=== PATIENT | female | born 1960 | race Caucasian/White ===

== ENCOUNTER 2017-12-23 10:11 | Emergency (ER) | payer MEDICARE, MEDICAID, SELFPAY ==
--- NOTE | 2017-12-23 10:24 | DI.RAD.S_ITS ---
PROCEDURE: XR CHEST 1V INDICATIONS: chest pain TECHNIQUE: One view of the chest was acquired. COMPARISON: [facility], CR, XR CHEST 1 VIEW, 08/14/2017, 10:53. FINDINGS: Surgical changes and devices: None. Lungs and pleura: No pleural effusions or pneumothorax. Lungs are clear. Mediastinum: Mediastinal contours appear normal. Heart size is normal. Bones and chest wall: No suspicious bony lesions. Degenerative changes of the spine and shoulders are not adequately evaluated. Overlying soft tissues appear unremarkable. IMPRESSION: Stable chest. No acute cardiopulmonary process is evident. Dictated by: Krish Egan M.D. on 12/23/2017 at 11:02 Approved by: Krish Egan M.D. on 12/23/2017 at 11:03
[2017-12-23 10:27] VITALS: BP 132/86; PULSE 76; RESP 16; TEMP 36.8; O2SAT 95; BMI 40.3
[2017-12-23] MEDS: ONDANSETRON 4 MG/2 ML INJ IV (10:47)
[2017-12-23] MEDS: SODIUM CHLORIDE 0.9% 1,000 ML 1000 ML IV (10:47)
[2017-12-23 10:51] LABS: Add Manual Diff / Slide Review NO; Basophils Percent Auto 0.3 % (0-2); Eosinophils Percent Auto 3.6 % (2-4); Hematocrit 34.8 % (36-46); Hemoglobin 11.8 g/dL (12.0-16.0); Lymphocytes Percent Auto 32.6 % (25-40); Mean Corpuscular Hemoglobin 33.5 PG (26-34); Mean Corpuscular Volume 98.6 fL (80-100); Monocytes Percent Auto 11.3 % (3-14); Neutrophils Absolute Auto 4000 /uL (3000-5900); Neutrophils Percent Auto 52.2 % (50-75); Platelet Count 200 X10^3/uL (150-400); Red Blood Cell Count 3.53 X10^6/uL (4.0-5.2); Red Cell Distribution Width 14.3 % (11.6-14.8); White Blood Cell Count 7.7 X10^3/uL (4.5-11.0)
[2017-12-23 11:03] LABS: Alanine Aminotransferase 44 IU/L (9-52); Albumin 3.7 g/dL (3.5-5.0); Albumin Globulin Ratio 1.2 (1.0-2.8); Alkaline Phosphatase 181 U/L (38-126); Aspartate Aminotransferase 37 IU/L (14-36); BUN Creatinine Ratio 23.8 (6-22); Bilirubin Total 0.4 mg/dL (0.2-1.3); Blood Urea Nitrogen 19 mg/dL (7-17); Calcium 9.2 mg/dL (8.4-10.2); Carbon Dioxide 29 mmol/L (22-32); Chloride 104 mmol/L (98-107); Estimated Glomerular Filt Rate > 60.0 mL/min (>60); Glucose 116 mg/dL (70-100); HEMOLYSIS < 15 (0-50); Potassium 4.1 mmol/L (3.4-5.1); Sodium 140 mmol/L (137-145); Total Protein 6.7 g/dL (6.3-8.2)
[2017-12-23 11:08] LABS: Lactate (Lactic Acid) 1.2 mmol/L (0.7-2.1)
[2017-12-23 11:17] LABS: Troponin I < 0.012 ng/mL (0.01-0.034)
[2017-12-23 11:27] LABS: Procalcitonin < 0.05 ng/mL (<0.5)
[2017-12-23 11:27] LABS: Bacteria Urine None Seen; RBC Urine None Seen (0-5/HPF)
[2017-12-23 11:29] LABS: Appearance Urine UA CLEAR; Bilirubin Urine UA NEGATIVE (NEGATIVE); Color Urine UA YELLOW; Glucose Urine UA NEGATIVE (Normal); Ketones Urine UA NEGATIVE (NEGATIVE); Leukocyte Esterase Urine UA NEGATIVE (NEGATIVE); Nitrite Urine UA Negative (Negative); Occult Blood Urine UA NEGATIVE (Negative); Protein Urine UA NEGATIVE (Negative); Specific Gravity Urine UA 1.015 (1.000-1.035); Urobilinogen Urine UA 0.2 E.U./dL (0.2)
[2017-12-23 11:35] VITALS: BP 103/73; PULSE 71; RESP 16; O2SAT 94
--- NOTE | 2017-12-23 11:52 | DI.CT.S_ITS ---
PROCEDURE: CT HEAD/BRAIN WO CON INDICATIONS: 57 year-old woman with nausea she has known brain tumor - change? TECHNIQUE: Noncontrast 4.5 mm thick angled axial sections acquired from the foramen magnum to the vertex, with coronal and sagittal reformats. For radiation dose reduction, the following was used: automated exposure control, adjustment of mA and/or kV according to patient size. COMPARISON: [facility], MR, BRAIN W&W/O CONTRAST, 02/22/2011, 19:19. [facility], MR, MR BRAIN W&WO CON, 02/20/2016, 11:13. [facility], MR, MR BRAIN W&WO CON, 04/20/2016, 11:45. [facility], MR, MR BRAIN W&WO CON, 07/17/2016, 9:39. [facility], CT, CT HEAD WITHOUT CONTRAST, 08/14/2017, 9:29. [facility], MR, MR BRAIN W&WO CON, 01/29/2017, 9:09. [facility], MR, MR BRAIN WITH/WITHOUT CONTRAST, 09/12/2017, 12:02. FINDINGS: Image quality: Excellent. CSF spaces: Basal cisterns are patent. No extra-axial fluid collections. The ventricles are symmetric in size and shape. Brain: There is postsurgical changes in the left frontal lobe. Severe encephalomalacia in frontal lobes bilaterally with associated dystrophic calcifications are unchanged, presumably secondary to post radiation changes. No intracranial bleeds or masses. There is cerebral volume loss for age, with resultant ventricular and sulcal prominence. There are severe periventricular and deep white matter chronic small vessel ischemic changes. There is intracranial internal carotid artery atherosclerosis. Skull and face: Left frontal craniotomy. Calvarium and visualized facial bones appear intact, without suspicious lesions. Sinuses: Visualized sinuses and mastoids are clear. IMPRESSION: 1. No acute intracranial abnormalities. 2. Stable postsurgical changes in the left frontal lobe and stable bilateral frontal encephalomalacia. 3. Cerebral volume loss and chronic microvascular ischemic changes. Dictated by: Mike Zamora M.D. on 12/23/2017 at 12:12 Approved by: Mike Zamora M.D. on 12/23/2017 at 12:20
--- NOTE | 2017-12-23 11:52 | DI.CT.S_ITS ---
PROCEDURE: CT ABDOMEN PELVIS W CON INDICATIONS: 57 year old woman with abdominal pain, greater in lower quadrants, TECHNIQUE: After the administration of intravenous contrast, 5 mm thick sections acquired from the diaphragm to the symphysis. 5 mm coronal and sagittal reformats were acquired. For radiation dose reduction, the following was used: automated exposure control, adjustment of mA and/or kV according to patient size. COMPARISON: [facility], CT, ABD/PELVIS W/CON (PNL), 02/12/2014, 11:04. [facility], CT, CT ANGIO CHEST PE, 02/27/2016, 12:46. FINDINGS: Image quality: Excellent. ABDOMEN: Lung bases: Mild basilar scar/atelectasis. Heart size is normal. There is a small hiatal hernia and concentric thickening at the gastroesophageal junction. Solid organs: Diffuse hepatic fatty infiltration. Liver is normal in size and enhancement. Gallbladder is surgically absent. Biliary system is non dilated. Pancreas enhances normally. Spleen is normal in size and enhancement. No adrenal nodules. Kidneys demonstrate normal size and enhancement, without hydronephrosis. Peritoneum and bowel: Bowel loops demonstrate normal wall thickness and caliber. Appendix is not visualized. No inflammatory stranding in the right lower quadrant. Moderate amount of stool in colon. No free fluid or air. Nodes and vessels: No retroperitoneal or mesenteric adenopathy by size criteria. Aorta and inferior vena cava are normal in size. Miscellaneous: No ventral hernias. A nerve stimulator is noted in the sacrum. PELVIS: Genitourinary: Bladder wall thickness is normal. Miscellaneous: No inguinal hernias or adenopathy. Bones: No suspicious bony lesions. No vertebral body compression fractures. IMPRESSION: 1. Small hiatal hernia and concentric thickening at the gastroesophageal junction. 2. Hepatic steatosis. 3. Moderate amount of stool in colon. 4. Cholecystectomy. Dictated by: Mike Zamora M.D. on 12/23/2017 at 12:21 Approved by: Mike Zamora M.D. on 12/23/2017 at 12:30
[2017-12-23 13:00] VITALS: BP 106/65; PULSE 74; RESP 16; O2SAT 94
[2017-12-23 13:32] LABS: Lipase 189 U/L (23-300)
[2017-12-23 13:35] LABS: Culture Indicated Urine Cult Not Indicated; Squamous Epithelial Cell Urine 1-5 /HPF; WBC Urine 1-5/HPF (0-5/HPF)
[2017-12-23 14:07] LABS: Troponin I < 0.012 ng/mL (0.01-0.034)
[2017-12-23 14:30] VITALS: BP 115/71; PULSE 74; RESP 14; O2SAT 99
--- NOTE | 2017-12-23 14:45 | ED.CHESTPAIN ---
HPI - Chest Pain General Chief Complaint: Chest Pain Stated Complaint: Weakness and nausea Time Seen by Provider: 12/23/17 10:18 History of Present Illness HPI narrative: HPI 57-year-old obese female with history of meningioma presents from a nursing facility complaining of transient hypotension (SBP reportedly in the 80s), poorly characterized chest pain of roughly 3 hours duration, nausea, and mild abdominal discomfort. Patient denies fevers, chills, dysuria, shortness of breath, headache, changes in vision or hearing, or recent changes in her brain tumor on routine surveillance imaging. Patient unable to identify any provoking or relieving factors. M/S/F/SocHx notable for: [please see HPI]; remainder reviewed with patient and in chart. ROS: Negative constitutional, eye, cardiovascular, pulmonary, GI, , MSK, skin, neurologic, psychiatric, endocrine unless noted in the HPI. Exam Gen: [Pleasant, non-toxic appearing, resting comfortably.] HEENT: NC, AT, PEERL, EOMI. Resp: [Clear to auscultation bilaterally, normal work of breathing.] Card: RRR with no M/R/G, no crackles in lung bases, no pedal edema, [no ]JVD appreciated. GI: obese, no rebound, no guarding, no clear reproducible tenderness to palpation throughout all quadrants. Adult undergarment in place. Vascular: [Both ankles, calves, and thighs of equal size, no calf tenderness to palpation bilaterally.] MSK: [No] chest wall TTP. No visible deformities, strength and tone WNL. Skin: Normal color with no visible lesions. Neuro: AO x 3, no facial asymmetry, vision and hearing WNL. Psych: Mood and affect appropriate. [Labs / Imaging (pertinent):] WBC 7.7, Hb 11.8, PT/INR 1.0, Na 140, K 4.1, total bilirubin 0.4, AST 37, ALT 44, ALP 181, lipase 189. PT/INR 1.0 Troponin <0.012, troponin (repeat) <0.012 procalcitonin <0.05, lactate 1.2 UA - negative nitrate, negative leukocyte esterase, no bacteria. EKG: SR at [75] bpm, no DC segment depressions, no new ST segment changes, new LBBB, or T-wave changes that would suggest acute ischemia. CT head: no acute intracranial abnormalities. Stable postsurgical changes in the left frontal nope and stable bilateral frontal encephalomalacia. Surgical volume loss and chronic microvascular ischemic changes. CT abdomen/pelvis: small hiatal hernia and concentric thickening at the gastroesophageal junction. Hepatic steatosis. Moderate amount of stool in the colon. Cholecystectomy. CXR: [No acute cardiopulmonary disease process]. MDM Previous chart, nursing note, and vitals reviewed. A: 57-year-old obese female with history of meningioma presents from a nursing facility complaining of transient hypotension (SBP reportedly in the 80s), poorly characterized chest pain of roughly 3 hours duration, nausea, and mild abdominal discomfort. DDx: ACS, unstable angina, pericarditis, myocarditis, dissection, PE, AAA, sepsis, dehydration. Evaluation: patient's symptoms are of unclear etiology, they were largely resolved at time of presentation or asymptomatic throughout the ED course. Patient's vital signs were monitoring stable throughout her ED course. Patient CT head was without evidence of acute changes, her CT abdomen and pelvis was without evidence of explaining etiology, her chest x-ray was clear, there is no evidence of ACS by nonischemic EKG and a negative troponin, new signs on history exam to suggest PE. Patient is without anemia. Labs, history, exam as well as imaging are without evidence of sepsis or an active infectious process. Unstable angina was considered on the differential, however patient symptoms are highly atypical, as such is appropriate for PCP follow-up. ED Course: 1 L NS and 4 mg Zofran given with initial evaluation. Disposition: [Discharge with PCP follow up. Return to care precautions given verbally and in writing. Zofran Rx provided. Impression: nausea, chest pain (please reference below for remainder of encounter information) Related Data Home Medications Medication Instructions Recorded Confirmed Fish Oil 1 cap PO DAILY 12/23/17 12/23/17 Vitamin D3 1 tab PO DAILY 12/23/17 12/23/17 acetaminophen 650 mg PO Q4H PRN 12/23/17 12/23/17 aspirin 81 mg PO DAILY 12/23/17 12/23/17 citalopram 20 mg PO DAILY 12/23/17 12/23/17 dexamethasone 2 mg PO QPM 12/23/17 12/23/17 folic acid 1 tab PO QPM 12/23/17 12/23/17 ibuprofen 400 mg PO BID 12/23/17 12/23/17 magnesium oxide 400 mg PO DAILY 12/23/17 12/23/17 melatonin 6 mg PO BEDTIME 12/23/17 12/23/17 midodrine 5 mg PO TID 12/23/17 12/23/17 nystatin [Nystop] 1 applic TOPICAL Q6H PRN 12/23/17 12/23/17 omeprazole 20 mg PO BID 12/23/17 12/23/17 ondansetron HCl 4 mg PO Q6H PRN 12/23/17 12/23/17 oxycodone-acetaminophen 1 tab PO BEDTIME PRN 12/23/17 12/23/17 phenytoin sodium extended 2 cap PO BID 12/23/17 12/23/17 simvastatin 20 mg PO QPM 12/23/17 12/23/17 tolterodine 4 mg PO DAILY 12/23/17 12/23/17 Allergies Allergy/AdvReac Type Severity Reaction Status Date / Time adhesive tape Allergy Unknown Verified 12/23/17 10:57 escitalopram Allergy Unknown Verified 12/23/17 10:57 lamotrigine Allergy Unknown Verified 12/23/17 10:57 levetiracetam Allergy Unknown Verified 12/23/17 10:57 Penicillins Allergy Unknown Verified 12/23/17 10:57 silicone Allergy Unknown Verified 12/23/17 10:57 zonisamide Allergy Unknown Verified 12/23/17 10:57 [facility] Social History Smoking Status: Never smoker Exam Initial Vital Signs Initial Vital Signs: Vital Signs Temperature 98.2 F 12/23/17 10:27 Pulse Rate 76 12/23/17 10:27 Respiratory Rate 16 12/23/17 10:27 Blood Pressure 132/86 H 12/23/17 10:27 Pulse Oximetry 95 08/20/18 10:27 Course Orders Ordered: ED Orders 12/23/17 10:24 XR chest 1V Stat 12/23/17 10:42 Complete Blood Count AUTO DIFF Stat Comprehensive Metabolic Panel Stat Lactate (Lactic Acid) Stat Lipase Stat Procalcitonin Stat Prothrombin Time INR Stat Troponin I Stat 12/23/17 11:15 Urinalysis and Microscopic Stat 12/23/17 11:52 CT abdomen pelvis w con Stat CT head/brain wo con Stat 12/23/17 13:40 Troponin I Stat Discontinued Medications Sodium Chloride (Normal Saline 0.9%) 1,000 mls @ 1,000 mls/hr IV BOLUS ONE Stop: 12/23/17 11:23 Last Infusion: 12/23/17 11:36 Dose: 0 mls/hr Admin: 12/23/17 10:47 Dose: 1,000 mls/hr Ondansetron HCl (Zofran) 4 mg IV NOW ONE Stop: 12/23/17 10:25 Last Admin: 12/23/17 10:47 Dose: 4 mg Vital Signs - 8 hr 12/23/17 10:27 12/23/17 11:35 12/23/17 13:00 Temperature 98.2 F Pulse Rate 76 71 74 Respiratory Rate 16 16 16 Blood Pressure 132/86 H Blood Pressure [Right Arm] 103/73 106/65 Pulse Oximetry 95 94 94 12/23/17 14:30 Temperature Pulse Rate 74 Respiratory Rate 14 Blood Pressure Blood Pressure [Right Arm] 115/71 Pulse Oximetry 99 MDM - Chest Pain Lab Data Result diagrams: 12/23/17 10:42 12/23/17 10:42 Lab Results 12/23/17 12/23/17 12/23/17 Range/Units 10:42 10:42 10:42 WBC 7.7 (4.5-11.0) X10^3/uL RBC 3.53 L (4.0-5.2) X10^6/uL Hgb 11.8 L (12.0-16.0) g/dL Hct 34.8 L (36-46) % MCV 98.6 (80-100) fL MCH 33.5 (26-34) PG MCHC 34.0 (30-36) % RDW 14.3 (11.6-14.8) % Plt Count 200 (150-400) X10^3/uL Neut % (Auto) 52.2 (50-75) % Lymph % (Auto) 32.6 (25-40) % [place] % (Auto) 11.3 (3-14) % Eos % (Auto) 3.6 (2-4) % Baso % (Auto) 0.3 (0-2) % Neut # (Auto) 4000 (0150-2269) /uL PT (10.1-12.7) SECONDS INR (0.9-1.3) Sodium Cancelled Potassium Cancelled Chloride Cancelled Carbon Dioxide Cancelled BUN Cancelled Creatinine Cancelled Estimated GFR Cancelled BUN/Creatinine Ratio Cancelled Glucose Cancelled Lactate 1.2 (0.7-2.1) mmol/L Calcium Cancelled Total Bilirubin Cancelled AST Cancelled ALT Cancelled Alkaline Phosphatase Cancelled Troponin I (0.01-0.034) ng/mL Total Protein Cancelled Albumin Cancelled Globulin Cancelled Albumin/Globulin Ratio Cancelled Lipase (23-300) U/L Procalcitonin (<0.5) ng/mL Specimen Hemolysis Cancelled Urine Color Urine Appearance Urine pH (4.5-8.0) Ur Specific [place] (1.000-1.035) Urine Protein (Negative) Urine Glucose (UA) (Normal) g/dL Urine Ketones (NEGATIVE) Urine Occult Blood (Negative) Urine Nitrate (Negative) Urine Bilirubin (NEGATIVE) Urine Urobilinogen (0.2) E.U./dL Ur Leukocyte Esterase (NEGATIVE) Urine RBC (0-5/HPF) Urine WBC (0-5/HPF) Ur Squamous Epith Cells Urine Bacteria (None) Ur Culture Indicated? Micro UA Comment 12/23/17 12/23/17 12/23/17 Range/Units 10:42 10:42 10:42 WBC (4.5-11.0) X10^3/uL RBC (4.0-5.2) X10^6/uL Hgb (12.0-16.0) g/dL Hct (36-46) % MCV (80-100) fL MCH (26-34) PG MCHC (30-36) % RDW (11.6-14.8) % Plt Count (150-400) X10^3/uL Neut % (Auto) (50-75) % Lymph % (Auto) (25-40) % [place] % (Auto) (3-14) % Eos % (Auto) (2-4) % Baso % (Auto) (0-2) % Neut # (Auto) (5477-0389) /uL PT 11.0 (10.1-12.7) SECONDS INR 1.0 (0.9-1.3) Sodium 140 Potassium 4.1 Chloride 104 Carbon Dioxide 29 BUN 19 H Creatinine 0.80 Estimated GFR > 60.0 BUN/Creatinine Ratio 23.8 H Glucose 116 H Lactate (0.7-2.1) mmol/L Calcium 9.2 Total Bilirubin 0.4 AST 37 H ALT 44 Alkaline Phosphatase 181 H Troponin I < 0.012 (0.01-0.034) ng/mL Total Protein 6.7 Albumin 3.7 Globulin 3.0 Albumin/Globulin Ratio 1.2 Lipase 189 (23-300) U/L Procalcitonin < 0.05 (<0.5) ng/mL Specimen Hemolysis Urine Color Urine Appearance Urine pH (4.5-8.0) Ur Specific [place] (1.000-1.035) Urine Protein (Negative) Urine Glucose (UA) (Normal) g/dL Urine Ketones (NEGATIVE) Urine Occult Blood (Negative) Urine Nitrate (Negative) Urine Bilirubin (NEGATIVE) Urine Urobilinogen (0.2) E.U./dL Ur Leukocyte Esterase (NEGATIVE) Urine RBC (0-5/HPF) Urine WBC (0-5/HPF) Ur Squamous Epith Cells Urine Bacteria (None) Ur Culture Indicated? Micro UA Comment 12/23/17 12/23/17 Range/Units 11:15 13:40 WBC (4.5-11.0) X10^3/uL RBC (4.0-5.2) X10^6/uL Hgb (12.0-16.0) g/dL Hct (36-46) % MCV (80-100) fL MCH (26-34) PG MCHC (30-36) % RDW (11.6-14.8) % Plt Count (150-400) X10^3/uL Neut % (Auto) (50-75) % Lymph % (Auto) (25-40) % [place] % (Auto) (3-14) % Eos % (Auto) (2-4) % Baso % (Auto) (0-2) % Neut # (Auto) (1757-1505) /uL PT (10.1-12.7) SECONDS INR (0.9-1.3) Sodium Potassium Chloride Carbon Dioxide BUN Creatinine Estimated GFR BUN/Creatinine Ratio Glucose Lactate (0.7-2.1) mmol/L Calcium Total Bilirubin AST ALT Alkaline Phosphatase Troponin I < 0.012 (0.01-0.034) ng/mL Total Protein Albumin Globulin Albumin/Globulin Ratio Lipase (23-300) U/L Procalcitonin (<0.5) ng/mL Specimen Hemolysis Urine Color Yellow Urine Appearance Clear Urine pH 6.0 (4.5-8.0) Ur Specific [place] 1.015 (1.000-1.035) Urine Protein Negative (Negative) Urine Glucose (UA) Negative (Normal) g/dL Urine Ketones Negative (NEGATIVE) Urine Occult Blood Negative (Negative) Urine Nitrate Negative (Negative) Urine Bilirubin Negative (NEGATIVE) Urine Urobilinogen 0.2 (0.2) E.U./dL Ur Leukocyte Esterase Negative (NEGATIVE) Urine RBC None seen (0-5/HPF) Urine WBC 1-5/hpf (0-5/HPF) Ur Squamous Epith Cells 1-5 /hpf Urine Bacteria None seen (None) Ur Culture Indicated? Cult not indicated Micro UA Comment Not Reportable Discharge Plan Departure Prescriptions: No Action melatonin 3 mg Tablet 6 mg PO BEDTIME RF: 0 folic acid 400 mcg Tablet 1 tab PO QPM RF: 0 aspirin 81 mg Tablet,Delayed Release (Dr/Ec) 81 mg PO DAILY RF: 0 citalopram 20 mg tablet 20 mg PO DAILY RF: 0 magnesium oxide 400 mg Tablet 400 mg PO DAILY RF: 0 dexamethasone 2 mg tablet 2 mg PO QPM RF: 0 Fish Oil 1 cap PO DAILY RF: 0 acetaminophen 325 mg Tablet 650 mg PO Q4H PRN (Reason: Fever Or Pain) RF: 0 tolterodine 4 mg capsule,extended release 24hr 4 mg PO DAILY RF: 0 ondansetron HCl 4 mg tablet 4 mg PO Q6H PRN (Reason: Nausea And Vomiting) RF: 0 midodrine 5 mg tablet 5 mg PO TID RF: 0 phenytoin sodium extended 100 mg capsule 2 cap PO BID RF: 0 oxycodone-acetaminophen 5-325 mg tablet 1 tab PO BEDTIME PRN (Reason: moderate pain/discomfort) RF: 0 simvastatin 20 mg tablet 20 mg PO QPM RF: 0 ibuprofen 400 mg Tablet 400 mg PO BID RF: 0 omeprazole 20 mg capsule,delayed release(DR/EC) 20 mg PO BID RF: 0 nystatin [Nystop] 100,000 unit/gram powder 1 applic Topical Q6H PRN (Reason: Rash) RF: 0 Vitamin D3 1 tab PO DAILY RF: 0
== END 2017-12-23 15:02 | disposition home or self-care (01) ==
PROVIDERS: Emergency Provider Emergency Medicine; PCP Internal Medicine
DX: R07.89 Other chest pain (principal); R11.0 Nausea
CPT/HCPCS: 70450; 71045; 74177; 80053; 81001; 83605; 83690; 84145; 84484; 85025; 85610; 93005; 93010; 93041; 96361; 96374; 99285; J2405; Q9967

== ENCOUNTER → 2018-01-07 08:44 | Outpatient (REF) | payer MEDICARE, MEDICAID, SELFPAY ==
[2018-01-07 09:23] LABS: Phenytoin / Dilantin 7.9 ug/mL (10-20)
== END ==
LOC: LAB 08:44
PROVIDERS: PCP Internal Medicine; Visit Provider Internal Medicine
DX: E11.9 Type 2 diabetes mellitus without complications (principal); R56.9 Unspecified convulsions
CPT/HCPCS: 36415; 80185

== ENCOUNTER 2018-01-12 19:28 | Emergency (ER) | payer MEDICARE, MEDICAID, SELFPAY ==
[2018-01-12 19:32] VITALS: BP 139/83; PULSE 86; RESP 18; TEMP 36.7; O2SAT 97
--- NOTE | 2018-01-12 19:44 | PC.NURSE ---
pt reports acute onset dizziness while turning to get into my chair, fell backward into wall, struck back of head, denies LOC, reports headache/nausea began immediately following fall, nausea slightly improved following zofran 4mg ODT [employer], denies cough/cp/soa/fever/bowel pattern changes/dysuria or other sx, no neck/pain tenderness, moving all ext
--- NOTE | 2018-01-12 19:48 | PC.NURSE ---
Bedside POC CBG 261
--- NOTE | 2018-01-12 19:54 | ED.FALL ---
HPI - Fall General Chief Complaint: Syncope Stated Complaint: GLF Time Seen by Provider: 01/12/18 19:54 Source: patient and EMS Mode of arrival: EMS Limitations: no limitations History of Present Illness HPI Narrative: Patient states she lost her balance while getting out of her wheelchair and fell against the corner of the wall. She states she hit her head in the corner, as well as her sacral area. Patient states it is very common for her to lose her balance, and that she has had these issues ever since being treated for brain tumor 5 years ago. She states her tumor is in remission, but that after the radiation and chemotherapy, and she had ongoing issues, and has had to live in assisted living or worsens. She states she mainly has a headache and is nauseated now. She states this started after hitting her head. She also states that she has some sacral pain. Patient denies any other injuries. She did not fall all the way to the ground and did not lose consciousness. MD complaint: fall Onset (ago): minute(s) Fall from: standing Fall witnessed: no Place fall occurred: jail[facility] Loss of consciousness: none Prolonged down time: no Symptoms prior to fall: none Context: other Location of injury: head and back (Sacrum) Severity: moderate Quality: throbbing Associated symptoms (after fall): headache and unable to walk (Nausea) Related Data Home Medications Medication Instructions Recorded Confirmed Fish Oil 1 cap PO DAILY 12/23/17 01/07/18 Vitamin D3 1 tab PO DAILY 12/23/17 01/07/18 acetaminophen 650 mg PO Q4H PRN 12/23/17 01/07/18 aspirin 81 mg PO DAILY 12/23/17 01/07/18 citalopram 20 mg PO DAILY 12/23/17 01/07/18 dexamethasone 2 mg PO QPM 12/23/17 01/07/18 folic acid 1 tab PO QPM 12/23/17 01/07/18 ibuprofen 400 mg PO BID 12/23/17 01/07/18 magnesium oxide 400 mg PO DAILY 12/23/17 01/07/18 melatonin 6 mg PO BEDTIME 12/23/17 01/07/18 midodrine 5 mg PO TID 12/23/17 01/07/18 nystatin [Nystop] 1 applic TOPICAL Q6H PRN 12/23/17 01/07/18 omeprazole 20 mg PO BID 12/23/17 01/07/18 ondansetron HCl 4 mg PO Q6H PRN 12/23/17 01/07/18 oxycodone-acetaminophen 1 tab PO BEDTIME PRN 12/23/17 01/07/18 phenytoin sodium extended 2 cap PO BID 12/23/17 01/07/18 simvastatin 20 mg PO QPM 12/23/17 01/07/18 tolterodine 4 mg PO DAILY 12/23/17 01/07/18 insulin glargine (U-100) 100 20 unit SUBCUT .pm 15 Days ml 01/07/18 unit/mL (3 mL) subcutaneous pen pen needle, diabetic 32 gauge x #100 each 01/07/18 pen needle,diabetic dual safety 30 #100 each 01/07/18 gauge x 3/16 Previous Rx's Medication Instructions Recorded ondansetron HCl 4 mg PO TID-QID PRN #10 tab 12/23/17 Allergies Allergy/AdvReac Type Severity Reaction Status Date / Time adhesive tape Allergy Unknown Verified 01/07/18 15:02 escitalopram Allergy Unknown Verified 01/07/18 15:02 lamotrigine Allergy Unknown Verified 01/07/18 15:02 levetiracetam Allergy Unknown Verified 01/07/18 15:02 Penicillins Allergy Unknown Verified 01/07/18 15:02 silicone Allergy Unknown Verified 01/07/18 15:02 zonisamide Allergy Unknown Verified 01/07/18 15:02 Review of Systems Review of Systems All systems reviewed & are unremarkable except as noted in HPI and below Constitutional Denies chills, Denies fever(s), Reports headache(s) (Only since fall), Denies lethargy and Denies weakness Eyes Denies change in vision, Denies eye discharge, Denies irritation and Denies loss of vision ENT Ears, Nose, Mouth, and Throat: Denies change in voice, Reports headache(s) (Only since fall), Denies neck pain and Denies sore throat Cardiovascular Denies chest pain, Denies irregular heart rhythm, Denies lightheadedness, Denies palpitations, Denies dyspnea, Denies dyspnea on exertion and Denies orthopnea Respiratory Denies cough, Denies dyspnea, Denies dyspnea on exertion and Denies wheezing Gastrointestinal Gastrointestinal: Denies abdominal pain, Denies change in bowel habits, Denies diarrhea, Denies nausea and Denies vomiting Genitourinary Denies hematuria, Denies flank pain, Denies urinary incontinence and Denies urinary urgency Musculoskeletal Denies neck pain Comments: Sacral pain Integumentary/Breasts Denies pruritus, Denies erythema, Denies rash and Denies wounds Neurologic Denies confusion, Reports headache(s) (Only since fall), Denies loss of vision and Denies weakness Psychiatric Denies anxiety, Denies confusion, Denies depression, Denies homicidal ideation and Denies suicidal ideation Endocrine Denies palpitations Hematologic/Lymphatic Denies easy bruising Allergic/Immunologic Denies wheezing Exam Initial Vital Signs Initial Vital Signs: Vital Signs Temperature 98.1 F 01/12/18 19:32 Pulse Rate 86 01/12/18 19:32 Respiratory Rate 18 01/12/18 19:32 Blood Pressure 139/83 01/12/18 19:32 Pulse Oximetry 97 01/12/18 19:32 Const General: cooperative and well developed Nutritional Appearance: well nourished Orientation: alert, awake, oriented x3 and not confused HENTX Head: normocephalic and atraumatic Ears: external ears normal and TM's normal bilaterally Nose: external nose normal and No nasal discharge Face and sinus: face symmetric and No dry mucous membranes Mouth: oral mucosae normal and moist mucous membranes Eyes General: appearance normal, both eyes and all related structures Eyelids: eyelids normal Conjunctivae: conjunctivae normal Sclera: sclerae normal Pupils: PERRL EOM: EOM intact bilaterally Neck Neck: normal visual inspection, trachea midline, No lymphadenopathy, No midline deformity and No JVD Lymphatic: No lymphedema Chest Chest: normal inspection of the chest Resp Effort & Inspection: normal respiratory effort, able to speak in complete sentences, no respiratory distress and no use of accessory muscles Auscultation: clear to auscultation bilaterally, no rales, no rhonchi and no wheezes Cardio Rate: regular rate Rhythm: regular rhythm Heart Sounds: no click, no gallops, no murmurs and no rubs Pulses: normal peripheral pulses GI Inspection: non-distended Palpation: soft, no hepatosplenomegaly, No guarding, No pulsatile mass and No tender Auscultation: normal bowel sounds Back/Spine/Pelvis Back: No CVA tenderness Cervical Spine: cervical ROM normal and No pain with cervical ROM Thoracic/Lumbar Spine: thoracic and lumbar spine normal to inspection Sacrum: tenderness (Mild) Skin General: no rashes or lesions noted, No jaundice and No petechiae Neuro General: alert, oriented x3, gait normal and no focal motor deficits Speech: speech normal Extrem General: full ROM, no clubbing, cyanosis or edema, no pedal edema and no calf tenderness Psych Appearance: well kempt Mental Status: mental status grossly normal Attitude: cooperative Thought Content: normal and suicidality Judgment: judgment good [facility] Medical History Meningioma (Chronic ~2011) Diabetes mellitus type 2, insulin dependent (Chronic ~2007) Cognitive dysfunction (Chronic) Depression (Chronic) Urinary incontinence (Chronic) Other and unspecified hyperlipidemia (Chronic) Orthostatic hypotension (Chronic) Seizure disorder (Chronic) GERD without esophagitis (Chronic) Surgical History No pertinent past surgical history (Acute) Social History marital status: number of children: 3 lives independently: Yes caregiver/support person: Yes housing: assisted living facility pets and animals: No education level: high school occupational status: disabled Previous occupational history: [employer] in [place] duncan/bahai: None leisure activities: games (Bingo) and other (Movies, TV) Smoking Status: Former smoker Tobacco: How many years used: 2 Smokeless tobacco user: other (Cigarettes) quit status: quit date established (2010) second hand exposure: No alcohol intake: never substance use type: does not use Course Course Narrative: Patient was stable throughout her stay in the emergency department. She was treated symptomatically with Zofran and Dilaudid. She was worked up with a CT scan of the brain, which was negative. Orders Ordered: Discontinued Medications Hydromorphone HCl (Dilaudid) 0.5 mg IV NOW ONE Stop: 01/12/18 20:04 Last Admin: 01/12/18 20:37 Dose: 0.5 mg Ondansetron HCl (Zofran) 4 mg IV NOW ONE Stop: 01/12/18 20:04 Last Admin: 01/12/18 20:37 Dose: 4 mg Vital Signs - 8 hr 01/12/18 19:32 Temperature 98.1 F Pulse Rate 86 Respiratory Rate 18 Blood Pressure 139/83 Pulse Oximetry 97 MDM - Fall Medical Records Attestation: I reviewed the patient's medical records. Imaging Data CT scan - head: Attestation: I personally reviewed and interpreted this imaging study as follows: My impression: Negative Radiologist's impression: [address] [address] [address] Scan Report Signed Patient: Yandy Claudio#: [id number] : 1Acct:[id number] Age/Sex: 57 / FDate of Service: 01/12/18 Loc: ED Accession Number: [id number] Procedure: CT head/brain wo con Ordering Provider: Flor Garza MD PROCEDURE: CT HEAD/BRAIN WO CON INDICATIONS: head injury TECHNIQUE: Noncontrast 4.5 mm thick angled axial sections acquired from the foramen magnum to the vertex, with coronal and sagittal reformats. For radiation dose reduction, the following was used: automated exposure control, adjustment of mA and/or kV according to patient size. COMPARISON: [facility], CT, CT HEAD/BRAIN WO CON, 12/23/2017, 11:35. FINDINGS: Image quality: Excellent. CSF spaces: Basal cisterns are patent. No extra-axial fluid collections. Ventricles are normal in size and shape. Brain: No midline shift. No intracranial masses or hemorrhage. Sainz-white matter interface is normal posteriorly but the area of encephalomalacia prominent at the frontal lobes bilaterally has not changed and is associated with areas of mildly serpiginous calcifications to the right of midline and focal left lateral ovoid calcification in the anterior insular cortex. Skull and face: Calvarium and visualized facial bones are intact, without suspicious lesions. Sinuses: Visualized sinuses and mastoids are clear. IMPRESSION: Stable over time with relatively severe bilateral frontal encephalomalacia related to presumed prior severe head trauma. No acute disease, no intracranial hemorrhage found. Old calcifications as discussed. Dictated by: Amadou Garcia M.D. on 01/12/2018 at 20:38 Approved by: Amadou Garcia M.D. on 01/12/2018 at 20:41 Discharge Plan Departure Patient Disposition: Home Clinical Impression: Closed head injury Discharge Date/Time: 01/12/18 21:42 Interventions: ED Discharge Assessment Last Done: 01/12/18 21:42 Instructions: DI for Closed Head Injury Activity Restrictions/Additional Instructions: Up your head CT looks good--no evidence of acute injury. Prescriptions: No Action pen needle, diabetic 32 gauge x 5/32 needle .ROUTE .MEDSUPPLY 30 Days Qty: 100 RF: 0 pen needle,diabetic dual safty 30 gauge x 3/16 needle .ROUTE .MEDSUPPLY 25 Days Qty: 100 RF: 0 insulin glargine 100 unit/mL (3 mL) insulin pen 20 unit SUBCUT .pm 15 Days RF: 0 melatonin 3 mg Tablet 6 mg PO BEDTIME RF: 0 folic acid 400 mcg Tablet 1 tab PO QPM RF: 0 aspirin 81 mg Tablet,Delayed Release (Dr/Ec) 81 mg PO DAILY RF: 0 citalopram 20 mg tablet 20 mg PO DAILY RF: 0 magnesium oxide 400 mg Tablet 400 mg PO DAILY RF: 0 dexamethasone 2 mg tablet 2 mg PO QPM RF: 0 Fish Oil 1 cap PO DAILY RF: 0 acetaminophen 325 mg Tablet 650 mg PO Q4H PRN (Reason: Fever Or Pain) RF: 0 tolterodine 4 mg capsule,extended release 24hr 4 mg PO DAILY RF: 0 ondansetron HCl 4 mg tablet 4 mg PO Q6H PRN (Reason: Nausea And Vomiting) RF: 0 midodrine 5 mg tablet 5 mg PO TID RF: 0 phenytoin sodium extended 100 mg capsule 2 cap PO BID RF: 0 oxycodone-acetaminophen 5-325 mg tablet 1 tab PO BEDTIME PRN (Reason: moderate pain/discomfort) RF: 0 simvastatin 20 mg tablet 20 mg PO QPM RF: 0 ibuprofen 400 mg Tablet 400 mg PO BID RF: 0 omeprazole 20 mg capsule,delayed release(DR/EC) 20 mg PO BID RF: 0 nystatin [Nystop] 100,000 unit/gram powder 1 applic Topical Q6H PRN (Reason: Rash) RF: 0 Vitamin D3 1 tab PO DAILY RF: 0 ondansetron HCl 4 mg tablet 4 mg PO TID-QID PRN (Reason: nausea and vomiting) Qty: 10 RF: 0 Referrals: Naveen Vaughn MD [Primary Care Provider] - (Please follow up with your doctor as needed.)
--- NOTE | 2018-01-12 20:03 | DI.CT.S_ITS ---
PROCEDURE: CT HEAD/BRAIN WO CON INDICATIONS: head injury TECHNIQUE: Noncontrast 4.5 mm thick angled axial sections acquired from the foramen magnum to the vertex, with coronal and sagittal reformats. For radiation dose reduction, the following was used: automated exposure control, adjustment of mA and/or kV according to patient size. COMPARISON: [facility], CT, CT HEAD/BRAIN WO CON, 12/23/2017, 11:35. FINDINGS: Image quality: Excellent. CSF spaces: Basal cisterns are patent. No extra-axial fluid collections. Ventricles are normal in size and shape. Brain: No midline shift. No intracranial masses or hemorrhage. Sainz-white matter interface is normal posteriorly but the area of encephalomalacia prominent at the frontal lobes bilaterally has not changed and is associated with areas of mildly serpiginous calcifications to the right of midline and focal left lateral ovoid calcification in the anterior insular cortex. Skull and face: Calvarium and visualized facial bones are intact, without suspicious lesions. Sinuses: Visualized sinuses and mastoids are clear. IMPRESSION: Stable over time with relatively severe bilateral frontal encephalomalacia related to presumed prior severe head trauma. No acute disease, no intracranial hemorrhage found. Old calcifications as discussed. Dictated by: Amadou Garcia M.D. on 01/12/2018 at 20:38 Approved by: Amadou Garcia M.D. on 01/12/2018 at 20:41
[2018-01-12 20:31] VITALS: BP 119/62; PULSE 80; RESP 19; O2SAT 96
[2018-01-12] MEDS: ONDANSETRON 4 MG/2 ML INJ IV (20:37)
[2018-01-12] MEDS: HYDROMORPHONE 1 MG INJ 0.5 MG IV (20:37)
[2018-01-12 21:42] VITALS: BP 118/72; PULSE 79; RESP 18; O2SAT 96
== END 2018-01-12 21:42 | disposition home or self-care (01) ==
PROVIDERS: Emergency Provider Emergency Medicine; PCP Internal Medicine
DX: S09.90XA Unspecified injury of head, initial encounter (principal); W18.30XA Fall on same level, unspecified, initial encounter
CPT/HCPCS: 36591; 70450; 93005; 93010; 96374; 96375; 99282; 99284; J1170; J2405

== ENCOUNTER → 2018-02-25 14:07 | Outpatient (CLI) | payer MEDICARE, MEDICAID, SELFPAY ==
[2018-02-25 14:52] LABS: Add Manual Diff / Slide Review NO; Basophils Percent Auto 1.3 % (0-2); Eosinophils Percent Auto 3.8 % (2-4); Hemoglobin 12.5 g/dL (12.0-16.0); Lymphocytes Percent Auto 27.4 % (25-40); Mean Corpuscular HGB Conc 33.9 % (30-36); Mean Corpuscular Hemoglobin 33.9 PG (26-34); Monocytes Percent Auto 9.2 % (3-14); Neutrophils Absolute Auto 4500 /uL (3000-5900); Neutrophils Percent Auto 58.3 % (50-75); Platelet Count 195 X10^3/uL (150-400); Red Cell Distribution Width 13.6 % (11.6-14.8); White Blood Cell Count 7.7 X10^3/uL (4.5-11.0)
[2018-02-25 15:19] LABS: Alanine Aminotransferase 61 IU/L (9-52); Albumin 4.1 g/dL (3.5-5.0); Albumin Globulin Ratio 1.4 (1.0-2.8); Alkaline Phosphatase 187 U/L (38-126); Aspartate Aminotransferase 52 IU/L (14-36); Bilirubin Total 0.4 mg/dL (0.2-1.3); Blood Urea Nitrogen 20 mg/dL (7-17); Calcium 9.1 mg/dL (8.4-10.2); Carbon Dioxide 25 mmol/L (22-32); Chloride 102 mmol/L (98-107); Estimated Glomerular Filt Rate > 60.0 mL/min (>60); Glucose 313 mg/dL (70-100); HEMOLYSIS < 15 (0-50); Magnesium 1.6 mg/dL (1.6-2.3); Phenytoin / Dilantin 16.7 ug/mL (10-20); Potassium 3.6 mmol/L (3.4-5.1); Sodium 139 mmol/L (137-145); Total Protein 7.1 g/dL (6.3-8.2)
[2018-02-25 15:25] LABS: Free T4, Direct Thyroxine 0.62 ng/dL (0.78-2.19)
== END ==
PROVIDERS: PCP Internal Medicine; Visit Provider Internal Medicine
DX: E11.9 Type 2 diabetes mellitus without complications (principal); R56.9 Unspecified convulsions; D32.9 Benign neoplasm of meninges, unspecified; G40.909 Epilepsy, unspecified, not intractable, without status epilepticus; R53.1 Weakness
CPT/HCPCS: 36415; 80053; 80185; 83036; 83735; 84439; 84443; 85025

== ENCOUNTER → 2018-03-03 12:11 | Outpatient (REF) | payer MEDICARE, MEDICAID, SELFPAY ==
[2018-03-03 12:14] LABS: Bacteria Urine None Seen; RBC Urine None Seen (0-5/HPF); WBC Urine None Seen (0-5/HPF)
[2018-03-03 12:20] LABS: Appearance Urine UA CLEAR; Bilirubin Urine UA NEGATIVE (NEGATIVE); Color Urine UA YELLOW; Glucose Urine UA 2+ g/dL (Normal); Ketones Urine UA NEGATIVE (NEGATIVE); Leukocyte Esterase Urine UA NEGATIVE (NEGATIVE); Nitrite Urine UA NEGATIVE (Negative); Occult Blood Urine UA NEGATIVE (Negative); Protein Urine UA NEGATIVE (Negative); Specific Gravity Urine UA 1.015 (1.000-1.035); Urobilinogen Urine UA 0.2 E.U./dL (0.2)
[2018-03-03 12:25] LABS: Culture Indicated Urine Cult Not Indicated; Urine Comments Microscopic Normal
== END ==
LOC: LAB 12:11
PROVIDERS: PCP Internal Medicine; Visit Provider Internal Medicine
DX: R41.0 Disorientation, unspecified (principal)
CPT/HCPCS: 81001

== ENCOUNTER → 2018-04-16 16:57 | Outpatient (REF) | payer MEDICARE, MEDICAID, SELFPAY ==
[2018-04-16 16:59] LABS: RBC Urine None Seen (0-5/HPF)
[2018-04-16 17:06] LABS: Appearance Urine UA CLEAR; Bilirubin Urine UA NEGATIVE (NEGATIVE); Color Urine UA YELLOW; Glucose Urine UA 2+ g/dL (Normal); Ketones Urine UA NEGATIVE (NEGATIVE); Leukocyte Esterase Urine UA NEGATIVE (NEGATIVE); Nitrite Urine UA NEGATIVE (Negative); Occult Blood Urine UA NEGATIVE (Negative); Protein Urine UA NEGATIVE (Negative); Specific Gravity Urine UA 1.025 (1.000-1.035); Urobilinogen Urine UA 0.2 E.U./dL (0.2)
[2018-04-16 17:39] LABS: Amorphous Sediment Urine 1+; Bacteria Urine Few (2-10); Culture Indicated Urine Cult Not Indicated; Mucus Urine 1+ (Negative); Squamous Epithelial Cell Urine 5-10 /HPF; WBC Urine 1-5/HPF (0-5/HPF)
== END ==
LOC: LAB 16:57
PROVIDERS: PCP Internal Medicine; Visit Provider Internal Medicine
DX: R39.89 Other symptoms and signs involving the genitourinary system (principal)
CPT/HCPCS: 81001

== ENCOUNTER → 2018-05-31 19:15 | Outpatient (REF) | payer MEDICARE, MEDICAID, SELFPAY ==
[2018-05-31 20:54] LABS: Influenza A and B by PCR Rapid Negative (Negative)
[2018-05-31 21:04] LABS: Strep Grp A by PCR Rapid Negative
== END ==
LOC: LAB 19:15
PROVIDERS: PCP Internal Medicine; Visit Provider Family Medicine
DX: R05 Cough (principal); R50.9 Fever, unspecified
CPT/HCPCS: 87400; 87651

== ENCOUNTER 2018-06-01 05:51 | Emergency (ER) | payer MEDICARE, MEDICAID, SELFPAY ==
[2018-06-01 05:55] VITALS: BP 158/84; PULSE 73; RESP 20; TEMP 36.8; O2SAT 94; BMI 39.9
--- NOTE | 2018-06-01 06:06 | ED.URI ---
HPI - URI/Sore Throat <Chuy Gasca MD - Last Filed: 06/01/18 19:32> General Chief Complaint: Upper Respiratory Symptoms Stated Complaint: Sore throat/cough/fever Time Seen by Provider: 06/01/18 06:06 Source: patient Mode of arrival: EMS Limitations: no limitations History of Present Illness HPI Narrative: The patient has multiple significant illnesses. She currently resides in the facility next to the hospital, a nursing care facility. She has been coughing for about 5 days. She complains sore throat and hoarseness. She has frequent cough. She complains of upper abdominal chest pain and lower sternal chest discomfort. The pain is exacerbated by coughing. She has no obvious cardiac disease. She states she has been around others with similar illness. She is a nonsmoker. She does not have CHF. She denies asthma. Related Data Home Medications Medication Instructions Recorded Confirmed aspirin 81 mg PO DAILY 12/23/17 06/01/18 citalopram 20 mg PO DAILY 12/23/17 06/01/18 ibuprofen 400 mg PO BID 12/23/17 06/01/18 magnesium oxide 400 mg PO DAILY 12/23/17 06/01/18 pen needle, diabetic 32 gauge x #100 each 01/07/18 02/25/18 5/32 pen needle,diabetic dual safety 30 #100 each 01/07/18 02/25/18 gauge x /16 insulin glargine [Basaglar KwikPen 30 unit SUBCUT DAILY 06/01/18 06/01/18 U-100 Insulin] Previous Rx's Medication Instructions Recorded potassium chloride ER 10 mEq 10 meq PO DAILY #30 cap 02/27/18 capsule,extended release cholecalciferol (vitamin D3) 1,000 1,000 unit PO DAILY #90 cap 03/04/18 unit capsule furosemide 20 mg tablet 20 mg PO DAILY #30 tab 03/17/18 phenytoin sodium extended 100 mg See Label Instructions PO .COMPLEX 04/24/18 capsule #60 cap folic acid 400 mcg tablet 0.4 mg PO QPM #90 tab 05/05/18 oxycodone-acetaminophen 5 mg-325 1 tab PO BEDTIME PRN #30 tab 05/15/18 mg tablet nystatin 100,000 unit/gram topical 1 applictn TOP DAILY #30 gram 05/23/18 powder Fish Oil #90 each 05/29/18 acetaminophen 325 mg tablet 650 mg PO Q4H PRN #90 tab 05/29/18 dexamethasone 2 mg tablet 2 mg PO BID #90 tab 05/29/18 glipizide 5 mg tablet 5 mg PO BID #60 tab 05/29/18 hydrocortisone 1 % topical cream 1 applictn TOP Q6H PRN #28 gram 05/29/18 insulin glargine (U-100) 100 30 unit SUBCUT DAILY #3 ml 05/29/18 unit/mL (3 mL) subcutaneous pen melatonin 3 mg tablet 6 mg PO BEDTIME #90 tab 05/29/18 metformin 1,000 mg tablet 1,000 mg PO BID #90 tab 05/29/18 midodrine 5 mg tablet 5 mg PO TID #90 tab 05/29/18 omeprazole 20 mg capsule,delayed 20 mg PO BID #90 cap 05/29/18 release ondansetron HCl 4 mg tablet 4 mg PO Q6H PRN #30 tab 05/29/18 simvastatin 20 mg tablet 20 mg PO QPM #90 tab 05/29/18 tolterodine ER 4 mg 4 mg PO DAILY #90 cap 05/29/18 capsule,extended release 24 hr azithromycin 250 mg PO DAILY 4 Days #4 tab 06/01/18 loratadine [Claritin] 10 mg PO DAILY #30 tab 06/01/18 Allergies Allergy/AdvReac Type Severity Reaction Status Date / Time adhesive tape Allergy Unknown Verified 06/01/18 06:57 escitalopram Allergy Unknown Verified 06/01/18 06:57 lamotrigine Allergy Unknown Verified 06/01/18 06:57 levetiracetam Allergy Unknown Verified 06/01/18 06:57 Penicillins Allergy Unknown Verified 06/01/18 06:57 silicone Allergy Unknown Verified 06/01/18 06:57 zonisamide Allergy Unknown Verified 06/01/18 06:57 Review of Systems <Chuy Gasca MD - Last Filed: 06/01/18 19:32> Review of Systems ROS Unobtainable: All systems reviewed & are unremarkable except as noted in HPI and below Constitutional Reports chills, Denies fever(s), Reports lethargy and Denies weakness Eyes Denies change in vision, Denies eye discharge and Denies irritation ENT Ears, Nose, Mouth, and Throat: Denies change in voice, Denies otalgia, Denies neck pain, Reports sore throat and Reports other (Hoarseness) Cardiovascular Reports chest pain (With cough), Denies diaphoresis, Denies syncope, Denies rapid heart rate, Denies pedal edema and Denies dyspnea on exertion Respiratory Denies change in phlegm color, Denies cough, Denies dyspnea on exertion and Denies wheezing Gastrointestinal Gastrointestinal: Reports abdominal pain (Epigastric abdominal pain with cough), Denies change in bowel habits, Denies diarrhea, Denies nausea and Denies vomiting Musculoskeletal Denies back pain and Denies neck pain Integumentary/Breasts Denies pruritus, Denies erythema, Denies rash and Denies wounds Neurologic Denies confusion, Denies syncope and Denies weakness Psychiatric Denies anxiety, Denies confusion and Denies depression Allergic/Immunologic Denies wheezing Exam <Chuy Gasca MD - Last Filed: 06/01/18 19:32> Initial Vital Signs Initial Vital Signs: Vital Signs Temperature 98.2 F 06/01/18 05:55 Pulse Rate 73 06/01/18 05:55 Respiratory Rate 20 06/01/18 05:55 Blood Pressure 158/84 H 06/01/18 05:55 Pulse Oximetry 94 06/01/18 05:55 Const General: well developed Nutritional Appearance: well nourished Orientation: alert, awake, oriented x3 and not confused [facility] Head: normocephalic and atraumatic Nose: external nose normal and No nasal discharge Face and sinus: sinuses nontender, face symmetric and no sinus tenderness Mouth: lip normal, moist mucous membranes and other (Oral pharyngeal erythema without exudate.) Teeth and gingiva: dentition normal Throat: tonsils normal and uvula midline Neck Neck: full ROM, supple, No lymphadenopathy and No JVD Chest Chest: tenderness (We will do so with palpation over the lower sternum. This is consistent with her complaint during the history) Resp Effort & Inspection: normal respiratory effort, able to speak in complete sentences, no respiratory distress and no use of accessory muscles Auscultation: rales (Diffuse bilaterally), rhonchi (Diffuse bilaterally.) and no wheezes Cardio Rate: regular rate Rhythm: regular rhythm Heart Sounds: no click, no gallops, no murmurs and no rubs Pulses: normal peripheral pulses GI Inspection: non-distended Palpation: soft, no hepatosplenomegaly and tender (Mildly tender across the upper abdomen. No guarding or rebound.) Auscultation: normal bowel sounds Back/Spine/Pelvis Back: No CVA tenderness Skin General: no rashes or lesions noted, No jaundice and No petechiae Neuro General: alert, oriented x3, gait normal and no focal motor deficits Speech: speech normal Extrem General: full ROM, no clubbing, cyanosis or edema, no pedal edema, no calf tenderness and No calf tenderness <Jose Daniel Greco DO - Last Filed: 06/01/18 08:42> Initial Vital Signs Initial Vital Signs: Vital Signs Temperature 98.2 F 06/01/18 05:55 Pulse Rate 73 06/01/18 05:55 Respiratory Rate 20 06/01/18 05:55 Blood Pressure 158/84 H 06/01/18 05:55 Pulse Oximetry 94 06/01/18 05:55 Course <Chuy Gasca MD - Last Filed: 06/01/18 19:32> Course Narrative: Following the DuoNeb she has residual left lower lung rales. Chest x-ray is suggestive of a small infiltrate. Additional lab workup was pending. Orders Ordered: Discontinued Medications Albuterol/Ipratropium (Duoneb) 3 ml INH NOW ONE Stop: 06/01/18 06:13 Last Admin: 06/01/18 06:18 Dose: 3 ml Albuterol/Ipratropium (Duoneb) 3 ml INH NOW ONE Stop: 06/01/18 07:33 Last Admin: 06/01/18 07:55 Dose: 3 ml Azithromycin (Zithromax) 500 mg PO NOW ONE Stop: 06/01/18 08:38 Last Admin: 06/01/18 08:55 Dose: 500 mg Sodium Chloride (Normal Saline 0.9%) 1,000 mls @ 150 mls/hr IV CONT VERONICA Last Infusion: 06/01/18 08:54 Dose: 0 mls/hr Admin: 06/01/18 08:16 Dose: 150 mls/hr Vital Signs - 8 hr 06/01/18 05:55 06/01/18 06:19 06/01/18 07:56 Temperature 98.2 F Pulse Rate 73 74 91 H Respiratory Rate 20 20 20 Blood Pressure 158/84 H Pulse Oximetry 94 96 94 <DO Joshua Flores Last Filed: 06/01/18 08:42> Orders Ordered: Discontinued Medications Albuterol/Ipratropium (Duoneb) 3 ml INH NOW ONE Stop: 06/01/18 06:13 Last Admin: 06/01/18 06:18 Dose: 3 ml Albuterol/Ipratropium (Duoneb) 3 ml INH NOW ONE Stop: 06/01/18 07:33 Last Admin: 06/01/18 07:55 Dose: 3 ml Azithromycin (Zithromax) 500 mg PO NOW ONE Stop: 06/01/18 08:38 Last Admin: 06/01/18 08:55 Dose: 500 mg Sodium Chloride (Normal Saline 0.9%) 1,000 mls @ 150 mls/hr IV CONT VERONICA Last Infusion: 06/01/18 08:54 Dose: 0 mls/hr Admin: 06/01/18 08:16 Dose: 150 mls/hr Vital Signs - 8 hr 06/01/18 05:55 06/01/18 06:19 06/01/18 07:56 Temperature 98.2 F Pulse Rate 73 74 91 H Respiratory Rate 20 20 20 Blood Pressure 158/84 H Pulse Oximetry 94 96 94 MDM - URI/Sore Throat <Chuy Gasca MD - Last Filed: 06/01/18 19:32> Medical Records Attestation: I reviewed the patient's medical records. Lab Data Attestation: I reviewed the patient's lab results. Result diagrams: 06/01/18 07:00 06/01/18 07:00 Lab Results 06/01/18 06/01/18 06/01/18 Range/Units 07:00 07:00 07:00 WBC 10.7 (4.5-11.0) X10^3/uL RBC 4.29 (4.0-5.2) X10^6/uL Hgb 14.4 (12.0-16.0) g/dL Hct 42.0 (36-46) % MCV 97.8 (80-100) fL MCH 33.5 (26-34) PG MCHC 34.2 (30-36) % RDW 14.3 (11.6-14.8) % Plt Count 180 (150-400) X10^3/uL Neut % (Auto) 65.5 (50-75) % Lymph % (Auto) 25.8 (25-40) % Schley % (Auto) 7.9 (3-14) % Eos % (Auto) 0.1 L (2-4) % Baso % (Auto) 0.7 (0-2) % Neut # (Auto) 7000 (5813-0515) /uL Lymph # (Auto) 2800 (8827-2979) /uL Schley # (Auto) 800 (0-900) /uL Eos # (Auto) 0 (0-450) /uL Baso # (Auto) 100 (0-100) /uL Sodium 138 (137-145) mmol/L Potassium 3.9 (3.4-5.1) mmol/L Chloride 101 (98-107) mmol/L Carbon Dioxide 27 (22-32) mmol/L BUN 21 H (7-17) mg/dL Creatinine 0.80 (0.52-1.04) mg/dL Estimated GFR > 60.0 (>60) mL/min BUN/Creatinine Ratio 26.3 H (6-22) Glucose 288 H (70-100) mg/dL Lactate 2.3 H (0.7-2.1) mmol/L Calcium 9.8 (8.4-10.2) mg/dL Total Creatine Kinase 60 (30-135) U/L CK-MB (CK-2) TNP CK-MB (CK-2) Rel Index TNP Troponin I < 0.012 (0.01-0.034) ng/mL Procalcitonin (<0.5) ng/mL Influenza A & B (PCR) (Negative) 06/01/18 06/01/18 Range/Units 07:00 07:06 WBC (4.5-11.0) X10^3/uL RBC (4.0-5.2) X10^6/uL Hgb (12.0-16.0) g/dL Hct (36-46) % MCV (80-100) fL MCH (26-34) PG MCHC (30-36) % RDW (11.6-14.8) % Plt Count (150-400) X10^3/uL Neut % (Auto) (50-75) % Lymph % (Auto) (25-40) % Schley % (Auto) (3-14) % Eos % (Auto) (2-4) % Baso % (Auto) (0-2) % Neut # (Auto) (0229-3876) /uL Lymph # (Auto) (4140-9183) /uL Schley # (Auto) (0-900) /uL Eos # (Auto) (0-450) /uL Baso # (Auto) (0-100) /uL Sodium (137-145) mmol/L Potassium (3.4-5.1) mmol/L Chloride (98-107) mmol/L Carbon Dioxide (22-32) mmol/L BUN (7-17) mg/dL Creatinine (0.52-1.04) mg/dL Estimated GFR (>60) mL/min BUN/Creatinine Ratio (6-22) Glucose (70-100) mg/dL Lactate (0.7-2.1) mmol/L Calcium (8.4-10.2) mg/dL Total Creatine Kinase (30-135) U/L CK-MB (CK-2) CK-MB (CK-2) Rel Index Troponin I (0.01-0.034) ng/mL Procalcitonin 0.13 (<0.5) ng/mL Influenza A & B (PCR) Negative (Negative) Point of Care Testing Rapid Strep A Negative Imaging Data Chest x-ray: My impression: Left lower lobe infiltrate. ECG Data Attestation: I personally reviewed and interpreted this ECG as follows: (Normal sinus rhythm rate [address] or T-wave changes. No ectopy.) <Jose Daniel Greco DO - Last Filed: 06/01/18 08:42> Lab Data Attestation: I reviewed the patient's lab results. Lab Results 06/01/18 06/01/18 06/01/18 Range/Units 07:00 07:00 07:00 WBC 10.7 (4.5-11.0) X10^3/uL RBC 4.29 (4.0-5.2) X10^6/uL Hgb 14.4 (12.0-16.0) g/dL Hct 42.0 (36-46) % MCV 97.8 (80-100) fL MCH 33.5 (26-34) PG MCHC 34.2 (30-36) % RDW 14.3 (11.6-14.8) % Plt Count 180 (150-400) X10^3/uL Neut % (Auto) 65.5 (50-75) % Lymph % (Auto) 25.8 (25-40) % Schley % (Auto) 7.9 (3-14) % Eos % (Auto) 0.1 L (2-4) % Baso % (Auto) 0.7 (0-2) % Neut # (Auto) 7000 (0724-6820) /uL Lymph # (Auto) 2800 (4052-2392) /uL Schley # (Auto) 800 (0-900) /uL Eos # (Auto) 0 (0-450) /uL Baso # (Auto) 100 (0-100) /uL Sodium 138 (137-145) mmol/L Potassium 3.9 (3.4-5.1) mmol/L Chloride 101 (98-107) mmol/L Carbon Dioxide 27 (22-32) mmol/L BUN 21 H (7-17) mg/dL Creatinine 0.80 (0.52-1.04) mg/dL Estimated GFR > 60.0 (>60) mL/min BUN/Creatinine Ratio 26.3 H (6-22) Glucose 288 H (70-100) mg/dL Lactate 2.3 H (0.7-2.1) mmol/L Calcium 9.8 (8.4-10.2) mg/dL Total Creatine Kinase 60 (30-135) U/L CK-MB (CK-2) TNP CK-MB (CK-2) Rel Index TNP Troponin I < 0.012 (0.01-0.034) ng/mL Procalcitonin (<0.5) ng/mL Influenza A & B (PCR) (Negative) 06/01/18 06/01/18 Range/Units 07:00 07:06 WBC (4.5-11.0) X10^3/uL RBC (4.0-5.2) X10^6/uL Hgb (12.0-16.0) g/dL Hct (36-46) % MCV (80-100) fL MCH (26-34) PG MCHC (30-36) % RDW (11.6-14.8) % Plt Count (150-400) X10^3/uL Neut % (Auto) (50-75) % Lymph % (Auto) (25-40) % Schley % (Auto) (3-14) % Eos % (Auto) (2-4) % Baso % (Auto) (0-2) % Neut # (Auto) (4635-2356) /uL Lymph # (Auto) (2911-6036) /uL Schley # (Auto) (0-900) /uL Eos # (Auto) (0-450) /uL Baso # (Auto) (0-100) /uL Sodium (137-145) mmol/L Potassium (3.4-5.1) mmol/L Chloride (98-107) mmol/L Carbon Dioxide (22-32) mmol/L BUN (7-17) mg/dL Creatinine (0.52-1.04) mg/dL Estimated GFR (>60) mL/min BUN/Creatinine Ratio (6-22) Glucose (70-100) mg/dL Lactate (0.7-2.1) mmol/L Calcium (8.4-10.2) mg/dL Total Creatine Kinase (30-135) U/L CK-MB (CK-2) CK-MB (CK-2) Rel Index Troponin I (0.01-0.034) ng/mL Procalcitonin 0.13 (<0.5) ng/mL Influenza A & B (PCR) Negative (Negative) Point of Care Testing Rapid Strep A Negative Imaging Data Chest x-ray: Radiologist's impression: [address] [address] XRay Report Signed Patient: Breana Claudio JMR#: [id number] : [id number]:[id number] Age/Sex: 58 / FDate of Service: 06/01/18 Loc: ED Accession Number: [id number] Procedure: XR chest 1V Ordering Provider: Chuy Gasca M.D. PROCEDURE: XR CHEST 1V INDICATIONS: Dyspnea. Cough TECHNIQUE: One view of the chest was acquired. COMPARISON: [facility], , XR CHEST 1V, 12/23/2017, 11:26. FINDINGS: Surgical changes and devices: None. Lungs and pleura: The lung volumes are small consistent with shallow inspiration. No pleural effusions or pneumothorax. Lungs are clear. Mediastinum: Mediastinal contours appear normal. Heart size is normal. Bones and chest wall: No suspicious bony lesions. Overlying soft tissues appear unremarkable. IMPRESSION: No acute cardiopulmonary disease. Dictated by: Mike Zamora M.D. on 06/01/2018 at 8:10 MDM Narrative Medical decision making narrative: Received turned over from day provider. Perform my own history and physical exam. Reviewed patient's labs. She does not have an elevated white blood cell count. Lactate is 2.1 however not tachycardic, not tachypneic, not hypoxic, not hypotensive, procalcitonin is negative. Chest x-ray shows no signs of pneumonia. She was given a 2nd DuoNeb for slight wheezing in the left upper lung field which did not improve much worse symptoms. Patient was afebrile. She does describe sinus congestion and postnasal drip. I feel that much of her symptoms are related to an upper respiratory infection. Given the fact that she is a resident at a care facility I feel that being more cautious and treating her with azithromycin is warranted. Do not feel like she needs treated for healthcare associated pneumonia given her labs and physical exam today. Patient was given the 1st dose of her antibiotics here in the emergency department. She was given return precautions. She expressed understanding and agreement with plan. Discharge Plan Departure Patient Disposition: Home Clinical Impression: Upper respiratory infection Discharge Date/Time: 06/01/18 09:12 Interventions: ED Discharge Assessment Last Done: 06/01/18 09:09 Instructions: DI for Viral Upper Respiratory Infection -- Adult Activity Restrictions/Additional Instructions: Recommend you take the antibiotics as directed. I also recommend you take the decongestants as directed. Contact your primary care doctor for a follow-up. Return to the emergency department for any new or worsening symptoms Prescriptions: New azithromycin 250 mg tablet 250 mg PO DAILY 4 Days Qty: 4 RF: 0 loratadine [Claritin] 10 mg tablet 10 mg PO DAILY Qty: 30 RF: 0 No Action cholecalciferol (vitamin D3) 1,000 unit capsule 1,000 unit PO DAILY Qty: 90 RF: 3 furosemide 20 mg tablet 20 mg PO DAILY Qty: 30 RF: 3 phenytoin sodium extended 100 mg capsule See Patient Comments PO .COMPLEX Qty: 60 RF: 3 folic acid 400 mcg tablet 0.4 mg PO QPM Qty: 90 RF: 0 oxycodone-acetaminophen 5-325 mg tablet 1 tab PO BEDTIME PRN (Reason: moderate pain/discomfort) Qty: 30 RF: 0 nystatin 100,000 unit/gram powder 1 applictn TOP DAILY Qty: 30 RF: 3 glipizide 5 mg tablet 5 mg PO BID Qty: 60 RF: 3 Fish Oil .ROUTE .MEDSUPPLY Qty: 90 RF: 0 melatonin 3 mg tablet 6 mg PO BEDTIME Qty: 90 RF: 0 simvastatin 20 mg tablet 20 mg PO QPM Qty: 90 RF: 0 tolterodine 4 mg capsule,extended release 24hr 4 mg PO DAILY Qty: 90 RF: 0 dexamethasone 2 mg tablet 2 mg PO BID Qty: 90 RF: 0 omeprazole 20 mg capsule,delayed release(DR/EC) 20 mg PO BID Qty: 90 RF: 0 midodrine 5 mg tablet 5 mg PO TID Qty: 90 RF: 0 acetaminophen 325 mg tablet 650 mg PO Q4H PRN (Reason: Fever Or Pain) Qty: 90 RF: 0 hydrocortisone [Anti-Itch (HC)] 1 % cream 1 applictn TOP Q6H PRN (Reason: rash) Qty: 28 RF: 0 ondansetron HCl 4 mg tablet 4 mg PO Q6H PRN (Reason: Nausea And Vomiting) Qty: 30 RF: 0 insulin glargine [Basaglar KwikPen U-100 Insulin] 100 unit/mL (3 mL) insulin pen 30 unit SUBCUT DAILY Qty: 3 RF: 3 metformin 1,000 mg tablet 1,000 mg PO BID Qty: 90 RF: 3 pen needle, diabetic 32 gauge x 5/32 needle .ROUTE .MEDSUPPLY 30 Days Qty: 100 RF: 0 pen needle,diabetic dual safty 30 gauge x 3/16 needle .ROUTE .MEDSUPPLY 25 Days Qty: 100 RF: 0 potassium chloride 10 mEq capsule, extended release 10 meq PO DAILY Qty: 30 RF: 0 aspirin 81 mg Tablet,Delayed Release (Dr/Ec) 81 mg PO DAILY RF: 0 citalopram 20 mg tablet 20 mg PO DAILY RF: 0 magnesium oxide 400 mg Tablet 400 mg PO DAILY RF: 0 ibuprofen 400 mg Tablet 400 mg PO BID RF: 0 insulin glargine [Basaglar KwikPen U-100 Insulin] 100 unit/mL (3 mL) Insulin Pen 30 unit SUBCUT DAILY RF: 0 ED Cosign/Signout <Chuy Gasca MD - Last Filed: 06/01/18 19:32> Sign Out Provider Sign Out Attestation: Clinically the patient has a LLL pneumonia. Ongoing testing splinted. Follow-up by Dr. Greco
[2018-06-01] MEDS: ALBUTEROL/IPRATROPIUM 3 ML AMPUL INH ×2 (06:18→07:55)
[2018-06-01 06:19] VITALS: PULSE 74; RESP 20; O2SAT 96
--- NOTE | 2018-06-01 06:19 | ED_ITS ---
HPI - URI/Sore Throat <Chuy Gasca MD - Last Filed: 06/01/18 19:32> General Chief Complaint: Upper Respiratory Symptoms Stated Complaint: Sore throat/cough/fever Time Seen by Provider: 06/01/18 06:06 Source: patient Mode of arrival: EMS Limitations: no limitations History of Present Illness HPI Narrative: The patient has multiple significant illnesses. She currently resides in the facility [facility] to the hospital, a nursing care facility. She has been coughing for about 5 days. She complains sore throat and hoarseness. She has frequent cough. She complains of upper abdominal chest pain and lower sternal chest discomfort. The pain is exacerbated by coughing. She has no obvious cardiac disease. She states she has been around others with similar illness. She is a nonsmoker. She does not have CHF. She denies asthma. Related Data Home Medications Medication Instructions Recorded Confirmed aspirin 81 mg PO DAILY 12/23/17 06/01/18 citalopram 20 mg PO DAILY 12/23/17 06/01/18 ibuprofen 400 mg PO BID 12/23/17 06/01/18 magnesium oxide 400 mg PO DAILY 12/23/17 06/01/18 pen needle, diabetic 32 gauge x #100 each 01/07/18 02/25/18 5/32 pen needle,diabetic dual safety 30 #100 each 01/07/18 02/25/18 gauge x /16 insulin glargine [Basaglar KwikPen 30 unit SUBCUT DAILY 06/01/18 06/01/18 U-100 Insulin] Previous Rx's Medication Instructions Recorded potassium chloride ER 10 mEq 10 meq PO DAILY #30 cap 02/27/18 capsule,extended release cholecalciferol (vitamin D3) 1,000 1,000 unit PO DAILY #90 cap 03/04/18 unit capsule furosemide 20 mg tablet 20 mg PO DAILY #30 tab 03/17/18 phenytoin sodium extended 100 mg See Label Instructions PO .COMPLEX 04/24/18 capsule #60 cap folic acid 400 mcg tablet 0.4 mg PO QPM #90 tab 05/05/18 oxycodone-acetaminophen 5 mg-325 1 tab PO BEDTIME PRN #30 tab 05/15/18 mg tablet nystatin 100,000 unit/gram topical 1 applictn TOP DAILY #30 gram 05/23/18 powder Fish Oil #90 each 05/29/18 acetaminophen 325 mg tablet 650 mg PO Q4H PRN #90 tab 05/29/18 dexamethasone 2 mg tablet 2 mg PO BID #90 tab 05/29/18 glipizide 5 mg tablet 5 mg PO BID #60 tab 05/29/18 hydrocortisone 1 % topical cream 1 applictn TOP Q6H PRN #28 gram 05/29/18 insulin glargine (U-100) 100 30 unit SUBCUT DAILY #3 ml 05/29/18 unit/mL (3 mL) subcutaneous pen melatonin 3 mg tablet 6 mg PO BEDTIME #90 tab 05/29/18 metformin 1,000 mg tablet 1,000 mg PO BID #90 tab 05/29/18 midodrine 5 mg tablet 5 mg PO TID #90 tab 05/29/18 omeprazole 20 mg capsule,delayed 20 mg PO BID #90 cap 05/29/18 release ondansetron HCl 4 mg tablet 4 mg PO Q6H PRN #30 tab 05/29/18 simvastatin 20 mg tablet 20 mg PO QPM #90 tab 05/29/18 tolterodine ER 4 mg 4 mg PO DAILY #90 cap 05/29/18 capsule,extended release 24 hr azithromycin 250 mg PO DAILY 4 Days #4 tab 06/01/18 loratadine [Claritin] 10 mg PO DAILY #30 tab 06/01/18 Allergies Allergy/AdvReac Type Severity Reaction Status Date / Time adhesive tape Allergy Unknown Verified 06/01/18 06:57 escitalopram Allergy Unknown Verified 06/01/18 06:57 lamotrigine Allergy Unknown Verified 06/01/18 06:57 levetiracetam Allergy Unknown Verified 06/01/18 06:57 Penicillins Allergy Unknown Verified 06/01/18 06:57 silicone Allergy Unknown Verified 06/01/18 06:57 zonisamide Allergy Unknown Verified 06/01/18 06:57 Review of Systems <Chuy Gasca MD - Last Filed: 06/01/18 19:32> Review of Systems ROS Unobtainable: All systems reviewed & are unremarkable except as noted in HPI and below Constitutional Reports chills, Denies fever(s), Reports lethargy and Denies weakness Eyes Denies change in vision, Denies eye discharge and Denies irritation ENT Ears, Nose, Mouth, and Throat: Denies change in voice, Denies otalgia, Denies neck pain, Reports sore throat and Reports other (Hoarseness) Cardiovascular Reports chest pain (With cough), Denies diaphoresis, Denies syncope, Denies rapid heart rate, Denies pedal edema and Denies dyspnea on exertion Respiratory Denies change in phlegm color, Denies cough, Denies dyspnea on exertion and Denies wheezing Gastrointestinal Gastrointestinal: Reports abdominal pain (Epigastric abdominal pain with cough) , Denies change in bowel habits, Denies diarrhea, Denies nausea and Denies vomiting Musculoskeletal Denies back pain and Denies neck pain Integumentary/Breasts Denies pruritus, Denies erythema, Denies rash and Denies wounds Neurologic Denies confusion, Denies syncope and Denies weakness Psychiatric Denies anxiety, Denies confusion and Denies depression Allergic/Immunologic Denies wheezing Exam <Chuy Gasca MD - Last Filed: 06/01/18 19:32> Initial Vital Signs Initial Vital Signs: Vital Signs Temperature 98.2 F 06/01/18 05:55 Pulse Rate 73 06/01/18 05:55 Respiratory Rate 20 06/01/18 05:55 Blood Pressure 158/84 H 06/01/18 05:55 Pulse Oximetry 94 06/01/18 05:55 Const General: well developed Nutritional Appearance: well nourished Orientation: alert, awake, oriented x3 and not confused [facility] Head: normocephalic and atraumatic Nose: external nose normal and No nasal discharge Face and sinus: sinuses nontender, face symmetric and no sinus tenderness Mouth: lip normal, moist mucous membranes and other (Oral pharyngeal erythema without exudate.) Teeth and gingiva: dentition normal Throat: tonsils normal and uvula midline Neck Neck: full ROM, supple, No lymphadenopathy and No JVD Chest Chest: tenderness (We will do so with palpation over the lower sternum. This is consistent with her complaint during the history) Resp Effort & Inspection: normal respiratory effort, able to speak in complete sentences, no respiratory distress and no use of accessory muscles Auscultation: rales (Diffuse bilaterally), rhonchi (Diffuse bilaterally.) and no wheezes Cardio Rate: regular rate Rhythm: regular rhythm Heart Sounds: no click, no gallops, no murmurs and no rubs Pulses: normal peripheral pulses GI Inspection: non-distended Palpation: soft, no hepatosplenomegaly and tender (Mildly tender across the upper abdomen. No guarding or rebound.) Auscultation: normal bowel sounds Back/Spine/Pelvis Back: No CVA tenderness Skin General: no rashes or lesions noted, No jaundice and No petechiae Neuro General: alert, oriented x3, gait normal and no focal motor deficits Speech: speech normal Extrem General: full ROM, no clubbing, cyanosis or edema, no pedal edema, no calf tenderness and No calf tenderness <Jose Daniel Greco DO - Last Filed: 06/01/18 08:42> Initial Vital Signs Initial Vital Signs: Vital Signs Temperature 98.2 F 06/01/18 05:55 Pulse Rate 73 06/01/18 05:55 Respiratory Rate 20 06/01/18 05:55 Blood Pressure 158/84 H 06/01/18 05:55 Pulse Oximetry 94 06/01/18 05:55 Course <Chuy Gasca MD - Last Filed: 06/01/18 19:32> Course Narrative: Following the DuoNeb she has residual left lower lung rales. Chest x-ray is suggestive of a small infiltrate. Additional lab workup was pending. Orders Ordered: Discontinued Medications Albuterol/Ipratropium (Duoneb) 3 ml INH NOW ONE Stop: 06/01/18 06:13 Last Admin: 06/01/18 06:18 Dose: 3 ml Albuterol/Ipratropium (Duoneb) 3 ml INH NOW ONE Stop: 06/01/18 07:33 Last Admin: 06/01/18 07:55 Dose: 3 ml Azithromycin (Zithromax) 500 mg PO NOW ONE Stop: 06/01/18 08:38 Last Admin: 06/01/18 08:55 Dose: 500 mg Sodium Chloride (Normal Saline 0.9%) 1,000 mls @ 150 mls/hr IV CONT VERONICA Last Infusion: 06/01/18 08:54 Dose: 0 mls/hr Admin: 06/01/18 08:16 Dose: 150 mls/hr Vital Signs - 8 hr 06/01/18 05:55 06/01/18 06:19 06/01/18 07:56 Temperature 98.2 F Pulse Rate 73 74 91 H Respiratory Rate 20 20 20 Blood Pressure 158/84 H Pulse Oximetry 94 96 94 <DO Joshua Flores Last Filed: 06/01/18 08:42> Orders Ordered: Discontinued Medications Albuterol/Ipratropium (Duoneb) 3 ml INH NOW ONE Stop: 06/01/18 06:13 Last Admin: 06/01/18 06:18 Dose: 3 ml Albuterol/Ipratropium (Duoneb) 3 ml INH NOW ONE Stop: 06/01/18 07:33 Last Admin: 06/01/18 07:55 Dose: 3 ml Azithromycin (Zithromax) 500 mg PO NOW ONE Stop: 06/01/18 08:38 Last Admin: 06/01/18 08:55 Dose: 500 mg Sodium Chloride (Normal Saline 0.9%) 1,000 mls @ 150 mls/hr IV CONT VERONICA Last Infusion: 06/01/18 08:54 Dose: 0 mls/hr Admin: 06/01/18 08:16 Dose: 150 mls/hr Vital Signs - 8 hr 06/01/18 05:55 06/01/18 06:19 06/01/18 07:56 Temperature 98.2 F Pulse Rate 73 74 91 H Respiratory Rate 20 20 20 Blood Pressure 158/84 H Pulse Oximetry 94 96 94 MDM - URI/Sore Throat <Chuy Gasca MD - Last Filed: 06/01/18 19:32> Medical Records Attestation: I reviewed the patient's medical records. Lab Data Attestation: I reviewed the patient's lab results. Result diagrams: 06/01/18 07:00 06/01/18 07:00 Lab Results 06/01/18 06/01/18 06/01/18 Range/Units 07:00 07:00 07:00 WBC 10.7 (4.5-11.0) X10^3/uL RBC 4.29 (4.0-5.2) X10^6/uL Hgb 14.4 (12.0-16.0) g/dL Hct 42.0 (36-46) % MCV 97.8 (80-100) fL MCH 33.5 (26-34) PG MCHC 34.2 (30-36) % RDW 14.3 (11.6-14.8) % Plt Count 180 (150-400) X10^3/uL Neut % (Auto) 65.5 (50-75) % Lymph % (Auto) 25.8 (25-40) % [place] % (Auto) 7.9 (3-14) % Eos % (Auto) 0.1 L (2-4) % Baso % (Auto) 0.7 (0-2) % Neut # (Auto) 7000 (8710-7876) /uL Lymph # (Auto) 2800 (0514-4379) /uL [place] # (Auto) 800 (0-900) /uL Eos # (Auto) 0 (0-450) /uL Baso # (Auto) 100 (0-100) /uL Sodium 138 (137-145) mmol/L Potassium 3.9 (3.4-5.1) mmol/L Chloride 101 (98-107) mmol/L Carbon Dioxide 27 (22-32) mmol/L BUN 21 H (7-17) mg/dL Creatinine 0.80 (0.52-1.04) mg/dL Estimated GFR > 60.0 (>60) mL/min BUN/Creatinine Ratio 26.3 H (6-22) Glucose 288 H (70-100) mg/dL Lactate 2.3 H (0.7-2.1) mmol/L Calcium 9.8 (8.4-10.2) mg/dL Total Creatine Kinase 60 (30-135) U/L CK-MB (CK-2) TNP CK-MB (CK-2) Rel Index TNP Troponin I < 0.012 (0.01-0.034) ng/mL Procalcitonin (<0.5) ng/mL Influenza A & B (PCR) (Negative) 06/01/18 06/01/18 Range/Units 07:00 07:06 WBC (4.5-11.0) X10^3/uL RBC (4.0-5.2) X10^6/uL Hgb (12.0-16.0) g/dL Hct (36-46) % MCV (80-100) fL MCH (26-34) PG MCHC (30-36) % RDW (11.6-14.8) % Plt Count (150-400) X10^3/uL Neut % (Auto) (50-75) % Lymph % (Auto) (25-40) % [place] % (Auto) (3-14) % Eos % (Auto) (2-4) % Baso % (Auto) (0-2) % Neut # (Auto) (1689-6953) /uL Lymph # (Auto) (9133-3462) /uL [place] # (Auto) (0-900) /uL Eos # (Auto) (0-450) /uL Baso # (Auto) (0-100) /uL Sodium (137-145) mmol/L Potassium (3.4-5.1) mmol/L Chloride (98-107) mmol/L Carbon Dioxide (22-32) mmol/L BUN (7-17) mg/dL Creatinine (0.52-1.04) mg/dL Estimated GFR (>60) mL/min BUN/Creatinine Ratio (6-22) Glucose (70-100) mg/dL Lactate (0.7-2.1) mmol/L Calcium (8.4-10.2) mg/dL Total Creatine Kinase (30-135) U/L CK-MB (CK-2) CK-MB (CK-2) Rel Index Troponin I (0.01-0.034) ng/mL Procalcitonin 0.13 (<0.5) ng/mL Influenza A & B (PCR) Negative (Negative) Point of Care Testing Rapid Strep A Negative Imaging Data Chest x-ray: My impression: Left lower lobe infiltrate. ECG Data Attestation: I personally reviewed and interpreted this ECG as follows: (Normal sinus rhythm rate [address] or T-wave changes. No ectopy.) <Jose Daniel Greco DO - Last Filed: 06/01/18 08:42> Lab Data Attestation: I reviewed the patient's lab results. Lab Results 06/01/18 06/01/18 06/01/18 Range/Units 07:00 07:00 07:00 WBC 10.7 (4.5-11.0) X10^3/uL RBC 4.29 (4.0-5.2) X10^6/uL Hgb 14.4 (12.0-16.0) g/dL Hct 42.0 (36-46) % MCV 97.8 (80-100) fL MCH 33.5 (26-34) PG MCHC 34.2 (30-36) % RDW 14.3 (11.6-14.8) % Plt Count 180 (150-400) X10^3/uL Neut % (Auto) 65.5 (50-75) % Lymph % (Auto) 25.8 (25-40) % [place] % (Auto) 7.9 (3-14) % Eos % (Auto) 0.1 L (2-4) % Baso % (Auto) 0.7 (0-2) % Neut # (Auto) 7000 (6413-1766) /uL Lymph # (Auto) 2800 (6569-8736) /uL [place] # (Auto) 800 (0-900) /uL Eos # (Auto) 0 (0-450) /uL Baso # (Auto) 100 (0-100) /uL Sodium 138 (137-145) mmol/L Potassium 3.9 (3.4-5.1) mmol/L Chloride 101 (98-107) mmol/L Carbon Dioxide 27 (22-32) mmol/L BUN 21 H (7-17) mg/dL Creatinine 0.80 (0.52-1.04) mg/dL Estimated GFR > 60.0 (>60) mL/min BUN/Creatinine Ratio 26.3 H (6-22) Glucose 288 H (70-100) mg/dL Lactate 2.3 H (0.7-2.1) mmol/L Calcium 9.8 (8.4-10.2) mg/dL Total Creatine Kinase 60 (30-135) U/L CK-MB (CK-2) TNP CK-MB (CK-2) Rel Index TNP Troponin I < 0.012 (0.01-0.034) ng/mL Procalcitonin (<0.5) ng/mL Influenza A & B (PCR) (Negative) 06/01/18 06/01/18 Range/Units 07:00 07:06 WBC (4.5-11.0) X10^3/uL RBC (4.0-5.2) X10^6/uL Hgb (12.0-16.0) g/dL Hct (36-46) % MCV (80-100) fL MCH (26-34) PG MCHC (30-36) % RDW (11.6-14.8) % Plt Count (150-400) X10^3/uL Neut % (Auto) (50-75) % Lymph % (Auto) (25-40) % [place] % (Auto) (3-14) % Eos % (Auto) (2-4) % Baso % (Auto) (0-2) % Neut # (Auto) (5222-8135) /uL Lymph # (Auto) (9213-3367) /uL [place] # (Auto) (0-900) /uL Eos # (Auto) (0-450) /uL Baso # (Auto) (0-100) /uL Sodium (137-145) mmol/L Potassium (3.4-5.1) mmol/L Chloride (98-107) mmol/L Carbon Dioxide (22-32) mmol/L BUN (7-17) mg/dL Creatinine (0.52-1.04) mg/dL Estimated GFR (>60) mL/min BUN/Creatinine Ratio (6-22) Glucose (70-100) mg/dL Lactate (0.7-2.1) mmol/L Calcium (8.4-10.2) mg/dL Total Creatine Kinase (30-135) U/L CK-MB (CK-2) CK-MB (CK-2) Rel Index Troponin I (0.01-0.034) ng/mL Procalcitonin 0.13 (<0.5) ng/mL Influenza A & B (PCR) Negative (Negative) Point of Care Testing Rapid Strep A Negative Imaging Data Chest x-ray: Radiologist's impression: [address] [address] XRay Report Signed Patient: Breana Claudio JMR#: [id number] : [id number]:[id number] Age/Sex: 58 / FDate of Service: 06/01/18 Loc: ED Accession Number: [id number] Procedure: XR chest 1V Ordering Provider: Chuy Gasca M.D. PROCEDURE: XR CHEST 1V INDICATIONS: Dyspnea. Cough TECHNIQUE: One view of the chest was acquired. COMPARISON: [facility], , XR CHEST 1V, 12/23/2017, 11:26. FINDINGS: Surgical changes and devices: None. Lungs and pleura: The lung volumes are small consistent with shallow inspiration. No pleural effusions or pneumothorax. Lungs are clear. Mediastinum: Mediastinal contours appear normal. Heart size is normal. Bones and chest wall: No suspicious bony lesions. Overlying soft tissues appear unremarkable. IMPRESSION: No acute cardiopulmonary disease. Dictated by: Mike Zamora M.D. on 06/01/2018 at 8:10 MDM Narrative Medical decision making narrative: Received turned over from day provider. Perform my own history and physical exam. Reviewed patient's labs. She does not have an elevated white blood cell count. Lactate is 2.1 however not tachycardic, not tachypneic, not hypoxic, not hypotensive, procalcitonin is negative. Chest x-ray shows no signs of pneumonia. She was given a 2nd DuoNeb for slight wheezing in the left upper lung field which did not improve much worse symptoms. Patient was afebrile. She does describe sinus congestion and postnasal drip. I feel that much of her symptoms are related to an upper respiratory infection. Given the fact that she is a resident at a care facility I feel that being more cautious and treating her with azithromycin is warranted. Do not feel like she needs treated for healthcare associated pneumonia given her labs and physical exam today. Patient was given the 1st dose of her antibiotics here in the emergency department. She was given return precautions. She expressed understanding and agreement with plan. Discharge Plan Departure Patient Disposition: Home Clinical Impression: Upper respiratory infection Discharge Date/Time: 06/01/18 09:12 Interventions: ED Discharge Assessment Last Done: 06/01/18 09:09 Instructions: DI for Viral Upper Respiratory Infection -- Adult Activity Restrictions/Additional Instructions: Recommend you take the antibiotics as directed. I also recommend you take the decongestants as directed. Contact your primary care doctor for a follow-up. Return to the emergency department for any new or worsening symptoms Prescriptions: New azithromycin 250 mg tablet 250 mg PO DAILY 4 Days Qty: 4 RF: 0 loratadine [Claritin] 10 mg tablet 10 mg PO DAILY Qty: 30 RF: 0 No Action cholecalciferol (vitamin D3) 1,000 unit capsule 1,000 unit PO DAILY Qty: 90 RF: 3 furosemide 20 mg tablet 20 mg PO DAILY Qty: 30 RF: 3 phenytoin sodium extended 100 mg capsule See Patient Comments PO .COMPLEX Qty: 60 RF: 3 folic acid 400 mcg tablet 0.4 mg PO QPM Qty: 90 RF: 0 oxycodone-acetaminophen 5-325 mg tablet 1 tab PO BEDTIME PRN (Reason: moderate pain/discomfort) Qty: 30 RF: 0 nystatin 100,000 unit/gram powder 1 applictn TOP DAILY Qty: 30 RF: 3 glipizide 5 mg tablet 5 mg PO BID Qty: 60 RF: 3 Fish Oil .ROUTE .MEDSUPPLY Qty: 90 RF: 0 melatonin 3 mg tablet 6 mg PO BEDTIME Qty: 90 RF: 0 simvastatin 20 mg tablet 20 mg PO QPM Qty: 90 RF: 0 tolterodine 4 mg capsule,extended release 24hr 4 mg PO DAILY Qty: 90 RF: 0 dexamethasone 2 mg tablet 2 mg PO BID Qty: 90 RF: 0 omeprazole 20 mg capsule,delayed release(DR/EC) 20 mg PO BID Qty: 90 RF: 0 midodrine 5 mg tablet 5 mg PO TID Qty: 90 RF: 0 acetaminophen 325 mg tablet 650 mg PO Q4H PRN (Reason: Fever Or Pain) Qty: 90 RF: 0 hydrocortisone [Anti-Itch (HC)] 1 % cream 1 applictn TOP Q6H PRN (Reason: rash) Qty: 28 RF: 0 ondansetron HCl 4 mg tablet 4 mg PO Q6H PRN (Reason: Nausea And Vomiting) Qty: 30 RF: 0 insulin glargine [Basaglar KwikPen U-100 Insulin] 100 unit/mL (3 mL) insulin pen 30 unit SUBCUT DAILY Qty: 3 RF: 3 metformin 1,000 mg tablet 1,000 mg PO BID Qty: 90 RF: 3 pen needle, diabetic 32 gauge x 5/32 needle .ROUTE .MEDSUPPLY 30 Days Qty: 100 RF: 0 pen needle,diabetic dual safty 30 gauge x 3/16 needle .ROUTE .MEDSUPPLY 25 Days Qty: 100 RF: 0 potassium chloride 10 mEq capsule, extended release 10 meq PO DAILY Qty: 30 RF: 0 aspirin 81 mg Tablet,Delayed Release (Dr/Ec) 81 mg PO DAILY RF: 0 citalopram 20 mg tablet 20 mg PO DAILY RF: 0 magnesium oxide 400 mg Tablet 400 mg PO DAILY RF: 0 ibuprofen 400 mg Tablet 400 mg PO BID RF: 0 insulin glargine [Basaglar KwikPen U-100 Insulin] 100 unit/mL (3 mL) Insulin Pen 30 unit SUBCUT DAILY RF: 0 ED Cosign/Signout <Chuy Gasca MD - Last Filed: 06/01/18 19:32> Sign Out Provider Sign Out Attestation: Clinically the patient has a LLL pneumonia. Ongoing testing splinted. Follow-up by Dr. Greco
[2018-06-01 07:11] LABS: Add Manual Diff / Slide Review NO; Basophils Absolute Auto 100 /uL (0-100); Basophils Percent Auto 0.7 % (0-2); Eosinophils Absolute Auto 0 /uL (0-450); Eosinophils Percent Auto 0.1 % (2-4); Hemoglobin 14.4 g/dL (12.0-16.0); Lymphocytes Absolute Auto 2800 /uL (1100-4500); Lymphocytes Percent Auto 25.8 % (25-40); Mean Corpuscular HGB Conc 34.2 % (30-36); Mean Corpuscular Hemoglobin 33.5 PG (26-34); Mean Corpuscular Volume 97.8 fL (80-100); Monocytes Absolute Auto 800 /uL (0-900); Monocytes Percent Auto 7.9 % (3-14); Neutrophils Absolute Auto 7000 /uL (1500-7000); Neutrophils Percent Auto 65.5 % (50-75); Platelet Count 180 X10^3/uL (150-400); Red Blood Cell Count 4.29 X10^6/uL (4.0-5.2); Red Cell Distribution Width 14.3 % (11.6-14.8); White Blood Cell Count 10.7 X10^3/uL (4.5-11.0)
[2018-06-01 07:22] LABS: BUN Creatinine Ratio 26.3 (6-22); Blood Urea Nitrogen 21 mg/dL (7-17); Calcium 9.8 mg/dL (8.4-10.2); Carbon Dioxide 27 mmol/L (22-32); Chloride 101 mmol/L (98-107); Creatine Kinase 60 U/L (30-135); Estimated Glomerular Filt Rate > 60.0 mL/min (>60); Glucose 288 mg/dL (70-100); HEMOLYSIS < 15 (0-50); Lactate (Lactic Acid) 2.3 mmol/L (0.7-2.1); Potassium 3.9 mmol/L (3.4-5.1); Sodium 138 mmol/L (137-145)
[2018-06-01 07:25] LABS: Influenza A and B by PCR Rapid Negative (Negative)
[2018-06-01 07:36] LABS: Troponin I < 0.012 ng/mL (0.01-0.034)
[2018-06-01 07:56] VITALS: PULSE 91; RESP 20; O2SAT 94
[2018-06-01 08:12] LABS: Procalcitonin 0.13 ng/mL (<0.5)
[2018-06-01] MEDS: SODIUM CHLORIDE 0.9% 1,000 ML 150 ML IV (08:16)
[2018-06-01] MEDS: AZITHROMYCIN 250 MG TABLET 500 MG PO (08:55)
[2018-06-01 09:09] VITALS: BP 151/77; PULSE 98; RESP 20; TEMP 37; O2SAT 99
[2018-06-01 11:06] LABS: Reflexed Lactate in 2 Hours Y
== END 2018-06-01 09:12 | disposition home or self-care (01) ==
PROVIDERS: Emergency Medicine; Emergency Provider Emergency Medicine; PCP Internal Medicine
DX: J06.9 Acute upper respiratory infection, unspecified (principal); R07.9 Chest pain, unspecified
CPT/HCPCS: 36415; 36591; 71045; 80048; 82550; 83605; 84145; 84484; 85025; 87040; 87400; 87880; 93005; 94640; 96360; 99283; 99285

== ENCOUNTER 2018-06-06 18:37 | Emergency (ER) | payer MEDICARE, MEDICAID, SELFPAY ==
--- NOTE | 2018-06-06 18:42 | DI.RAD.S_ITS ---
PROCEDURE: XR CHEST 1V INDICATIONS: chest pain TECHNIQUE: One view of the chest was acquired. COMPARISON: [facility], CR, XR CHEST 1V, 06/01/2018, 6:33. FINDINGS: Surgical changes and devices: None. Lungs and pleura: Lungs are clear. No pleural effusions or pneumothorax. Mediastinum: Mediastinal contours appear normal. Heart size is normal. Bones and chest wall: No suspicious bony lesions. Overlying soft tissues appear unremarkable. IMPRESSION: No acute process. Dictated by: Martha Singleton M.D. on 06/06/2018 at 19:06 Approved by: Martha Singleton M.D. on 06/06/2018 at 19:07
--- NOTE | 2018-06-06 18:44 | DI.CT.S_ITS ---
PROCEDURE: CT HEAD/BRAIN WO CON INDICATIONS: syncope, head injury, hx meningioma TECHNIQUE: Noncontrast 4.5 mm thick angled axial sections acquired from the foramen magnum to the vertex, with coronal and sagittal reformats. For radiation dose reduction, the following was used: automated exposure control, adjustment of mA and/or kV according to patient size. COMPARISON: [facility], MR, MR BRAIN WITH/WITHOUT CONTRAST, 05/20/2018, 11:37. FINDINGS: Image quality: Excellent. CSF spaces: Basal cisterns are patent. No extra-axial fluid collections. Ventricles are normal in size and shape. Brain: No midline shift. No acute intracranial masses or hemorrhage. Bilateral frontal cortical calcifications are present, as before. Left frontal resection cavity is present, as before. Bifrontal hypodensity is present, corresponding to elevated flairs signal on the prior MRI examination. Sainz-white matter interface is normal. Skull and face: Left frontal craniotomy. Calvarium and visualized facial bones are otherwise intact, without suspicious lesions. Sinuses: Bilateral maxillary sinus air-fluid levels. IMPRESSION: 1. Postsurgical sequelae. 2. No acute process. 3. Bilateral maxillary sinus disease. Dictated by: Martha Singleton M.D. on 06/06/2018 at 19:08 Approved by: Martha Singleton M.D. on 06/06/2018 at 19:09
[2018-06-06 18:47] VITALS: BP 129/72; PULSE 95; RESP 15; TEMP 36.6; O2SAT 93
[2018-06-06 19:29] LABS: Add Manual Diff / Slide Review NO; Basophils Absolute Auto 100 /uL (0-100); Basophils Percent Auto 0.6 % (0-2); Eosinophils Absolute Auto 0 /uL (0-450); Eosinophils Percent Auto 0.2 % (2-4); Hematocrit 41.5 % (36-46); Hemoglobin 13.6 g/dL (12.0-16.0); Lymphocytes Absolute Auto 1400 /uL (1100-4500); Lymphocytes Percent Auto 11.2 % (25-40); Mean Corpuscular HGB Conc 32.8 % (30-36); Mean Corpuscular Hemoglobin 32.5 PG (26-34); Mean Corpuscular Volume 99.2 fL (80-100); Monocytes Absolute Auto 800 /uL (0-900); Monocytes Percent Auto 6.2 % (3-14); Neutrophils Absolute Auto 10300 /uL (1500-7000); Neutrophils Percent Auto 81.8 % (50-75); Platelet Count 207 X10^3/uL (150-400); Red Blood Cell Count 4.18 X10^6/uL (4.0-5.2); White Blood Cell Count 12.6 X10^3/uL (4.5-11.0)
--- NOTE | 2018-06-06 19:43 | ED.LOWEXIN ---
HPI - Extremity Injury (Lower) General Chief Complaint: Syncope Stated Complaint: 2 Falls Time Seen by Provider: 06/06/18 18:39 Source: patient and family Mode of arrival: ambulatory Limitations: no limitations History of Present Illness HPI Narrative: 58-year-old female, former smoker and chronically dizzy presents to the emergency department with 2 episodes of lightheadedness upon standing, worse than normal, which made her ease herself to the ground. She denies syncope and has full recall of the events. She denies any injury as a result of the fall. She states she has had some nausea and loose stool but denies any significant vomiting. She has a history of becoming dehydrated per her own report. She denies fever or chills. She denies chest pain or palpitations. She denies abdominal pain. She has had no dysuria, frequency or urgency. Onset (ago): hour(s) Place: home Severity: moderate Relieving factors: immobilization Exacerbating factors: movement Related Data Home Medications Medication Instructions Recorded Confirmed aspirin 81 mg PO DAILY 12/23/17 06/01/18 citalopram 20 mg PO DAILY 12/23/17 06/01/18 ibuprofen 400 mg PO BID 12/23/17 06/01/18 magnesium oxide 400 mg PO DAILY 12/23/17 06/01/18 pen needle, diabetic 32 gauge x #100 each 01/07/18 02/25/18 5/32 pen needle,diabetic dual safety 30 #100 each 01/07/18 02/25/18 gauge x 3/16 insulin glargine [Basaglar KwikPen 30 unit SUBCUT DAILY 06/01/18 06/01/18 U-100 Insulin] Previous Rx's Medication Instructions Recorded potassium chloride ER 10 mEq 10 meq PO DAILY #30 cap 02/27/18 capsule,extended release cholecalciferol (vitamin D3) 1,000 1,000 unit PO DAILY #90 cap 03/04/18 unit capsule furosemide 20 mg tablet 20 mg PO DAILY #30 tab 03/17/18 phenytoin sodium extended 100 mg See Label Instructions PO .COMPLEX 04/24/18 capsule #60 cap folic acid 400 mcg tablet 0.4 mg PO QPM #90 tab 05/05/18 oxycodone-acetaminophen 5 mg-325 1 tab PO BEDTIME PRN #30 tab 05/15/18 mg tablet nystatin 100,000 unit/gram topical 1 applictn TOP DAILY #30 gram 05/23/18 powder Fish Oil #90 each 05/29/18 acetaminophen 325 mg tablet 650 mg PO Q4H PRN #90 tab 05/29/18 dexamethasone 2 mg tablet 2 mg PO BID #90 tab 05/29/18 glipizide 5 mg tablet 5 mg PO BID #60 tab 05/29/18 hydrocortisone 1 % topical cream 1 applictn TOP Q6H PRN #28 gram 05/29/18 melatonin 3 mg tablet 6 mg PO BEDTIME #90 tab 05/29/18 metformin 1,000 mg tablet 1,000 mg PO BID #90 tab 05/29/18 midodrine 5 mg tablet 5 mg PO TID #90 tab 05/29/18 omeprazole 20 mg capsule,delayed 20 mg PO BID #90 cap 05/29/18 release ondansetron HCl 4 mg tablet 4 mg PO Q6H PRN #30 tab 05/29/18 simvastatin 20 mg tablet 20 mg PO QPM #90 tab 05/29/18 tolterodine ER 4 mg 4 mg PO DAILY #90 cap 05/29/18 capsule,extended release 24 hr loratadine [Claritin] 10 mg PO DAILY #30 tab 06/01/18 insulin glargine (U-100) 100 30 unit SUBCUT DAILY #3 ml 06/02/18 unit/mL (3 mL) subcutaneous pen meclizine 25 mg PO BID-TID PRN #10 tab 06/07/18 Allergies Allergy/AdvReac Type Severity Reaction Status Date / Time adhesive tape Allergy Unknown Verified 06/01/18 06:57 escitalopram Allergy Unknown Verified 06/01/18 06:57 lamotrigine Allergy Unknown Verified 06/01/18 06:57 levetiracetam Allergy Unknown Verified 06/01/18 06:57 Penicillins Allergy Unknown Verified 06/01/18 06:57 silicone Allergy Unknown Verified 06/01/18 06:57 zonisamide Allergy Unknown Verified 06/01/18 06:57 Review of Systems Constitutional Denies chills, Denies fever(s), Denies lethargy and Reports weakness Eyes Denies change in vision, Denies eye discharge, Denies irritation and Denies loss of vision ENT Ears, Nose, Mouth, and Throat: Denies change in voice, Reports dizziness, Denies neck pain and Denies sore throat Cardiovascular Denies chest pain, Denies irregular heart rhythm, Denies lightheadedness, Denies palpitations, Denies dyspnea, Denies dyspnea on exertion and Denies orthopnea Respiratory Denies cough, Denies dyspnea, Denies dyspnea on exertion and Denies wheezing Gastrointestinal Gastrointestinal: Denies abdominal pain, Denies change in bowel habits, Denies diarrhea, Denies nausea and Denies vomiting Genitourinary Denies hematuria, Denies flank pain, Denies urinary incontinence and Denies urinary urgency Musculoskeletal Denies neck pain Integumentary/Breasts Denies pruritus, Denies erythema, Denies rash and Denies wounds Neurologic Denies confusion, Reports dizziness, Denies loss of vision and Reports weakness Psychiatric Denies anxiety, Denies confusion, Denies depression, Denies homicidal ideation and Denies suicidal ideation Endocrine Denies palpitations Hematologic/Lymphatic Denies easy bruising Allergic/Immunologic Denies wheezing [facility] Medical History Diabetes mellitus type 2, insulin dependent (Chronic ~2007) Cognitive dysfunction (Chronic) Depression (Chronic) Urinary incontinence (Chronic ~2015) Other and unspecified hyperlipidemia (Chronic) Orthostatic hypotension (Chronic) Seizure disorder (Chronic) GERD without esophagitis (Chronic) Anxiety (Chronic) Hearing loss (Chronic ~2016) Ovarian cyst (Chronic ~1983) Vision disorder (Chronic) Chicken pox (Resolved ~1966) Fractures (Resolved ~2017) Measles (Resolved ~1963) Surgical History Meningioma (Chronic ~2011) Anesthesia (Resolved) History of cholecystectomy (Resolved ~1987) History of hysterectomy (Resolved ~1988) No pertinent past surgical history (Inactive) Family History Father Cancer Diabetes mellitus Hypertension Sister Hypertension Sister Cancer Grandfather Heart disease Grandmother Heart disease Social History marital status: number of children: 3 lives independently: Yes caregiver/support person: Yes housing: assisted living facility pets and animals: No education level: high school occupational status: disabled Previous occupational history: [employer] in [place] [employer]: None leisure activities: games (Bingo) and other (Movies, TV) Smoking Status: Former smoker Tobacco: How many years used: 2 Smokeless tobacco user: other (Cigarettes) quit status: quit date established (2010) second hand exposure: No alcohol intake: never substance use type: does not use Family History Father Cancer Diabetes mellitus Hypertension Sister Hypertension Sister Cancer Grandfather Heart disease Grandmother Heart disease Social History marital status: number of children: 3 lives independently: Yes caregiver/support person: Yes housing: assisted living facility pets and animals: No education level: high school occupational status: disabled Previous occupational history: [employer] in [place] [employer] None leisure activities: games ([employer]) and other (Movies, TV) Smoking Status: Former smoker Tobacco: How many years used: 2 Smokeless tobacco user: other (Cigarettes) quit status: quit date established (2010) second hand exposure: No alcohol intake: never substance use type: does not use Exam Narrative Exam Narrative: GENERAL: 58-year-old female, morbidly obese, in mild distress. HEAD: Atraumatic. Normocephalic. No temporal or scalp tenderness. EYES: Pupils equal round and reactive. Extraocular motions intact. No scleral icterus. No injection or drainage. ENT: Dry membranes. Nose without bleeding, purulent drainage or septal hematoma. Throat without erythema, tonsillar hypertrophy or exudate. Uvula midline. Airway patent. NECK: Trachea midline. No JVD or lymphadenopathy. Supple, nontender, no meningeal signs. CARDIOVASCULAR: Regular rate and rhythm without murmurs, gallops, or rubs. RESPIRATORY: Clear to auscultation. Breath sounds equal bilaterally. No wheezes, rales, or rhonchi. GASTROINTESTINAL: Abdomen soft, non-tender, nondistended. No hepato-splenomegaly, or palpable masses. No guarding. EXTREMITIES: No clubbing, cyanosis, or edema. No joint tenderness, effusion, or edema noted. BACK: Nontender without deformity or crepitance. No flank tenderness. NEURO: AOx3. No problems with finger to nose, or heel to dudley. SKIN: No rash or erythema. Initial Vital Signs Initial Vital Signs: Vital Signs Temperature 97.8 F 06/06/18 18:47 Pulse Rate 95 H 02/01/19 18:47 Respiratory Rate 15 06/06/18 18:47 Blood Pressure 129/72 06/06/18 18:47 Pulse Oximetry 93 06/06/18 18:47 Course Orders Ordered: Discontinued Medications Sodium Chloride (Normal Saline 0.9%) 1,000 mls @ 1,000 mls/hr IV BOLUS ONE Stop: 06/06/18 19:43 Last Infusion: 06/06/18 21:33 Dose: 0 mls/hr Admin: 06/06/18 19:44 Dose: 1,000 mls/hr Sodium Chloride (Normal Saline 0.9%) 1,000 mls @ 1,000 mls/hr IV BOLUS ONE Stop: 06/06/18 20:11 Last Admin: 06/06/18 21:56 Dose: Sodium Chloride (Normal Saline 0.9%) 1,000 mls @ 1,000 mls/hr IV BOLUS ONE Stop: 06/06/18 22:47 Last Infusion: 06/06/18 23:04 Dose: 0 mls/hr Admin: 06/06/18 21:55 Dose: 1,000 mls/hr Lorazepam (Ativan) 0.5 mg IV NOW ONE Stop: 06/06/18 23:06 Last Admin: 06/06/18 23:36 Dose: 0.5 mg Meclizine HCl (Antivert) 25 mg PO NOW ONE Stop: 06/06/18 21:49 Last Admin: 06/06/18 21:55 Dose: 25 mg Reevaluation(s) Reevaluation #1: patient felt much better after fluids and meclizine, able to ambulate at her baseline. Feeling well and requesting DC. Nursing note states she hit her head, patient no longer thinks she did, head CT ordered as it is unclear at this point if she hit her head. Vital Signs - 8 hr 06/07/18 01:05 Pulse Rate 75 Respiratory Rate 16 Blood Pressure [Left Wrist] 130/72 Pulse Oximetry 95 MDM - Extremity Injury (Lower) Medical Records Attestation: I reviewed the patient's medical records. Lab Data Result diagrams: 06/06/18 19:20 06/06/18 19:20 Lab Results 06/06/18 06/06/18 06/06/18 Range/Units 19:20 19:20 19:20 WBC 12.6 H (4.5-11.0) X10^3/uL RBC 4.18 (4.0-5.2) X10^6/uL Hgb 13.6 (12.0-16.0) g/dL Hct 41.5 (36-46) % MCV 99.2 (80-100) fL MCH 32.5 (26-34) PG MCHC 32.8 (30-36) % RDW 14.0 (11.6-14.8) % Plt Count 207 (150-400) X10^3/uL Neut % (Auto) 81.8 H (50-75) % Lymph % (Auto) 11.2 L (25-40) % [place] % (Auto) 6.2 (3-14) % Eos % (Auto) 0.2 L (2-4) % Baso % (Auto) 0.6 (0-2) % Neut # (Auto) 68278 H (3836-8756) /uL Lymph # (Auto) 1400 (6434-0619) /uL [place] # (Auto) 800 (0-900) /uL Eos # (Auto) 0 (0-450) /uL Baso # (Auto) 100 (0-100) /uL PT 9.8 L (10.1-12.7) SECONDS INR 0.9 (0.9-1.3) APTT 23 L (26.4-36.2) SECONDS Sodium 133 L (137-145) mmol/L Potassium 4.4 (3.4-5.1) mmol/L Chloride 99 (98-107) mmol/L Carbon Dioxide 19 L (22-32) mmol/L BUN 29 H (7-17) mg/dL Creatinine 0.80 (0.52-1.04) mg/dL Estimated GFR > 60.0 (>60) mL/min BUN/Creatinine Ratio 36.3 H (6-22) Glucose 436 H D (70-100) mg/dL Calcium 9.5 (8.4-10.2) mg/dL Total Bilirubin 0.4 (0.2-1.3) mg/dL AST 48 H (14-36) IU/L ALT 100 H (9-52) IU/L Alkaline Phosphatase 233 H (38-126) U/L Total Creatine Kinase 44 (30-135) U/L CK-MB (CK-2) TNP CK-MB (CK-2) Rel Index TNP Troponin I < 0.012 (0.01-0.034) ng/mL Total Protein 7.0 (6.3-8.2) g/dL Albumin 4.0 (3.5-5.0) g/dL Globulin 3.0 (1.7-4.1) g/dL Albumin/Globulin Ratio 1.3 (1.0-2.8) Lipase 456 H (23-300) U/L Point of Care Testing Glucose POC 406 Urine Dip Bedside Urine Glucose 1000 mg/dl Bedside Urine Bilirubin - Negative Bedside Urine Ketone - Negative Urine Specific [place] 1.020 Bedside Urine Occult Blood - Negative Bedside Urine pH 5.5 Bedside Urine Protein - Negative Bedside Urine Urobilinogen - Negative Bedside Urine Nitrite - Negative Bedside Urine Leukocytes - Negative Esterase Imaging Data CT scan - head: Radiologist's impression: Breana Claudio - Patient Chart Chart Viewer Diagnostics DATE TYPE STATUS AUTHOR Hx 06/06/18 18:44 Martha Singleton 06/06/18 18:42 Martha Singleton 06/01/18 06:19 Chriss Zamora 01/12/18 20:03 Amadou Garcia 12/23/17 11:52 Chriss Zamora 12/23/17 11:52 Chriss Zamora 12/23/17 10:24 Krish Egan Leslie J 58, 1960 DEP ER, ED - Main ED: R04 108.862kg Syncope Search Chart NF - Not included in interaction checking adhesive tape escitalopram lamotrigine levetiracetam Penicillins silicone zonisamide ONSET ~2011 ~2007 ~201506/07/18 01:[address] [address] [address] Scan Report Signed Patient: Breana Claudio JMR#: [id number] : [id number]:[id number] Age/Sex: 58 / FDate of Service: 06/06/18 Loc: ED Accession Number: [id number] Procedure: CT head/brain wo con Ordering Provider: Byron,Haroldo D.O. PROCEDURE: CT HEAD/BRAIN WO CON INDICATIONS: syncope, head injury, hx meningioma TECHNIQUE: Noncontrast 4.5 mm thick angled axial sections acquired from the foramen magnum to the vertex, with coronal and sagittal reformats. For radiation dose reduction, the following was used: automated exposure control, adjustment of mA and/or kV according to patient size. COMPARISON: [facility], MR, MR BRAIN WITH/WITHOUT CONTRAST, 05/20/2018, 11:37. FINDINGS: Image quality: Excellent. CSF spaces: Basal cisterns are patent. No extra-axial fluid collections. Ventricles are normal in size and shape. Brain: No midline shift. No acute intracranial masses or hemorrhage. Bilateral frontal cortical calcifications are present, as before. Left frontal resection cavity is present, as before. Bifrontal hypodensity is present, corresponding to elevated flairs signal on the prior MRI examination. Sainz-white matter interface is normal. Skull and face: Left frontal craniotomy. Calvarium and visualized facial bones are otherwise intact, without suspicious lesions. Sinuses: Bilateral maxillary sinus air-fluid levels. IMPRESSION: 1. Postsurgical sequelae. 2. No acute process. 3. Bilateral maxillary sinus disease. Dictated by: Martha Singleton M.D. on 06/06/2018 at 19:08 Approved by: Martha Singleton M.D. on 06/06/2018 at 19:09 ECG Data Attestation: I personally reviewed and interpreted this ECG as follows: MDM Narrative Medical decision making narrative: Multiple etiologies for patient's symptoms considered including: [Syncope versus near syncope, arrhythmia, dehydration and other considered] Patient's symptoms improved or duration of stay with above-stated therapies. Findings and discharge diagnosis discussed with patient/family followed by verbalization of understanding Return precautions discussed with patient/family whom verbalize understanding. Discharge Plan Departure Patient Disposition: Home Clinical Impression: Vertigo Discharge Date/Time: 06/07/18 02:17 Interventions: ED Discharge Assessment Last Done: 06/07/18 01:32 Instructions: DI for Vertigo Activity Restrictions/Additional Instructions: *You have been diagnosed with [ acute vertigo ] *What to do: *Take medications as directed *Follow up with your primary care provider in 2-3 days, call for an appointment. Let them know you were seen in the Emergency Department and that we ask that you be seen in follow up *Return to ER if you should have any new, worsening or concerning symptoms Prescriptions: New meclizine 25 mg tablet 25 mg PO BID-TID PRN (Reason: dizziness or vertigo) Qty: 10 RF: 0 No Action cholecalciferol (vitamin D3) 1,000 unit capsule 1,000 unit PO DAILY Qty: 90 RF: 3 furosemide 20 mg tablet 20 mg PO DAILY Qty: 30 RF: 3 phenytoin sodium extended 100 mg capsule See Patient Comments PO .COMPLEX Qty: 60 RF: 3 folic acid 400 mcg tablet 0.4 mg PO QPM Qty: 90 RF: 0 oxycodone-acetaminophen 5-325 mg tablet 1 tab PO BEDTIME PRN (Reason: moderate pain/discomfort) Qty: 30 RF: 0 nystatin 100,000 unit/gram powder 1 applictn TOP DAILY Qty: 30 RF: 3 glipizide 5 mg tablet 5 mg PO BID Qty: 60 RF: 3 Fish Oil .ROUTE .MEDSUPPLY Qty: 90 RF: 0 melatonin 3 mg tablet 6 mg PO BEDTIME Qty: 90 RF: 0 simvastatin 20 mg tablet 20 mg PO QPM Qty: 90 RF: 0 tolterodine 4 mg capsule,extended release 24hr 4 mg PO DAILY Qty: 90 RF: 0 dexamethasone 2 mg tablet 2 mg PO BID Qty: 90 RF: 0 omeprazole 20 mg capsule,delayed release(DR/EC) 20 mg PO BID Qty: 90 RF: 0 midodrine 5 mg tablet 5 mg PO TID Qty: 90 RF: 0 acetaminophen 325 mg tablet 650 mg PO Q4H PRN (Reason: Fever Or Pain) Qty: 90 RF: 0 hydrocortisone [Anti-Itch (HC)] 1 % cream 1 applictn TOP Q6H PRN (Reason: rash) Qty: 28 RF: 0 ondansetron HCl 4 mg tablet 4 mg PO Q6H PRN (Reason: Nausea And Vomiting) Qty: 30 RF: 0 metformin 1,000 mg tablet 1,000 mg PO BID Qty: 90 RF: 3 insulin glargine [Basaglar KwikPen U-100 Insulin] 100 unit/mL (3 mL) insulin pen 30 unit SUBCUT DAILY Qty: 3 RF: 3 pen needle, diabetic 32 gauge x 5/32 needle .ROUTE .MEDSUPPLY 30 Days Qty: 100 RF: 0 pen needle,diabetic dual safty 30 gauge x 3/16 needle .ROUTE .MEDSUPPLY 25 Days Qty: 100 RF: 0 potassium chloride 10 mEq capsule, extended release 10 meq PO DAILY Qty: 30 RF: 0 aspirin 81 mg Tablet,Delayed Release (Dr/Ec) 81 mg PO DAILY RF: 0 citalopram 20 mg tablet 20 mg PO DAILY RF: 0 magnesium oxide 400 mg Tablet 400 mg PO DAILY RF: 0 ibuprofen 400 mg Tablet 400 mg PO BID RF: 0 insulin glargine [Basaglar KwikPen U-100 Insulin] 100 unit/mL (3 mL) Insulin Pen 30 unit SUBCUT DAILY RF: 0 loratadine [Claritin] 10 mg tablet 10 mg PO DAILY Qty: 30 RF: 0
[2018-06-06] MEDS: SODIUM CHLORIDE 0.9% 1,000 ML 1000 ML IV ×2 (19:44→21:55)
[2018-06-06 19:47] LABS: Alanine Aminotransferase 100 IU/L (9-52); Albumin Globulin Ratio 1.3 (1.0-2.8); Alkaline Phosphatase 233 U/L (38-126); Aspartate Aminotransferase 48 IU/L (14-36); BUN Creatinine Ratio 36.3 (6-22); Bilirubin Total 0.4 mg/dL (0.2-1.3); Blood Urea Nitrogen 29 mg/dL (7-17); Calcium 9.5 mg/dL (8.4-10.2); Carbon Dioxide 19 mmol/L (22-32); Chloride 99 mmol/L (98-107); Creatine Kinase 44 U/L (30-135); Estimated Glomerular Filt Rate > 60.0 mL/min (>60); Glucose 436 mg/dL (70-100); HEMOLYSIS 20 (0-50); INR 0.9 (0.9-1.3); Lipase 456 U/L (23-300); Potassium 4.4 mmol/L (3.4-5.1); Prothrombin Time 9.8 SECONDS (10.1-12.7); Sodium 133 mmol/L (137-145)
[2018-06-06 19:50] LABS: PTT Partial Thromboplastin Tim 23 SECONDS (26.4-36.2)
[2018-06-06 19:59] LABS: Troponin I < 0.012 ng/mL (0.01-0.034)
[2018-06-06 21:19] VITALS: BP 109/64; BP 131/90; BP 134/88; PULSE 104; PULSE 80; PULSE 94
[2018-06-06] MEDS: MECLIZINE HCL 12.5 MG TABLET 25 MG PO (21:55)
[2018-06-06 21:58] VITALS: BP 117/65; PULSE 79; RESP 18; O2SAT 96
[2018-06-06 22:27] VITALS: BP 115/72; PULSE 70; RESP 17; O2SAT 94
[2018-06-06] MEDS: LORazepam 2 MG/ML SYRINGE 0.5 MG IV (23:36)
[2018-06-07 01:05] VITALS: BP 130/72; PULSE 75; RESP 16; O2SAT 95
--- NOTE | 2018-06-07 06:56 | ED_ITS ---
HPI - Extremity Injury (Lower) General Chief Complaint: Syncope Stated Complaint: 2 Falls Time Seen by Provider: 06/06/18 18:39 Source: patient and family Mode of arrival: ambulatory Limitations: no limitations History of Present Illness HPI Narrative: 58-year-old female, former smoker and chronically dizzy presents to the emergency department with 2 episodes of lightheadedness upon standing, worse than normal, which made her ease herself to the ground. She denies syncope and has full recall of the events. She denies any injury as a result of the fall. She states she has had some nausea and loose stool but denies any significant vomiting. She has a history of becoming dehydrated per her own report. She denies fever or chills. She denies chest pain or palpitations. She denies abdominal pain. She has had no dysuria, frequency or urgency. Onset (ago): hour(s) Place: home Severity: moderate Relieving factors: immobilization Exacerbating factors: movement Related Data Home Medications Medication Instructions Recorded Confirmed aspirin 81 mg PO DAILY 12/23/17 06/01/18 citalopram 20 mg PO DAILY 12/23/17 06/01/18 ibuprofen 400 mg PO BID 12/23/17 06/01/18 magnesium oxide 400 mg PO DAILY 12/23/17 06/01/18 pen needle, diabetic 32 gauge x #100 each 01/07/18 02/25/18 5/32 pen needle,diabetic dual safety 30 #100 each 01/07/18 02/25/18 gauge x 3/16 insulin glargine [Basaglar KwikPen 30 unit SUBCUT DAILY 06/01/18 06/01/18 U-100 Insulin] Previous Rx's Medication Instructions Recorded potassium chloride ER 10 mEq 10 meq PO DAILY #30 cap 02/27/18 capsule,extended release cholecalciferol (vitamin D3) 1,000 1,000 unit PO DAILY #90 cap 03/04/18 unit capsule furosemide 20 mg tablet 20 mg PO DAILY #30 tab 03/17/18 phenytoin sodium extended 100 mg See Label Instructions PO .COMPLEX 04/24/18 capsule #60 cap folic acid 400 mcg tablet 0.4 mg PO QPM #90 tab 05/05/18 oxycodone-acetaminophen 5 mg-325 1 tab PO BEDTIME PRN #30 tab 05/15/18 mg tablet nystatin 100,000 unit/gram topical 1 applictn TOP DAILY #30 gram 05/23/18 powder Fish Oil #90 each 05/29/18 acetaminophen 325 mg tablet 650 mg PO Q4H PRN #90 tab 05/29/18 dexamethasone 2 mg tablet 2 mg PO BID #90 tab 05/29/18 glipizide 5 mg tablet 5 mg PO BID #60 tab 05/29/18 hydrocortisone 1 % topical cream 1 applictn TOP Q6H PRN #28 gram 05/29/18 melatonin 3 mg tablet 6 mg PO BEDTIME #90 tab 05/29/18 metformin 1,000 mg tablet 1,000 mg PO BID #90 tab 05/29/18 midodrine 5 mg tablet 5 mg PO TID #90 tab 05/29/18 omeprazole 20 mg capsule,delayed 20 mg PO BID #90 cap 05/29/18 release ondansetron HCl 4 mg tablet 4 mg PO Q6H PRN #30 tab 05/29/18 simvastatin 20 mg tablet 20 mg PO QPM #90 tab 05/29/18 tolterodine ER 4 mg 4 mg PO DAILY #90 cap 05/29/18 capsule,extended release 24 hr loratadine [Claritin] 10 mg PO DAILY #30 tab 06/01/18 insulin glargine (U-100) 100 30 unit SUBCUT DAILY #3 ml 06/02/18 unit/mL (3 mL) subcutaneous pen meclizine 25 mg PO BID-TID PRN #10 tab 06/07/18 Allergies Allergy/AdvReac Type Severity Reaction Status Date / Time adhesive tape Allergy Unknown Verified 06/01/18 06:57 escitalopram Allergy Unknown Verified 06/01/18 06:57 lamotrigine Allergy Unknown Verified 06/01/18 06:57 levetiracetam Allergy Unknown Verified 06/01/18 06:57 Penicillins Allergy Unknown Verified 06/01/18 06:57 silicone Allergy Unknown Verified 06/01/18 06:57 zonisamide Allergy Unknown Verified 06/01/18 06:57 Review of Systems Constitutional Denies chills, Denies fever(s), Denies lethargy and Reports weakness Eyes Denies change in vision, Denies eye discharge, Denies irritation and Denies loss of vision ENT Ears, Nose, Mouth, and Throat: Denies change in voice, Reports dizziness, Denies neck pain and Denies sore throat Cardiovascular Denies chest pain, Denies irregular heart rhythm, Denies lightheadedness, Denies palpitations, Denies dyspnea, Denies dyspnea on exertion and Denies orthopnea Respiratory Denies cough, Denies dyspnea, Denies dyspnea on exertion and Denies wheezing Gastrointestinal Gastrointestinal: Denies abdominal pain, Denies change in bowel habits, Denies diarrhea, Denies nausea and Denies vomiting Genitourinary Denies hematuria, Denies flank pain, Denies urinary incontinence and Denies urinary urgency Musculoskeletal Denies neck pain Integumentary/Breasts Denies pruritus, Denies erythema, Denies rash and Denies wounds Neurologic Denies confusion, Reports dizziness, Denies loss of vision and Reports weakness Psychiatric Denies anxiety, Denies confusion, Denies depression, Denies homicidal ideation and Denies suicidal ideation Endocrine Denies palpitations Hematologic/Lymphatic Denies easy bruising Allergic/Immunologic Denies wheezing [facility] Medical History Diabetes mellitus type 2, insulin dependent (Chronic ~2007) Cognitive dysfunction (Chronic) Depression (Chronic) Urinary incontinence (Chronic ~2015) Other and unspecified hyperlipidemia (Chronic) Orthostatic hypotension (Chronic) Seizure disorder (Chronic) GERD without esophagitis (Chronic) Anxiety (Chronic) Hearing loss (Chronic ~2016) Ovarian cyst (Chronic ~1983) Vision disorder (Chronic) Chicken pox (Resolved ~1966) Fractures (Resolved ~2017) Measles (Resolved ~1963) Surgical History Meningioma (Chronic ~2011) Anesthesia (Resolved) History of cholecystectomy (Resolved ~1987) History of hysterectomy (Resolved ~1988) No pertinent past surgical history (Inactive) Family History Father Cancer Diabetes mellitus Hypertension Sister Hypertension Sister Cancer Grandfather Heart disease Grandmother Heart disease Social History marital status: number of children: 3 lives independently: Yes caregiver/support person: Yes housing: assisted living facility pets and animals: No education level: high school occupational status: disabled Previous occupational history: [employer] in [place] [employer]restoration: None leisure activities: games (Bingo) and other (Movies, TV) Smoking Status: Former smoker Tobacco: How many years used: 2 Smokeless tobacco user: other (Cigarettes) quit status: quit date established (2010) second hand exposure: No alcohol intake: never substance use type: does not use Family History Father Cancer Diabetes mellitus Hypertension Sister Hypertension Sister Cancer Grandfather Heart disease Grandmother Heart disease Social History marital status: number of children: 3 lives independently: Yes caregiver/support person: Yes housing: assisted living facility pets and animals: No education level: high school occupational status: disabled Previous occupational history: [employer] in [place] [employer]/restoration: None leisure activities: games (Seratis) and other (Movies, TV) Smoking Status: Former smoker Tobacco: How many years used: 2 Smokeless tobacco user: other (Cigarettes) quit status: quit date established (2010) second hand exposure: No alcohol intake: never substance use type: does not use Exam Narrative Exam Narrative: GENERAL: 58-year-old female, morbidly obese, in mild distress. HEAD: Atraumatic. Normocephalic. No temporal or scalp tenderness. EYES: Pupils equal round and reactive. Extraocular motions intact. No scleral icterus. No injection or drainage. ENT: Dry membranes. Nose without bleeding, purulent drainage or septal hematoma. Throat without erythema, tonsillar hypertrophy or exudate. Uvula midline. Airway patent. NECK: Trachea midline. No JVD or lymphadenopathy. Supple, nontender, no meningeal signs. CARDIOVASCULAR: Regular rate and rhythm without murmurs, gallops, or rubs. RESPIRATORY: Clear to auscultation. Breath sounds equal bilaterally. No wheezes , rales, or rhonchi. GASTROINTESTINAL: Abdomen soft, non-tender, nondistended. No hepato-splenomegaly , or palpable masses. No guarding. EXTREMITIES: No clubbing, cyanosis, or edema. No joint tenderness, effusion, or edema noted. BACK: Nontender without deformity or crepitance. No flank tenderness. NEURO: AOx3. No problems with finger to nose, or heel to dudley. SKIN: No rash or erythema. Initial Vital Signs Initial Vital Signs: Vital Signs Temperature 97.8 F 06/06/18 18:47 Pulse Rate 95 H 02/01/19 18:47 Respiratory Rate 15 06/06/18 18:47 Blood Pressure 129/72 06/06/18 18:47 Pulse Oximetry 93 06/06/18 18:47 Course Orders Ordered: Discontinued Medications Sodium Chloride (Normal Saline 0.9%) 1,000 mls @ 1,000 mls/hr IV BOLUS ONE Stop: 06/06/18 19:43 Last Infusion: 06/06/18 21:33 Dose: 0 mls/hr Admin: 06/06/18 19:44 Dose: 1,000 mls/hr Sodium Chloride (Normal Saline 0.9%) 1,000 mls @ 1,000 mls/hr IV BOLUS ONE Stop: 06/06/18 20:11 Last Admin: 06/06/18 21:56 Dose: Sodium Chloride (Normal Saline 0.9%) 1,000 mls @ 1,000 mls/hr IV BOLUS ONE Stop: 06/06/18 22:47 Last Infusion: 06/06/18 23:04 Dose: 0 mls/hr Admin: 06/06/18 21:55 Dose: 1,000 mls/hr Lorazepam (Ativan) 0.5 mg IV NOW ONE Stop: 06/06/18 23:06 Last Admin: 06/06/18 23:36 Dose: 0.5 mg Meclizine HCl (Antivert) 25 mg PO NOW ONE Stop: 06/06/18 21:49 Last Admin: 06/06/18 21:55 Dose: 25 mg Reevaluation(s) Reevaluation #1: patient felt much better after fluids and meclizine, able to ambulate at her baseline. Feeling well and requesting DC. Nursing note states she hit her head, patient no longer thinks she did, head CT ordered as it is unclear at this point if she hit her head. Vital Signs - 8 hr 06/07/18 01:05 Pulse Rate 75 Respiratory Rate 16 Blood Pressure [Left Wrist] 130/72 Pulse Oximetry 95 MDM - Extremity Injury (Lower) Medical Records Attestation: I reviewed the patient's medical records. Lab Data Result diagrams: 06/06/18 19:20 06/06/18 19:20 Lab Results 06/06/18 06/06/18 06/06/18 Range/Units 19:20 19:20 19:20 WBC 12.6 H (4.5-11.0) X10^3/uL RBC 4.18 (4.0-5.2) X10^6/uL Hgb 13.6 (12.0-16.0) g/dL Hct 41.5 (36-46) % MCV 99.2 (80-100) fL MCH 32.5 (26-34) PG MCHC 32.8 (30-36) % RDW 14.0 (11.6-14.8) % Plt Count 207 (150-400) X10^3/uL Neut % (Auto) 81.8 H (50-75) % Lymph % (Auto) 11.2 L (25-40) % [place] % (Auto) 6.2 (3-14) % Eos % (Auto) 0.2 L (2-4) % Baso % (Auto) 0.6 (0-2) % Neut # (Auto) 66240 H (7367-9745) /uL Lymph # (Auto) 1400 (3204-4503) /uL [place] # (Auto) 800 (0-900) /uL Eos # (Auto) 0 (0-450) /uL Baso # (Auto) 100 (0-100) /uL PT 9.8 L (10.1-12.7) SECONDS INR 0.9 (0.9-1.3) APTT 23 L (26.4-36.2) SECONDS Sodium 133 L (137-145) mmol/L Potassium 4.4 (3.4-5.1) mmol/L Chloride 99 (98-107) mmol/L Carbon Dioxide 19 L (22-32) mmol/L BUN 29 H (7-17) mg/dL Creatinine 0.80 (0.52-1.04) mg/dL Estimated GFR > 60.0 (>60) mL/min BUN/Creatinine Ratio 36.3 H (6-22) Glucose 436 H D (70-100) mg/dL Calcium 9.5 (8.4-10.2) mg/dL Total Bilirubin 0.4 (0.2-1.3) mg/dL AST 48 H (14-36) IU/L ALT 100 H (9-52) IU/L Alkaline Phosphatase 233 H (38-126) U/L Total Creatine Kinase 44 (30-135) U/L CK-MB (CK-2) TNP CK-MB (CK-2) Rel Index TNP Troponin I < 0.012 (0.01-0.034) ng/mL Total Protein 7.0 (6.3-8.2) g/dL Albumin 4.0 (3.5-5.0) g/dL Globulin 3.0 (1.7-4.1) g/dL Albumin/Globulin Ratio 1.3 (1.0-2.8) Lipase 456 H (23-300) U/L Point of Care Testing Glucose POC 406 Urine Dip Bedside Urine Glucose 1000 mg/dl Bedside Urine Bilirubin - Negative Bedside Urine Ketone - Negative Urine Specific [place] 1.020 Bedside Urine Occult Blood - Negative Bedside Urine pH 5.5 Bedside Urine Protein - Negative Bedside Urine Urobilinogen - Negative Bedside Urine Nitrite - Negative Bedside Urine Leukocytes - Negative Esterase Imaging Data CT scan - head: Radiologist's impression: Breana Claudio - Patient Chart Chart Viewer Diagnostics DATE TYPE STATUS AUTHOR Hx 06/06/18 18:44 Martha Singleton 06/06/18 18:42 Martha Singleton 06/01/18 06:19 Chriss Zamora 01/12/18 20:03 Amadou Garcia 12/23/17 11:52 Chriss Zamora 12/23/17 11:52 Chriss Zamora 12/23/17 10:24 Krish Egan Leslie J 58, 1960 DEP ER, ED - Main ED: R04 108.862kg Syncope Search Chart NF - Not included in interaction checking adhesive tape escitalopram lamotrigine levetiracetam Penicillins silicone zonisamide ONSET ~2011 ~2007 ~201506/07/18 01:[address] [address] [address] Scan Report Signed Patient: Breana Claudio JMR#: [id number] : 1960cct:[id number] Age/Sex: 58 / FDate of Service: 06/06/18 Loc: ED Accession Number: [id number] Procedure: CT head/brain wo con Ordering Provider: Brusly,Haroldo D.O. PROCEDURE: CT HEAD/BRAIN WO CON INDICATIONS: syncope, head injury, hx meningioma TECHNIQUE: Noncontrast 4.5 mm thick angled axial sections acquired from the foramen magnum to the vertex, with coronal and sagittal reformats. For radiation dose reduction, the following was used: automated exposure control, adjustment of mA and/or kV according to patient size. COMPARISON: [facility], MR, MR BRAIN WITH/WITHOUT CONTRAST, 2018, 11:37. FINDINGS: Image quality: Excellent. CSF spaces: Basal cisterns are patent. No extra-axial fluid collections. Ventricles are normal in size and shape. Brain: No midline shift. No acute intracranial masses or hemorrhage. Bilateral frontal cortical calcifications are present, as before. Left frontal resection cavity is present, as before. Bifrontal hypodensity is present, corresponding to elevated flairs signal on the prior MRI examination. Sainz-white matter interface is normal. Skull and face: Left frontal craniotomy. Calvarium and visualized facial bones are otherwise intact, without suspicious lesions. Sinuses: Bilateral maxillary sinus air-fluid levels. IMPRESSION: 1. Postsurgical sequelae. 2. No acute process. 3. Bilateral maxillary sinus disease. Dictated by: Martha Singleton M.D. on 06/06/2018 at 19:08 Approved by: Martha Singleton M.D. on 06/06/2018 at 19:09 ECG Data Attestation: I personally reviewed and interpreted this ECG as follows: MDM Narrative Medical decision making narrative: Multiple etiologies for patient's symptoms considered including: [Syncope versus near syncope, arrhythmia, dehydration and other considered] Patient's symptoms improved or duration of stay with above-stated therapies. Findings and discharge diagnosis discussed with patient/family followed by verbalization of understanding Return precautions discussed with patient/family whom verbalize understanding. Discharge Plan Departure Patient Disposition: Home Clinical Impression: Vertigo Discharge Date/Time: 06/07/18 02:17 Interventions: ED Discharge Assessment Last Done: 06/07/18 01:32 Instructions: DI for Vertigo Activity Restrictions/Additional Instructions: *You have been diagnosed with [ acute vertigo ] *What to do: *Take medications as directed *Follow up with your primary care provider in 2-3 days, call for an appointment. Let them know you were seen in the Emergency Department and that we ask that you be seen in follow up *Return to ER if you should have any new, worsening or concerning symptoms Prescriptions: New meclizine 25 mg tablet 25 mg PO BID-TID PRN (Reason: dizziness or vertigo) Qty: 10 RF: 0 No Action cholecalciferol (vitamin D3) 1,000 unit capsule 1,000 unit PO DAILY Qty: 90 RF: 3 furosemide 20 mg tablet 20 mg PO DAILY Qty: 30 RF: 3 phenytoin sodium extended 100 mg capsule See Patient Comments PO .COMPLEX Qty: 60 RF: 3 folic acid 400 mcg tablet 0.4 mg PO QPM Qty: 90 RF: 0 oxycodone-acetaminophen 5-325 mg tablet 1 tab PO BEDTIME PRN (Reason: moderate pain/discomfort) Qty: 30 RF: 0 nystatin 100,000 unit/gram powder 1 applictn TOP DAILY Qty: 30 RF: 3 glipizide 5 mg tablet 5 mg PO BID Qty: 60 RF: 3 Fish Oil .ROUTE .MEDSUPPLY Qty: 90 RF: 0 melatonin 3 mg tablet 6 mg PO BEDTIME Qty: 90 RF: 0 simvastatin 20 mg tablet 20 mg PO QPM Qty: 90 RF: 0 tolterodine 4 mg capsule,extended release 24hr 4 mg PO DAILY Qty: 90 RF: 0 dexamethasone 2 mg tablet 2 mg PO BID Qty: 90 RF: 0 omeprazole 20 mg capsule,delayed release(DR/EC) 20 mg PO BID Qty: 90 RF: 0 midodrine 5 mg tablet 5 mg PO TID Qty: 90 RF: 0 acetaminophen 325 mg tablet 650 mg PO Q4H PRN (Reason: Fever Or Pain) Qty: 90 RF: 0 hydrocortisone [Anti-Itch (HC)] 1 % cream 1 applictn TOP Q6H PRN (Reason: rash) Qty: 28 RF: 0 ondansetron HCl 4 mg tablet 4 mg PO Q6H PRN (Reason: Nausea And Vomiting) Qty: 30 RF: 0 metformin 1,000 mg tablet 1,000 mg PO BID Qty: 90 RF: 3 insulin glargine [Basaglar KwikPen U-100 Insulin] 100 unit/mL (3 mL) insulin pen 30 unit SUBCUT DAILY Qty: 3 RF: 3 pen needle, diabetic 32 gauge x 5/32 needle .ROUTE .MEDSUPPLY 30 Days Qty: 100 RF: 0 pen needle,diabetic dual safty 30 gauge x 3/16 needle .ROUTE .MEDSUPPLY 25 Days Qty: 100 RF: 0 potassium chloride 10 mEq capsule, extended release 10 meq PO DAILY Qty: 30 RF: 0 aspirin 81 mg Tablet,Delayed Release (Dr/Ec) 81 mg PO DAILY RF: 0 citalopram 20 mg tablet 20 mg PO DAILY RF: 0 magnesium oxide 400 mg Tablet 400 mg PO DAILY RF: 0 ibuprofen 400 mg Tablet 400 mg PO BID RF: 0 insulin glargine [Basaglar KwikPen U-100 Insulin] 100 unit/mL (3 mL) Insulin Pen 30 unit SUBCUT DAILY RF: 0 loratadine [Claritin] 10 mg tablet 10 mg PO DAILY Qty: 30 RF: 0
== END 2018-06-07 02:17 | disposition home or self-care (01) ==
PROVIDERS: Emergency Provider Emergency Medicine; PCP Internal Medicine
DX: R42 Dizziness and giddiness (principal)
CPT/HCPCS: 36591; 70450; 71045; 80053; 81003; 82550; 82962; 83690; 84484; 85025; 85610; 85730; 93005; 96361; 96374; 99284; 99285; J2060

== ENCOUNTER → 2018-07-30 09:42 | Outpatient (CLI) | payer MEDICARE, MEDICAID, SELFPAY ==
--- NOTE | 2018-07-30 09:46 | DI.MG.S_ITS ---
BILATERAL DIGITAL SCREENING MAMMOGRAM 3D/2D WITH CAD: 07/30/2018 CLINICAL: Routine screening. Comparison is made to exams dated: 04/20/2013 mammogram, 04/23/2014 mammogram, and 04/25/2015 mammogram - [facility]. There are scattered fibroglandular elements in both breasts. Current study was also evaluated with a Computer Aided Detection (CAD) system. Evaluation limited due to inability to position the patient who was unable to stand for the exam. However, the best possible images were obtained today for evaluation. No significant masses, calcifications, or other findings are seen in either breast. There has been no significant interval change. IMPRESSION: NEGATIVE There is no mammographic evidence of malignancy. A 1 year screening mammogram is recommended. This exam was interpreted at Station ID: [id number]. NOTE: For mammograms, a report in lay terms will be sent to the patient. Approximately 15% of breast malignancies will not be visualized mammographically. In the management of a palpable breast mass, a negative mammogram must not discourage biopsy of a clinically suspicious lesion. Electronically Signed By: Willis marie/:07/30/2018 10:15:19 letter sent: Normal Exam ACR BI-RADS Category 1: Negative [id number]
== END ==
PROVIDERS: PCP Internal Medicine; Visit Provider Internal Medicine
DX: Z12.31 Encounter for screening mammogram for malignant neoplasm of breast (principal)
CPT/HCPCS: 77063; 77067

== ENCOUNTER → 2018-08-21 19:08 | Outpatient (REF) | payer MEDICARE, MEDICAID, SELFPAY ==
[2018-08-21 19:11] LABS: Bacteria Urine None Seen; RBC Urine None Seen (0-5/HPF); WBC Urine None Seen (0-5/HPF)
[2018-08-21 19:53] LABS: Appearance Urine UA CLEAR; Bilirubin Urine UA NEGATIVE (NEGATIVE); Color Urine UA YELLOW; Glucose Urine UA NEGATIVE (Negative); Ketones Urine UA NEGATIVE (NEGATIVE); Leukocyte Esterase Urine UA NEGATIVE (NEGATIVE); Nitrite Urine UA NEGATIVE (Negative); Occult Blood Urine UA NEGATIVE (Negative); Protein Urine UA NEGATIVE (Negative); Urobilinogen Urine UA 0.2 E.U./dL (0.2)
[2018-08-21 19:59] LABS: Culture Indicated Urine Cult Not Indicated
== END ==
LOC: LAB 19:08
PROVIDERS: PCP Internal Medicine; Visit Provider Internal Medicine
DX: R32 Unspecified urinary incontinence (principal); N31.8 Other neuromuscular dysfunction of bladder; R30.0 Dysuria
CPT/HCPCS: 81001

== ENCOUNTER 2018-12-08 20:36 | Inpatient (IN) | payer MEDICARE, MEDICAID, SELFPAY ==
[2018-12-08] VITALS (10 sets, daily range): BP systolic 126–149; BP diastolic 70–93; PULSE 97–110; RESP 15–23; O2SAT 94–98
--- NOTE | 2018-12-08 20:36 | DI.CT.S_ITS ---
PROCEDURE: CT CERVICAL SPINE WO CON INDICATIONS: fall from bed TECHNIQUE: Noncontrast 3 mm thick sections acquired from the skull base to the T4 level. Sagittal and coronal reformats were then constructed. For radiation dose reduction, the following was used: automated exposure control, adjustment of mA and/or kV according to patient size. COMPARISON: None. FINDINGS: Image quality: Excellent. Bones: No fractures or dislocations. There is no degenerative disease at C5-C6 and C6-C7. Bilateral facet arthropathy is present, most pronounced at C3-C4 on the left. Visualized superior ribs are intact. Soft tissues: Prevertebral soft tissues are normal in thickness. No paravertebral hematomas. No apical pneumothoraces. Bibasilar atelectasis. There is right facial soft tissue contusion. IMPRESSION: 1. No fractures. 2. Degenerative changes in cervical spine. 3. Bibasilar atelectasis. Dictated by: Mike Zamora M.D. on 12/08/2018 at 21:53 Approved by: Mike Zamora M.D. on 12/08/2018 at 21:56
--- NOTE | 2018-12-08 20:36 | DI.CT.S_ITS ---
PROCEDURE: CT FACIAL BONES WO CON INDICATIONS: fall from bed, significant facial pain and swelling TECHNIQUE: Noncontrast 2.5 mm thick axial images acquired from the mandible through the frontal sinuses, with coronal and sagittal reformatting. For radiation dose reduction, the following was used: automated exposure control, adjustment of mA and/or kV according to patient size. COMPARISON: None. FINDINGS: Image quality: Excellent. Bones and teeth: Orbital dangelo are intact. Sinus dangelo show no fracture or deformity. Nasal bones and septum are intact. Visualized portions of the mandible demonstrate no fractures or subluxation. Zygomatic arches are intact. Pterygoid plates are intact. Visualized portions of the skull base and auditory canals are intact. Sinuses: Paranasal sinuses are aerated, without fluid levels, mucosal thickening, or mucoceles. Mastoid air cells are aerated. Soft tissues: There is soft tissue contusion in the right preorbital/premaxillary area with subcutaneous hematoma and emphysema. No enlarged lymph nodes. Vascular: Visualized vascular structures appear normal in the absence of contrast. Bony vascular foramina and canals are intact. IMPRESSION: 1. No facial bone fracture is identified. 2. Right preorbital/premaxillary soft tissue contusion with subcutaneous hematoma and emphysema. Dictated by: Mike Zamora M.D. on 12/08/2018 at 21:41 Approved by: Mike Zamora M.D. on 12/08/2018 at 21:45
--- NOTE | 2018-12-08 20:36 | DI.CT.S_ITS ---
PROCEDURE: CT HEAD/BRAIN WO CON INDICATIONS: trauma TECHNIQUE: Noncontrast 4.5 mm thick angled axial sections acquired from the foramen magnum to the vertex, with coronal and sagittal reformats. For radiation dose reduction, the following was used: automated exposure control, adjustment of mA and/or kV according to patient size. COMPARISON: [facility], MR, MR BRAIN WITH/WITHOUT CONTRAST, 10/06/2018, 13:53. [facility], MR, MR BRAIN WITH/WITHOUT CONTRAST, 02/05/2018, 13:52. [facility], MR, MR BRAIN WITH/WITHOUT CONTRAST, 05/20/2018, 11:37. [facility], CT, CT HEAD/BRAIN WO CON, 06/06/2018, 18:51. FINDINGS: Image quality: Excellent. CSF spaces: Basal cisterns are patent. No extra-axial fluid collections. Ventricles are normal in size and shape. Brain: Again noted are cortical calcifications in frontal lobes bilaterally. There is diffuse encephalomalacia in frontal lobes bilaterally, unchanged. No midline shift. No intracranial masses or hemorrhage. Sainz-white matter interface is normal. Skull and face: Left frontal craniotomy. Calvarium and visualized facial bones are intact, without suspicious lesions. There is a right periorbital and premaxillary soft tissue edema consistent with contusion. Sinuses: Visualized sinuses and mastoids are clear. IMPRESSION: 1. No acute intracranial abnormalities. 2. Stable postsurgical and postradiation changes in frontal lobes bilaterally. 3. Right preorbital and perimuscular soft tissue torsion. Dictated by: Mike Zamora M.D. on 12/08/2018 at 21:34 Approved by: Mike Zamora M.D. on 12/08/2018 at 21:41
--- NOTE | 2018-12-08 20:37 | DI.RAD.S_ITS ---
PROCEDURE: XR CHEST 1V INDICATIONS: trauma TECHNIQUE: One view of the chest was acquired. COMPARISON: [facility], CT, CT CERVICAL SPINE WO CON, 12/08/2018, 20:39. [facility], CR, XR CHEST 1V, 06/06/2018, 18:51. FINDINGS: Surgical changes and devices: None. Lungs and pleura: Lungs are most small cluster muscular congestion. There is mild right hemidiaphragm elevation. Left basilar opacities most likely atelectasis. No pleural effusions or pneumothorax. Mediastinum: Mediastinal contours appear normal. Heart size is normal. Bones and chest wall: No suspicious bony lesions. Overlying soft tissues appear unremarkable. IMPRESSION: Shallow inspiration results in vascular crowding. There is left basilar atelectasis. Dictated by: Mike Zamora M.D. on 12/08/2018 at 21:26 Approved by: Mike Zamora M.D. on 12/08/2018 at 21:28
--- NOTE | 2018-12-08 20:37 | DI.RAD.S_ITS ---
PROCEDURE: XR PELVIS 1-2V INDICATIONS: trauma TECHNIQUE: 1 view(s) of the pelvis acquired. COMPARISON: [facility], CT, CT ABDOMEN PELVIS W CON, 12/23/2017, 11:35. FINDINGS: Bones: No fractures or dislocations. No suspicious bony lesions. Soft tissues: Visualized bowel gas pattern is normal. No suspicious soft tissue calcifications. There is a nerve stimulator and sacrum. Heterotopic ossification over the left greater trochanter may be secondary to bursitis. IMPRESSION: No fractures or dislocation. Dictated by: Mike Zamora M.D. on 12/08/2018 at 21:29 Approved by: Mike Zamora M.D. on 12/08/2018 at 21:30
--- NOTE | 2018-12-08 20:40 | ED_ITS ---
HPI - Fall General Chief Complaint: Fall Stated Complaint: Fall/ Found down Time Seen by Provider: 12/08/18 20:36 Source: patient and EMS Mode of arrival: EMS Limitations: no limitations History of Present Illness HPI Narrative: 58-year-old female nonsmoker with history of diabetes, meningioma, cognitive dysfunction presents by EMS for evaluation of an unwitnessed fall with obvious facial and head injury. The patient lives at a local longterm facility and has had significant diarrhea for the past day or 2. She is frequently incontinent of urine but denies any change in her a urinary sensation. She denies loss of consciousness but does not know how she ended up on the ground and does not know how long she was there. She has obvious injury to the right side of her face with significant swelling around her right eye. She denies any neck or back pain, she denies hip, knee, ankle foot or upper extremity pain. MD complaint: fall Fall from: out of bed Fall witnessed: no Place fall occurred: home Loss of consciousness: unsure Prolonged down time: unclear Symptoms prior to fall: none Location of injury: head and face Associated symptoms (after fall): headache Related Data Home Medications Medication Instructions Recorded Confirmed aspirin 81 mg PO DAILY 12/23/17 07/04/18 citalopram 20 mg PO DAILY 12/23/17 07/04/18 magnesium oxide 400 mg PO DAILY 12/23/17 07/04/18 pen needle, diabetic 32 gauge x #100 each 01/07/18 07/04/18 5/32 pen needle,diabetic dual safety 30 #100 each 01/07/18 07/04/18 gauge x 3/16 Previous Rx's Medication Instructions Recorded cholecalciferol (vitamin D3) 1,000 1,000 unit PO DAILY #90 cap 03/04/18 unit capsule acetaminophen 325 mg tablet 650 mg PO Q4H PRN #90 tab 05/29/18 melatonin 3 mg tablet 6 mg PO BEDTIME #90 tab 05/29/18 midodrine 5 mg tablet 5 mg PO TID #90 tab 05/29/18 ondansetron HCl 4 mg tablet 4 mg PO Q6H PRN #30 tab 05/29/18 simvastatin 20 mg tablet 20 mg PO QPM #90 tab 05/29/18 tolterodine ER 4 mg 4 mg PO DAILY #90 cap 05/29/18 capsule,extended release 24 hr loratadine [Claritin] 10 mg PO DAILY #30 tab 06/01/18 meclizine 25 mg PO BID-TID PRN #10 tab 06/07/18 dexamethasone 2 mg tablet 2 mg PO BID #90 tab 07/04/18 oxycodone-acetaminophen 5 mg-325 1 tab PO BEDTIME PRN #30 tab 07/14/18 mg tablet insulin glargine (U-100) 100 See Rx Instructions SUBCUT BID #30 07/24/18 unit/mL (3 mL) subcutaneous pen ml glipizide 5 mg tablet 5 mg PO BID #60 tab 09/01/18 folic acid 400 mcg tablet 0.4 mg PO QPM #90 tab 10/06/18 loperamide 2 mg capsule 2 mg PO Q2-4H PRN #60 cap 10/17/18 ibuprofen 400 mg tablet 400 mg PO BID #60 tab 10/24/18 metformin 1,000 mg tablet 1,000 mg PO BID #90 tab 11/04/18 nystatin 100,000 unit/gram topical 1 applictn TOP DAILY #30 gram 11/07/18 powder hydrocortisone 1 % topical cream 1 applictn TOP Q6H PRN #28 gram 11/18/18 pen needle, diabetic 30 gauge x #100 each 11/20/1809/18 furosemide 40 mg tablet 40 mg PO .COMPLEX #60 tab 11/21/18 omeprazole 20 mg capsule,delayed 20 mg PO BID #90 cap 11/28/18 release Fish Oil - 1000mg #90 each 12/02/18 potassium chloride ER 10 mEq 30 meq PO DAILY #90 tab 12/08/18 tablet,extended release Allergies Allergy/AdvReac Type Severity Reaction Status Date / Time adhesive tape Allergy Unknown Verified 07/04/18 14:11 escitalopram Allergy Unknown Verified 07/04/18 14:11 lamotrigine Allergy Unknown Verified 07/04/18 14:11 levetiracetam Allergy Unknown Verified 07/04/18 14:11 Penicillins Allergy Unknown Verified 07/04/18 14:11 silicone Allergy Unknown Verified 07/04/18 14:11 zonisamide Allergy Unknown Verified 07/04/18 14:11 Exam Narrative Exam Narrative: GENERAL: 58-year-old female appears stated age. Chronically ill and significantly weak. Large amount of foul smelling stool in her brief HEAD: Significant swelling and ecchymosis to right side of face, overlying right zygoma and affecting lower lid. No obvious depressed skull fracture. EYES: Immediately upon arrival I attempted pulling back right-sided eyelid but swelling was already so significant that I was unable to perform an ocular exam on the right side. L Pupils equal round and reactive. Extraocular motions intact. No scleral icterus. No injection or drainage. ENT: Nose without bleeding, purulent drainage or septal hematoma. Throat without erythema, tonsillar hypertrophy or exudate. Uvula midline. Airway patent. NECK: Trachea midline. No JVD or lymphadenopathy. Supple, nontender, no meningeal signs. CARDIOVASCULAR: Regular rate and rhythm without murmurs, gallops, or rubs. RESPIRATORY: Clear to auscultation. Breath sounds equal bilaterally. No wheezes, rales, or rhonchi. GASTROINTESTINAL: Abdomen soft, non-tender, nondistended. No hepato-splenome alexander, or palpable masses. No guarding. EXTREMITIES: No clubbing, cyanosis, or edema. No joint tenderness, effusion, or edema noted. BACK: Nontender without deformity or crepitance. No flank tenderness. NEURO: AOx3. SKIN: No rash or erythema. Initial Vital Signs Initial Vital Signs: Vital Signs Pulse Rate 110 H 12/08/18 20:34 Respiratory Rate 16 12/08/18 20:34 Blood Pressure 145/89 H 12/08/18 20:34 Pulse Oximetry 94 12/08/18 20:34 ON LICENSE OF [facility] Social History marital status: number of children: 3 lives independently: Yes caregiver/support person: Yes housing: assisted living facility pets and animals: No education level: high school occupational status: disabled Previous occupational history: [employer] in [place] [employer]: None leisure activities: games (Bingo) and other (Movies, TV) Smoking Status: Former smoker Tobacco: How many years used: 2 Smokeless tobacco user: other (Cigarettes) quit status: quit date established (2010) second hand exposure: No alcohol intake: never substance use type: does not use Course Orders Ordered: ED Orders 12/08/18 20:30 Basic Metabolic Panel Stat Complete Blood Count AUTO DIFF Stat Phenytoin / Dilantin Stat Prolactin Stat Prothrombin Time INR Stat Troponin & CK Cardiac Panel Stat 12/08/18 20:36 CT cervical spine wo con Stat CT facial bones wo con Stat CT head/brain wo con Stat 12/08/18 20:37 XR chest 1V Stat XR pelvis 1-2V Stat 12/08/18 21:30 Lactate (Lactic Acid) Stat 12/09/18 02:10 UA Complete [Urinalysis and Microscopic] Stat 12/09/18 03:59 Phenytoin / Dilantin Stat Prolactin Stat Sodium Chloride (Normal Saline 0.9%) 1,000 mls @ 125 mls/hr IV BOLUS ONE Stop: 12/09/18 08:18 Discontinued Medications Sodium Chloride (Normal Saline 0.9%) 500 mls @ 1,000 mls/hr IV BOLUS ONE Stop: 12/08/18 22:24 Last Admin: 12/08/18 23:07 Dose: Not Given Sodium Chloride (Normal Saline 0.9%) 1,000 mls @ 1,000 mls/hr IV BOLUS ONE Stop: 12/08/18 23:49 Last Infusion: 12/08/18 23:11 Dose: 0 mls/hr Admin: 12/08/18 21:55 Dose: 1,000 mls/hr Vital Signs - 8 hr 12/08/18 20:34 12/08/18 21:00 12/08/18 21:15 Pulse Rate 110 H 105 H 105 H Respiratory Rate 16 23 17 Blood Pressure 145/89 H Blood Pressure [Left Arm] 130/79 143/93 H Pulse Oximetry 94 94 95 12/08/18 21:45 12/08/18 22:07 12/08/18 22:15 Pulse Rate 104 H 102 H 100 H Respiratory Rate 16 16 16 Blood Pressure Blood Pressure [Left Arm] 148/82 H 146/86 H 146/79 H Pulse Oximetry 96 95 97 12/08/18 22:30 12/08/18 23:00 12/08/18 23:15 Pulse Rate 100 H 97 H 98 H Respiratory Rate 17 17 18 Blood Pressure Blood Pressure [Left Arm] 149/82 H 147/78 H 126/70 Pulse Oximetry 97 97 97 12/08/18 23:30 12/09/18 00:00 12/09/18 00:15 Pulse Rate 97 H 101 H 99 H Respiratory Rate 16 18 17 Blood Pressure Blood Pressure [Left Arm] 132/77 129/81 123/71 Pulse Oximetry 97 97 97 12/09/18 00:30 12/09/18 00:45 12/09/18 01:15 Pulse Rate 98 H 103 H 96 H Respiratory Rate 17 18 15 Blood Pressure Blood Pressure [Left Arm] 135/74 99/74 120/74 Pulse Oximetry 98 97 96 12/09/18 01:30 12/09/18 01:36 12/09/18 01:45 Pulse Rate 97 H 97 H 96 H Respiratory Rate 16 15 16 Blood Pressure Blood Pressure [Left Arm] 104/70 104/70 117/70 Pulse Oximetry 95 95 95 12/09/18 02:00 12/09/18 02:15 12/09/18 02:30 Pulse Rate 96 H 96 H 94 H Respiratory Rate 15 15 17 Blood Pressure Blood Pressure [Left Arm] 113/74 130/70 118/61 Pulse Oximetry 96 97 97 12/09/18 03:00 12/09/18 03:15 Pulse Rate 92 H 91 H Respiratory Rate 15 15 Blood Pressure Blood Pressure [Left Arm] 121/60 116/60 Pulse Oximetry 96 96 fall Lab Data Result diagrams: 12/08/18 20:30 12/08/18 20:30 Lab Results 12/08/18 12/08/18 12/08/18 Range/Units 20:30 20:30 20:30 WBC 10.2 (4.5-11.0) X10^3/uL RBC 3.89 L (4.0-5.2) X10^6/uL Hgb 13.1 (12.0-16.0) g/dL Hct 39.5 (36-46) % MCV 101.4 H (80-100) fL MCH 33.6 (26-34) PG MCHC 33.1 (30-36) % RDW 15.1 H (11.6-14.8) % Plt Count 218 (150-400) X10^3/uL Neut % (Auto) 74.7 (50-75) % Lymph % (Auto) 17.3 L (25-40) % White % (Auto) 6.9 (3-14) % Eos % (Auto) 0.4 L (2-4) % Baso % (Auto) 0.7 (0-2) % Neut # (Auto) 7600 H (6966-5355) /uL Lymph # (Auto) 1800 (5885-6313) /uL White # (Auto) 700 (0-900) /uL Eos # (Auto) 0 (0-450) /uL Baso # (Auto) 100 (0-100) /uL PT 10.6 (10.1-12.7) SECONDS INR 0.9 (0.9-1.3) Sodium (137-145) mmol/L Potassium (3.4-5.1) mmol/L Chloride (98-107) mmol/L Carbon Dioxide (22-32) mmol/L BUN (7-17) mg/dL Creatinine (0.52-1.04) mg/dL Estimated GFR (>60) mL/min BUN/Creatinine Ratio (6-22) Glucose (70-100) mg/dL Lactate (0.7-2.1) mmol/L Calcium (8.4-10.2) mg/dL Total Creatine Kinase 21 L (30-135) U/L CK-MB (CK-2) TNP CK-MB (CK-2) Rel Index TNP Troponin I < 0.012 (0.01-0.034) ng/mL Urine Color Urine Appearance Urine pH (4.5-8.0) Ur Specific Rule (1.000-1.035) Urine Protein (Negative) Urine Glucose (UA) (Negative) g/dL Urine Ketones (NEGATIVE) Urine Occult Blood (Negative) Urine Nitrate (Negative) Urine Bilirubin (NEGATIVE) Urine Urobilinogen (0.2) E.U./dL Ur Leukocyte Esterase (NEGATIVE) Urine RBC (0-5/HPF) Urine WBC (0-5/HPF) Ur Squamous Epith Cells (0-5/HPF) Urine Bacteria (None) Ur Culture Indicated? 12/08/18 12/08/18 12/08/18 Range/Units 20:30 21:30 23:45 WBC (4.5-11.0) X10^3/uL RBC (4.0-5.2) X10^6/uL Hgb (12.0-16.0) g/dL Hct (36-46) % MCV (80-100) fL MCH (26-34) PG MCHC (30-36) % RDW (11.6-14.8) % Plt Count (150-400) X10^3/uL Neut % (Auto) (50-75) % Lymph % (Auto) (25-40) % White % (Auto) (3-14) % Eos % (Auto) (2-4) % Baso % (Auto) (0-2) % Neut # (Auto) (8261-2075) /uL Lymph # (Auto) (7399-9735) /uL White # (Auto) (0-900) /uL Eos # (Auto) (0-450) /uL Baso # (Auto) (0-100) /uL PT (10.1-12.7) SECONDS INR (0.9-1.3) Sodium 139 (137-145) mmol/L Potassium 4.1 (3.4-5.1) mmol/L Chloride 101 (98-107) mmol/L Carbon Dioxide 24 (22-32) mmol/L BUN 30 H (7-17) mg/dL Creatinine 0.90 (0.52-1.04) mg/dL Estimated GFR > 60.0 (>60) mL/min BUN/Creatinine Ratio 33.3 H (6-22) Glucose 372 H (70-100) mg/dL Lactate 4.4 H* 3.8 H (0.7-2.1) mmol/L Calcium 9.3 (8.4-10.2) mg/dL Total Creatine Kinase (30-135) U/L CK-MB (CK-2) CK-MB (CK-2) Rel Index Troponin I (0.01-0.034) ng/mL Urine Color Urine Appearance Urine pH (4.5-8.0) Ur Specific Rule (1.000-1.035) Urine Protein (Negative) Urine Glucose (UA) (Negative) g/dL Urine Ketones (NEGATIVE) Urine Occult Blood (Negative) Urine Nitrate (Negative) Urine Bilirubin (NEGATIVE) Urine Urobilinogen (0.2) E.U./dL Ur Leukocyte Esterase (NEGATIVE) Urine RBC (0-5/HPF) Urine WBC (0-5/HPF) Ur Squamous Epith Cells (0-5/HPF) Urine Bacteria (None) Ur Culture Indicated? 12/09/18 Range/Units 02:10 WBC (4.5-11.0) X10^3/uL RBC (4.0-5.2) X10^6/uL Hgb (12.0-16.0) g/dL Hct (36-46) % MCV (80-100) fL MCH (26-34) PG MCHC (30-36) % RDW (11.6-14.8) % Plt Count (150-400) X10^3/uL Neut % (Auto) (50-75) % Lymph % (Auto) (25-40) % White % (Auto) (3-14) % Eos % (Auto) (2-4) % Baso % (Auto) (0-2) % Neut # (Auto) (8259-9562) /uL Lymph # (Auto) (9160-5208) /uL White # (Auto) (0-900) /uL Eos # (Auto) (0-450) /uL Baso # (Auto) (0-100) /uL PT (10.1-12.7) SECONDS INR (0.9-1.3) Sodium (137-145) mmol/L Potassium (3.4-5.1) mmol/L Chloride (98-107) mmol/L Carbon Dioxide (22-32) mmol/L BUN (7-17) mg/dL Creatinine (0.52-1.04) mg/dL Estimated GFR (>60) mL/min BUN/Creatinine Ratio (6-22) Glucose (70-100) mg/dL Lactate (0.7-2.1) mmol/L Calcium (8.4-10.2) mg/dL Total Creatine Kinase (30-135) U/L CK-MB (CK-2) CK-MB (CK-2) Rel Index Troponin I (0.01-0.034) ng/mL Urine Color Yellow Urine Appearance Clear Urine pH 5.0 (4.5-8.0) Ur Specific Rule 1.020 (1.000-1.035) Urine Protein Negative (Negative) Urine Glucose (UA) 2+ H (Negative) g/dL Urine Ketones Negative (NEGATIVE) Urine Occult Blood Trace-intact (Negative) Urine Nitrate Negative (Negative) Urine Bilirubin Negative (NEGATIVE) Urine Urobilinogen 0.2 (0.2) E.U./dL Ur Leukocyte Esterase Negative (NEGATIVE) Urine RBC 0-1/hpf (0-5/HPF) Urine WBC 0-1/hpf (0-5/HPF) Ur Squamous Epith Cells 0-1 /hpf (0-5/HPF) Urine Bacteria None seen (None) Ur Culture Indicated? Cult not indicated Imaging Data CT scan - head: Radiologist's impression: Breana Claudio 58 F [address] [address] [address] Scan Report Signed Patient: Breana Claudio JMR#: [id number] : [id number]:[id number] Age/Sex: 58 / FDate of Service: 12/08/18 Loc: ED Accession Number: [id number] Procedure: CT head/brain wo con Ordering Provider: Haroldo Shaw D.O. PROCEDURE: CT HEAD/BRAIN WO CON INDICATIONS: trauma TECHNIQUE: Noncontrast 4.5 mm thick angled axial sections acquired from the foramen magnum to the vertex, with coronal and sagittal reformats. For radiation dose reduction, the following was used: automated exposure control, adjustment of mA and/or kV according to patient size. COMPARISON: [facility], MR, MR BRAIN WITH/WITHOUT CONTRAST, 10/06/2018, 13:53. [facility], MR, MR BRAIN WITH/WITHOUT CONTRAST, 02/05/2018, 13:52. [facility], MR, MR BRAIN WITH/WITHOUT CONTRAST, 05/20/2018, 11:37. [facility], CT, CT HEAD/BRAIN WO CON, 06/06/2018, 18:51. FINDINGS: Image quality: Excellent. CSF spaces: Basal cisterns are patent. No extra-axial fluid collections. Ventricles are normal in size and shape. Brain: Again noted are cortical calcifications in frontal lobes bilaterally. There is diffuse encephalomalacia in frontal lobes bilaterally, unchanged. No midline shift. No intracranial masses or hemorrhage. Sainz-white matter interface is normal. Skull and face: Left frontal craniotomy. Calvarium and visualized facial bones are intact, without suspicious lesions. There is a right periorbital and premaxillary soft tissue edema consistent with contusion. Sinuses: Visualized sinuses and mastoids are clear. IMPRESSION: 1. No acute intracranial abnormalities. 2. Stable postsurgical and postradiation changes in frontal lobes bilaterally. 3. Right preorbital and perimuscular soft tissue torsion. Dictated by: Mike Zamora M.D. on 12/08/2018 at 21:34 Approved by: Mike Zamora M.D. on 12/08/2018 at 21:[address]: Radiologist's impression: [address] [address] [address] Scan Report Signed Patient: Breana Claudio JMR#: [id number] : [id number]:[id number] Age/Sex: 58 / FDate of Service: 12/08/18 Loc: ED Accession Number: [id number] Procedure: CT facial bones wo con Ordering Provider: Haroldo Shaw D.O. PROCEDURE: CT FACIAL BONES WO CON INDICATIONS: fall from bed, significant facial pain and swelling TECHNIQUE: Noncontrast 2.5 mm thick axial images acquired from the mandible through the frontal sinuses, with coronal and sagittal reformatting. For radiation dose reduction, the following was used: automated exposure control, adjustment of mA and/or kV according to patient size. COMPARISON: None. FINDINGS: Image quality: Excellent. Bones and teeth: Orbital dangelo are intact. Sinus dangelo show no fracture or deformity. Nasal bones and septum are intact. Visualized portions of the mandible demonstrate no fractures or subluxation. Zygomatic arches are intact. Pterygoid plates are intact. Visualized portions of the skull base and auditory canals are intact. Sinuses: Paranasal sinuses are aerated, without fluid levels, mucosal thickening, or mucoceles. Mastoid air cells are aerated. Soft tissues: There is soft tissue contusion in the right preorbital/pre maxillary area with subcutaneous hematoma and emphysema. No enlarged lymph nodes. Vascular: Visualized vascular structures appear normal in the absence of contrast. Bony vascular foramina and canals are intact. IMPRESSION: 1. No facial bone fracture is identified. 2. Right preorbital/premaxillary soft tissue contusion with subcutaneous hematoma and emphysema. Dictated by: Mike Zamora M.D. on 12/08/2018 at 21:41 Approved by: Mike Zamora M.D. on 12/08/2018 at 21:[address]: Radiologist's impression: [address] [address] [address] Scan Report Signed Patient: Breana Claudio JMR#: [id number] : [id number]:[id number] Age/Sex: 58 / FDate of Service: 12/08/18 Loc: ED Accession Number: [id number] Procedure: CT cervical spine wo con Ordering Provider: Haroldo Shaw D.O. PROCEDURE: CT CERVICAL SPINE WO CON INDICATIONS: fall from bed TECHNIQUE: Noncontrast 3 mm thick sections acquired from the skull base to the T4 level. Sagittal and coronal reformats were then constructed. For radiation dose reduction, the following was used: automated exposure control, adjustment of mA and/or kV according to patient size. COMPARISON: None. FINDINGS: Image quality: Excellent. Bones: No fractures or dislocations. There is no degenerative disease at C5-C6 and C6-C7. Bilateral facet arthropathy is present, most pronounced at C3-C4 on the left. Visualized superior ribs are intact. Soft tissues: Prevertebral soft tissues are normal in thickness. No paravertebral hematomas. No apical pneumothoraces. Bibasilar atelectasis. There is right facial soft tissue contusion. IMPRESSION: 1. No fractures. 2. Degenerative changes in cervical spine. 3. Bibasilar atelectasis. Dictated by: Mike Zamora M.D. on 12/08/2018 at 21:53 Approved by: Mike Zamora M.D. on 12/08/2018 at 21:56 Pelvis Xray: Radiologist's impression: [place] [address] XRay Report Signed Patient: Breana Claudio R#: [id number] : 1At:[id number] Age/Sex: 58 / FDate of Service: 12/08/18 Loc: ED Accession Number: [id number] Procedure: XR pelvis 1-2V Ordering Provider: Haroldo Shaw D.O. PROCEDURE: XR PELVIS 1-2V INDICATIONS: trauma TECHNIQUE: 1 view(s) of the pelvis acquired. COMPARISON: [facility], CT, CT ABDOMEN PELVIS W CON, 12/23/2017, 11:35. FINDINGS: Bones: No fractures or dislocations. No suspicious bony lesions. Soft tissues: Visualized bowel gas pattern is normal. No suspicious soft tissue calcifications. There is a nerve stimulator and sacrum. Heterotopic ossification over the left greater trochanter may be secondary to bursitis. IMPRESSION: No fractures or dislocation. Dictated by: Mike Zamora M.D. on 12/08/2018 at 21:29 Approved by: Mike Zamora M.D. on 12/08/2018 at 21:30 CXR: Radiologist's impression: [address] [address] XRay Report Signed Patient: Breana Claudio JMR#: [id number] : [id number]:[id number] Age/Sex: 58 / FDate of Service: 12/08/18 Loc: ED Accession Number: [id number] Procedure: XR chest 1V Ordering Provider: Haroldo Shaw D.O. PROCEDURE: XR CHEST 1V INDICATIONS: trauma TECHNIQUE: One view of the chest was acquired. COMPARISON: [facility], CT, CT CERVICAL SPINE WO CON, 12/08/2018, 20:39. [facility], CR, XR CHEST 1V, 06/06/2018, 18:51. FINDINGS: Surgical changes and devices: None. Lungs and pleura: Lungs are most small cluster muscular congestion. There is mild right hemidiaphragm elevation. Left basilar opacities most likely atelectasis. No pleural effusions or pneumothorax. Mediastinum: Mediastinal contours appear normal. Heart size is normal. Bones and chest wall: No suspicious bony lesions. Overlying soft tissues appear unremarkable. IMPRESSION: Shallow inspiration results in vascular crowding. There is left basilar atelectasis. Dictated by: Mike Zamora M.D. on 12/08/2018 at 21:26 Approved by: Mike Zamora M.D. on 12/08/2018 at 21:28 [facility] Narrative Medical decision making narrative: Chronically ill patient with prolonged time on the ground after a fall due to an unknown cause. Significant right-sided fac ial injury with contusion in the absence of any fractures. Multiple loose stools in the department and clinically dehydrated may be contributing to patient's weakness, there is the possibility of a breakthrough seizure having contributed. Patient does have a history of subtherapeutic Dilantin; last level in the fall was normal. Critically elevated lactate responded to fluids and has trended downward. This is not likely due to infection, patient has had no fever, no elevated white blood cells. Discharge Plan Departure Patient Disposition: Admitted As Inpatient Clinical Impression: Weakness, Acute dehydration, High serum lactate Diarrhea Qualifiers: Diarrhea type: unspecified type Qualified Code(s): R19.7 - Diarrhea, unspecified Contusion of face Qualifiers: Encounter type: initial encounter Qualified Code(s): S00.83XA - Contusion of other part of head, initial encounter Fall Qualifiers: Encounter type: initial encounter Qualified Code(s): W19.XXXA - Unspecified fall, initial encounter Admit Date/Time: 12/09/18 03:57 Admit Provider: Naveen Vaughn
[2018-12-08 20:47] LABS: Add Manual Diff / Slide Review NO; Basophils Absolute Auto 100 /uL (0-100); Basophils Percent Auto 0.7 % (0-2); Eosinophils Absolute Auto 0 /uL (0-450); Eosinophils Percent Auto 0.4 % (2-4); Hematocrit 39.5 % (36-46); Hemoglobin 13.1 g/dL (12.0-16.0); Lymphocytes Absolute Auto 1800 /uL (1100-4500); Lymphocytes Percent Auto 17.3 % (25-40); Mean Corpuscular HGB Conc 33.1 % (30-36); Mean Corpuscular Hemoglobin 33.6 PG (26-34); Mean Corpuscular Volume 101.4 fL (80-100); Monocytes Absolute Auto 700 /uL (0-900); Monocytes Percent Auto 6.9 % (3-14); Neutrophils Absolute Auto 7600 /uL (1500-7000); Neutrophils Percent Auto 74.7 % (50-75); Platelet Count 218 X10^3/uL (150-400); Red Blood Cell Count 3.89 X10^6/uL (4.0-5.2); Red Cell Distribution Width 15.1 % (11.6-14.8); White Blood Cell Count 10.2 X10^3/uL (4.5-11.0)
[2018-12-08 20:56] LABS: INR 0.9 (0.9-1.3); Prothrombin Time 10.6 SECONDS (10.1-12.7)
[2018-12-08 20:59] LABS: Creatine Kinase 21 U/L (30-135)
[2018-12-08 21:12] LABS: Troponin I < 0.012 ng/mL (0.01-0.034)
--- NOTE | 2018-12-08 21:20 | PC.NURSE ---
patient has right eye and right cheek swelling and bruising. small abrasion to the right cheek with bruising and swelling. provider aware and no new orders at this time.
[2018-12-08 21:23] LABS: BUN Creatinine Ratio 33.3 (6-22); Blood Urea Nitrogen 30 mg/dL (7-17); Calcium 9.3 mg/dL (8.4-10.2); Carbon Dioxide 24 mmol/L (22-32); Chloride 101 mmol/L (98-107); Estimated Glomerular Filt Rate > 60.0 mL/min (>60); Glucose 372 mg/dL (70-100); HEMOLYSIS 24 (0-50); Potassium 4.1 mmol/L (3.4-5.1); Sodium 139 mmol/L (137-145)
[2018-12-08 21:51] LABS: Lactate (Lactic Acid) 4.4 mmol/L (0.7-2.1)
[2018-12-08] MEDS: SODIUM CHLORIDE 0.9% 1,000 ML 1000 ML IV (21:55)
[2018-12-08 23:35] LABS: Reflexed Lactate in 2 Hours Y
[2018-12-09] VITALS (21 sets, daily range): BP systolic 99–146; BP diastolic 60–89; PULSE 84–105; RESP 15–23; TEMP 36.3–37.2; O2SAT 94–98; BMI 47.8
[2018-12-09 00:01] LABS: Lactate 2HR (Lactic Acid Rflx) 3.8 mmol/L (0.7-2.1)
[2018-12-09] MEDS: SODIUM CHLORIDE 0.9% 1,000 ML 125 ML IV (00:19)
--- NOTE | 2018-12-09 02:30 | PC.NURSE ---
hernandez placed per provider. hernandez discontinued due to patient allergy to silicone. patient denies any chest pain or shortness of breath. patient resting with eyes closed. provider aware and no new orders at this time.
[2018-12-09 02:45] LABS: Bacteria Urine None Seen
[2018-12-09 02:47] LABS: Appearance Urine UA CLEAR; Bilirubin Urine UA NEGATIVE (NEGATIVE); Color Urine UA YELLOW; Glucose Urine UA 2+ g/dL (Negative); Ketones Urine UA NEGATIVE (NEGATIVE); Leukocyte Esterase Urine UA NEGATIVE (NEGATIVE); Nitrite Urine UA NEGATIVE (Negative); Occult Blood Urine UA TRACE-INTACT (Negative); Protein Urine UA NEGATIVE (Negative); Urobilinogen Urine UA 0.2 E.U./dL (0.2)
[2018-12-09 03:00] LABS: Culture Indicated Urine Cult Not Indicated; RBC Urine 0-1/HPF (0-5/HPF); Squamous Epithelial Cell Urine 0-1 /HPF (0-5/HPF); WBC Urine 0-1/HPF (0-5/HPF)
[2018-12-09 04:36] LABS: Phenytoin / Dilantin < 3.0 ug/mL (10-20)
[2018-12-09] MEDS: SODIUM CHLORIDE 0.9% 1,000 ML 100 ML IV (05:16)
[2018-12-09 06:09] LABS: Add Manual Diff / Slide Review NO; Basophils Absolute Auto 100 /uL (0-100); Basophils Percent Auto 0.9 % (0-2); Eosinophils Absolute Auto 0 /uL (0-450); Eosinophils Percent Auto 0.5 % (2-4); Hematocrit 36.2 % (36-46); Lymphocytes Absolute Auto 1700 /uL (1100-4500); Lymphocytes Percent Auto 17.9 % (25-40); Mean Corpuscular HGB Conc 33.1 % (30-36); Mean Corpuscular Hemoglobin 33.1 PG (26-34); Mean Corpuscular Volume 100.2 fL (80-100); Monocytes Absolute Auto 800 /uL (0-900); Monocytes Percent Auto 8.2 % (3-14); Neutrophils Absolute Auto 6700 /uL (1500-7000); Neutrophils Percent Auto 72.5 % (50-75); Platelet Count 189 X10^3/uL (150-400); Red Blood Cell Count 3.61 X10^6/uL (4.0-5.2); Red Cell Distribution Width 14.8 % (11.6-14.8); White Blood Cell Count 9.2 X10^3/uL (4.5-11.0)
[2018-12-09 06:18] LABS: Lactate (Lactic Acid) 3.2 mmol/L (0.7-2.1)
[2018-12-09 06:19] LABS: Alanine Aminotransferase 149 IU/L (9-52); Albumin 3.3 g/dL (3.5-5.0); Albumin Globulin Ratio 1.3 (1.0-2.8); Alkaline Phosphatase 166 U/L (38-126); Aspartate Aminotransferase 109 IU/L (14-36); BUN Creatinine Ratio 34.3 (6-22); Bilirubin Total 0.4 mg/dL (0.2-1.3); Blood Urea Nitrogen 24 mg/dL (7-17); Calcium 8.9 mg/dL (8.4-10.2); Carbon Dioxide 29 mmol/L (22-32); Chloride 108 mmol/L (98-107); Estimated Glomerular Filt Rate > 60.0 mL/min (>60); Globulin 2.5 g/dL (1.7-4.1); Glucose 143 mg/dL (70-100); HEMOLYSIS < 15 (0-50); Potassium 3.6 mmol/L (3.4-5.1); Sodium 143 mmol/L (137-145); Total Protein 5.8 g/dL (6.3-8.2)
--- NOTE | 2018-12-09 06:48 | DI.ECHO.S_ITS ---
[facility]---------+ [facility] +---------+ : : [address] [place] : : : : [id number] : : : : Phone: [phone] Echocardiogram Report + + :Name: RUPERT BRENNAN Study Date: 12/09/2018 Height: 65 in : :[facility] Exam Location: [facility] Weight: 287 lb : : Gender: Female BSA: 2.3 m2 : :: 1960 Age: 58 yrs BP: 143/86 mmHg: :Reason For Study: EDEMA : : Performed By: Seb Ricketts : :Referring: RENETTA BOURGEOIS R : + + Interpretation Summary A 2D and Doppler color echocardiogram was performed to assess heart function in a patient with the diagnosis of edema. The patient ended the exam shortly after it began due to discomfort caused by probe pressure. Only parasternal long axis view was captured. The left ventricle is normal in size. The left ventricular ejection fraction is grossly normal. Aortic valve and mitral valve appears to be grossly normal. Procedure: A 2D and Doppler color echocardiogram was performed to assess heart function in a patient with the diagnosis of edema. The patient ended the exam shortly after it began due to discomfort caused by probe pressure. The study quality was technically adequate. Comparison is made with the echocardiogram of 08/14/17. The patient was in normal sinus rhythm during the exam. Left Ventricle: The left ventricle is normal in size. Proximal septal thickening is noted. The left ventricular ejection fraction is grossly normal. Mitral Valve: The mitral valve is grossly normal. Aortic Valve: The aortic valve opens well. MMode/2D Measurements & Calculations LVIDd: 3.3 cm LVIDs: 2.2 cm FS: 32.9 % IVSd: 0.75 cm LVPWd: 0.67 cm LV stephenson. diameter/BSA (cm/m^2): 1.4 LV sys. diameter/BSA (cm/m^2): 0.95 Reading Physician:12:10 PM
--- NOTE | 2018-12-09 06:50 | PM.HP.1 ---
History of Present Illness Date Patient Seen: 12/09/18 Time Patient Seen: 06:55 Chief complaint: Fall/ Found down Narrative: Unfortunate 58-year-old female long-term resident of a local assisted care facility ([facility]) who was found down at that facility and transported to the [facility] Emergency Department. She is status post surgery radiation and chemotherapy for oligodendroglioma of the brain diagnosed in 2011. She has cognitive dysfunction on the basis of this. She has long-standing seizure disorder on the bases of treatments for her brain tumor. Uncertain as to when patient's last known well was. She was found down covered in feces and urine and an altered level of consciousness. She was transported to the hospital in that condition. Workup in the emergency department was relatively unremarkable. Patient seem confused disoriented confabulating certain things that are clearly not true such as recent overseas travel. In the end it was felt more likely than not the patient had experienced seizure with resultant postictal state and is admitted for further evaluation. Patient shows evidence of significant trauma to the right side of her face based on swelling and early changes consistent with bruising they are present. However CT evaluation failed to reveal any evidence of any serious fractures or intracranial issues. No serious trauma actually found despite overlying skin edema and changes. Patient has had trouble with seizures although not recently. Had issues with Dilantin which she was on for a long time but seemed to cause persistent dizziness and nausea and vomiting. Patient had her Dilantin dose slowly decreased and eventually discontinued because of her persistent symptoms and basically her demands to be taken off the medication. She did well without that and during that taper without evidence of recurrent seizure issues that were obvious anyway. She was seen by a new neurologist in August of this year, Dr. ochoa in [place]. He started her on Keppra, despite her reported issue with rashes and muscle aches with this. This is based on his chart note from August 21 2018, and no further details are available Patient also has type 2 diabetes requiring insulin. This has been complicated by her need to continue on dexamethasone because of her intracranial issues as per Oncology. Patient has struggled with hyperglycemia and when insulin doses were increased hypoglycemia. This is despite being in an assisted living facility where presumably her medications are controlled and her diet is controlled as well. Clearly it seems to me there is some evidence of dietary indiscretion here as well. Patient History Medical History 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, insulin dependent (Chronic ~2007) Seizure disorder (Chronic) Orthostatic hypotension (Chronic) Fecal incontinence (Chronic) GERD without esophagitis (Chronic) Cognitive dysfunction (Chronic) High serum lactate (Chronic) Depression (Chronic) Urinary incontinence (Chronic ~2015) Other and unspecified hyperlipidemia (Chronic) Anxiety (Chronic) Hearing loss (Chronic ~2016) Ovarian cyst (Chronic ~1983) Vision disorder (Chronic) Chicken pox (Resolved ~1966) Fractures (Resolved ~2017) Measles (Resolved ~1963) Surgical History H/O pelvic surgery (Inactive ~2016) Anesthesia (Resolved) History of cholecystectomy (Resolved ~1987) History of hysterectomy (Resolved ~1988) Family History Father Cancer Diabetes mellitus Hypertension Sister Hypertension Sister Cancer Grandfather Heart disease Grandmother Heart disease Social History marital status: number of children: 3 lives independently: Yes caregiver/support person: Yes housing: assisted living facility pets and animals: No education level: high school occupational status: disabled Previous occupational history: [employer] in [place] duncan/catholic: None leisure activities: games (Bingo) and other (Movies, TV) Smoking Status: Former smoker Tobacco: How many years used: 2 Smokeless tobacco user: other (Cigarettes) quit status: quit date established (2010) second hand exposure: No alcohol intake: never substance use type: does not use Family & Social History Family History Father Cancer Diabetes mellitus Hypertension Sister Hypertension Sister Cancer Grandfather Heart disease Grandmother Heart disease Social History: Prior Living Arrangements Assisted Living lives independently Yes caregiver/support person Yes Safety & Behavioral: Feels Safe in Current Yes Environment Been Physically Hurt or No Threatened By a Person Tobacco & Substance use: Smoking Status Former smoker alcohol intake never Substance Use Type does not use Meds Home Medications Medication Instructions Recorded Confirmed Type aspirin 81 mg PO DAILY 12/23/17 12/09/18 History magnesium oxide 400 mg PO DAILY 12/23/17 12/09/18 History pen needle, diabetic 32 gauge x #100 each 01/07/18 12/09/18 History 5/32 pen needle,diabetic dual safety 30 #100 each 01/07/18 12/09/18 History gauge x 3 cholecalciferol (vitamin D3) 1,000 1,000 unit PO DAILY #90 cap 03/04/18 12/09/18 Rx unit capsule acetaminophen 325 mg tablet 650 mg PO Q4H PRN #90 tab 05/29/18 12/09/18 Rx melatonin 3 mg tablet 6 mg PO BEDTIME #90 tab 05/29/18 12/09/18 Rx ondansetron HCl 4 mg tablet 4 mg PO Q6H PRN #30 tab 05/29/18 12/09/18 Rx simvastatin 20 mg tablet 20 mg PO QPM #90 tab 05/29/18 12/09/18 Rx tolterodine ER 4 mg 4 mg PO DAILY #90 cap 05/29/18 12/09/18 Rx capsule,extended release 24 hr dexamethasone 2 mg tablet 2 mg PO BID #90 tab 07/04/18 12/09/18 Rx oxycodone-acetaminophen 5 mg-325 1 tab PO BEDTIME PRN #30 tab 07/14/18 12/09/18 Rx mg tablet glipizide 5 mg tablet 5 mg PO BID #60 tab 09/01/18 12/09/18 Rx folic acid 400 mcg tablet 0.4 mg PO QPM #90 tab 10/06/18 12/09/18 Rx loperamide 2 mg capsule 2 mg PO Q2-4H PRN #60 cap 10/17/18 12/09/18 Rx ibuprofen 400 mg tablet 400 mg PO BID #60 tab 10/24/18 12/09/18 Rx metformin 1,000 mg tablet 1,000 mg PO BID #90 tab 11/04/18 12/09/18 Rx pen needle, diabetic 30 gauge x #100 each 11/20/18 12/09/18 Rx 09/18 omeprazole 20 mg capsule,delayed 20 mg PO BID #90 cap 11/28/18 12/09/18 Rx release potassium chloride ER 10 mEq 30 meq PO DAILY #90 tab 12/08/18 12/09/18 Rx tablet,extended release Robitussin Dm 5 ml PO Q4H PRN 12/09/18 12/09/18 History citalopram 20 mg tablet 20 mg PO DAILY #90 tab 12/09/18 Rx furosemide 40 mg PO DAILY 12/09/18 12/09/18 History hydrocortisone acetate 1 applic TOPICAL Q8H PRN 12/09/18 12/09/18 History insulin glargine 60 units SUBCUT QPM 12/09/18 12/09/18 History insulin glargine 70 units SUBCUT DAILY 12/09/18 12/09/18 History meclizine 25 mg PO Q6H PRN 12/09/18 12/09/18 History midodrine 5 mg tablet 5 mg PO TID #90 tab 12/09/18 Rx nystatin 1 applic TOPICAL PRN PRN 12/09/18 12/09/18 History omega 4-car-lcj-fish oil [Fish Oil] 1 cap PO DAILY 12/09/18 12/09/18 History levetiracetam 500 mg PO DAILY #30 tab 12/10/18 Rx levetiracetam 750 mg PO BEDTIME #30 tab 12/10/18 Rx Allergies Allergy/AdvReac Type Severity Reaction Status Date / Time adhesive tape Allergy Unknown Verified 07/04/18 14:11 Penicillins Allergy Unknown Verified 07/04/18 14:11 silicone Allergy Unknown Verified 07/04/18 14:11 zonisamide Allergy Unknown Verified 07/04/18 14:11 escitalopram AdvReac Unknown Verified 12/09/18 07:15 lamotrigine AdvReac Unknown Verified 12/09/18 07:15 Review of Systems Review of Systems unobtainable due to mental status Exam Vital Signs (past 8 hours): - 12/08/18 23:00 12/08/18 23:15 12/08/18 23:30 Temperature Pulse Rate 97 H 98 H 97 H Respiratory Rate 17 18 16 Blood Pressure Blood Pressure [Left Arm] 147/78 H 126/70 132/77 Pulse Oximetry 97 97 97 12/09/18 00:00 12/09/18 00:15 12/09/18 00:30 Temperature Pulse Rate 101 H 99 H 98 H Respiratory Rate 18 17 17 Blood Pressure Blood Pressure [Left Arm] 129/81 123/71 135/74 Pulse Oximetry 97 97 98 12/09/18 00:45 12/09/18 01:15 12/09/18 01:30 Temperature Pulse Rate 103 H 96 H 97 H Respiratory Rate 18 15 16 Blood Pressure Blood Pressure [Left Arm] 99/74 120/74 104/70 Pulse Oximetry 97 96 95 12/09/18 01:36 12/09/18 01:45 12/09/18 02:00 Temperature Pulse Rate 97 H 96 H 96 H Respiratory Rate 15 16 15 Blood Pressure Blood Pressure [Left Arm] 104/70 117/70 113/74 Pulse Oximetry 95 95 96 12/09/18 02:15 12/09/18 02:30 12/09/18 03:00 Temperature Pulse Rate 96 H 94 H 92 H Respiratory Rate 15 17 15 Blood Pressure Blood Pressure [Left Arm] 130/70 118/61 121/60 Pulse Oximetry 97 97 96 12/09/18 03:15 12/09/18 04:00 12/09/18 04:30 Temperature Pulse Rate 91 H 95 H 92 H Respiratory Rate 15 16 15 Blood Pressure Blood Pressure [Left Arm] 116/60 114/66 107/69 Pulse Oximetry 96 97 95 12/09/18 05:15 Temperature 99.0 F Pulse Rate 96 H Respiratory Rate 23 Blood Pressure 146/89 H Blood Pressure [Left Arm] Pulse Oximetry 97 Oxygen Delivery Method Room Air Narrative Exam Narrative: Older than stated age appearing slightly obese with obvious question night appearing female HEENT-significant swelling right zygomatic arch and right eye with inability to open right eye. Bruising present over the right eyelid Neck-no bruits Lungs-good breath sounds clear Heart-regular rate and rhythm no murmur Abdomen-benign Neuro-and oriented times 1 to 1-2 (person time and sometimes place), moves all 4 extremities, follows simple 1 step commands Extremities-3+ chronic pitting edema pretibially bilaterally Objective Labs Result Diagrams: 12/09/18 06:00 12/09/18 06:00 Labs: Laboratory Results - last 24 hr 12/08/18 12/08/18 12/08/18 20:30 20:30 20:30 WBC 10.2 RBC 3.89 L Hgb 13.1 Hct 39.5 MCV 101.4 H MCH 33.6 MCHC 33.1 RDW 15.1 H Plt Count 218 Neut % (Auto) 74.7 Lymph % (Auto) 17.3 L [place] % (Auto) 6.9 Eos % (Auto) 0.4 L Baso % (Auto) 0.7 Neut # (Auto) 7600 H Lymph # (Auto) 1800 [place] # (Auto) 700 Eos # (Auto) 0 Baso # (Auto) 100 PT 10.6 INR 0.9 Sodium Potassium Chloride Carbon Dioxide BUN Creatinine Estimated GFR BUN/Creatinine Ratio Glucose Lactate Calcium Total Bilirubin AST ALT Alkaline Phosphatase Total Creatine Kinase 21 L CK-MB (CK-2) TNP CK-MB (CK-2) Rel Index TNP Troponin I < 0.012 Total Protein Albumin Globulin Albumin/Globulin Ratio Prolactin 28.0 H Urine Color Urine Appearance Urine pH Ur Specific [place] Urine Protein Urine Glucose (UA) Urine Ketones Urine Occult Blood Urine Nitrate Urine Bilirubin Urine Urobilinogen Ur Leukocyte Esterase Urine RBC Urine WBC Ur Squamous Epith Cells Urine Bacteria Ur Culture Indicated? Phenytoin < 3.0 L 12/08/18 12/08/18 12/08/18 20:30 21:30 23:45 WBC RBC Hgb Hct MCV MCH MCHC RDW Plt Count Neut % (Auto) Lymph % (Auto) [place] % (Auto) Eos % (Auto) Baso % (Auto) Neut # (Auto) Lymph # (Auto) [place] # (Auto) Eos # (Auto) Baso # (Auto) PT INR Sodium 139 Potassium 4.1 Chloride 101 Carbon Dioxide 24 BUN 30 H Creatinine 0.90 Estimated GFR > 60.0 BUN/Creatinine Ratio 33.3 H Glucose 372 H Lactate 4.4 H* 3.8 H Calcium 9.3 Total Bilirubin AST ALT Alkaline Phosphatase Total Creatine Kinase CK-MB (CK-2) CK-MB (CK-2) Rel Index Troponin I Total Protein Albumin Globulin Albumin/Globulin Ratio Prolactin Urine Color Urine Appearance Urine pH Ur Specific [place] Urine Protein Urine Glucose (UA) Urine Ketones Urine Occult Blood Urine Nitrate Urine Bilirubin Urine Urobilinogen Ur Leukocyte Esterase Urine RBC Urine WBC Ur Squamous Epith Cells Urine Bacteria Ur Culture Indicated? Phenytoin 12/09/18 12/09/18 12/09/18 02:10 06:00 06:00 WBC 9.2 RBC 3.61 L Hgb 12.0 Hct 36.2 MCV 100.2 H MCH 33.1 MCHC 33.1 RDW 14.8 Plt Count 189 Neut % (Auto) 72.5 Lymph % (Auto) 17.9 L [place] % (Auto) 8.2 Eos % (Auto) 0.5 L Baso % (Auto) 0.9 Neut # (Auto) 6700 Lymph # (Auto) 1700 [place] # (Auto) 800 Eos # (Auto) 0 Baso # (Auto) 100 PT INR Sodium 143 Potassium 3.6 Chloride 108 H Carbon Dioxide 29 BUN 24 H Creatinine 0.70 Estimated GFR > 60.0 BUN/Creatinine Ratio 34.3 H Glucose 143 H D Lactate Calcium 8.9 Total Bilirubin 0.4 AST 109 H ALT 149 H Alkaline Phosphatase 166 H Total Creatine Kinase CK-MB (CK-2) CK-MB (CK-2) Rel Index Troponin I Total Protein 5.8 L Albumin 3.3 L Globulin 2.5 Albumin/Globulin Ratio 1.3 Prolactin Urine Color Yellow Urine Appearance Clear Urine pH 5.0 Ur Specific [place] 1.020 Urine Protein Negative Urine Glucose (UA) 2+ H Urine Ketones Negative Urine Occult Blood Trace-intact Urine Nitrate Negative Urine Bilirubin Negative Urine Urobilinogen 0.2 Ur Leukocyte Esterase Negative Urine RBC 0-1/hpf Urine WBC 0-1/hpf Ur Squamous Epith Cells 0-1 /hpf Urine Bacteria None seen Ur Culture Indicated? Cult not indicated Phenytoin 12/09/18 06:00 WBC RBC Hgb Hct MCV MCH MCHC RDW Plt Count Neut % (Auto) Lymph % (Auto) [place] % (Auto) Eos % (Auto) Baso % (Auto) Neut # (Auto) Lymph # (Auto) [place] # (Auto) Eos # (Auto) Baso # (Auto) PT INR Sodium Potassium Chloride Carbon Dioxide BUN Creatinine Estimated GFR BUN/Creatinine Ratio Glucose Lactate 3.2 H Calcium Total Bilirubin AST ALT Alkaline Phosphatase Total Creatine Kinase CK-MB (CK-2) CK-MB (CK-2) Rel Index Troponin I Total Protein Albumin Globulin Albumin/Globulin Ratio Prolactin Urine Color Urine Appearance Urine pH Ur Specific [place] Urine Protein Urine Glucose (UA) Urine Ketones Urine Occult Blood Urine Nitrate Urine Bilirubin Urine Urobilinogen Ur Leukocyte Esterase Urine RBC Urine WBC Ur Squamous Epith Cells Urine Bacteria Ur Culture Indicated? Phenytoin Assessment & Plan Assessment & Plan narrative: 1. Presume seizure-this would explain her presentation and findings specially with loss of bowel and bladder continence her postictal confused state etc. will have to determine whether not patient has been receiving her antiepileptic medication. For now I will give her a loading dose of IV Dilantin and continue her on her Keppra. Continue with seizure precautions and expect her to slowly improve from this. Given her complicated history with her prior tumor and surgical interventions in the brain I think more advanced imaging then CT is appropriate. Patient did have MRI performed in October of this year, and given her implanted bladder stimulator we are unable to perform MRI here. Unlikely there has been some significant change. Will defer on any advanced imaging at this time. 2. Elevated lactate-no evidence of infectious etiology. Patient apparently with a history of an elevated lactate level which is documented in her chart. Do not believe this is an active infectious etiology. 3. Diabetes-will continue patient's usual dose insulin and monitor carefully here while under more controlled diet. 4. Peripheral edema-patient is struggling recently with increasing peripheral edema. I am going to order echocardiography to re-evaluate her cardiac status which thus far has not been felt to be a contributing factor 5. Weakness-I think patient deserves PT and OT evaluation prior to return to an alternate living facility. 6. VTE prophylaxis-will apply sequential compression devices. Somewhat concerned to use Lovenox given the obvious trauma on her face. 7. Code status-patient has previous expressed wishes to be a no code no heroic interventions 8. Disposition-I am uncertain as to whether patient has been receiving proper care at the current at assisted living facility where she resides. It has been next to impossible to even approach anything related to adequate blood sugar control, and her presentation in the emergency department is troubling. Will have licensed master social worker see patient for consideration of perhaps alternate living facilities perhaps an adult family home would actually be an improvement for her. No record of patient's medications was transferred with her to the hospital. Will have to send to the assisted living facility to obtain that. I am uncertain as to current doses of her anti epileptic medication as well as her insulin. Changes seem to been made since I saw her last in the clinic in July.
--- NOTE | 2018-12-09 07:04 | P.HP_ITS ---
History of Present Illness Date Patient Seen: 12/09/18 Time Patient Seen: 06:55 Chief complaint: Fall/ Found down Narrative: Unfortunate 58-year-old female long-term resident of a local assisted care facility ([facility]) who was found down at that facility and transported to the [facility] Emergency Department. She is status post surgery radiation and chemotherapy for oligodendroglioma of the brain diagnosed in 2011. She has cognitive dysfunction on the basis of this. She has long- standing seizure disorder on the bases of treatments for her brain tumor. Uncertain as to when patient's last known well was. She was found down covered in feces and urine and an altered level of consciousness. She was transported to the hospital in that condition. Workup in the emergency department was relatively unremarkable. Patient seem confused disoriented confabulating cert ain things that are clearly not true such as recent overseas travel. In the end it was felt more likely than not the patient had experienced seizure with resultant postictal state and is admitted for further evaluation. Patient shows evidence of significant trauma to the right side of her face based on swelling and early changes consistent with bruising they are present. However CT evaluation failed to reveal any evidence of any serious fractures or intracranial issues. No serious trauma actually found despite overlying skin edema and changes. Patient has had trouble with seizures although not recently. Had issues with Dilantin which she was on for a long time but seemed to cause persistent dizziness and nausea and vomiting. Patient had her Dilantin dose slowly decreased and eventually discontinued because of her persistent symptoms and basically her demands to be taken off the medication. She did well without that and during that taper without evidence of recurrent seizure issues that were obvious anyway. She was seen by a new neurologist in August of this year, Dr. ochoa in [place]. He started her on Keppra, despite her reported issue with rashes and muscle aches with this. This is based on his chart note from August 21 2018, and no further details are available Patient also has type 2 diabetes requiring insulin. This has been complicated by her need to continue on dexamethasone because of her intracranial issues as per Oncology. Patient has struggled with hyperglycemia and when insulin doses were increased hypoglycemia. This is despite being in an assisted living facility where presumably her medications are controlled and her diet is controlled as well. Clearly it seems to me there is some evidence of dietary indiscretion here as well. Patient History Medical History 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, insulin dependent (Chronic ~2007) Seizure disorder (Chronic) Orthostatic hypotension (Chronic) Fecal incontinence (Chronic) GERD without esophagitis (Chronic) Cognitive dysfunction (Chronic) High serum lactate (Chronic) Depression (Chronic) Urinary incontinence (Chronic ~2015) Other and unspecified hyperlipidemia (Chronic) Anxiety (Chronic) Hearing loss (Chronic ~2016) Ovarian cyst (Chronic ~1983) Vision disorder (Chronic) Chicken pox (Resolved ~1966) Fractures (Resolved ~2017) Measles (Resolved ~1963) Surgical History H/O pelvic surgery (Inactive ~2016) Anesthesia (Resolved) History of cholecystectomy (Resolved ~1987) History of hysterectomy (Resolved ~1988) Family History Father Cancer Diabetes mellitus Hypertension Sister Hypertension Sister Cancer Grandfather Heart disease Grandmother Heart disease Social History marital status: number of children: 3 lives independently: Yes caregiver/support person: Yes housing: assisted living facility pets and animals: No education level: high school occupational status: disabled Previous occupational history: [employer] in [place] duncan/caodaism: None leisure activities: games (Bingo) and other (Movies, TV) Smoking Status: Former smoker Tobacco: How many years used: 2 Smokeless tobacco user: other (Cigarettes) quit status: quit date established (2010) second hand exposure: No alcohol intake: never substance use type: does not use Family & Social History Family History Father Cancer Diabetes mellitus Hypertension Sister Hypertension Sister Cancer Grandfather Heart disease Grandmother Heart disease Social History: Prior Living Arrangements Assisted Living lives independently Yes caregiver/support person Yes Safety & Behavioral: Feels Safe in Current Yes Environment Been Physically Hurt or No Threatened By a Person Tobacco & Substance use: Smoking Status Former smoker alcohol intake never Substance Use Type does not use Meds Home Medications Medication Instructions Recorded Confirmed Type aspirin 81 mg PO DAILY 12/23/17 12/09/18 History magnesium oxide 400 mg PO DAILY 12/23/17 12/09/18 History pen needle, diabetic 32 gauge x #100 each 01/07/18 12/09/18 History 5/32 pen needle,diabetic dual safety 30 #100 each 01/07/18 12/09/18 History gauge x 07/19 cholecalciferol (vitamin D3) 1,000 1,000 unit PO DAILY #90 cap 03/04/18 12/09/18 Rx unit capsule acetaminophen 325 mg tablet 650 mg PO Q4H PRN #90 tab 05/29/18 12/09/18 Rx melatonin 3 mg tablet 6 mg PO BEDTIME #90 tab 05/29/18 12/09/18 Rx ondansetron HCl 4 mg tablet 4 mg PO Q6H PRN #30 tab 05/29/18 12/09/18 Rx simvastatin 20 mg tablet 20 mg PO QPM #90 tab 05/29/18 12/09/18 Rx tolterodine ER 4 mg 4 mg PO DAILY #90 cap 05/29/18 12/09/18 Rx capsule,extended release 24 hr dexamethasone 2 mg tablet 2 mg PO BID #90 tab 07/04/18 12/09/18 Rx oxycodone-acetaminophen 5 mg-325 1 tab PO BEDTIME PRN #30 tab 07/14/18 12/09/18 Rx mg tablet glipizide 5 mg tablet 5 mg PO BID #60 tab 09/01/18 12/09/18 Rx folic acid 400 mcg tablet 0.4 mg PO QPM #90 tab 10/06/18 12/09/18 Rx loperamide 2 mg capsule 2 mg PO Q2-4H PRN #60 cap 10/17/18 12/09/18 Rx ibuprofen 400 mg tablet 400 mg PO BID #60 tab 10/24/18 12/09/18 Rx metformin 1,000 mg tablet 1,000 mg PO BID #90 tab 11/04/18 12/09/18 Rx pen needle, diabetic 30 gauge x #100 each 11/20/18 12/09/18 Rx 09/18 omeprazole 20 mg capsule,delayed 20 mg PO BID #90 cap 11/28/18 12/09/18 Rx release potassium chloride ER 10 mEq 30 meq PO DAILY #90 tab 12/08/18 12/09/18 Rx tablet,extended release Robitussin Dm 5 ml PO Q4H PRN 12/09/18 12/09/18 History citalopram 20 mg tablet 20 mg PO DAILY #90 tab 12/09/18 Rx furosemide 40 mg PO DAILY 12/09/18 12/09/18 History hydrocortisone acetate 1 applic TOPICAL Q8H PRN 12/09/18 12/09/18 History insulin glargine 60 units SUBCUT QPM 12/09/18 12/09/18 History insulin glargine 70 units SUBCUT DAILY 12/09/18 12/09/18 History meclizine 25 mg PO Q6H PRN 12/09/18 12/09/18 History midodrine 5 mg tablet 5 mg PO TID #90 tab 12/09/18 Rx nystatin 1 applic TOPICAL PRN PRN 12/09/18 12/09/18 History omega 5-tzp-apn-fish oil [Fish Oil] 1 cap PO DAILY 12/09/18 12/09/18 History levetiracetam 500 mg PO DAILY #30 tab 12/10/18 Rx levetiracetam 750 mg PO BEDTIME #30 tab 12/10/18 Rx Allergies Allergy/AdvReac Type Severity Reaction Status Date / Time adhesive tape Allergy Unknown Verified 07/04/18 14:11 Penicillins Allergy Unknown Verified 07/04/18 14:11 silicone Allergy Unknown Verified 07/04/18 14:11 zonisamide Allergy Unknown Verified 07/04/18 14:11 escitalopram AdvReac Unknown Verified 12/09/18 07:15 lamotrigine AdvReac Unknown Verified 12/09/18 07:15 Review of Systems Review of Systems unobtainable due to mental status Exam Vital Signs (past 8 hours): - 12/08/18 23:00 12/08/18 23:15 12/08/18 23:30 Temperature Pulse Rate 97 H 98 H 97 H Respiratory Rate 17 18 16 Blood Pressure Blood Pressure [Left Arm] 147/78 H 126/70 132/77 Pulse Oximetry 97 97 97 12/09/18 00:00 12/09/18 00:15 12/09/18 00:30 Temperature Pulse Rate 101 H 99 H 98 H Respiratory Rate 18 17 17 Blood Pressure Blood Pressure [Left Arm] 129/81 123/71 135/74 Pulse Oximetry 97 97 98 12/09/18 00:45 12/09/18 01:15 12/09/18 01:30 Temperature Pulse Rate 103 H 96 H 97 H Respiratory Rate 18 15 16 Blood Pressure Blood Pressure [Left Arm] 99/74 120/74 104/70 Pulse Oximetry 97 96 95 12/09/18 01:36 12/09/18 01:45 12/09/18 02:00 Temperature Pulse Rate 97 H 96 H 96 H Respiratory Rate 15 16 15 Blood Pressure Blood Pressure [Left Arm] 104/70 117/70 113/74 Pulse Oximetry 95 95 96 12/09/18 02:15 12/09/18 02:30 12/09/18 03:00 Temperature Pulse Rate 96 H 94 H 92 H Respiratory Rate 15 17 15 Blood Pressure Blood Pressure [Left Arm] 130/70 118/61 121/60 Pulse Oximetry 97 97 96 12/09/18 03:15 12/09/18 04:00 12/09/18 04:30 Temperature Pulse Rate 91 H 95 H 92 H Respiratory Rate 15 16 15 Blood Pressure Blood Pressure [Left Arm] 116/60 114/66 107/69 Pulse Oximetry 96 97 95 12/09/18 05:15 Temperature 99.0 F Pulse Rate 96 H Respiratory Rate 23 Blood Pressure 146/89 H Blood Pressure [Left Arm] Pulse Oximetry 97 Oxygen Delivery Method Room Air Narrative Exam Narrative: Older than stated age appearing slightly obese with obvious question night appearing female HEENT-significant swelling right zygomatic arch and right eye with inability to open right eye. Bruising present over the right eyelid Neck-no bruits Lungs-good breath sounds clear Heart-regular rate and rhythm no murmur Abdomen-benign Neuro-and oriented times 1 to 1-2 (person time and sometimes place), moves all 4 extremities, follows simple 1 step commands Extremities-3+ chronic pitting edema pretibially bilaterally Objective Labs Result Diagrams: 12/09/18 06:00 12/09/18 06:00 Labs: Laboratory Results - last 24 hr 12/08/18 12/08/18 12/08/18 20:30 20:30 20:30 WBC 10.2 RBC 3.89 L Hgb 13.1 Hct 39.5 MCV 101.4 H MCH 33.6 MCHC 33.1 RDW 15.1 H Plt Count 218 Neut % (Auto) 74.7 Lymph % (Auto) 17.3 L Collier % (Auto) 6.9 Eos % (Auto) 0.4 L Baso % (Auto) 0.7 Neut # (Auto) 7600 H Lymph # (Auto) 1800 Collier # (Auto) 700 Eos # (Auto) 0 Baso # (Auto) 100 PT 10.6 INR 0.9 Sodium Potassium Chloride Carbon Dioxide BUN Creatinine Estimated GFR BUN/Creatinine Ratio Glucose Lactate Calcium Total Bilirubin AST ALT Alkaline Phosphatase Total Creatine Kinase 21 L CK-MB (CK-2) TNP CK-MB (CK-2) Rel Index TNP Troponin I < 0.012 Total Protein Albumin Globulin Albumin/Globulin Ratio Prolactin 28.0 H Urine Color Urine Appearance Urine pH Ur Specific [place] Urine Protein Urine Glucose (UA) Urine Ketones Urine Occult Blood Urine Nitrate Urine Bilirubin Urine Urobilinogen Ur Leukocyte Esterase Urine RBC Urine WBC Ur Squamous Epith Cells Urine Bacteria Ur Culture Indicated? Phenytoin < 3.0 L 12/08/18 12/08/18 12/08/18 20:30 21:30 23:45 WBC RBC Hgb Hct MCV MCH MCHC RDW Plt Count Neut % (Auto) Lymph % (Auto) Collier % (Auto) Eos % (Auto) Baso % (Auto) Neut # (Auto) Lymph # (Auto) Collier # (Auto) Eos # (Auto) Baso # (Auto) PT INR Sodium 139 Potassium 4.1 Chloride 101 Carbon Dioxide 24 BUN 30 H Creatinine 0.90 Estimated GFR > 60.0 BUN/Creatinine Ratio 33.3 H Glucose 372 H Lactate 4.4 H* 3.8 H Calcium 9.3 Total Bilirubin AST ALT Alkaline Phosphatase Total Creatine Kinase CK-MB (CK-2) CK-MB (CK-2) Rel Index Troponin I Total Protein Albumin Globulin Albumin/Globulin Ratio Prolactin Urine Color Urine Appearance Urine pH Ur Specific [place] Urine Protein Urine Glucose (UA) Urine Ketones Urine Occult Blood Urine Nitrate Urine Bilirubin Urine Urobilinogen Ur Leukocyte Esterase Urine RBC Urine WBC Ur Squamous Epith Cells Urine Bacteria Ur Culture Indicated? Phenytoin 12/09/18 12/09/18 12/09/18 02:10 06:00 06:00 WBC 9.2 RBC 3.61 L Hgb 12.0 Hct 36.2 MCV 100.2 H MCH 33.1 MCHC 33.1 RDW 14.8 Plt Count 189 Neut % (Auto) 72.5 Lymph % (Auto) 17.9 L Collier % (Auto) 8.2 Eos % (Auto) 0.5 L Baso % (Auto) 0.9 Neut # (Auto) 6700 Lymph # (Auto) 1700 Collier # (Auto) 800 Eos # (Auto) 0 Baso # (Auto) 100 PT INR Sodium 143 Potassium 3.6 Chloride 108 H Carbon Dioxide 29 BUN 24 H Creatinine 0.70 Estimated GFR > 60.0 BUN/Creatinine Ratio 34.3 H Glucose 143 H D Lactate Calcium 8.9 Total Bilirubin 0.4 AST 109 H ALT 149 H Alkaline Phosphatase 166 H Total Creatine Kinase CK-MB (CK-2) CK-MB (CK-2) Rel Index Troponin I Total Protein 5.8 L Albumin 3.3 L Globulin 2.5 Albumin/Globulin Ratio 1.3 Prolactin Urine Color Yellow Urine Appearance Clear Urine pH 5.0 Ur Specific [place] 1.020 Urine Protein Negative Urine Glucose (UA) 2+ H Urine Ketones Negative Urine Occult Blood Trace-intact Urine Nitrate Negative Urine Bilirubin Negative Urine Urobilinogen 0.2 Ur Leukocyte Esterase Negative Urine RBC 0-1/hpf Urine WBC 0-1/hpf Ur Squamous Epith Cells 0-1 /hpf Urine Bacteria None seen Ur Culture Indicated? Cult not indicated Phenytoin 12/09/18 06:00 WBC RBC Hgb Hct MCV MCH MCHC RDW Plt Count Neut % (Auto) Lymph % (Auto) Collier % (Auto) Eos % (Auto) Baso % (Auto) Neut # (Auto) Lymph # (Auto) Collier # (Auto) Eos # (Auto) Baso # (Auto) PT INR Sodium Potassium Chloride Carbon Dioxide BUN Creatinine Estimated GFR BUN/Creatinine Ratio Glucose Lactate 3.2 H Calcium Total Bilirubin AST ALT Alkaline Phosphatase Total Creatine Kinase CK-MB (CK-2) CK-MB (CK-2) Rel Index Troponin I Total Protein Albumin Globulin Albumin/Globulin Ratio Prolactin Urine Color Urine Appearance Urine pH Ur Specific [place] Urine Protein Urine Glucose (UA) Urine Ketones Urine Occult Blood Urine Nitrate Urine Bilirubin Urine Urobilinogen Ur Leukocyte Esterase Urine RBC Urine WBC Ur Squamous Epith Cells Urine Bacteria Ur Culture Indicated? Phenytoin Assessment & Plan Assessment & Plan narrative: 1. Presume seizure-this would explain her presentation and findings specially with loss of bowel and bladder continence her postictal confused state etc. will have to determine whether not patient has been receiving her antiepileptic medication. For now I will give her a loading dose of IV Dilantin and continue her on her Keppra. Continue with seizure precautions and expect her to slowly improve from this. Given her complicated history with her prior tumor and surgical interventions in the brain I think more advanced imaging then CT is appropriate. Patient did have MRI performed in October of this year, and given her implanted bladder stimulator we are unable to perform MRI here. Unlikely there has been some significant change. Will defer on any advanced imaging at this time. 2. Elevated lactate-no evidence of infectious etiology. Patient apparently with a history of an elevated lactate level which is documented in her chart. Do not believe this is an active infectious etiology. 3. Diabetes-will continue patient's usual dose insulin and monitor carefully here while under more controlled diet. 4. Peripheral edema-patient is struggling recently with increasing peripheral edema. I am going to order echocardiography to re-evaluate her cardiac status which thus far has not been felt to be a contributing factor 5. Weakness-I think patient deserves PT and OT evaluation prior to return to an alternate living facility. 6. VTE prophylaxis-will apply sequential compression devices. Somewhat concerned to use Lovenox given the obvious trauma on her face. 7. Code status-patient has previous expressed wishes to be a no code no heroic interventions 8. Disposition-I am uncertain as to whether patient has been receiving proper care at the current at assisted living facility where she resides. It has been next to impossible to even approach anything related to adequate blood sugar control, and her presentation in the emergency department is troubling. Will have case management social worker see patient for consideration of perhaps alternate living facilities perhaps an adult family home would actually be an improvement for her. No record of patient's medications was transferred with her to the hospital. Will have to send to the assisted living facility to obtain that. I am uncertain as to current doses of her anti epileptic medication as well as her insulin. Changes seem to been made since I saw her last in the clinic in July.
[2018-12-09 07:09] LABS: Adenovirus F 40/41 Not Detected (Not Detect); Astrovirus Not Detected (Not Detect); Campylobacter Not Detected (Not Detect); Clostridium difficile toxin AB Not Detected (Not Detect); Cryptosporidium Not Detected (Not Detect); Cyclospora cayetanensis Not Detected (Not Detect); Entamoeba histolytica Not Detected (Not Detect); Enteroaggregative E.coli Not Detected (Not Detect); Enteropathogenic E.coli Detected (Not Detect); Enterotoxigenic E.coli It/st Not Detected (Not Detect); Giardia lamblia Not Detected (Not Detect); Norovirus GI/GII Not Detected (Not Detect); Plesiomonsa shigelloides Not Detected (Not Detect); Rotavirus A Not Detected (Not Detect); Salmonella Not Detected (Not Detect); Shiga-like toxin-prod E.coli Not Detected (Not Detect); Shigella/Enteroinvasive E.coli Not Detected (Not Detect); Vibrio Not Detected (Not Detect); Vibrio cholerae Not Detected (Not Detect); Yersinia enterocolitica Not Detected (Not Detect)
[2018-12-09] MEDS: PANTOPRAZOLE 20 MG TABLET PO ×2 (07:14→21:17)
[2018-12-09] MEDS: FUROSEMIDE 40 MG TABLET PO ×2 (07:14→12:42)
[2018-12-09] MEDS: glipiZIDE 5 MG TABLET PO ×2 (08:00→16:56)
[2018-12-09] MEDS: CHOLECALCIFEROL (VITAMIN D3) 1,000 UNIT TABLET 1000 UNIT PO (08:00)
[2018-12-09] MEDS: MAGNESIUM OXIDE 400 MG TABLET PO (08:00)
[2018-12-09] MEDS: METFORMIN HCL 500 MG TABLET 1000 MG PO ×2 (08:01→16:56)
[2018-12-09] MEDS: POTASSIUM CHLORIDE 10 MEQ TAB 30 MEQ PO (08:01)
[2018-12-09] MEDS: ASPIRIN EC 81 MG TABLET PO (08:01)
[2018-12-09] MEDS: levETIRAcetam 250 MG TABLET 500 MG PO (08:01)
[2018-12-09 08:06] LABS: Reflexed Lactate in 2 Hours Y
[2018-12-09 09:07] LABS: Lactate 2HR (Lactic Acid Rflx) 2.9 mmol/L (0.7-2.1)
[2018-12-09] MEDS: FOSPHENYTOIN IV (09:39)
[2018-12-09] MEDS: SODIUM CHLORIDE 0.9% IV (09:39)
[2018-12-09] MEDS: CITALOPRAM 20 MG TABLET PO (09:59)
[2018-12-09] MEDS: dexAMETHasone 1 MG TABLET 2 MG PO ×2 (09:59→21:17)
[2018-12-09] MEDS: TOLTERODINE LA 4 MG PO (10:00)
[2018-12-09] MEDS: MIDODRINE HCL 5 MG TABLET PO ×2 (10:00→21:17)
--- NOTE | 2018-12-09 11:40 | PT.IIE ---
Surgical History (Last Reviewed 12/09/18 @ 09:29 by Naveen Vaughn MD) H/O pelvic surgery (Inactive ~2016) Anesthesia (Resolved) History of cholecystectomy (Resolved ~1987) History of hysterectomy (Resolved ~1988) Medical History (Last Reviewed 12/09/18 @ 09:29 by Naveen Vaughn MD) 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, insulin dependent (Chronic ~2007) Seizure disorder (Chronic) Orthostatic hypotension (Chronic) Fecal incontinence (Chronic) GERD without esophagitis (Chronic) Cognitive dysfunction (Chronic) High serum lactate (Chronic) Depression (Chronic) Urinary incontinence (Chronic ~2015) Other and unspecified hyperlipidemia (Chronic) Anxiety (Chronic) Hearing loss (Chronic ~2016) Ovarian cyst (Chronic ~1983) Vision disorder (Chronic) Chicken pox (Resolved ~1966) Fractures (Resolved ~2017) Measles (Resolved ~1963) Physical Therapy Inpatient Evaluation/Re-Eval M1 PT/OT-IP Prior Functional Status Start: 12/09/18 13:40 Freq: NEEDED Status: Active Protocol: Document 12/09/18 11:40 AB (Rec: 12/09/18 14:02 AB [id number]) Medical Review Prior Functional Status Medical History Reviewed Yes Communication pt is able to respond to questions but with confusion Mobility and Gait pt stated that she is independent with all mobilities and ambulation but per [facility]: pt is dependent with all mobilities; uses a frida lift for transfers and is non- ambulatory; has a manual w/c and able to propel using her UE. Activities of Daily Living and IADL's CC caregivers assist pt with ADLs Social History Living Arrangements Skilled Nurse Facility Home Environment Walk in Shower Home Equipment Hospital Bed M2 PT-IP Current Condition Start: 12/09/18 13:40 Freq: NEEDED Status: Active Protocol: Document 12/09/18 11:40 AB (Rec: 12/09/18 14:02 AB [id number]) Physical Therapy Current Condition Current Condition Evaluation Date 12/09/18 Treatment Diagnosis confusion; generalized weakness Onset Date 12/09/18 M3 PT-IP Subjective Start: 12/09/18 13:40 Freq: NEEDED Status: Active Protocol: Document 12/09/18 11:40 AB (Rec: 12/09/18 14:02 AB [id number]) Subjective Physical Therapy Visit Type Type Initial Evaluation Visit Start Time 11:40 Visit Stop Time 12:34 Total Visit Minutes 54 Number of GREEN INSPECTOR Visits 0 Physical Therapy Visit Comments Patient Comments pt agreed to do PT Therapy Pain Assessment Pain When Pain Assessed At Rest Pain Present Pain Present Pain Reported Location Right Cheek Scale Used stated a lot of pain M4 PT-IP Mobility and Gait Start: 12/09/18 13:40 Freq: NEEDED Status: Active Protocol: Document 12/09/18 11:40 AB (Rec: 12/09/18 14:02 AB [id number]) PT-Bed Mobility Assessment Supine to Sit Supine to Sit Maximum Assistance 2 Person Assistance Head of Bed Elevated Scooting Scooting to Edge of Bed Maximum Assistance PT-Transfer Assessment Sit to and From Stand Sit to and from Stand Maximum Assistance 2 Person Assistance Use of Upper Extremities Equipment Transfer Assistive Device Mechanical Lift Orthotic/Prosthetic Devices or Brace: No Transfers Transfer Destination Chair Transfer Technique Mechanical Lift Transfer Ability Level of Assist 2 Person Assistance Comments Mobility Comments pt completed supine to sit HOB elevated max A x 2 and max cues. pt was able to sit on EOB mod to max A to maintain sitting balance on EOB. completed sit <>stand x 5 reps . pt was able to stand for ~ 5-7 sec on first attempt but unable to stand long succeeding attempts despite max A x 2. provided. Assisted pt to the chair requiring use of mechanical lift. positioned pt on chair. set up pt for lunch. call light and table within reach. Gait Assessment Comments Gait Comments unable PT-Balance Assessment Sitting Balance and Reactions Static Sitting Balance Ability Fair Dynamic Sitting Balance Ability Poor Standing Balance and Reactions Static Standing Balance Ability Poor Dynamic Standing Balance Ability Poor Device Used FWW M5 PT-IP Objective Assessments Start: 12/09/18 13:40 Freq: NEEDED Status: Active Protocol: Document 12/09/18 11:40 AB (Rec: 12/09/18 14:02 AB [id number]) Orientation Orientation/Cognition Level of Alertness Confusional State Orientation Name Safety Awareness Decreased Safety Awareness Memory Description Short Term Impaired Electrical Parts Reconditioner Impaired Gross Range of Motion Lower Extremity ROM Assessment Within Functional Limits Strength Lower Extremity Strength Assessment Bilaterally Impaired Hip 3+/5 Knee 3+/5 Muscle Tone Muscle Tone WNL Yes M6 PT-IP Treatment Start: 12/09/18 13:40 Freq: NEEDED Status: Active Protocol: Document 12/09/18 11:40 AB (Rec: 12/09/18 14:02 AB [id number]) Physical Therapy Treatment Education Education Provided Safety M7 PT-IP Assessment and Plan Start: 12/09/18 13:40 Freq: NEEDED Status: Active Protocol: Document 12/09/18 11:40 AB (Rec: 12/09/18 14:02 AB [id number]) PT Summary Assessment and Plan Potential Rehabilitation Potential Fair Status of Condition at Evaluation Evolving Summary Impairments Pain ROM Strength Balance Coordination Cognition Bed Mobility Transfers Gait Activity Tolerance Assessment Summary pt requires max A x 2 and is total A for transfers. pt is at PLOF and no further PT intervention indicated at this time. Frequency of Treatment Frequency Of Treatment Discharge Recommendations To Nursing Amount of Assist Needed Mechanical Lift Discharge Recommendations PT Discharge Recommendations LT[facility]
[2018-12-09] MEDS: INSULIN ASPART 100 UNIT/ML INSULN PEN SUBCUT ×2 (12:42→16:50)
--- NOTE | 2018-12-09 14:09 | PC.NURSE ---
Addendum entered by Mireya Cole R.N. 12/09/18 15:52: changed to [facility] bed at 1240 once pt in chair with PT assist using Ceiling lift. Chair alarm on. Pt sat in chair from approx 1235 to 1400. Original Note: Day Shift- Spoke with Marcela Recinos RN at [facility] for brief update. Marcela able to state that speaking with pt's mother Mackenzie that pt had her bladder stimulator was turned off a few months ago prior to receiving a MRI at [facility]. Dr. Vaughn updated with above information around 0920. MRI cancelled at this time. Pt's sister Meghan visiting pt, brief update given at 1330. At 1400, pt's mother Mackenzie called and brief update given, requested for detailed information to call Dr. Vaughn office. She states she has his office number.
--- NOTE | 2018-12-09 14:22 | OT.IP.EVAL ---
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, insulin dependent (Chronic ~2007) Seizure disorder (Chronic) Orthostatic hypotension (Chronic) Fecal incontinence (Chronic) GERD without esophagitis (Chronic) Cognitive dysfunction (Chronic) High serum lactate (Chronic) Depression (Chronic) Urinary incontinence (Chronic ~2015) Other and unspecified hyperlipidemia (Chronic) Anxiety (Chronic) Hearing loss (Chronic ~2016) Ovarian cyst (Chronic ~1983) Vision disorder (Chronic) Chicken pox (Resolved ~1966) Fractures (Resolved ~2017) Measles (Resolved ~1963) Surgical History (Last Reviewed 12/09/18 @ 09:29 by Naveen Vaughn MD) H/O pelvic surgery (Inactive ~2016) Anesthesia (Resolved) History of cholecystectomy (Resolved ~1987) History of hysterectomy (Resolved ~1988) Occupational Therapy Inpatient Evaluation/Re-Eval M1 PT/OT-IP Prior Functional Status Start: 12/09/18 14:07 Freq: NEEDED Status: Active Protocol: Document 12/09/18 14:08 [facility] (Rec: 12/09/18 14:22 [facility] [id number]) Medical Review Prior Functional Status Medical History Reviewed Yes Communication pt is able to respond to questions but with confusion Mobility and Gait pt stated that she is independent with all mobilities and ambulation but per [facility]: pt is dependent with all mobilities; uses a frida lift for transfers and is non- ambulatory; has a manual w/c and able to propel using her UE. Activities of Daily Living and IADL's [facility] caregivers assist pt with ADLs for toileting, bathing, dressing, but pt capable of grooming after set-up and sitting in the wc and able to eat independently as well after set-up. Social History Living Arrangements Skilled Nurse Facility Home Environment Walk in Shower Home Equipment Manual Wheelchair Hospital Bed M2 OT-IP Current Condition Start: 12/09/18 14:07 Freq: Status: Active Protocol: Document 12/09/18 14:08 [facility] (Rec: 12/09/18 14:22 [facility] [id number]) Occupational Therapy Current Condition Current Condition Evaluation Date 12/09/18 Treatment Diagnosis Presumed seizure per MD, generalized weakness Weight Bearing Status Weight Bearing Status Weight Bear as Tolerated M3 OT- IP Subjective and Pain Start: 12/09/18 14:07 Freq: Status: Active Protocol: Document 12/09/18 14:08 [facility] (Rec: 12/09/18 14:22 [facility] [id number]) OT- Subjective Occupational Therapy Visit Type Type Initial Evaluation Visit Start Time 13:30 Visit Stop Time 13:57 Total Visit Minutes 27 Occupational Therapy Visit Comments Patient Comments Pt's sister and other family present for part of OT eval. OT Pain Assessment Pain When Pain Assessed At Rest Pain Present Pain Present Denied Pain M4 OT- IP ADL's Start: 12/09/18 14:07 Freq: Status: Active Protocol: Document 12/09/18 14:08 [facility] (Rec: 12/09/18 14:22 [facility] [id number]) OT KWI-Gelp-Dwdeqfr General Evaluation Self-Feeding Ability Standby Assistance Areas Needing Assistance Opening Containers Comments OT Self-Feeding Comments Pe POWER HOUSE CONTROL ROOM OPERATOR, pt able to self feed independently after set-up. OT ADL-Grooming Comments OT Grooming Comments No opportunity. OT ADL-Dressing General Eval Lower Body Dressing Ability Maximum Assistance Areas Needing Assistance Underpants/Brief OT ADL-Toileting General Evaluation Toileting Ability Maximum Assistance Areas Needing Assistance Perform Perineal Hygiene Comments OT Toileting Comments MAX A x 2 for all toileting needs to assist to roll, help with hygiene and brief change. M6 OT- IP Functional Cognition Start: 12/09/18 14:07 Freq: Status: Active Protocol: Document 12/09/18 14:08 [facility] (Rec: 12/09/18 14:22 [facility] [id number]) Cognitive Factors Limiting Selfcare Function Cognitive Ability Level of Alertness Confusional State Patient Orientation Name Attention Span Ability Capable of Focused Attention Unable to Sustain Attention Ability to Follow Commands Able to Follow One Step Commands with Increased Time Able to Follow One Step Commands with Repetition Memory Description Short Term Impaired Justice Court Deputy Clerk Impaired Working Impaired Cognitive Comments Cognitive Assessment Comments Per pt's sister prior that her cognition fluctuated at times able to remember facts two years ago and at times unable to recall what just happened. Pt states that it was May and 2018, [facility], and at [facility]. Pt needing step by step instructions for frida lift and log rolling in bed. OT- Vision and Hearing OT- Vision Assessment Vision Assessment Comments Right eye swollen, unable to fully assess due to pt's decreased alertness and confusiton. M7 OT- IP Mobility and Balance Start: 08/06/19 14:07 Freq: Status: Active Protocol: Document 12/09/18 14:08 [facility] (Rec: 12/09/18 14:22 [facility] [id number]) OT- Bed Mobility Assessment Rolling Type of Rolling Bilateral Level of Assistance 2 Person Assistance Bedrails and use of tilt mode for hospital bed. OT-Transfer Assessment Devices Transfer Assistive Devices Mechanical Lift Comments Mobility Comments Mechanical lift only at this time. OT- Gait Assessment Comments Gait Ability Comments Pt limited use of to propel manual wheelchair at [facility]. M8 OT- IP Objective Assessments Start: 12/09/18 14:07 Freq: Status: Active Protocol: Document 12/09/18 14:08 [facility] (Rec: 12/09/18 14:22 [facility] [id number]) OT Gross Range of Motion Upper Extremity Range of Motion Assessment Within Functional Limits OT Strength Comments Strength Comments BUE 4-/5 to 4/5. M9 OT- IP Assessment and Plan Start: 12/09/18 14:07 Freq: Status: Active Protocol: Document 12/09/18 14:08 [facility] (Rec: 12/09/18 14:22 [facility] [id number]) OT Summary Assessment and Plan Potential Rehabilitation Potential Poor Analytic Complexity at Evaluation Low Summary OT Impairments Strength Balance Functional Cognition Functional Mobility Dressing Toileting Bathing Toilet Transfers Shower Transfers Progress Towards Goals Slow Progress due to Medical Issues Slow Progress due to Activity Tolerance Assessment Summary Pt low complexity and spoke to staff at [facility] and pt's sister and currently baseline for ADL needs as mainly just able to self feed and grooming otherwise dependent for all other needs and use of mechanical lift. Discharge pt from OT services. Frequency of Treatment Frequency Of Treatment Discharge Discharge Recommendations OT Discharge Recommendations [facility]
--- NOTE | 2018-12-09 14:58 | CM.DANOTE ---
DCP/Assessment: Reviewed chart. Pateint is a 58yr old female admitted to [facility] after fall at [facility]. PCP is Dr. Vaughn. Primary payor is 1)Medicare 2)Medicaid. Received SHOTGUN SHELL ASSEMBLY MACHINE OPERATOR consult for d/c planning issues/concerns. Apparently, patient resides at [facility] and it is unclear on whether or not patient receiving proper level of care. Per MD notes, patient fell and medication has been poorly controlled. Therapy evaluations currently pending. SHOTGUN SHELL ASSEMBLY MACHINE OPERATOR left vm with Violet at [facility]. Met with patient explained SHOTGUN SHELL ASSEMBLY MACHINE OPERATOR role. Patient appeared alert and oriented during interview. Patient could answer all questions pertaining to person, place, and time. Although patient has h/o brain CA diagnosed in 2011 with identified cognitive dysfunction. Patient reports that she resides at [facility] and has been there the last 6 months. Patient denies any complaints about returning to [facility]. Therapy evaluations pending. During assessment met with Andria CALLEJAS/Ajay Lazo ph# [phone] he reports that he is assigned as patient's post acute care nurse practitioner. Ajay reports that he is newly assigned to patient but that she is enrolled in program that checks in on her well being every month. Notified Ajay of MD's concerns about current placement. Ajay reports that he will be following up with [facility] as well. Patient reports that she is w/c bound at baseline. [place] Transport provided by [facility]. Patient considers herself to be somewhat active with limitations. P: Anticipate return to [facility] when medically stable unless determined otherwise. Patient reports that she wants to return. SHOTGUN SHELL ASSEMBLY MACHINE OPERATOR to speak with them re: concerns related to her care/medications prior to her departure. MERRY Jamil Discharge Planning/Care Management CM Discharge Assessment Start: 12/09/18 14:50 Freq: Status: Active Protocol: Document 12/09/18 14:50 [facility] (Rec: 12/09/18 14:58 [facility] [id number]) Discharge Planning Assessment Assigned Fish Farm Laborer MERRY Jamil Contact Information Mackenzie Talavera (mother) Advance Directives? Yes: POLST History Provided By Patient Medical Record Prior Living Arrangements Assisted Living Comment [facility] contact is Violet # [phone] Household Members other Type of transporation used prior to Relies on Others admit Facility Name Admitted From: [facility] Willing to Return to Facility? Yes Independent with ADL's No Is patient alert and oriented? AxO (1-2) per MD notes Needs Assistance With Bathing Meal Prep Managing Medications Home Chores / Shopping Caregiver for Another No DME Already Rented / Owned Wheelchair Comment Return to [facility] Comment Pending assessment by [facility]. Transportation Arrangement Pending need at time of discharge. Additional Comment Patient is enrolled in [facility] program. They check on patient monthly at [facility]. Contact is Ajay Lazo # [phone]. He is aware of patient's admit. Whiteboard Updated in Patient Room with Yes name and ext. # of Fish Farm Laborer Review Status In Process Next Review Type Continued Stay Review Discharge Planning/Care Management CM Discharge Assessment Start: 12/09/18 14:50 Freq: Status: Active Protocol: Document 12/09/18 14:50 [facility] (Rec: 12/09/18 14:58 [facility] [id number]) Discharge Planning Assessment Assigned Fish Farm Laborer MERRY Jamil Contact Information Mackenzie Talavera (mother) [phone] Advance Directives? Yes: POLST History Provided By Patient Medical Record Prior Living Arrangements Assisted Living Comment [facility] contact is Violet ph# [phone] Household Members other Type of transporation used prior to Relies on Others admit Facility Name Admitted From: [facility] Willing to Return to Facility? Yes Independent with ADL's No Is patient alert and oriented? AxO (1-2) per MD notes Needs Assistance With Bathing Meal Prep Managing Medications Home Chores / Shopping Caregiver for Another No DME Already Rented / Owned Wheelchair Comment Return to [facility] Comment Pending assessment by [facility]. Transportation Arrangement Pending need at time of discharge. Additional Comment Patient is enrolled in [facility] program. They check on patient monthly at [facility]. Contact is Ajay Lazo # . He is aware of patient's admit. Whiteboard Updated in Patient Room with Yes name and ext. # of Fish Farm Laborer Review Status In Process Next Review Type Continued Stay Review
[2018-12-09] MEDS: SODIUM CHLORIDE 0.9% 1,000 ML 75 ML IV (16:01)
[2018-12-09] MEDS: FOLIC ACID 0.4 MG TABLET PO (16:53)
[2018-12-09] MEDS: SIMVASTATIN 20 MG TABLET PO (16:57)
[2018-12-09] MEDS: levETIRAcetam 250 MG TABLET 750 MG PO (21:17)
[2018-12-09] MEDS: INSULIN GLARGINE 100 UNIT/ML 3ML PEN 40 UNIT SUBCUT (21:17)
[2018-12-10 01:15] VITALS: BP 105/57; PULSE 91; RESP 19; TEMP 37.4; O2SAT 95
[2018-12-10] MEDS: SODIUM CHLORIDE 0.9% 1,000 ML 75 ML IV (04:18)
[2018-12-10 05:00] VITALS: BP 114/68; PULSE 86; RESP 20; TEMP 37.2; O2SAT 95
[2018-12-10] MEDS: FUROSEMIDE 40 MG TABLET PO ×2 (06:41→12:02)
[2018-12-10] MEDS: PANTOPRAZOLE 20 MG TABLET PO (06:41)
--- NOTE | 2018-12-10 07:28 | P.DS_ITS ---
History of Present Illness Chief complaint: Fall/ Found down Narrative: Unfortunate 58-year-old female long-term resident of a local assisted care facility ([facility]) who was found down at that facility and transported to the [facility] Emergency Department. She is status post surgery radiation and chemotherapy for oligodendroglioma of the brain diagnosed in 2011. She has cognitive dysfunction on the basis of this. She has long- standing seizure disorder on the bases of treatments for her brain tumor. Uncertain as to when patient's last known well was. She was found down covered in feces and urine and an altered level of consciousness. She was transported to the hospital in that condition. Workup in the emergency department was relatively unremarkable. Patient seem confused disoriented confabulating certa in things that are clearly not true such as recent overseas travel. In the end it was felt more likely than not the patient had experienced seizure with resultant postictal state and is admitted for further evaluation. Patient shows evidence of significant trauma to the right side of her face based on swelling and early changes consistent with bruising they are present. However CT evaluation failed to reveal any evidence of any serious fractures or intracranial issues. No serious trauma actually found despite overlying skin edema and changes. Patient has had trouble with seizures although not recently. Had issues with Dilantin which she was on for a long time but seemed to cause persistent dizziness and nausea and vomiting. Patient had her Dilantin dose slowly decreased and eventually discontinued because of her persistent symptoms and basically her demands to be taken off the medication. She did well without that and during that taper without evidence of recurrent seizure issues that were obvious anyway. She was seen by a new neurologist in August of this year, Dr. ochoa in [place]. He started her on Keppra, despite her reported issue with rashes and muscle aches with this. This is based on his chart note from August 21 2018, and no further details are available Patient also has type 2 diabetes requiring insulin. This has been complicated by her need to continue on dexamethasone because of her intracranial issues as per Oncology. Patient has struggled with hyperglycemia and when insulin doses were increased hypoglycemia. This is despite being in an assisted living facility where presumably her medications are controlled and her diet is controlled as well. Clearly it seems to me there is some evidence of dietary indiscretion here as well. Discharge Providers Date of admission: 12/09/18 03:57 Discharge Date: 12/10/18 Primary care physician: Naveen Vaughn MD Consults: 12/09/18 06:49 Consult to Embedded Hardware Engineer Routine Comment: discharge planning, ?alt facility 12/09/18 07:05 Consult to Occupational Therapy Evaluate & Treat Comment: weakness Physician Instructions: Evaluate and treat Consult to Physical Therapy Evaluate & Treat Comment: adolfo Physician Instructions: Evaluate and Treat Discharge provider: Naveen Vaughn MD Summary Discharge Diagnosis: 1. Seizure resulting in fall with facial trauma 2. Significant right facial trauma contusions bruising without evidence of fracture or more serious injury 3. Postictal following seizure, resolving 4. Cognitive dysfunction, long-term, patient at baseline upon discharge 5. Oligodendroglioma 6. Type 2 diabetes insulin dependent 7. Fecal and urinary incontinence Hospital Course: Patient was admitted 5 mg Department after being found down at her assisted living facility. She in the and was felt of had a seizure based on elevated clinical markers her postictal state her loss of bowel and bladder control (more so than usual) etc. her dose of Keppra which had been reinstituted in August of this year was slightly increased. She had no further evidence of seizure activity during this hospitalization. Patient not had any witnessed seizures at her assisted living facility but had multiple falls uncertain as to whether seizures may be playing a role in that. Patient was evaluated by skilled therapies who felt like she was at baseline compared to her function at the assisted living facility after consultation with that facility Patient's diabetes was very well controlled during this hospitalization. She received approximately 40% of the usual insulin she would be receiving at her assisted living facility any a blood sugar remained less than 180. At the facility blood sugars ranged from high 80s to over 300 again on twice daily long-acting insulin and doses approximately more than double doses received here in the hospital. Clearly there is some dietary indiscretion of a significant nature that occurs at her assisted living facility, and it is at least reassuring to know that with proper dietary interventions patient's blood sugar would be better controlled. Patient overall remained quite weak unable to really assist with any transfers. She had evidence of some loose stool and diarrhea which is chronic for her as well. She was felt to be back to baseline and ready for return to the assisted living facility on the day of discharge Her clinical course was discussed with her mother over the phone who based on my descriptions (mother is currently in [place]) said she believes her daughter is at baseline all the way around from mental status/cognitive dysfunction as well as strength etc. Status at Discharge Cognitive/behavioral status at discharge: at baseline, confused Functional status at discharge: bed bound Overall status at discharge: patient is back to baseline Exam Vital Signs (past 8 hours): - 12/10/18 01:15 12/10/18 05:00 Temperature 99.4 F 98.9 F Pulse Rate 91 H 86 Respiratory Rate 19 20 Blood Pressure 105/57 L 114/68 Pulse Oximetry 95 95 Oxygen Delivery Method Room Air Oxygen Flow Rate 0 Narrative Exam Narrative: Unchanged from previous Objective Labs Result Diagrams: 12/09/18 06:00 12/09/18 06:00 Labs: Laboratory Results - last 24 hr 12/09/18 08:35 Lactate 2.9 H Discharge Plan Discharge Plan Patient Disposition: Assisted Living Transfer to: [facility] Under care of provider: Roderick Transportation: [facility] Discharge Med Rec/Prescriptions Prescriptions: New levetiracetam 250 mg Tablet 750 mg PO BEDTIME Qty: 30 RF: 0 levetiracetam 250 mg Tablet 500 mg PO DAILY Qty: 30 RF: 0 Continued cholecalciferol (vitamin D3) 1,000 unit capsule 1,000 unit PO DAILY Qty: 90 RF: 3 melatonin 3 mg tablet 6 mg PO BEDTIME Qty: 90 RF: 0 simvastatin 20 mg tablet 20 mg PO QPM Qty: 90 RF: 0 tolterodine 4 mg capsule,extended release 24hr 4 mg PO DAILY Qty: 90 RF: 0 acetaminophen 325 mg tablet 650 mg PO Q4H PRN (Reason: Fever Or Pain) Qty: 90 RF: 0 ondansetron HCl 4 mg tablet 4 mg PO Q6H PRN (Reason: Nausea And Vomiting) Qty: 30 RF: 0 oxycodone-acetaminophen 5-325 mg tablet 1 tab PO BEDTIME PRN (Reason: moderate pain/discomfort) Qty: 30 RF: 0 glipizide 5 mg tablet 5 mg PO BID Qty: 60 RF: 3 folic acid 400 mcg tablet 0.4 mg PO QPM Qty: 90 RF: 1 loperamide [Imodium A-D] 2 mg capsule 2 mg PO Q2-4H PRN (Reason: loose stool) Qty: 60 RF: 0 ibuprofen 400 mg tablet 400 mg PO BID Qty: 60 RF: 3 metformin 1,000 mg tablet 1,000 mg PO BID Qty: 90 RF: 3 Easy Touch Pen Needle 30 gauge x 5/16 needle .ROUTE .MEDSUPPLY Qty: 100 RF: 1 omeprazole 20 mg capsule,delayed release(DR/EC) 20 mg PO BID Qty: 90 RF: 0 potassium chloride 10 mEq tablet extended release 30 meq PO DAILY Qty: 90 RF: 1 midodrine 5 mg tablet 5 mg PO TID Qty: 90 RF: 0 citalopram 20 mg tablet 20 mg PO DAILY Qty: 90 RF: 1 pen needle, diabetic 32 gauge x 5/32 needle .ROUTE .MEDSUPPLY 30 Days Qty: 100 RF: 0 pen needle,diabetic dual safty 30 gauge x 3/16 needle .ROUTE .MEDSUPPLY 25 Days Qty: 100 RF: 0 dexamethasone 2 mg tablet 2 mg PO BID Qty: 90 RF: 0 aspirin 81 mg Tablet,Delayed Release (Dr/Ec) 81 mg PO DAILY RF: 0 magnesium oxide 400 mg Tablet 400 mg PO DAILY RF: 0 furosemide 40 mg Tablet 40 mg PO DAILY RF: 0 insulin glargine 100 unit/mL (3 mL) insulin pen 60 units subcut QPM RF: 0 insulin glargine 100 unit/mL (3 mL) insulin pen 70 units subcut DAILY RF: 0 hydrocortisone acetate 1 % Cream 1 applic TOPICAL Q8H PRN (Reason: Rash) RF: 0 meclizine 25 mg Tablet 25 mg PO Q6H PRN (Reason: dizziness or vertigo) RF: 0 nystatin 100,000 unit/gram powder 1 applic topical PRN PRN (Reason: Rash) RF: 0 omega 6-qgj-apn-fish oil [Fish Oil] 1,000 mg (120 mg-180 mg) Capsule 1 cap PO DAILY RF: 0 Robitussin Dm 5 ml PO Q4H PRN (Reason: Cough) RF: 0 Discontinued midodrine 5 mg tablet 5 mg PO TID Qty: 90 RF: 0 levetiracetam 500 mg tablet 500 mg PO BID RF: 0 Follow up/Referrals: Naveen Vaughn MD [Primary Care Provider] - Discharge Orders: Discharge (Order); Ordered 12/10/18 Ordered By: Naveen Vaughn Discharge Health Status Multidrug resistant organism: No MDRO Precautions: [place] Provider Discharge Instructions Diet: Carb-consistent/Diabetic Liquid consistency: Normal/Thin Food texture: Regular Discharge Data Primary Care Provider: Naveen Vaughn Attending Provider: Naveen Vaughn Admit Date/Time: 12/09/18 03:57
[2018-12-10 08:00] VITALS: BP 124/67; PULSE 85; RESP 22; TEMP 36.4; O2SAT 97
[2018-12-10 09:21] VITALS: O2SAT 95
[2018-12-10] MEDS: MAGNESIUM OXIDE 400 MG TABLET PO (09:30)
[2018-12-10] MEDS: levETIRAcetam 250 MG TABLET 500 MG PO (09:30)
[2018-12-10] MEDS: TOLTERODINE LA 4 MG PO (09:30)
[2018-12-10] MEDS: MIDODRINE HCL 5 MG TABLET PO ×2 (09:30→14:22)
[2018-12-10] MEDS: CITALOPRAM 20 MG TABLET PO (09:30)
[2018-12-10] MEDS: dexAMETHasone 1 MG TABLET 2 MG PO (09:31)
[2018-12-10] MEDS: POTASSIUM CHLORIDE 10 MEQ TAB 30 MEQ PO (09:31)
[2018-12-10] MEDS: glipiZIDE 5 MG TABLET PO (09:31)
[2018-12-10] MEDS: METFORMIN HCL 500 MG TABLET 1000 MG PO (09:31)
[2018-12-10] MEDS: CHOLECALCIFEROL (VITAMIN D3) 1,000 UNIT TABLET 1000 UNIT PO (09:40)
[2018-12-10] MEDS: ASPIRIN EC 81 MG TABLET PO (09:40)
[2018-12-10 12:00] VITALS: BP 110/71; PULSE 103; RESP 22; TEMP 36.7; O2SAT 97
--- NOTE | 2018-12-10 12:09 | PC.NURSE ---
Addendum entered by Radha Hernandez R.N. 12/10/18 13:09: MS/SAMPSON Medrano RN from [facility] here to rupert pt returning to facility, she req that we place pt in wc to see how indep pt is. Jarred lift to chair and pt was able to move herself in the wc out into the hallway. Original Note: AM NOTE - pt awakens to stimulus, speech is appropriate, delayed responses w/o slurring, has extensive edema and bruising r shinto, orbit and down cheek to jaw w/abraisons, mult srikanth bruising, r breast, r foot both knees and l foot and ankle, pt incont loose stool this am, in and discussed liq stool, no new order rec'd for stool collection, some incr redness buttock area, ra 97%, hr 104, 3+ srikanth pedal edema.
[2018-12-10 16:00] VITALS: BP 135/73; PULSE 115; RESP 20; TEMP 36; O2SAT 95
--- NOTE | 2018-12-10 17:05 | PC.NURSE ---
Transporter from [facility] here to take pt to facility. Dr. Godwin calls this medical underwriter via telephone to discuss pt's loose stools. Discussed output with MD during dayshift and overnight. Pt currently without stool. Tele dc'd and iv dc'd intact. Per Dr Godwin, okay to send pt to [facility]. Transporter was provided with information packet and pt was transferred from bed to wheelchair utilizing mechanical lift. Pt left hospital in stable condition with all personal belongings accounted for.
--- NOTE | 2018-12-11 09:09 | CM.DPNOTE ---
Addendum entered by MERRY Rangel 12/11/18 09:27: for Ajay Clifton w/[facility] P# [phone] this morning alerting him of pt's DC yesterday back to [facility]. JW Original Note: Late Entry/DC Note: According to chart review, pt was picked up by [facility] staff approx 1700 last night, family remained agreeable to this plan. Yesterday morning, Dr Vaughn had completed pt's DC based on input from pt's mother and therapy notes indicating pt had returned to her functional and cognitive baseline. Pt was also medically stable to leave the hospital. Dr Vaughn had completed and signed pt's med list and had begun the DC Summary, DC order back to [facility] w/DC instructions were completed. Placed call to Violet at [facility] yesterday morning, P# [phone]. Faxed available clinical and DC ppk to F# [phone]. Bedside assessment was scheduled between 3855-4507, this [employer] alerted MANNY Garcia. Later heard from MANNY Garcia that Marcela from [facility] had come to do a bedside assessment and gave the impression [facility] could accept pt back 8.7.19. This [employer] had not heard from Violet or Marcela yesterday afternoon; multiple attempts made by this DIRECT[employer] to get in touch to discuss DCP ? Placed call to Lyn Segal P# [phone] to ask what the status of this p/u was? This [employer] alerted evening RN Coordinator Akosua that this DIRECT[employer] faxed all DC ppk/med list to [facility] and encouraged the evening staff to call Lyn again to determine if [facility] was going to p/u pt to return home tonight or not ? This [employer] had not heard back from anyone at [facility] at this time. P: DC 8.7.19 back to [facility] via w/c van, pt's family remained agreeable to this plan. In addition; Violet asked about concerns documented by both Dr Vaughn and MERRY Drummond re: care at [facility]? This [employer] reviewed chart to find Dr Vaughn's comment/concern re: pt's diet and compliance at [facility]. Violet requested that she be contacted directly by physician and/or family re: any concerns or ongoing questions. Pt/family had no stated concerns about pt returning to [facility] on 12.10.18. MERRY Rangel
== END 2018-12-10 16:45 | DRG 101 ==
LOC: ED 21:20 → AC 12-09 03:59
PROVIDERS: Admitting Provider Internal Medicine; Emergency Provider Emergency Medicine; PCP Internal Medicine; Visit Provider Internal Medicine
DX: G40.909 Epilepsy, unspecified, not intractable, without status epilepticus (principal); Z68.42 Body mass index [BMI] 45.0-49.9, adult; E86.0 Dehydration; R60.0 Localized edema; Z74.01 Bed confinement status; G31.84 Mild cognitive impairment of uncertain or unknown etiology; E66.9 Obesity, unspecified; R40.2362 Coma scale, best motor response, obeys commands, at arrival to emergency department; R40.2132 Coma scale, eyes open, to sound, at arrival to emergency department; R40.2242 Coma scale, best verbal response, confused conversation, at arrival to emergency department
CPT/HCPCS: 36415; 51705; 70450; 70486; 71045; 72125; 72170; 80048; 80053; 80185; 81001; 82550; 82962; 83605; 84146; 84484; 85025; 85610; 87507; 93306; 94760; 97162; 97165; 99223; 99238; 99285; Q2009

== ENCOUNTER 2018-12-19 11:19 | Emergency (ER) | payer MEDICARE, MEDICAID, SELFPAY ==
[2018-12-09 05:17] VITALS: BMI 47.8
[2018-12-19 11:33] VITALS: BP 142/91; PULSE 117; RESP 18; TEMP 36.8; O2SAT 95
--- NOTE | 2018-12-19 11:47 | ED_ITS ---
HPI - Head Injury General Chief complaint: Head Injury Stated complaint: HEADACHE AFTER FALL Time Seen by Provider: 12/19/18 11:32 Source: other (Nursing staff from care facility) Mode of arrival: wheelchair Limitations: altered mental status History of Present Illness HPI Narrative: Patient is a 58-year-old female sent over from her living facility. She arrives by wheelchair. There was initially no explanation as to why she was here. The patient stated that she was here because of a headache and bruising to the right side of her face. Upon further review this appears to not be new. We called the nursing facility and they stated that she was sent over to have the rings on her fingers cut off because she was having swelling of her hands. Related Data Home Medications Medication Instructions Recorded Confirmed aspirin 81 mg PO DAILY 12/23/17 12/09/18 pen needle, diabetic 32 gauge x #100 each 01/07/18 12/09/18 pen needle,diabetic dual safety 30 #100 each 01/07/18 12/09/18 gauge x 07/19 Robitussin Dm 5 ml PO Q4H PRN 12/09/18 12/09/18 furosemide 40 mg PO DAILY 12/09/18 12/09/18 hydrocortisone acetate 1 applic TOPICAL Q8H PRN 12/09/18 12/09/18 insulin glargine 60 units SUBCUT QPM 12/09/18 12/09/18 insulin glargine 70 units SUBCUT DAILY 12/09/18 12/09/18 nystatin 1 applic TOPICAL PRN PRN 12/09/18 12/09/18 omega 2-qro-hqd-fish oil [Fish Oil] 1 cap PO DAILY 12/09/18 12/09/18 Previous Rx's Medication Instructions Recorded cholecalciferol (vitamin D3) 1,000 1,000 unit PO DAILY #90 cap 03/04/18 unit capsule ondansetron HCl 4 mg tablet 4 mg PO Q6H PRN #30 tab 05/29/18 dexamethasone 2 mg tablet 2 mg PO BID #90 tab 07/04/18 oxycodone-acetaminophen 5 mg-325 1 tab PO BEDTIME PRN #30 tab 07/14/18 mg tablet glipizide 5 mg tablet 5 mg PO BID #60 tab 09/01/18 folic acid 400 mcg tablet 0.4 mg PO QPM #90 tab 10/06/18 loperamide 2 mg capsule 2 mg PO Q2-4H PRN #60 cap 10/17/18 ibuprofen 400 mg tablet 400 mg PO BID #60 tab 10/24/18 metformin 1,000 mg tablet 1,000 mg PO BID #90 tab 11/04/18 pen needle, diabetic 30 gauge x #100 each 11/20/1809/18 omeprazole 20 mg capsule,delayed 20 mg PO BID #90 cap 11/28/18 release potassium chloride ER 10 mEq 30 meq PO DAILY #90 tab 12/08/18 tablet,extended release citalopram 20 mg tablet 20 mg PO DAILY #90 tab 12/09/18 midodrine 5 mg tablet 5 mg PO TID #90 tab 12/09/18 levetiracetam 500 mg PO DAILY #30 tab 12/11/18 levetiracetam 750 mg PO BEDTIME #30 tab 12/11/18 acetaminophen 325 mg tablet 650 mg PO Q4H PRN #90 tab 12/12/18 meclizine 25 mg tablet 25 mg PO Q6H PRN #90 tab 12/12/18 magnesium oxide 400 mg (241.3 mg 400 mg PO DAILY #30 tab 12/15/18 magnesium) tablet melatonin 3 mg tablet 6 mg PO BEDTIME #180 tab 12/15/18 tolterodine ER 4 mg 4 mg PO DAILY #90 cap 12/15/18 capsule,extended release 24 hr simvastatin 20 mg tablet 20 mg PO QPM #90 tab 12/18/18 Allergies Allergy/AdvReac Type Severity Reaction Status Date / Time adhesive tape Allergy Unknown Verified 07/04/18 14:11 Penicillins Allergy Unknown Verified 07/04/18 14:11 silicone Allergy Unknown Verified 07/04/18 14:11 zonisamide Allergy Unknown Verified 07/04/18 14:11 escitalopram AdvReac Unknown Verified 12/09/18 07:15 lamotrigine AdvReac Unknown Verified 12/09/18 07:15 Review of Systems Review of Systems ROS Unobtainable: Unobtainable due to mental status/LOC [facility] Medical History 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, insulin dependent (Chronic ~2007) Seizure disorder (Chronic) Orthostatic hypotension (Chronic) Fecal incontinence (Chronic) GERD without esophagitis (Chronic) Cognitive dysfunction (Chronic) High serum lactate (Chronic) Depression (Chronic) Urinary incontinence (Chronic ~2015) Other and unspecified hyperlipidemia (Chronic) Anxiety (Chronic) Hearing loss (Chronic ~2016) Ovarian cyst (Chronic ~1983) Vision disorder (Chronic) Chicken pox (Resolved ~1966) Fractures (Resolved ~2017) Measles (Resolved ~1963) Social History marital status: number of children: 3 household members: other lives independently: Yes caregiver/support person: Yes housing: assisted living facility pets and animals: No education level: high school occupational status: disabled Previous occupational history: [employer] in [place] [employer]/adventism: None leisure activities: games (Movile) and other (Movies, TV) Smoking Status: Former smoker Tobacco: How many years used: 2 Smokeless tobacco user: other (Cigarettes) quit status: quit date established (2010) second hand exposure: No alcohol intake: never substance use type: does not use Exam Initial Vital Signs Initial Vital Signs: Vital Signs Temperature 98.3 F 12/19/18 11:33 Pulse Rate 117 H 12/19/18 11:33 Respiratory Rate 18 12/19/18 11:33 Blood Pressure 142/91 H 12/19/18 11:33 Pulse Oximetry 95 12/19/18 11:33 Const General: comfortable and well groomed Orientation: alert, awake and confused HENPR Head: other Face and sinus: other (Bruising to the right side of the face that is not appear to be new.) Resp Effort & Inspection: normal respiratory effort Skin Other: Bruising to the right side of the face does not appear to be new. No active bleeding. Neuro Other: Patient moves all 4 extremities. He is confused. Unable to provide much HPI does have a GCS of 14 Extrem Other: No gross deformities. Patient does have a ring on bilateral ring fingers. With swelling of her hands and fingers Psych Appearance: well kempt Scores GCS [place] coma scale eye opening: Spontaneous [place] coma scale verbal response: Confused Janusz coma scale motor response: Obey commands [place] coma scale total score: 14 Course Vital Signs - 8 hr 12/19/18 11:33 12/19/18 12:47 Temperature 98.3 F Pulse Rate 117 H 100 H Respiratory Rate 18 18 Blood Pressure [Right Arm] 142/91 H 140/91 H Pulse Oximetry 95 95 MDM - Head Injury MDM Narrative Medical decision making narrative: When I asked the patient if she had any complaints she said no. The rings on her bilateral hands were removed without difficulty. There placed in a specimen cup and sent with her back to her facility. A sticker with her name was placed on the specimen cup. It appears that she has at baseline mental status. Does appear that the bruising on the right side of her face is not new. Will hold on further workup for now. Discharge Plan Departure Patient Disposition: Home Clinical Impression: Swelling of finger of both hands Discharge Date/Time: 12/19/18 12:49 Interventions: ED Discharge Assessment Last Done: 12/19/18 12:48 Activity Restrictions/Additional Instructions: One ring on each hand was removed here in the emergency department and placed in a specimen cup with her name on them. Please contact her primary provider for follow-up. She can return to the emergency department at any point for new or worsening symptoms Prescriptions: No Action cholecalciferol (vitamin D3) 1,000 unit capsule 1,000 unit PO DAILY Qty: 90 RF: 3 ondansetron HCl 4 mg tablet 4 mg PO Q6H PRN (Reason: Nausea And Vomiting) Qty: 30 RF: 0 oxycodone-acetaminophen 5-325 mg tablet 1 tab PO BEDTIME PRN (Reason: moderate pain/discomfort) Qty: 30 RF: 0 glipizide 5 mg tablet 5 mg PO BID Qty: 60 RF: 3 folic acid 400 mcg tablet 0.4 mg PO QPM Qty: 90 RF: 1 loperamide [Imodium A-D] 2 mg capsule 2 mg PO Q2-4H PRN (Reason: loose stool) Qty: 60 RF: 0 ibuprofen 400 mg tablet 400 mg PO BID Qty: 60 RF: 3 metformin 1,000 mg tablet 1,000 mg PO BID Qty: 90 RF: 3 Easy Touch Pen Needle 30 gauge x 5/16 needle .ROUTE .MEDSUPPLY Qty: 100 RF: 1 omeprazole 20 mg capsule,delayed release(DR/EC) 20 mg PO BID Qty: 90 RF: 0 potassium chloride 10 mEq tablet extended release 30 meq PO DAILY Qty: 90 RF: 1 midodrine 5 mg tablet 5 mg PO TID Qty: 90 RF: 0 citalopram 20 mg tablet 20 mg PO DAILY Qty: 90 RF: 1 levetiracetam 250 mg tablet 500 mg PO DAILY Qty: 30 RF: 3 levetiracetam 250 mg tablet 750 mg PO BEDTIME Qty: 30 RF: 3 meclizine 25 mg tablet 25 mg PO Q6H PRN (Reason: dizziness or vertigo) Qty: 90 RF: 3 acetaminophen 325 mg tablet 650 mg PO Q4H PRN (Reason: Fever Or Pain) Qty: 90 RF: 0 tolterodine 4 mg capsule,extended release 24hr 4 mg PO DAILY Qty: 90 RF: 3 magnesium oxide 400 mg (241.3 mg magnesium) tablet 400 mg PO DAILY Qty: 30 RF: 5 melatonin 3 mg tablet 6 mg PO BEDTIME Qty: 180 RF: 0 simvastatin 20 mg tablet 20 mg PO QPM Qty: 90 RF: 1 pen needle, diabetic 32 gauge x 5/32 needle .ROUTE .MEDSUPPLY 30 Days Qty: 100 RF: 0 pen needle,diabetic dual safty 30 gauge x 3/16 needle .ROUTE .MEDSUPPLY 25 Days Qty: 100 RF: 0 dexamethasone 2 mg tablet 2 mg PO BID Qty: 90 RF: 0 aspirin 81 mg Tablet,Delayed Release (Dr/Ec) 81 mg PO DAILY RF: 0 furosemide 40 mg Tablet 40 mg PO DAILY RF: 0 insulin glargine 100 unit/mL (3 mL) insulin pen 60 units subcut QPM RF: 0 insulin glargine 100 unit/mL (3 mL) insulin pen 70 units subcut DAILY RF: 0 hydrocortisone acetate 1 % Cream 1 applic TOPICAL Q8H PRN (Reason: Rash) RF: 0 nystatin 100,000 unit/gram powder 1 applic topical PRN PRN (Reason: Rash) RF: 0 omega 9-clf-hxg-fish oil [Fish Oil] 1,000 mg (120 mg-180 mg) Capsule 1 cap PO DAILY RF: 0 Robitussin Dm 5 ml PO Q4H PRN (Reason: Cough) RF: 0
[2018-12-19 12:47] VITALS: BP 140/91; PULSE 100; RESP 18; O2SAT 95
== END 2018-12-19 12:49 | disposition home or self-care (01) ==
PROVIDERS: Emergency Provider Emergency Medicine
DX: M79.89 Other specified soft tissue disorders (principal)
CPT/HCPCS: 99282

== ENCOUNTER → 2019-01-12 14:16 | Outpatient (ROUT) | payer MEDICARE, MEDICAID, SELFPAY ==
[2018-12-09 05:17] VITALS: BMI 47.8
[2019-01-12 14:20] LABS: Bacteria Urine None Seen; RBC Urine None Seen (0-5/HPF); WBC Urine None Seen (0-5/HPF)
[2019-01-12 14:21] LABS: Appearance Urine UA CLEAR; Bilirubin Urine UA NEGATIVE (NEGATIVE); Color Urine UA YELLOW; Glucose Urine UA 1+ g/dL (Negative); Ketones Urine UA NEGATIVE (NEGATIVE); Leukocyte Esterase Urine UA NEGATIVE (NEGATIVE); Nitrite Urine UA NEGATIVE (Negative); Occult Blood Urine UA NEGATIVE (Negative); Protein Urine UA NEGATIVE (Negative); Urobilinogen Urine UA 0.2 E.U./dL (0.2)
[2019-01-12 14:22] LABS: Add Manual Diff / Slide Review NO; Basophils Absolute Auto 100 /uL (0-100); Eosinophils Absolute Auto 100 /uL (0-450); Eosinophils Percent Auto 0.7 % (2-4); Hematocrit 39.5 % (36-46); Hemoglobin 13.2 g/dL (12.0-16.0); Lymphocytes Absolute Auto 1700 /uL (1100-4500); Lymphocytes Percent Auto 16.7 % (25-40); Mean Corpuscular HGB Conc 33.5 % (30-36); Mean Corpuscular Hemoglobin 34.2 PG (26-34); Mean Corpuscular Volume 102.2 fL (80-100); Monocytes Absolute Auto 1000 /uL (0-900); Monocytes Percent Auto 9.4 % (3-14); Neutrophils Absolute Auto 7400 /uL (1500-7000); Neutrophils Percent Auto 72.2 % (50-75); Platelet Count 224 X10^3/uL (150-400); Red Blood Cell Count 3.87 X10^6/uL (4.0-5.2); Red Cell Distribution Width 14.8 % (11.6-14.8); White Blood Cell Count 10.3 X10^3/uL (4.5-11.0)
[2019-01-12 14:34] LABS: Hyaline Casts Urine 5-10/LPF
[2019-01-12 14:35] LABS: Culture Indicated Urine Cult Not Indicated
[2019-01-12 14:49] LABS: BUN Creatinine Ratio 25.6 (6-22); Blood Urea Nitrogen 23 mg/dL (7-17); Calcium 9.2 mg/dL (8.4-10.2); Carbon Dioxide 22 mmol/L (22-32); Chloride 100 mmol/L (98-107); Estimated Glomerular Filt Rate > 60.0 mL/min (>60); Glucose 299 mg/dL (70-100); HEMOLYSIS < 15 (0-50); Potassium 3.1 mmol/L (3.4-5.1); Sodium 139 mmol/L (137-145)
== END ==
PROVIDERS: PCP Internal Medicine; Visit Provider Internal Medicine
DX: R50.9 Fever, unspecified (principal); R53.81 Other malaise; R63.0 Anorexia
CPT/HCPCS: 80048; 81001; 85025

== ENCOUNTER 2019-01-14 20:33 | Observation (INO) | payer MEDICARE, MEDICAID, SELFPAY ==
[2018-12-09 05:17] VITALS: BMI 47.8
[2019-01-14 20:39] VITALS: BP 125/80; PULSE 108; RESP 24; TEMP 37.2; O2SAT 98
--- NOTE | 2019-01-14 20:39 | ED_ITS ---
HPI - Abdominal Pain General Chief Complaint: Abdominal Pain Stated Complaint: ABD PX x2days Time Seen by Provider: 01/14/19 20:37 Source: patient and EMS Mode of arrival: EMS Limitations: no limitations History of Present Illness HPI narrative: 58-year-old female brought over from assisted living facility for lower abdominal pain for the past 2 days and concern for potentially continued/new urinary tract infection. It was reported that the patient had been recently diagnosed and treated for the UTI however I do not have record of this. According to the Mar that she was sent over with there is no antibiotic on her list of medications. Patient does not know if she is currently on any antibiotics. She states that she does have pain with urination for the past 2 days. She does describe lower abdominal pain that she states is associated with urination. Some nausea but no vomiting. no back pain. Related Data Home Medications Medication Instructions Recorded Confirmed aspirin 81 mg PO DAILY 12/23/17 12/09/18 pen needle, diabetic 32 gauge x #100 each 01/07/18 12/09/18 5/ pen needle,diabetic dual safty 30 #100 each 01/07/18 12/09/18 gauge x 3/16 Robitussin Dm 5 ml PO Q4H PRN 12/09/18 12/09/18 furosemide 40 mg PO DAILY 12/09/18 12/09/18 hydrocortisone acetate 1 applic TOPICAL Q8H PRN 12/09/18 12/09/18 insulin glargine 60 units SUBCUT QPM 12/09/18 12/09/18 insulin glargine 70 units SUBCUT DAILY 12/09/18 12/09/18 nystatin 1 applic TOPICAL PRN PRN 12/09/18 12/09/18 omega [id number] oil [Fish Oil] 1 cap PO DAILY 12/09/18 12/09/18 Previous Rx's Medication Instructions Recorded cholecalciferol (vitamin D3) 1,000 1,000 unit PO DAILY #90 cap 03/04/18 unit capsule ondansetron HCl 4 mg tablet 4 mg PO Q6H PRN #30 tab 05/29/18 dexamethasone 2 mg tablet 2 mg PO BID #90 tab 07/04/18 oxycodone-acetaminophen 5 mg-325 1 tab PO BEDTIME PRN #30 tab 07/14/18 mg tablet folic acid 400 mcg tablet 0.4 mg PO QPM #90 tab 10/06/18 loperamide 2 mg capsule 2 mg PO Q2-4H PRN #60 cap 10/17/18 ibuprofen 400 mg tablet 400 mg PO BID #60 tab 10/24/18 pen needle, diabetic 30 gauge x #100 each 11/20/1809/18 citalopram 20 mg tablet 20 mg PO DAILY #90 tab 12/09/18 levetiracetam 500 mg PO DAILY #30 tab 12/11/18 levetiracetam 750 mg PO BEDTIME #30 tab 12/11/18 acetaminophen 325 mg tablet 650 mg PO Q4H PRN #90 tab 12/12/18 meclizine 25 mg tablet 25 mg PO Q6H PRN #90 tab 12/12/18 magnesium oxide 400 mg (241.3 mg 400 mg PO DAILY #30 tab 12/15/18 magnesium) tablet melatonin 3 mg tablet 6 mg PO BEDTIME #180 tab 12/15/18 tolterodine 4 mg capsule,extended 4 mg PO DAILY #90 cap 12/15/18 release 24 hr simvastatin 20 mg tablet 20 mg PO QPM #90 tab 12/18/18 metformin 1,000 mg tablet 1,000 mg PO BID #90 tab 12/23/18 midodrine 5 mg tablet 5 mg PO TID #90 tab 12/23/18 omeprazole 20 mg capsule,delayed 20 mg PO BID #180 cap 12/30/18 release glipizide 5 mg tablet See Rx Instructions .ROUTE 01/01/19 .COMPLEX #60 tablet potassium chloride 20 mEq See Rx Instructions .ROUTE 01/13/19 tablet,extended release(part/cryst) .COMPLEX #60 tablet Allergies Allergy/AdvReac Type Severity Reaction Status Date / Time adhesive tape Allergy Unknown Verified 01/14/19 20:39 Penicillins Allergy Unknown Verified 01/14/19 20:39 silicone Allergy Unknown Verified 01/14/19 20:39 zonisamide Allergy Unknown Verified 01/14/19 20:39 escitalopram AdvReac Unknown Verified 01/14/19 20:39 lamotrigine AdvReac Unknown Verified 01/14/19 20:39 Review of Systems Constitutional Constitutional: Denies fever(s) Cardiovascular Cardiovascular: Denies chest pain and Denies dyspnea Respiratory Respiratory: Denies dyspnea Gastrointestinal Gastrointestinal: Reports abdominal pain, Denies change in stool character, Rep orts nausea and Denies vomiting Genitourinary Genitourinary: Reports dysuria, Reports urinary incontinence and Reports urinary urgency Musculoskeletal Musculoskeletal: Denies back pain Integumentary/Breasts Skin/Breast: Denies rash Neurologic Neurologic: Denies behavioral changes Psychiatric Psychiatric: Denies behavioral changes Hematologic/Lymphatic Hematologic/Lymphatic: Denies easy bleeding and Denies easy bruising [facility] Medical History Anxiety (Chronic) Chicken pox (Resolved ~1966) Cognitive dysfunction (Chronic) Depression (Chronic) Diabetes mellitus type 2, insulin dependent (Chronic ~2007) Fecal incontinence (Chronic) Fractures (Resolved ~2017) GERD without esophagitis (Chronic) Hearing loss (Chronic ~2016) High serum lactate (Chronic) Measles (Resolved ~1963) Oligodendroglioma (Chronic ~2011) Orthostatic hypotension (Chronic) Other and unspecified hyperlipidemia (Chronic) Ovarian cyst (Chronic ~1983) Seizure disorder (Chronic) Urinary incontinence (Chronic ~2015) Vision disorder (Chronic) Surgical History Anesthesia (Resolved) H/O pelvic surgery (Inactive ~2016) History of cholecystectomy (Resolved ~1987) History of hysterectomy (Resolved ~1988) Family History Father Cancer Diabetes mellitus Hypertension Sister Hypertension Sister Cancer Grandfather Heart disease Grandmother Heart disease Social History marital status: number of children: 3 household members: other lives independently: Yes caregiver/support person: Yes housing: assisted living facility pets and animals: No education level: high school occupational status: disabled Previous occupational history: [employer] in [place]/restorationism: None leisure activities: games (Bingo) and other (Movies, TV) Smoking Status: Former smoker Tobacco: How many years used: 2 Smokeless tobacco user: other (Cigarettes) quit status: quit date established (2010) second hand exposure: No alcohol intake: never substance use type: does not use Family History Father Cancer Diabetes mellitus Hypertension Sister Hypertension Sister Cancer Grandfather Heart disease Grandmother Heart disease Social History (Reviewed 01/14/19 @ 22:17 by CHARLOTTE Flores marital status: number of children: 3 household members: other lives independently: Yes caregiver/support person: Yes housing: assisted living facility pets and animals: No education level: high school occupational status: disabled Previous occupational history: [employer] in [place]/restorationism: None leisure activities: games ([employer]) and other (Movies, TV) Smoking Status: Former smoker Tobacco: How many years used: 2 Smokeless tobacco user: other (Cigarettes) quit status: quit date established (2010) second hand exposure: No alcohol intake: never substance use type: does not use Exam Initial Vital Signs Initial Vital Signs: Vital Signs Temperature 98.9 F 01/14/19 20:39 Pulse Rate 108 H 01/14/19 20:39 Respiratory Rate 24 01/14/19 20:39 Blood Pressure 125/80 01/14/19 20:39 Pulse Oximetry 98 01/14/19 20:39 Const General: cooperative Orientation: alert and awake HENMT Head: normal to inspection and normocephalic Resp Effort & Inspection: not labored and tachypneic Auscultation: clear to auscultation bilaterally Cardio Rate: tachycardic Rhythm: regular rhythm GI Inspection: non-distended Palpation: soft and No firm Back/Spine/Pelvis Back: No CVA tenderness Skin Lesions: no lesions Rashes: no rashes Neuro General: alert and awake Speech: speech normal Extrem General: edema Psych Appearance: grossly normal Course Orders Ordered: ED Orders 01/14/19 20:48 Ictotest Urine Stat Urinalysis and Microscopic Stat Urine Culture Stat 01/14/19 21:01 Complete Blood Count AUTO DIFF Stat Comprehensive Metabolic Panel Stat Lactate (Lactic Acid) Stat Lipase Stat Procalcitonin Stat 01/14/19 21:14 Blood Culture Stat Acetaminophen (Tylenol) 650 mg PO Q6HR PRN PRN Reason: As Needed for Fever/Mild Pain Al Hydrox/Mg Hydrox/Simethicone (Maalox Plus) 30 ml PO Q6HR PRN PRN Reason: Dyspepsia Calcium Carbonate (Tums) 1,000 mg PO Q4HR PRN PRN Reason: Dyspepsia Dextrose (D50w) 25 gm IV PRN PRN PRN Reason: Hypoglycemia Enoxaparin Sodium (Lovenox) 40 mg SUBCUT DAILY VERONICA Sodium Chloride (Normal Saline 0.9%) 1,000 mls @ 125 mls/hr IV CONT VERONICA Insulin Aspart (Novolog Flexpen) 0 unit SUBCUT ACHS VERONICA; Protocol Insulin Glargine (Lantus Solostar (Pen)) 60 unit SUBCUT QPM VERONICA Levetiracetam (Keppra) 750 mg PO BEDTIME VERONICA Nystatin (Nystop) 1 applic TOP PRN PRN PRN Reason: Rash Ondansetron HCl (Zofran) 4 mg IV Q8HR PRN PRN Reason: Nausea And Vomiting Oxycodone/Acetaminophen (Percocet 5/325) 1 tab PO BEDTIME PRN PRN Reason: moderate pain/discomfort Discontinued Medications Sodium Chloride (Normal Saline 0.9%) 1,000 mls @ 1,000 mls/hr IV BOLUS ONE Stop: 01/14/19 21:40 Last Admin: 01/14/19 21:37 Dose: 1,000 mls/hr Documented by: ELISEO Ceftriaxone Sodium/Dextrose (Rocephin) 1 gm in 50 mls @ 100 mls/hr IV NOW ONE Stop: 01/14/19 22:02 Last Infusion: 01/14/19 22:08 Dose: 0 mls/hr Documented by: Admin: 01/14/19 21:37 Dose: 100 mls/hr Documented by: ELISEO Potassium Chloride (Potassium Chloride) 40 meq PO NOW ONE Stop: 01/14/19 21:46 Last Admin: 01/14/19 22:11 Dose: Not Given Documented by: ELISEO Potassium Chloride (Klor-Con M20) 40 meq PO NOW ONE Stop: 01/14/19 22:11 Vital Signs Vital signs: Vital Signs - 8 hr 01/14/19 20:39 01/14/19 21:00 Temperature 98.9 F Pulse Rate 108 H 103 H Respiratory Rate 24 16 Blood Pressure 125/80 Blood Pressure [Left Arm] 110/80 Pulse Oximetry 98 96 MDM - Abdominal Pain Lab Data Attestation: I reviewed the patient's lab results. Result diagrams: 01/14/19 21:01 01/14/19 21:01 Labs: Lab Results 01/14/19 01/14/19 01/14/19 Range/Units 20:48 21:01 21:01 WBC 9.0 (4.5-11.0) X10^3/uL RBC 3.72 L (4.0-5.2) X10^6/uL Hgb 12.5 (12.0-16.0) g/dL Hct 37.7 (36-46) % MCV 101.4 H (80-100) fL MCH 33.7 (26-34) PG MCHC 33.2 (30-36) % RDW 14.7 (11.6-14.8) % Plt Count 198 (150-400) X10^3/uL Neut % (Auto) 71.2 (50-75) % Lymph % (Auto) 18.4 L (25-40) % [place] % (Auto) 8.3 (3-14) % Eos % (Auto) 1.1 L (2-4) % Baso % (Auto) 1.0 (0-2) % Neut # (Auto) 6400 (5963-9689) /uL Lymph # (Auto) 1700 (7352-0787) /uL [place] # (Auto) 800 (0-900) /uL Eos # (Auto) 100 (0-450) /uL Baso # (Auto) 100 (0-100) /uL Sodium (137-145) mmol/L Potassium (3.4-5.1) mmol/L Chloride (98-107) mmol/L Carbon Dioxide (22-32) mmol/L BUN (7-17) mg/dL Creatinine (0.52-1.04) mg/dL Estimated GFR (>60) mL/min BUN/Creatinine Ratio (6-22) Glucose (70-100) mg/dL Lactate (0.7-2.1) mmol/L Calcium (8.4-10.2) mg/dL Magnesium (1.6-2.3) mg/dL Total Bilirubin (0.2-1.3) mg/dL AST (14-36) IU/L ALT (9-52) IU/L Alkaline Phosphatase (38-126) U/L Total Protein (6.3-8.2) g/dL Albumin (3.5-5.0) g/dL Globulin (1.7-4.1) g/dL Albumin/Globulin Ratio (1.0-2.8) Lipase (23-300) U/L Procalcitonin 0.40 (<0.5) ng/mL Urine Color Yellow Urine Appearance Cloudy Urine pH 5.0 (4.5-8.0) Ur Specific [place] 1.025 (1.000-1.035) Urine Protein 2+ H (Negative) Urine Glucose (UA) 1+ H (Negative) g/dL Urine Ketones Trace H (NEGATIVE) Urine Occult Blood 3+ H (Negative) Urine Nitrate Positive (Negative) Urine Bilirubin 1+ H (NEGATIVE) Urine Ictotest Negative (Negative) Urine Urobilinogen 1.0 (0.2) E.U./dL Ur Leukocyte Esterase 1+ H (NEGATIVE) Urine RBC >100/hpf H (0-5/HPF) Urine WBC >100/hpf H (0-5/HPF) Urine Bacteria Moderate (10-30) H (None) Ur Culture Indicated? 01/14/19 01/14/19 01/14/19 Range/Units 21:01 21:01 21:01 WBC (4.5-11.0) X10^3/uL RBC (4.0-5.2) X10^6/uL Hgb (12.0-16.0) g/dL Hct (36-46) % MCV (80-100) fL MCH (26-34) PG MCHC (30-36) % RDW (11.6-14.8) % Plt Count (150-400) X10^3/uL Neut % (Auto) (50-75) % Lymph % (Auto) (25-40) % [place] % (Auto) (3-14) % Eos % (Auto) (2-4) % Baso % (Auto) (0-2) % Neut # (Auto) (1403-4252) /uL Lymph # (Auto) (3657-3415) /uL [place] # (Auto) (0-900) /uL Eos # (Auto) (0-450) /uL Baso # (Auto) (0-100) /uL Sodium 137 (137-145) mmol/L Potassium 2.8 L (3.4-5.1) mmol/L Chloride 102 (98-107) mmol/L Carbon Dioxide 27 (22-32) mmol/L BUN 24 H (7-17) mg/dL Creatinine 0.80 (0.52-1.04) mg/dL Estimated GFR > 60.0 (>60) mL/min BUN/Creatinine Ratio 30.0 H (6-22) Glucose 253 H (70-100) mg/dL Lactate 3.5 H (0.7-2.1) mmol/L Calcium 9.0 (8.4-10.2) mg/dL Magnesium 1.0 L (1.6-2.3) mg/dL Total Bilirubin 0.5 (0.2-1.3) mg/dL AST 131 H (14-36) IU/L ALT 115 H (9-52) IU/L Alkaline Phosphatase 223 H (38-126) U/L Total Protein 6.4 (6.3-8.2) g/dL Albumin 3.6 (3.5-5.0) g/dL Globulin 2.8 (1.7-4.1) g/dL Albumin/Globulin Ratio 1.3 (1.0-2.8) Lipase 706 H (23-300) U/L Procalcitonin (<0.5) ng/mL Urine Color Urine Appearance Urine pH (4.5-8.0) Ur Specific [place] (1.000-1.035) Urine Protein (Negative) Urine Glucose (UA) (Negative) g/dL Urine Ketones (NEGATIVE) Urine Occult Blood (Negative) Urine Nitrate (Negative) Urine Bilirubin (NEGATIVE) Urine Ictotest (Negative) Urine Urobilinogen (0.2) E.U./dL Ur Leukocyte Esterase (NEGATIVE) Urine RBC (0-5/HPF) Urine WBC (0-5/HPF) Urine Bacteria (None) Ur Culture Indicated? [facility] Narrative Medical decision making narrative: Patient does not have a white count Cece left shift however does have a lactate of 3.5. Also has a slightly elevated procalcitonin. Her urinalysis is nitrite positive with white blood cells. There is no prior urine cultures on this patient. She does have nausea but no vomiting. she was given fluids and IV antibiotics. Given her elevated lactate and her nitrite positive urine will admit for IV treatment for her urinary tract infection. Discussed the case with Dr. Yun who will admit. Patient was informed of diagnosis and admission. She expressed understanding and agreement. Discharge Plan Departure Patient Disposition: Admitted As Inpatient Clinical Impression: Acute UTI, Hypokalemia Admit Date/Time: 01/14/19 21:48 Admit Provider: Janice Yun
[2019-01-14 20:53] LABS: Appearance Urine UA CLOUDY; Bilirubin Urine UA 1+ (NEGATIVE); Color Urine UA YELLOW; Glucose Urine UA 1+ g/dL (Negative); Ketones Urine UA TRACE (NEGATIVE); Leukocyte Esterase Urine UA 1+ (NEGATIVE); Nitrite Urine UA POSITIVE (Negative); Occult Blood Urine UA 3+ (Negative); Protein Urine UA 2+ (Negative); Specific Gravity Urine UA 1.025 (1.000-1.035)
[2019-01-14 20:59] LABS: Bacteria Urine Moderate (10-30); RBC Urine >100/HPF (0-5/HPF); WBC Urine >100/HPF (0-5/HPF)
[2019-01-14 21:00] VITALS: BP 110/80; PULSE 103; RESP 16; O2SAT 96
[2019-01-14 21:16] LABS: Add Manual Diff / Slide Review NO; Basophils Absolute Auto 100 /uL (0-100); Eosinophils Absolute Auto 100 /uL (0-450); Eosinophils Percent Auto 1.1 % (2-4); Hematocrit 37.7 % (36-46); Hemoglobin 12.5 g/dL (12.0-16.0); Lymphocytes Absolute Auto 1700 /uL (1100-4500); Lymphocytes Percent Auto 18.4 % (25-40); Mean Corpuscular HGB Conc 33.2 % (30-36); Mean Corpuscular Hemoglobin 33.7 PG (26-34); Mean Corpuscular Volume 101.4 fL (80-100); Monocytes Absolute Auto 800 /uL (0-900); Monocytes Percent Auto 8.3 % (3-14); Neutrophils Absolute Auto 6400 /uL (1500-7000); Neutrophils Percent Auto 71.2 % (50-75); Platelet Count 198 X10^3/uL (150-400); Red Blood Cell Count 3.72 X10^6/uL (4.0-5.2); Red Cell Distribution Width 14.7 % (11.6-14.8)
[2019-01-14 21:25] LABS: Ictotest Urine Negative (Negative)
[2019-01-14 21:25] LABS: Alanine Aminotransferase 115 IU/L (9-52); Albumin 3.6 g/dL (3.5-5.0); Albumin Globulin Ratio 1.3 (1.0-2.8); Alkaline Phosphatase 223 U/L (38-126); Aspartate Aminotransferase 131 IU/L (14-36); Bilirubin Total 0.5 mg/dL (0.2-1.3); Blood Urea Nitrogen 24 mg/dL (7-17); Carbon Dioxide 27 mmol/L (22-32); Chloride 102 mmol/L (98-107); Estimated Glomerular Filt Rate > 60.0 mL/min (>60); Globulin 2.8 g/dL (1.7-4.1); Glucose 253 mg/dL (70-100); HEMOLYSIS < 15 (0-50); Lipase 706 U/L (23-300); Potassium 2.8 mmol/L (3.4-5.1); Sodium 137 mmol/L (137-145); Total Protein 6.4 g/dL (6.3-8.2)
[2019-01-14 21:27] LABS: Lactate (Lactic Acid) 3.5 mmol/L (0.7-2.1)
[2019-01-14] MEDS: CEFTRIAXONE 1 GM/50 ML FROZ.PIGGY IV (21:37)
[2019-01-14] MEDS: SODIUM CHLORIDE 0.9% 1,000 ML 1000 ML IV (21:37)
[2019-01-14] MEDS: POTASSIUM CHLORIDE 20 MEQ TAB 40 MEQ PO ×2 (22:23→23:45)
[2019-01-14 22:33] VITALS: BMI 47.7
[2019-01-14 22:40] VITALS: BP 124/75; PULSE 99; RESP 16; TEMP 36.1
[2019-01-14] MEDS: INSULIN GLARGINE 100 UNIT/ML 3ML PEN 60 UNIT SUBCUT (22:46)
[2019-01-14 23:00] VITALS: O2SAT 87
[2019-01-14 23:09] LABS: Reflexed Lactate in 2 Hours Y
[2019-01-14] MEDS: SODIUM CHLORIDE 0.9% 1,000 ML 125 ML IV (23:17)
[2019-01-14] MEDS: levETIRAcetam 250 MG TABLET 750 MG PO (23:19)
[2019-01-14 23:27] VITALS: PULSE 92; RESP 20; O2SAT 91
[2019-01-14] MEDS: MAGNESIUM SULFATE 4 GM/100 ML PIGGYBACK IV (23:36)
--- NOTE | 2019-01-14 23:40 | PC.NURSE ---
bolus infused. oriented pt to room. notified regarding pt's potassium level and magnesium. VTO for 4mg Mg and 40meq of potassium. tele ordered. administered her insulin and keppra. call light in reach. bed alarm active.
[2019-01-14 23:51] VITALS: O2SAT 93
[2019-01-14 23:56] LABS: Lactate 2HR (Lactic Acid Rflx) 3.1 mmol/L (0.7-2.1)
[2019-01-15] VITALS (9 sets, daily range): BP systolic 120–139; BP diastolic 66–87; PULSE 89–105; RESP 16–20; TEMP 36–36.4; O2SAT 93–99
[2019-01-15 06:16] LABS: Add Manual Diff / Slide Review NO; Basophils Absolute Auto 100 /uL (0-100); Basophils Percent Auto 0.8 % (0-2); Eosinophils Absolute Auto 0 /uL (0-450); Eosinophils Percent Auto 0.4 % (2-4); Hematocrit 35.3 % (36-46); Hemoglobin 11.8 g/dL (12.0-16.0); Lymphocytes Absolute Auto 1200 /uL (1100-4500); Lymphocytes Percent Auto 15.8 % (25-40); Mean Corpuscular HGB Conc 33.3 % (30-36); Mean Corpuscular Hemoglobin 33.9 PG (26-34); Mean Corpuscular Volume 101.6 fL (80-100); Monocytes Absolute Auto 600 /uL (0-900); Monocytes Percent Auto 8.6 % (3-14); Neutrophils Absolute Auto 5500 /uL (1500-7000); Neutrophils Percent Auto 74.4 % (50-75); Platelet Count 172 X10^3/uL (150-400); Red Blood Cell Count 3.48 X10^6/uL (4.0-5.2); Red Cell Distribution Width 14.7 % (11.6-14.8); White Blood Cell Count 7.4 X10^3/uL (4.5-11.0)
[2019-01-15 06:22] LABS: Blood Urea Nitrogen 18 mg/dL (7-17); Calcium 8.3 mg/dL (8.4-10.2); Carbon Dioxide 25 mmol/L (22-32); Chloride 107 mmol/L (98-107); Estimated Glomerular Filt Rate > 60.0 mL/min (>60); Glucose 161 mg/dL (70-100); HEMOLYSIS < 15 (0-50); Potassium 3.6 mmol/L (3.4-5.1); Sodium 139 mmol/L (137-145)
[2019-01-15] MEDS: SODIUM CHLORIDE 0.9% 1,000 ML 125 ML IV (07:10)
--- NOTE | 2019-01-15 07:40 | PM.HP.1 ---
History of Present Illness History of Present Illness Date Patient Seen: 01/15/19 Time Patient Seen: 07:40 Chief complaint: ABD PX x2days Narrative: Patient admitted by the emergency department late in the evening on January 14. She was transported by EMS from her assisted living facility ([facility]) over concerns regarding possible UTI. Patient had a recent workup including urinalysis which did not show evidence of a UTI and yet she was transported over concerns from staff at the facility. Patient did report to staff in emergency department that she had had some pain with urination for the last 2 days. Also had some lower abdominal pain associated with urination. Patient's workup in the ED was essentially unremarkable. She had a slightly elevated lactate level however and an abnormal urinalysis (as opposed to urinalysis obtained just 2 days prior). She was afebrile, with a normal white blood cell count. Other minor lab abnormalities present but all of which had been seen previously in this complex patient with multiple issues ongoing. Patient now complaining of some upper abdominal pain but no change in appetite awaiting breakfast. Also reporting some nausea. When asked does talked about urinary symptoms but does not volunteer that. Blood sugars have been elevated which is consistent for this patient due to dietary indiscretion. She was recently hospitalized at [facility] and blood sugars were entirely normal and well controlled when she was maintained on a controlled diet. Patient also has a chronically elevated lactate which has been documented over and over again. Uncertain as to etiology but certainly that is not a good marker for following possible infection or sepsis in this patient Patient History Medical History Anxiety (Chronic) Chicken pox (Resolved ~1966) Cognitive dysfunction (Chronic) Depression (Chronic) Diabetes mellitus type 2, insulin dependent (Chronic ~2007) Fecal incontinence (Chronic) Fractures (Resolved ~2017) GERD without esophagitis (Chronic) Hearing loss (Chronic ~2016) High serum lactate (Chronic) Measles (Resolved ~1963) Oligodendroglioma (Chronic ~2011) Orthostatic hypotension (Chronic) Other and unspecified hyperlipidemia (Chronic) Ovarian cyst (Chronic ~1983) Seizure disorder (Chronic) Urinary incontinence (Chronic ~2015) Vision disorder (Chronic) Surgical History Anesthesia (Resolved) H/O pelvic surgery (Inactive ~2016) History of cholecystectomy (Resolved ~1987) History of hysterectomy (Resolved ~1988) Family History Father Cancer Diabetes mellitus Hypertension Sister Hypertension Sister Cancer Grandfather Heart disease Grandmother Heart disease Social History marital status: number of children: 3 household members: caregiver and other lives independently: Yes caregiver/support person: Yes housing: assisted living facility pets and animals: No education level: high school occupational status: disabled Previous occupational history: [employer] in [place] [employer]/adventism: None leisure activities: games ([employer]) and other (Movies, TV) Smoking Status: Former smoker Tobacco: How many years used: 2 Smokeless tobacco user: other (Cigarettes) quit status: quit date established (2010) second hand exposure: No alcohol intake: never substance use type: does not use Family & Social History Family History Father Cancer Diabetes mellitus Hypertension Sister Hypertension Sister Cancer Grandfather Heart disease Grandmother Heart disease Social History: household members caregiver,other Prior Living Arrangements House lives independently Yes caregiver/support person Yes Safety & Behavioral: Feels Safe in Current Yes Environment Been Physically Hurt or No Threatened By a Person Suicidal Ideation Description None Suicide Plan Description No Plan Tobacco & Substance use: Smoking Status Former smoker alcohol intake never alcohol intake frequency holiday/special occasion Substance Use Type does not use Meds Home Medications and Allergies Home Medications Medication Instructions Recorded Confirmed Type aspirin 81 mg PO DAILY 12/23/17 01/15/19 History pen needle, diabetic 32 gauge x #100 each 01/07/18 12/09/18 History 5/ pen needle,diabetic dual safty 30 #100 each 01/07/18 12/09/18 History gauge x 3/16 cholecalciferol (vitamin D3) 1,000 1,000 unit PO DAILY #90 cap 03/04/18 01/15/19 Rx unit capsule ondansetron HCl 4 mg tablet 4 mg PO Q6H PRN #30 tab 05/29/18 01/15/19 Rx dexamethasone 2 mg tablet 2 mg PO BID #90 tab 07/04/18 01/15/19 Rx oxycodone-acetaminophen 5 mg-325 1 tab PO BEDTIME PRN #30 tab 07/14/18 01/15/19 Rx mg tablet folic acid 400 mcg tablet 0.4 mg PO QPM #90 tab 10/06/18 01/15/19 Rx loperamide 2 mg capsule 2 mg PO Q2-4H PRN #60 cap 10/17/18 01/15/19 Rx ibuprofen 400 mg tablet 400 mg PO BID #60 tab 10/24/18 01/15/19 Rx pen needle, diabetic 30 gauge x #100 each 11/20/18 12/09/18 Rx 09/18 Robitussin Dm 5 ml PO Q4H PRN 12/09/18 01/15/19 History citalopram 20 mg tablet 20 mg PO DAILY #90 tab 12/09/18 01/15/19 Rx furosemide 40 mg PO DAILY 12/09/18 01/15/19 History hydrocortisone acetate 1 applic TOPICAL Q8H PRN 12/09/18 01/15/19 History insulin glargine 60 units SUBCUT QPM 12/09/18 01/15/19 History insulin glargine 70 units SUBCUT DAILY 12/09/18 01/15/19 History nystatin 1 applic TOPICAL PRN PRN 12/09/18 01/15/19 History omega 4-ocr-wed-fish oil [Fish Oil] 1 cap PO DAILY 12/09/18 01/15/19 History levetiracetam 500 mg PO DAILY #30 tab 12/11/18 01/15/19 Rx levetiracetam 750 mg PO BEDTIME #30 tab 12/11/18 01/15/19 Rx acetaminophen 325 mg tablet 650 mg PO Q4H PRN #90 tab 12/12/18 01/15/19 Rx meclizine 25 mg tablet 25 mg PO Q6H PRN #90 tab 12/12/18 01/15/19 Rx magnesium oxide 400 mg (241.3 mg 400 mg PO DAILY #30 tab 12/15/18 01/15/19 Rx magnesium) tablet melatonin 3 mg tablet 6 mg PO BEDTIME #180 tab 12/15/18 01/15/19 Rx tolterodine 4 mg capsule,extended 4 mg PO DAILY #90 cap 12/15/18 01/15/19 Rx release 24 hr simvastatin 20 mg tablet 20 mg PO QPM #90 tab 12/18/18 01/15/19 Rx metformin 1,000 mg tablet 1,000 mg PO BID #90 tab 12/23/18 01/15/19 Rx midodrine 5 mg tablet 5 mg PO TID #90 tab 12/23/18 01/15/19 Rx omeprazole 20 mg capsule,delayed 20 mg PO BID #180 cap 12/30/18 01/15/19 Rx release glipizide 5 mg PO BID 01/15/19 01/15/19 History potassium chloride 40 meq PO DAILY 01/15/19 01/15/19 History Allergies Allergy/AdvReac Type Severity Reaction Status Date / Time adhesive tape Allergy Unknown Verified 01/14/19 20:39 Penicillins Allergy Unknown Verified 01/14/19 20:39 silicone Allergy Unknown Verified 01/14/19 20:39 zonisamide Allergy Unknown Verified 01/14/19 20:39 escitalopram AdvReac Unknown Verified 01/14/19 20:39 lamotrigine AdvReac Unknown Verified 01/14/19 20:39 Review of Systems Constitutional Constitutional: Denies excessive sweating, Denies fever(s), Denies headache(s), Reports weakness, Denies weight gain and Denies weight loss Eyes Eyes: Denies change in vision, Denies itchy eyes, Denies loss of vision and Denies other visual disturbances ENT Ears, Nose, Mouth, and Throat: No change in voice, No difficulty swallowing, No dizziness, No ear pain, No headache(s), No hoarseness, No lip swelling, No neck pain, No sore throat, No throat swelling and No tongue swelling Cardiovascular Cardiovascular: Denies chest pain, Denies fainting, Denies fast heart rate, Denies irregular heart rhythm, Denies rapid, pounding, or irregular heartbeat, Denies shortness of breath, Denies shortness of breath with activity and Denies slow heart rate Respiratory Respiratory: Denies chest congestion, Denies cough, Denies hemoptysis, Denies dyspnea, Denies dyspnea on exertion, Denies stridor and Denies wheezing Gastrointestinal Gastrointestinal: Denies bloating, Denies change in bowel habits, Denies change in stool character, Denies dysphagia, Denies vomiting and Denies hematemesis Genitourinary Genitourinary: Denies hematuria, Denies urinary frequency, Denies difficulty voiding, Reports urinary urgency and Reports pelvic pain Musculoskeletal Musculoskeletal: Denies abnormal gait, Denies myalgias, Denies arthralgias, Denies limited range of motion and Denies neck pain Integumentary/Breasts Skin/Breast: Denies rash Neurologic Neurologic: Denies abnormal speech, Denies abnormal gait, Denies dizziness, Denies syncope, Denies headache(s), Denies loss of vision, Denies memory loss, Denies seizure-like activity, Denies paresthesias and Reports weakness Comments: No changes over baseline as patient does have baseline issues related to her oligodendroglioma Psychiatric Psychiatric: Denies change in appetite and Denies memory loss Endocrine Endocrine: Denies excessive sweating, Denies flushing, Denies polyuria and Denies palpitations Hematologic/Lymphatic Hematologic/Lymphatic: Denies easy bleeding, Denies easy bruising and Denies lymphadenopathy Allergic/Immunologic Allergic/Immunologic: Denies urticaria, Denies itchy eyes, Denies lip swelling, Denies throat swelling, Denies tongue swelling and Denies wheezing Exam Vital Signs (past 8 hours): - 01/14/19 23:51 01/15/19 00:30 01/15/19 05:10 Temperature 97.1 F L 97.1 F L Pulse Rate 89 92 H Respiratory Rate 20 18 Blood Pressure 131/87 139/70 Pulse Oximetry 93 93 96 Oxygen Delivery Method Nasal Cannula Oxygen Flow Rate 1 Narrative Exam Narrative: Middle-aged female who looks older than stated age in no obvious distress lying in her hospital bed with obvious cushingoid changes in her face HEENT-normocephalic Neck-no bruits Lungs-good breath sounds without wheezes Heart-regular rate and rhythm no murmur Abdomen-positive bowel tones soft nontender nondistended obesity limits exam somewhat but no noted hepatosplenomegaly no masses palpable Extremities-chronic 2+ edema at the ankles bilaterally otherwise unremarkable Neuro-patient moves all 4 extremities. No abnormal reflexes. Gait not tested. Gross sensation and movement normal Objective Labs Result Diagrams: 01/15/19 05:39 01/15/19 05:39 Labs: Laboratory Results - last 24 hr 01/14/19 01/14/19 01/14/19 20:48 21:01 21:01 WBC 9.0 RBC 3.72 L Hgb 12.5 Hct 37.7 MCV 101.4 H MCH 33.7 MCHC 33.2 RDW 14.7 Plt Count 198 Neut % (Auto) 71.2 Lymph % (Auto) 18.4 L Beaver % (Auto) 8.3 Eos % (Auto) 1.1 L Baso % (Auto) 1.0 Neut # (Auto) 6400 Lymph # (Auto) 1700 Beaver # (Auto) 800 Eos # (Auto) 100 Baso # (Auto) 100 Sodium Potassium Chloride Carbon Dioxide BUN Creatinine Estimated GFR BUN/Creatinine Ratio Glucose Lactate Calcium Magnesium Total Bilirubin AST ALT Alkaline Phosphatase Total Protein Albumin Globulin Albumin/Globulin Ratio Lipase Procalcitonin 0.40 Urine Color Yellow Urine Appearance Cloudy Urine pH 5.0 Ur Specific [place] 1.025 Urine Protein 2+ H Urine Glucose (UA) 1+ H Urine Ketones Trace H Urine Occult Blood 3+ H Urine Nitrate Positive Urine Bilirubin 1+ H Urine Ictotest Negative Urine Urobilinogen 1.0 Ur Leukocyte Esterase 1+ H Urine RBC >100/hpf H Urine WBC >100/hpf H Urine Bacteria Moderate (10-30) H Ur Culture Indicated? 01/14/19 01/14/19 01/14/19 21:01 21:01 21:01 WBC RBC Hgb Hct MCV MCH MCHC RDW Plt Count Neut % (Auto) Lymph % (Auto) Beaver % (Auto) Eos % (Auto) Baso % (Auto) Neut # (Auto) Lymph # (Auto) [place] # (Auto) Eos # (Auto) Baso # (Auto) Sodium 137 Potassium 2.8 L Chloride 102 Carbon Dioxide 27 BUN 24 H Creatinine 0.80 Estimated GFR > 60.0 BUN/Creatinine Ratio 30.0 H Glucose 253 H Lactate 3.5 H Calcium 9.0 Magnesium 1.0 L Total Bilirubin 0.5 AST 131 H ALT 115 H Alkaline Phosphatase 223 H Total Protein 6.4 Albumin 3.6 Globulin 2.8 Albumin/Globulin Ratio 1.3 Lipase 706 H Procalcitonin Urine Color Urine Appearance Urine pH Ur Specific [place] Urine Protein Urine Glucose (UA) Urine Ketones Urine Occult Blood Urine Nitrate Urine Bilirubin Urine Ictotest Urine Urobilinogen Ur Leukocyte Esterase Urine RBC Urine WBC Urine Bacteria Ur Culture Indicated? 01/14/19 01/15/19 01/15/19 23:36 05:39 05:39 WBC 7.4 RBC 3.48 L Hgb 11.8 L Hct 35.3 L MCV 101.6 H MCH 33.9 MCHC 33.3 RDW 14.7 Plt Count 172 Neut % (Auto) 74.4 Lymph % (Auto) 15.8 L Beaver % (Auto) 8.6 Eos % (Auto) 0.4 L Baso % (Auto) 0.8 Neut # (Auto) 5500 Lymph # (Auto) 1200 [place] # (Auto) 600 Eos # (Auto) 0 Baso # (Auto) 100 Sodium 139 Potassium 3.6 Chloride 107 Carbon Dioxide 25 BUN 18 H Creatinine 0.60 Estimated GFR > 60.0 BUN/Creatinine Ratio 30.0 H Glucose 161 H Lactate 3.1 H Calcium 8.3 L Magnesium Total Bilirubin AST ALT Alkaline Phosphatase Total Protein Albumin Globulin Albumin/Globulin Ratio Lipase Procalcitonin Urine Color Urine Appearance Urine pH Ur Specific [place] Urine Protein Urine Glucose (UA) Urine Ketones Urine Occult Blood Urine Nitrate Urine Bilirubin Urine Ictotest Urine Urobilinogen Ur Leukocyte Esterase Urine RBC Urine WBC Urine Bacteria Ur Culture Indicated? Assessment & Plan Assessment & Plan narrative: 1. UTI based on urinalysis with elevated lactate. Staff at her facility apparently noticed some altered behavior as well. She received a dose of IV ceftriaxone in the ER I will continue that for now while awaiting cultures. Patient has a persistently elevated serum lactate and I do not believe that is useful in monitoring anything at all in this particular patient. Uncertain as to the etiology for her elevated lactate but has not been measured normal in over a year's time. 2. Seizure disorder due to oligodendroglioma-continue patient's antiepileptic medication 3. Diabetes-continue patient's usual dose insulin and a diabetic diet monitored here in the hospital. May not require quite as much insulin but will monitor carefully. 4. Hypokalemia-addressed emergency department and much improved this morning. Continue oral potassium supplementation along with her chronic diuretic therapy, but I will increase doses 5. Patient's other medical problems appear to be stable. Continue usual medications. 6. VTE prophylaxis-continue with Lovenox Overall patient seems to be at baseline by my evaluation today. Probably deserves continue monitoring here in the hospital for another 24 hours and then consider discharge back to her facility, if no additional problems are identified. Given this patient's overall complexity with her medical issues I wonder about her current facility whether they are capable of managing her medical issues. However there does not appear to be a reasonable alternative as she does not qualify for usp placement etc.
[2019-01-15] MEDS: CEFTRIAXONE 1 GM/50 ML FROZ.PIGGY IV ×2 (08:28→21:12)
[2019-01-15] MEDS: ENOXAPARIN 40 MG/0.4 ML SYRINGE SUBCUT (08:28)
[2019-01-15] MEDS: INSULIN ASPART 100 UNIT/ML INSULN PEN SUBCUT ×4 (08:35→21:12)
[2019-01-15] MEDS: FUROSEMIDE 40 MG TABLET PO (10:31)
[2019-01-15] MEDS: MAGNESIUM OXIDE 400 MG TABLET PO (10:32)
[2019-01-15] MEDS: CITALOPRAM 20 MG TABLET PO (10:32)
[2019-01-15] MEDS: TOLTERODINE LA 4 MG PO (10:32)
[2019-01-15] MEDS: levETIRAcetam 250 MG TABLET 500 MG PO (10:32)
[2019-01-15] MEDS: INSULIN GLARGINE 100 UNIT/ML 3ML PEN 70 UNIT SUBCUT (10:33)
[2019-01-15] MEDS: PANTOPRAZOLE 20 MG TABLET PO ×2 (10:36→21:12)
[2019-01-15] MEDS: MIDODRINE HCL 5 MG TABLET PO ×2 (12:45→17:13)
--- NOTE | 2019-01-15 13:59 | CM.IDA ---
Initial DCP/Assessment: Patient is a 58yr old female, resident of [facility] admitted to [facility]for UTI. PCP is Dr. Vaughn. Primary payor is 1)Medicare 2)Medicaid. According to review of Dr Vaughn's H+P; pt may be stable to DC back [facility] tomorrow after addtl. observation here at . Placed call to Violet at [facility] P# [phone], she will send someone to do a bed side assessment this afternoon/evening in preparation for DC tomorrow. Then placed call to pt's sister Lena, rodney Mann in background on this call, they explained they expected pt to return home to [facility] when medically stable to do so. P: DC back to [facility] once medically stable, via w/c van. Following closely for coordination of safe DCP. MERRY Rangel Discharge Planning/Care Management CM Discharge Assessment Start: 01/15/19 13:48 Freq: Status: Active Protocol: Document 01/15/19 13:49 NISSA (Rec: 01/15/19 13:59 [id number]) Discharge Planning Assessment Assigned Activity Leader MERRY Amin DPOA/Assigned Designee Name Lena Millan, sister and mom Mackenzie Talavera Contact Information Lena: [phone] Mackenzie: [phone] Advance Directives? Yes: POLST History Provided By Patient,Family Member,Medical Record Has Patient been admitted in last 30 No days? Comment 8.6.19, here after a fall at [facility] Prior Living Arrangements Assisted Living Household Members caregiver,other Facility Name Admitted From: [facility] Willing to Return to Facility? Yes Independent with ADL's No Is patient alert and oriented? No: cognitive dysfunction Needs Assistance With Bathing,Eating,Grooming,Meal Prep,Toileting,Managing Medications,Home Chores / Shopping Comment w/c bound Comment Pending assessment by [facility]. Transportation Arrangement Likely back to [facility] via their w /c van Additional Comment Patient is enrolled in [facility] program. They check on patient monthly at [facility]. Contact is Ajay Lazo ph# . Review Status In Process
[2019-01-15] MEDS: dexAMETHasone 4 MG TABLET 2 MG PO (17:12)
[2019-01-15] MEDS: glipiZIDE 5 MG TABLET PO (17:12)
[2019-01-15] MEDS: METFORMIN HCL 500 MG TABLET 1000 MG PO (17:13)
[2019-01-15] MEDS: POTASSIUM CHLORIDE 20 MEQ TAB 40 MEQ PO (17:13)
[2019-01-15] MEDS: INSULIN GLARGINE 100 UNIT/ML 3ML PEN 60 UNIT SUBCUT (17:14)
[2019-01-15] MEDS: SIMVASTATIN 20 MG TABLET PO (21:12)
[2019-01-15] MEDS: levETIRAcetam 250 MG TABLET 750 MG PO (21:12)
[2019-01-16] VITALS: BP 123/70; PULSE 96; RESP 18; TEMP 36.3; O2SAT 97
--- NOTE | 2019-01-16 02:07 | PC.NURSE ---
Addendum entered by Allison Aecvedo R.N. 01/16/19 06:09: Incontinent of loose, brown stool + urine but also states she has to have more BM so gotten up to [facility] with Jarred + 2 assists. Original Note: Patient is oriented to self and birthday only. Breath sounds diminished but CTA with RA sat of 97%. HRR. Denies nausea. BT present and abdomen is soft. Continent of urine at times but has been mostly incontinent; states she still has burning with urination. Able to turn self in bed. No change in skin condition. Continues with 3+ bilateral LE edema. Denies any pain. Fall risk score is high and bed alarm is activated.
[2019-01-16] MEDS: PANTOPRAZOLE 20 MG TABLET PO (05:45)
[2019-01-16] MEDS: MIDODRINE HCL 5 MG TABLET PO ×2 (05:45→12:23)
[2019-01-16 06:00] VITALS: BP 136/67; PULSE 88; RESP 17; TEMP 36.5; O2SAT 97
[2019-01-16 07:56] VITALS: BP 146/80; PULSE 91; RESP 24; TEMP 36.5; O2SAT 98
--- NOTE | 2019-01-16 07:56 | P.DS_ITS ---
History of Present Illness History of Present Illness Chief complaint: ABD PX x2days Narrative: Patient admitted by the emergency department late in the evening on January 14. She was transported by EMS from her assisted living facility ([facility]) over concerns regarding possible UTI. Patient had a recent workup including urinalysis which did not show evidence of a UTI and yet she was transp orted over concerns from staff at the facility. Patient did report to staff in emergency department that she had had some pain with urination for the last 2 days. Also had some lower abdominal pain associated with urination. Patient's workup in the ED was essentially unremarkable. She had a slightly elevated lactate level however and an abnormal urinalysis (as opposed to urinalysis obtained just 2 days prior). She was afebrile, with a normal white blood cell count. Other minor lab abnormalities present but all of which had been seen previously in this complex patient with multiple issues ongoing. Patient now complaining of some upper abdominal pain but no change in appetite awaiting breakfast. Also reporting some nausea. When asked does talked about urinary symptoms but does not volunteer that. Blood sugars have been elevated which is consistent for this patient due to dietary indiscretion. She was recently hospitalized at [facility] and blood sugars were entirely normal and well controlled when she was maintained on a controlled diet. Patient also has a chronically elevated lactate which has been documented over and over again. Uncertain as to etiology but certainly that is not a good marker for following possible infection or sepsis in this patient Discharge Providers Provider Date of admission: 01/14/19 21:48 Discharge Date: 01/16/19 Primary care physician: Naveen Vaughn MD Consults: 01/14/19 22:48 Consult to Dietitian, Adult Routine Comment: Reason For Exam: pt reports unintentional weight loose in last 3mo Consult to Ship [employer] Routine Comment: 01/15/19 08:22 Consult to Discharge Planning Routine Comment: Discharge provider: Naveen Vaughn MD Summary Hospital Course Discharge Diagnosis: 1. UTI growing E coli 2. Abdominal pain 3. Hypokalemia 4. Type 2 diabetes poorly controlled 5. Seizure disorder 6. Oligodendroglioma 7. GERD 8. Chronic diarrhea 9. Cognitive dysfunction 10. Severe peripheral edema 11. Persistently elevated serum lactate without clear etiology 12. Depression Hospital Course: Patient was transported from her care facility because of complaints of abdominal pain. She has seen in the ER and workup showed evidence of a possible UTI based on dipstick urine sample. This was new for her as she had just had her urine checked 2 days prior and did not show evidence of infection at that time. Patient was started on IV antibiotics. She also was noted to have an elevated lactate level which is been the case persistently over the last year or more and because of these reasons was admitted to the hospital She subsequent has grown E coli from her urine which is resistant to fluoroquinolones but otherwise sensitive to most usual antibiotics. Patient remained hemodynamically stable. No new issues were identified. Abdominal pain seemed to disappear. Patient had persistent chronic diarrhea which she always has and perhaps somewhat exacerbated by the IV antibiotics Patient's blood sugar control was not excellent but for this particular patient was actually quite outstanding. She has significant dietary indiscretions in her care facility resulting in blood sugars consistently and regularly in greater than 300. When she is in a more controlled diet her numbers are more like they were here in the 100-200 range or so. Patient also has severe lower extremity peripheral edema. She is basically in mobile at her care facility spends much today in a wheelchair with her feet dependent which is felt to be a particular cause of this. She continues on furosemide and hydrochlorothiazide was added during this hospitalization effort to help reduce her edema some. She also presented somewhat hypokalemic and potassium dose was increased upon discharge specially knowing she will have hydrochlorothiazide added Her other medical problems including her brain tumor seizure disorder on the basis of that her mild cognitive dysfunction etc all seem stable Patient will be return to her assisted living facility, [facility], for continued management and care there. Status at Discharge Cognitive/behavioral status at discharge: at baseline, confused Functional status at discharge: wheelchair bound Overall status at discharge: patient is back to baseline Time Spent with Patient Time spent: Greater than 30 minutes Exam Vital Signs (past 8 hours): - 01/16/19 00:00 01/16/19 06:00 Temperature 97.4 F L 97.7 F Pulse Rate 96 H 88 Respiratory Rate 18 17 Blood Pressure 123/70 136/67 Pulse Oximetry 97 97 Fraction of Inspired Oxygen 24 Oxygen Delivery Method Room Air Oxygen Flow Rate 0 Objective Labs Result Diagrams: 01/15/19 05:39 01/15/19 05:39 Discharge Plan Discharge Plan Patient Disposition: Assisted Living Other facility: [facility] Under care of provider: MD Tito Labs: BMP 1 week Discharge Med Rec/Prescriptions Prescriptions: New hydrochlorothiazide 12.5 mg tablet 25 mg PO DAILY Qty: 90 RF: 3 sulfamethoxazole-trimethoprim 800-160 mg tablet 1 tab PO Q12H 7 Days Qty: 14 RF: 0 Continued cholecalciferol (vitamin D3) 1,000 unit capsule 1,000 unit PO DAILY Qty: 90 RF: 3 ondansetron HCl 4 mg tablet 4 mg PO Q6H PRN (Reason: Nausea And Vomiting) Qty: 30 RF: 0 oxycodone-acetaminophen 5-325 mg tablet 1 tab PO BEDTIME PRN (Reason: moderate pain/discomfort) Qty: 30 RF: 0 folic acid 400 mcg tablet 0.4 mg PO QPM Qty: 90 RF: 1 loperamide [Imodium A-D] 2 mg capsule 2 mg PO Q2-4H PRN (Reason: loose stool) Qty: 60 RF: 0 ibuprofen 400 mg tablet 400 mg PO BID Qty: 60 RF: 3 (DME) Easy Touch Pen Needle 30 gauge x 5/16 needle See Dose Instructions .ROUTE .MEDSUPPLY Qty: 100 RF: 1 citalopram 20 mg tablet 20 mg PO DAILY Qty: 90 RF: 1 levetiracetam 250 mg tablet 500 mg PO DAILY Qty: 30 RF: 3 levetiracetam 250 mg tablet 750 mg PO BEDTIME Qty: 30 RF: 3 meclizine 25 mg tablet 25 mg PO Q6H PRN (Reason: dizziness or vertigo) Qty: 90 RF: 3 acetaminophen 325 mg tablet 650 mg PO Q4H PRN (Reason: Fever Or Pain) Qty: 90 RF: 0 tolterodine 4 mg capsule,extended release 24hr 4 mg PO DAILY Qty: 90 RF: 3 magnesium oxide 400 mg (241.3 mg magnesium) tablet 400 mg PO DAILY Qty: 30 RF: 5 melatonin 3 mg tablet 6 mg PO BEDTIME Qty: 180 RF: 0 simvastatin 20 mg tablet 20 mg PO QPM Qty: 90 RF: 1 metformin 1,000 mg tablet 1,000 mg PO BID Qty: 90 RF: 3 midodrine 5 mg tablet 5 mg PO TID Qty: 90 RF: 0 omeprazole 20 mg capsule,delayed release(DR/EC) 20 mg PO BID Qty: 180 RF: 1 (DME) pen needle, diabetic 32 gauge x 5/32 needle See Dose Instructions .ROUTE .MEDSUPPLY 30 Days Qty: 100 RF: 0 (DME) pen needle,diabetic dual safty 30 gauge x 3/16 needle See Dose Instructions .ROUTE .MEDSUPPLY 25 Days Qty: 100 RF: 0 dexamethasone 2 mg tablet 2 mg PO BID Qty: 90 RF: 0 aspirin 81 mg Tablet,Delayed Release (Dr/Ec) 81 mg PO DAILY RF: 0 glipizide 5 mg tablet 5 mg PO BID RF: 0 furosemide 40 mg Tablet 40 mg PO DAILY Qty: 0 RF: 0 insulin glargine 100 unit/mL (3 mL) insulin pen 60 units subcut QPM RF: 0 insulin glargine 100 unit/mL (3 mL) insulin pen 70 units subcut DAILY RF: 0 hydrocortisone acetate 1 % Cream 1 applic TOPICAL Q8H PRN (Reason: Rash) RF: 0 nystatin 100,000 unit/gram powder 1 applic topical PRN PRN (Reason: Rash) RF: 0 omega 2-kqa-yor-fish oil [Fish Oil] 1,000 mg (120 mg-180 mg) Capsule 1 cap PO DAILY RF: 0 Robitussin Dm 5 ml PO Q4H PRN (Reason: Cough) RF: 0 Changed potassium chloride 20 mEq tablet,ER particles/crystals 40 meq PO BID Qty: 180 RF: 3 Follow up/Referrals: Naveen Vaughn MD [Primary Care Provider] - Discharge Orders: Discharge (Order); Ordered 01/16/19 Ordered By: Naveen Vaughn Discharge Health Status Multidrug resistant organism: No MDRO Precautions: [place] Provider Discharge Instructions Diet: Carb-consistent/Diabetic Liquid consistency: Normal/Thin Food texture: Regular Visit Report/Discharge Packet Instructions: Urinary Tract Infection Visit Report Forms: Stroke Signs & Symptoms Discharge Data Primary Care Provider: Naveen Vaughn Attending Provider: Naveen Vaughn Admit Date/Time: 01/14/19 21:48 Discharges patient from system. Discharge Date/Time: 01/16/19 14:30
[2019-01-16] MEDS: ENOXAPARIN 40 MG/0.4 ML SYRINGE SUBCUT (08:22)
[2019-01-16] MEDS: dexAMETHasone 4 MG TABLET 2 MG PO (08:22)
[2019-01-16] MEDS: CITALOPRAM 20 MG TABLET PO (08:23)
[2019-01-16] MEDS: POTASSIUM CHLORIDE 20 MEQ TAB 40 MEQ PO (08:23)
[2019-01-16] MEDS: MAGNESIUM OXIDE 400 MG TABLET PO (08:23)
[2019-01-16] MEDS: FUROSEMIDE 40 MG TABLET PO (08:23)
[2019-01-16] MEDS: glipiZIDE 5 MG TABLET PO (08:23)
[2019-01-16] MEDS: levETIRAcetam 250 MG TABLET 500 MG PO (08:23)
[2019-01-16] MEDS: TOLTERODINE LA 4 MG PO (08:24)
[2019-01-16] MEDS: SODIUM CHLORIDE 0.9% FLUSH 10 ML IV (08:25)
[2019-01-16] MEDS: INSULIN ASPART 100 UNIT/ML INSULN PEN SUBCUT ×2 (08:27→12:19)
[2019-01-16] MEDS: INSULIN GLARGINE 100 UNIT/ML 3ML PEN 70 UNIT SUBCUT (08:29)
[2019-01-16] MEDS: CEFTRIAXONE 1 GM/50 ML FROZ.PIGGY IV (08:31)
[2019-01-16] MEDS: METFORMIN HCL 500 MG TABLET 1000 MG PO (08:32)
--- NOTE | 2019-01-16 11:16 | PC.NURSE ---
Addendum entered by Malika Ferguson R.N. 01/16/19 15:16: Pts IV taken out by RN at [facility] as this RN forgot to do this at time of discharge. Called them to let them know and they state that they can remove iv. Original Note: Pt is A&Ox2. She denies pain or discomfort. Pt had an xl incontinent soft bm. Changed. She has some redness to her bottom and hermelindo area. Applying nystatin powder to area's. Pt is suppose to be discharing back to [facility] later today.
== END 2019-01-16 14:30 ==
LOC: ED 21:34 → AC 21:50
PROVIDERS: Admitting Provider Family Medicine; Emergency Provider Emergency Medicine; PCP Internal Medicine; Visit Provider Internal Medicine
DX: N30.90 Cystitis, unspecified without hematuria (principal); B96.20 Unspecified Escherichia coli [E. coli] as the cause of diseases classified elsewhere; R10.9 Unspecified abdominal pain; E87.6 Hypokalemia; E11.9 Type 2 diabetes mellitus without complications; G40.909 Epilepsy, unspecified, not intractable, without status epilepticus; C71.9 Malignant neoplasm of brain, unspecified; K21.9 Gastro-esophageal reflux disease without esophagitis; R60.1 Generalized edema; F32.9 Major depressive disorder, single episode, unspecified; K52.9 Noninfective gastroenteritis and colitis, unspecified
CPT/HCPCS: 36415; 80048; 80053; 81001; 82962; 83605; 83690; 83735; 84145; 85025; 87040; 87077; 87086; 87186; 94760; 96361; 96365; 96366; 96367; 96372; 99217; 99219; 99283; 99284; G0378; J1650; J3475

== ENCOUNTER 2019-01-24 13:09 | Inpatient (IN) | payer MEDICARE, MEDICAID, SELFPAY ==
--- NOTE | 2019-01-24 13:09 | DI.CT.S_ITS ---
PROCEDURE: CT ABDOMEN PELVIS W CON INDICATIONS: severe abdominal pain, vomiting TECHNIQUE: After the administration of intravenous contrast, 5 mm thick sections acquired from the diaphragm to the symphysis. 5 mm coronal and sagittal reformats were acquired. For radiation dose reduction, the following was used: automated exposure control, adjustment of mA and/or kV according to patient size. COMPARISON: [facility], CT, CT ABDOMEN PELVIS W CON, 12/23/2017, 11:35. FINDINGS: Image quality: Excellent. ABDOMEN: Lung bases: There is dependent atelectasis and scarring in the lung bases. Heart size is normal. Solid organs: There is diffuse hypoattenuation of the liver consistent with fatty infiltration. The gallbladder is surgically absent. Biliary system is non dilated. Pancreas enhances normally. Spleen is normal in size and enhancement. No adrenal nodules. Kidneys demonstrate no hydronephrosis. Peritoneum and bowel: Small bowel loops demonstrate normal wall thickness and caliber. There is mild colonic wall thickening involving the ascending, transverse, and descending colon with minimal fat stranding. Findings are suggestive of a mild colitis. No pericecal inflammatory changes to suggest appendicitis. No free fluid or air. Nodes and vessels: No retroperitoneal or mesenteric adenopathy by size criteria. Aorta and inferior vena cava are normal in size. Miscellaneous: No ventral hernias. PELVIS: Genitourinary: Bladder wall thickness is normal. Miscellaneous: No inguinal hernias or adenopathy. Bones: No suspicious bony lesions. No vertebral body compression fractures. IMPRESSION: 1. Mild segmental colonic wall thickening suggestive of a mild infectious or inflammatory colitis. 2. Hepatic steatosis. Dictated by: Aristeo Rose M.D. on 01/24/2019 at 13:36 Approved by: Aristeo Rose M.D. on 01/24/2019 at 13:39
[2019-01-24 13:16] VITALS: BP 113/81; PULSE 114; RESP 16; TEMP 36.4; O2SAT 96
[2019-01-24 13:31] LABS: Add Manual Diff / Slide Review NO; Basophils Absolute Auto 100 /uL (0-100); Basophils Percent Auto 1.3 % (0-2); Eosinophils Absolute Auto 200 /uL (0-450); Eosinophils Percent Auto 1.4 % (2-4); Hematocrit 40.4 % (36-46); Hemoglobin 13.9 g/dL (12.0-16.0); Lymphocytes Absolute Auto 2900 /uL (1100-4500); Lymphocytes Percent Auto 25.5 % (25-40); Mean Corpuscular HGB Conc 34.3 % (30-36); Mean Corpuscular Hemoglobin 34.2 PG (26-34); Mean Corpuscular Volume 99.6 fL (80-100); Monocytes Absolute Auto 600 /uL (0-900); Monocytes Percent Auto 5.1 % (3-14); Neutrophils Absolute Auto 7600 /uL (1500-7000); Neutrophils Percent Auto 66.7 % (50-75); Platelet Count 287 X10^3/uL (150-400); Red Blood Cell Count 4.05 X10^6/uL (4.0-5.2); Red Cell Distribution Width 14.7 % (11.6-14.8); White Blood Cell Count 11.4 X10^3/uL (4.5-11.0)
[2019-01-24 13:32] LABS: Prothrombin Time 11.3 SECONDS (10.1-12.7)
[2019-01-24 13:38] LABS: Ammonia (NH3) < 9.0 umol/L (9-30); Lactate (Lactic Acid) 3.1 mmol/L (0.7-2.1)
[2019-01-24 13:39] LABS: Alanine Aminotransferase 138 IU/L (9-52); Albumin 4.2 g/dL (3.5-5.0); Albumin Globulin Ratio 1.4 (1.0-2.8); Alkaline Phosphatase 254 U/L (38-126); Aspartate Aminotransferase 200 IU/L (14-36); BUN Creatinine Ratio 25.4 (6-22); Blood Urea Nitrogen 33 mg/dL (7-17); Calcium 10.3 mg/dL (8.4-10.2); Carbon Dioxide 30 mmol/L (22-32); Chloride 93 mmol/L (98-107); Estimated Glomerular Filt Rate 42.2 mL/min (>60); Globulin 3.1 g/dL (1.7-4.1); Glucose 194 mg/dL (70-100); HEMOLYSIS < 15 (0-50); Lactate Dehydrogenase 1077 U/L (313-618); Lipase 807 U/L (23-300); Potassium 2.9 mmol/L (3.4-5.1); Sodium 137 mmol/L (137-145); Total Protein 7.3 g/dL (6.3-8.2)
[2019-01-24] MEDS: ONDANSETRON 4 MG/2 ML INJ IV (14:32)
[2019-01-24] MEDS: SODIUM CHLORIDE 0.9% 1,000 ML 150 ML IV (14:32)
--- NOTE | 2019-01-24 14:48 | ED_ITS ---
HPI - Abdominal Pain General Chief Complaint: Abdominal Pain Stated Complaint: Abd. Pain Time Seen by Provider: 01/24/19 13:14 Source: EMS Mode of arrival: EMS Limitations: altered mental status History of Present Illness HPI narrative: 58F non smoker with cognitive delay, morbid obesity, chronic elevated lactate and hx of brain neoplasm presents with upper abdominal pain and vomiting over the course of the morning. She lives at a local assisted living facility and her symptoms were noted today. Her pain is worse with motion and palpation and improves with rest. She denies any dysuria, frequency or urgency. She denies any diarrhea or constipation. She does not think she had any bad food, denies sick persons, or recent travel. She denies any history of the same. MD complaint: abdominal pain Onset (ago): hour(s) Pain Consistency: intermittent Location: RUQ Severity: moderate Quality: cramping and stabbing Radiation: none Relieving factors: rest Exacerbating factors: vomiting and movement Associated symptoms: nausea and vomiting Related Data Home Medications Medication Instructions Recorded Confirmed aspirin 81 mg PO DAILY 12/23/17 01/15/19 pen needle, diabetic 32 gauge x #100 each 01/07/18 12/09/18 5/32 pen needle,diabetic dual safty 30 #100 each 01/07/18 12/09/18 gauge x 3/16 Robitussin Dm 5 ml PO Q4H PRN 12/09/18 01/15/19 hydrocortisone acetate 1 applic TOPICAL Q8H PRN 12/09/18 01/15/19 insulin glargine 60 units SUBCUT QPM 12/09/18 01/15/19 insulin glargine 70 units SUBCUT DAILY 12/09/18 01/15/19 nystatin 1 applic TOPICAL PRN PRN 12/09/18 01/15/19 omega 1-nrk-bpg-fish oil [Fish Oil] 1 cap PO DAILY 12/09/18 01/15/19 glipizide 5 mg PO BID 01/15/19 01/15/19 Previous Rx's Medication Instructions Recorded cholecalciferol (vitamin D3) 1,000 1,000 unit PO DAILY #90 cap 03/04/18 unit capsule ondansetron HCl 4 mg tablet 4 mg PO Q6H PRN #30 tab 05/29/18 dexamethasone 2 mg tablet 2 mg PO BID #90 tab 07/04/18 oxycodone-acetaminophen 5 mg-325 1 tab PO BEDTIME PRN #30 tab 07/14/18 mg tablet folic acid 400 mcg tablet 0.4 mg PO QPM #90 tab 10/06/18 loperamide 2 mg capsule 2 mg PO Q2-4H PRN #60 cap 10/17/18 ibuprofen 400 mg tablet 400 mg PO BID #60 tab 10/24/18 pen needle, diabetic 30 gauge x #100 each 11/20/1809/18 citalopram 20 mg tablet 20 mg PO DAILY #90 tab 12/09/18 levetiracetam 500 mg PO DAILY #30 tab 12/11/18 levetiracetam 750 mg PO BEDTIME #30 tab 12/11/18 acetaminophen 325 mg tablet 650 mg PO Q4H PRN #90 tab 12/12/18 meclizine 25 mg tablet 25 mg PO Q6H PRN #90 tab 12/12/18 magnesium oxide 400 mg (241.3 mg 400 mg PO DAILY #30 tab 12/15/18 magnesium) tablet melatonin 3 mg tablet 6 mg PO BEDTIME #180 tab 12/15/18 tolterodine 4 mg capsule,extended 4 mg PO DAILY #90 cap 12/15/18 release 24 hr simvastatin 20 mg tablet 20 mg PO QPM #90 tab 12/18/18 metformin 1,000 mg tablet 1,000 mg PO BID #90 tab 12/23/18 omeprazole 20 mg capsule,delayed 20 mg PO BID #180 cap 12/30/18 release furosemide 40 mg PO DAILY #0 tab 01/16/19 hydrochlorothiazide 25 mg PO DAILY #90 tab 01/16/19 potassium chloride 40 meq PO BID #180 tab 01/16/19 sulfamethoxazole-trimethoprim 1 tab PO Q12H 7 Days #14 tab 01/16/19 midodrine 5 mg tablet See Rx Instructions .ROUTE 01/20/19 .COMPLEX #90 tab Allergies Allergy/AdvReac Type Severity Reaction Status Date / Time adhesive tape Allergy Unknown Verified 01/14/19 20:39 Penicillins Allergy Unknown Verified 01/14/19 20:39 silicone Allergy Unknown Verified 01/14/19 20:39 zonisamide Allergy Unknown Verified 01/14/19 20:39 escitalopram AdvReac Unknown Verified 01/14/19 20:39 lamotrigine AdvReac Unknown Verified 01/14/19 20:39 Review of Systems Constitutional Constitutional: Denies chills, Denies fatigue, Denies fever(s), Denies frequent falls, Reports lethargy and Reports weakness Eyes Eyes: Denies change in vision, Denies eye discharge, Denies irritation and Denies loss of vision ENT Ears, Nose, Mouth, and Throat: Denies change in voice, Denies dizziness, Denies neck pain, Denies sore throat and Denies throat swelling Cardiovascular Cardiovascular: Denies chest pain, Denies irregular heart rhythm, Denies lightheadedness, Denies palpitations, Denies dyspnea, Denies dyspnea on exertion and Denies orthopnea Respiratory Respiratory: Denies cough, Denies dyspnea, Denies dyspnea on exertion and Denies wheezing Gastrointestinal Gastrointestinal: Reports abdominal pain, Denies change in bowel habits, Denies diarrhea, Reports nausea and Reports vomiting Genitourinary Genitourinary: Denies hematuria, Denies flank pain, Denies urinary incontinence and Denies urinary urgency Musculoskeletal Musculoskeletal: Denies back pain, Denies muscle weakness, Denies neck pain, Denies numbness and Denies tingling Integumentary/Breasts Skin/Breast: Denies pruritus, Denies erythema, Denies rash and Denies wounds Neurologic Neurologic: Denies behavioral changes, Denies confusion, Denies dizziness, Denie s frequent falls, Denies loss of vision, Denies numbness, Denies tingling and Reports weakness Psychiatric Psychiatric: Denies anxiety, Denies behavioral changes, Denies confusion, Denies depression, Denies homicidal ideation and Denies suicidal ideation Endocrine Endocrine: Denies fatigue, Denies flushing and Denies palpitations Hematologic/Lymphatic Hematologic/Lymphatic: Denies easy bruising Allergic/Immunologic Allergic/Immunologic: Denies urticaria, Denies throat swelling and Denies wheezing [facility] Medical History Anxiety (Chronic) Chicken pox (Resolved ~1966) Cognitive dysfunction (Chronic) Depression (Chronic) Diabetes mellitus type 2, insulin dependent (Chronic ~2007) Fecal incontinence (Chronic) Fractures (Resolved ~2017) GERD without esophagitis (Chronic) Hearing loss (Chronic ~2017) High serum lactate (Chronic) Measles (Resolved ~1963) Oligodendroglioma (Chronic ~2011) Orthostatic hypotension (Chronic) Other and unspecified hyperlipidemia (Chronic) Ovarian cyst (Chronic ~1983) Seizure disorder (Chronic) Urinary incontinence (Chronic ~2015) Vision disorder (Chronic) Surgical History Anesthesia (Resolved) H/O pelvic surgery (Inactive ~2016) History of cholecystectomy (Resolved ~1987) History of hysterectomy (Resolved ~1988) Family History Father Cancer Diabetes mellitus Hypertension Sister Hypertension Sister Cancer Grandfather Heart disease Grandmother Heart disease Social History marital status: number of children: 3 household members: caregiver and other lives independently: Yes caregiver/support person: Yes housing: assisted living facility pets and animals: No education level: high school occupational status: disabled Previous occupational history: [employer] in [place] [employer]/restoration: None leisure activities: games (Bingo) and other (Movies, TV) Smoking Status: Former smoker Tobacco: How many years used: 2 Smokeless tobacco user: other (Cigarettes) quit status: quit date established (2010) second hand exposure: No alcohol intake: never substance use type: does not use Family History Father Cancer Diabetes mellitus Hypertension Sister Hypertension Sister Cancer Grandfather Heart disease Grandmother Heart disease Social History marital status: number of children: 3 household members: caregiver and other lives independently: Yes caregiver/support person: Yes housing: assisted living facility pets and animals: No education level: high school occupational status: disabled Previous occupational history: [employer] in [place] [employer]/restoration: None leisure activities: games (Bingo) and other (Movies, TV) Smoking Status: Former smoker Tobacco: How many years used: 2 Smokeless tobacco user: other (Cigarettes) quit status: quit date established (2010) second hand exposure: No alcohol intake: never substance use type: does not use Exam Narrative Exam Narrative: GENERAL: [58] year old patient appears stated age. Morbidly obese, clearly uncomfortable and lethargic HEAD: Atraumatic. Normocephalic. EYES: Pupils equal round and reactive. Extraocular motions intact. No scleral icterus. No injection or drainage. ENT: Dry mucous membranes Nose without bleeding, purulent drainage. Throat without erythema, tonsillar hypertrophy or exudate. Airway patent. NECK: Trachea midline. Non tender CARDIOVASCULAR: Regular rate and rhythm without murmurs, gallops, or rubs. RESPIRATORY: Clear to auscultation. Breath sounds equal bilaterally. No wheezes, rales, or rhonchi. GASTROINTESTINAL: Abdomen soft, tender in the right upper quadrant, nondistended. EXTREMITIES: No edema or joint tenderness. BACK: Nontender without deformity or crepitance. No flank tenderness. SKIN: Tenting, poor turgor No rash or erythema of visible areas Initial Vital Signs Initial Vital Signs: Vital Signs Temperature 97.6 F 01/24/19 13:16 Pulse Rate 114 H 01/24/19 13:16 Respiratory Rate 16 01/24/19 13:16 Blood Pressure 113/81 01/24/19 13:16 Pulse Oximetry 96 01/24/19 13:16 Course Orders Ordered: ED Orders 01/24/19 13:09 CT abdomen pelvis w con Stat 01/24/19 13:10 Ammonia (NH3) Stat Complete Blood Count AUTO DIFF Stat Comprehensive Metabolic Panel Stat Lactate (Lactic Acid) Stat Lactate Dehydrogenase Stat Lipase Stat Prothrombin Time INR Stat 01/24/19 15:06 GI Panel (Film Array) Stat Sodium Chloride (Normal Saline 0.9%) 1,000 mls @ 150 mls/hr IV CONT VERONICA Last Infusion: 01/24/19 16:10 Dose: 0 mls/hr Documented by: Infusion: 01/24/19 14:53 Dose: 1,000 mls/hr Documented by: Admin: 01/24/19 14:32 Dose: 150 mls/hr Documented by: JUN Potassium Chloride 60 meq/ (Sodium Chloride) 530 mls @ 88.333 mls/hr IV NOW ONE Stop: 01/24/19 21:04 Last Admin: 01/24/19 15:28 Dose: 88.333 mls/hr Documented by: JUN Cosigned by: ELISEO Discontinued Medications Levofloxacin (Levaquin) 500 mg in 100 mls @ 100 mls/hr IV NOW ONE Stop: 01/24/19 16:05 Last Infusion: 01/24/19 16:33 Dose: 0 mls/hr Documented by: Admin: 01/24/19 15:28 Dose: 100 mls/hr Documented by: JUN Ondansetron HCl (Zofran) 4 mg IV NOW ONE Stop: 01/24/19 13:07 Last Admin: 01/24/19 14:32 Dose: 4 mg Documented by: JUN Consultations Consultation #1: Dr. Yun will accept patient onto her service Vital Signs Vital signs: Vital Signs - 8 hr 01/24/19 13:16 01/24/19 15:31 Temperature 97.6 F Pulse Rate 114 H 105 H Respiratory Rate 16 Blood Pressure 113/81 Blood Pressure [Right Arm] 98/55 L Pulse Oximetry 96 99 MDM - Abdominal Pain Lab Data Result diagrams: 01/24/19 13:10 01/24/19 13:10 Labs: Lab Results 01/24/19 01/24/19 01/24/19 Range/Units 13:10 13:10 13:10 WBC 11.4 H (4.5-11.0) X10^3/uL RBC 4.05 (4.0-5.2) X10^6/uL Hgb 13.9 (12.0-16.0) g/dL Hct 40.4 (36-46) % MCV 99.6 (80-100) fL MCH 34.2 H (26-34) PG MCHC 34.3 (30-36) % RDW 14.7 (11.6-14.8) % Plt Count 287 (150-400) X10^3/uL Neut % (Auto) 66.7 (50-75) % Lymph % (Auto) 25.5 (25-40) % [place] % (Auto) 5.1 (3-14) % Eos % (Auto) 1.4 L (2-4) % Baso % (Auto) 1.3 (0-2) % Neut # (Auto) 7600 H (8411-5481) /uL Lymph # (Auto) 2900 (6453-2274) /uL [place] # (Auto) 600 (0-900) /uL Eos # (Auto) 200 (0-450) /uL Baso # (Auto) 100 (0-100) /uL PT 11.3 (10.1-12.7) SECONDS INR 1.0 (0.9-1.3) Sodium 137 (137-145) mmol/L Potassium 2.9 L (3.4-5.1) mmol/L Chloride 93 L (98-107) mmol/L Carbon Dioxide 30 (22-32) mmol/L BUN 33 H (7-17) mg/dL Creatinine 1.30 H (0.52-1.04) mg/dL Estimated GFR 42.2 L (>60) mL/min BUN/Creatinine Ratio 25.4 H (6-22) Glucose 194 H (70-100) mg/dL Lactate (0.7-2.1) mmol/L Calcium 10.3 H (8.4-10.2) mg/dL Total Bilirubin 1.0 (0.2-1.3) mg/dL AST 200 H (14-36) IU/L ALT 138 H (9-52) IU/L Alkaline Phosphatase 254 H (38-126) U/L Ammonia (9-30) umol/L Lactate Dehydrogenase 1077 H (313-618) U/L Total Protein 7.3 (6.3-8.2) g/dL Albumin 4.2 (3.5-5.0) g/dL Globulin 3.1 (1.7-4.1) g/dL Albumin/Globulin Ratio 1.4 (1.0-2.8) Lipase 807 H (23-300) U/L 01/24/19 01/24/19 01/24/19 Range/Units 13:10 13:10 15:19 WBC (4.5-11.0) X10^3/uL RBC (4.0-5.2) X10^6/uL Hgb (12.0-16.0) g/dL Hct (36-46) % MCV (80-100) fL MCH (26-34) PG MCHC (30-36) % RDW (11.6-14.8) % Plt Count (150-400) X10^3/uL Neut % (Auto) (50-75) % Lymph % (Auto) (25-40) % [place] % (Auto) (3-14) % Eos % (Auto) (2-4) % Baso % (Auto) (0-2) % Neut # (Auto) (0180-6291) /uL Lymph # (Auto) (8701-4570) /uL [place] # (Auto) (0-900) /uL Eos # (Auto) (0-450) /uL Baso # (Auto) (0-100) /uL PT (10.1-12.7) SECONDS INR (0.9-1.3) Sodium (137-145) mmol/L Potassium (3.4-5.1) mmol/L Chloride (98-107) mmol/L Carbon Dioxide (22-32) mmol/L BUN (7-17) mg/dL Creatinine (0.52-1.04) mg/dL Estimated GFR (>60) mL/min BUN/Creatinine Ratio (6-22) Glucose (70-100) mg/dL Lactate 3.1 H 2.1 (0.7-2.1) mmol/L Calcium (8.4-10.2) mg/dL Total Bilirubin (0.2-1.3) mg/dL AST (14-36) IU/L ALT (9-52) IU/L Alkaline Phosphatase (38-126) U/L Ammonia < 9.0 L (9-30) umol/L Lactate Dehydrogenase (313-618) U/L Total Protein (6.3-8.2) g/dL Albumin (3.5-5.0) g/dL Globulin (1.7-4.1) g/dL Albumin/Globulin Ratio (1.0-2.8) Lipase (23-300) U/L Discharge Plan Departure Patient Disposition: Admitted As Inpatient Clinical Impression: Acute kidney injury, Diarrhea, Acute dehydration, Acute hypokalemia, Acute pancreatitis Admit Date/Time: 01/24/19 15:37 Admit Provider: Janice Yun
--- NOTE | 2019-01-24 14:54 | PC.NURSE ---
dr. almonte veligio. to change ns iv 150ml/hr to 1000ml/hr now.
[2019-01-24 15:19] LABS: Reflexed Lactate in 2 Hours Y
[2019-01-24] MEDS: POTASSIUM CHLORIDE 60 MEQ in SODIUM CHLORIDE 0.9% 500 ML 88.333 ML IV (15:28)
[2019-01-24] MEDS: levoFLOXacin 500 MG/100 ML PIGGYBACK 100 MG IV (15:28)
[2019-01-24 15:31] VITALS: BP 98/55; PULSE 105; O2SAT 99
[2019-01-24 15:57] LABS: Bacteria Urine None Seen
[2019-01-24 16:01] LABS: Appearance Urine UA CLEAR; Bilirubin Urine UA NEGATIVE (NEGATIVE); Color Urine UA YELLOW; Glucose Urine UA NEGATIVE (Negative); Ketones Urine UA NEGATIVE (NEGATIVE); Leukocyte Esterase Urine UA TRACE (NEGATIVE); Nitrite Urine UA NEGATIVE (Negative); Occult Blood Urine UA TRACE-INTACT (Negative); Protein Urine UA NEGATIVE (Negative); Specific Gravity Urine UA <=1.005 (1.000-1.035); Urobilinogen Urine UA 0.2 E.U./dL (0.2)
[2019-01-24 16:16] LABS: WBC Urine 5-10/HPF (0-5/HPF)
[2019-01-24 16:17] LABS: Culture Indicated Urine Specimen Cultured; RBC Urine 1-5/HPF (0-5/HPF)
[2019-01-24 16:27] LABS: Lactate 2HR (Lactic Acid Rflx) 2.1 mmol/L (0.7-2.1)
[2019-01-24 16:43] VITALS: BP 112/62; PULSE 106; RESP 18; O2SAT 97
[2019-01-24 17:20] VITALS: BP 127/70; PULSE 104; RESP 20; O2SAT 97
[2019-01-24 17:47] VITALS: BMI 45.6
--- NOTE | 2019-01-24 19:09 | P.HP_ITS ---
History of Present Illness History of Present Illness Date Patient Seen: 01/24/19 Time Patient Seen: 17:00 Chief complaint: Abd. Pain Narrative: Patient is a 58 yo female with moribd obesity, diabetes, h/o oligodenroglioma, seizure disorder, chronic diarrhea resident of [facility]. She was brought in by EMS obtunded with dry mucus membranes and tenting of her skin. She had been vomiting and having diarrhea. She is incontinent at baseline and had foul smelling stool and urine on her. She received a liter of fluid and potassium in the ED and improved. When I see her she is answering questions but is a poor historian at baseline. She tells me her abominal pain has improved. She has a headache but tells me she always has a headache. No chest pain or shortness of breath. She tells me she's in [facility] and doesn't know what day it is. She has bruising on her right zygoma which she says happened when she fell about 4 months ago and has never improved. She was just discharged on 01/16/2019 for admission for urinary tract infection and abdominal pain. New medications were tmp/smx to treat her UTI and hydochlorithiazide to help with her lower extremity edema. Her potassium dose was increased. She spends a considerable amount of time sitting up in a wheelchair with her legs down. She is known to have chronic diarrhea with incontinence. She does have chronic elevated lactate and her lactate today is the same as previous admission. Patient History Medical History Anxiety (Chronic) Chicken pox (Resolved ~1966) Cognitive dysfunction (Chronic) Depression (Chronic) Diabetes mellitus type 2, insulin dependent (Chronic ~2007) Fecal incontinence (Chronic) Fractures (Resolved ~2017) GERD without esophagitis (Chronic) Hearing loss (Chronic ~2016) High serum lactate (Chronic) Measles (Resolved ~1963) Oligodendroglioma (Chronic ~2011) Orthostatic hypotension (Chronic) Other and unspecified hyperlipidemia (Chronic) Ovarian cyst (Chronic ~1983) Seizure disorder (Chronic) Urinary incontinence (Chronic ~2015) Vision disorder (Chronic) Surgical History Anesthesia (Resolved) H/O pelvic surgery (Inactive ~2016) History of cholecystectomy (Resolved ~1987) History of hysterectomy (Resolved ~1988) Family History Father Cancer Diabetes mellitus Hypertension Sister Hypertension Sister Cancer Grandfather Heart disease Grandmother Heart disease Social History marital status: number of children: 3 household members: caregiver and other lives independently: Yes caregiver/support person: Yes housing: assisted living facility pets and animals: No education level: high school occupational status: disabled Previous occupational history: [employer] in [place] [employer]/hinduism: None leisure activities: games ([employer]) and other (Movies, TV) Smoking Status: Former smoker Tobacco: How many years used: 2 Smokeless tobacco user: other (Cigarettes) quit status: quit date established (2010) second hand exposure: No alcohol intake: never substance use type: does not use Family & Social History Family History Father Cancer Diabetes mellitus Hypertension Sister Hypertension Sister Cancer Grandfather Heart disease Grandmother Heart disease Social History: household members caregiver,other Prior Living Arrangements Assisted Living lives independently Yes caregiver/support person Yes Safety & Behavioral: Feels Safe in Current Yes Environment Been Physically Hurt or No Threatened By a Person Suicidal Ideation Description None Suicide Plan Description No Plan Tobacco & Substance use: Smoking Status Former smoker alcohol intake never alcohol intake frequency holiday/special occasion Substance Use Type does not use Meds Home Medications and Allergies Home Medications Medication Instructions Recorded Confirmed Type aspirin 81 mg PO DAILY 12/23/17 01/15/19 History pen needle, diabetic 32 gauge x #100 each 01/07/18 12/09/18 History / pen needle,diabetic dual safty 30 #100 each 01/07/18 12/09/18 History gauge x 3/16 cholecalciferol (vitamin D3) 1,000 1,000 unit PO DAILY #90 cap 03/04/18 01/15/19 Rx unit capsule ondansetron HCl 4 mg tablet 4 mg PO Q6H PRN #30 tab 05/29/18 01/15/19 Rx dexamethasone 2 mg tablet 2 mg PO BID #90 tab 07/04/18 01/15/19 Rx oxycodone-acetaminophen 5 mg-325 1 tab PO BEDTIME PRN #30 tab 07/14/18 01/15/19 Rx mg tablet folic acid 400 mcg tablet 0.4 mg PO QPM #90 tab 10/06/18 01/15/19 Rx loperamide 2 mg capsule 2 mg PO Q2-4H PRN #60 cap 10/17/18 01/24/19 Rx ibuprofen 400 mg tablet 400 mg PO BID #60 tab 10/24/18 01/15/19 Rx pen needle, diabetic 30 gauge x #100 each 11/20/18 12/09/18 Rx /16 Robitussin Dm 5 ml PO Q4H PRN 12/09/18 01/15/19 History citalopram 20 mg tablet 20 mg PO DAILY #90 tab 12/09/18 01/15/19 Rx hydrocortisone acetate 1 applic TOPICAL Q8H PRN 12/09/18 01/15/19 History insulin glargine 60 units SUBCUT QPM 12/09/18 01/24/19 History insulin glargine 70 units SUBCUT DAILY 12/09/18 01/24/19 History nystatin 1 applic TOPICAL PRN PRN 12/09/18 01/15/19 History omega [id number] oil [Fish Oil] 1 cap PO DAILY 12/09/18 01/15/19 History levetiracetam 500 mg PO DAILY #30 tab 12/11/18 01/24/19 Rx levetiracetam 750 mg PO BEDTIME #30 tab 12/11/18 01/24/19 Rx acetaminophen 325 mg tablet 650 mg PO Q4H PRN #90 tab 12/12/18 01/15/19 Rx meclizine 25 mg tablet 25 mg PO Q6H PRN #90 tab 12/12/18 01/24/19 Rx magnesium oxide 400 mg (241.3 mg 400 mg PO DAILY #30 tab 12/15/18 01/15/19 Rx magnesium) tablet melatonin 3 mg tablet 6 mg PO BEDTIME #180 tab 12/15/18 01/15/19 Rx tolterodine 4 mg capsule,extended 4 mg PO DAILY #90 cap 12/15/18 01/15/19 Rx release 24 hr simvastatin 20 mg tablet 20 mg PO QPM #90 tab 12/18/18 01/15/19 Rx metformin 1,000 mg tablet 1,000 mg PO BID #90 tab 12/23/18 01/15/19 Rx omeprazole 20 mg capsule,delayed 20 mg PO BID #180 cap 12/30/18 01/15/19 Rx release glipizide 5 mg PO BID 01/15/19 01/15/19 History furosemide 40 mg PO DAILY #0 tab 01/16/19 01/24/19 Rx hydrochlorothiazide 25 mg PO DAILY #90 tab 01/16/19 01/24/19 Rx potassium chloride 40 meq PO BID #180 tab 01/16/19 01/24/19 Rx sulfamethoxazole-trimethoprim 1 tab PO Q12H 7 Days #14 tab 01/16/19 Rx midodrine 5 mg tablet See Rx Instructions .ROUTE 01/20/19 Rx .COMPLEX #90 tab Allergies Allergy/AdvReac Type Severity Reaction Status Date / Time adhesive tape Allergy Unknown Verified 01/14/19 20:39 Penicillins Allergy Unknown Verified 01/14/19 20:39 silicone Allergy Unknown Verified 01/14/19 20:39 zonisamide Allergy Unknown Verified 01/14/19 20:39 escitalopram AdvReac Unknown Verified 01/14/19 20:39 lamotrigine AdvReac Unknown Verified 01/14/19 20:39 Exam Vital Signs (past 8 hours): - 01/24/19 13:16 01/24/19 15:31 01/24/19 16:43 Temperature 97.6 F Pulse Rate 114 H 105 H 106 H Respiratory Rate 16 18 Blood Pressure 113/81 112/62 Blood Pressure [Right Arm] 98/55 L Pulse Oximetry 96 99 97 Oxygen Delivery Method Room Air Narrative Exam Narrative: Middle-aged female who looks older than stated age in no obvious distress lying in her hospital bed with obvious cushingoid changes in her face, pale HEENT-normocephalic Lungs-good breath sounds without wheezes Heart-regular rate and rhythm no murmur Abdomen-positive hypoactive bowel tones soft, some tenderness on the right side, obesity limits exam, no noted hepatosplenomegaly no masses palpable Extremities-1+ edema along both shins, warm Neuro-patient moves all 4 extremities. Gait not tested. Gross sensation and movement normal Objective Labs Result Diagrams: 01/24/19 13:10 01/24/19 13:10 Labs: Laboratory Results - last 24 hr 01/24/19 01/24/19 01/24/19 13:10 13:10 13:10 WBC 11.4 H RBC 4.05 Hgb 13.9 Hct 40.4 MCV 99.6 MCH 34.2 H MCHC 34.3 RDW 14.7 Plt Count 287 Neut % (Auto) 66.7 Lymph % (Auto) 25.5 [place] % (Auto) 5.1 Eos % (Auto) 1.4 L Baso % (Auto) 1.3 Neut # (Auto) 7600 H Lymph # (Auto) 2900 [place] # (Auto) 600 Eos # (Auto) 200 Baso # (Auto) 100 PT 11.3 INR 1.0 Sodium 137 Potassium 2.9 L Chloride 93 L Carbon Dioxide 30 BUN 33 H Creatinine 1.30 H Estimated GFR 42.2 L BUN/Creatinine Ratio 25.4 H Glucose 194 H Lactate Calcium 10.3 H Total Bilirubin 1.0 AST 200 H ALT 138 H Alkaline Phosphatase 254 H Ammonia Lactate Dehydrogenase 1077 H Total Protein 7.3 Albumin 4.2 Globulin 3.1 Albumin/Globulin Ratio 1.4 Lipase 807 H Urine Color Urine Appearance Urine pH Ur Specific [place] Urine Protein Urine Glucose (UA) Urine Ketones Urine Occult Blood Urine Nitrate Urine Bilirubin Urine Urobilinogen Ur Leukocyte Esterase Urine RBC Urine WBC Urine Bacteria Ur Culture Indicated? 01/24/19 01/24/19 01/24/19 13:10 13:10 15:19 WBC RBC Hgb Hct MCV MCH MCHC RDW Plt Count Neut % (Auto) Lymph % (Auto) [place] % (Auto) Eos % (Auto) Baso % (Auto) Neut # (Auto) Lymph # (Auto) [place] # (Auto) Eos # (Auto) Baso # (Auto) PT INR Sodium Potassium Chloride Carbon Dioxide BUN Creatinine Estimated GFR BUN/Creatinine Ratio Glucose Lactate 3.1 H 2.1 Calcium Total Bilirubin AST ALT Alkaline Phosphatase Ammonia < 9.0 L Lactate Dehydrogenase Total Protein Albumin Globulin Albumin/Globulin Ratio Lipase Urine Color Urine Appearance Urine pH Ur Specific [place] Urine Protein Urine Glucose (UA) Urine Ketones Urine Occult Blood Urine Nitrate Urine Bilirubin Urine Urobilinogen Ur Leukocyte Esterase Urine RBC Urine WBC Urine Bacteria Ur Culture Indicated? 01/24/19 15:45 WBC RBC Hgb Hct MCV MCH MCHC RDW Plt Count Neut % (Auto) Lymph % (Auto) [place] % (Auto) Eos % (Auto) Baso % (Auto) Neut # (Auto) Lymph # (Auto) [place] # (Auto) Eos # (Auto) Baso # (Auto) PT INR Sodium Potassium Chloride Carbon Dioxide BUN Creatinine Estimated GFR BUN/Creatinine Ratio Glucose Lactate Calcium Total Bilirubin AST ALT Alkaline Phosphatase Ammonia Lactate Dehydrogenase Total Protein Albumin Globulin Albumin/Globulin Ratio Lipase Urine Color Yellow Urine Appearance Clear Urine pH 5.0 Ur Specific [place] <=1.005 Urine Protein Negative Urine Glucose (UA) Negative Urine Ketones Negative Urine Occult Blood Trace-intact Urine Nitrate Negative Urine Bilirubin Negative Urine Urobilinogen 0.2 Ur Leukocyte Esterase Trace H Urine RBC 1-5/hpf D Urine WBC 5-10/hpf H Urine Bacteria None seen Ur Culture Indicated? Specimen cultured Assessment & Plan Assessment & Plan narrative: Acute renal failure from dehydration. Continue fluids. Recheck creatinine at 6 hours. Continue fluids. Hypokalemia. Has been given 60 meq potassium. Check magnesium and recheck potassium after administration. Pancreatitis. ?Acute or chronic. Lipase was 706 at last admission and now 807. Has added to medications that would contribute to a pancreatitis. [place] criteria 2 so 0-3% mortality. CT scan without concerning findings in the pancreas. Continue with fluids and NPO. Control nausea with ondansetron. Leukocytosis. Evidence of colitis on CT scan. C. diff? Patient has had recent antibiotics. Waiting GI panel results. Urine is also culturing. Given her fecal incontinence she is at high risk of recurrent UTI. She has received a dose of levofloxacin in the ED. Will follow cultures. Last UTI was e. coli with resistance to levofloxacin and treated with bactrim. Diabetes. Currently NPO will monitor q 6 hours and do medium dose coverage. Check hgba1c. 10 pound weight loss since discharge 8 days ago. Will verify current weight. Hold diuretics for now since she was dehydrated on admission. Continue home meds for seizure disorder. Intertrigo. continue with nystatin. Early stage I pressure ulcer to buttocks present on admission. Reposition. Code status: DNR DVT prophylaxis: lovenox Disposition: Patient really needs higher level of care than can be provided at [place]. Will ask care management to see what they can do. She is acutely ill and will require at least 2 midnights of care to treat her renal failure, pancreatitis and colitis. Time Spent With Patient Time with patient: Greater than 35 minutes
[2019-01-24] MEDS: PANTOPRAZOLE 40 MG VIAL IV (19:11)
[2019-01-24] MEDS: DEXAMETHASONE 4 MG/ML VIAL 2 MG IV (19:11)
[2019-01-24 19:53] LABS: Add Manual Diff / Slide Review NO; Basophils Absolute Auto 100 /uL (0-100); Eosinophils Absolute Auto 100 /uL (0-450); Eosinophils Percent Auto 1.3 % (2-4); Hematocrit 38.6 % (36-46); Hemoglobin 12.8 g/dL (12.0-16.0); Lymphocytes Absolute Auto 1800 /uL (1100-4500); Lymphocytes Percent Auto 19.8 % (25-40); Mean Corpuscular HGB Conc 33.3 % (30-36); Mean Corpuscular Hemoglobin 33.6 PG (26-34); Monocytes Absolute Auto 700 /uL (0-900); Monocytes Percent Auto 7.3 % (3-14); Neutrophils Absolute Auto 6400 /uL (1500-7000); Neutrophils Percent Auto 70.6 % (50-75); Platelet Count 229 X10^3/uL (150-400); Red Blood Cell Count 3.82 X10^6/uL (4.0-5.2); Red Cell Distribution Width 14.6 % (11.6-14.8)
[2019-01-24 20:00] VITALS: BP 109/86; PULSE 110; RESP 18; TEMP 36.6; O2SAT 100
[2019-01-24 20:07] LABS: Lipase 590 U/L (23-300); Magnesium 1.2 mg/dL (1.6-2.3)
[2019-01-24 20:08] LABS: Alanine Aminotransferase 124 IU/L (9-52); Albumin 3.6 g/dL (3.5-5.0); Albumin Globulin Ratio 1.2 (1.0-2.8); Alkaline Phosphatase 204 U/L (38-126); Aspartate Aminotransferase 144 IU/L (14-36); Bilirubin Total 0.9 mg/dL (0.2-1.3); Blood Urea Nitrogen 28 mg/dL (7-17); Calcium 9.4 mg/dL (8.4-10.2); Carbon Dioxide 28 mmol/L (22-32); Chloride 98 mmol/L (98-107); Estimated Glomerular Filt Rate 57.1 mL/min (>60); Globulin 2.9 g/dL (1.7-4.1); Glucose 196 mg/dL (70-100); HEMOLYSIS < 15 (0-50); Potassium 3.2 mmol/L (3.4-5.1); Sodium 137 mmol/L (137-145); Total Protein 6.5 g/dL (6.3-8.2)
[2019-01-24 20:39] LABS: Cholesterol 156 mg/dL (140-199); HDL Cholesterol 42 mg/dL (40-60); LDL Cholesterol Calculated 48 mg/dL (<100); Triglycerides 332 mg/dL (35-150)
[2019-01-24 20:41] LABS: Hemoglobin A1C% w Est Avg Glu 8.5 % (4.0-6.0)
[2019-01-24] MEDS: INSULIN ASPART 100 UNIT/ML INSULN PEN SUBCUT (20:54)
[2019-01-24] MEDS: SODIUM CHLORIDE 0.9% 1,000 ML 1000 ML IV (20:59)
[2019-01-24] MEDS: levETIRAcetam 250 MG TABLET 750 MG PO (21:27)
[2019-01-24 23:00] VITALS: O2SAT 95
[2019-01-25] VITALS (9 sets, daily range): BP systolic 139–153; BP diastolic 71–97; PULSE 83–104; RESP 16–26; TEMP 36.2–37; O2SAT 94–99
--- NOTE | 2019-01-25 01:29 | PC.NURSE ---
CORROSION CONTROL SPECIALIST note: Patient refused blood pressure. Patient attempted to take off cuff. I told her let's leave that on, your doctor wants a blood pressure. and patient proceeded to take off blood pressure cuff. Asked if she refused. She said yes.
[2019-01-25] MEDS: INSULIN ASPART 100 UNIT/ML INSULN PEN SUBCUT ×5 (02:07→21:32)
[2019-01-25] MEDS: MAGNESIUM SULFATE 4 GM/100 ML PIGGYBACK IV (02:31)
[2019-01-25] MEDS: DEXAMETHASONE 4 MG/ML VIAL 2 MG IV ×2 (06:02→18:25)
[2019-01-25 07:45] LABS: Alanine Aminotransferase 106 IU/L (9-52); Albumin 3.1 g/dL (3.5-5.0); Albumin Globulin Ratio 1.2 (1.0-2.8); Alkaline Phosphatase 166 U/L (38-126); Aspartate Aminotransferase 103 IU/L (14-36); BUN Creatinine Ratio 25.7 (6-22); Bilirubin Total 0.7 mg/dL (0.2-1.3); Blood Urea Nitrogen 18 mg/dL (7-17); Calcium 8.4 mg/dL (8.4-10.2); Carbon Dioxide 25 mmol/L (22-32); Chloride 105 mmol/L (98-107); Estimated Glomerular Filt Rate > 60.0 mL/min (>60); Globulin 2.6 g/dL (1.7-4.1); Glucose 210 mg/dL (70-100); HEMOLYSIS < 15 (0-50); Lipase 344 U/L (23-300); Magnesium 2.4 mg/dL (1.6-2.3); Potassium 3.6 mmol/L (3.4-5.1); Sodium 138 mmol/L (137-145); Total Protein 5.7 g/dL (6.3-8.2)
[2019-01-25] MEDS: NYSTATIN POWDER 15GM 1 APPLIC TOP ×2 (08:40→21:35)
[2019-01-25] MEDS: MIDODRINE HCL 5 MG TABLET PO ×3 (08:40→21:34)
[2019-01-25] MEDS: levETIRAcetam 250 MG TABLET 500 MG PO (08:40)
[2019-01-25] MEDS: ENOXAPARIN 40 MG/0.4 ML SYRINGE SUBCUT ×2 (08:43→21:33)
[2019-01-25] MEDS: CITALOPRAM 20 MG TABLET PO (08:44)
[2019-01-25] MEDS: PANTOPRAZOLE 40 MG VIAL IV (08:44)
[2019-01-25] MEDS: SODIUM CHLORIDE 0.9% 1,000 ML 150 ML IV ×2 (11:31→18:24)
--- NOTE | 2019-01-25 13:02 | P.PN_ITS ---
Subjective Subjective Date Patient Seen: 01/25/19 Time Patient Seen: 09:30 Interval history: Patient is sitting up in bed this morning. Her brother and sister are at bedside. They report that this is the best they seen her in quite some time. She denies any pain. Admits to having a very dry mouth and would really like to drink water. Exam Vital Signs (past 8 hours): - 01/25/19 08:15 01/25/19 09:07 01/25/19 11:22 Temperature 97.7 F 97.3 F L Pulse Rate 94 H 89 Respiratory Rate 26 H 22 Blood Pressure 149/78 H 153/71 H Pulse Oximetry 96 95 98 Oxygen Delivery Method Room Air Oxygen Flow Rate 0 Narrative Exam Narrative: Middle-aged female who looks older than stated age in no obvious distress lying in her hospital bed with obvious cushingoid changes in her face, pale HEENT-normocephalic, ecchymosis to the right zygomatic arch Lungs-good breath sounds without wheezes Heart-regular rate and rhythm no murmur Abdomen-positive bowel tones soft, some tenderness on the right side, obesity limits exam, no noted hepatosplenomegaly no masses palpable Extremities-1+ edema along both shins, warm, SCDs in place Neuro-patient moves all 4 extremities. Gait not tested. Gross sensation and movement normal Objective Labs Result Diagrams: 01/24/19 19:10 01/25/19 07:24 Labs: Laboratory Results - last 24 hr 01/24/19 01/24/19 01/24/19 13:10 13:10 13:10 WBC 11.4 H RBC 4.05 Hgb 13.9 Hct 40.4 MCV 99.6 MCH 34.2 H MCHC 34.3 RDW 14.7 Plt Count 287 Neut % (Auto) 66.7 Lymph % (Auto) 25.5 [place] % (Auto) 5.1 Eos % (Auto) 1.4 L Baso % (Auto) 1.3 Neut # (Auto) 7600 H Lymph # (Auto) 2900 [place] # (Auto) 600 Eos # (Auto) 200 Baso # (Auto) 100 PT 11.3 INR 1.0 Sodium 137 Potassium 2.9 L Chloride 93 L Carbon Dioxide 30 BUN 33 H Creatinine 1.30 H Estimated GFR 42.2 L BUN/Creatinine Ratio 25.4 H Glucose 194 H Hemoglobin A1c Lactate Calcium 10.3 H Magnesium Total Bilirubin 1.0 AST 200 H ALT 138 H Alkaline Phosphatase 254 H Ammonia Lactate Dehydrogenase 1077 H Total Protein 7.3 Albumin 4.2 Globulin 3.1 Albumin/Globulin Ratio 1.4 Triglycerides Cholesterol LDL Cholesterol, Calc HDL Cholesterol Lipase 807 H Urine Color Urine Appearance Urine pH Ur Specific [place] Urine Protein Urine Glucose (UA) Urine Ketones Urine Occult Blood Urine Nitrate Urine Bilirubin Urine Urobilinogen Ur Leukocyte Esterase Urine RBC Urine WBC Urine Bacteria Ur Culture Indicated? 01/24/19 01/24/19 01/24/19 13:10 13:10 15:19 WBC RBC Hgb Hct MCV MCH MCHC RDW Plt Count Neut % (Auto) Lymph % (Auto) [place] % (Auto) Eos % (Auto) Baso % (Auto) Neut # (Auto) Lymph # (Auto) [place] # (Auto) Eos # (Auto) Baso # (Auto) PT INR Sodium Potassium Chloride Carbon Dioxide BUN Creatinine Estimated GFR BUN/Creatinine Ratio Glucose Hemoglobin A1c Lactate 3.1 H 2.1 Calcium Magnesium Total Bilirubin AST ALT Alkaline Phosphatase Ammonia < 9.0 L Lactate Dehydrogenase Total Protein Albumin Globulin Albumin/Globulin Ratio Triglycerides Cholesterol LDL Cholesterol, Calc HDL Cholesterol Lipase Urine Color Urine Appearance Urine pH Ur Specific [place] Urine Protein Urine Glucose (UA) Urine Ketones Urine Occult Blood Urine Nitrate Urine Bilirubin Urine Urobilinogen Ur Leukocyte Esterase Urine RBC Urine WBC Urine Bacteria Ur Culture Indicated? 01/24/19 01/24/19 01/24/19 15:45 19:00 19:10 WBC 9.0 RBC 3.82 L Hgb 12.8 Hct 38.6 MCV 101.0 H MCH 33.6 MCHC 33.3 RDW 14.6 Plt Count 229 Neut % (Auto) 70.6 Lymph % (Auto) 19.8 L [place] % (Auto) 7.3 Eos % (Auto) 1.3 L Baso % (Auto) 1.0 Neut # (Auto) 6400 Lymph # (Auto) 1800 [place] # (Auto) 700 Eos # (Auto) 100 Baso # (Auto) 100 PT INR Sodium Potassium Chloride Carbon Dioxide BUN Creatinine Estimated GFR BUN/Creatinine Ratio Glucose Hemoglobin A1c Lactate Calcium Magnesium 1.2 L Total Bilirubin AST ALT Alkaline Phosphatase Ammonia Lactate Dehydrogenase Total Protein Albumin Globulin Albumin/Globulin Ratio Triglycerides Cholesterol LDL Cholesterol, Calc HDL Cholesterol Lipase 590 H Urine Color Yellow Urine Appearance Clear Urine pH 5.0 Ur Specific [place] <=1.005 Urine Protein Negative Urine Glucose (UA) Negative Urine Ketones Negative Urine Occult Blood Trace-intact Urine Nitrate Negative Urine Bilirubin Negative Urine Urobilinogen 0.2 Ur Leukocyte Esterase Trace H Urine RBC 1-5/hpf D Urine WBC 5-10/hpf H Urine Bacteria None seen Ur Culture Indicated? Specimen cultured 01/24/19 01/24/19 01/24/19 19:30 19:30 Unknown WBC RBC Hgb Hct MCV MCH MCHC RDW Plt Count Neut % (Auto) Lymph % (Auto) [place] % (Auto) Eos % (Auto) Baso % (Auto) Neut # (Auto) Lymph # (Auto) [place] # (Auto) Eos # (Auto) Baso # (Auto) PT INR Sodium 137 Potassium 3.2 L Chloride 98 Carbon Dioxide 28 BUN 28 H Creatinine 1.00 Estimated GFR 57.1 L BUN/Creatinine Ratio 28.0 H Glucose 196 H Hemoglobin A1c 8.5 H Lactate Calcium 9.4 Magnesium Total Bilirubin 0.9 AST 144 H ALT 124 H Alkaline Phosphatase 204 H Ammonia Lactate Dehydrogenase Total Protein 6.5 Albumin 3.6 Globulin 2.9 Albumin/Globulin Ratio 1.2 Triglycerides 332 H Cholesterol 156 LDL Cholesterol, Calc 48 HDL Cholesterol 42 Lipase Urine Color Urine Appearance Urine pH Ur Specific [place] Urine Protein Urine Glucose (UA) Urine Ketones Urine Occult Blood Urine Nitrate Urine Bilirubin Urine Urobilinogen Ur Leukocyte Esterase Urine RBC Urine WBC Urine Bacteria Ur Culture Indicated? 01/25/19 07:24 WBC RBC Hgb Hct MCV MCH MCHC RDW Plt Count Neut % (Auto) Lymph % (Auto) [place] % (Auto) Eos % (Auto) Baso % (Auto) Neut # (Auto) Lymph # (Auto) [place] # (Auto) Eos # (Auto) Baso # (Auto) PT INR Sodium 138 Potassium 3.6 Chloride 105 Carbon Dioxide 25 BUN 18 H Creatinine 0.70 Estimated GFR > 60.0 BUN/Creatinine Ratio 25.7 H Glucose 210 H Hemoglobin A1c Lactate Calcium 8.4 Magnesium 2.4 H Total Bilirubin 0.7 AST 103 H ALT 106 H Alkaline Phosphatase 166 H Ammonia Lactate Dehydrogenase Total Protein 5.7 L Albumin 3.1 L Globulin 2.6 Albumin/Globulin Ratio 1.2 Triglycerides Cholesterol LDL Cholesterol, Calc HDL Cholesterol Lipase 344 H Urine Color Urine Appearance Urine pH Ur Specific [place] Urine Protein Urine Glucose (UA) Urine Ketones Urine Occult Blood Urine Nitrate Urine Bilirubin Urine Urobilinogen Ur Leukocyte Esterase Urine RBC Urine WBC Urine Bacteria Ur Culture Indicated? Assessment & Plan Assessment & Plan narrative: Acute renal failure from dehydration. Improving on fluids. Will continue to monitor. Hypokalemia. Has been given 60 meq potassium without much change in her potassium and till magnesium was replaced. Now she is normal potassium. Hypo magnesium. Replaced with 4 g yesterday. Now normal. Pancreatitis. ?Acute or chronic. Lipase was 706 at last admission and now 807. Has responded well to parental fluids. Will try a clears today. Continue with IV fluids. Control nausea with ondansetron. Leukocytosis. Evidence of colitis on CT scan. C. diff? Patient has had recent antibiotics. Her however C diff less likely now since she has not stooled since she was in the emergency department. Will get GI panel when able. Urine is also culturing. Given her fecal incontinence she is at high risk of recurrent UTI. She has received a dose of levofloxacin in the ED. Will follow cultures currently gram-negative [place] but only [id number] colony-forming units. Last UTI was e. coli with resistance to levofloxacin and treated with bactrim. Diabetes. Currently NPO will monitor q 6 hours and do medium dose coverage. Hemoglobin A1c was 8.5.. 10 pound weight loss since last discharge 9 days ago. Will verify current weight. Hold diuretics for now since she was dehydrated on admission. Monitor for signs of fluid overload. Continue home meds for seizure disorder. Intertrigo. continue with nystatin. Early stage I pressure ulcer to buttocks present on admission. Reposition. Barrier cream. Code status: DNR DVT prophylaxis: lovenox Disposition: Patient really needs higher level of care than can be provided at [place]. Will ask care management to see what they can do. She is acutely ill and will require at least 2 midnights of care to treat her renal failure, pancreatitis and colitis. Talked with patient's mother today her name is Mackenzie Clark and she can be reached at [phone]. She is attempting to arrange [facility] care for her daughter close by in [facility]. Time Spent With Patient Time with patient: Greater than 35 minutes
--- NOTE | 2019-01-25 13:21 | CM.DANOTE ---
Patient is a 58 year old female who was a Readmit on 01/24/19 for Abd Pain. Pt has [facility] and [facility] for insurance and her PCP is Dr. Vaughn. EMR was reviewed. Per MD, pt is a poor historian and a readmit for UTI with discharge back to [facility] on 01/16/19. Pt likely will need SNF prior to return to [facility]. PT/OT ordered and pending. SW met bedside with pt and explained role and pt confirms that she remembers recently discharging from the hospital back to her residence of [facility]. Pt states that her sister Lena and mother are aware that she was admitted to the hospital again and SW inquired if she would like to speak to them and SW attempted to call sister Lena and left voicemail discussing possible need for SNF at d/ with request to call back. SW discussed MD current recommendation for likely SNF at d/ and pt states she feels SNF is needed prior to return to [facility] and states that she has a hx of [facility] and this would be her preference to stay in [place] for rehab before return home. Pt requested referral to [facility]. SW called [facility] admissions with new referral and faxed clinicals to review as they currently do not have access to [facility] for review. PASRR completed for likely SNF at d/. SW also called pt's assigned [facility] sample case porter Ajay Lazo at [phone] and let message as their office is not open on the weekends to inform him of pt's readmit to the hospital and likely need for SNF as he helps with coordination of care monthly with the pt. Plan: SW to follow closely for [facility] review and PT/OT eval and recommendations towards likely need of SNF prior to return to [facility]. SW to coordinate with [facility] Saturday when more staff available to discuss pt. MERRY Aguirre Discharge Planning/Care Management CM Discharge Assessment Start: 01/25/19 13:17 Freq: Status: Active Protocol: Document 01/25/19 13:17 BF (Rec: 01/25/19 13:21 BF [id number]) Discharge Planning Assessment Assigned Fire Hazard Inspector MERRY Castro DPOA/Assigned Designee Name sister Lena Contact Information [phone] Advance Directives? Yes: POLST Advance Directives on File Yes History Provided By Patient,Family Member,Medical Record Has Patient been admitted in last 30 Yes days? Comment Recent d/c back to [facility] on Prior Living Arrangements Assisted Living Household Members caregiver,other Type of transporation used prior to Relies on Others admit Facility Name Admitted From: [facility] Willing to Return to Facility? Yes Independent with ADL's No Is patient alert and oriented? Yes: poor historian Needs Assistance With Bathing,Meal Prep,Managing Medications,Home Chores / Shopping Caregiver for Another No Patient/Family Preference Retirement Facility Comment Waiting for further PT/OT eval Discharge Plan Retirement Facility Transportation Arrangement Likely facility van Referrals Initiated Retirement Additional Comment Patient is enrolled in [facility] program. They check on patient monthly at [facility]. Contact is Ajay Lazo ph# . Medicare Choice List Provided Yes SNF/HH Preference [facility] Has Agency SNF been contacted Yes Whiteboard Updated in Patient Room with Yes name and ext. # of Fire Hazard Inspector Review Status In Process Please Provide Date Initial DC 01/25/19 Assessment Was Performed Next Review Type Continued Stay Review
--- NOTE | 2019-01-25 14:32 | PT.IIE ---
Surgical History (Last Reviewed 01/24/19 @ 14:54 by Haroldo Shaw DO) Anesthesia (Resolved) H/O pelvic surgery (Inactive ~2016) History of cholecystectomy (Resolved ~1987) History of hysterectomy (Resolved ~1988) Medical History (Last Reviewed 01/24/19 @ 14:54 by Haroldo Shaw DO) Anxiety (Chronic) Chicken pox (Resolved ~1966) Cognitive dysfunction (Chronic) Depression (Chronic) Diabetes mellitus type 2, insulin dependent (Chronic ~2007) Fecal incontinence (Chronic) Fractures (Resolved ~2017) GERD without esophagitis (Chronic) Hearing loss (Chronic ~2016) High serum lactate (Chronic) Measles (Resolved ~1963) Oligodendroglioma (Chronic ~2011) Orthostatic hypotension (Chronic) Other and unspecified hyperlipidemia (Chronic) Ovarian cyst (Chronic ~1983) Seizure disorder (Chronic) Urinary incontinence (Chronic ~2015) Vision disorder (Chronic) Physical Therapy Inpatient Evaluation/Re-Eval M1 PT/OT-IP Prior Functional Status Start: 01/25/19 13:12 Freq: NEEDED Status: Active Protocol: Document 01/25/19 14:03 AW (Rec: 01/25/19 14:31 AW [id number]) Medical Review Prior Functional Status Medical History Reviewed Yes Diet/Fluid Consistency Clear Liquids Communication Able to make needs known Mobility and Gait Pt reports she uses a manual wheelchair for mobility needs at baseline. She states she was transferring independently bed to w/c and w/c to toilet. She describes a squat pivot transfer without use of assistive device. From 12/09/18 PT eval: per [facility] : pt is dependent with all mobilities; uses a frida lift for transfers and is non- ambulatory; has a manual w/c and able to propel using her UE. This information was confirmed by this therapist with a call to nursing at [facility] . Activities of Daily Living and IADL's Pt lives at [facility], receives meals and help with medications. She reports dressing independently but receiving help from a friend for bathing needs Social History Household Members caregiver,other Living Arrangements Assisted Living Number of Floors (Floors) One Floor Number of Stairs To Enter/Railing? 0 NATE Home Equipment Manual Wheelchair,Mechanical Lift,Hospital Bed,Bed Rails Additional Social History Comment disabled M2 PT-IP Current Condition Start: 01/25/19 13:12 Freq: NEEDED Status: Active Protocol: Document 01/25/19 14:03 AW (Rec: 01/25/19 14:31 AW [id number]) Physical Therapy Current Condition Current Condition Evaluation Date 01/25/19 Treatment Diagnosis acute renal failure, stage I pressure injury, impaired bed mob/transfers Precautions Other Precautions high falls risk Weight Bearing Status Weight Bearing Status Full Weight Bearing M3 PT-IP Subjective Start: 01/25/19 13:12 Freq: NEEDED Status: Active Protocol: Document 01/25/19 14:03 AW (Rec: 01/25/19 14:31 AW [id number]) Subjective Physical Therapy Visit Type Type Initial Evaluation Visit Start Time 13:20 Visit Stop Time 13:57 Total Visit Minutes 37 Physical Therapy Visit Comments Patient Comments Pt willing to participate in PT Patient Goals Pt hopes to return to [facility] Therapy Pain Assessment Pain When Pain Assessed During Mobility Location bilateral legs Scale Used pt unable to quantify or characterize pain during attempt to sit EOB Pain Behaviors Calling Out,Facial Grimacing M4 PT-IP Mobility and Gait Start: 01/25/19 13:12 Freq: NEEDED Status: Active Protocol: Document 01/25/19 14:03 AW (Rec: 01/25/19 14:31 AW [id number]) PT-Bed Mobility Assessment Rolling Type of Rolling Roll to Right Level of Assist Moderate Assistance Supine to Sit Supine to Sit Maximum Assistance,1 Person Assistance,2 Person Assistance ,Head of Bed Elevated,Bedrails Sit to Supine Sit to Supine Moderate Assistance Scooting Scooting to Edge of Bed Maximum Assistance Scooting Up and Down in Bed Maximum Assistance PT-Balance Assessment Sitting Balance and Reactions Static Sitting Balance Ability Poor Comments Other Balance Tests/Deviations/Treatment Pt unable to achieve upright : sitting EOB M5 PT-IP Objective Assessments Start: 01/25/19 13:12 Freq: NEEDED Status: Active Protocol: Document 01/25/19 14:03 AW (Rec: 01/25/19 14:31 AW [id number]) Orientation Orientation/Cognition Level of Alertness Confusional State Orientation Name,Place,Situation Language Function Ability No Deficits Noted Safety Awareness Decreased Safety Awareness Comments Pt describes independent transfers at [facility] but this is contradicted by previous PT notes and by conversation with [facility] nursing today. Gross Range of Motion Upper Extremity ROM Assessment Within Functional Limits Lower Extremity ROM Assessment Bilaterally Impaired Impairments 3-/5 hip flexion, knee extension, and ankle dorsiflexion bilaterally Strength Upper Extremity Strength Assessment Bilaterally Impaired Lower Extremity Strength Assessment Bilaterally Impaired Comments Strength Comments BUE grossly 4-/5; BLE grossly 3-/5 Sensation Assessment Sensation Gross Sensation WNL Comments Sensation Comments Pt able to identify random location of light touch on exam. Muscle Tone Muscle Tone WNL No Muscle Tone Location Bilateral Lower Extremity Type of Tone Hypotonicity M7 PT-IP Assessment and Plan Start: 01/25/19 13:12 Freq: NEEDED Status: Active Protocol: Document 01/25/19 14:03 AW (Rec: 01/25/19 14:31 AW [id number]) PT Summary Assessment and Plan Potential Rehabilitation Potential Poor Status of Condition at Evaluation Evolving Summary Impairments Pain,ROM,Strength,Balance,Tone ,Cognition,Bed Mobility, Transfers,Gait Assessment Summary Pt requires max assist x 2 or total assist for transfers. She appears to be functioning at her baseline level according to conversation with [facility] nursing, where she is reported to require mechanical lift for transfers to manual wheelchair which she is able to propel herself with upper extremities. No further PT intervention is required at this time. Frequency of Treatment Frequency Of Treatment Discharge
[2019-01-25] MEDS: glipiZIDE 5 MG TABLET PO (17:55)
[2019-01-25] MEDS: levETIRAcetam 250 MG TABLET 750 MG PO (21:33)
[2019-01-26] VITALS (9 sets, daily range): BP systolic 102–140; BP diastolic 66–90; PULSE 69–80; RESP 15–20; TEMP 36–36.9; O2SAT 94–99
[2019-01-26] MEDS: SODIUM CHLORIDE 0.9% 1,000 ML 150 ML IV ×2 (01:20→08:19)
[2019-01-26 06:16] LABS: Add Manual Diff / Slide Review NO; Basophils Absolute Auto 0 /uL (0-100); Basophils Percent Auto 0.6 % (0-2); Eosinophils Absolute Auto 0 /uL (0-450); Eosinophils Percent Auto 0.1 % (2-4); Hemoglobin 10.5 g/dL (12.0-16.0); Lymphocytes Absolute Auto 1300 /uL (1100-4500); Lymphocytes Percent Auto 20.3 % (25-40); Mean Corpuscular HGB Conc 33.7 % (30-36); Mean Corpuscular Hemoglobin 34.1 PG (26-34); Mean Corpuscular Volume 100.9 fL (80-100); Monocytes Absolute Auto 400 /uL (0-900); Monocytes Percent Auto 7.2 % (3-14); Neutrophils Absolute Auto 4500 /uL (1500-7000); Neutrophils Percent Auto 71.8 % (50-75); Platelet Count 197 X10^3/uL (150-400); Red Blood Cell Count 3.07 X10^6/uL (4.0-5.2); Red Cell Distribution Width 14.4 % (11.6-14.8); White Blood Cell Count 6.2 X10^3/uL (4.5-11.0)
[2019-01-26] MEDS: DEXAMETHASONE 4 MG/ML VIAL 2 MG IV (06:30)
[2019-01-26 06:43] LABS: Alanine Aminotransferase 111 IU/L (9-52); Albumin 2.9 g/dL (3.5-5.0); Albumin Globulin Ratio 1.2 (1.0-2.8); Alkaline Phosphatase 166 U/L (38-126); Aspartate Aminotransferase 107 IU/L (14-36); BUN Creatinine Ratio 18.3 (6-22); Bilirubin Total 0.8 mg/dL (0.2-1.3); Blood Urea Nitrogen 11 mg/dL (7-17); Calcium 8.1 mg/dL (8.4-10.2); Carbon Dioxide 23 mmol/L (22-32); Chloride 105 mmol/L (98-107); Estimated Glomerular Filt Rate > 60.0 mL/min (>60); Globulin 2.5 g/dL (1.7-4.1); Glucose 200 mg/dL (70-100); HEMOLYSIS < 15 (0-50); Potassium 3.4 mmol/L (3.4-5.1); Sodium 135 mmol/L (137-145); Total Protein 5.4 g/dL (6.3-8.2)
[2019-01-26 06:53] LABS: Lipase 373 U/L (23-300)
[2019-01-26] MEDS: ONDANSETRON 4 MG/2 ML INJ IV (08:23)
[2019-01-26] MEDS: PANTOPRAZOLE 40 MG VIAL IV (08:24)
[2019-01-26] MEDS: ENOXAPARIN 40 MG/0.4 ML SYRINGE SUBCUT ×2 (08:24→20:53)
[2019-01-26] MEDS: INSULIN ASPART 100 UNIT/ML INSULN PEN SUBCUT ×4 (09:00→20:55)
[2019-01-26] MEDS: MIDODRINE HCL 5 MG TABLET PO ×3 (09:03→20:54)
[2019-01-26] MEDS: CITALOPRAM 20 MG TABLET PO (09:03)
[2019-01-26] MEDS: levETIRAcetam 250 MG TABLET 500 MG PO (09:04)
[2019-01-26] MEDS: glipiZIDE 5 MG TABLET PO ×2 (09:07→17:06)
--- NOTE | 2019-01-26 10:16 | OT.IP.EVAL ---
Current Diagnoses Acute kidney failure, unspecified (01/24/19) Past Medical History (Last Reviewed 01/24/19 @ 14:54 by Haroldo Shaw DO) Anxiety (Chronic) Chicken pox (Resolved ~1966) Cognitive dysfunction (Chronic) Depression (Chronic) Diabetes mellitus type 2, insulin dependent (Chronic ~2007) Fecal incontinence (Chronic) Fractures (Resolved ~2017) GERD without esophagitis (Chronic) Hearing loss (Chronic ~2016) High serum lactate (Chronic) Measles (Resolved ~1963) Oligodendroglioma (Chronic ~2011) Orthostatic hypotension (Chronic) Other and unspecified hyperlipidemia (Chronic) Ovarian cyst (Chronic ~1983) Seizure disorder (Chronic) Urinary incontinence (Chronic ~2015) Vision disorder (Chronic) Surgical History (Last Reviewed 01/24/19 @ 14:54 by Haroldo Shaw DO) Anesthesia (Resolved) H/O pelvic surgery (Inactive ~2016) History of cholecystectomy (Resolved ~1987) History of hysterectomy (Resolved ~1988) Occupational Therapy Inpatient Evaluation/Re-Eval M1 PT/OT-IP Prior Functional Status Start: 01/25/19 13:12 Freq: NEEDED Status: Active Protocol: Document 01/26/19 10:06 CGR (Rec: 01/26/19 10:16 CGR [id number]) Medical Review Prior Functional Status Medical History Reviewed Yes Diet/Fluid Consistency Clear Liquids Communication Able to make needs known Mobility and Gait Pt reports she uses a manual wheelchair for mobility needs at baseline. She states she was transferring independently bed to w/c and w/c to toilet. She describes a squat pivot transfer without use of assistive device. From 12/09/18 PT eval: per [facility] : pt is dependent with all mobilities; uses a frida lift for transfers and is non- ambulatory; has a manual w/c and able to propel using her UE. This information was confirmed by PT with a call to nursing at [facility] and reconfirmed by OT when calling for ADL information. Activities of Daily Living and IADL's Pt lives at [facility], receives meals and help with medications. She is able to perform grooming and hygiene seated with verbal cues and set up but was dependent for toileting, bathing and dressing per [facility] staff via phone call made by OT to obtain PLOF. Social History Household Members caregiver,other Living Arrangements Assisted Living Number of Floors (Floors) One Floor Number of Stairs To Enter/Railing? 0 NATE Home Equipment Manual Wheelchair,Mechanical Lift,Hospital Bed,Bed Rails Additional Social History Comment disabled M2 OT-IP Current Condition Start: 01/26/19 10:05 Freq: Status: Active Protocol: Document 01/26/19 10:06 CGR (Rec: 01/26/19 10:16 CGR [id number]) Occupational Therapy Current Condition Current Condition Evaluation Date 01/26/19 Treatment Diagnosis Weakness M3 OT- IP Subjective and Pain Start: 01/26/19 10:05 Freq: Status: Active Protocol: Document 01/26/19 10:06 CGR (Rec: 01/26/19 10:16 CGR [id number]) OT- Subjective Occupational Therapy Visit Type Type Initial Evaluation Visit Start Time 09:55 Visit Stop Time 10:05 Total Visit Minutes 10 Notes Time for calling [facility] not added into the above time. OT Pain Assessment Pain When Pain Assessed At Rest Pain Present Pain Present Denied Pain M4 OT- IP ADL's Start: 01/26/19 10:05 Freq: Status: Active Protocol: Document 01/26/19 10:06 CGR (Rec: 01/26/19 10:16 CGR [id number]) OT QCC-Cavl-Lxlytfo General Evaluation Self-Feeding Ability Independent Comments OT Self-Feeding Comments Pt completing breakfast when OT entered. Pt is IND with set up and at her baseline. OT ADL-Grooming General Evaluation Grooming Ability Standby Assistance Areas Needing Assistance Combing/Brushing Hair,Face Washing Comments OT Grooming Comments Verbal cues to perform seated in bed with set up. OT ADL-Oral Care General Eval Oral Care Ability Standby Assistance Areas of Assistance Brushing Teeth,Retrieving/Set- Up of Items Comments Oral Care Comments Verbal cues to perform seated in bed with set up. OT ADL-Dressing Comments OT Dressing Comments Not performed, pt is dependent at baseline. OT ADL-Toileting Comments OT Toileting Comments Not performed, pt is dependent at baseline. OT ADL-Bathing Comments OT Bathing Comments Not performed, pt is dependent at baseline. M5 OT- IP IADL's Start: 01/26/19 10:05 Freq: Status: Active Protocol: Document 01/26/19 10:06 CGR (Rec: 01/26/19 10:16 CGR [id number]) OT-Instrumental Activities of Daily Living Deficits IADL Deficits Identified Deficits Home Safety Awareness Awareness of Need for Assistance at Home Decreased Awareness Ability to Problem Solve Emergency Unable to Problem Solve Situations Medication Management Medication Management Caregiver Administers Money Management Money Management Caregiver Provides Assistance Meal Preparation Meal Preparation Caregiver Provides Assist Lighter Lighter Caregiver Provides Assist Driving Driving Caregiver Provides Assist M6 OT- IP Functional Cognition Start: 01/26/19 10:05 Freq: Status: Active Protocol: Document 01/26/19 10:06 CGR (Rec: 01/26/19 10:16 CGR [id number]) Cognitive Factors Limiting Selfcare Function Cognitive Ability Level of Alertness Alert Patient Orientation Name,Birthday Attention Span Ability Capable of Focused Attention Ability to Follow Commands Able to Follow One Step Commands with Increased Time, Able to Follow One Step Commands with Repetition Cognitive Comments Cognitive Assessment Comments Per [facility] staff pt is often confused but seems to have good days and bad days. M8 OT- IP Objective Assessments Start: 01/26/19 10:05 Freq: Status: Active Protocol: Document 01/26/19 10:06 CGR (Rec: 01/26/19 10:16 CGR [id number]) OT Gross Range of Motion Upper Extremity Range of Motion Assessment Within Functional Limits OT Strength Upper Extremity Strength Assessment Within Functional Limits Comments Strength Comments grossly 4/5 OT- Coordination Assessment Upper Extremity Finger to Nose Test Within Functional Limits Finger Tapping Test Within Functional Limits OT-Muscle Tone Assessment Muscle Tone WNL Yes OT Sensation Assessment Comments Summary Comments Pt states typical. M9 OT- IP Assessment and Plan Start: 01/26/19 10:05 Freq: Status: Active Protocol: Document 01/26/19 10:06 CGR (Rec: 01/26/19 10:16 CGR [id number]) OT Summary Assessment and Plan Potential Rehabilitation Potential Poor Analytic Complexity at Evaluation Low Summary OT Impairments Strength,Functional Cognition, Functional Mobility,Dressing, Toileting,Bathing,Toilet Transfers,Shower Transfers Progress Towards Goals Safe For Discharge Assessment Summary Pt presents as a low complexity eval d/t pt's baseline abilities are minimal . Pt lives at a care center and needs dependent care for all except verbal cues and set up for basic grooming and hygiene seated and feeding. Pt presents at her baseline. No further OT needs. Frequency of Treatment Frequency Of Treatment Discharge Discharge Recommendations Other Discharge Recommendations Return to [facility]
--- NOTE | 2019-01-26 12:31 | PM.PN.1 ---
Subjective Subjective Date Patient Seen: 01/26/19 Time Patient Seen: 07:15 Interval history: Patient is lying in bed comfortably. No shortness of breath lying flat on her back. SCDs are in place. She has tolerated clears without any further nausea, vomiting or diarrhea. She has had no stool since she was admitted however she has only had clears. Exam Vital Signs (past 8 hours): - 01/26/19 05:45 01/26/19 08:05 01/26/19 09:00 Temperature 96.8 F L 97.6 F Pulse Rate 69 69 Respiratory Rate 17 18 Blood Pressure 118/75 131/69 Pulse Oximetry 98 99 94 01/26/19 11:15 Temperature 98.5 F Pulse Rate 71 Respiratory Rate 16 Blood Pressure 140/90 Pulse Oximetry 98 Oxygen Delivery Method Room Air Oxygen Flow Rate 0 Narrative Exam Narrative: Middle-aged female who looks older than stated age in no obvious distress lying in her hospital bed with obvious cushingoid changes in her face, pale HEENT-normocephalic, ecchymosis to the right zygomatic arch Lungs-good breath sounds without wheezes Heart-regular rate and rhythm no murmur Abdomen-positive bowel tones soft, non-tender, obesity limits exam, no noted hepatosplenomegaly no masses palpable Extremities-1+ edema along both shins, warm, SCDs in place Neuro-patient moves all 4 extremities. Gait not tested. Gross sensation and movement normal Objective Labs Result Diagrams: 01/26/19 06:00 01/26/19 06:00 Labs: Laboratory Results - last 24 hr 01/26/19 01/26/19 01/26/19 06:00 06:00 06:00 WBC 6.2 RBC 3.07 L Hgb 10.5 L Hct 31.0 L MCV 100.9 H MCH 34.1 H MCHC 33.7 RDW 14.4 Plt Count 197 Neut % (Auto) 71.8 Lymph % (Auto) 20.3 L Ware % (Auto) 7.2 Eos % (Auto) 0.1 L Baso % (Auto) 0.6 Neut # (Auto) 4500 Lymph # (Auto) 1300 Ware # (Auto) 400 Eos # (Auto) 0 Baso # (Auto) 0 Sodium 135 L Potassium 3.4 Chloride 105 Carbon Dioxide 23 BUN 11 Creatinine 0.60 Estimated GFR > 60.0 BUN/Creatinine Ratio 18.3 Glucose 200 H Calcium 8.1 L Total Bilirubin 0.8 AST 107 H ALT 111 H Alkaline Phosphatase 166 H Total Protein 5.4 L Albumin 2.9 L Globulin 2.5 Albumin/Globulin Ratio 1.2 Lipase 373 H Assessment & Plan Assessment & Plan narrative: Acute renal failure from dehydration. Resolved. Will continue to monitor. Hypokalemia. Hypomagnesium. Repleted. Pancreatitis. ?Acute or chronic. Lipase was 706 at last admission and now 807. Has responded well to parental fluids. Tolerating clears. Decrease IV fluids. Advance diet. Leukocytosis. Evidence of colitis on CT scan. C. diff? Patient has had recent antibiotics. No stool so C. diff ruled out. UTI Given her fecal incontinence she is at high risk of recurrent UTI. Dose of levofloxacin in ED, continue today. Diabetes. Hemoglobin A1c was 8.5. Restarted glyburide yesterday. Home dose of lantus 70 am/60 pm. Will restart 30 units today. If she is able to eat will consider her full dose tomorrow. 10 pound weight loss since last discharge 9 days ago. Hold diuretics for now since she was dehydrated on admission. Monitor for signs of fluid overload. Continue home meds for seizure disorder. Intertrigo. continue with nystatin. Early stage I pressure ulcer to buttocks present on admission. Reposition. Barrier cream. Code status: DNR DVT prophylaxis: lovenox Disposition: Patient really needs higher level of care than can be provided at [place]. Care management working with [facility]. She will need another 24-48 hours of care while we advance her diet and tune her antidiabetic agents. Greater than 35 minutes was spent evaluating the patient on the floor, including examining the patient, discussing clinical course with clinical and nursing staff, reviewing clinical course in the computer, preparing documentation and writing orders for continued management of care, discussing status with family as appropriate, reviewing plans for the next 24 hours with both patient, family and nursing staff as appropriate. Time Spent With Patient Time with patient: Greater than 35 minutes
[2019-01-26 12:36] LABS: Adenovirus F 40/41 Not Detected (Not Detect); Astrovirus Not Detected (Not Detect); Campylobacter Not Detected (Not Detect); Clostridium difficile toxin AB Not Detected (Not Detect); Cryptosporidium Not Detected (Not Detect); Cyclospora cayetanensis Not Detected (Not Detect); Entamoeba histolytica Not Detected (Not Detect); Enteroaggregative E.coli Not Detected (Not Detect); Enteropathogenic E.coli Not Detected (Not Detect); Enterotoxigenic E.coli It/st Not Detected (Not Detect); Giardia lamblia Not Detected (Not Detect); Norovirus GI/GII Not Detected (Not Detect); Plesiomonsa shigelloides Not Detected (Not Detect); Rotavirus A Not Detected (Not Detect); Salmonella Not Detected (Not Detect); Shiga-like toxin-prod E.coli Not Detected (Not Detect); Shigella/Enteroinvasive E.coli Not Detected (Not Detect); Vibrio Not Detected (Not Detect); Vibrio cholerae Not Detected (Not Detect); Yersinia enterocolitica Not Detected (Not Detect)
[2019-01-26] MEDS: INSULIN GLARGINE 100 UNIT/ML 3ML PEN 30 UNIT SUBCUT (12:46)
[2019-01-26] MEDS: ASPIRIN EC 81 MG TABLET PO (12:47)
--- NOTE | 2019-01-26 14:17 | PC.NURSE ---
Addendum entered by Radha Hernandez R.N. 01/26/19 14:29: GI - verified with Janet in lab all stool from gi panel, including cdiff are neg. Original Note: AM NOTE - pt awakens easily, slightly delayed speech pattern, appropriate responses, denies pain, scattered bruising r cheek, r &l forearms, r torso, le, per pt hx falls, some underlying nausea zofran given, later karen clear liq, incont urine and stool, has pink slight rash at groin, reddened coccyx area and gluteal cleft has a small open slit, a 2nd small open area below, bs coarse, clear, hermelindo care performed, barrier cream applied, waffle cushion under buttock. Later am incont loose and soft formed stool, gi panel sent.
[2019-01-26] MEDS: levoFLOXacin 500 MG TABLET PO (14:33)
[2019-01-26] MEDS: FOLIC ACID 0.4 MG TABLET PO (17:05)
[2019-01-26] MEDS: dexAMETHasone 1 MG TABLET 2 MG PO (20:53)
[2019-01-26] MEDS: SODIUM CHLORIDE 0.9% FLUSH 10 ML IV (20:54)
[2019-01-26] MEDS: levETIRAcetam 250 MG TABLET 750 MG PO (20:54)
[2019-01-26] MEDS: SODIUM CHLORIDE 0.9% 1,000 ML 75 ML IV (21:36)
[2019-01-27] VITALS (7 sets, daily range): BP systolic 112–152; BP diastolic 57–77; PULSE 65–91; RESP 18–21; TEMP 36–36.5; O2SAT 94–100
[2019-01-27 06:11] LABS: Add Manual Diff / Slide Review NO; Basophils Absolute Auto 0 /uL (0-100); Basophils Percent Auto 0.8 % (0-2); Eosinophils Absolute Auto 0 /uL (0-450); Eosinophils Percent Auto 0.3 % (2-4); Lymphocytes Absolute Auto 1100 /uL (1100-4500); Lymphocytes Percent Auto 20.1 % (25-40); Mean Corpuscular HGB Conc 33.5 % (30-36); Mean Corpuscular Hemoglobin 33.7 PG (26-34); Mean Corpuscular Volume 100.8 fL (80-100); Monocytes Absolute Auto 500 /uL (0-900); Monocytes Percent Auto 8.8 % (3-14); Neutrophils Absolute Auto 4000 /uL (1500-7000); Platelet Count 204 X10^3/uL (150-400); Red Blood Cell Count 3.27 X10^6/uL (4.0-5.2); Red Cell Distribution Width 14.3 % (11.6-14.8); White Blood Cell Count 5.7 X10^3/uL (4.5-11.0)
[2019-01-27 06:21] LABS: Lactate (Lactic Acid) 0.9 mmol/L (0.7-2.1)
[2019-01-27 06:22] LABS: Alanine Aminotransferase 113 IU/L (9-52); Albumin 2.9 g/dL (3.5-5.0); Albumin Globulin Ratio 1.2 (1.0-2.8); Alkaline Phosphatase 163 U/L (38-126); Aspartate Aminotransferase 104 IU/L (14-36); Bilirubin Total 0.7 mg/dL (0.2-1.3); Blood Urea Nitrogen 7 mg/dL (7-17); Calcium 8.2 mg/dL (8.4-10.2); Carbon Dioxide 21 mmol/L (22-32); Chloride 104 mmol/L (98-107); Estimated Glomerular Filt Rate > 60.0 mL/min (>60); Globulin 2.5 g/dL (1.7-4.1); Glucose 240 mg/dL (70-100); HEMOLYSIS < 15 (0-50); Lipase 383 U/L (23-300); Potassium 3.3 mmol/L (3.4-5.1); Sodium 133 mmol/L (137-145); Total Protein 5.4 g/dL (6.3-8.2)
[2019-01-27] MEDS: INSULIN ASPART 100 UNIT/ML INSULN PEN SUBCUT ×4 (08:03→22:15)
[2019-01-27] MEDS: PANTOPRAZOLE 40 MG VIAL IV (08:13)
[2019-01-27] MEDS: glipiZIDE 5 MG TABLET PO ×2 (08:20→17:31)
[2019-01-27] MEDS: levETIRAcetam 250 MG TABLET 500 MG PO (08:21)
[2019-01-27] MEDS: dexAMETHasone 1 MG TABLET 2 MG PO ×2 (08:21→22:09)
[2019-01-27] MEDS: CITALOPRAM 20 MG TABLET PO (08:21)
[2019-01-27] MEDS: ASPIRIN EC 81 MG TABLET PO (08:21)
[2019-01-27] MEDS: MIDODRINE HCL 5 MG TABLET PO ×3 (08:22→22:10)
[2019-01-27] MEDS: ENOXAPARIN 40 MG/0.4 ML SYRINGE SUBCUT ×2 (08:23→22:14)
[2019-01-27] MEDS: INSULIN GLARGINE 100 UNIT/ML 3ML PEN 45 UNIT SUBCUT (08:25)
[2019-01-27] MEDS: NYSTATIN POWDER 15GM 1 APPLIC TOP (08:31)
--- NOTE | 2019-01-27 09:30 | P.PN_ITS ---
Subjective Subjective Date Patient Seen: 01/27/19 Time Patient Seen: 07:45 Interval history: Patient reports she is feeling much better this morning. Tolerated a full liquid diet last night. Denies abdominal pain or any pain. Exam Vital Signs (past 8 hours): - 01/27/19 05:10 01/27/19 08:00 Temperature 97.3 F L 96.8 F L Pulse Rate 65 72 Respiratory Rate 21 18 Blood Pressure 127/77 125/74 Pulse Oximetry 97 100 Oxygen Delivery Method Room Air Oxygen Flow Rate 0 Narrative Exam Narrative: General: Chronically ill-appearing, morbidly obese woman, appears older than stated age. Awake and alert, no acute distress. HEENT: NCAT, EOMI, moist oral mucosa CV: Regular rate and rhythm, no murmurs, rubs or gallops Lungs: CTAB, no wheezes, rales, or rhonchi Abdomen: Large, obese abdomen. Active bowel tones x4. Soft, tender throughout without guarding. Extremities: Warm, 1+ edema bilaterally, SCDs in place Objective Labs Result Diagrams: 01/27/19 05:58 01/27/19 05:58 Labs: Laboratory Results - last 24 hr 01/26/19 01/27/19 01/27/19 10:45 05:58 05:58 WBC 5.7 RBC 3.27 L Hgb 11.0 L Hct 33.0 L MCV 100.8 H MCH 33.7 MCHC 33.5 RDW 14.3 Plt Count 204 Neut % (Auto) 70.0 Lymph % (Auto) 20.1 L Refugio % (Auto) 8.8 Eos % (Auto) 0.3 L Baso % (Auto) 0.8 Neut # (Auto) 4000 Lymph # (Auto) 1100 Refugio # (Auto) 500 Eos # (Auto) 0 Baso # (Auto) 0 Sodium 133 L Potassium 3.3 L Chloride 104 Carbon Dioxide 21 L BUN 7 Creatinine 0.50 L Estimated GFR > 60.0 BUN/Creatinine Ratio 14.0 Glucose 240 H Lactate Calcium 8.2 L Total Bilirubin 0.7 AST 104 H ALT 113 H Alkaline Phosphatase 163 H Total Protein 5.4 L Albumin 2.9 L Globulin 2.5 Albumin/Globulin Ratio 1.2 Lipase Stl C. cayetanensis PCR Not detected Stool Rotavirus (PCR) Not detected Stool Adenovirus (PCR) Not detected Stool Astrovirus (PCR) Not detected Stool Cryptosporidium PCR Not detected Stl E.coli Shiga Tox PCR Not detected St Sh/Enteroin Ecoli PCR Not detected Stool E coli O157 PCR Not detected Stl Enterotoxigenic E PCR Not detected Stool EPEC (PCR) Not detected Stl E. histolytica PCR Not detected Stool Giardia Lamblia PCR Not detected Stl P. shigelloides PCR Not detected St Y.enterocolitica PCR Not detected Stool Vibrio (PCR) Not detected Stl Vibrio cholerae PCR Not detected Stl Enteroaggr Ecoli PCR Not detected Stl Norovirus GI/GII PCR Not detected Campylobacter (PCR) Not detected C. difficile Tox (PCR) Not detected Salmonella (PCR) Not detected 01/27/19 01/27/19 05:58 05:58 WBC RBC Hgb Hct MCV MCH MCHC RDW Plt Count Neut % (Auto) Lymph % (Auto) Refugio % (Auto) Eos % (Auto) Baso % (Auto) Neut # (Auto) Lymph # (Auto) Refugio # (Auto) Eos # (Auto) Baso # (Auto) Sodium Potassium Chloride Carbon Dioxide BUN Creatinine Estimated GFR BUN/Creatinine Ratio Glucose Lactate 0.9 Calcium Total Bilirubin AST ALT Alkaline Phosphatase Total Protein Albumin Globulin Albumin/Globulin Ratio Lipase 383 H Stl C. cayetanensis PCR Stool Rotavirus (PCR) Stool Adenovirus (PCR) Stool Astrovirus (PCR) Stool Cryptosporidium PCR Stl E.coli Shiga Tox PCR St Sh/Enteroin Ecoli PCR Stool E coli O157 PCR Stl Enterotoxigenic E PCR Stool EPEC (PCR) Stl E. histolytica PCR Stool Giardia Lamblia PCR Stl P. shigelloides PCR St Y.enterocolitica PCR Stool Vibrio (PCR) Stl Vibrio cholerae PCR Stl Enteroaggr Ecoli PCR Stl Norovirus GI/GII PCR Campylobacter (PCR) C. difficile Tox (PCR) Salmonella (PCR) Assessment & Plan Assessment and plan (1) Acute UTI: Current visit: No Status: Acute (2) Acute kidney injury: Current visit: Yes Status: Acute (3) Diarrhea: Current visit: Yes Status: Acute (4) Acute dehydration: Current visit: Yes Status: Acute (5) Acute pancreatitis: Current visit: Yes Status: Acute (6) Diabetes mellitus type 2, insulin dependent: Problem details: Hugh Current visit: No Status: Chronic Assessment & Plan narrative: Acute renal failure from dehydration: Resolved. Patient tolerating full liquid diet. Will d/c IVF and advance diet as tolerated. Pancreatitis: Question acute vs chronic, lipase is stable though not back to normal. Clinically improved, advancing diet as above. UTI: Continue levofloxacin. Diabetes: Restart Lantus as she is eating more. Will start at half her usual dosing, continue to monitor blood sugars and increase as indicated. Seizure disorder: Continue home meds for seizure disorder. Intertrigo. continue with nystatin. Stage I pressure ulcer to buttocks, present on admission: Barrier cream and positioning per nursing. Code status: DNR DVT prophylaxis: lovenox Disposition: Working toward discharge to a higher level of care than previous. Appreciate care management support. Unfortunately she is considered at her baseline functionally and does not qualify for custodial. Will be evaluated by [facility] today.
[2019-01-27] MEDS: SODIUM CHLORIDE 0.9% FLUSH 10 ML IV ×3 (11:15→22:11)
--- NOTE | 2019-01-27 11:43 | PC.NURSE ---
AM NOTE - pt is awake, speech is clear, delayed reponses, incont small qty liq stool, hermelindo care performed, has small slit opening at gluteal fold, coccyx area and a smaller open area below near anus, barrier cream applied and pt repositioned, ivf saline locked, karen full liq cream wheat, was hungry this am, ra 97%.
--- NOTE | 2019-01-27 11:45 | PT.IPTN ---
Current Diagnoses Acute kidney failure, unspecified (01/24/19) Physical Therapy Treatment Note M2 PT-IP Current Condition Start: 01/25/19 13:12 Freq: NEEDED Status: Active Protocol: Document 01/25/19 14:03 AW (Rec: 01/25/19 14:31 AW [id number]) Physical Therapy Current Condition Current Condition Evaluation Date 01/25/19 Treatment Diagnosis acute renal failure, stage I pressure injury, impaired bed mob/transfers Precautions Other Precautions high falls risk Weight Bearing Status Weight Bearing Status Full Weight Bearing M3 PT-IP Subjective Start: 01/25/19 13:12 Freq: NEEDED Status: Active Protocol: Document 01/27/19 11:42 AB (Rec: 01/27/19 11:45 AB [id number]) Subjective Physical Therapy Visit Type Type Administrative Note Notes Received PT eval order. pt was just evaluated 01/25/19 and pt is at PLOF and was d/c' d from PT. pt is a resident of [facility] and is a mechanical lift transfer and uses a manual w/c for mobility. Dr. Jose ordered PT eval for d/c planning. Talked to manager net and pt's nurse regarding pt's mobility level and pt is at PLOF. pt will require a mechanical lift transfer. per evaluating PT, pt can go back to [facility]. informed manager net regarding recommendation. will d/c PT eval order.
[2019-01-27] MEDS: POTASSIUM CHLORIDE 20 MEQ TAB 40 MEQ PO (12:52)
[2019-01-27] MEDS: levoFLOXacin 500 MG TABLET PO (13:28)
--- NOTE | 2019-01-27 16:23 | CM.DANOTE ---
DCP/continued: Received notification from therapy that patient is at her physical baseline. Current d/c recommendation is for patient to return to [facility]. Spoke with Dr. Jose whom is covering for Dr. Yun, she reports that Dr. Yun was hoping for patient to go to [facility]. However, patient appears to be at physical baseline and most likely will need to return to previous level of care. If long-term planning needed, this can be done at [facility] with family and Medicaid CM. Left vm with Violet at [facility] requesting evaluation for patient's return within the next 24-48hrs. Dr. Yun will be resuming care tomorrow. RN/CM Mary Chatman met with patient and she is in agreement to return to [facility]. P: Anticipate return to [facility]. CM team to follow closely. MERRY Jamil
[2019-01-27] MEDS: FOLIC ACID 0.4 MG TABLET PO (17:31)
[2019-01-27] MEDS: levETIRAcetam 250 MG TABLET 750 MG PO (22:10)
[2019-01-27] MEDS: INSULIN GLARGINE 100 UNIT/ML 3ML PEN 30 UNIT SUBCUT (22:12)
[2019-01-28] VITALS (7 sets, daily range): BP systolic 120–152; BP diastolic 64–90; PULSE 75–96; RESP 16–18; TEMP 36.3–36.9; O2SAT 95–97
--- NOTE | 2019-01-28 00:06 | PC.NURSE ---
Glass Bulb Silverer Note: 0000: Awake, alert, oriented to person and place. Incontinent of urine. Vital signs stable. IVs in place in lt AC and rt hand. Brenda care given, clean brief on. No stool in brief. Barrier cream applied. Turned and repositioned.
[2019-01-28 06:25] LABS: Alanine Aminotransferase 100 IU/L (9-52); Albumin 2.8 g/dL (3.5-5.0); Albumin Globulin Ratio 1.1 (1.0-2.8); Alkaline Phosphatase 165 U/L (38-126); Aspartate Aminotransferase 86 IU/L (14-36); Bilirubin Total 0.6 mg/dL (0.2-1.3); Blood Urea Nitrogen 6 mg/dL (7-17); Calcium 8.4 mg/dL (8.4-10.2); Carbon Dioxide 24 mmol/L (22-32); Chloride 105 mmol/L (98-107); Estimated Glomerular Filt Rate > 60.0 mL/min (>60); Globulin 2.5 g/dL (1.7-4.1); Glucose 249 mg/dL (70-100); HEMOLYSIS < 15 (0-50); Lipase 804 U/L (23-300); Potassium 3.4 mmol/L (3.4-5.1); Sodium 135 mmol/L (137-145); Total Protein 5.3 g/dL (6.3-8.2)
--- NOTE | 2019-01-28 08:08 | P.PN_ITS ---
Subjective Subjective Date Patient Seen: 01/28/19 Time Patient Seen: 07:30 Interval history: Patient states that she is feels better this morning. Denies chest pain, SOB, abdominal pain. States that eating is going well with her advanced diet. She does not remember having a bowel movement yesterday. She tells me that she's at [place] but then says no she's in [facility], does know that it is Saturday. Exam Vital Signs (past 8 hours): - 01/28/19 03:25 Temperature 97.4 F L Pulse Rate 81 Respiratory Rate 16 Blood Pressure 122/64 Pulse Oximetry 97 Oxygen Delivery Method Room Air Oxygen Flow Rate 0 HENMT Head: normal to inspection Resp Effort & Inspection: normal respiratory effort and able to speak in complete sentences Auscultation: clear to auscultation bilaterally and diminished lung sounds (Diminished lung sounds in the bilateral bases. No focal deficits.) GI Inspection: obesity Palpation: soft and no hepatosplenomegaly Auscultation: normal bowel sounds Skin Other: Diffuse bruising on upper extremities, L>R Psych Attitude: cooperative Judgment: poor Other: Mildly blunt affect with some confusion. Objective Labs Result Diagrams: 01/27/19 05:58 01/28/19 05:55 Labs: Laboratory Results - last 24 hr 01/28/19 05:55 Sodium 135 L Potassium 3.4 Chloride 105 Carbon Dioxide 24 BUN 6 L Creatinine 0.60 Estimated GFR > 60.0 BUN/Creatinine Ratio 10.0 Glucose 249 H Calcium 8.4 Total Bilirubin 0.6 AST 86 H ALT 100 H Alkaline Phosphatase 165 H Total Protein 5.3 L Albumin 2.8 L Globulin 2.5 Albumin/Globulin Ratio 1.1 Lipase 804 H D Assessment & Plan Assessment and plan (1) Acute UTI: Current visit: No Status: Acute (2) Acute kidney injury: Current visit: Yes Status: Acute (3) Diarrhea: Current visit: Yes Status: Acute (4) Acute dehydration: Current visit: Yes Status: Acute (5) Acute pancreatitis: Current visit: Yes Status: Acute (6) Diabetes mellitus type 2, insulin dependent: Problem details: Hugh Current visit: No Status: Chronic Assessment & Plan narrative: Acute renal failure from dehydration: Resolved. Patient tolerating regular diet. Pancreatitis vs colitis: Question acute vs chronic, lipase increased today question whether this is a medication side effect. Will stop glipizide. Clinically improved, tolerating regular diet. UTI: Continue levofloxacin until tomorrow. Diabetes: Increase Lantus to home dose tonight and increase her coverage to high dose. Stop glipizide. Will not restart her metformin, this may be contributing to her elevated lactate. Continue to monitor sugars. Dependent lower extremity edema. Has been improved here with SCD's but she has been mostly supine. Will do a trial without her furosemide. Seizure disorder: Continue home meds for seizure disorder. Intertrigo. continue with nystatin. Stage I pressure ulcer to buttocks, present on admission: Barrier cream and positioning per nursing. Code status: DNR DVT prophylaxis: christin Anticipate discharge to [facility] tomorrow if all continues to plan.
[2019-01-28] MEDS: INSULIN ASPART 100 UNIT/ML INSULN PEN SUBCUT ×4 (08:11→21:54)
[2019-01-28] MEDS: INSULIN GLARGINE 100 UNIT/ML 3ML PEN 45 UNIT SUBCUT (08:11)
[2019-01-28] MEDS: PANTOPRAZOLE 40 MG VIAL IV (08:28)
[2019-01-28] MEDS: ENOXAPARIN 40 MG/0.4 ML SYRINGE SUBCUT ×2 (08:28→21:15)
[2019-01-28] MEDS: ASPIRIN EC 81 MG TABLET PO (08:28)
[2019-01-28] MEDS: levETIRAcetam 250 MG TABLET 500 MG PO (08:28)
[2019-01-28] MEDS: CITALOPRAM 20 MG TABLET PO (08:28)
[2019-01-28] MEDS: MIDODRINE HCL 5 MG TABLET PO ×3 (08:29→21:20)
[2019-01-28] MEDS: dexAMETHasone 1 MG TABLET 2 MG PO ×2 (08:29→21:19)
[2019-01-28] MEDS: glipiZIDE 5 MG TABLET PO (08:31)
[2019-01-28] MEDS: SODIUM CHLORIDE 0.9% FLUSH 10 ML IV ×2 (08:32→21:21)
--- NOTE | 2019-01-28 13:56 | CM.DPC ---
DCP Cont: ALEX called [facility] Violet and updated that pt may likely d/c today and she confirmed that RN Marcela will complete bedside assessment with pt around 0930 this morning to confirm they can accept pt back as pt not currently qualifying for SNF as she is back to her baseline. Per [facility], assessment complete and they can accept pt when stable for d/c. ALEX updated who states pt likely will d/c tomorrow 01/29/19 and ALEX updated [facility]. Plan: ALEX to follow for likely pt d/c back to [facility] tomorrow if medically stable. Gloria Mobley, PRN OCCUPATIONAL THERAPIST
[2019-01-28] MEDS: levoFLOXacin 500 MG TABLET PO (14:21)
--- NOTE | 2019-01-28 14:22 | PC.NURSE ---
Pt sitting up in chair comfortably for about two hours today. Reweighed pt and she weight was 132.5kg. Denies pain. Pt has several bruises all over her body from falling out of her wheelchair at [facility]. Getting patient back to bed now with frida lift.
[2019-01-28] MEDS: FOLIC ACID 0.4 MG TABLET PO (17:26)
[2019-01-28] MEDS: levETIRAcetam 250 MG TABLET 750 MG PO (21:19)
[2019-01-28] MEDS: INSULIN GLARGINE 100 UNIT/ML 3ML PEN 60 UNIT SUBCUT (21:21)
[2019-01-29] VITALS (9 sets, daily range): BP systolic 120–172; BP diastolic 73–94; PULSE 68–80; RESP 14–22; TEMP 35.7–36.7; O2SAT 94–98
[2019-01-29 06:46] LABS: Alanine Aminotransferase 100 IU/L (9-52); Albumin 2.9 g/dL (3.5-5.0); Albumin Globulin Ratio 1.1 (1.0-2.8); Alkaline Phosphatase 177 U/L (38-126); Aspartate Aminotransferase 81 IU/L (14-36); BUN Creatinine Ratio 13.3 (6-22); Bilirubin Total 0.4 mg/dL (0.2-1.3); Blood Urea Nitrogen 8 mg/dL (7-17); Calcium 8.9 mg/dL (8.4-10.2); Carbon Dioxide 24 mmol/L (22-32); Chloride 105 mmol/L (98-107); Estimated Glomerular Filt Rate > 60.0 mL/min (>60); Globulin 2.6 g/dL (1.7-4.1); Glucose 216 mg/dL (70-100); HEMOLYSIS < 15 (0-50); Lipase 872 U/L (23-300); Magnesium 1.2 mg/dL (1.6-2.3); Potassium 3.5 mmol/L (3.4-5.1); Sodium 136 mmol/L (137-145); Total Protein 5.5 g/dL (6.3-8.2)
[2019-01-29] MEDS: MAGNESIUM SULFATE 2 GM/50 ML PIGGYBACK IV (08:42)
[2019-01-29] MEDS: MIDODRINE HCL 5 MG TABLET PO ×3 (08:48→21:19)
[2019-01-29] MEDS: dexAMETHasone 1 MG TABLET 2 MG PO ×2 (08:48→21:18)
[2019-01-29] MEDS: ENOXAPARIN 40 MG/0.4 ML SYRINGE SUBCUT ×2 (08:48→21:19)
[2019-01-29] MEDS: PANTOPRAZOLE 40 MG VIAL IV (08:48)
[2019-01-29] MEDS: CITALOPRAM 20 MG TABLET PO (08:48)
[2019-01-29] MEDS: ASPIRIN EC 81 MG TABLET PO (08:48)
[2019-01-29] MEDS: levETIRAcetam 250 MG TABLET 500 MG PO (08:48)
[2019-01-29] MEDS: INSULIN GLARGINE 100 UNIT/ML 3ML PEN 75 UNIT SUBCUT (08:50)
[2019-01-29] MEDS: SODIUM CHLORIDE 0.9% FLUSH 10 ML IV ×2 (08:50→21:28)
--- NOTE | 2019-01-29 13:07 | P.PN_ITS ---
Subjective Subjective Date Patient Seen: 01/29/19 Time Patient Seen: 08:15 Interval history: Patient is lying in bed comfortably this morning. No acute complaints this morning. Eating is going well. Denies chest pain, SOB, abdominal pain, nausea, vomiting. Is passing gas,tells me she continues with loose stools.. Exam Vital Signs (past 8 hours): - 01/29/19 07:00 01/29/19 08:00 01/29/19 11:00 Temperature 97.5 F L 97.5 F L Pulse Rate 68 80 Respiratory Rate 14 16 Blood Pressure 141/79 H 172/73 H Pulse Oximetry 97 94 98 Oxygen Delivery Method Room Air Oxygen Flow Rate 0 Narrative Exam Narrative: Middle-aged female who looks older than stated age in no obvious distress lying in her hospital bed with obvious cushingoid changes in her face, pale HEENT-normocephalic, ecchymosis to the right zygomatic arch Lungs-good breath sounds without wheezes Heart-regular rate and rhythm no murmur Abdomen-positive bowel tones soft, non-tender, obesity limits exam, no noted hepatosplenomegaly no masses palpable Extremities-2+ edema along both shins, warm, SCDs in place Neuro-patient moves all 4 extremities. Gait not tested. Gross sensation and movement normal Objective Labs Result Diagrams: 01/27/19 05:58 01/29/19 06:05 Labs: Laboratory Results - last 24 hr 01/29/19 06:05 Sodium 136 L Potassium 3.5 Chloride 105 Carbon Dioxide 24 BUN 8 Creatinine 0.60 Estimated GFR > 60.0 BUN/Creatinine Ratio 13.3 Glucose 216 H Calcium 8.9 Magnesium 1.2 L Total Bilirubin 0.4 AST 81 H ALT 100 H Alkaline Phosphatase 177 H Total Protein 5.5 L Albumin 2.9 L Globulin 2.6 Albumin/Globulin Ratio 1.1 Lipase 872 H Assessment & Plan Assessment and plan (1) Acute UTI: Current visit: No Status: Acute (2) Acute kidney injury: Current visit: Yes Status: Acute (3) Diarrhea: Current visit: Yes Status: Acute (4) Acute dehydration: Current visit: Yes Status: Acute (5) Acute pancreatitis: Current visit: Yes Status: Acute (6) Diabetes mellitus type 2, insulin dependent: Current visit: No Status: Chronic Assessment & Plan narrative: Acute renal failure from dehydration: Resolved. Patient tolerating regular diet. Pancreatitis vs colitis: Question acute vs chronic, lipase elevated, question whether this is a medication side effect. Her lipase has been elevated since earlier this year. Will stop glipizide. Clinically improved, tolerating regular diet. UTI: Last dose levofloxacin today. Diabetes: Had Lantus home dose of 60 units last night will give home dose of 70 units this morning. Will stop her coverage since she doesn't usually get this at [facility]. Stop glipizide. Will not restart her metformin, this may be contributing to her elevated lactate. Continue to monitor sugars. Dependent lower extremity edema. Has been improved here with SCD's but she has been mostly supine. We had held her furosemide. Blood pressure slightly elevated today so will restart furosemide with potassium. Hypomagnesium. Will give her 2g today. Seizure disorder: Continue home meds for seizure disorder. Intertrigo. continue with nystatin. Stage I pressure ulcer to buttocks, present on admission: Barrier cream and positioning per nursing. Code status: DNR DVT prophylaxis: christin Had planned discharge today to [place] however care management told me that [facility] would accept her, and then that we would need to wait until tomorrow to DC to [facility]. In the end the plan is still to discharge to [facility] tomorrow. Time Spent With Patient Time with patient: Greater than 35 minutes
[2019-01-29] MEDS: FUROSEMIDE 40 MG TABLET PO (13:13)
--- NOTE | 2019-01-29 16:17 | CM.DPNOTE ---
DCP Cont: Spoke w/Dr Yun this morning, she was hopeful pt could DC to [facility] but okay w/ DC to [facility]. According to MERRY Castro's notes to this CAD DESIGNER DRAFTER, pt's mom Mackenzie also hopeful she could spend time at [facility] and awaiting an update about this. Spoke w/Kalli and Lyn at [facility] today and pt was accepted for DC tomorrow, updated Dr Yun. Lyn then alerted this CAD DESIGNER DRAFTER that pt did not want to DC to [facility] and wanted to go home today, back to [facility]. Placed call to Violet at [facility] to ask if this was feasible and she thought it was but needed to schedule their van for p/u. This CAD DESIGNER DRAFTER LM for Dr Yun, did not hear back. Updated MANNY Biggs re: above and explained pt is expected to DC back to [facility] Saturday since plans changed and no DC order from Dr Yun. Gillian Goldberg, CAD DESIGNER DRAFTER
[2019-01-29] MEDS: FOLIC ACID 0.4 MG TABLET PO (17:07)
--- NOTE | 2019-01-29 18:25 | PC.NURSE ---
Addendum entered by Dian Madera R.N. 01/29/19 22:43: disregard last amend note, wrong patient. Addendum entered by Dian Madera R.N. 01/29/19 22:41: Pt refused to wear SCD's, informed of risks of DVT. Pt also reportsed to this fiction writer, after BP taken tonight at beginning of shift, not to be woken up for VS until morning shift. Original Note: Pt resting in bed, A/O x4, reports comfortable. Insulin novolog has been removed from 1630 scheduled medications. CBG-257 @ 1630. LAC SL. 98%RA, LS clear. Inc B/B brief. Multiple bruises to extremities including right cheek, from falling out of WC at [facility], also stage-1PU to coccyx, barrrier cream. Pt is frida lift only. Bed alarm on.
[2019-01-29] MEDS: levETIRAcetam 250 MG TABLET 750 MG PO (21:18)
[2019-01-29] MEDS: INSULIN GLARGINE 100 UNIT/ML 3ML PEN 60 UNIT SUBCUT (21:19)
[2019-01-30 03:00] VITALS: BP 128/71; PULSE 66; RESP 18; TEMP 36.4; O2SAT 98
[2019-01-30 06:13] LABS: Add Manual Diff / Slide Review NO; Basophils Absolute Auto 100 /uL (0-100); Basophils Percent Auto 0.8 % (0-2); Eosinophils Absolute Auto 0 /uL (0-450); Eosinophils Percent Auto 0.5 % (2-4); Hematocrit 35.8 % (36-46); Hemoglobin 12.2 g/dL (12.0-16.0); Lymphocytes Absolute Auto 1500 /uL (1100-4500); Lymphocytes Percent Auto 18.3 % (25-40); Mean Corpuscular HGB Conc 34.1 % (30-36); Mean Corpuscular Volume 99.9 fL (80-100); Monocytes Absolute Auto 800 /uL (0-900); Monocytes Percent Auto 9.6 % (3-14); Neutrophils Absolute Auto 5800 /uL (1500-7000); Neutrophils Percent Auto 70.8 % (50-75); Platelet Count 214 X10^3/uL (150-400); Red Blood Cell Count 3.58 X10^6/uL (4.0-5.2); Red Cell Distribution Width 14.7 % (11.6-14.8); White Blood Cell Count 8.2 X10^3/uL (4.5-11.0)
[2019-01-30 06:15] LABS: BUN Creatinine Ratio 18.3 (6-22); Blood Urea Nitrogen 11 mg/dL (7-17); Calcium 8.9 mg/dL (8.4-10.2); Carbon Dioxide 26 mmol/L (22-32); Chloride 102 mmol/L (98-107); Estimated Glomerular Filt Rate > 60.0 mL/min (>60); Glucose 182 mg/dL (70-100); HEMOLYSIS < 15 (0-50); Lipase 734 U/L (23-300); Magnesium 1.4 mg/dL (1.6-2.3); Potassium 3.3 mmol/L (3.4-5.1); Sodium 136 mmol/L (137-145)
[2019-01-30 07:00] VITALS: BP 124/72; PULSE 67; RESP 14; TEMP 36.3; O2SAT 98
[2019-01-30] MEDS: MAGNESIUM SULFATE 4 GM/100 ML PIGGYBACK IV (07:35)
[2019-01-30 08:06] VITALS: O2SAT 94
[2019-01-30] MEDS: INSULIN GLARGINE 100 UNIT/ML 3ML PEN 75 UNIT SUBCUT (09:13)
[2019-01-30] MEDS: CITALOPRAM 20 MG TABLET PO (09:16)
[2019-01-30] MEDS: ASPIRIN EC 81 MG TABLET PO (09:16)
[2019-01-30] MEDS: ENOXAPARIN 40 MG/0.4 ML SYRINGE SUBCUT (09:16)
[2019-01-30] MEDS: PANTOPRAZOLE 40 MG VIAL IV (09:16)
[2019-01-30] MEDS: FUROSEMIDE 40 MG TABLET PO (09:17)
[2019-01-30] MEDS: dexAMETHasone 1 MG TABLET 2 MG PO (09:17)
[2019-01-30] MEDS: levETIRAcetam 250 MG TABLET 500 MG PO (09:17)
[2019-01-30] MEDS: SODIUM CHLORIDE 0.9% FLUSH 10 ML IV (09:17)
[2019-01-30] MEDS: MIDODRINE HCL 5 MG TABLET PO (09:17)
--- NOTE | 2019-01-30 13:56 | CM.DPC ---
DCP Cont: Faxed signed med list to [facility], Attn: Violet at fax # [phone]. Fax confirmation scanned in. * Informed Violet the discharge summary would follow later. Ines Mcneil, [facility] HospitalFront Desk Supervisor
--- NOTE | 2019-01-30 14:07 | PC.NURSE ---
Day shift: Pt left unit to [facility] at this time. Jarred lift to was painful for Pt but successful. This content writer requested BLS transport but she didn't meet the criteria. Paperwork is in SNF packet. Pt has all personal belonging. has signed med list and this is in the packet.
--- NOTE | 2019-01-30 14:52 | CM.DPNOTE ---
DC Note: DC order in place this morning; DC back home to [facility] per pt's request. Signed med list completed. Ines, Lab Tech, assisted in coordination of this DC. Violet at [facility] was updated on this DC and [facility]'s w/c van was scheduled to p/u at 1330. Ines faxed signed med list, DC Summary has not been completed. P: DC back to [facility] via w/c today. NISSA
--- NOTE | 2019-02-02 08:05 | P.DS_ITS ---
History of Present Illness History of Present Illness Chief complaint: Abd. Pain Narrative: Patient is a 58 yo female with moribd obesity, diabetes, h/o oligodenroglioma, seizure disorder, chronic diarrhea resident of [facility]. She was brought in by EMS obtunded with dry mucus membranes and tenting of her skin. She had been vomiting and having diarrhea. She is incontinent at baseline and had foul smelling stool and urine on her. She received a liter of fluid and potassium in the ED and improved. When I see her she is answering questions but is a poor historian at baseline. She tells me her abominal pain has improved. She has a headache but tells me she always has a headache. No chest pain or shortness of breath. She tells me she's in [facility] and doesn't know what day it is. She has bruising on her right zygoma which she says happened when she fell about 4 months ago and has never improved. She was just discharged on 01/16/2019 for admission for urinary tract infection and abdominal pain. New medications were tmp/smx to treat her UTI and hydochlorithiazide to help with her lower extremity edema. Her potassium dose was increased. She spends a considerable amount of time sitting up in a wheelchair with her legs down. She is known to have chronic diarrhea with incontinence. She does have chronic elevated lactate and her lactate today is the same as previous admission. Discharge Providers Provider Date of admission: 01/24/19 15:37 Discharge Date: 01/30/19 Primary care physician: Naveen Vaughn MD Consults: 01/25/19 12:30 Consult to Occupational Therapy Evaluate & Treat Comment: Physician Instructions: Evaluate and treat Consult to Physical Therapy Evaluate & Treat Comment: Physician Instructions: Evaluate and Treat 01/25/19 22:05 Consult to Musical Instrument Maker Routine Comment: new placement for living with higher level care. 01/27/19 08:17 Consult to Physical Therapy Evaluate & Treat Comment: discharge planning Physician Instructions: Evaluate and Treat Discharge provider: Janice Yun DO Summary Hospital Course Discharge Diagnosis: Acute renal failure Pancreatitis, likely chronic Colitis Urinary tract infection Diabetes mellitus type 2 Dependent lower extremity edema Hypokalemia Hypomagnesium Seizure disorder Intertrigo Stage I pressure ulcer to buttocks, present on admission Oligodendroglioma, stable Hospital Course: Acute renal failure from dehydration: Resolved. Patient responded well to fluid resuscitation. Pancreatitis, acute vs chronic. Lipase has been elevated since August of this ye ar, drops when patient is NPO. Tolerating advanced diet without abdominal pain. Will stop her glipizide. Colitis. Her abdominal pain and diarrhea improved. It took 2 days to get stool sample to test which was negative for infection and blood. UTI: Treated. Last dose levofloxacin today. Diabetes: Sliding scale while NPO. Resumed normal dose of lantus prior to discharge. Will stop her glipizide and metformin. May be contributing to her diarrhea. Also metformin may be elevating her lactate. Will continue to monitor. Dependent lower extremity edema. Has been improved here with SCD's but she has been mostly supine. We had held her furosemide. Edema worsened without furosemide and blood pressure increase so furosemide was restarted. Hypokalemia and Hypomagnesium. Replaced. Seizure disorder: Continue home meds for seizure disorder. Intertrigo. continue with nystatin. Stage I pressure ulcer to buttocks, present on admission: Barrier cream and positioning per nursing. Code status: DNR DVT prophylaxis: [email or web address] Had planned discharge to [facility] management but was told me that [facility] would accept her. Patient declined discharge to [facility] so discharge was to [facility]. Status at Discharge Cognitive/behavioral status at discharge: at baseline, confused Time Spent with Patient Time spent: Greater than 30 minutes Exam Vital Signs (past 8 hours): Oxygen Delivery Method Room Air Oxygen Flow Rate 0 Narrative Exam Narrative: Middle-aged female who looks older than stated age in no obvious distress lying in her hospital bed with obvious cushingoid changes in her face, pale HEENT-normocephalic, dark ring circling the right zygomatic arch Lungs-good breath sounds without wheezes Heart-regular rate and rhythm no murmur Abdomen-positive bowel tones soft, non-tender, obesity limits exam, no noted hepatosplenomegaly no masses palpable Extremities-2+ edema along both shins, warm, SCDs in place, bruising to upper arms Neuro-patient moves all 4 extremities. Gait not tested. Gross sensation and movement normal Objective Labs Result Diagrams: 01/30/19 05:47 01/30/19 05:47 Discharge Plan Discharge Plan Patient Disposition: Assisted Living Transfer to: [facility] Consult as needed: Dental, Hearing, Mental health, Podiatry and Vision Discharge Med Rec/Prescriptions Prescriptions: Continued cholecalciferol (vitamin D3) 1,000 unit capsule 1,000 unit PO DAILY Qty: 90 RF: 3 ondansetron HCl 4 mg tablet 4 mg PO Q6H PRN (Reason: Nausea And Vomiting) Qty: 30 RF: 0 oxycodone-acetaminophen 5-325 mg tablet 1 tab PO BEDTIME PRN (Reason: moderate pain/discomfort) Qty: 30 RF: 0 folic acid 400 mcg tablet 0.4 mg PO QPM Qty: 90 RF: 1 loperamide [Imodium A-D] 2 mg capsule 2 mg PO Q2-4H PRN (Reason: loose stool) Qty: 60 RF: 0 ibuprofen 400 mg tablet 400 mg PO BID Qty: 60 RF: 3 (DME) Easy Touch Pen Needle 30 gauge x 5/16 needle See Dose Instructions .ROUTE .MEDSUPPLY Qty: 100 RF: 1 citalopram 20 mg tablet 20 mg PO DAILY Qty: 90 RF: 1 levetiracetam 250 mg tablet 500 mg PO DAILY Qty: 30 RF: 3 levetiracetam 250 mg tablet 750 mg PO BEDTIME Qty: 30 RF: 3 meclizine 25 mg tablet 25 mg PO Q6H PRN (Reason: dizziness or vertigo) Qty: 90 RF: 3 acetaminophen 325 mg tablet 650 mg PO Q4H PRN (Reason: Fever Or Pain) Qty: 90 RF: 0 melatonin 3 mg tablet 6 mg PO BEDTIME Qty: 180 RF: 0 simvastatin 20 mg tablet 20 mg PO QPM Qty: 90 RF: 1 omeprazole 20 mg capsule,delayed release(DR/EC) 20 mg PO BID Qty: 180 RF: 1 midodrine 5 mg tablet See Rx Instructions .ROUTE .COMPLEX Qty: 90 RF: 0 dexamethasone 2 mg tablet 2 mg PO BID Qty: 90 RF: 0 aspirin 81 mg Tablet,Delayed Release (Dr/Ec) 81 mg PO DAILY RF: 0 furosemide 40 mg Tablet 40 mg PO DAILY Qty: 0 RF: 0 potassium chloride 20 mEq tablet,ER particles/crystals 40 meq PO BID Qty: 180 RF: 3 Basaglar KwikPen U-100 Insulin 100 unit/mL (3 mL) insulin pen 60 units subcut QPM RF: 0 Basaglar KwikPen U-100 Insulin 100 unit/mL (3 mL) insulin pen 70 units subcut DAILY RF: 0 hydrocortisone acetate 1 % Cream 1 applic TOPICAL Q8H PRN (Reason: Rash) RF: 0 nystatin 100,000 unit/gram powder 1 applic topical PRN PRN (Reason: Rash) RF: 0 omega 4-icl-ble-fish oil [Fish Oil] 1,000 mg (120 mg-180 mg) Capsule 1 cap PO DAILY RF: 0 Robitussin Dm 5 ml PO Q4H PRN (Reason: Cough) RF: 0 Changed magnesium oxide 400 mg (241.3 mg magnesium) tablet 400 mg PO BID Qty: 60 RF: 5 Discontinued tolterodine 4 mg capsule,extended release 24hr 4 mg PO DAILY Qty: 90 RF: 3 metformin 1,000 mg tablet 1,000 mg PO BID Qty: 90 RF: 3 glipizide 5 mg tablet 5 mg PO BID RF: 0 hydrochlorothiazide 12.5 mg tablet 25 mg PO DAILY Qty: 90 RF: 3 Follow up/Referrals: Naveen Vaughn MD [Primary Care Provider] - 1 Week Discharge Orders: Discharge (Order); Ordered 01/30/19 Ordered By: Janice Yun Discharge Health Status Multidrug resistant organism: No MDRO Precautions: [place] Provider Discharge Instructions Diet: Carb-consistent/Diabetic Liquid consistency: Normal/Thin Food texture: Regular Visit Report/Discharge Packet Instructions: DI for Urinary Tract Infection (UTI) Discharge Data Primary Care Provider: Naveen Vaughn Discharges patient from system. Discharge Date/Time: 01/30/19 14:10
--- NOTE | 2019-02-09 12:07 | CM.DPC ---
DCP Cont: Faxed discharge summary to [facility], Attn: Nyla at fax # [phone]. Fax confirmation scanned in. Ines Mcneil, [facility] Borg[facility] HospitalForestry Technical Officer
== END 2019-02-07 12:13 | DRG 682 ==
LOC: ED 15:16 → AC 15:38
PROVIDERS: Family Medicine; Admitting Provider Family Medicine; Emergency Provider Emergency Medicine; PCP Internal Medicine; Visit Provider Family Medicine
DX: N17.9 Acute kidney failure, unspecified (principal); K85.90 Acute pancreatitis without necrosis or infection, unspecified; Z68.42 Body mass index [BMI] 45.0-49.9, adult; N39.0 Urinary tract infection, site not specified; C71.9 Malignant neoplasm of brain, unspecified; E86.0 Dehydration; E87.6 Hypokalemia; E66.01 Morbid (severe) obesity due to excess calories; L89.301 Pressure ulcer of unspecified buttock, stage 1; E83.42 Hypomagnesemia; B96.89 Other specified bacterial agents as the cause of diseases classified elsewhere; G40.909 Epilepsy, unspecified, not intractable, without status epilepticus; E11.9 Type 2 diabetes mellitus without complications; K52.89 Other specified noninfective gastroenteritis and colitis; K62.89 Other specified diseases of anus and rectum; K52.9 Noninfective gastroenteritis and colitis, unspecified; R62.7 Adult failure to thrive
CPT/HCPCS: 36415; 36591; 43235; 45380; 74177; 80048; 80053; 80061; 81001; 82140; 82962; 83036; 83605; 83615; 83690; 83735; 85025; 85610; 86850; 86900; 86901; 87077; 87086; 87186; 87507; 94760; 94762; 96365; 96375; 97162; 97165; 99223; 99232; 99233; 99238; 99283; 99285; A9270; C9113; J0330; J1100; J1650; J1940; J1956; J2405; J2704; J3010; J3475; J3480; Q9967

== ENCOUNTER 2019-01-30 20:22 | Inpatient (IN) | payer MEDICARE, MEDICAID, SELFPAY ==
[2019-01-30 20:30] VITALS: BP 111/57; PULSE 78; RESP 15; TEMP 36.4; O2SAT 100; BMI 48.7
--- NOTE | 2019-01-30 20:30 | ED_ITS ---
HPI - Abdominal Pain General Chief Complaint: Abdominal Pain Stated Complaint: ABD pain Time Seen by Provider: 01/30/19 20:24 Source: patient and EMS Mode of arrival: EMS Limitations: altered mental status History of Present Illness HPI narrative: 58-year-old female former smoker with history of head injury returns to the emergency department after having just been discharged earlier today. She lives at a local [facility] facility and had been admitted for acute kidney injury, slightly elevated lactate and pancreatitis. She was discharged earlier today after her last round of IV antibiotics. She was to lerating oral hydration and doing quite well. During her initial visit on January [address] scan noting a nonspecific colitis, with no mention of diverticulosis. She has some generalized abdominal pain perhaps worse in the right upper quadrant. Of she has had elevated lipase for much of the year and this is thought due to some medications which have recently been changed. Soon after arriving at the facility she started developing severe epigastric pain with radiation to the back as well as multiple loose stools and the presence of blood with clot. She has had no fever chills and is not dizzy nor weak or lightheaded. She does not take blood thinners. Related Data Home Medications Medication Instructions Recorded Confirmed aspirin 81 mg PO DAILY 12/23/17 01/24/19 Robitussin Dm 5 ml PO Q4H PRN 12/09/18 01/24/19 hydrocortisone acetate 1 applic TOPICAL Q8H PRN 12/09/18 01/24/19 insulin glargine 60 units SUBCUT QPM 12/09/18 01/24/19 insulin glargine 70 units SUBCUT DAILY 12/09/18 01/24/19 nystatin 1 applic TOPICAL PRN PRN 12/09/18 01/24/19 omega 4-edt-tqn-fish oil [Fish Oil] 1 cap PO DAILY 12/09/18 01/24/19 Previous Rx's Medication Instructions Recorded cholecalciferol (vitamin D3) 1,000 1,000 unit PO DAILY #90 cap 03/04/18 unit capsule ondansetron HCl 4 mg tablet 4 mg PO Q6H PRN #30 tab 05/29/18 dexamethasone 2 mg tablet 2 mg PO BID #90 tab 07/04/18 oxycodone-acetaminophen 5 mg-325 1 tab PO BEDTIME PRN #30 tab 07/14/18 mg tablet folic acid 400 mcg tablet 0.4 mg PO QPM #90 tab 10/06/18 loperamide 2 mg capsule 2 mg PO Q2-4H PRN #60 cap 10/17/18 ibuprofen 400 mg tablet 400 mg PO BID #60 tab 10/24/18 pen needle, diabetic 30 gauge x #100 each 11/20/1809/18 citalopram 20 mg tablet 20 mg PO DAILY #90 tab 12/09/18 levetiracetam 500 mg PO DAILY #30 tab 12/11/18 levetiracetam 750 mg PO BEDTIME #30 tab 12/11/18 acetaminophen 325 mg tablet 650 mg PO Q4H PRN #90 tab 12/12/18 meclizine 25 mg tablet 25 mg PO Q6H PRN #90 tab 12/12/18 melatonin 3 mg tablet 6 mg PO BEDTIME #180 tab 12/15/18 simvastatin 20 mg tablet 20 mg PO QPM #90 tab 12/18/18 omeprazole 20 mg capsule,delayed 20 mg PO BID #180 cap 12/30/18 release furosemide 40 mg PO DAILY #0 tab 01/16/19 potassium chloride 40 meq PO BID #180 tab 01/16/19 midodrine 5 mg tablet See Rx Instructions .ROUTE 01/20/19 .COMPLEX #90 tab magnesium oxide 400 mg PO BID #60 tab 01/30/19 Allergies Allergy/AdvReac Type Severity Reaction Status Date / Time adhesive tape Allergy Unknown Verified 01/14/19 20:39 Penicillins Allergy Unknown Verified 01/14/19 20:39 silicone Allergy Unknown Verified 01/14/19 20:39 zonisamide Allergy Unknown Verified 01/14/19 20:39 escitalopram AdvReac Unknown Verified 01/14/19 20:39 lamotrigine AdvReac Unknown Verified 01/14/19 20:39 Review of Systems Constitutional Constitutional: Denies chills, Denies fatigue, Denies fever(s), Denies frequent falls, Denies lethargy and Denies weakness Eyes Eyes: Denies change in vision, Denies eye discharge, Denies irritation and Denies loss of vision ENT Ears, Nose, Mouth, and Throat: Denies change in voice, Denies dizziness, Denies neck pain, Denies sore throat and Denies throat swelling Cardiovascular Cardiovascular: Denies chest pain, Denies irregular heart rhythm, Denies lightheadedness, Denies palpitations, Denies dyspnea, Denies dyspnea on exertion and Denies orthopnea Respiratory Respiratory: Denies cough, Denies dyspnea, Denies dyspnea on exertion and Denies wheezing Gastrointestinal Gastrointestinal: Reports abdominal pain, Denies change in bowel habits, Reports diarrhea, Denies nausea and Denies vomiting Genitourinary Genitourinary: Denies hematuria, Denies flank pain, Denies urinary incontinence and Denies urinary urgency Musculoskeletal Musculoskeletal: Denies back pain, Denies muscle weakness, Denies neck pain, Denies numbness and Denies tingling Integumentary/Breasts Skin/Breast: Denies pruritus, Denies erythema, Denies rash and Denies wounds Neurologic Neurologic: Denies behavioral changes, Denies confusion, Denies dizziness, Denies frequent falls, Denies loss of vision, Denies numbness, Denies tingling and Denies weakness Psychiatric Psychiatric: Denies anxiety, Denies behavioral changes, Denies confusion, Denies depression, Denies homicidal ideation and Denies suicidal ideation Endocrine Endocrine: Denies fatigue, Denies flushing and Denies palpitations Hematologic/Lymphatic Hematologic/Lymphatic: Denies easy bruising Allergic/Immunologic Allergic/Immunologic: Denies urticaria, Denies throat swelling and Denies wheezing [facility] Medical History Anxiety (Chronic) Chicken pox (Resolved ~1966) Cognitive dysfunction (Chronic) Depression (Chronic) Diabetes mellitus type 2, insulin dependent (Chronic ~2007) Fecal incontinence (Chronic) Fractures (Resolved ~2017) GERD without esophagitis (Chronic) Hearing loss (Chronic ~2016) High serum lactate (Chronic) Measles (Resolved ~1963) Oligodendroglioma (Chronic ~2011) Orthostatic hypotension (Chronic) Other and unspecified hyperlipidemia (Chronic) Ovarian cyst (Chronic ~1983) Seizure disorder (Chronic) Urinary incontinence (Chronic ~2015) Vision disorder (Chronic) Surgical History Anesthesia (Resolved) H/O pelvic surgery (Inactive ~2016) History of cholecystectomy (Resolved ~1987) History of hysterectomy (Resolved ~1988) Family History Father Cancer Diabetes mellitus Hypertension Sister Hypertension Sister Cancer Grandfather Heart disease Grandmother Heart disease Social History marital status: number of children: 3 household members: caregiver and other lives independently: Yes caregiver/support person: Yes housing: assisted living facility pets and animals: No education level: high school occupational status: disabled Previous occupational history: [employer] duncan/adventism: None leisure activities: games (Bingo) and other (Movies, TV) Smoking Status: Former smoker Tobacco: How many years used: 2 Smokeless tobacco user: other (Cigarettes) quit status: quit date established (2010) second hand exposure: No alcohol intake: never substance use type: does not use Family History Father Cancer Diabetes mellitus Hypertension Sister Hypertension Sister Cancer Grandfather Heart disease Grandmother Heart disease Social History marital status: number of children: 3 household members: caregiver and other lives independently: Yes caregiver/support person: Yes housing: assisted living facility pets and animals: No education level: high school occupational status: disabled Previous occupational history: [employer] duncan/adventism: None leisure activities: games (Bingo) and other (Movies, TV) Smoking Status: Former smoker Tobacco: How many years used: 2 Smokeless tobacco user: other (Cigarettes) quit status: quit date established (2010) second hand exposure: No alcohol intake: never substance use type: does not use Exam Narrative Exam Narrative: GENERAL: [58] year old patient appears stated age. Well- nourished, well-developed patient, in mild distress. HEAD: Atraumatic. Normocephalic. EYES: Pupils equal round and reactive. Extraocular motions intact. No scleral icterus. No injection or drainage. ENT: Nose without bleeding, purulent drainage. Throat without erythema, tonsillar hypertrophy or exudate. Airway patent. NECK: Trachea midline. Non tender CARDIOVASCULAR: Regular rate and rhythm without murmurs, gallops, or rubs. RESPIRATORY: Clear to auscultation. Breath sounds equal bilaterally. No wheezes, rales, or rhonchi. GASTROINTESTINAL: Abdomen soft, severely tender in the epigastrium, worse than her presentation a few days ago, nondistended. RECTAL: heme +, soft EXTREMITIES: No edema or joint tenderness. BACK: Nontender without deformity or crepitance. No flank tenderness.. SKIN: No rash or erythema of visible areas Initial Vital Signs Initial Vital Signs: Vital Signs Temperature 97.6 F 01/30/19 20:30 Pulse Rate 78 01/30/19 20:30 Respiratory Rate 15 01/30/19 20:30 Blood Pressure 111/57 L 01/30/19 20:30 Pulse Oximetry 100 01/30/19 20:30 Course Orders Ordered: ED Orders 01/30/19 21:00 Complete Blood Count AUTO DIFF Stat Comprehensive Metabolic Panel Stat Lipase Stat Prothrombin Time INR Stat 01/30/19 21:30 Type and Screen Stat Dextrose (D50w) 25 gm IV PRN PRN PRN Reason: Hypoglycemia Sodium Chloride (Normal Saline 0.9%) 1,000 mls @ 150 mls/hr IV CONT VERONICA Last Admin: 01/30/19 21:19 Dose: 150 mls/hr Documented by: [facility] Insulin Aspart (Novolog Flexpen) 0 unit SUBCUT ACHS VERONICA; Protocol Discontinued Medications Pantoprazole Sodium (Protonix) 40 mg IV NOW ONE Stop: 01/30/19 20:32 Last Admin: 01/30/19 21:19 Dose: 40 mg Documented by: ARRINGTO Consultations Consultation #1: Called to Dr. Dias who was happy to accept this patient on his service Vital Signs Vital signs: Vital Signs - 8 hr 01/30/19 23:08 Pulse Rate 77 Respiratory Rate 20 Blood Pressure [Right Arm] 106/66 Pulse Oximetry 98 MDM - Abdominal Pain Lab Data Result diagrams: 01/30/19 21:00 01/30/19 21:00 Labs: Lab Results 01/30/19 01/30/19 01/30/19 Range/Units 21:00 21:00 21:00 WBC 11.0 (4.5-11.0) X10^3/uL RBC 3.74 L (4.0-5.2) X10^6/uL Hgb 12.5 (12.0-16.0) g/dL Hct 37.4 (36-46) % MCV 100.0 (80-100) fL MCH 33.4 (26-34) PG MCHC 33.4 (30-36) % RDW 15.0 H (11.6-14.8) % Plt Count 247 (150-400) X10^3/uL Neut % (Auto) 76.9 H (50-75) % Lymph % (Auto) 14.0 L (25-40) % Kings % (Auto) 8.0 (3-14) % Eos % (Auto) 0.2 L (2-4) % Baso % (Auto) 0.9 (0-2) % Neut # (Auto) 8500 H (9448-8903) /uL Lymph # (Auto) 1500 (7297-8138) /uL Kings # (Auto) 900 (0-900) /uL Eos # (Auto) 0 (0-450) /uL Baso # (Auto) 100 (0-100) /uL PT 11.0 (10.1-12.7) SECONDS INR 1.0 (0.9-1.3) Sodium 135 L (137-145) mmol/L Potassium 3.4 (3.4-5.1) mmol/L Chloride 98 (98-107) mmol/L Carbon Dioxide 26 (22-32) mmol/L BUN 12 (7-17) mg/dL Creatinine 0.70 (0.52-1.04) mg/dL Estimated GFR > 60.0 (>60) mL/min BUN/Creatinine Ratio 17.1 (6-22) Glucose 252 H (70-100) mg/dL Calcium 9.3 (8.4-10.2) mg/dL Total Bilirubin 0.6 (0.2-1.3) mg/dL AST 165 H (14-36) IU/L ALT 118 H (9-52) IU/L Alkaline Phosphatase 219 H (38-126) U/L Total Protein 6.3 (6.3-8.2) g/dL Albumin 3.6 (3.5-5.0) g/dL Globulin 2.7 (1.7-4.1) g/dL Albumin/Globulin Ratio 1.3 (1.0-2.8) Lipase 1038 H (23-300) U/L Blood Type Antibody Screen 01/30/19 Range/Units 21:30 WBC (4.5-11.0) X10^3/uL RBC (4.0-5.2) X10^6/uL Hgb (12.0-16.0) g/dL Hct (36-46) % MCV (80-100) fL MCH (26-34) PG MCHC (30-36) % RDW (11.6-14.8) % Plt Count (150-400) X10^3/uL Neut % (Auto) (50-75) % Lymph % (Auto) (25-40) % Kings % (Auto) (3-14) % Eos % (Auto) (2-4) % Baso % (Auto) (0-2) % Neut # (Auto) (4769-2800) /uL Lymph # (Auto) (2375-0051) /uL Kings # (Auto) (0-900) /uL Eos # (Auto) (0-450) /uL Baso # (Auto) (0-100) /uL PT (10.1-12.7) SECONDS INR (0.9-1.3) Sodium (137-145) mmol/L Potassium (3.4-5.1) mmol/L Chloride (98-107) mmol/L Carbon Dioxide (22-32) mmol/L BUN (7-17) mg/dL Creatinine (0.52-1.04) mg/dL Estimated GFR (>60) mL/min BUN/Creatinine Ratio (6-22) Glucose (70-100) mg/dL Calcium (8.4-10.2) mg/dL Total Bilirubin (0.2-1.3) mg/dL AST (14-36) IU/L ALT (9-52) IU/L Alkaline Phosphatase (38-126) U/L Total Protein (6.3-8.2) g/dL Albumin (3.5-5.0) g/dL Globulin (1.7-4.1) g/dL Albumin/Globulin Ratio (1.0-2.8) Lipase (23-300) U/L Blood Type O Positive Antibody Screen Negative MDM Narrative Medical decision making narrative: Patient with recent hospitalization returns feeling worse even then during the time for admission. Her epigastric pain is severe and lipase is over a 1000. She requires hospitalization for IV hydration, pain control and further evaluation of her rectal bleeding Discharge Plan Departure Patient Disposition: Admitted As Inpatient Clinical Impression: Acute pancreatitis Qualifiers: Pancreatitis type: other Discharge Date/Time: 01/31/19 00:35 Referrals: Naveen Vaughn MD [Primary Care Provider] - Admit Date/Time: 01/31/19 00:05 Admit Provider: Robson Dias
[2019-01-30 21:12] VITALS: BP 114/77; PULSE 81; RESP 16; O2SAT 99
[2019-01-30] MEDS: SODIUM CHLORIDE 0.9% 1,000 ML 150 ML IV (21:19)
[2019-01-30] MEDS: PANTOPRAZOLE 40 MG VIAL IV (21:19)
[2019-01-30 21:21] LABS: Add Manual Diff / Slide Review NO; Basophils Absolute Auto 100 /uL (0-100); Basophils Percent Auto 0.9 % (0-2); Eosinophils Absolute Auto 0 /uL (0-450); Eosinophils Percent Auto 0.2 % (2-4); Hematocrit 37.4 % (36-46); Hemoglobin 12.5 g/dL (12.0-16.0); Lymphocytes Absolute Auto 1500 /uL (1100-4500); Mean Corpuscular HGB Conc 33.4 % (30-36); Mean Corpuscular Hemoglobin 33.4 PG (26-34); Monocytes Absolute Auto 900 /uL (0-900); Neutrophils Absolute Auto 8500 /uL (1500-7000); Neutrophils Percent Auto 76.9 % (50-75); Platelet Count 247 X10^3/uL (150-400); Red Blood Cell Count 3.74 X10^6/uL (4.0-5.2)
[2019-01-30 21:33] LABS: Alanine Aminotransferase 118 IU/L (9-52); Albumin 3.6 g/dL (3.5-5.0); Albumin Globulin Ratio 1.3 (1.0-2.8); Alkaline Phosphatase 219 U/L (38-126); Aspartate Aminotransferase 165 IU/L (14-36); BUN Creatinine Ratio 17.1 (6-22); Bilirubin Total 0.6 mg/dL (0.2-1.3); Blood Urea Nitrogen 12 mg/dL (7-17); Calcium 9.3 mg/dL (8.4-10.2); Carbon Dioxide 26 mmol/L (22-32); Chloride 98 mmol/L (98-107); Estimated Glomerular Filt Rate > 60.0 mL/min (>60); Globulin 2.7 g/dL (1.7-4.1); Glucose 252 mg/dL (70-100); HEMOLYSIS < 15 (0-50); Lipase 1038 U/L (23-300); Potassium 3.4 mmol/L (3.4-5.1); Sodium 135 mmol/L (137-145); Total Protein 6.3 g/dL (6.3-8.2)
[2019-01-30 23:08] VITALS: BP 106/66; PULSE 77; RESP 20; O2SAT 98
[2019-01-31] VITALS (8 sets, daily range): BP systolic 105–135; BP diastolic 54–73; PULSE 67–86; RESP 12–20; TEMP 35.7–37.2; O2SAT 93–100; BMI 48.7
--- NOTE | 2019-01-31 02:17 | PC.NURSE ---
Pt. admitted from ER for C/O abdominal pain & bloody stool. Inc of scant amount bloody loose stool. Pt. denies any abdominal pain when admitted to the floor. Instructed to call for any assistance, call light within reached. Will monitor & cont. with POC
[2019-01-31] MEDS: SODIUM CHLORIDE 0.9% 1,000 ML 150 ML IV ×3 (06:18→19:56)
--- NOTE | 2019-01-31 06:55 | PC.NURSE ---
2650 Pt's. mother called from [place], called & wants to talk to the MD that admit pt. Wants to get updated with pt's. condition & plan. Will report to day RN.
--- NOTE | 2019-01-31 10:27 | PM.HP.1 ---
History of Present Illness History of Present Illness Date Patient Seen: 01/31/19 Time Patient Seen: 10:27 Chief complaint: ABD pain Narrative: Abdominal pain. Patient minute the emergency room last night for abdominal pain. Patient recently was here on hospital for pancreatitis, dehydration, and urinary tract infection. Treated with Levaquin and discharged yesterday on her final dose of medication. Her pancreatitis symptoms had resolved. She currently lives at [facility]. She returned there yesterday afternoon and felt fine for several hours however she soon developed severe of midepigastric abdominal pain that progressed during the course of the day. The to the point of the worse than ever. Also has some nausea. Secondary she has a loose stools 1 of which was bloody. Because of the above 2 symptoms she was transferred on also emergency room where she is evaluated. In the emergency room she is found have a markedly elevated lipase additionally had a guaiac-positive stool. She was it readmitted for pancreatitis evaluation of her red rectal bleeding. Patient had a CT the abdomen and in the emergency room that showed questionable colitis and this is a tertiary diagnosis on upon admission. Patient History Medical History Anxiety (Chronic) Chicken pox (Resolved ~1966) Cognitive dysfunction (Chronic) Depression (Chronic) Diabetes mellitus type 2, insulin dependent (Chronic ~2007) Fecal incontinence (Chronic) Fractures (Resolved ~2017) GERD without esophagitis (Chronic) Hearing loss (Chronic ~2016) High serum lactate (Chronic) Measles (Resolved ~1963) Oligodendroglioma (Chronic ~2011) Orthostatic hypotension (Chronic) Other and unspecified hyperlipidemia (Chronic) Ovarian cyst (Chronic ~1983) Seizure disorder (Chronic) Urinary incontinence (Chronic ~2015) Vision disorder (Chronic) Surgical History Anesthesia (Resolved) H/O pelvic surgery (Inactive ~2016) History of cholecystectomy (Resolved ~1987) History of hysterectomy (Resolved ~1988) Family History Father Cancer Diabetes mellitus Hypertension Sister Hypertension Sister Cancer Grandfather Heart disease Grandmother Heart disease Social History marital status: number of children: 3 household members: caregiver and other lives independently: Yes caregiver/support person: Yes housing: assisted living facility pets and animals: No education level: high school occupational status: disabled Previous occupational history: [employer] in [place] duncan/gnosticist: None leisure activities: games (Bingo) and other (Movies, TV) Smoking Status: Former smoker Tobacco: How many years used: 2 Smokeless tobacco user: other (Cigarettes) quit status: quit date established (2010) second hand exposure: No alcohol intake: never substance use type: does not use Family & Social History Family History Father Cancer Diabetes mellitus Hypertension Sister Hypertension Sister Cancer Grandfather Heart disease Grandmother Heart disease Social History: household members caregiver,other Prior Living Arrangements Assisted Living lives independently Yes caregiver/support person Yes Safety & Behavioral: Feels Safe in Current Yes Environment Been Physically Hurt or No Threatened By a Person Suicidal Ideation Description None Suicide Plan Description No Plan Tobacco & Substance use: Smoking Status Former smoker alcohol intake never alcohol intake frequency holiday/special occasion Substance Use Type does not use Meds Home Medications and Allergies Home Medications Medication Instructions Recorded Confirmed Type aspirin 81 mg PO DAILY 12/23/17 01/31/19 History cholecalciferol (vitamin D3) 1,000 1,000 unit PO DAILY #90 cap 03/04/18 01/31/19 Rx unit capsule ondansetron HCl 4 mg tablet 4 mg PO Q6H PRN #30 tab 05/29/18 01/24/19 Rx dexamethasone 2 mg tablet 2 mg PO BID #90 tab 07/04/18 01/31/19 Rx oxycodone-acetaminophen 5 mg-325 1 tab PO BEDTIME PRN #30 tab 07/14/18 01/24/19 Rx mg tablet folic acid 400 mcg tablet 0.4 mg PO QPM #90 tab 10/06/18 01/31/19 Rx loperamide 2 mg capsule 2 mg PO Q2-4H PRN #60 cap 10/17/18 01/31/19 Rx ibuprofen 400 mg tablet 400 mg PO BID #60 tab 10/24/18 01/31/19 Rx pen needle, diabetic 30 gauge x #100 each 11/20/18 01/26/19 Rx 5/16 Robitussin Dm 5 ml PO Q4H PRN 12/09/18 01/24/19 History citalopram 20 mg tablet 20 mg PO DAILY #90 tab 12/09/18 01/31/19 Rx hydrocortisone acetate 1 applic TOPICAL Q8H PRN 12/09/18 01/31/19 History insulin glargine [Basaglar KwikPen 60 units SUBCUT QPM 12/09/18 01/31/19 History U-100 Insulin] insulin glargine [Basaglar KwikPen 70 units SUBCUT DAILY 12/09/18 01/31/19 History U-100 Insulin] nystatin 1 applic TOPICAL PRN PRN 12/09/18 01/31/19 History omega 0-iij-lvc-fish oil [Fish Oil] 1 cap PO DAILY 12/09/18 01/31/19 History levetiracetam 500 mg PO DAILY #30 tab 12/11/18 01/31/19 Rx levetiracetam 750 mg PO BEDTIME #30 tab 12/11/18 01/31/19 Rx acetaminophen 325 mg tablet 650 mg PO Q4H PRN #90 tab 12/12/18 01/31/19 Rx meclizine 25 mg tablet 25 mg PO Q6H PRN #90 tab 12/12/18 01/31/19 Rx melatonin 3 mg tablet 6 mg PO BEDTIME #180 tab 12/15/18 01/31/19 Rx simvastatin 20 mg tablet 20 mg PO QPM #90 tab 12/18/18 01/24/19 Rx omeprazole 20 mg capsule,delayed 20 mg PO BID #180 cap 12/30/18 01/24/19 Rx release furosemide 40 mg PO DAILY #0 tab 01/16/19 01/31/19 Rx potassium chloride 40 meq PO BID #180 tab 01/16/19 01/24/19 Rx midodrine 5 mg tablet See Rx Instructions .ROUTE 01/20/19 01/31/19 Rx .COMPLEX #90 tab magnesium oxide 400 mg PO BID #60 tab 01/30/19 01/31/19 Rx Allergies Allergy/AdvReac Type Severity Reaction Status Date / Time adhesive tape Allergy Unknown Verified 01/14/19 20:39 Penicillins Allergy Unknown Verified 01/14/19 20:39 silicone Allergy Unknown Verified 01/14/19 20:39 zonisamide Allergy Unknown Verified 01/14/19 20:39 escitalopram AdvReac Unknown Verified 01/14/19 20:39 lamotrigine AdvReac Unknown Verified 01/14/19 20:39 Review of Systems Review of Systems ROS Unobtainable: All systems reviewed & are unremarkable except as noted in HPI and below Exam Vital Signs (past 8 hours): - 01/31/19 05:32 01/31/19 08:15 Temperature 97.3 F L 97.6 F Pulse Rate 71 67 Respiratory Rate 16 15 Blood Pressure 105/60 113/60 Pulse Oximetry 99 99 Oxygen Delivery Method Room Air Oxygen Flow Rate 0 Narrative Exam Narrative: Gen.: [] Patient is examined in her hospital bed resting quietly appears in no distress. Morbidly obese. Skin: [Warm well perfused. No prominent lesions. Nonicteric]. HEENT: PERRL., [normal EOM, external ears canals TMs normal, nasal mucosa normal and midline septum, oropharynx without lesions.] Neck: [Trachea midline. Thyroid nontender and not enlarged. Carotids without bruits. No lymphadenopathy] Back: [No obvious deformity or tenderness]. Chest: [Clear to P&A. Symmetric]. CV: [RRR no murmur or gallop. No JVD]. Abdomen: [No masses bruits tenderness or visceromegaly]. Neuro: [Cranial nerves II through XII grossly intact. Sensory and motor exams intact. Gait normal.] Mental status: [Intact for screening] Extremities: [No cyanosis clubbing or edema] Musculoskeletal: [No gross deformities] Lymphatics: [Negative for lymphadenopathy, supraclavicular axillary or inguinal]. She has several bruises on her arms and legs. She does have 3+ edema of her feet she currently has compression device on caps. Her abdominal exam decreased bowel sounds she is markedly tender in the midepigastrium no rebound Objective Labs Result Diagrams: 01/30/19 21:00 01/30/19 21:00 Labs: Laboratory Results - last 24 hr 01/30/19 01/30/19 01/30/19 21:00 21:00 21:00 WBC 11.0 RBC 3.74 L Hgb 12.5 Hct 37.4 MCV 100.0 MCH 33.4 MCHC 33.4 RDW 15.0 H Plt Count 247 Neut % (Auto) 76.9 H Lymph % (Auto) 14.0 L Crane % (Auto) 8.0 Eos % (Auto) 0.2 L Baso % (Auto) 0.9 Neut # (Auto) 8500 H Lymph # (Auto) 1500 Crane # (Auto) 900 Eos # (Auto) 0 Baso # (Auto) 100 PT 11.0 INR 1.0 Sodium 135 L Potassium 3.4 Chloride 98 Carbon Dioxide 26 BUN 12 Creatinine 0.70 Estimated GFR > 60.0 BUN/Creatinine Ratio 17.1 Glucose 252 H Calcium 9.3 Total Bilirubin 0.6 AST 165 H ALT 118 H Alkaline Phosphatase 219 H Total Protein 6.3 Albumin 3.6 Globulin 2.7 Albumin/Globulin Ratio 1.3 Lipase 1038 H Blood Type Antibody Screen 01/30/19 21:30 WBC RBC Hgb Hct MCV MCH MCHC RDW Plt Count Neut % (Auto) Lymph % (Auto) Crane % (Auto) Eos % (Auto) Baso % (Auto) Neut # (Auto) Lymph # (Auto) Crane # (Auto) Eos # (Auto) Baso # (Auto) PT INR Sodium Potassium Chloride Carbon Dioxide BUN Creatinine Estimated GFR BUN/Creatinine Ratio Glucose Calcium Total Bilirubin AST ALT Alkaline Phosphatase Total Protein Albumin Globulin Albumin/Globulin Ratio Lipase Blood Type O Positive Antibody Screen Negative Labs reviewed as above of significance is remarkably elevated lipase, hemoglobin is stable, renal function stable blood sugar is 252. CT shows evidence of changes consistent with colitis the ascending and transverse colon. No evidence for diverticulosis Assessment & Plan Assessment & Plan narrative: 1. Acute flare of her chronic recurrent pancreatitis. No obvious explanation has been found a felt perhaps be to medications. Will attempt to get MRCP could looking more detail the pancreas bile ducts have been stated to be normal no apparent retained stone yet to be determined. This morning she feels much better denies any pain whatsoever but still has a marked tenderness. 2. Abnormal colon on the CT consistent with a colitis unlikely that this relevant to the pancreatitis unlikely this relevant to the red rectal bleeding yet to be determined. Consultation made with Dr. Carbajal general surgeon who anticipate doing a colonoscopy and EGD for the above symptoms. 3. Red rectal bleeding as stated may just be inflammation irritation from frequent stools may be related to her colitis. 4. Remainder of her medical problems are chronic and stable. No change in baseline medications will monitor sugars will withhold her baseline insulin for the time being until she starts eating and then will resume same. With the above symptoms of chronic/acute pancreatitis recurrent, colitis, and red rectal bleeding anticipate she will be in this hospital probably 5 days and return to [facility] upon discharge Quality VTE Deep Vein Thrombosis/Pulmonary Embolism Present on Admission: No
[2019-01-31 10:34] LABS: Blood Urea Nitrogen 12 mg/dL (7-17); Calcium 8.9 mg/dL (8.4-10.2); Carbon Dioxide 25 mmol/L (22-32); Chloride 104 mmol/L (98-107); Estimated Glomerular Filt Rate > 60.0 mL/min (>60); Glucose 133 mg/dL (70-100); Potassium 3.9 mmol/L (3.4-5.1); Sodium 138 mmol/L (137-145)
[2019-01-31 10:35] LABS: Add Manual Diff / Slide Review NO; Basophils Percent Auto 1.4 % (0-2); Eosinophils Percent Auto 0.6 % (2-4); HEMOLYSIS 71 (0-50); Hematocrit 36.3 % (36-46); Hemoglobin 12.1 g/dL (12.0-16.0); Lymphocytes Percent Auto 17.6 % (25-40); Mean Corpuscular HGB Conc 33.3 % (30-36); Mean Corpuscular Hemoglobin 33.3 PG (26-34); Monocytes Percent Auto 7.3 % (3-14); Neutrophils Percent Auto 73.1 % (50-75); Red Blood Cell Count 3.63 X10^6/uL (4.0-5.2); Red Cell Distribution Width 15.1 % (11.6-14.8)
[2019-01-31 11:12] LABS: Platelet Count 202 X10^3/uL (150-400); White Blood Cell Count 12.8 X10^3/uL (4.5-11.0)
[2019-01-31 11:15] LABS: Basophils Absolute Auto 0 /uL (0-100); Eosinophils Absolute Auto 0 /uL (0-450); Lymphocytes Absolute Auto 2 /uL (1100-4500); Monocytes Absolute Auto 1 /uL (0-900)
--- NOTE | 2019-01-31 11:43 | PC.NURSE ---
Addendum entered by Vita Sousa R.N. 01/31/19 14:58: Patient repositioned in bed, brief changed and barrier cream applied. SCD's reapplied, heels elevated. This RN preformed oral care. Patient is hungry, reminded of NPO status. Pt denies further needs at this time. Original Note: Patient resting in bed, repositioned with pillows and brief changed earlier this morning. Noted urine output and bloody mucous BM. Patient has excoriation in the vaginal area, and discharge. Brenda care preformed and brief changed. Dr. Dias in to see patient, orders given for MRCP, water pollution control technician noted that patient has a bladder stimulator and the procedure would not be able to happen. notified. Patient denies pain, dizziness, SOB or feeling nauseated at this time. Will continue to monitor.
--- NOTE | 2019-01-31 13:21 | CM.IDA ---
Initial DCP Assessment Note: Pt is a 58 female, resident of [facility]. Pt w/ recent pancreatitis flare has readmitted w/ abd pain. PCP: Dr Vaughn Payer: Medicare/Medicaid. Spoke w/ Dr Dias today. Surgery consult pending for MRCP. Pt w/recent admission for pancreatitis, dehydration and UTI, DC back home to [facility] yesterday and readmitted same day. Dr Dias expects pt to return home to [facility] upon DC. Reviewed chart, pt here w/UTI/fall- two visits in December and 3 visits in January d/t abd pain. Pt w/complicated medical history, DNR. Last time POLST updated? Met w/pt, explained SW role. Pt says she knew she would come back because of her abd pain yesterday (?) When asked how it is going at [facility] and if it is working well, pt answers yes. Discussed recent readmissions, pt states yes then states her nephew poops on the floor at [facility]. This ROLLER MILL TENDER asks if pt would consider [facility] if the doctor recommends and pt first says I'm going back to [facility] then says I Guess so. Pt says her mom and sister both live in [place]. PT eval not appropriate or needed , Pt is at her functional baseline, she receives full care at [facility]. This ROLLER MILL TENDER discussed pt's cognitive status w/DIALLO Goyal today and requested a SLUMS be done to better define pt's cognitive dysfunction listed in records. Is Mom DPOA? Following closely for coordination of safe DCP. Home to [facility] vs [facility] pending hospital course and DC needs. MERRY Rangel
--- NOTE | 2019-01-31 17:10 | OT.IP.EVAL ---
Past Medical History (Last Reviewed 01/31/19 @ 10:29 by Robson Dias MD) Anxiety (Chronic) Chicken pox (Resolved ~1966) Cognitive dysfunction (Chronic) Depression (Chronic) Diabetes mellitus type 2, insulin dependent (Chronic ~2007) Fecal incontinence (Chronic) Fractures (Resolved ~2017) GERD without esophagitis (Chronic) Hearing loss (Chronic ~2016) High serum lactate (Chronic) Measles (Resolved ~1963) Oligodendroglioma (Chronic ~2011) Orthostatic hypotension (Chronic) Other and unspecified hyperlipidemia (Chronic) Ovarian cyst (Chronic ~1983) Seizure disorder (Chronic) Urinary incontinence (Chronic ~2015) Vision disorder (Chronic) Surgical History (Last Reviewed 01/31/19 @ 10:29 by Robson Dias MD) Anesthesia (Resolved) H/O pelvic surgery (Inactive ~2016) History of cholecystectomy (Resolved ~1987) History of hysterectomy (Resolved ~1988) Occupational Therapy Inpatient Evaluation/Re-Eval M3 OT- IP Subjective and Pain Start: 01/31/19 16:58 Freq: Status: Active Protocol: Document 01/31/19 16:58 [facility] (Rec: 01/31/19 17:10 [facility] [id number]) OT- Subjective Occupational Therapy Visit Type Type Initial Evaluation Visit Start Time 16:45 Visit Stop Time 16:55 Total Visit Minutes 10 Occupational Therapy Visit Comments Patient Comments Pt states very tired but willing to cognitive assessment as per physician's request. M6 OT- IP Functional Cognition Start: 01/31/19 16:58 Freq: Status: Active Protocol: Document 01/31/19 16:58 [facility] (Rec: 01/31/19 17:10 [facility] [id number]) Cognitive Factors Limiting Selfcare Function Cognitive Ability Level of Alertness Alert,Drowsy Patient Orientation Name,Place Attention Span Ability Capable of Focused Attention, Capable of Sustained Attention Ability to Follow Commands Able to Follow One Step Commands Memory Description Short Term Impaired,Working Impaired Problem Solving Ability Unable to Identify Errors, Needs Assist to Identify Solutions Executive Function Ability Unable to Filter Distractions, Unable to Organize Plans, Unable to Remember Details Cognitive Tests SLUMS Pt scored 6/30 and normal score for pt's level of education is 25/30. Pt only able to answer correctly what state we are in, remember 1 out of 5 objects given, able to draw an x on the triangle and pick out the largest shape and answer 1 out of 4 questions given after a paragraph read. Pt admits to being 10/10 tired which may affect her score which implies dementia. Pt states she usually does automatic payments or takes money out from the bank to pay for items . Pt states that in is 1919 and not able to remember any animal names, and during the assessment that, I just can not think. May be beneficial to retest pt when not so tired. Cognitive Comments Cognitive Assessment Comments Pt's SLUMS score implies dementia, however when performing assessment pt states having a hard time to think due to being 10/10 tired . M9 OT- IP Assessment and Plan Start: 01/31/19 16:58 Freq: Status: Active Protocol: Document 01/31/19 16:58 [facility] (Rec: 01/31/19 17:10 [facility] [id number]) OT Summary Assessment and Plan Potential Rehabilitation Potential Poor Analytic Complexity at Evaluation Low Summary OT Impairments Functional Cognition Assessment Summary OT eval ordered for cognitive assessment. Pt scored 6/30 on the SLums which indicates dementia, however pt very tired and stating that she is not able to think well at this time. Therefore may be beneficial to re-try or perform another cognitive assessment when pt not so tired to be sure pt is accurately assessed for cognition. Goals OT-Other Goals Re try SLUMS. Days to Meet Goals 3 Frequency of Treatment Frequency Of Treatment Once a Day Treatment Plan OT Treatment Plan Functional Cognition Training, Discharge Planning Other Treatment Recommendations and Next Re-try SLUMS or try ACL. Treatment Focus Discharge Recommendations OT Discharge Recommendations Home with 26/11 Assist Other Discharge Recommendations Pt to go back to [facility] when medically stable. Staff assists for all dressing,toileting, and bathing needs there.
[2019-01-31] MEDS: FOLIC ACID 0.4 MG TABLET PO (17:12)
--- NOTE | 2019-01-31 18:41 | P.CONS_ITS ---
History of Present Illness Consult details Date Patient Seen: 01/31/19 Time Patient Seen: 18:42 Chief complaint: ABD pain Reason for consult: Heme-positive stool diarrhea Requesting provider: Robson Dias Narrative: The patient is a woman who will has been in the hospital for treatment of pancreatitis and a urinary tract infection. She was actually discharged yesterday but returned with abdominal pain and bloody diarrhea last night. I was asked to see her regarding this and CT findings from last week of a possible colitis. The patient says that her pain from her pancreatitis has returned. It is [place] mainly in the upper abdomen. She has tolerated clear liquids but has been nauseated at times. The patient has 2 watery stools a day. This is been going on for about 2 weeks. She reports to having had a normal colonoscopy about a year ago. This was done elsewhere. [facility] Medical History Anxiety (Chronic) Chicken pox (Resolved ~1966) Cognitive dysfunction (Chronic) Depression (Chronic) Diabetes mellitus type 2, insulin dependent (Chronic ~2007) Fecal incontinence (Chronic) Fractures (Resolved ~2017) GERD without esophagitis (Chronic) Hearing loss (Chronic ~2016) High serum lactate (Chronic) Measles (Resolved ~1963) Oligodendroglioma (Chronic ~2011) Orthostatic hypotension (Chronic) Other and unspecified hyperlipidemia (Chronic) Ovarian cyst (Chronic ~1983) Seizure disorder (Chronic) Urinary incontinence (Chronic ~2015) Vision disorder (Chronic) Surgical History Anesthesia (Resolved) H/O pelvic surgery (Inactive ~2016) History of cholecystectomy (Resolved ~1987) History of hysterectomy (Resolved ~1988) Family History Father Cancer Diabetes mellitus Hypertension Sister Hypertension Sister Cancer Grandfather Heart disease Grandmother Heart disease Social History marital status: number of children: 3 household members: caregiver and other lives independently: Yes caregiver/support person: Yes housing: assisted living facility pets and animals: No education level: high school occupational status: disabled Previous occupational history: [employer]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: None leisure activities: games (Bingo) and other (Movies, TV) Smoking Status: Former smoker Tobacco: How many years used: 2 Smokeless tobacco user: other (Cigarettes) quit status: quit date established (2010) second hand exposure: No alcohol intake: never substance use type: does not use Family History Father Cancer Diabetes mellitus Hypertension Sister Hypertension Sister Cancer Grandfather Heart disease Grandmother Heart disease Social History marital status: number of children: 3 household members: caregiver and other lives independently: Yes caregiver/support person: Yes housing: assisted living facility pets and animals: No education level: high school occupational status: disabled Previous occupational history: [employer]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: None leisure activities: games (Tigerspike) and other (Movies, TV) Smoking Status: Former smoker Tobacco: How many years used: 2 Smokeless tobacco user: other (Cigarettes) quit status: quit date established (2010) second hand exposure: No alcohol intake: never substance use type: does not use Meds Home Medications and Allergies Home Medications Medication Instructions Recorded Confirmed Type aspirin 81 mg PO DAILY 12/23/17 01/31/19 History cholecalciferol (vitamin D3) 1,000 1,000 unit PO DAILY #90 cap 03/04/18 01/31/19 Rx unit capsule ondansetron HCl 4 mg tablet 4 mg PO Q6H PRN #30 tab 05/29/18 01/24/19 Rx dexamethasone 2 mg tablet 2 mg PO BID #90 tab 07/04/18 01/31/19 Rx oxycodone-acetaminophen 5 mg-325 1 tab PO BEDTIME PRN #30 tab 07/14/18 01/24/19 Rx mg tablet folic acid 400 mcg tablet 0.4 mg PO QPM #90 tab 10/06/18 01/31/19 Rx loperamide 2 mg capsule 2 mg PO Q2-4H PRN #60 cap 10/17/18 01/31/19 Rx ibuprofen 400 mg tablet 400 mg PO BID #60 tab 10/24/18 01/31/19 Rx pen needle, diabetic 30 gauge x #100 each 11/20/18 01/26/19 Rx /16 Robitussin Dm 5 ml PO Q4H PRN 12/09/18 01/24/19 History citalopram 20 mg tablet 20 mg PO DAILY #90 tab 12/09/18 01/31/19 Rx hydrocortisone acetate 1 applic TOPICAL Q8H PRN 12/09/18 01/31/19 History insulin glargine [Basaglar KwikPen 60 units SUBCUT QPM 12/09/18 01/31/19 History U-100 Insulin] insulin glargine [Basaglar KwikPen 70 units SUBCUT DAILY 12/09/18 01/31/19 History U-100 Insulin] nystatin 1 applic TOPICAL PRN PRN 12/09/18 01/31/19 History omega 5-vbn-poj-fish oil [Fish Oil] 1 cap PO DAILY 12/09/18 01/31/19 History levetiracetam 500 mg PO DAILY #30 tab 12/11/18 01/31/19 Rx levetiracetam 750 mg PO BEDTIME #30 tab 12/11/18 01/31/19 Rx acetaminophen 325 mg tablet 650 mg PO Q4H PRN #90 tab 12/12/18 01/31/19 Rx meclizine 25 mg tablet 25 mg PO Q6H PRN #90 tab 12/12/18 01/31/19 Rx melatonin 3 mg tablet 6 mg PO BEDTIME #180 tab 12/15/18 01/31/19 Rx simvastatin 20 mg tablet 20 mg PO QPM #90 tab 12/18/18 01/24/19 Rx omeprazole 20 mg capsule,delayed 20 mg PO BID #180 cap 12/30/18 01/24/19 Rx release furosemide 40 mg PO DAILY #0 tab 01/16/19 01/31/19 Rx potassium chloride 40 meq PO BID #180 tab 01/16/19 01/24/19 Rx midodrine 5 mg tablet See Rx Instructions .ROUTE 01/20/19 01/31/19 Rx .COMPLEX #90 tab magnesium oxide 400 mg PO BID #60 tab 01/30/19 01/31/19 Rx Allergies Allergy/AdvReac Type Severity Reaction Status Date / Time adhesive tape Allergy Unknown Verified 01/14/19 20:39 Penicillins Allergy Unknown Verified 01/14/19 20:39 silicone Allergy Unknown Verified 01/14/19 20:39 zonisamide Allergy Unknown Verified 01/14/19 20:39 escitalopram AdvReac Unknown Verified 01/14/19 20:39 lamotrigine AdvReac Unknown Verified 01/14/19 20:39 Review of Systems Review of Systems Narrative: It is not clear to me that the patient's history is accurate. She reports having had no abdominal surgery but among her list of operation are removal of her gallbladder in hysterectomy. She has no chest pain or breathing problems at this time though she has very limited activity. She is a diabetic but thinks her sugars run around 100. She has had brain surgery for an glioma. Exam Vital Signs (past 8 hours): - 01/31/19 12:00 01/31/19 15:45 01/31/19 16:10 Temperature 96.3 F L 99 F Pulse Rate 77 75 Respiratory Rate 14 12 Blood Pressure 105/63 112/54 L Pulse Oximetry 93 100 100 Oxygen Delivery Method Room Air Oxygen Flow Rate 0 Narrative Exam Narrative: Pleasant woman with no apparent distress at this time. She has bruising about her arms and torso. Her skin is thin and and fragile appearing. Eyes are nonicteric. Lungs are clear to auscultation without rales or rhonchi. Heart regular rate and rhythm without murmur gallop. Abdomen is protuberant soft. She has no reaction all when I palpate her abdomen but she states that it hurts quite a bit. No obvious hernias. The patient is rather large. Objective Labs Result Diagrams: 01/31/19 06:00 01/31/19 06:00 Labs: Laboratory Results - last 24 hr 01/30/19 01/30/19 01/30/19 21:00 21:00 21:00 WBC 11.0 RBC 3.74 L Hgb 12.5 Hct 37.4 MCV 100.0 MCH 33.4 MCHC 33.4 RDW 15.0 H Plt Count 247 Neut % (Auto) 76.9 H Lymph % (Auto) 14.0 L [place] % (Auto) 8.0 Eos % (Auto) 0.2 L Baso % (Auto) 0.9 Neut # (Auto) 8500 H Lymph # (Auto) 1500 [place] # (Auto) 900 Eos # (Auto) 0 Baso # (Auto) 100 PT 11.0 INR 1.0 Sodium 135 L Potassium 3.4 Chloride 98 Carbon Dioxide 26 BUN 12 Creatinine 0.70 Estimated GFR > 60.0 BUN/Creatinine Ratio 17.1 Glucose 252 H Calcium 9.3 Total Bilirubin 0.6 AST 165 H ALT 118 H Alkaline Phosphatase 219 H Total Protein 6.3 Albumin 3.6 Globulin 2.7 Albumin/Globulin Ratio 1.3 Lipase 1038 H Blood Type Antibody Screen 01/30/19 01/31/19 01/31/19 21:30 06:00 06:00 WBC 12.8 H RBC 3.63 L Hgb 12.1 Hct 36.3 MCV 100.0 MCH 33.3 MCHC 33.3 RDW 15.1 H Plt Count 202 Neut % (Auto) 73.1 Lymph % (Auto) 17.6 L [place] % (Auto) 7.3 Eos % (Auto) 0.6 L Baso % (Auto) 1.4 Neut # (Auto) Lymph # (Auto) 2 L [place] # (Auto) 1 Eos # (Auto) 0 Baso # (Auto) 0 PT INR Sodium 138 Potassium 3.9 Chloride 104 Carbon Dioxide 25 BUN 12 Creatinine 0.60 Estimated GFR > 60.0 BUN/Creatinine Ratio 20.0 Glucose 133 H D Calcium 8.9 Total Bilirubin AST ALT Alkaline Phosphatase Total Protein Albumin Globulin Albumin/Globulin Ratio Lipase Blood Type O Positive Antibody Screen Negative Assessment & Plan Assessment & Plan narrative: Patient is a woman with diarrhea at least 2 weeks in duration which may Co inside with treatment of her urinary tract infection and her pancreatitis. She has had recurrence of her pancreatitis symptoms and her lipase is markedly elevated once again over 1000. Her liver function tests are also elevated. I would consider doing an EGD and colonoscopy but 1st I would like to get stool studies back before prepping her. If she has C diff or some other infectious cause of her diarrhea that should be treated before instrumenting her. It would be helpful to obtain her prior colonoscopy and if indeed was normal year ago it speaks to and unlikely presence of tumor. If her symptoms clear up with treatment of an infectious colitis it may not be necessary did do a colonoscopy at all. Her epigastric pain and nausea or easily explain by her pancreatitis and is a little concerning that her glucose is elevated. Even though she is only 58 physiologically she appears to be much older. Will await the results of her stool studies before recommending a bowel prep. Probably will be able to make a decision tomorrow morning as the stool has been collected and sent to the lab.
[2019-01-31] MEDS: dexAMETHasone 1 MG TABLET 2 MG PO (21:52)
[2019-01-31] MEDS: levETIRAcetam 250 MG TABLET 750 MG PO (21:52)
[2019-01-31] MEDS: MAGNESIUM OXIDE 400 MG TABLET PO (21:52)
[2019-01-31] MEDS: MELATONIN 3 MG TABLET 6 MG PO (21:52)
[2019-01-31 22:03] LABS: Campylobacter Not Detected (Not Detect); Clostridium difficile toxin AB Not Detected (Not Detect); Cryptosporidium Not Detected (Not Detect); Cyclospora cayetanensis Not Detected (Not Detect); Entamoeba histolytica Not Detected (Not Detect); Enteroaggregative E.coli Not Detected (Not Detect); Enteropathogenic E.coli Not Detected (Not Detect); Enterotoxigenic E.coli It/st Not Detected (Not Detect); Plesiomonsa shigelloides Not Detected (Not Detect); Salmonella Not Detected (Not Detect); Shiga-like toxin-prod E.coli Not Detected (Not Detect); Shigella/Enteroinvasive E.coli Not Detected (Not Detect); Vibrio Not Detected (Not Detect); Vibrio cholerae Not Detected (Not Detect); Yersinia enterocolitica Not Detected (Not Detect)
[2019-01-31 22:04] LABS: Adenovirus F 40/41 Not Detected (Not Detect); Astrovirus Not Detected (Not Detect); Giardia lamblia Not Detected (Not Detect); Norovirus GI/GII Not Detected (Not Detect); Rotavirus A Not Detected (Not Detect)
--- NOTE | 2019-01-31 23:10 | PC.NURSE ---
Jackie shift: A&O to self. denied pain. tolerating clear liquid diet. no visible blood in her stool. q2turn. IVF. bed mobility 2person assist. call light in reach. bed alarm active. Mackenzie(mom) would like the Dr. Dias to call her for update.
[2019-02-01] VITALS (9 sets, daily range): BP systolic 100–137; BP diastolic 42–74; PULSE 72–83; RESP 15–20; TEMP 35.9–36.5; O2SAT 94–100
[2019-02-01] MEDS: SODIUM CHLORIDE 0.9% 1,000 ML 150 ML IV ×2 (04:40→17:56)
[2019-02-01] MEDS: CITALOPRAM 20 MG TABLET PO (08:44)
[2019-02-01] MEDS: dexAMETHasone 1 MG TABLET 2 MG PO ×2 (08:45→21:00)
[2019-02-01] MEDS: FUROSEMIDE 40 MG TABLET PO (08:45)
[2019-02-01] MEDS: levETIRAcetam 250 MG TABLET 500 MG PO (08:46)
[2019-02-01] MEDS: FISH OIL 1,000 MG CAPSULE 1000 MG PO (08:48)
[2019-02-01] MEDS: MAGNESIUM OXIDE 400 MG TABLET PO ×2 (08:48→21:00)
[2019-02-01] MEDS: PANTOPRAZOLE 40 MG VIAL IV (08:49)
[2019-02-01] MEDS: INSULIN ASPART 100 UNIT/ML INSULN PEN SUBCUT ×3 (08:52→21:00)
--- NOTE | 2019-02-01 10:00 | P.PN_ITS ---
Subjective Subjective Date Patient Seen: 02/01/19 Time Patient Seen: 10:00 Interval history: Pancreatitis. Basically feeling better. No nausea. Tolerating clear liquids well. Apparently no stool since last night. Abdominal pain is decreased significantly but still present. Exam Vital Signs (past 8 hours): - 02/01/19 04:25 Temperature 97.2 F L Pulse Rate 81 Respiratory Rate 18 Blood Pressure 106/54 L Pulse Oximetry 96 Oxygen Delivery Method Room Air Oxygen Flow Rate 0 Narrative Exam Narrative: Patient is resting quietly in hospital bed appears in no distress. Lungs are clear. Heart regular rhythm no murmur gallop. Abdominal exam decreased bowel sounds much less tender than yesterday minimal tenderness periumbilically is no masses no rebound Objective Labs Result Diagrams: 01/31/19 06:00 01/31/19 06:00 Labs: Laboratory Results - last 24 hr 01/31/19 01/31/19 01/31/19 06:00 06:00 18:15 WBC 12.8 H RBC 3.63 L Hgb 12.1 Hct 36.3 MCV 100.0 MCH 33.3 MCHC 33.3 RDW 15.1 H Plt Count 202 Neut % (Auto) 73.1 Lymph % (Auto) 17.6 L [place] % (Auto) 7.3 Eos % (Auto) 0.6 L Baso % (Auto) 1.4 Lymph # (Auto) 2 L [place] # (Auto) 1 Eos # (Auto) 0 Baso # (Auto) 0 Sodium 138 Potassium 3.9 Chloride 104 Carbon Dioxide 25 BUN 12 Creatinine 0.60 Estimated GFR > 60.0 BUN/Creatinine Ratio 20.0 Glucose 133 H D Calcium 8.9 Stl C. cayetanensis PCR Not detected Stool Rotavirus (PCR) Not detected Stool Adenovirus (PCR) Not detected Stool Astrovirus (PCR) Not detected Stool Cryptosporidium PCR Not detected Stl E.coli Shiga Tox PCR Not detected St Sh/Enteroin Ecoli PCR Not detected Stool E coli O157 PCR Not detected Stl Enterotoxigenic E PCR Not detected Stool EPEC (PCR) Not detected Stl E. histolytica PCR Not detected Stool Giardia Lamblia PCR Not detected Stl P. shigelloides PCR Not detected St Y.enterocolitica PCR Not detected Stool Vibrio (PCR) Not detected Stl Vibrio cholerae PCR Not detected Stl Enteroaggr Ecoli PCR Not detected Stl Norovirus GI/GII PCR Not detected Campylobacter (PCR) Not detected C. difficile Tox (PCR) Not detected Salmonella (PCR) Not detected labs from today is pending. Stool for C diff negative stool PCR negative no apparent infectious he etiology of her stool changes Assessment & Plan Assessment & Plan narrative: 1. Pancreatitis symptomatically improved sooner real good explanation for the chronic etiology of her pancreatitis. Apparently try to get MRCP but she has a bladder stimulator. Phone call to the patient's daughter by nursing staff relates that they turned stimulator off as per Oncology. Yet to be determined may need transfer for ERCP. 2. Stool changes have improved. Patient undergoing EGD and colonoscopy tomorrow. Etiology of her ?colitis? yet to be determined. 3. Her diabetes is being managed on sliding scale without her baseline insulin so far so good. 4. PT involved to get her out of bed today. 5. Further management as per Dr. Carbajal Quality VTE Deep Vein Thrombosis/Pulmonary Embolism Present on Admission: No
[2019-02-01 10:03] LABS: Add Manual Diff / Slide Review NO; Basophils Absolute Auto 100 /uL (0-100); Basophils Percent Auto 1.3 % (0-2); Eosinophils Absolute Auto 0 /uL (0-450); Eosinophils Percent Auto 0.5 % (2-4); Hematocrit 36.3 % (36-46); Lymphocytes Absolute Auto 1700 /uL (1100-4500); Lymphocytes Percent Auto 20.2 % (25-40); Mean Corpuscular HGB Conc 33.1 % (30-36); Mean Corpuscular Hemoglobin 33.7 PG (26-34); Mean Corpuscular Volume 101.8 fL (80-100); Monocytes Absolute Auto 500 /uL (0-900); Monocytes Percent Auto 6.3 % (3-14); Neutrophils Absolute Auto 6000 /uL (1500-7000); Neutrophils Percent Auto 71.7 % (50-75); Platelet Count 209 X10^3/uL (150-400); Red Blood Cell Count 3.57 X10^6/uL (4.0-5.2); Red Cell Distribution Width 15.3 % (11.6-14.8); White Blood Cell Count 8.4 X10^3/uL (4.5-11.0)
[2019-02-01 10:12] LABS: Alanine Aminotransferase 121 IU/L (9-52); Albumin 3.3 g/dL (3.5-5.0); Albumin Globulin Ratio 1.2 (1.0-2.8); Alkaline Phosphatase 188 U/L (38-126); Aspartate Aminotransferase 157 IU/L (14-36); BUN Creatinine Ratio 16.7 (6-22); Bilirubin Total 0.8 mg/dL (0.2-1.3); Blood Urea Nitrogen 10 mg/dL (7-17); Calcium 8.7 mg/dL (8.4-10.2); Carbon Dioxide 23 mmol/L (22-32); Chloride 102 mmol/L (98-107); Estimated Glomerular Filt Rate > 60.0 mL/min (>60); Globulin 2.7 g/dL (1.7-4.1); Glucose 228 mg/dL (70-100); HEMOLYSIS < 15 (0-50); Lipase 457 U/L (23-300); Potassium 3.1 mmol/L (3.4-5.1); Sodium 136 mmol/L (137-145)
--- NOTE | 2019-02-01 11:37 | PC.NURSE ---
Patient currently resting in bed with family at bedside. Alert and oriented mainly to self, some confusion regarding past medical care, current plan with short term memory deficient. Patient cooperative, calm and amicable during care. Patient denies pain, SOB, dizziness or feeling nauseated at this time. Lung sounds clear, HR and rhythm WNL, 3+ pitting generalized edema noted. Pts abdomen is distended, firm and mildly tender to pressure. NS @150 ml/hr, IV site is CDI. Brief changed, patient tolerated movement well. Patient to work with PT later. Patient denies further needs at this time. Call light in reach, bed alarm on.
--- NOTE | 2019-02-01 15:02 | PT-IP ANOTE ---
PT orders received. NATURAL DEVELOPER note from yesterday indicates PT eval not appropriate or needed , Pt is at her functional baseline, she receives full care at [facility]. This information is consistent with information gathered by this PT previously, with [facility] confirming on 01/25/19 that pt is dependent for all mobility, uses a frida lift for transfers and is non-ambulatory. She uses a manual w/c which she is able to propel on her own. Pt remains at her functional baseline. If there is a change in status, PT would be happy to re-evaluate.
--- NOTE | 2019-02-01 15:21 | CM.SWNOTE ---
DCP/continued: Reviewed chart. Patient seen by surgery today. Currently awaiting stool studies to determine if further w/u needed. Patient came from [facility] and has had several visits to [facility] within the last 2 months. Anticipate that patient will return to [facility] however, would benefit from some assistance with disease process/mental health. Placed call to [facility]# [phone]. Per previous CM notes assigned MH director of casework services is Ajay Lazo. Unable to leave message over the w/e. P: Anticipate return to [facility] when stable. Possible colonoscopy on Saturday02-02-19. Call [facility] during business hours to determine their level of MH involvement? [facility] contact is [facility]# [phone]. MERRY Jamil
[2019-02-01] MEDS: PEG3350/SOD SULF,BICARB,CL/KCL 4,000 ML SOLUTION 2000 ML PO (17:00)
[2019-02-01] MEDS: FOLIC ACID 0.4 MG TABLET PO (17:01)
--- NOTE | 2019-02-01 20:43 | PC.NURSE ---
Addendum entered by Lucila Boothe R.N. 02/01/19 21:50: PO meds given with sips of Go-Lytely. Other than sips she refuses to drink this willingly, has facial grimace and pushed cup away when I offered it to her. Once again I talked to her about rationale for bowel prep, still refusing to drink Go-Lytely at this time. Original Note: Evening note: Patient given GO-Lytely in paper cup with straw. Has taken in about 75 ml but now refusing to drink any more. When I explained rationale, and talked about how surgeon wants to do endoscopy tomorrow and this is the reason she is in hospital she became agitated yelling loudly you are bothering me and I already cleared my bowels. I have been in room to instruct her to drink Go-Lytely 3 x's since originally poured in cup earlier this evening, just now did accept small sip and then scrunched up face and said no more. All other previous times I have instructed her to drink she nods head yes but clearly refuses to drink this prep. Will continue to do teaching and see if she will accept. She is incontinent of extra large amts of urine & stool tonight, stool is loose & brown in color. Labia and inner buttocks erythemic, barrier creme applied to buttocks. Pt turned toward right side for comfort. She is reluctant to call nurse or participate in care. Flat affect. VS stable. She is a 2 max assist reposition, she can also assist to turn self in bed. Fall precautions in place, alarm active for safety.
[2019-02-01] MEDS: levETIRAcetam 250 MG TABLET 750 MG PO (20:59)
[2019-02-02] VITALS (8 sets, daily range): BP systolic 117–131; BP diastolic 63–75; PULSE 71–79; RESP 16–20; TEMP 35.7–37.2; O2SAT 94–100
[2019-02-02] MEDS: SODIUM CHLORIDE 0.9% 1,000 ML 150 ML IV ×2 (00:22→07:27)
--- NOTE | 2019-02-02 01:13 | PC.NURSE ---
Addendum entered by Allison Acevedo R.N. 02/02/19 05:56: Continues to deny pain but when abdomen palpated does state it hurts although exhibits no signs of discomfort during palpation. Original Note: Patient is oriented to self, birthdate, age, year and why she is hospitalized. Breath sounds diminished but CTA with RA sat of 96%. HRR. Denies nausea. BT hypoactive; abdomen is soft. Has been incontinent of B&B. Was to have taken Go-Lytely on previous shift but has taken only minimal; refusing to drink any except for sips. Bruising on all extremities, face and abdomen. Inner buttocks is reddened but without breakdown; zinc cream applied. Needing to be changed/repositioned q2h; is able to turn self but does not do without staff telling her to. 3+ edema bilateral LE. Denies pain. Wearing bilateral SCD's. Fall risk score is high and bed alarm is activated.
[2019-02-02 05:17] LABS: Add Manual Diff / Slide Review NO; Basophils Absolute Auto 100 /uL (0-100); Basophils Percent Auto 0.9 % (0-2); Eosinophils Absolute Auto 0 /uL (0-450); Eosinophils Percent Auto 0.3 % (2-4); Hematocrit 32.8 % (36-46); Hemoglobin 11.2 g/dL (12.0-16.0); Lymphocytes Absolute Auto 1200 /uL (1100-4500); Lymphocytes Percent Auto 15.5 % (25-40); Mean Corpuscular Hemoglobin 34.2 PG (26-34); Mean Corpuscular Volume 100.5 fL (80-100); Monocytes Absolute Auto 500 /uL (0-900); Monocytes Percent Auto 6.9 % (3-14); Neutrophils Absolute Auto 5900 /uL (1500-7000); Neutrophils Percent Auto 76.4 % (50-75); Platelet Count 195 X10^3/uL (150-400); Red Blood Cell Count 3.27 X10^6/uL (4.0-5.2); White Blood Cell Count 7.7 X10^3/uL (4.5-11.0)
--- NOTE | 2019-02-02 08:25 | PM.PN.1 ---
Subjective Subjective Date Patient Seen: 02/02/19 Interval history: Complex patient who is been in the hospital much the time while I have been away over the last 2 weeks. Readmitted several hours after being discharged last week. Patient with persistent ongoing intermittent diarrhea and abdominal pain. Has had objective findings with abdominal discomfort as well as elevated lipase levels although very little else in the way of abnormalities. Her elevated lipase level due date back to 2018. Patient clearly did present with clinical symptoms consistent with pancreatitis. She also Does show evidence of some sort of colitis on CT imaging. She has had negative workup for infectious etiologies for her colitis. She remains on dexamethasone because of her brain tumor and in that setting would be unusual to have an inflammatory bowel process that is active. The etiology of her GI issues remains a mystery Patient has been seen by surgery and plan was for upper and lower endoscopy although patient has refused to ingest the prep for the colonoscopy. Patient is status post cholecystectomy and biliary system looks normal on CT imaging. While patient had elevated LFTs and alkaline phosphatase this goes back over a year. Unable to have MRI/MRCP because of implanted bladder device which we are unable to turn off here apparently. Patient has had multiple MRIs of the brain done elsewhere so that can be accomplished. May need ERCP to further delineate biliary tract given her elevated lipase levels Currently patient is rather unhappy to be here. Not really cooperative. Does not really complain of abdominal symptoms but has some tenderness upon palpation Exam Vital Signs (past 8 hours): - 02/02/19 06:00 Temperature 97.7 F Pulse Rate 71 Respiratory Rate 16 Blood Pressure 125/74 Pulse Oximetry 99 Oxygen Delivery Method Room Air Oxygen Flow Rate 0 Narrative Exam Narrative: Unchanged from when I saw her last upon discharge from her last hospitalization on January 16 (although she was admitted subsequent to that) Objective Labs Result Diagrams: 02/02/19 04:50 02/01/19 09:52 Labs: Laboratory Results - last 24 hr 02/01/19 02/01/19 02/02/19 09:52 09:52 04:50 WBC 8.4 7.7 RBC 3.57 L 3.27 L Hgb 12.0 11.2 L Hct 36.3 32.8 L MCV 101.8 H 100.5 H MCH 33.7 34.2 H MCHC 33.1 34.0 RDW 15.3 H 15.0 H Plt Count 209 195 Neut % (Auto) 71.7 76.4 H Lymph % (Auto) 20.2 L 15.5 L [place] % (Auto) 6.3 6.9 Eos % (Auto) 0.5 L 0.3 L Baso % (Auto) 1.3 0.9 Neut # (Auto) 6000 5900 Lymph # (Auto) 1700 1200 [place] # (Auto) 500 500 Eos # (Auto) 0 0 Baso # (Auto) 100 100 Sodium 136 L Potassium 3.1 L Chloride 102 Carbon Dioxide 23 BUN 10 Creatinine 0.60 Estimated GFR > 60.0 BUN/Creatinine Ratio 16.7 Glucose 228 H Calcium 8.7 Total Bilirubin 0.8 AST 157 H ALT 121 H Alkaline Phosphatase 188 H Total Protein 6.0 L Albumin 3.3 L Globulin 2.7 Albumin/Globulin Ratio 1.2 Lipase 457 H D Assessment & Plan Assessment & Plan narrative: 1. GI-no clear etiology for elevated lipase and evidence of colitis on imaging. She is not going to cooperate with prep for colonoscopy which is going to complicate things. As above would be unlikely to have an inflammatory bowel issue with her ongoing dexamethasone therapy, and her PCR panels looking for infectious etiology have been negative. Perhaps the metformin that she has been receiving for her diabetes is sick contributing factor here. That will be discontinued moving forward. She is not on it currently. Patient also remains on magnesium supplementation because of electrolyte issues which will contribute to diarrhea anyway. May need to have formal GI consultation elsewhere. Appreciate Dr. Carbajal's input and thoughts regarding this as well. 2. Hypokalemia-will give IV potassium 3. UTI-patient with recent issues with UTI although current urine looks to be okay and I believe she has been adequately treated for this 4. Diabetes-patient has not been continued on her long-acting insulin. Patient on large doses of insulin for control blood sugars. This is certainly exacerbated by dietary indiscretion as has been well documented previously. I am going to restart at least some of her long-acting insulin this morning given blood sugars nearing or in excess of 300. The dexamethasone of course is complicating this as well but the majority of her issues with poor blood sugar control appears to be dietary indiscretion 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 Oncology wants her to continue on dexamethasone without other further therapies. 6. Seizure disorder-continue with Keppra as replacement for Dilantin for which she had significant difficulty and side effects previously 7. DVT prophylaxis-patient not a good candidate for Lovenox given the blood in the stool as well as possible need for procedures. She also has obvious bruising from multiple falls. She has refused SCDs however. Difficult to know with the right answer is as far as VTE prophylaxis in this patient. Will continue to consider Lovenox but at this time of chosen not to initiate. 8. Disposition-I believe patient would be far better served going to a long-term facility rather than back to [facility]. I will continue to work with her and try and convince her that this would be more appropriate. Quality VTE Deep Vein Thrombosis/Pulmonary Embolism Present on Admission: No
[2019-02-02] MEDS: CITALOPRAM 20 MG TABLET PO (08:39)
[2019-02-02] MEDS: dexAMETHasone 1 MG TABLET 2 MG PO ×2 (08:39→20:48)
[2019-02-02] MEDS: FUROSEMIDE 40 MG TABLET PO (08:40)
[2019-02-02] MEDS: MAGNESIUM OXIDE 400 MG TABLET PO ×2 (08:43→20:47)
[2019-02-02] MEDS: levETIRAcetam 250 MG TABLET 500 MG PO (08:43)
[2019-02-02] MEDS: FISH OIL 1,000 MG CAPSULE 1000 MG PO (08:43)
[2019-02-02] MEDS: PANTOPRAZOLE 40 MG VIAL IV (08:44)
[2019-02-02] MEDS: INSULIN ASPART 100 UNIT/ML INSULN PEN SUBCUT ×4 (08:46→21:00)
[2019-02-02] MEDS: INSULIN GLARGINE 100 UNIT/ML 10ML VIAL 70 UNIT SUBCUT (08:48)
--- NOTE | 2019-02-02 09:05 | PC.NURSE ---
Patient resting in bed eating breakfast. Reminded patient that she must drink bowel prep in order to have colonoscopy, pt replied I do not want it. Educated patient on procedure but she is unwilling to move forward. Fluids D/C'd, patient is still on clear liquid diet. Morning medications given. Patient denies abd pain, SOB or generalized pain. Call light in reach.
--- NOTE | 2019-02-02 09:59 | OT.IP.TRT ---
Occupational Therapy Treatment Note M3 OT- IP Subjective and Pain Start: 01/31/19 16:58 Freq: Status: Active Protocol: Document 02/02/19 09:23 [facility] (Rec: 02/02/19 09:33 [facility] [id number]) OT- Subjective Occupational Therapy Visit Type Type Treatment Note Visit Start Time 09:13 Visit Stop Time 09:21 Total Visit Minutes 8 Occupational Therapy Visit Comments Patient Comments Pt more alert this morning and agreeable to redo SLUMS for cognitive assessment. M6 OT- IP Functional Cognition Start: 01/31/19 16:58 Freq: Status: Active Protocol: Document 02/02/19 09:23 [facility] (Rec: 02/02/19 09:33 [facility] [id number]) Cognitive Factors Limiting Selfcare Function Cognitive Ability Level of Alertness Alert Patient Orientation Name,Year Attention Span Ability Capable of Focused Attention, Capable of Sustained Attention Ability to Follow Commands Able to Follow One Step Commands Memory Description Short Term Impaired,Working Impaired Problem Solving Ability Unable to Identify Errors, Needs Assist to Identify Solutions Executive Function Ability Unable to Filter Distractions, Unable to Organize Plans, Unable to Remember Details Cognitive Tests SLUMS Pt's score 01/31/19- 6 and for 02/02/19 pt's score 8/30, normal score for pt 's education is 25/30. Pt more alert today but pt's score still implies pt has dementia/ severe cognitive impairments. Cognitive Comments Cognitive Assessment Comments Pt alert today. Pt admits to having difficulty to remember things and information just given to pt. Pt improved today from Saturday by remembering the year and able to name 6 animals versus unable to recall any on Saturday. M9 OT- IP Assessment and Plan Start: 01/31/19 16:58 Freq: Status: Active Protocol: Document 02/02/19 09:23 [facility] (Rec: 02/02/19 09:33 [facility] [id number]) OT Summary Assessment and Plan Summary Assessment Summary Pt alert today and able to reassess cognition . Therefore discharge pt from OT services as prior level of care for OT was dependent for dressing, toileting, and bathing needs. Pt able to do own grooming and eating after set-up. Pt to go back to [facility] when medically stable. Discharge Recommendations OT Discharge Recommendations Home with Assistance Other Discharge Recommendations Pt to go back to [facility] when medically stable. Staff assists for all dressing,toileting, and bathing needs there.
[2019-02-02] MEDS: POTASSIUM CHLORIDE 60 MEQ in SODIUM CHLORIDE 0.9% 500 ML 88.333 ML IV (10:14)
[2019-02-02] MEDS: BISACODYL 5 MG TABLET 20 MG PO (10:17)
[2019-02-02] MEDS: MAGNESIUM CITRATE 300 ML SOLUTION 150 ML PO (14:13)
[2019-02-02] MEDS: FOLIC ACID 0.4 MG TABLET PO (17:16)
[2019-02-02] MEDS: FLEETS ENEMA 1 EACH PR (20:47)
[2019-02-02] MEDS: MELATONIN 3 MG TABLET 6 MG PO (20:47)
[2019-02-02] MEDS: levETIRAcetam 250 MG TABLET 750 MG PO (20:48)
[2019-02-02] MEDS: SODIUM CHLORIDE 0.9% FLUSH 10 ML IV (22:19)
--- NOTE | 2019-02-02 23:39 | PC.NURSE ---
Evening notes: Breana continues to have diarrhea stool tonight. Has had 3 stools which are pale yellow liquid, thin consistency. Enema given around 2100 with additional pale yellow liquid stool output. Patient incontinent of large amounts of urine as well. Skin to labia majora & hermelindo-anal region are red and excoriated from moisture. Barrier creme with zinc applied to redenned areas with all brief changes to help protect skin. Patient oriented to self and situation, cooperative, moans with brief changes and reports skin very sensitive during care. VS stable. At 2230 she requested that SCDs be taken off, I then removed them. Fall precautions in place, she is using nurse call button appropriately & reminded to call for any needs/concerns tonight. Alarm active for safety.
[2019-02-03] VITALS (19 sets, daily range): BP systolic 90–142; BP diastolic 56–76; PULSE 67–88; RESP 14–20; TEMP 35.6–36.8; O2SAT 90–99; BMI 48.6
--- NOTE | 2019-02-03 | PATH_ITS ---
[facility] Accession Number: [id number] . 01 Material submitted: . PART A: colon - TRANSVERSE COLON POLYP @ 70CM PART B: colon - COLON POLYP @ 40CM PART C: colon - COLON POLYP @ 20CM . 02 Diagnosis: A. Transverse Colon, Polyp at 70 cm, Biopsy: Tubular adenoma. . B. Colon, Polyp at 40 cm, Biopsy: Hyperplastic polyp. Additional levels were examined. . C. Colon, Polyp at 20 cm, Biopsies: Hyperplastic polyps. MRV 02/06/2019 1344 Local . 02 Electronically signed: . Gillian Uribe MD, Pathologist NPI- [id number] . 01 Gross description: . Part A: TRANSVERSE COLON POLYP @ 70CM: Received in formalin is 1 fragment(s) of bautista, soft tissue measuring 0.2 x 0.1 x 0.1 cm submitted entirely in 1 cassette(s) Part B: COLON POLYP @ 40CM: Received in formalin is 1 fragment(s) of bautista, soft tissue measuring 0.3 x 0.3 x 0.3 cm submitted entirely in 1 cassette(s) Part C: COLON POLYP @ 20CM: Received in formalin are 5 fragment(s) of bautista, soft tissue measuring 0.3 x 03 x 0.2 cm to 0.2 x 0.1 x 0.1 cm submitted entirely in 1 cassette(s) /[facility] 02/04/2019 1237 Local . 02 Pathologist provided ICD-10: D12.3 . 02 CPT . 670106, [id number], [id number] Performed at: [address], [place], [place] [id number] MD Aristeo Fry MD Phone: [phone] Performed at: 02 [facility] [place] [id number] [place] [id number] MD Gillian Uribe MD Phone: [phone]
[2019-02-03] MEDS: HYDROCORTISONE 1% CREAM 28 GM 1 APPLIC TOP (01:30)
--- NOTE | 2019-02-03 01:59 | PC.NURSE ---
Patient oriented except did not know month/day or day of week. Breath sounds diminished at bases but CTA with RA sat of 98%. HRR. Denies nausea. BT hypoactive and denies tenderness/pain even with palpation. Incontinent of B&B so is needing to be checked/changed q2h along with repositioning. Inner labia and between buttocks very red and complains of alot of discomfort when area is cleansed; Hydrocortisone cream applied with patient stated relief. Bruising on all extremites, right side of face and abdomen. 3+ bilateral LE edema and upper extremites are also puffy. SCD's off at shift change and now reapplied. Fall risk score is high and bed alarm is activated. Keeping patient NPO for possible EGD/colonscopy later today.
[2019-02-03 05:46] LABS: Add Manual Diff / Slide Review NO; Basophils Absolute Auto 0 /uL (0-100); Basophils Percent Auto 0.4 % (0-2); Eosinophils Absolute Auto 0 /uL (0-450); Eosinophils Percent Auto 0.5 % (2-4); Hematocrit 34.9 % (36-46); Hemoglobin 11.7 g/dL (12.0-16.0); Lymphocytes Absolute Auto 1400 /uL (1100-4500); Lymphocytes Percent Auto 18.1 % (25-40); Mean Corpuscular HGB Conc 33.5 % (30-36); Mean Corpuscular Hemoglobin 33.7 PG (26-34); Mean Corpuscular Volume 100.7 fL (80-100); Monocytes Absolute Auto 500 /uL (0-900); Monocytes Percent Auto 6.9 % (3-14); Neutrophils Absolute Auto 5700 /uL (1500-7000); Neutrophils Percent Auto 74.1 % (50-75); Platelet Count 208 X10^3/uL (150-400); Red Blood Cell Count 3.47 X10^6/uL (4.0-5.2); Red Cell Distribution Width 14.9 % (11.6-14.8); White Blood Cell Count 7.6 X10^3/uL (4.5-11.0)
[2019-02-03 05:50] LABS: BUN Creatinine Ratio 8.3 (6-22); Blood Urea Nitrogen 5 mg/dL (7-17); Calcium 8.7 mg/dL (8.4-10.2); Carbon Dioxide 29 mmol/L (22-32); Chloride 103 mmol/L (98-107); Estimated Glomerular Filt Rate > 60.0 mL/min (>60); Glucose 244 mg/dL (70-100); HEMOLYSIS < 15 (0-50); Magnesium 1.5 mg/dL (1.6-2.3); Potassium 3.2 mmol/L (3.4-5.1); Sodium 136 mmol/L (137-145)
[2019-02-03] MEDS: dexAMETHasone 1 MG TABLET 2 MG PO ×2 (09:14→22:16)
[2019-02-03] MEDS: PANTOPRAZOLE 40 MG VIAL IV (09:14)
[2019-02-03] MEDS: INSULIN GLARGINE 100 UNIT/ML 10ML VIAL 70 UNIT SUBCUT (09:27)
--- NOTE | 2019-02-03 09:40 | PM.PREOP ---
Pre-operative Note Interval Note History & Physical reviewed/Exam performed by Physician: Yes Changes to H&P: Yes H&P completed within 30 days and has changed as indicated here:: See my consultation note. No evidence of a an infectious cause of her colitis. Will proceed to colonoscopy. She initially refused to take the bowel prep but is now doing so. This has delayed my ability to scope her. ASA Class (for procedural sedation): III
--- NOTE | 2019-02-03 10:01 | PM.PN.1 ---
Subjective Subjective Date Patient Seen: 02/03/19 Time Patient Seen: 09:15 Interval history: Patient is lying in bed asking about breakfast. She is supposed to have colonoscopy today. Has refused prep but agrees to drink it now. No complaints of abdominal pain, shortness of breath. Exam Vital Signs (past 8 hours): - 02/03/19 04:00 02/03/19 08:00 Temperature 98.2 F 97.9 F Pulse Rate 78 68 Respiratory Rate 18 14 Blood Pressure 123/73 111/71 Pulse Oximetry 98 99 Oxygen Delivery Method Room Air Oxygen Flow Rate 0 Narrative Exam Narrative: Middle-aged female who looks older than stated age in no obvious distress lying in her hospital bed with obvious cushingoid changes in her face, pale HEENT-normocephalic, dark ring circling the right zygomatic arch Lungs-good breath sounds without wheezes Heart-regular rate and rhythm no murmur Abdomen-positive bowel tones soft, mildly tender to deep palpation RUQ, obesity limits exam Extremities-2+ edema along both shins, warm, SCDs in place, bruising both arms Objective Labs Result Diagrams: 02/03/19 05:00 02/03/19 05:00 Labs: Laboratory Results - last 24 hr 02/03/19 02/03/19 05:00 05:00 WBC 7.6 RBC 3.47 L Hgb 11.7 L Hct 34.9 L MCV 100.7 H MCH 33.7 MCHC 33.5 RDW 14.9 H Plt Count 208 Neut % (Auto) 74.1 Lymph % (Auto) 18.[address] [place] % (Auto) 6.9 Eos % (Auto) 0.5 L Baso % (Auto) 0.4 Neut # (Auto) 5700 Lymph # (Auto) 1400 [place] # (Auto) 500 Eos # (Auto) 0 Baso # (Auto) 0 Sodium 136 L Potassium 3.2 L Chloride 103 Carbon Dioxide 29 BUN 5 L Creatinine 0.60 Estimated GFR > 60.0 BUN/Creatinine Ratio 8.3 Glucose 244 H Calcium 8.7 Magnesium 1.5 L Assessment & Plan Assessment & Plan narrative: 1. GI-no clear etiology for elevated lipase and evidence of colitis on imaging. She agrees to cooperate with golytely this morning. Would not suspect inflammatory bowel issue with her ongoing dexamethasone therapy. PCR continues to be negative. Have stopped her metformin so is not currently a contributor. Patient also remains on magnesium supplementation because of electrolyte issues which will contribute to diarrhea anyway. May need to have formal GI consultation elsewhere. Appreciate Dr. Carbajal's input and plans for colonoscopy when we can get her prepped. 2. Hypokalemia/magnesium-IV potassium yesterday. Will give magnesium today and recheck tomorrow. 3. UTI-patient with recent issues with UTI without new evidence of infection. 4. Diabetes-given she will be prepping for procedure will give 35 units lantus this morning and continue sliding scale coverage. The dexamethasone of course is complicating this as well. 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 Oncology wants her to continue on dexamethasone without other further therapies. 6. Seizure disorder-continue with Keppra as replacement for Dilantin for which she had significant difficulty and side effects previously 7. DVT prophylaxis-patient not a good candidate for Lovenox given the blood in the stool as well as plan for colonoscopy. She also has obvious bruising from multiple falls. She has SCD's in place. 8. Disposition-I believe patient would be far better served going to a intermediate facility rather than back to [facility]. I will continue to work with her and try and convince her that this would be more appropriate. Patient's mother is in agreement with this. Quality VTE Deep Vein Thrombosis/Pulmonary Embolism Present on Admission: No
[2019-02-03] MEDS: CITALOPRAM 20 MG TABLET PO (10:07)
[2019-02-03] MEDS: MAGNESIUM OXIDE 400 MG TABLET PO ×2 (10:08→22:17)
[2019-02-03] MEDS: FUROSEMIDE 40 MG TABLET PO (10:08)
[2019-02-03] MEDS: levETIRAcetam 250 MG TABLET 500 MG PO (10:21)
[2019-02-03] MEDS: SODIUM CHLORIDE 0.9% FLUSH 10 ML IV ×2 (10:21→22:19)
[2019-02-03] MEDS: MAGNESIUM SULFATE 2 GM/50 ML PIGGYBACK IV (10:24)
[2019-02-03] MEDS: MECLIZINE HCL 12.5 MG TABLET 25 MG PO (10:24)
--- NOTE | 2019-02-03 11:07 | PC.NURSE ---
1100 Pt continues to sip a the Go Lytely prep. Pt needs encourement mto drink ths prep. Pt NPO for endoscopy today. Need bowel prep completed. Pt is mostly reluctant to drink . Pt inc of sml pale loose BM x 1 this am.
--- NOTE | 2019-02-03 14:50 | PC.NURSE ---
1450 Pt gone for endoscopy via stretcher. Pt was cleansed from inc of urine and very sml amt BM.
--- NOTE | 2019-02-03 15:36 | CM.DPC ---
DCP/continued: Reviewed chart. Attempted to meet with patient today to discuss d/c planning. Patient off floor for colonoscopy/EGD. Patient admitted from [facility] with abdominal pain. Patient with recent visits to [facility] with same complaint. Current recommendation from MD is for patient to go to [facility] at time of d/c. Spoke with Lyn at [facility] on 02-02-19, she reports that they can accept. Need to confirm that patient agreeable to go to [facility] for short stay when appropriate to do so. Last visit patient returned to [facility] and came back within short amount of time with same complaint. Placed call to Ajay Lazo ([facility] program at [facility]) ph# [phone] left requesting return call re: input on MH and/or discharge planning. P: [facility] has accepted when medically stable. CM team to assess patient in person to determine she is agreeable to d/c plan. Lyn reports that she briefly met with patient on 02-02-19 and she was in agreement to go to [facility]. Anticipate patient will need hospital exempt PASRR. Will finalize once assessment with patient completed. Will refer to DEALER SALES REP on 02-04-19. MERRY Jamil
[2019-02-03] MEDS: ZINC OXIDE OINT 60 GM 1 APPLIC TOP (16:38)
--- NOTE | 2019-02-03 16:43 | PM.OP.ENDO ---
Operative Date/Time/Diagnoses Date of procedure: 02/03/19 Time of procedure: 16:43 Pre-op diagnosis: Rectal bleeding. Epigastric pain. Post-op diagnosis: same (Proctitis. Colon polyp. Normal upper endoscopy.) Procedure & Clinicians Study performed: EGD. Colonoscopy with cold biopsy Same procedure as scheduled: Yes Indications: Determine cause of rectal bleeding. Determine if there is an upper GI says cause of her epigastric pain. Surgeon: Tyson Carbajal Procedure Notes SCOAP/Timeout: Performed Procedure in detail: The patient was placed supine on her stretcher and underwent general endotracheal anesthesia. This was due to her severe medical issues and the need to adequately control her airway during these procedures. She is morbidly obese and has numerous other issues. A bite block was inserted and the scope was advanced through it into the esophagus. The esophagus was unremarkable. GE junction was noted at 40 cm from the incisors. The stomach insufflated well. There were no lesions seen in the body, antrum or at the incisura. The pyloric channel was patent. The duodenum was unremarkable to the 4th part. The scope was brought back into the stomach and retroflexed. The proximal stomach normal in appearance. The scope was straightened and brought out through the esophagus again. No lesions were seen. The scope was removed and the patient tolerated the procedure well. The patient was placed in the left lateral decubitus position. Digital exam was remarkable for a very lax sphincter and excoriation of the skin around her anus extending into her vagina. The scope was inserted and advanced through the rectum into the sigmoid, descending, transverse, and ascending colon. She was noted to have proctitis there was fairly significant. There was a lesion noted at [address] which was biopsied and removed. This is a small polypoid lesion a not the source of bleeding.. The cecum was reached identified by the ileocecal valve . There was no evidence of colitis anywhere above 20 cm. The colon appeared soft and malleable. It was not friable or inflamed. The scope was gradually brought out. No other Polyps were found. Biopsies were taken of the rectum from 20 cm to the anus. These are random.. The scope ultimately was retroflexed in the rectum. The appearance was remarkable for some scarring but otherwise there was no evidence of significant hemorrhoidal disease with ulceration.. The scope was removed and the patient tolerated the procedure well. The prep was excellent. Scope withdrawal time: 7-1/2 minutes Sedation minutes: 0 (General anesthesia due to complex medical issues and need to protect and control airway) Findings: polyp (Polyp at 20 cm) and other findings (Proctitis) Specimen(s): other (Polyp. Rectal biopsies.) Complications: none Post-procedure Recommendations: Other recommendation (Begin steroid enemas pending biopsy results.) Follow up: as needed Disposition: PACU
--- NOTE | 2019-02-03 17:16 | SUR.PHASEI ---
Dr. Carbajal notified [facility]G 230, VVO for Regular insulin, 5 units IV. Also, verified ok for patient to have ice chips.
[2019-02-03] MEDS: INSULIN REGULAR 100 UNIT/ML 3 ML VIAL IV (17:28)
--- NOTE | 2019-02-03 17:39 | SUR.PHASEI ---
report called to Lily
--- NOTE | 2019-02-03 18:12 | SUR.PHASEI ---
Pt transferred to the floor on 1l O2 NC and pulse ox. Report to Syn[facility]. VS stable. Pt incontinent of urine. Pt transferred to the bed by slider board and pt cleaned. IV saline locked.
[2019-02-03] MEDS: FOLIC ACID 0.4 MG TABLET PO (18:43)
--- NOTE | 2019-02-03 20:22 | PC.NURSE ---
Pt came to unit with insulin orders discontinued. Dr. Doyle wrote for previous orders, but for moderate dose algorithm.
[2019-02-03] MEDS: INSULIN ASPART 100 UNIT/ML INSULN PEN SUBCUT (21:39)
[2019-02-03] MEDS: MELATONIN 3 MG TABLET 6 MG PO (22:17)
[2019-02-03] MEDS: levETIRAcetam 250 MG TABLET 750 MG PO (22:18)
[2019-02-04] VITALS (9 sets, daily range): BP systolic 99–132; BP diastolic 49–73; PULSE 71–86; RESP 14–19; TEMP 36–36.8; O2SAT 94–99
[2019-02-04] MEDS: ACETAMINOPHEN 325 MG TABLET 650 MG PO ×2 (02:59→09:40)
[2019-02-04 06:26] LABS: Add Manual Diff / Slide Review NO; Basophils Absolute Auto 100 /uL (0-100); Basophils Percent Auto 0.8 % (0-2); Eosinophils Absolute Auto 100 /uL (0-450); Hemoglobin 11.3 g/dL (12.0-16.0); Lymphocytes Absolute Auto 700 /uL (1100-4500); Lymphocytes Percent Auto 8.6 % (25-40); Mean Corpuscular HGB Conc 34.1 % (30-36); Mean Corpuscular Hemoglobin 34.3 PG (26-34); Mean Corpuscular Volume 100.8 fL (80-100); Monocytes Absolute Auto 500 /uL (0-900); Monocytes Percent Auto 5.8 % (3-14); Neutrophils Absolute Auto 7000 /uL (1500-7000); Neutrophils Percent Auto 83.8 % (50-75); Platelet Count 199 X10^3/uL (150-400); Red Blood Cell Count 3.28 X10^6/uL (4.0-5.2); Red Cell Distribution Width 15.4 % (11.6-14.8); White Blood Cell Count 8.3 X10^3/uL (4.5-11.0)
[2019-02-04 06:35] LABS: Alanine Aminotransferase 93 IU/L (9-52); Albumin 2.8 g/dL (3.5-5.0); Albumin Globulin Ratio 1.1 (1.0-2.8); Alkaline Phosphatase 161 U/L (38-126); Aspartate Aminotransferase 93 IU/L (14-36); Bilirubin Total 0.6 mg/dL (0.2-1.3); Blood Urea Nitrogen 6 mg/dL (7-17); Calcium 8.6 mg/dL (8.4-10.2); Carbon Dioxide 26 mmol/L (22-32); Chloride 104 mmol/L (98-107); Estimated Glomerular Filt Rate > 60.0 mL/min (>60); Globulin 2.6 g/dL (1.7-4.1); Glucose 212 mg/dL (70-100); HEMOLYSIS < 15 (0-50); Lipase 256 U/L (23-300); Sodium 136 mmol/L (137-145); Total Protein 5.4 g/dL (6.3-8.2)
[2019-02-04 06:36] LABS: Magnesium 1.8 mg/dL (1.6-2.3)
--- NOTE | 2019-02-04 08:56 | PM.PN.1 ---
Subjective Subjective Date Patient Seen: 02/04/19 Time Patient Seen: 08:56 Interval history: Patient sitting up in bed eating cream of wheat. Full liquid tray provided patient in error. Only had a few bites. Tolerating clears well. No complaints of abdominal pain or shortness of breath. Exam Vital Signs (past 8 hours): - 02/04/19 03:27 02/04/19 05:30 02/04/19 08:00 Temperature 97.7 F 97.6 F Pulse Rate 80 79 Respiratory Rate 19 14 Blood Pressure 100/60 112/67 Pulse Oximetry 98 94 98 Oxygen Delivery Method Room Air Oxygen Flow Rate 0 Narrative Exam Narrative: Middle-aged female who looks older than stated age in no obvious distress lying in her hospital bed with obvious cushingoid changes in her face, pale HEENT-normocephalic, persistant dark ring circling the right zygomatic arch Lungs-good breath sounds without wheezes Heart-regular rate and rhythm no murmur Abdomen-positive bowel tones soft, no tenderness to palpation, obesity limits exam Extremities-4+ edema along both shins, warm, SCDs in place, bruising both arms Objective Labs Result Diagrams: 02/04/19 06:10 02/04/19 06:10 Labs: Laboratory Results - last 24 hr 02/04/19 02/04/19 02/04/19 06:10 06:10 06:10 WBC 8.3 RBC 3.28 L Hgb 11.3 L Hct 33.0 L MCV 100.8 H MCH 34.3 H MCHC 34.1 RDW 15.4 H Plt Count 199 Neut % (Auto) 83.8 H Lymph % (Auto) 8.6 L [place] % (Auto) 5.8 Eos % (Auto) 1.0 L Baso % (Auto) 0.8 Neut # (Auto) 7000 Lymph # (Auto) 700 L [place] # (Auto) 500 Eos # (Auto) 100 Baso # (Auto) 100 Sodium 136 L Potassium 3.0 L Chloride 104 Carbon Dioxide 26 BUN 6 L Creatinine 0.60 Estimated GFR > 60.0 BUN/Creatinine Ratio 10.0 Glucose 212 H Calcium 8.6 Magnesium 1.8 Total Bilirubin 0.6 AST 93 H ALT 93 H Alkaline Phosphatase 161 H Total Protein 5.4 L Albumin 2.8 L Globulin 2.6 Albumin/Globulin Ratio 1.1 Lipase 256 Assessment & Plan Assessment & Plan narrative: 1. GI-no clear etiology for elevated lipase and evidence of colitis on imaging. Had unremarkable EGD yesterday and colonoscopy showing proctitis as well as a polyp. biopsies are pending. Will need to have formal GI consultation elsewhere to adress the pancreatitis. Appreciate surgery following for her colitis. Continue per their recommendations with steroid enemas. 2. Hypokalemia/magnesium-Will replete both. 3. Edema. Elevate legs, SCD's and IV furosemide today. Low albumin contributing. Will ask dietary consult. Ensure clear would be good to start. 4. Diabetes- Will return to her morning lantus dose today since she will be having liquids. The dexamethasone of course is complicating this as well. 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 Oncology wants her to continue on dexamethasone without other further therapies. 6. Seizure disorder-continue with Keppra as replacement for Dilantin for which she had significant difficulty and side effects previously 7. DVT prophylaxis-patient not a good candidate for Lovenox given the proctitis. She also has obvious bruising from multiple falls. She has SCD's in place. 8. Disposition-[facility] has agreed to accept patient. Have discussed this with her. Unclear who her dpoa is at this time. Mother is in agreement with [facility] discharge. Quality VTE Deep Vein Thrombosis/Pulmonary Embolism Present on Admission: No
[2019-02-04] MEDS: FLUCONAZOLE 100 MG TABLET 200 MG PO (09:15)
[2019-02-04] MEDS: CITALOPRAM 20 MG TABLET PO (09:16)
[2019-02-04] MEDS: dexAMETHasone 1 MG TABLET 2 MG PO ×2 (09:16→21:30)
[2019-02-04] MEDS: FISH OIL 1,000 MG CAPSULE 1000 MG PO (09:16)
[2019-02-04] MEDS: levETIRAcetam 250 MG TABLET 500 MG PO (09:16)
[2019-02-04] MEDS: INSULIN ASPART 100 UNIT/ML INSULN PEN SUBCUT ×4 (09:20→21:30)
[2019-02-04] MEDS: INSULIN GLARGINE 100 UNIT/ML 10ML VIAL 70 UNIT SUBCUT (09:23)
[2019-02-04] MEDS: PANTOPRAZOLE 40 MG VIAL IV (09:26)
[2019-02-04] MEDS: SODIUM CHLORIDE 0.9% FLUSH 10 ML IV ×2 (09:26→20:58)
[2019-02-04] MEDS: FUROSEMIDE 40 MG/4 ML VIAL IV ×2 (09:41→21:32)
[2019-02-04] MEDS: MAGNESIUM SULFATE 2 GM/50 ML PIGGYBACK IV (09:41)
[2019-02-04] MEDS: HYDROCORTISONE 100 MG/60 ML ENEMA PR ×2 (11:05→21:29)
[2019-02-04] MEDS: POTASSIUM CHLORIDE 40 MEQ in SODIUM CHLORIDE 0.9% 500 ML 130 ML IV (11:57)
--- NOTE | 2019-02-04 15:46 | CM.DPNOTE ---
DCP Cont: Reviewed chart. Spoke w/Dr Yun this morning. MD and pt's family hopeful pt can DC to SNF and Dr Yun asks this SKIP OPERATOR to connect pt and her mom today to review DCP together. Placed call to October at [facility]; she explains that w/pt's medical management as is, there is no qualifying diagnosis that would skill her for a Senior Living stay. Reviewed chart to find that pt scored 9/30 in the SLUMS exam= Dementia/Severe Cognitive Decline Met w/pt and her brother Ajit at bedside today, asked who is DPOA? Ajit explains he does not know of legal ppk assigning his mother but the entire family looks to her as the point person and decision maker re: pt's medical needs and management. Pt has adult children that live throughout the country (?) This SKIP OPERATOR explained that in [facility], if there isn't a DPOA assigned, pt's adult children would be first in the DPOA hierarchy, then living parents and then siblings. Ajit will speak to his mom about this. Ajit asks if pt could DC to a SNF in [place] so he can visit more often? Explained to Ajit that pt may not qualify for SNF and may need to return home to [facility], introduced the idea of Palliative Care for pt (?) Ajit explains it is their family's goal to get pt to [place] to be cared for by her parents but pt would need to be much more stable for that trip. Updated Violet at [facility]: pt is not meeting criteria, according to October at [facility], for DC to SNF under Medicare regulations. Asked Violet if pt seemed to be a failure to thrive/Palliative candidate? with so many recent ER visits and admissions.. Violet unable to answer this question. Violet explained there will be an renal medicine specialist needed at bedside which will likely be available morning. Following closely for coordination of the safest plan available to pt at this time. MERRY Rangel
[2019-02-04] MEDS: FOLIC ACID 0.4 MG TABLET PO (17:08)
[2019-02-04] MEDS: MELATONIN 3 MG TABLET 6 MG PO (21:10)
[2019-02-04] MEDS: CLOTRIMAZOLE 1% CRM 30 GM 1 APPLIC TOP (21:11)
[2019-02-04] MEDS: levETIRAcetam 250 MG TABLET 750 MG PO (21:29)
[2019-02-05] VITALS (7 sets, daily range): BP systolic 106–138; BP diastolic 55–83; PULSE 64–81; RESP 16–18; TEMP 36.2–37.2; O2SAT 94–98
[2019-02-05] MEDS: LIDOCAINE 1% 20 ML (00:10)
[2019-02-05] MEDS: POTASSIUM CHLORIDE 40 MEQ in SODIUM CHLORIDE 0.9% 500 ML 130 ML IV (00:10)
--- NOTE | 2019-02-05 04:11 | PC.NURSE ---
Financial Specialist Note: 0030: Awake, resting in bed. Vital signs stable. IV in lt AC intact but does not flush, and noted to be leaking at insertion; discontinued. Pt agreeable to having a new IV started if skin is numbed first. 0100: IV re-started in lt forearm, and K-rider infusion started. 0400: Sleeping; respirations unlabored.
[2019-02-05 07:09] LABS: Add Manual Diff / Slide Review NO; Basophils Absolute Auto 100 /uL (0-100); Basophils Percent Auto 0.8 % (0-2); Eosinophils Absolute Auto 0 /uL (0-450); Eosinophils Percent Auto 0.3 % (2-4); Hematocrit 37.9 % (36-46); Hemoglobin 12.7 g/dL (12.0-16.0); Lymphocytes Absolute Auto 900 /uL (1100-4500); Lymphocytes Percent Auto 12.3 % (25-40); Mean Corpuscular HGB Conc 33.6 % (30-36); Mean Corpuscular Hemoglobin 33.9 PG (26-34); Mean Corpuscular Volume 100.9 fL (80-100); Monocytes Absolute Auto 500 /uL (0-900); Neutrophils Absolute Auto 6200 /uL (1500-7000); Neutrophils Percent Auto 80.6 % (50-75); Platelet Count 113 X10^3/uL (150-400); Red Blood Cell Count 3.76 X10^6/uL (4.0-5.2); Red Cell Distribution Width 15.3 % (11.6-14.8); White Blood Cell Count 7.7 X10^3/uL (4.5-11.0)
[2019-02-05 07:14] LABS: BUN Creatinine Ratio 8.3 (6-22); Blood Urea Nitrogen 5 mg/dL (7-17); Calcium 8.6 mg/dL (8.4-10.2); Carbon Dioxide 29 mmol/L (22-32); Chloride 102 mmol/L (98-107); Estimated Glomerular Filt Rate > 60.0 mL/min (>60); Glucose 232 mg/dL (70-100); HEMOLYSIS < 15 (0-50); Magnesium 1.6 mg/dL (1.6-2.3); Potassium 3.8 mmol/L (3.4-5.1); Sodium 136 mmol/L (137-145)
--- NOTE | 2019-02-05 08:38 | P.PN_ITS ---
Subjective Subjective Date Patient Seen: 02/05/19 Time Patient Seen: 08:38 Interval history: Since last seen patient is essentially unchanged. Patient did have her upper and lower endoscopy which was remarkable only for a significant proctitis with biopsy/pathology still pending. Been started on steroid enemas Blood sugars have been elevated. Still not back on usual insulin dose Electrolytes are improved with replacement Continues to be incontinent of bowel and bladder Plans now for probable discharge to [facility] Exam Vital Signs (past 8 hours): - 02/05/19 06:00 Temperature 97.4 F L Pulse Rate 64 Respiratory Rate 16 Blood Pressure 118/55 L Pulse Oximetry 97 Oxygen Delivery Method Room Air Oxygen Flow Rate 0 Narrative Exam Narrative: Unchanged from previous Objective Labs Result Diagrams: 02/05/19 06:40 02/05/19 06:40 Labs: Laboratory Results - last 24 hr 02/05/19 02/05/19 06:40 06:40 WBC 7.7 RBC 3.76 L Hgb 12.7 Hct 37.9 MCV 100.9 H MCH 33.9 MCHC 33.6 RDW 15.3 H Plt Count 113 L Neut % (Auto) 80.6 H Lymph % (Auto) 12.3 L [place] % (Auto) 6.0 Eos % (Auto) 0.3 L Baso % (Auto) 0.8 Neut # (Auto) 6200 Lymph # (Auto) 900 L [place] # (Auto) 500 Eos # (Auto) 0 Baso # (Auto) 100 Sodium 136 L Potassium 3.8 Chloride 102 Carbon Dioxide 29 BUN 5 L Creatinine 0.60 Estimated GFR > 60.0 BUN/Creatinine Ratio 8.3 Glucose 232 H Calcium 8.6 Magnesium 1.6 Assessment & Plan Assessment & Plan narrative: 1. GI-still awaiting pathology report regarding possible etiologies for proctitis. Only thing I can think of is some medication reaction causing something like a collagenous colitis or other microscopic colitis. She is on chronic long-term high-dose steroids and this is an unusual distribution for vascular colitis etc. Therefore other etiologies seem less likely. I agree with the steroid enemas will continue those for now. No evidence of recurrent pancreatitis at this point at least clinically. Patient with chronically elevated lipase and LFTs for the last several months anyway. Will need full GI evaluation which cannot be accomplished during this hospitalization without transfer to an alternate facility and given her clinical improvement, but does not seem appropriate at this point. 2. Diabetes-patient is in need of more insulin. We will return her to doses closer to her original doses. Recall she is now off of her oral hypoglycemics as well so her insulin requirements may increase slightly. 3. Renal/electrolytes/nutrition-patient eating normally. Electrolytes now normalized. Will switch back to oral potassium replacement given that she is not being prepped for endoscopy etc. 4. Seizure disorder-continue current antiepileptic medications 5. Disposition-I do believe patient will be better served by moving to [facility]. She clearly has had a failure to thrive with ongoing medical issues at her current assisted living facility which does not seem adequate for her overall needs. She has been multiple times in the ER and/or hospitalized. A lot of these complaints have been GI but there been other issues as well. Patient's family is in agreement with this. Difficult to find actual skilled needs but I believe her care requirements dictate that she be placed in a higher level of care than her current assisted living facility, and I think her repeated hospitalizations ER visits etc examples of her failure to thrive would be properly cared for in the alternative situation. Family is requesting placement in [place] for geographic proximity and bedside evaluation to occur this morning per care management notes. Note: Greater than 30 minutes was spent evaluating the patient on the floor, including examining the patient, discussing clinical course with clinical and nursing staff, reviewing clinical course in the computer, preparing documentation and writing orders for continued management of care, discussing status with family as appropriate, reviewing plans for the next 24 hours with both patient/family and nursing staff as appropriate. Quality VTE Deep Vein Thrombosis/Pulmonary Embolism Present on Admission: No
--- NOTE | 2019-02-05 09:01 | CM.DPNOTE ---
DCP Cont: Spoke w/Ajay Lazo yesterday at length, P# [phone], he is pt's coordinator through Health Home program through [facility]. Ajay aware of the difficulties related to pt's complicated medical needs, DC needs, and increase in readmissions. One of the primary goals of the Health Home Program is to decrease readmissions and visits to the ER. Ajay explained he would be taking efforts to coordinate a care conference between pt, family and medical providers to discuss goals of care and what is working, as well as not working well, in caring for pt and keeping her safe and out of the ER. This ASSEMBLY ASSOCIATE grateful for any input from Ajay and updated him on DC planning efforts. Pt may need to return to [facility] today if there is no medical or functional need for custodial and skilled therapies at SNF. NISSA
[2019-02-05] MEDS: INSULIN ASPART 100 UNIT/ML INSULN PEN SUBCUT ×4 (09:57→21:13)
[2019-02-05] MEDS: dexAMETHasone 1 MG TABLET 2 MG PO ×2 (09:58→21:12)
[2019-02-05] MEDS: CITALOPRAM 20 MG TABLET PO (09:58)
[2019-02-05] MEDS: CLOTRIMAZOLE 1% CRM 30 GM 1 APPLIC TOP ×2 (09:58→21:15)
[2019-02-05] MEDS: FLUCONAZOLE 100 MG TABLET 200 MG PO (09:59)
[2019-02-05] MEDS: FUROSEMIDE 40 MG/4 ML VIAL IV ×2 (10:00→21:26)
[2019-02-05] MEDS: HYDROCORTISONE 100 MG/60 ML ENEMA PR ×2 (10:01→21:12)
[2019-02-05] MEDS: levETIRAcetam 250 MG TABLET 500 MG PO (10:02)
[2019-02-05] MEDS: FISH OIL 1,000 MG CAPSULE 1000 MG PO (10:03)
[2019-02-05] MEDS: INSULIN GLARGINE 100 UNIT/ML 10ML VIAL 70 UNIT SUBCUT (10:03)
[2019-02-05] MEDS: PANTOPRAZOLE 40 MG VIAL IV (10:04)
[2019-02-05] MEDS: SODIUM CHLORIDE 0.9% FLUSH 10 ML IV ×2 (10:07→21:15)
--- NOTE | 2019-02-05 11:23 | PC.NURSE ---
Patient resting in bed, brief changed and assessment complete. Patient denies pain, SOB, N/V at this time. Patient administered rectal enema medication, patient tolerated procedure well. IV site is patent, though LUE is more edematous than her RUE. Patient has 3+ pitting edema in her extremities. Call light in reach. Patient denies further needs at this time.
--- NOTE | 2019-02-05 15:51 | CM.DPC ---
Assisting Parris KILN DOOR BUILDER to move forward with pts. disposition... Called pt. mom (Mackenzie Talavera [phone]) to assess her thoughts about rehab versus assisted living options. No answer. Contacted [facility] and Starr said no because they have no female max capacity beds right now - only male. Contacted [facility] and they do have a bed for her if she is discharged tomorrow. Will contact us in am and let us know what paperwork to fax. Vladislav is also optimistic about acceptance tomorrow if she is discharged. Their admin is in at 9am so contact her ([phone]) if we want a bed for tomorrow discharge.
[2019-02-05] MEDS: POTASSIUM CHLORIDE 20 MEQ TAB 40 MEQ PO (16:51)
[2019-02-05] MEDS: FOLIC ACID 0.4 MG TABLET PO (16:51)
[2019-02-05] MEDS: levETIRAcetam 250 MG TABLET 750 MG PO (21:12)
[2019-02-05] MEDS: MELATONIN 3 MG TABLET 6 MG PO (21:15)
[2019-02-05] MEDS: INSULIN GLARGINE 100 UNIT/ML 3ML PEN 50 UNIT SUBCUT (21:26)
[2019-02-06] VITALS (10 sets, daily range): BP systolic 96–115; BP diastolic 50–70; PULSE 67–75; RESP 16–20; TEMP 35.9–37.1; O2SAT 94–98
--- NOTE | 2019-02-06 05:54 | PC.NURSE ---
Graduate Fellow Note: 0030: Resting in bed. Vital signs stable. IV in place in lt forearm. Pt denies pain or discomfort. Assisted to turn and reposition.
--- NOTE | 2019-02-06 07:48 | PM.DS.1 ---
History of Present Illness History of Present Illness Date Patient Seen: 02/06/19 Time Patient Seen: 07:49 Chief complaint: ABD pain Narrative: Patient minute the emergency room last night for abdominal pain. Patient recently was here on hospital for pancreatitis, dehydration, and urinary tract infection. Treated with Levaquin and discharged yesterday on her final dose of medication. Her pancreatitis symptoms had resolved. She [facility] She returned there yesterday afternoon and felt fine for several hours however she soon developed severe of midepigastric abdominal pain that progressed during the course of the day. The to the point of the worse than ever. Also has some nausea. Secondary she has a loose stools 1 of which was bloody. Because of the above 2 symptoms she was transferred on also emergency room where she is evaluated. In the emergency room she is found have a markedly elevated lipase additionally had a guaiac-positive stool. She was it readmitted for pancreatitis evaluation of her red rectal bleeding. Patient had a CT the abdomen and in the emergency room that showed questionable colitis and this is a tertiary diagnosis on upon admission. {from Dr. Dias's history and physical January 31, 2019} Discharge Providers Provider Date of admission: 01/31/19 00:05 Discharge Date: 02/07/19 Primary care physician: Naveen Vaughn MD Consults: 01/31/19 08:18 Consult to Discharge Planning Routine Comment: Consult to Scientific Informatics Leader Routine Comment: 01/31/19 08:23 Consult to Physician Routine Comment: Consulting Provider: Tyson Carbajal Reason for consultation: rectal bleed/colitis Has provider been notified: Yes 01/31/19 13:01 Consult to Occupational Therapy Evaluate & Treat Comment: Physician Instructions: SLUMS to define cognitive dysfunction 02/01/19 09:52 Consult to Physical Therapy Evaluate & Treat Comment: oob Physician Instructions: Evaluate and Treat Discharge provider: Naveen Vaughn MD Summary Hospital Course Discharge Diagnosis: 1. Acute pancreatitis of uncertain etiology, resolved at time of admission clinically although biochemically still present with elevated lipase 2. Diarrhea/colitis-evidence of proctitis on colonoscopy etiology uncertain at time of discharge, asymptomatic at time of discharge 3. Acute hypokalemia, resolved 4. Type 2 diabetes with poor control/uncontrolled 5. Seizure disorder 6. Oligodendroglioma 7. Chronic fecal incontinence 8. Chronic urinary incontinence 9. GERD without esophagitis 10. Weakness and inability to walk due to multiple medical issues above 11. Mild cognitive dysfunction/metabolic encephalopathy due to multiple medical issues as above 12. Depression 13. Hyperlipidemia 14. Persistently elevated serum lactate of uncertain etiology Hospital Course: Patient was readmitted on same day of discharge from hospital because of persistent abdominal pain evidence of dehydration poor oral intake etc. Patient lives at assisted living facility. She upon readmission was found to have evidence of colitis with bloody diarrhea etc. She was evaluated and eventually had colonoscopy which showed evidence of significant proctitis but otherwise unremarkable. Biopsies obtained at time of colonoscopy were pending at time of patient discharge. She was started on steroid enemas because of the proctitis. Her symptoms actually resolved prior to her colonoscopy and was doing better. Patient was previously admitted because of pancreatitis of uncertain etiology. Patient was unable to have full evaluation of her biliary tract because of lack of Gastroenterology services available here. However she was clinically asymptomatic and biochemically her lipase was much improved back to her recent baseline which is not normal but minimally elevated. This was not felt to be an active issue during this particular hospitalization Patient has diabetes that is poorly controlled due to dietary indiscretion at her facility and was only marginally controlled at the hospital. She had her oral hypoglycemics discontinued because of the ongoing GI symptoms over concern regarding possible side effects from her oral hypoglycemics. Blood sugar control was less than perfect but she will be discharged back on her usual high dose of insulin and will follow his carefully at her assisted living facility Patient has a brain tumor as above and chronic seizure disorder related to same. This is not felt to be active during this hospitalization. Patient will continue follow with Oncology and Neurology regarding these issues as an outpatient Patient was felt to potentially significantly benefit from higher level of care given her frequent ER visits and readmissions to the hospital for variety of symptoms. Discharge planning staff worked diligently to try and find alternative situation for placement, and hopefully patient will be improved with additional assistance. If patient continues to struggle perhaps some alternative such as more palliative care would be more appropriate. Exam Vital Signs (past 8 hours): - 02/06/19 00:00 02/06/19 05:48 02/06/19 06:00 Temperature 97.8 F Pulse Rate 72 67 Respiratory Rate 16 18 Blood Pressure 114/61 Pulse Oximetry 97 97 94 Oxygen Delivery Method Room Air Oxygen Flow Rate 0 Objective Labs Result Diagrams: 02/05/19 06:40 02/05/19 06:40 Discharge Plan Discharge Plan Patient Disposition: SNF Transfer to: [facility] Under care of provider: MD Tito Consult as needed: Dental, Hearing, Mental health, Podiatry and Vision Discharge Med Rec/Prescriptions Prescriptions: New furosemide 40 mg Tablet 40 mg PO DAILY Qty: 90 RF: 12 Continued cholecalciferol (vitamin D3) 1,000 unit capsule 1,000 unit PO DAILY Qty: 90 RF: 3 ondansetron HCl 4 mg tablet 4 mg PO Q6H PRN (Reason: Nausea And Vomiting) Qty: 30 RF: 0 folic acid 400 mcg tablet 0.4 mg PO QPM Qty: 90 RF: 1 loperamide [Imodium A-D] 2 mg capsule 2 mg PO Q2-4H PRN (Reason: loose stool) Qty: 60 RF: 0 ibuprofen 400 mg tablet 400 mg PO BID Qty: 60 RF: 3 (DME) Easy Touch Pen Needle 30 gauge x 5/16 needle See Dose Instructions .ROUTE .MEDSUPPLY Qty: 100 RF: 1 citalopram 20 mg tablet 20 mg PO DAILY Qty: 90 RF: 1 levetiracetam 250 mg tablet 500 mg PO DAILY Qty: 30 RF: 3 levetiracetam 250 mg tablet 750 mg PO BEDTIME Qty: 30 RF: 3 meclizine 25 mg tablet 25 mg PO Q6H PRN (Reason: dizziness or vertigo) Qty: 90 RF: 3 acetaminophen 325 mg tablet 650 mg PO Q4H PRN (Reason: Fever Or Pain) Qty: 90 RF: 0 melatonin 3 mg tablet 6 mg PO BEDTIME Qty: 180 RF: 0 simvastatin 20 mg tablet 20 mg PO QPM Qty: 90 RF: 1 omeprazole 20 mg capsule,delayed release(DR/EC) 20 mg PO BID Qty: 180 RF: 1 midodrine 5 mg tablet See Rx Instructions .ROUTE .COMPLEX Qty: 90 RF: 0 (DME) lancets [TRUEplus Lancets] 30 gauge misc See Rx Instructions .ROUTE .MEDSUPPLY Qty: 100 RF: 3 dexamethasone 2 mg tablet 2 mg PO BID Qty: 90 RF: 0 aspirin 81 mg Tablet,Delayed Release (Dr/Ec) 81 mg PO DAILY RF: 0 potassium chloride 20 mEq tablet,ER particles/crystals 40 meq PO BID Qty: 180 RF: 3 magnesium oxide 400 mg (241.3 mg magnesium) tablet 400 mg PO BID Qty: 60 RF: 5 Basaglar KwikPen U-100 Insulin 100 unit/mL (3 mL) insulin pen 60 units subcut QPM RF: 0 Basaglar KwikPen U-100 Insulin 100 unit/mL (3 mL) insulin pen 70 units subcut DAILY RF: 0 hydrocortisone acetate 1 % Cream 1 applic TOPICAL Q8H PRN (Reason: Rash) RF: 0 nystatin 100,000 unit/gram powder 1 applic topical PRN PRN (Reason: Rash) RF: 0 omega 3-vqb-oqs-fish oil [Fish Oil] 1,000 mg (120 mg-180 mg) Capsule 1 cap PO DAILY RF: 0 Robitussin Dm 5 ml PO Q4H PRN (Reason: Cough) RF: 0 furosemide 40 mg tablet 40 mg PO DAILY RF: 0 oxycodone-acetaminophen 5-325 mg tablet 1 tab PO BEDTIME PRN (Reason: moderate pain/discomfort) Qty: 30 RF: 0 Follow up/Referrals: Naveen Vaughn MD [Primary Care Provider] - 2 Weeks Discharge Health Status Brief summary of current health status: Admitted with persistent diarrhea and overall failure to thrive. Proctitis found and for several days prior to discharge patient asymptomatic. Diabetes poorly controlled which is baseline Multidrug resistant organism: No MDRO Precautions: [place] Provider Discharge Instructions Diet: Carb-consistent/Diabetic Liquid consistency: Normal/Thin Food texture: Regular Special Rehabilitation Services Reason for rehabilitation: Recovery r/t decondition Rehab type: Physical therapy and Occupational therapy Visit Report/Discharge Packet Instructions: DI for Colon Polypectomy, DI for Hemorrhoids, DI for Diverticulosis, DI for Stomach Polyps Stand Alone Forms: Colonoscopy Result: [facility], Colonoscopy Result: [facility], Colonoscopy Result: [facility], EGD Result: [facility], EGD Result: [facility], EGD Results: IFP Discharge Data Primary Care Provider: Naveen Vaughn Discharges patient from system. Discharge Date/Time: 02/07/19 12:13 Quality VTE Deep Vein Thrombosis/Pulmonary Embolism Present on Admission: No
[2019-02-06] MEDS: POTASSIUM CHLORIDE 20 MEQ TAB 40 MEQ PO ×2 (08:48→16:36)
[2019-02-06] MEDS: PANTOPRAZOLE 40 MG VIAL IV (08:48)
[2019-02-06] MEDS: ACETAMINOPHEN 325 MG TABLET 650 MG PO (08:48)
[2019-02-06] MEDS: INSULIN ASPART 100 UNIT/ML INSULN PEN SUBCUT ×4 (08:50→20:36)
[2019-02-06] MEDS: FUROSEMIDE 40 MG/4 ML VIAL IV ×2 (08:51→20:56)
[2019-02-06] MEDS: CITALOPRAM 20 MG TABLET PO (08:51)
[2019-02-06] MEDS: CLOTRIMAZOLE 1% CRM 30 GM 1 APPLIC TOP ×2 (08:52→20:41)
[2019-02-06] MEDS: FISH OIL 1,000 MG CAPSULE 1000 MG PO (08:52)
[2019-02-06] MEDS: levETIRAcetam 250 MG TABLET 500 MG PO (08:57)
[2019-02-06] MEDS: FLUCONAZOLE 100 MG TABLET 200 MG PO (08:57)
[2019-02-06] MEDS: dexAMETHasone 1 MG TABLET 2 MG PO ×2 (08:58→20:35)
[2019-02-06] MEDS: HYDROCORTISONE 100 MG/60 ML ENEMA PR (08:58)
[2019-02-06] MEDS: SODIUM CHLORIDE 0.9% FLUSH 10 ML IV ×2 (08:59→20:57)
[2019-02-06] MEDS: INSULIN GLARGINE 100 UNIT/ML 10ML VIAL 70 UNIT SUBCUT (09:00)
--- NOTE | 2019-02-06 13:40 | CM.DPC ---
DCP Cont: Faxed recent JUL and RN notes to [facility], Attn: Nyla at fax # [phone] as requested by BUMPER OPERATOR. Informed Nyla that discharge summary was to follow. Fax confirmation scanned in. Ines Mcneil, [facility] Choice Medical CenterBillet Recorder
--- NOTE | 2019-02-06 16:28 | CM.DPNOTE ---
DCP Cont: Alerted Dr Vaughn this morning that pt could DC to SNF today either [facility] or [facility], advised to complete SNF orders. TC to Juliana at [facility], pt accepted, cabulance arranged for p/u this afternoon. No DC orders from Dr Vaughn. Attempted to reach him at clinic. This NETWORK DEVELOPMENT COORDINATOR unable to attempt again throughout the day. Updated Violet at [facility] that pt would be going to SNF/[facility]. Plan cancelled for today, will attempt Saturday. [facility] aware, Nyla will expect a call Saturday morning to coordinate admission. PASRR faxed today. P: DC to [facility] Saturday once DC order done and med list signed. Gillian Goldberg MSW
[2019-02-06] MEDS: FOLIC ACID 0.4 MG TABLET PO (16:36)
[2019-02-06] MEDS: HYDROCORTISONE 1% CREAM 28 GM 1 APPLIC TOP (20:33)
[2019-02-06] MEDS: MELATONIN 3 MG TABLET 6 MG PO (20:34)
[2019-02-06] MEDS: MAGNESIUM OXIDE 400 MG TABLET PO (20:35)
[2019-02-06] MEDS: INSULIN GLARGINE 100 UNIT/ML 3ML PEN 50 UNIT SUBCUT (20:37)
[2019-02-06] MEDS: levETIRAcetam 250 MG TABLET 750 MG PO (20:38)
--- NOTE | 2019-02-06 22:48 | PC.NURSE ---
Pt scheduled to DC tomorrow to [facility] in [place]. She declined enema this shift. PIV in L FA is painful but patent. No IVF running. Brenda area skin pink, no longer red.
[2019-02-07 00:04] VITALS: BP 133/69; PULSE 71; RESP 16; TEMP 36.2; O2SAT 95
[2019-02-07 05:59] VITALS: TEMP 36.1
[2019-02-07 07:00] VITALS: BP 115/87; PULSE 76; RESP 18; TEMP 36.5; O2SAT 99
[2019-02-07 08:10] VITALS: O2SAT 96
[2019-02-07] MEDS: MAGNESIUM OXIDE 400 MG TABLET PO (08:44)
[2019-02-07] MEDS: CITALOPRAM 20 MG TABLET PO (08:44)
[2019-02-07] MEDS: POTASSIUM CHLORIDE 20 MEQ TAB 40 MEQ PO (08:44)
[2019-02-07] MEDS: levETIRAcetam 250 MG TABLET 500 MG PO (08:45)
[2019-02-07] MEDS: CLOTRIMAZOLE 1% CRM 30 GM 1 APPLIC TOP (08:47)
[2019-02-07] MEDS: dexAMETHasone 1 MG TABLET 2 MG PO (08:47)
[2019-02-07] MEDS: INSULIN ASPART 100 UNIT/ML INSULN PEN SUBCUT (08:48)
--- NOTE | 2019-02-07 09:24 | P.DS_ITS ---
History of Present Illness History of Present Illness Date Patient Seen: 02/07/19 Time Patient Seen: 09:51 Chief complaint: ABD pain Narrative: Patient is a 58 yo female with morbid obesity, uncontrolled diabetes, h/o oligodenroglioma, seizure disorder, and chronic diarrhea who is a resident of [facility]. She was admitted recently for acute versus chronic pancreatitis dehydration as well as UTI. She improved with antibiotics and IV fluids. She discharge back to [facility] only to return to the ED hours later with worsening abdominal pain and bloody stools. Please refer to Dr. Dias's H&P for details. Discharge Providers Provider Date of admission: 01/31/19 00:05 Discharge Date: 02/07/19 Primary care physician: Naveen Vaughn MD Consults: 01/31/19 08:18 Consult to Discharge Planning Routine Comment: Consult to Work And Family Life Consultant Routine Comment: 01/31/19 08:23 Consult to Physician Routine Comment: Consulting Provider: Tyson Carbajal Reason for consultation: rectal bleed/colitis Has provider been notified: Yes 01/31/19 13:01 Consult to Occupational Therapy Evaluate & Treat Comment: Physician Instructions: SLUMS to define cognitive dysfunction 02/01/19 09:52 Consult to Physical Therapy Evaluate & Treat Comment: oob Physician Instructions: Evaluate and Treat Discharge provider: Erlinda Jose DO Summary Hospital Course Discharge Diagnosis: Acute pancreatitis of uncertain etiology, resolved at time of admission clinically although biochemically still present with elevated lipase Diarrhea/colitis-evidence of proctitis on colonoscopy etiology uncertain at time of discharge, asymptomatic at time of discharge Acute hypokalemia, resolved Type 2 diabetes with poor control/uncontrolled Seizure disorder Oligodendroglioma Chronic fecal incontinence Chronic urinary incontinence GERD without esophagitis Weakness and inability to walk due to multiple medical issues above Mild cognitive dysfunction/metabolic encephalopathy due to multiple medical issues as above Depression Hyperlipidemia Persistently elevated serum lactate of uncertain etiology Hospital Course: Please refer to Dr. Vaughn' is discharge summary from 02/06/19 for the details of her hospitalization. Patient stayed an additional night due to complications with her discharge yesterday. She has had no changes in her medical status since yesterday. She will discharge to [facility] today. This m orning she reports feeling much better and has no complaints. Denies abdominal pain. She is tolerating a diet without issues. Time Spent with Patient Time spent: Less than 30 minutes Exam Vital Signs (past 8 hours): - 02/07/19 05:59 02/07/19 07:00 Temperature 97.0 F L 97.7 F Pulse Rate 76 Respiratory Rate 18 Blood Pressure 115/87 Pulse Oximetry 99 Oxygen Delivery Method Room Air Oxygen Flow Rate 0 Narrative Exam Narrative: General: Morbidly obese, chronically ill-appearing older woman, NAD. Cushingoid appearance. HEENT: NCAT, EOMI, moist oral mucosa CV: Regular rate and rhythm, no murmurs, rubs or gallops Lungs: CTAB, no wheezes, rales, or rhonchi Abdomen: Obese abdomen. Soft, nontender; bowel tones active; no hepatosplenomegaly Extremities: Warm, 3+ pitting edema bilateral lower extremities (not new) Objective Labs Result Diagrams: 02/05/19 06:40 02/05/19 06:40 Discharge Plan Discharge Plan Patient Disposition: SNF Transfer to: [facility] Under care of provider: MD Tito Consult as needed: Dental, Hearing, Mental health, Podiatry and Vision Discharge Med Rec/Prescriptions Prescriptions: New furosemide 40 mg Tablet 40 mg PO DAILY Qty: 90 RF: 12 Continued cholecalciferol (vitamin D3) 1,000 unit capsule 1,000 unit PO DAILY Qty: 90 RF: 3 ondansetron HCl 4 mg tablet 4 mg PO Q6H PRN (Reason: Nausea And Vomiting) Qty: 30 RF: 0 folic acid 400 mcg tablet 0.4 mg PO QPM Qty: 90 RF: 1 loperamide [Imodium A-D] 2 mg capsule 2 mg PO Q2-4H PRN (Reason: loose stool) Qty: 60 RF: 0 ibuprofen 400 mg tablet 400 mg PO BID Qty: 60 RF: 3 (DME) Easy Touch Pen Needle 30 gauge x 5/16 needle See Dose Instructions .ROUTE .MEDSUPPLY Qty: 100 RF: 1 citalopram 20 mg tablet 20 mg PO DAILY Qty: 90 RF: 1 levetiracetam 250 mg tablet 500 mg PO DAILY Qty: 30 RF: 3 levetiracetam 250 mg tablet 750 mg PO BEDTIME Qty: 30 RF: 3 meclizine 25 mg tablet 25 mg PO Q6H PRN (Reason: dizziness or vertigo) Qty: 90 RF: 3 acetaminophen 325 mg tablet 650 mg PO Q4H PRN (Reason: Fever Or Pain) Qty: 90 RF: 0 melatonin 3 mg tablet 6 mg PO BEDTIME Qty: 180 RF: 0 simvastatin 20 mg tablet 20 mg PO QPM Qty: 90 RF: 1 omeprazole 20 mg capsule,delayed release(DR/EC) 20 mg PO BID Qty: 180 RF: 1 midodrine 5 mg tablet See Rx Instructions .ROUTE .COMPLEX Qty: 90 RF: 0 (DME) lancets [TRUEplus Lancets] 30 gauge misc See Rx Instructions .ROUTE .MEDSUPPLY Qty: 100 RF: 3 dexamethasone 2 mg tablet 2 mg PO BID Qty: 90 RF: 0 aspirin 81 mg Tablet,Delayed Release (Dr/Ec) 81 mg PO DAILY RF: 0 potassium chloride 20 mEq tablet,ER particles/crystals 40 meq PO BID Qty: 180 RF: 3 magnesium oxide 400 mg (241.3 mg magnesium) tablet 400 mg PO BID Qty: 60 RF: 5 Basaglar KwikPen U-100 Insulin 100 unit/mL (3 mL) insulin pen 60 units subcut QPM RF: 0 Basaglar KwikPen U-100 Insulin 100 unit/mL (3 mL) insulin pen 70 units subcut DAILY RF: 0 hydrocortisone acetate 1 % Cream 1 applic TOPICAL Q8H PRN (Reason: Rash) RF: 0 nystatin 100,000 unit/gram powder 1 applic topical PRN PRN (Reason: Rash) RF: 0 omega 9-wyj-lah-fish oil [Fish Oil] 1,000 mg (120 mg-180 mg) Capsule 1 cap PO DAILY RF: 0 Robitussin Dm 5 ml PO Q4H PRN (Reason: Cough) RF: 0 furosemide 40 mg tablet 40 mg PO DAILY RF: 0 oxycodone-acetaminophen 5-325 mg tablet 1 tab PO BEDTIME PRN (Reason: moderate pain/discomfort) Qty: 30 RF: 0 Follow up/Referrals: Naveen Vaughn MD [Primary Care Provider] - 2 Weeks Discharge Health Status Brief summary of current health status: Admitted with persistent diarrhea and overall failure to thrive. Proctitis found and for several days prior to discharge patient asymptomatic. Diabetes poorly controlled which is baseline Multidrug resistant organism: No MDRO Precautions: [place] Provider Discharge Instructions Diet: Carb-consistent/Diabetic Liquid consistency: Normal/Thin Food texture: Regular Special Rehabilitation Services Reason for rehabilitation: Recovery r/t decondition Rehab type: Physical therapy and Occupational therapy Visit Report/Discharge Packet Instructions: DI for Colon Polypectomy, DI for Hemorrhoids, DI for Diverticulosis, DI for Stomach Polyps Stand Alone Forms: Colonoscopy Result: [facility], Colonoscopy Result: [facility], Colonoscopy Result: [facility], EGD Result: [facility], EGD Result: [facility], EGD Results: IFP Discharge Data Primary Care Provider: Naveen Vaughn Discharges patient from system. Discharge Date/Time: 02/07/19 12:13 Quality VTE Deep Vein Thrombosis/Pulmonary Embolism Present on Admission: No
[2019-02-07] MEDS: INSULIN GLARGINE 100 UNIT/ML 10ML VIAL 70 UNIT SUBCUT (09:36)
[2019-02-07] MEDS: HYDROCORTISONE 1% CREAM 28 GM 1 APPLIC TOP (09:40)
[2019-02-07] MEDS: HYDROCORTISONE 100 MG/60 ML ENEMA PR (09:42)
[2019-02-07] MEDS: FISH OIL 1,000 MG CAPSULE 1000 MG PO (09:42)
[2019-02-07] MEDS: PANTOPRAZOLE 40 MG VIAL IV (09:42)
[2019-02-07] MEDS: FLUCONAZOLE 100 MG TABLET 200 MG PO (09:43)
[2019-02-07] MEDS: FUROSEMIDE 40 MG/4 ML VIAL IV (09:43)
[2019-02-07] MEDS: SODIUM CHLORIDE 0.9% FLUSH 10 ML IV (09:43)
[2019-02-07 11:40] VITALS: BP 114/70; PULSE 73; RESP 18; TEMP 36.8; O2SAT 98
--- NOTE | 2019-02-07 11:42 | CM.DPC ---
DCP: Contacted Nyla at [facility] to set up for patients arrival this afternoon. [facility] is able to accept patient after noon today 02/07/2019. Spoke with Dr. Jose who is covering for Dr. Vaughn she is putting in patients discharge summary and orders. Due to patients generalized weakness and instability to safely travel by wheel chair patient will be transported to [facility] by BLS ambulance. Ambulance Medical Necessity form filled out and signed by . [facility] was called at [phone] and an ambulance was set up for orange picker from [facility] at noon. Patient Signed the MIMM 02/07/2019 prior to discharge. Clinicals faxed to [facility] 02/07/2019. PASRR filled out and faxed to [facility] Patients Mother, Mackenzie, called at [phone] and informed of plan to d/c to [facility] today at noon. Mary Molina RN
--- NOTE | 2019-02-07 12:14 | PC.NURSE ---
1110 Gave telephone report to Lucie at [facility].
== END 2019-02-07 12:13 | DRG 395 ==
LOC: ED 23:55 → AC 01-31 07:11
PROVIDERS: Family Medicine; Specialist; Admitting Provider Family Medicine; Emergency Provider Emergency Medicine; PCP Internal Medicine; Visit Provider Internal Medicine
PROC: 0DJ08ZZ Inspection of Upper Intestinal Tract, Via Natural or Artificial Opening Endoscopic (ICD-10-PCS; CPT 43235; principal; 2019-02-03 15:00)
PROC: 0DJD8ZZ Inspection of Lower Intestinal Tract, Via Natural or Artificial Opening Endoscopic (ICD-10-PCS; CPT 45378; 2019-02-03 15:00)
DX: K62.89 Other specified diseases of anus and rectum (principal); K52.9 Noninfective gastroenteritis and colitis, unspecified; R62.7 Adult failure to thrive
CPT/HCPCS: 36415; 80048; 80053; 82962; 83690; 83735; 85025; 85610; 86850; 86900; 86901; 87507; 94760; 97165; 99283; A9270; C9113; J0330; J1940; J2405; J2704; J3010; J3480

== ENCOUNTER 2019-03-07 12:32 | Observation (INO) | payer MEDICARE, MEDICAID, SELFPAY ==
[2019-01-31 01:10] VITALS: BMI 48.7
--- NOTE | 2019-03-07 12:32 | ED_ITS ---
HPI - Abdominal Pain <Mariah Mcdonald, - Last Filed: 03/10/19 07:24> General Chief Complaint: Abdominal Pain Stated Complaint: Lower Abd Pain Time Seen by Provider: 03/07/19 12:32 Source: patient and EMS Mode of arrival: EMS Limitations: no limitations History of Present Illness HPI narrative: This is a 58-year-old comes to the emergency department complaint of abdominal pain patient states that she needs to ?take a shit.? There was report from the care facility that was bright red blood in her diaper, when asked patient does not believe there is, she denies any melena although I did ask if she normally sees her stool. She states she does. She complains of some chest discomfort and shortness of breath. she also complains of abdominal pain. She states this all started today. She was recently admitted for pancreatitis as well as abdominal pain and rectal bleeding and was noted to have a proctitis on colonoscopy. She denies any nausea or vomiting. She denies any diarrhea at this time. Patient denies any fevers or chills. Related Data Home Medications Medication Instructions Recorded Confirmed Robitussin Dm 5 ml PO Q4H PRN 12/09/18 03/07/19 nystatin 1 applic TOPICAL PRN PRN 12/09/18 03/07/19 furosemide 40 mg PO DAILY 02/02/19 03/07/19 fluconazole [Diflucan] 100 mg PO DAILY 03/07/19 03/07/19 Previous Rx's Medication Instructions Recorded ondansetron HCl 4 mg tablet 4 mg PO Q6H PRN #30 tab 05/29/18 loperamide 2 mg capsule 2 mg PO Q2-4H PRN #60 cap 10/17/18 pen needle, diabetic 30 gauge x #100 each 11/20/1809/18 acetaminophen 325 mg tablet 650 mg PO Q4H PRN #90 tab 12/12/18 meclizine 25 mg tablet 25 mg PO Q6H PRN #90 tab 12/12/18 lancets 30 gauge #100 each 02/02/19 aspirin 81 mg tablet,delayed 81 mg PO DAILY #30 tab 03/02/19 release atorvastatin 10 mg tablet 10 mg PO DAILY #30 tab 03/02/19 cholecalciferol (vitamin D3) 1,000 1,000 unit PO DAILY #90 cap 03/02/19 unit capsule citalopram 20 mg tablet 20 mg PO DAILY #90 tab 03/02/19 dexamethasone 2 mg tablet 2 mg PO BID #60 tab 03/02/19 folic acid 400 mcg tablet 0.4 mg PO QPM #90 tab 03/02/19 hydrocortisone acetate 1 % topical 1 applic TOPICAL Q8H PRN #57 gram 03/02/19 cream ibuprofen 400 mg tablet 400 mg PO BID #60 tab 03/02/19 insulin aspart U-100 100 unit/mL 3 unit SUBCUT TID #15 ml 03/02/19 subcutaneous cartridge insulin glargine 100 unit/mL (3 65 unit SUBCUT DAILY #15 ml 03/02/19 mL) subcutaneous pen insulin glargine 100 unit/mL (3 70 unit SUBCUT QPM #15 ml 03/02/19 mL) subcutaneous pen levetiracetam 250 mg tablet 500 mg PO DAILY #60 tab 03/02/19 levetiracetam 250 mg tablet 750 mg PO BEDTIME #90 tab 03/02/19 magnesium oxide 400 mg (241.3 mg 400 mg PO BID #60 tab 03/02/19 magnesium) tablet melatonin 3 mg tablet 6 mg PO BEDTIME #180 tab 03/02/19 midodrine 5 mg tablet 5 mg PO BID #30 tab 03/02/19 omega [id number]-fish oil 1,000 mg 1 cap PO DAILY #30 cap 03/02/19 (120 mg-180 mg) capsule omeprazole 20 mg capsule,delayed 20 mg PO BID #180 cap 03/02/19 release potassium chloride 20 mEq 40 meq PO BID #180 tab 03/02/19 tablet,extended release(part/cryst) glucagon (human recombinant) 1 mg See Rx Instructions .ROUTE 03/03/19 solution for injection .COMPLEX #1 each oxycodone-acetaminophen 1 tab PO BEDTIME PRN #30 tab 03/09/19 wheat dextrin [Benefiber Sugar 1 packet PO DAILY #28 each 03/09/19 Free (dextrin)] Allergies Allergy/AdvReac Type Severity Reaction Status Date / Time adhesive tape Allergy Unknown Verified 01/14/19 20:39 Penicillins Allergy Unknown Verified 01/14/19 20:39 silicone Allergy Unknown Verified 01/14/19 20:39 zonisamide Allergy Unknown Verified 01/14/19 20:39 escitalopram AdvReac Unknown Verified 01/14/19 20:39 lamotrigine AdvReac Unknown Verified 01/14/19 20:39 Review of Systems <Mariah Mcdonald DO - Last Filed: 03/10/19 07:24> Review of Systems ROS Unobtainable: All systems reviewed & are unremarkable except as noted in HPI and below Patient History <Mariah Mcdonald DO - Last Filed: 03/10/19 07:24> Medical History Anxiety (Chronic) Chicken pox (Resolved ~1966) Cognitive dysfunction (Chronic) Depression (Chronic) Diabetes mellitus type 2, insulin dependent (Chronic ~2007) Fecal incontinence (Chronic) Fractures (Resolved ~2017) GERD without esophagitis (Chronic) Hearing loss (Chronic ~2016) High serum lactate (Chronic) Measles (Resolved ~1963) Oligodendroglioma (Chronic ~2011) Orthostatic hypotension (Chronic) Other and unspecified hyperlipidemia (Chronic) Ovarian cyst (Chronic ~1983) Seizure disorder (Chronic) Urinary incontinence (Chronic ~2015) Vision disorder (Chronic) Surgical History Anesthesia (Resolved) H/O pelvic surgery (Inactive ~2016) History of cholecystectomy (Resolved ~1987) History of hysterectomy (Resolved ~1988) Family History Father Cancer Diabetes mellitus Hypertension Sister Hypertension Sister Cancer Grandfather Heart disease Grandmother Heart disease Social History marital status: number of children: 3 household members: caregiver and other lives independently: Yes caregiver/support person: Yes housing: assisted living facility pets and animals: No education level: high school occupational status: disabled Previous occupational history: [employer] in [place] duncan/adventism: None leisure activities: games (Bingo) and other (Movies, TV) Smoking Status: Former smoker Tobacco: How many years used: 2 Smokeless tobacco user: other (Cigarettes) quit status: quit date established (2010) second hand exposure: No alcohol intake: never substance use type: does not use alcohol intake frequency: holidays/special occasions only Substance Use Type: does not use Exam <Mariah Mcdonald DO - Last Filed: 03/10/19 07:24> Narrative Exam Narrative: GENERAL: Alert and oriented x three, morbidly obese female in moderate distress patient appears pale. HEENT: Head normocephalic, atraumatic, EOMI, pupils reactive, face symmetric, dry mucous membranes and cracked lips. NECK: Supple, full range of motion CARDIOVASCULAR: Regular rate and rhythm without murmurs, rubs or gallops. RESPIRATORY: Breath sounds equal bilaterally, no wheezes rales or rhonchi. ABDOMEN: Soft, nontender to palpation. Normoactive bowel sounds all 4 quadrants. No guarding or rebound, rigidity, no mass. On DANY patient has stool present that is at rectal vault. Brown in coloration but + for hemoccult. : No CVA tenderness. Patient has excoriation and raw skin in the vaginal area and perineum there are actually some small areas of bleeding from the skin. EXTREMITIES: Normal range of motion, no clubbing or edema. Neurovascularly intact NEUROLOGICAL: Cranial nerves II through XII grossly intact. Moving all extremities SKIN: Warm, dry, no petechiae, no rashes or lesions other than noted above. Patient has several areas of ecchymosis on extremities. Initial Vital Signs Initial Vital Signs: Vital Signs Temperature 96.2 F L 03/07/19 12:58 Pulse Rate 99 H 03/07/19 12:58 Respiratory Rate 16 03/07/19 12:58 Blood Pressure 124/80 03/07/19 12:58 Pulse Oximetry 98 03/07/19 12:58 <Erlinda Jose, DO - Last Filed: 03/08/19 09:34> Initial Vital Signs Initial Vital Signs: Vital Signs Temperature 96.2 F L 03/07/19 12:58 Pulse Rate 99 H 03/07/19 12:58 Respiratory Rate 16 03/07/19 12:58 Blood Pressure 124/80 03/07/19 12:58 Pulse Oximetry 98 03/07/19 12:58 Course <Mariah Mcdonald, DO - Last Filed: 03/10/19 07:24> Orders Ordered: Discontinued Medications Acetaminophen (Tylenol) 650 mg PO Q4HR PRN PRN Reason: As Needed for Fever/Mild Pain Calcium Carbonate (Tums) 1,000 mg PO Q4HR PRN PRN Reason: Dyspepsia Calcium Carbonate (Tums) 1,000 mg PO Q4HR PRN PRN Reason: Dyspepsia Citalopram Hydrobromide (Celexa) 20 mg PO DAILY [facility] Citalopram Hydrobromide (Celexa) 20 mg PO DAILY [facility] [place] Last Admin: 03/09/19 09:30 Dose: 20 mg Documented by: Admin: 03/08/19 09:23 Dose: 20 mg Documented by: CMCFARL Dexamethasone (Decadron) 2 mg PO BID [facility] [place] Dexamethasone (Decadron) 2 mg PO BID [facility] [place] Last Admin: 03/09/19 09:30 Dose: 2 mg Documented by: Admin: 03/08/19 22:13 Dose: 2 mg Documented by: Admin: 03/08/19 09:24 Dose: 2 mg Documented by: Admin: 03/07/19 21:23 Dose: 2 mg Documented by: GEORGINA Dextrose (D50w) 25 gm IV PRN PRN PRN Reason: Hypoglycemia Docusate Sodium (Colace) 200 mg PO DAILY [facility] [place] Last Admin: 03/09/19 09:33 Dose: 200 mg Documented by: Admin: 03/08/19 10:13 Dose: 200 mg Documented by: CMCFARL Enoxaparin Sodium (Lovenox) 40 mg SUBCUT DAILY [facility] [place] Enoxaparin Sodium (Lovenox) 40 mg SUBCUT DAILY [facility] [place] Fish Oil (Fish Oil) 1,000 mg PO DAILY [facility] [place] Last Admin: 03/09/19 09:30 Dose: 1,000 mg Documented by: Admin: 03/08/19 09:23 Dose: 1,000 mg Documented by: CMCFARL Fluconazole (Diflucan) 100 mg PO DAILY [facility] [place] Fluconazole (Diflucan) 100 mg PO DAILY [facility] [place] Last Admin: 03/09/19 09:31 Dose: 100 mg Documented by: Admin: 03/08/19 09:23 Dose: 100 mg Documented by: CMCFARL Sodium Chloride (Normal Saline 0.9%) 1,000 mls @ 150 mls/hr IV CONT [facility] [place] Last Infusion: 03/07/19 17:40 Dose: 150 mls/hr Documented by: Admin: 03/07/19 13:57 Dose: 150 mls/hr Documented by: KBROTEM Sodium Chloride (Normal Saline 0.9%) 1,000 mls @ 100 mls/hr IV CONT [facility] Last Admin: 03/07/19 18:37 Dose: Not Given Documented by: LVAZQUE Sodium Chloride (Normal Saline 0.9%) 1,000 mls @ 100 mls/hr IV CONT [facility] Last Admin: 03/09/19 05:52 Dose: 100 mls/hr Documented by: Infusion: 03/08/19 20:12 Dose: 100 mls/hr Documented by: Admin: 03/08/19 10:12 Dose: 100 mls/hr Documented by: Infusion: 03/08/19 10:07 Dose: 150 mls/hr Documented by: Admin: 03/08/19 03:26 Dose: 150 mls/hr Documented by: LUIS FELIPE Infusion: 03/08/19 03:26 Dose: 150 mls/hr Documented by: LUIS FELIPE Admin: 03/07/19 22:14 Dose: 150 mls/hr Documented by: Infusion: 03/07/19 22:14 Dose: 150 mls/hr Documented by: Admin: 03/07/19 18:37 Dose: 150 mls/hr Documented by: GEORGINA Insulin Aspart (Novolog Flexpen) 0 unit SUBCUT ACHS [facility] [place]; Protocol Last Admin: 03/09/19 12:46 Dose: 1 unit Documented by: JEFF Cosigned by: LAW Admin: 03/09/19 08:53 Dose: Not Given Documented by: Admin: 03/08/19 22:24 Dose: 2 unit Documented by: MONI Cosigned by: GEORGINA Admin: 03/08/19 17:01 Dose: 1 unit Documented by: GEORGINA Cosigned by: JESSI Admin: 03/08/19 12:32 Dose: 300 unit Documented by: BONILLA Cosigned by: BOB Admin: 03/08/19 09:27 Dose: 1 unit Documented by: BONILLA Cosigned by: BOB Admin: 03/07/19 21:41 Dose: 3 unit Documented by: GEORGINA Cosigned by: MONI Insulin Glargine (Lantus Solostar (Pen)) 50 unit SUBCUT QPM [facility] [place] Insulin Glargine (Lantus Solostar (Pen)) 45 unit SUBCUT DAILY [facility] Insulin Glargine (Lantus Solostar (Pen)) 45 unit SUBCUT 0800 [facility] [place] Last Admin: 03/09/19 09:47 Dose: 45 unit Documented by: LAW Cosigned by: ELIZABETH Admin: 03/08/19 22:22 Dose: 45 unit Documented by: MONI Cosigned by: GEORGINA Admin: 03/08/19 09:27 Dose: 45 unit Documented by: BONILLA Cosigned by: BOB Insulin Glargine (Lantus Solostar (Pen)) 45 unit SUBCUT 2100 [facility] [place] Last Admin: 03/08/19 22:25 Dose: 45 unit Documented by: MONI Cosigned by: GEORGINA Admin: 03/07/19 21:33 Dose: 45 unit Documented by: GEORGINA Cosigned by: MONI Levetiracetam (Keppra) 750 mg PO BEDTIME [facility] [place] Levetiracetam (Keppra) 500 mg PO DAILY [facility] [place] Levetiracetam (Keppra) 750 mg PO BEDTIME [facility] [place] Last Admin: 03/08/19 22:12 Dose: 750 mg Documented by: Admin: 03/07/19 21:27 Dose: 750 mg Documented by: GEORGINA Levetiracetam (Keppra) 500 mg PO DAILY [facility] [place] Last Admin: 03/09/19 09:32 Dose: 500 mg Documented by: Admin: 03/08/19 09:23 Dose: 500 mg Documented by: BONILLA Magnesium Oxide (Mag Ox) 400 mg PO BID [facility] [place] Meclizine HCl (Antivert) 25 mg PO Q6H PRN PRN Reason: dizziness or vertigo Melatonin (Melatonin) 6 mg PO BEDTIME [facility] [place] Melatonin (Melatonin) 3 mg PO BEDTIME [facility] [place] Last Admin: 03/08/19 22:12 Dose: 3 mg Documented by: Admin: 03/07/19 21:28 Dose: 3 mg Documented by: GEORGINA Midodrine (Midodrine) 5 mg PO BID [facility] [place] Midodrine (Midodrine) 5 mg PO BID [facility] [place] Last Admin: 03/09/19 09:31 Dose: 5 mg Documented by: Admin: 03/08/19 22:14 Dose: 5 mg Documented by: Admin: 03/08/19 09:23 Dose: 5 mg Documented by: Admin: 03/07/19 21:28 Dose: 5 mg Documented by: GEORGINA Non-Formulary Medication (Hydrocortisone Acetate) 1 applictn TOP Q8H PRN PRN Reason: Rash Non-Formulary Medication (Omeprazole) 20 mg PO BID [facility] Nystatin (Nystop) 1 applic TOP PRN PRN PRN Reason: Rash Nystatin (Nystop) 1 applic TOP TID PRN PRN Reason: Rash Ondansetron HCl (Zofran) 4 mg IV Q8HR PRN PRN Reason: Nausea And Vomiting Ondansetron HCl (Zofran Odt) 4 mg SL Q4HR PRN PRN Reason: Nausea Ondansetron HCl (Zofran) 4 mg IV Q2HR PRN PRN Reason: Nausea And Vomiting Oxycodone HCl (Percolone) 5 mg PO Q4HR PRN PRN Reason: Pain, Moderate (4-6) Oxycodone HCl (Percolone) 5 mg PO BEDTIME PRN PRN Reason: Pain, Moderate (4-6) Last Admin: 03/07/19 21:23 Dose: 5 mg Documented by: GEORGINA Oxycodone/Acetaminophen (Percocet 5/325) 1 tab PO BEDTIME PRN PRN Reason: moderate pain/discomfort Pantoprazole Sodium (Protonix) 20 mg PO 0700,2100 [facility] [place] Last Admin: 03/09/19 05:51 Dose: 20 mg Documented by: Admin: 03/08/19 22:16 Dose: 20 mg Documented by: Admin: 03/08/19 09:26 Dose: 20 mg Documented by: Admin: 03/07/19 21:28 Dose: 20 mg Documented by: GEORGINA Potassium Chloride (Klor-Con M20) 40 meq PO BID [facility] [place] Last Admin: 03/09/19 09:29 Dose: 40 meq Documented by: Admin: 03/08/19 22:13 Dose: 40 meq Documented by: Admin: 03/08/19 09:24 Dose: 40 meq Documented by: Admin: 03/07/19 21:28 Dose: 40 meq Documented by: GEORGINA Vital Signs Vital signs: Vital Signs - 8 hr 03/07/19 12:58 Temperature 96.2 F L Pulse Rate 99 H Respiratory Rate 16 Blood Pressure 124/80 Pulse Oximetry 98 <Erlinda Jose DO - Last Filed: 03/08/19 09:34> Orders Ordered: Discontinued Medications Acetaminophen (Tylenol) 650 mg PO Q4HR PRN PRN Reason: As Needed for Fever/Mild Pain Calcium Carbonate (Tums) 1,000 mg PO Q4HR PRN PRN Reason: Dyspepsia Calcium Carbonate (Tums) 1,000 mg PO Q4HR PRN PRN Reason: Dyspepsia Citalopram Hydrobromide (Celexa) 20 mg PO DAILY [facility] Citalopram Hydrobromide (Celexa) 20 mg PO DAILY [facility] [place] Last Admin: 03/09/19 09:30 Dose: 20 mg Documented by: Admin: 03/08/19 09:23 Dose: 20 mg Documented by: BONILLA Dexamethasone (Decadron) 2 mg PO BID [facility] [place] Dexamethasone (Decadron) 2 mg PO BID [facility] [place] Last Admin: 03/09/19 09:30 Dose: 2 mg Documented by: Admin: 03/08/19 22:13 Dose: 2 mg Documented by: Admin: 03/08/19 09:24 Dose: 2 mg Documented by: Admin: 03/07/19 21:23 Dose: 2 mg Documented by: GEORGINA Dextrose (D50w) 25 gm IV PRN PRN PRN Reason: Hypoglycemia Docusate Sodium (Colace) 200 mg PO DAILY [facility] [place] Last Admin: 03/09/19 09:33 Dose: 200 mg Documented by: Admin: 03/08/19 10:13 Dose: 200 mg Documented by: BUDDYFARL Enoxaparin Sodium (Lovenox) 40 mg SUBCUT DAILY [facility] [place] Enoxaparin Sodium (Lovenox) 40 mg SUBCUT DAILY [facility] [place] Fish Oil (Fish Oil) 1,000 mg PO DAILY [facility] [place] Last Admin: 03/09/19 09:30 Dose: 1,000 mg Documented by: Admin: 03/08/19 09:23 Dose: 1,000 mg Documented by: BUDDYFARL Fluconazole (Diflucan) 100 mg PO DAILY [facility] Fluconazole (Diflucan) 100 mg PO DAILY [facility] Last Admin: 03/09/19 09:31 Dose: 100 mg Documented by: Admin: 03/08/19 09:23 Dose: 100 mg Documented by: CMCFARL Sodium Chloride (Normal Saline 0.9%) 1,000 mls @ 150 mls/hr IV CONT [facility] Last Infusion: 03/07/19 17:40 Dose: 150 mls/hr Documented by: Admin: 03/07/19 13:57 Dose: 150 mls/hr Documented by: KBROTEM Sodium Chloride (Normal Saline 0.9%) 1,000 mls @ 100 mls/hr IV CONT [facility] Last Admin: 03/07/19 18:37 Dose: Not Given Documented by: LVAZQUE Sodium Chloride (Normal Saline 0.9%) 1,000 mls @ 100 mls/hr IV CONT [facility] Last Admin: 03/09/19 05:52 Dose: 100 mls/hr Documented by: Infusion: 03/08/19 20:12 Dose: 100 mls/hr Documented by: Admin: 03/08/19 10:12 Dose: 100 mls/hr Documented by: Infusion: 03/08/19 10:07 Dose: 150 mls/hr Documented by: Admin: 03/08/19 03:26 Dose: 150 mls/hr Documented by: Infusion: 03/08/19 03:26 Dose: 150 mls/hr Documented by: Admin: 03/07/19 22:14 Dose: 150 mls/hr Documented by: Infusion: 03/07/19 22:14 Dose: 150 mls/hr Documented by: Admin: 03/07/19 18:37 Dose: 150 mls/hr Documented by: LVAZQUE Insulin Aspart (Novolog Flexpen) 0 unit SUBCUT ACHS [facility]; Protocol Last Admin: 03/09/19 12:46 Dose: 1 unit Documented by: JEFF Cosigned by: LAW Admin: 03/09/19 08:53 Dose: Not Given Documented by: Admin: 03/08/19 22:24 Dose: 2 unit Documented by: MONI Cosigned by: GEORGINA Admin: 03/08/19 17:01 Dose: 1 unit Documented by: GEORGINA Cosigned by: GPBETO Admin: 03/08/19 12:32 Dose: 300 unit Documented by: BONILLA Cosigned by: BOB Admin: 03/08/19 09:27 Dose: 1 unit Documented by: BONILLA Cosigned by: BOB Admin: 03/07/19 21:41 Dose: 3 unit Documented by: GEORGINA Cosigned by: MONI Insulin Glargine (Lantus Solostar (Pen)) 50 unit SUBCUT QPM [facility] Insulin Glargine (Lantus Solostar (Pen)) 45 unit SUBCUT DAILY [facility] Insulin Glargine (Lantus Solostar (Pen)) 45 unit SUBCUT 0800 [facility] [place] Last Admin: 03/09/19 09:47 Dose: 45 unit Documented by: LAW Cosigned by: ELIZABETH Admin: 03/08/19 22:22 Dose: 45 unit Documented by: MONI Cosigned by: GEORGINA Admin: 03/08/19 09:27 Dose: 45 unit Documented by: BONILLA Cosigned by: BOB Insulin Glargine (Lantus Solostar (Pen)) 45 unit SUBCUT 2100 [facility] [place] Last Admin: 03/08/19 22:25 Dose: 45 unit Documented by: MONI Cosigned by: GEORGINA Admin: 03/07/19 21:33 Dose: 45 unit Documented by: GEORGINA Cosigned by: MONI Levetiracetam (Keppra) 750 mg PO BEDTIME [facility] Levetiracetam (Keppra) 500 mg PO DAILY [facility] Levetiracetam (Keppra) 750 mg PO BEDTIME [facility] [place] Last Admin: 03/08/19 22:12 Dose: 750 mg Documented by: Admin: 03/07/19 21:27 Dose: 750 mg Documented by: GEORGINA Levetiracetam (Keppra) 500 mg PO DAILY [facility] [place] Last Admin: 03/09/19 09:32 Dose: 500 mg Documented by: Admin: 03/08/19 09:23 Dose: 500 mg Documented by: BONILLA Magnesium Oxide (Mag Ox) 400 mg PO BID [facility] Meclizine HCl (Antivert) 25 mg PO Q6H PRN PRN Reason: dizziness or vertigo Melatonin (Melatonin) 6 mg PO BEDTIME [facility] [place] Melatonin (Melatonin) 3 mg PO BEDTIME [facility] [place] Last Admin: 03/08/19 22:12 Dose: 3 mg Documented by: Admin: 03/07/19 21:28 Dose: 3 mg Documented by: GEORGINA Midodrine (Midodrine) 5 mg PO BID [facility] [place] Midodrine (Midodrine) 5 mg PO BID [facility] [place] Last Admin: 03/09/19 09:31 Dose: 5 mg Documented by: Admin: 03/08/19 22:14 Dose: 5 mg Documented by: Admin: 03/08/19 09:23 Dose: 5 mg Documented by: Admin: 03/07/19 21:28 Dose: 5 mg Documented by: GEORGINA Non-Formulary Medication (Hydrocortisone Acetate) 1 applictn TOP Q8H PRN PRN Reason: Rash Non-Formulary Medication (Omeprazole) 20 mg PO BID [facility] [place] Nystatin (Nystop) 1 applic TOP PRN PRN PRN Reason: Rash Nystatin (Nystop) 1 applic TOP TID PRN PRN Reason: Rash Ondansetron HCl (Zofran) 4 mg IV Q8HR PRN PRN Reason: Nausea And Vomiting Ondansetron HCl (Zofran Odt) 4 mg SL Q4HR PRN PRN Reason: Nausea Ondansetron HCl (Zofran) 4 mg IV Q2HR PRN PRN Reason: Nausea And Vomiting Oxycodone HCl (Percolone) 5 mg PO Q4HR PRN PRN Reason: Pain, Moderate (4-6) Oxycodone HCl (Percolone) 5 mg PO BEDTIME PRN PRN Reason: Pain, Moderate (4-6) Last Admin: 03/07/19 21:23 Dose: 5 mg Documented by: GEORGINA Oxycodone/Acetaminophen (Percocet 5/325) 1 tab PO BEDTIME PRN PRN Reason: moderate pain/discomfort Pantoprazole Sodium (Protonix) 20 mg PO 0700,2100 [facility] [place] Last Admin: 03/09/19 05:51 Dose: 20 mg Documented by: Admin: 03/08/19 22:16 Dose: 20 mg Documented by: Admin: 03/08/19 09:26 Dose: 20 mg Documented by: Admin: 03/07/19 21:28 Dose: 20 mg Documented by: LVAZQUE Potassium Chloride (Klor-Con M20) 40 meq PO BID [facility] Last Admin: 03/09/19 09:29 Dose: 40 meq Documented by: Admin: 03/08/19 22:13 Dose: 40 meq Documented by: Admin: 03/08/19 09:24 Dose: 40 meq Documented by: Admin: 03/07/19 21:28 Dose: 40 meq Documented by: LVAZQUE Vital Signs Vital signs: Vital Signs - 8 hr 03/07/19 12:58 Temperature 96.2 F L Pulse Rate 99 H Respiratory Rate 16 Blood Pressure 124/80 Pulse Oximetry 98 MDM - Abdominal Pain <Mariah Mcdonald DO - Last Filed: 03/10/19 07:24> Lab Data Attestation: I reviewed the patient's lab results. Result diagrams: 03/08/19 05:39 03/09/19 05:34 Labs: Lab Results 03/07/19 03/07/19 03/07/19 Range/Units 13:35 13:35 13:35 WBC 10.8 (4.5-11.0) X10^3/uL RBC 4.08 (4.0-5.2) X10^6/uL Hgb 13.7 (12.0-16.0) g/dL Hct 41.6 (36-46) % MCV 102.0 H (80-100) fL MCH 33.6 (26-34) PG MCHC 33.0 (30-36) % RDW 15.6 H (11.6-14.8) % Plt Count 183 (150-400) X10^3/uL Neut % (Auto) 79.3 H (50-75) % Lymph % (Auto) 12.2 L (25-40) % [place] % (Auto) 7.3 (3-14) % Eos % (Auto) 0.5 L (2-4) % Baso % (Auto) 0.7 (0-2) % Neut # (Auto) 8600 H (3143-4393) /uL Lymph # (Auto) 1300 (6114-9616) /uL [place] # (Auto) 800 (0-900) /uL Eos # (Auto) 100 (0-450) /uL Baso # (Auto) 100 (0-100) /uL Sodium 148 H (137-145) mmol/L Potassium 3.6 (3.4-5.1) mmol/L Chloride 111 H (98-107) mmol/L Carbon Dioxide 29 (22-32) mmol/L BUN 26 H (7-17) mg/dL Creatinine 0.70 (0.52-1.04) mg/dL Estimated GFR > 60.0 (>60) mL/min BUN/Creatinine Ratio 37.1 H (6-22) Glucose 252 H (70-100) mg/dL Calcium 9.8 (8.4-10.2) mg/dL Total Bilirubin 0.7 (0.2-1.3) mg/dL AST 159 H (14-36) IU/L ALT 208 H (<35) IU/L Alkaline Phosphatase 317 H (38-126) U/L Total Creatine Kinase 31 (30-135) U/L CK-MB (CK-2) TNP CK-MB (CK-2) Rel Index TNP Troponin I < 0.012 (0.01-0.034) ng/mL Total Protein 6.4 (6.3-8.2) g/dL Albumin 3.8 (3.5-5.0) g/dL Globulin 2.6 (1.7-4.1) g/dL Albumin/Globulin Ratio 1.5 (1.0-2.8) Lipase 380 H (23-300) U/L Blood Type O Positive Antibody Screen Negative 03/07/19 Range/Units 13:35 WBC (4.5-11.0) X10^3/uL RBC (4.0-5.2) X10^6/uL Hgb (12.0-16.0) g/dL Hct (36-46) % MCV (80-100) fL MCH (26-34) PG MCHC (30-36) % RDW (11.6-14.8) % Plt Count (150-400) X10^3/uL Neut % (Auto) (50-75) % Lymph % (Auto) (25-40) % [place] % (Auto) (3-14) % Eos % (Auto) (2-4) % Baso % (Auto) (0-2) % Neut # (Auto) (1213-0302) /uL Lymph # (Auto) (4339-5231) /uL [place] # (Auto) (0-900) /uL Eos # (Auto) (0-450) /uL Baso # (Auto) (0-100) /uL Sodium (137-145) mmol/L Potassium (3.4-5.1) mmol/L Chloride (98-107) mmol/L Carbon Dioxide (22-32) mmol/L BUN (7-17) mg/dL Creatinine (0.52-1.04) mg/dL Estimated GFR (>60) mL/min BUN/Creatinine Ratio (6-22) Glucose (70-100) mg/dL Calcium (8.4-10.2) mg/dL Total Bilirubin (0.2-1.3) mg/dL AST (14-36) IU/L ALT (<35) IU/L Alkaline Phosphatase (38-126) U/L Total Creatine Kinase (30-135) U/L CK-MB (CK-2) CK-MB (CK-2) Rel Index Troponin I (0.01-0.034) ng/mL Total Protein (6.3-8.2) g/dL Albumin (3.5-5.0) g/dL Globulin (1.7-4.1) g/dL Albumin/Globulin Ratio (1.0-2.8) Lipase 386 H (23-300) U/L Blood Type Antibody Screen Point of care testing: Urine Dip Bedside Urine Glucose 100 mg/dl Bedside Urine Bilirubin - Negative Bedside Urine Ketone - Negative Urine Specific Goree 1.015 Bedside Urine Occult Blood - Negative Bedside Urine pH 5.5 Bedside Urine Protein - Negative Bedside Urine Urobilinogen - Negative Bedside Urine Nitrite - Negative Bedside Urine Leukocytes - Negative Esterase Imaging Data CT scan - abdomen: Radiologist's impression: [address] [address] [address] Scan Report Signed Patient: Breana Claudio FERNANDOR#: [id number] : 1Acct:[id number] Age/Sex: 58 / FDate of Service: 03/07/19 Loc: ED Accession Number: [id number] Procedure: CT abdomen pelvis w con Ordering Provider: Mariah Mcdonald D.O. PROCEDURE: CT ABDOMEN PELVIS W CON INDICATIONS: abdominal pain, recent pancreatitis and proctitis TECHNIQUE: After the administration of oral and intravenous contrast, 5 mm thick sections acquired from the diaphragms to the symphysis. 5 mm thick coronal and sagittal reformats were performed. For radiation dose reduction, the following was used: automated exposure control, adjustment of mA and/or kV according to patient size. COMPARISON: [facility], CT, CT ABDOMEN PELVIS W CON, 01/24/2019, 14:07. [facility], CT, CT ABDOMEN PELVIS W CON, 12/23/2017, 11:35. FINDINGS: Image quality: Diagnostic. ABDOMEN: Lung bases: Scar versus atelectasis within the bilateral posterior costophrenic angles is present. Heart size is normal. Solid organs: The pancreas appears to be within normal limits. Expected enhancement of the pancreas is present. No peripancreatic inflammation or fluid collections a re identified. The liver is slightly hypodense when compared to the spleen. No focal liver lesions are appreciated. The patient has had a prior cholecystectomy. The common bile duct is within normal limits for size. The spleen and adrenals are unremarkable. The kidneys are somewhat small in size and demonstrate minimal parenchymal thinning. There is no hydronephrosis. Low attenuation lesion within the upper portion of the left kidney is identified, likely representing a simple cyst. There is mild perinephric edema evident bilaterally, which probably is senescent. No renal calculi are evident. The ureters are normal in course and caliber. Peritoneum and bowel: The stomach and duodenum are within normal limits. The small bowel loops are nondilated. There is a very large amount of stool identified within the rectal vault. Minimal edema within the adjacent fat is identified surrounding the wall of the rectum and anus. Otherwise, and the colon is essentially unremarkable. Moderate fecal load is evident. No free fluid or loculated fluid collection is identified. There is no free air. Nodes and vessels: No retroperitoneal or mesenteric adenopathy. Aorta and inferior vena cava are normal in caliber. Bones: No acute fracture or suspicious osseous lesion is identified. There mild degenerative changes of the imaged spine. PELVIS: Genitourinary: Bladder wall thickness is normal. The uterus is surgically absent. The ovaries are not definitely seen and may have been surgically removed or atrophic. Miscellaneous: No inguinal hernias or adenopathy. No free fluid or loculated fluid collection is present. Bones: No suspicious bony lesions. No acute pelvic fractures are identified. A sacral stimulator apparatus is incidentally noted. IMPRESSION: 1. Large amount of stool within the colon may represent developing fecal impaction. No bowel obstruction. 2. Mild inflammation adjacent to the rectum may represent proctitis. There is no abscess. Please correlate clinically. 3. The pancreas is within normal limits. 4. Hepatic steatosis. 5. Scarring versus atelectasis within the bilateral posterior costophrenic a ngles. Dictated by: Krish Egan M.D. on 03/07/2019 at 13:56 Approved by: Krish Egan M.D. on 03/07/2019 at 14:01 Chest x-ray: Radiologist's impression: [address] [address] XRay Report Signed Patient: Breana Claudio JMR#: [id number] : 1Acct:[id number] Age/Sex: 58 / FDate of Service: 03/07/19 Loc: ED Accession Number: [id number] Procedure: XR chest 1V Ordering Provider: Mariah Mcdonald D.O. PROCEDURE: XR CHEST 1V INDICATIONS: abdominal pain, ? blood in stool, chest pain TECHNIQUE: One view of the chest was acquired. [facility] 20[facility]38. FINDINGS: Surgical changes and devices: None. Lungs and pleura: Apical lordotic positioning results in difficulty evaluating the lung bases. No definite pulmonary consolidation is evident. There appear to be low lung volumes. No large effusion or definite pneumothorax is appreciated. Mediastinum: Mediastinal contours appear normal. Heart probably is enlarged. Bones and chest wall: No suspicious bony lesions. Overlying soft tissues appear unremarkable. IMPRESSION: Cardiomegaly without overt heart failure. No definite pneumonia. Dictated by: Krish Egan M.D. on 03/07/2019 at 12:23 Approved by: Krish Egan M.D. on 03/07/2019 at 12:23 ECG Data Attestation: I personally reviewed and interpreted this ECG as follows: Prior ECG tracings: available for review Interpretation: Sinus tachycardia rate of 100 P are 142 QRS of 78 QTC of 408. Nonspecific T-wave change. Patient has artifact in V1 which we were not able to resolve with EKG. Patient has prior EKG from 06/06/2018 which appears similar except for T-waves appear flattened in V4, 5 and 6. This appears similar to an EKG from 04/11/2019. MDM Narrative Medical decision making narrative: Patient has stool on CT but is having bowel movements while in department. No bright red blood but patient has proctitis on recent colonoscopy with Dr. Carbajal, and continues to have changes on CT consistent with this still being present. She also has some externally from excoriated skin. Either could potentially be the cause of the bright red blood noted in her depends earlier today. Patient's hemoglobin is stable. She does not have a white count. Patient's pancreatitis does to be recurring with a lipase at 386 and a very elevated AST/ALT and alk-phos which are not at the maximum for the lipase but are quite elevated from prior LFTs. Bilirubin is normal. Patient also looks quite dry and would likely benefit from some gentle fluids and skin care. I spoke with Dr. Jose who accepts. <Erlinda Jose, DO - Last Filed: 03/08/19 09:34> Lab Data Labs: Lab Results 03/07/19 03/07/19 03/07/19 Range/Units 13:35 13:35 13:35 WBC 10.8 (4.5-11.0) X10^3/uL RBC 4.08 (4.0-5.2) X10^6/uL Hgb 13.7 (12.0-16.0) g/dL Hct 41.6 (36-46) % MCV 102.0 H (80-100) fL MCH 33.6 (26-34) PG MCHC 33.0 (30-36) % RDW 15.6 H (11.6-14.8) % Plt Count 183 (150-400) X10^3/uL Neut % (Auto) 79.3 H (50-75) % Lymph % (Auto) 12.2 L (25-40) % [place] % (Auto) 7.3 (3-14) % Eos % (Auto) 0.5 L (2-4) % Baso % (Auto) 0.7 (0-2) % Neut # (Auto) 8600 H (9951-2652) /uL Lymph # (Auto) 1300 (7878-2107) /uL [place] # (Auto) 800 (0-900) /uL Eos # (Auto) 100 (0-450) /uL Baso # (Auto) 100 (0-100) /uL Sodium 148 H (137-145) mmol/L Potassium 3.6 (3.4-5.1) mmol/L Chloride 111 H (98-107) mmol/L Carbon Dioxide 29 (22-32) mmol/L BUN 26 H (7-17) mg/dL Creatinine 0.70 (0.52-1.04) mg/dL Estimated GFR > 60.0 (>60) mL/min BUN/Creatinine Ratio 37.1 H (6-22) Glucose 252 H (70-100) mg/dL Calcium 9.8 (8.4-10.2) mg/dL Total Bilirubin 0.7 (0.2-1.3) mg/dL AST 159 H (14-36) IU/L ALT 208 H (<35) IU/L Alkaline Phosphatase 317 H (38-126) U/L Total Creatine Kinase 31 (30-135) U/L CK-MB (CK-2) TNP CK-MB (CK-2) Rel Index TNP Troponin I < 0.012 (0.01-0.034) ng/mL Total Protein 6.4 (6.3-8.2) g/dL Albumin 3.8 (3.5-5.0) g/dL Globulin 2.6 (1.7-4.1) g/dL Albumin/Globulin Ratio 1.5 (1.0-2.8) Lipase 380 H (23-300) U/L Blood Type O Positive Antibody Screen Negative 03/07/19 Range/Units 13:35 WBC (4.5-11.0) X10^3/uL RBC (4.0-5.2) X10^6/uL Hgb (12.0-16.0) g/dL Hct (36-46) % MCV (80-100) fL MCH (26-34) PG MCHC (30-36) % RDW (11.6-14.8) % Plt Count (150-400) X10^3/uL Neut % (Auto) (50-75) % Lymph % (Auto) (25-40) % [place] % (Auto) (3-14) % Eos % (Auto) (2-4) % Baso % (Auto) (0-2) % Neut # (Auto) (7202-4048) /uL Lymph # (Auto) (3569-6355) /uL [place] # (Auto) (0-900) /uL Eos # (Auto) (0-450) /uL Baso # (Auto) (0-100) /uL Sodium (137-145) mmol/L Potassium (3.4-5.1) mmol/L Chloride (98-107) mmol/L Carbon Dioxide (22-32) mmol/L BUN (7-17) mg/dL Creatinine (0.52-1.04) mg/dL Estimated GFR (>60) mL/min BUN/Creatinine Ratio (6-22) Glucose (70-100) mg/dL Calcium (8.4-10.2) mg/dL Total Bilirubin (0.2-1.3) mg/dL AST (14-36) IU/L ALT (<35) IU/L Alkaline Phosphatase (38-126) U/L Total Creatine Kinase (30-135) U/L CK-MB (CK-2) CK-MB (CK-2) Rel Index Troponin I (0.01-0.034) ng/mL Total Protein (6.3-8.2) g/dL Albumin (3.5-5.0) g/dL Globulin (1.7-4.1) g/dL Albumin/Globulin Ratio (1.0-2.8) Lipase 386 H (23-300) U/L Blood Type Antibody Screen Point of care testing: Urine Dip Bedside Urine Glucose 100 mg/dl Bedside Urine Bilirubin - Negative Bedside Urine Ketone - Negative Urine Specific [place] 1.015 Bedside Urine Occult Blood - Negative Bedside Urine pH 5.5 Bedside Urine Protein - Negative Bedside Urine Urobilinogen - Negative Bedside Urine Nitrite - Negative Bedside Urine Leukocytes - Negative Esterase Discharge Plan Departure Patient Disposition: Admitted as Observation Clinical Impression: Abdominal pain, Pancreatitis, Proctitis Discharge Date/Time: 03/07/19 17:50 Admit Date/Time: 03/07/19 17:48 Admit Provider: Erlinda Jose
--- NOTE | 2019-03-07 12:35 | DI.RAD.S_ITS ---
PROCEDURE: XR CHEST 1V INDICATIONS: abdominal pain, ? blood in stool, chest pain TECHNIQUE: One view of the chest was acquired. COMPARISON: [facility], CR, XR CHEST 1V, 12/08/2018, 20:38. FINDINGS: Surgical changes and devices: None. Lungs and pleura: Apical lordotic positioning results in difficulty evaluating the lung bases. No definite pulmonary consolidation is evident. There appear to be low lung volumes. No large effusion or definite pneumothorax is appreciated. Mediastinum: Mediastinal contours appear normal. Heart probably is enlarged. Bones and chest wall: No suspicious bony lesions. Overlying soft tissues appear unremarkable. IMPRESSION: Cardiomegaly without overt heart failure. No definite pneumonia. Dictated by: Krish Egan M.D. on 03/07/2019 at 12:23 Approved by: Krish Egan M.D. on 03/07/2019 at 12:23
--- NOTE | 2019-03-07 12:42 | DI.CT.S_ITS ---
PROCEDURE: CT ABDOMEN PELVIS W CON INDICATIONS: abdominal pain, recent pancreatitis and proctitis TECHNIQUE: After the administration of oral and intravenous contrast, 5 mm thick sections acquired from the diaphragms to the symphysis. 5 mm thick coronal and sagittal reformats were performed. For radiation dose reduction, the following was used: automated exposure control, adjustment of mA and/or kV according to patient size. COMPARISON: [facility], CT, CT ABDOMEN PELVIS W CON, 01/24/2019, 14:07. [facility], CT, CT ABDOMEN PELVIS W CON, 12/23/2017, 11:35. FINDINGS: Image quality: Diagnostic. ABDOMEN: Lung bases: Scar versus atelectasis within the bilateral posterior costophrenic angles is present. Heart size is normal. Solid organs: The pancreas appears to be within normal limits. Expected enhancement of the pancreas is present. No peripancreatic inflammation or fluid collections are identified. The liver is slightly hypodense when compared to the spleen. No focal liver lesions are appreciated. The patient has had a prior cholecystectomy. The common bile duct is within normal limits for size. The spleen and adrenals are unremarkable. The kidneys are somewhat small in size and demonstrate minimal parenchymal thinning. There is no hydronephrosis. Low attenuation lesion within the upper portion of the left kidney is identified, likely representing a simple cyst. There is mild perinephric edema evident bilaterally, which probably is senescent. No renal calculi are evident. The ureters are normal in course and caliber. Peritoneum and bowel: The stomach and duodenum are within normal limits. The small bowel loops are nondilated. There is a very large amount of stool identified within the rectal vault. Minimal edema within the adjacent fat is identified surrounding the wall of the rectum and anus. Otherwise, and the colon is essentially unremarkable. Moderate fecal load is evident. No free fluid or loculated fluid collection is identified. There is no free air. Nodes and vessels: No retroperitoneal or mesenteric adenopathy. Aorta and inferior vena cava are normal in caliber. Bones: No acute fracture or suspicious osseous lesion is identified. There mild degenerative changes of the imaged spine. PELVIS: Genitourinary: Bladder wall thickness is normal. The uterus is surgically absent. The ovaries are not definitely seen and may have been surgically removed or atrophic. Miscellaneous: No inguinal hernias or adenopathy. No free fluid or loculated fluid collection is present. Bones: No suspicious bony lesions. No acute pelvic fractures are identified. A sacral stimulator apparatus is incidentally noted. IMPRESSION: 1. Large amount of stool within the colon may represent developing fecal impaction. No bowel obstruction. 2. Mild inflammation adjacent to the rectum may represent proctitis. There is no abscess. Please correlate clinically. 3. The pancreas is within normal limits. 4. Hepatic steatosis. 5. Scarring versus atelectasis within the bilateral posterior costophrenic angles. Dictated by: Krish Egan M.D. on 03/07/2019 at 13:56 Approved by: Krish Egan M.D. on 03/07/2019 at 14:01
[2019-03-07 12:58] VITALS: BP 124/80; PULSE 99; RESP 16; TEMP 35.7; O2SAT 98
--- NOTE | 2019-03-07 13:40 | PC.NURSE ---
Pt has multiple bruises in multiple stages of healing from head to toe. Pt has an area of brusing on right cheek. Pts rectal area and vaginal area are bright red with some open areas with scant amount of blood. During hermelindo care pt very sensitive when we were cleaning the area for Dr Mcdonald to do a rectal exam and insert a catheter. Pts skin is dry and flaking.
[2019-03-07 13:46] LABS: Add Manual Diff / Slide Review NO; Basophils Absolute Auto 100 /uL (0-100); Basophils Percent Auto 0.7 % (0-2); Eosinophils Absolute Auto 100 /uL (0-450); Eosinophils Percent Auto 0.5 % (2-4); Hematocrit 41.6 % (36-46); Hemoglobin 13.7 g/dL (12.0-16.0); Lymphocytes Absolute Auto 1300 /uL (1100-4500); Lymphocytes Percent Auto 12.2 % (25-40); Mean Corpuscular Hemoglobin 33.6 PG (26-34); Monocytes Absolute Auto 800 /uL (0-900); Monocytes Percent Auto 7.3 % (3-14); Neutrophils Absolute Auto 8600 /uL (1500-7000); Neutrophils Percent Auto 79.3 % (50-75); Platelet Count 183 X10^3/uL (150-400); Red Blood Cell Count 4.08 X10^6/uL (4.0-5.2); Red Cell Distribution Width 15.6 % (11.6-14.8); White Blood Cell Count 10.8 X10^3/uL (4.5-11.0)
[2019-03-07 13:56] LABS: Alanine Aminotransferase 208 IU/L (<35); Albumin 3.8 g/dL (3.5-5.0); Albumin Globulin Ratio 1.5 (1.0-2.8); Alkaline Phosphatase 317 U/L (38-126); Aspartate Aminotransferase 159 IU/L (14-36); BUN Creatinine Ratio 37.1 (6-22); Bilirubin Total 0.7 mg/dL (0.2-1.3); Blood Urea Nitrogen 26 mg/dL (7-17); Calcium 9.8 mg/dL (8.4-10.2); Carbon Dioxide 29 mmol/L (22-32); Chloride 111 mmol/L (98-107); Creatine Kinase 31 U/L (30-135); Estimated Glomerular Filt Rate > 60.0 mL/min (>60); Globulin 2.6 g/dL (1.7-4.1); Glucose 252 mg/dL (70-100); HEMOLYSIS < 15 (0-50); Lipase 380 U/L (23-300); Potassium 3.6 mmol/L (3.4-5.1); Sodium 148 mmol/L (137-145); Total Protein 6.4 g/dL (6.3-8.2)
[2019-03-07] MEDS: SODIUM CHLORIDE 0.9% 1,000 ML 150 ML IV ×3 (13:57→22:14)
[2019-03-07 14:08] LABS: Troponin I < 0.012 ng/mL (0.01-0.034)
--- NOTE | 2019-03-07 14:23 | PC.NURSE ---
Pts hermelindo area dried and barrier cream applied to pt
[2019-03-07 16:10] VITALS: BP 130/81; PULSE 113; O2SAT 95
[2019-03-07 17:37] LABS: Lipase 386 U/L (23-300)
[2019-03-07 17:50] VITALS: BP 144/84; PULSE 98; RESP 20; TEMP 35.8; O2SAT 96
--- NOTE | 2019-03-07 18:19 | P.HP_ITS ---
History of Present Illness History of Present Illness Date Patient Seen: 03/07/19 Time Patient Seen: 18:00 Chief complaint: Lower Abd Pain Narrative: 58-year-old female with uncontrolled diabetes, morbid obesity, history of oligodendroglioma and seizure disorder with recent hospitalizations for abdominal pain, rectal bleeding, proctitis and pancreatitis now with r ecurrent lower abdominal pain. She resides at [facility]. Patient is a bit of a difficult historian. It sounds as though her symptoms began today though may have started yesterday with poor appetite. This afternoon she developed lower abdominal pain and states she had not eaten all day. She has had nausea but no vomiting. Caregivers were concerned about blood on her brief however patient denied seeing blood in her stools. In the emergency department she reported that she needed to have a bowel movement. She states she has been doing well until today and enjoys living at [facility]. In the emergency department CT was significant for a large stool burden and inflammation around the rectum suggestive of proctitis. She did pass two stools in the ER but a denied change in her abdominal pain. Labs were significant for mild hypernatremia, transaminitis and elevated lipase though not to the degree that it was in past admissions. She was started on IV fluids and will be admitted for further treatment. Patient History Medical History Anxiety (Chronic) Chicken pox (Resolved ~1966) Cognitive dysfunction (Chronic) Depression (Chronic) Diabetes mellitus type 2, insulin dependent (Chronic ~2007) Fecal incontinence (Chronic) Fractures (Resolved ~2017) GERD without esophagitis (Chronic) Hearing loss (Chronic ~2016) High serum lactate (Chronic) Measles (Resolved ~1963) Oligodendroglioma (Chronic ~2011) Orthostatic hypotension (Chronic) Other and unspecified hyperlipidemia (Chronic) Ovarian cyst (Chronic ~1983) Seizure disorder (Chronic) Urinary incontinence (Chronic ~2015) Vision disorder (Chronic) Surgical History Anesthesia (Resolved) H/O pelvic surgery (Inactive ~2016) History of cholecystectomy (Resolved ~1987) History of hysterectomy (Resolved ~1988) Family & Social History Family History Father Cancer Diabetes mellitus Hypertension Sister Hypertension Sister Cancer Grandfather Heart disease Grandmother Heart disease Social History: household members caregiver,other lives independently Yes caregiver/support person Yes Safety & Behavioral: Feels Safe in Current Yes Environment Been Physically Hurt or No Threatened By a Person Tobacco & Substance use: Smoking Status Former smoker alcohol intake never alcohol intake frequency holiday/special occasion Substance Use Type does not use Meds Home Medications and Allergies Home Medications Medication Instructions Recorded Confirmed Type ondansetron HCl 4 mg tablet 4 mg PO Q6H PRN #30 tab 05/29/18 03/07/19 Rx loperamide 2 mg capsule 2 mg PO Q2-4H PRN #60 cap 10/17/18 03/07/19 Rx pen needle, diabetic 30 gauge x #100 each 11/20/18 03/07/19 Rx 5/16 Robitussin Dm 5 ml PO Q4H PRN 12/09/18 03/07/19 History nystatin 1 applic TOPICAL PRN PRN 12/09/18 03/07/19 History acetaminophen 325 mg tablet 650 mg PO Q4H PRN #90 tab 12/12/18 03/07/19 Rx meclizine 25 mg tablet 25 mg PO Q6H PRN #90 tab 12/12/18 03/07/19 Rx furosemide 40 mg PO DAILY 02/02/19 03/07/19 History lancets 30 gauge #100 each 02/02/19 03/07/19 Rx oxycodone-acetaminophen 1 tab PO BEDTIME PRN #30 tab 02/06/19 03/07/19 Rx aspirin 81 mg tablet,delayed 81 mg PO DAILY #30 tab 03/02/19 03/07/19 Rx release atorvastatin 10 mg tablet 10 mg PO DAILY #30 tab 03/02/19 03/07/19 Rx cholecalciferol (vitamin D3) 1,000 1,000 unit PO DAILY #90 cap 03/02/19 03/07/19 Rx unit capsule citalopram 20 mg tablet 20 mg PO DAILY #90 tab 03/02/19 03/07/19 Rx dexamethasone 2 mg tablet 2 mg PO BID #60 tab 03/02/19 03/07/19 Rx folic acid 400 mcg tablet 0.4 mg PO QPM #90 tab 03/02/19 03/07/19 Rx hydrocortisone acetate 1 % topical 1 applic TOPICAL Q8H PRN #57 gram 03/02/19 03/07/19 Rx cream ibuprofen 400 mg tablet 400 mg PO BID #60 tab 03/02/19 03/07/19 Rx insulin aspart U-100 100 unit/mL 3 unit SUBCUT TID #15 ml 03/02/19 03/07/19 Rx subcutaneous cartridge insulin glargine 100 unit/mL (3 65 unit SUBCUT DAILY #15 ml 03/02/19 03/07/19 Rx mL) subcutaneous pen insulin glargine 100 unit/mL (3 70 unit SUBCUT QPM #15 ml 03/02/19 03/07/19 Rx mL) subcutaneous pen levetiracetam 250 mg tablet 500 mg PO DAILY #60 tab 03/02/19 03/07/19 Rx levetiracetam 250 mg tablet 750 mg PO BEDTIME #90 tab 03/02/19 03/07/19 Rx magnesium oxide 400 mg (241.3 mg 400 mg PO BID #60 tab 03/02/19 03/07/19 Rx magnesium) tablet melatonin 3 mg tablet 6 mg PO BEDTIME #180 tab 03/02/19 03/07/19 Rx midodrine 5 mg tablet 5 mg PO BID #30 tab 03/02/19 03/07/19 Rx omega 6-bia-pcd-fish oil 1,000 mg 1 cap PO DAILY #30 cap 03/02/19 03/07/19 Rx (120 mg-180 mg) capsule omeprazole 20 mg capsule,delayed 20 mg PO BID #180 cap 03/02/19 03/07/19 Rx release potassium chloride 20 mEq 40 meq PO BID #180 tab 03/02/19 03/07/19 Rx tablet,extended release(part/cryst) glucagon (human recombinant) 1 mg See Rx Instructions .ROUTE 03/03/19 03/07/19 Rx solution for injection .COMPLEX #1 each fluconazole [Diflucan] 100 mg PO DAILY 03/07/19 03/07/19 History Allergies Allergy/AdvReac Type Severity Reaction Status Date / Time adhesive tape Allergy Unknown Verified 01/14/19 20:39 Penicillins Allergy Unknown Verified 01/14/19 20:39 silicone Allergy Unknown Verified 01/14/19 20:39 zonisamide Allergy Unknown Verified 01/14/19 20:39 escitalopram AdvReac Unknown Verified 01/14/19 20:39 lamotrigine AdvReac Unknown Verified 01/14/19 20:39 Review of Systems Constitutional Constitutional: Reports fatigue, Denies fever(s) and Reports poor appetite Cardiovascular Cardiovascular: Denies chest pain, Reports leg swelling (Chronic) and Denies shortness of breath Respiratory Respiratory: Denies cough and Denies dyspnea Gastrointestinal Gastrointestinal: Reports abdominal pain, Denies melena, Reports constipation, Reports nausea and Denies vomiting Endocrine Endocrine: Reports fatigue Exam Vital Signs (past 8 hours): - 03/07/19 12:58 03/07/19 16:10 Temperature 96.2 F L Pulse Rate 99 H 113 H Respiratory Rate 16 Blood Pressure 124/80 Blood Pressure [Right Wrist] 130/81 Pulse Oximetry 98 95 Oxygen Delivery Method Room Air Narrative Exam Narrative: General: Morbidly obese, chronically ill-appearing woman appearing older than stated age. Resting comfortably in bed. HEENT: NCAT, EOMI, dry lips and oral mucosa CV: Regular rate and rhythm Lungs: CTAB anteriorly Abdomen: Large obese abdomen. Bowel tones present. Diffusely tender to p alpation throughout without guarding. Genitourinary: Erythema of bilateral buttocks without open ulcers. Extremities: Warm, 1+ pitting edema bilaterally, 2+ pedal pulses Neuro: Oriented to self. Asks where she is. Judgment and insight fair. Objective Imaging CT scan - abdomen: My impression: Large stool burden without obstruction, inflammation around the rectum consistent with proctitis, normal pancreas, hepatic steatosis Chest x-ray: My impression: Cardiomegaly without heart failure, no pneumonia Labs Result Diagrams: 03/07/19 13:35 03/07/19 13:35 Labs: Laboratory Results - last 24 hr 03/07/19 03/07/19 03/07/19 13:35 13:35 13:35 WBC 10.8 RBC 4.08 Hgb 13.7 Hct 41.6 MCV 102.0 H MCH 33.6 MCHC 33.0 RDW 15.6 H Plt Count 183 Neut % (Auto) 79.3 H Lymph % (Auto) 12.2 L [place] % (Auto) 7.3 Eos % (Auto) 0.5 L Baso % (Auto) 0.7 Neut # (Auto) 8600 H Lymph # (Auto) 1300 [place] # (Auto) 800 Eos # (Auto) 100 Baso # (Auto) 100 Sodium 148 H Potassium 3.6 Chloride 111 H Carbon Dioxide 29 BUN 26 H Creatinine 0.70 Estimated GFR > 60.0 BUN/Creatinine Ratio 37.1 H Glucose 252 H Calcium 9.8 Total Bilirubin 0.7 AST 159 H ALT 208 H Alkaline Phosphatase 317 H Total Creatine Kinase 31 CK-MB (CK-2) TNP CK-MB (CK-2) Rel Index TNP Troponin I < 0.012 Total Protein 6.4 Albumin 3.8 Globulin 2.6 Albumin/Globulin Ratio 1.5 Lipase 380 H Blood Type O Positive Antibody Screen Negative 03/07/19 13:35 WBC RBC Hgb Hct MCV MCH MCHC RDW Plt Count Neut % (Auto) Lymph % (Auto) [place] % (Auto) Eos % (Auto) Baso % (Auto) Neut # (Auto) Lymph # (Auto) [place] # (Auto) Eos # (Auto) Baso # (Auto) Sodium Potassium Chloride Carbon Dioxide BUN Creatinine Estimated GFR BUN/Creatinine Ratio Glucose Calcium Total Bilirubin AST ALT Alkaline Phosphatase Total Creatine Kinase CK-MB (CK-2) CK-MB (CK-2) Rel Index Troponin I Total Protein Albumin Globulin Albumin/Globulin Ratio Lipase 386 H Blood Type Antibody Screen Assessment & Plan Assessment and plan (1) Acute dehydration: Current visit: Yes Status: Acute (2) Constipation: Current visit: Yes Status: Acute (3) Proctitis: Current visit: Yes Status: Acute (4) Pancreatitis: Current visit: Yes Status: Acute (5) Abdominal pain: Current visit: Yes Status: Acute (6) 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 Echols Oncology, Dr. Rodney Neuro Current visit: No Status: Chronic (7) Diabetes mellitus type 2, insulin dependent: Current visit: No Status: Chronic (8) Seizure disorder: Current visit: No Status: Chronic (9) Cognitive dysfunction: Problem details: due to chemo/xrt Current visit: No Status: Chronic (10) GERD without esophagitis: Current visit: No Status: Chronic Assessment & Plan narrative: Patient is an unfortunate 58-year-old female with type 2 diabetes, morbid obesity, history of oligodendroglioma, GERD, seizure disorder with recent hospitalizations for proctitis, pancreatitis and rectal bleeding. Today she has lower abdominal pain and significant constipation which I suspect is the source of her abdominal pain. She also appears quite de hydrated and has not been eating for at least a day or 2. Acute dehydration: Continue IV fluid support, will advance diet as tolerated. Pancreatitis: She may be at the start of another bout of pancreatitis. Will give IV fluid support as above and recheck lipase. Transaminitis: Repeat labs tomorrow, likely due to dehydration as well as early pancreatitis. Constipation: Patient has started to move her bowels on her own. Will be cautious with constipation medications since she has had problems with diarrhea in the past. Diabetes: Will start with Lantus 45 units b.i.d. since she is not eating and provide a medium sliding scale. Historically blood sugars have been quite difficult to control. Oligodendroglioma: Continue dexamethasone. Seizure disorder: Continue usual Keppra. Diet: Clear liquids DVT prophylaxis: SCDs, will hold on Lovenox due to reports of blood in stools a nd known proctitis Code status: DNR. This was reviewed and confirmed with patient. There is a POLST in the chart. Disposition: I anticipate the care of this patient to cross 2 midnights due to her medical complexity as well as recent hospitalizations for similar issues.
[2019-03-07 18:54] VITALS: BMI 43.2
[2019-03-07 20:44] VITALS: BP 128/75; PULSE 93; RESP 18; TEMP 35.9; O2SAT 95
[2019-03-07] MEDS: dexAMETHasone 1 MG TABLET 2 MG PO (21:23)
[2019-03-07] MEDS: OXYCODONE IR 5 MG TABLET PO (21:23)
[2019-03-07] MEDS: levETIRAcetam 250 MG TABLET 750 MG PO (21:27)
[2019-03-07] MEDS: MELATONIN 3 MG TABLET PO (21:28)
[2019-03-07] MEDS: PANTOPRAZOLE 20 MG TABLET PO (21:28)
[2019-03-07] MEDS: POTASSIUM CHLORIDE 20 MEQ TAB 40 MEQ PO (21:28)
[2019-03-07] MEDS: MIDODRINE HCL 5 MG TABLET PO (21:28)
[2019-03-07] MEDS: INSULIN GLARGINE 100 UNIT/ML 3ML PEN 45 UNIT SUBCUT (21:33)
[2019-03-07] MEDS: INSULIN ASPART 100 UNIT/ML INSULN PEN SUBCUT (21:41)
[2019-03-07 23:00] VITALS: O2SAT 98
[2019-03-07 23:30] VITALS: BP 124/81; PULSE 87; RESP 16; TEMP 36.9; O2SAT 99
[2019-03-08] VITALS (8 sets, daily range): BP systolic 109–150; BP diastolic 63–83; PULSE 65–75; RESP 15–20; TEMP 35.9–37; O2SAT 96–99
[2019-03-08] MEDS: SODIUM CHLORIDE 0.9% 1,000 ML 150 ML IV (03:26)
[2019-03-08 06:12] LABS: Add Manual Diff / Slide Review NO; Basophils Absolute Auto 0 /uL (0-100); Basophils Percent Auto 0.4 % (0-2); Eosinophils Absolute Auto 0 /uL (0-450); Eosinophils Percent Auto 0.3 % (2-4); Hematocrit 38.6 % (36-46); Hemoglobin 12.8 g/dL (12.0-16.0); Lymphocytes Absolute Auto 1700 /uL (1100-4500); Mean Corpuscular HGB Conc 33.3 % (30-36); Mean Corpuscular Hemoglobin 33.7 PG (26-34); Mean Corpuscular Volume 101.1 fL (80-100); Monocytes Absolute Auto 600 /uL (0-900); Monocytes Percent Auto 6.5 % (3-14); Neutrophils Absolute Auto 6200 /uL (1500-7000); Neutrophils Percent Auto 72.8 % (50-75); Platelet Count 174 X10^3/uL (150-400); Red Blood Cell Count 3.81 X10^6/uL (4.0-5.2); Red Cell Distribution Width 15.2 % (11.6-14.8); White Blood Cell Count 8.5 X10^3/uL (4.5-11.0)
[2019-03-08 06:24] LABS: Alanine Aminotransferase 194 IU/L (<35); Albumin 3.5 g/dL (3.5-5.0); Albumin Globulin Ratio 1.5 (1.0-2.8); Alkaline Phosphatase 264 U/L (38-126); Aspartate Aminotransferase 129 IU/L (14-36); Bilirubin Total 0.6 mg/dL (0.2-1.3); Blood Urea Nitrogen 21 mg/dL (7-17); Calcium 8.9 mg/dL (8.4-10.2); Carbon Dioxide 27 mmol/L (22-32); Chloride 110 mmol/L (98-107); Estimated Glomerular Filt Rate > 60.0 mL/min (>60); Globulin 2.4 g/dL (1.7-4.1); Glucose 158 mg/dL (70-100); HEMOLYSIS < 15 (0-50); Lipase 216 U/L (23-300); Potassium 3.8 mmol/L (3.4-5.1); Sodium 143 mmol/L (137-145); Total Protein 5.9 g/dL (6.3-8.2)
--- NOTE | 2019-03-08 09:13 | CM.DANOTE ---
Addendum entered by Georgette Barnard LPN 03/08/19 11:36: Dr. Jose's progress note from today is now available and reviewed. DC tomorrow is anticipated and have alerted Lauryn/[facility] to same. She states she will send over social work administrator Moose tomorrow morning to see pt for assessment as per their protocol. She further states that the [facility] team plans to reach out to pt's family and begin a discussion of Hospice care option at the facility. Encouraged same. P: likely return to [facility] tomorrow as per above. Original Note: Discharge Planning/Care Management DCP: assessment: case received, EMR reviewe and met briefly with pt. Introduced self and role. Pt is a 58 year old female who admitted last evening to care of Dr. Jose. PCP: Dr. Vaughn Payer: Medicare and Medicaid. OF note: per prior DCP info Pt is followed by [facility] at the [facility]/see template below. Pt was able to confirm she resides at [facility] (AKA: [facility]) but otherwise information given is a bit muddled. Pt reported she lives at [facility] for a long time before moving a few days ago to . READMIT: noted: pt was just here at 01/31-02/07 and those DCP notes are reviewed. Pt was d/c'd 02/07 to [facility]. Placed a call to [facility] to obtain clarity re all this: she reports pt has lived for a long time at [facility]. At last admission she did go to [facility] for a week and then transferred to [facility] for another couple of weeks under her Medicare snf beneft. She was deemed stable for a return to [facility] on 03/02 and returned to that facility on that day. She now admits again to the hospital. DCP team will follow as POC unfolds...Anticipate pt will return to the [facility] setting unless her needs again require snf. CM Discharge Assessment Start: 03/08/19 09:08 Freq: Status: Active Protocol: Document 03/08/19 09:08 IT (Rec: 03/08/19 09:13 IT [email or web address]) Discharge Planning Assessment Advance Directives? Yes: POLST Advance Directives on File Yes History Provided By Patient,Medical Record Has Patient been admitted in last 30 Yes days? Prior Living Arrangements Assisted Living Type of transporation used prior to Relies on Others admit Facility Name Admitted From: [facility] Willing to Return to Facility? Yes Independent with ADL's No Is patient alert and oriented? ? historian Additional Comment Patient is enrolled in [facility] program. They check on patient monthly at [facility]. Contact is Ajay Lazo # [phone]. Whiteboard Updated in Patient Room with Yes name and ext. # of [employer] Review Status In Process
[2019-03-08] MEDS: MIDODRINE HCL 5 MG TABLET PO ×2 (09:23→22:14)
[2019-03-08] MEDS: CITALOPRAM 20 MG TABLET PO (09:23)
[2019-03-08] MEDS: FLUCONAZOLE 100 MG TABLET PO (09:23)
[2019-03-08] MEDS: FISH OIL 1,000 MG CAPSULE 1000 MG PO (09:23)
[2019-03-08] MEDS: levETIRAcetam 250 MG TABLET 500 MG PO (09:23)
[2019-03-08] MEDS: dexAMETHasone 1 MG TABLET 2 MG PO ×2 (09:24→22:13)
[2019-03-08] MEDS: POTASSIUM CHLORIDE 20 MEQ TAB 40 MEQ PO ×2 (09:24→22:13)
[2019-03-08] MEDS: PANTOPRAZOLE 20 MG TABLET PO ×2 (09:26→22:16)
[2019-03-08] MEDS: INSULIN ASPART 100 UNIT/ML INSULN PEN SUBCUT ×4 (09:27→22:24)
[2019-03-08] MEDS: INSULIN GLARGINE 100 UNIT/ML 3ML PEN 45 UNIT SUBCUT ×3 (09:27→22:25)
--- NOTE | 2019-03-08 09:34 | P.PN_ITS ---
Subjective Subjective Date Patient Seen: 03/08/19 Time Patient Seen: 08:34 Interval history: Patient has no complaints this morning and states she feels better. Abdominal pain has resolved. She is eagerly eating Jell-O for breakfast. Her primary concern is how to turn on the TV. No concerns from nursing this morning. Exam Vital Signs (past 8 hours): - 03/08/19 06:00 03/08/19 07:40 03/08/19 08:20 Temperature 97.9 F 97.2 F L Pulse Rate 67 75 Respiratory Rate 15 20 Blood Pressure 136/83 150/75 H Pulse Oximetry 98 97 97 Oxygen Delivery Method Room Air Oxygen Flow Rate 0 Narrative Exam Narrative: General: Morbidly obese, chronically ill-appearing woman with cushingoid features. In bed eating Jell-O, patient will not pause from eating for me to examine her. HEENT: NCAT, EOMI, moist oral mucosa CV: Regular rate and rhythm Lungs: CTAB anteriorly Abdomen: Large obese abdomen. Bowel tones present. Mildly tender to palpation however when I ask her where it hurts she states ?TV? Extremities: Warm, 2+ pitting edema bilaterally Neuro: Oriented to self only. States the year is 1918. Believes she is in ?the place with the TVs? period Objective Labs Result Diagrams: 03/08/19 05:39 03/08/19 05:39 Labs: Laboratory Results - last 24 hr 03/07/19 03/07/19 03/07/19 13:35 13:35 13:35 WBC 10.8 RBC 4.08 Hgb 13.7 Hct 41.6 MCV 102.0 H MCH 33.6 MCHC 33.0 RDW 15.6 H Plt Count 183 Neut % (Auto) 79.3 H Lymph % (Auto) 12.[address] [place] % (Auto) 7.3 Eos % (Auto) 0.5 L Baso % (Auto) 0.7 Neut # (Auto) 8600 H Lymph # (Auto) 1300 [place] # (Auto) 800 Eos # (Auto) 100 Baso # (Auto) 100 Sodium 148 H Potassium 3.6 Chloride 111 H Carbon Dioxide 29 BUN 26 H Creatinine 0.70 Estimated GFR > 60.0 BUN/Creatinine Ratio 37.1 H Glucose 252 H Calcium 9.8 Total Bilirubin 0.7 AST 159 H ALT 208 H Alkaline Phosphatase 317 H Total Creatine Kinase 31 CK-MB (CK-2) TNP CK-MB (CK-2) Rel Index TNP Troponin I < 0.012 Total Protein 6.4 Albumin 3.8 Globulin 2.6 Albumin/Globulin Ratio 1.5 Lipase 380 H Blood Type O Positive Antibody Screen Negative 03/07/19 03/08/19 03/08/19 13:35 05:39 05:39 WBC 8.5 RBC 3.81 L Hgb 12.8 Hct 38.6 MCV 101.1 H MCH 33.7 MCHC 33.3 RDW 15.2 H Plt Count 174 Neut % (Auto) 72.8 Lymph % (Auto) 20.[address] [place] % (Auto) 6.5 Eos % (Auto) 0.3 L Baso % (Auto) 0.4 Neut # (Auto) 6200 Lymph # (Auto) 1700 [place] # (Auto) 600 Eos # (Auto) 0 Baso # (Auto) 0 Sodium 143 Potassium 3.8 Chloride 110 H Carbon Dioxide 27 BUN 21 H Creatinine 0.60 Estimated GFR > 60.0 BUN/Creatinine Ratio 35.0 H Glucose 158 H Calcium 8.9 Total Bilirubin 0.6 AST 129 H ALT 194 H Alkaline Phosphatase 264 H Total Creatine Kinase CK-MB (CK-2) CK-MB (CK-2) Rel Index Troponin I Total Protein 5.9 L Albumin 3.5 Globulin 2.4 Albumin/Globulin Ratio 1.5 Lipase 386 H 216 Blood Type Antibody Screen Assessment & Plan Assessment and plan (1) Acute dehydration: Current visit: Yes Status: Acute (2) Constipation: Current visit: Yes Status: Acute (3) Proctitis: Current visit: Yes Status: Acute (4) Pancreatitis: Current visit: Yes Status: Acute (5) Abdominal pain: Current visit: Yes Status: Acute (6) 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 Echols Oncology, Dr. Rodney Neuro Current visit: No Status: Chronic (7) Diabetes mellitus type 2, insulin dependent: Current visit: No Status: Chronic (8) Seizure disorder: Current visit: No Status: Chronic (9) Cognitive dysfunction: Problem details: due to chemo/xrt Current visit: No Status: Chronic (10) GERD without esophagitis: Current visit: No Status: Chronic Assessment & Plan narrative: Patient is an unfortunate 58-year-old female with type 2 diabetes, morbid obesity, history of oligodendroglioma with cognitive impairment, GERD, seizure disorder with recent hospitalizations for proctitis, pancreatitis and rectal bleeding. This admission appears to be due to dehydration and constipation. There was some concern for pancreatitis though her lipase was quite mildly elevated. Acute dehydration: Resolved with IV fluids. Will decrease her rate and encourage oral intake. Pancreatitis: Lipase improved. Denies epigastric pain. Transaminitis: Down trending after IV fluids, suspect due to fatty liver. Constipation: Pain improved after two large bowel movements yesterday. Diabetes: Fasting blood sugar surprisingly well controlled this morning. Continue Lantus 45 units b.i.d. though she receives quite a bit more than this when eating a full diet. Oligodendroglioma: Continue dexamethasone. Known cognitive impairment secondary to chemotherapy and radiation though I believe this is her baseline. Seizure disorder: Continue usual Keppra. Diet: Advance diet as tolerated. DVT prophylaxis: SCDs, will hold on Lovenox due to reports of blood in stools and known proctitis Code status: DNR. This was reviewed and confirmed with patient. There is a POLST in the chart. Disposition: Given her medical complexity and multiple recent admissions, will observe her in the hospital another day to ensure that she tolerates a diet and her abdominal pain does not recur. I suspect abdominal pain was due to constipation and impending fecal impaction which has now improved. She should be able to discharge back to [facility] tomorrow.
[2019-03-08] MEDS: SODIUM CHLORIDE 0.9% 1,000 ML 100 ML IV (10:12)
[2019-03-08] MEDS: DOCUSATE 100 MG CAPSULE 200 MG PO (10:13)
--- NOTE | 2019-03-08 11:49 | PT-IP ANOTE ---
PT orders received. This PT confirmed today with [facility] that - in spite of recent SNF stay - pt is dependent for all mobility, uses a frida lift for transfers and is non-ambulatory. She uses a manual w/c which she is able to propel on her own, but frequently chooses not to and waits for assistance. Pt remains at her functional baseline. If there is a change in status, PT would be happy to re-evaluate.
[2019-03-08] MEDS: MELATONIN 3 MG TABLET PO (22:12)
[2019-03-08] MEDS: levETIRAcetam 250 MG TABLET 750 MG PO (22:12)
[2019-03-09] MEDS: PANTOPRAZOLE 20 MG TABLET PO (05:51)
[2019-03-09] MEDS: SODIUM CHLORIDE 0.9% 1,000 ML 100 ML IV (05:52)
[2019-03-09 06:00] VITALS: BP 136/89; PULSE 67; RESP 16; TEMP 35.9; O2SAT 97
[2019-03-09 06:18] LABS: Alanine Aminotransferase 157 IU/L (<35); Albumin Globulin Ratio 1.4 (1.0-2.8); Alkaline Phosphatase 213 U/L (38-126); Aspartate Aminotransferase 111 IU/L (14-36); Bilirubin Total 0.6 mg/dL (0.2-1.3); Blood Urea Nitrogen 14 mg/dL (7-17); Calcium 8.6 mg/dL (8.4-10.2); Carbon Dioxide 23 mmol/L (22-32); Chloride 108 mmol/L (98-107); Estimated Glomerular Filt Rate > 60.0 mL/min (>60); Globulin 2.2 g/dL (1.7-4.1); Glucose 154 mg/dL (70-100); HEMOLYSIS < 15 (0-50); Sodium 137 mmol/L (137-145); Total Protein 5.2 g/dL (6.3-8.2)
--- NOTE | 2019-03-09 07:38 | PC.NURSE ---
Addendum entered by Jacqueline Mohamud R.N. 03/09/19 15:20: Transfer to [facility]: IV dc'd intact. Brief changed w/ hermelindo care just prior to frida lifting into wheelchair. Transfer orders in packet in patient belongings bag (including script for Percocet). All belongings sent with patient. Taken out in wheelchair by [facility] transport staff, report called to Marcela at [facility]. Addendum entered by Jacqueline Mohamud R.N. 03/09/19 11:04: Oriented to self/place. Calm and cooperative with care interventions. Denies abdominal pain and is tolerating her diet without issue. Incontinent of B/B, brief in place. Lungs CTA, dim bases. HRR. Plan is for her to return to [facility] this afternoon and patient is agreeable. Resting quietly now. Light in reach, bed alarm on. Addendum entered by Jacqueline Mohamud R.N. 03/09/19 09:50: CBG 129 before meal. Ate 100% of her breakfast. 45 units Lantus given per e-mar, checked with second RN Julio. For some reason it's not showing up on the e-mar as given, but it was admin at this time by this senior medical writer. Original Note: Shift summary: Resting quietly in bed with eyes closed. Respirations regular and unlabored. IVF per orders, site in L FA WNL. Will allow to rest and complete full assessment when awake. Call light within reach, bed alarm on.
--- NOTE | 2019-03-09 08:32 | P.DS_ITS ---
History of Present Illness History of Present Illness Date Patient Seen: 03/09/19 Time Patient Seen: 08:33 Chief complaint: Lower Abd Pain Narrative: 58-year-old female with uncontrolled diabetes, morbid obesity, history of oligodendroglioma and seizure disorder with recent hospitalizations for abdominal pain, rectal bleeding, proctitis and pancreatitis now with recurrent lower abdominal pain. She resides at [facility]. Patient is a bit of a difficult historian. It sounds as though her symptoms began today though may have started yesterday with poor appetite. This afternoon she developed lower abdominal pain and states she had not eaten all day. She has had nausea but no vomiting. Caregivers were concerned about blood on her brief however patient de nied seeing blood in her stools. In the emergency department she reported that she needed to have a bowel movement. She states she has been doing well until today and enjoys living at [facility]. In the emergency department CT was significant for a large stool burden and inflammation around the rectum suggestive of proctitis. She did pass two stools in the ER but a denied change in her abdominal pain. Labs were significant for mild hypernatremia, transaminitis and elevated lipase though not to the degree that it was in past admissions. She was started on IV fluids and will be admitted for further treatment. {from Dr. Jose's H&P 03/07/19} Discharge Providers Provider Date of admission: 03/07/19 17:48 Discharge Date: 03/09/19 Primary care physician: Naveen Vaughn MD Consults: 03/07/19 18:30 Consult to Discharge Planning Routine Comment: Consult to Physical Therapy Evaluate & Treat Comment: Physician Instructions: Evaluate and Treat Discharge provider: Naveen Vaughn MD Summary Hospital Course Discharge Diagnosis: 1. Abdominal pain of uncertain etiology, resolved 2. Acute dehydration, resolved 3. Constipation, resolved 4. Chronic pancreatitis, unchanged from baseline 5. Oligodendroglioma 6. Type 2 diabetes on insulin 7. Seizure disorder due to 5. Above 8. Obesity with BMI 43.8 9. GERD Hospital Course: Patient was brought from her care facility over concerns about abdominal pain and possible blood in the stool. However no blood was actually identified any point in her stool or from her GI tract. She had abdominal pain that seemed to resolve completely with bowel movements it occurred shortly before she was transferred to the floor for evaluation Lab work was essentially unremarkable. She had perhaps minimal bump in her LFTs compared to baseline. Her lipase remained abnormal which it has for an extended period of time. No clear etiology for either these biochemical abnormalities has been discovered. Patient has not been seen by GI Patient has had return of appetite and blood sugars well controlled. She seemed to be back to baseline When patient was last hospitalized here at [facility] she was transferred from [facility] to nursing home for continued rehabilitation but despite that apparently she remains incapable of assisting with any sort of transfers and certainly unable to ambulate to provide any additional assistance at her current care facility. She has been back at the assisted living facility for less than a week prior to readmission to the hospital (in fact only several days), which makes me concerned about the ability of the care facility at which she is currently residing to continue to manage her care over time. I will discuss ongoing care issues with the staff at the assisted living facility but for now we have no other options as she is not got any medical issues require continued inpatient hospitalization nor did she have anything that would be appropriate for nursing home placement either. Therefore she will return to assisted living hopefully they can provide her the care that she requires in that facility There has been a question about implying hospice here which seems like an excellent option to me as well. Patient seems in agreement although her mental status waxes and wanes it is difficult to know if she is fully understanding everything. Her parents will need to be consulted in this regard as well. Unfortunately they are currently residing in [place] which makes contact somewhat difficult At the moment she is medically stable and ready for discharge from [facility]. She will return to her assisted living facility for continued management of her medical issues as above. Status at Discharge Cognitive/behavioral status at discharge: at baseline, confused Functional status at discharge: bed bound Overall status at discharge: patient is back to baseline Time Spent with Patient Time spent: Greater than 30 minutes Exam Vital Signs (past 8 hours): - 03/09/19 06:00 Temperature 96.7 F L Pulse Rate 67 Respiratory Rate 16 Blood Pressure 136/89 Pulse Oximetry 97 Oxygen Delivery Method Room Air Oxygen Flow Rate 0 Objective Labs Result Diagrams: 03/08/19 05:39 03/09/19 05:34 Labs: Laboratory Results - last 24 hr 03/09/19 05:34 Sodium 137 Potassium 4.0 Chloride 108 H Carbon Dioxide 23 BUN 14 Creatinine 0.50 L Estimated GFR > 60.0 BUN/Creatinine Ratio 28.0 H Glucose 154 H Calcium 8.6 Total Bilirubin 0.6 AST 111 H ALT 157 H Alkaline Phosphatase 213 H Total Protein 5.2 L Albumin 3.0 L Globulin 2.2 Albumin/Globulin Ratio 1.4 Discharge Plan Discharge Plan Patient Disposition: Assisted Living Other facility: [facility] Under care of provider: Tito Consult as needed: Dental, Hearing, Mental health, Podiatry and Vision Discharge Med Rec/Prescriptions Prescriptions: New Benefiber Sugar Free (dextrin) 3 gram/4 gram powder in packet 1 packet PO DAILY Qty: 28 RF: 3 Continued ondansetron HCl 4 mg tablet 4 mg PO Q6H PRN (Reason: Nausea And Vomiting) Qty: 30 RF: 0 loperamide [Imodium A-D] 2 mg capsule 2 mg PO Q2-4H PRN (Reason: loose stool) Qty: 60 RF: 0 (DME) Easy Touch Pen Needle 30 gauge x 5/16 needle See Dose Instructions .ROUTE .MEDSUPPLY Qty: 100 RF: 1 meclizine 25 mg tablet 25 mg PO Q6H PRN (Reason: dizziness or vertigo) Qty: 90 RF: 3 acetaminophen 325 mg tablet 650 mg PO Q4H PRN (Reason: Fever Or Pain) Qty: 90 RF: 0 (DME) lancets [TRUEplus Lancets] 30 gauge misc See Rx Instructions .ROUTE .MEDSUPPLY Qty: 100 RF: 3 hydrocortisone acetate 1 % cream 1 applic TOPICAL Q8H PRN (Reason: Rash) Qty: 57 RF: 0 midodrine 5 mg tablet 5 mg PO BID Qty: 30 RF: 8 dexamethasone 2 mg tablet 2 mg PO BID Qty: 60 RF: 11 citalopram 20 mg tablet 20 mg PO DAILY Qty: 90 RF: 1 omega [id number]-fish oil [Fish Oil] 1,000 mg (120 mg-180 mg) capsule 1 cap PO DAILY Qty: 30 RF: 8 cholecalciferol (vitamin D3) 1,000 unit capsule 1,000 unit PO DAILY Qty: 90 RF: 3 Basaglar KwikPen U-100 Insulin 100 unit/mL (3 mL) insulin pen 70 unit subcut QPM Qty: 15 RF: 11 aspirin 81 mg tablet,delayed release (DR/EC) 81 mg PO DAILY Qty: 30 RF: 11 folic acid 400 mcg tablet 0.4 mg PO QPM Qty: 90 RF: 1 levetiracetam 250 mg tablet 500 mg PO DAILY Qty: 60 RF: 8 levetiracetam 250 mg tablet 750 mg PO BEDTIME Qty: 90 RF: 8 atorvastatin 10 mg tablet 10 mg PO DAILY Qty: 30 RF: 12 Basaglar KwikPen U-100 Insulin 100 unit/mL (3 mL) insulin pen 65 unit subcut DAILY Qty: 15 RF: 12 potassium chloride 20 mEq tablet,ER particles/crystals 40 meq PO BID Qty: 180 RF: 3 omeprazole 20 mg capsule,delayed release(DR/EC) 20 mg PO BID Qty: 180 RF: 1 ibuprofen 400 mg tablet 400 mg PO BID Qty: 60 RF: 3 magnesium oxide 400 mg (241.3 mg magnesium) tablet 400 mg PO BID Qty: 60 RF: 5 melatonin 3 mg tablet 6 mg PO BEDTIME Qty: 180 RF: 0 Novolog PenFill U-100 Insulin 100 unit/mL cartridge 3 unit SUBCUT TID Qty: 15 RF: 12 glucagon (human recombinant) 1 mg recon soln See Rx Instructions .ROUTE .COMPLEX Qty: 1 RF: 0 nystatin 100,000 unit/gram powder 1 applic topical PRN PRN (Reason: Rash) RF: 0 Robitussin Dm 5 ml PO Q4H PRN (Reason: Cough) RF: 0 furosemide 40 mg tablet 40 mg PO DAILY RF: 0 fluconazole [Diflucan] 100 mg Tablet 100 mg PO DAILY RF: 0 oxycodone-acetaminophen 5-325 mg tablet 1 tab PO BEDTIME PRN (Reason: moderate pain/discomfort) Qty: 30 RF: 0 Follow up/Referrals: Naveen Vaughn MD [Primary Care Provider] - Discharge Orders: Discharge (Order); Ordered 03/09/19 Ordered By: Naveen Vaughn Discharge Health Status Multidrug resistant organism: No MDRO Precautions: [place] Provider Discharge Instructions Diet: Carb-consistent/Diabetic Liquid consistency: Normal/Thin Food texture: Regular Discharge Data Primary Care Provider: Naveen Vaughn Attending Provider: Naveen Vaughn Admit Date/Time: 03/07/19 17:48
[2019-03-09 08:44] VITALS: O2SAT 98
[2019-03-09 08:52] VITALS: BP 128/72; PULSE 65; RESP 18; TEMP 36; O2SAT 98
--- NOTE | 2019-03-09 08:54 | CM.DPC ---
DCP Cont: Moose from [facility] came by the care management office, introduced his self and assessed patient. He then came back and stated that patient can be accepted back to their facility today. Spoke to Dr. Vaughn, and updated him. He did have some concerns and wanted to speak to DNS at [facility]. Was able to get in touch with Moose, and he stated that Dr. Vaughn can call him. Gave him Moose's phone number. Will fax over DC summary and med list to [facility] when complete, and will call them with a cotton picker time. Marbella Hope RN/Wool Shearing Supervisor
[2019-03-09] MEDS: POTASSIUM CHLORIDE 20 MEQ TAB 40 MEQ PO (09:29)
[2019-03-09] MEDS: dexAMETHasone 1 MG TABLET 2 MG PO (09:30)
[2019-03-09] MEDS: CITALOPRAM 20 MG TABLET PO (09:30)
[2019-03-09] MEDS: FISH OIL 1,000 MG CAPSULE 1000 MG PO (09:30)
[2019-03-09] MEDS: FLUCONAZOLE 100 MG TABLET PO (09:31)
[2019-03-09] MEDS: MIDODRINE HCL 5 MG TABLET PO (09:31)
[2019-03-09] MEDS: levETIRAcetam 250 MG TABLET 500 MG PO (09:32)
[2019-03-09] MEDS: DOCUSATE 100 MG CAPSULE 200 MG PO (09:33)
[2019-03-09] MEDS: INSULIN GLARGINE 100 UNIT/ML 3ML PEN 45 UNIT SUBCUT (09:47)
--- NOTE | 2019-03-09 10:07 | CM.DPC ---
DCP Cont: Faxed signed meds and discharge summary [facility] at fax # [phone]. Fax confirmation scanned in. Ines Mcneil, Care Adhesive Primer
[2019-03-09 12:00] VITALS: BP 136/68; PULSE 69; RESP 18; TEMP 36.2; O2SAT 97
[2019-03-09] MEDS: INSULIN ASPART 100 UNIT/ML INSULN PEN SUBCUT (12:46)
== END 2019-03-09 15:22 ==
LOC: ED 16:15 → AC 17:49
PROVIDERS: Admitting Provider Family Medicine; Emergency Provider Emergency Medicine; PCP Internal Medicine; Visit Provider Internal Medicine
DX: R10.9 Unspecified abdominal pain (principal); E86.0 Dehydration; K59.00 Constipation, unspecified; K86.1 Other chronic pancreatitis; C71.9 Malignant neoplasm of brain, unspecified; E11.9 Type 2 diabetes mellitus without complications; Z79.4 Long term (current) use of insulin; G40.909 Epilepsy, unspecified, not intractable, without status epilepticus; K21.9 Gastro-esophageal reflux disease without esophagitis; F09 Unspecified mental disorder due to known physiological condition; R07.9 Chest pain, unspecified; E66.9 Obesity, unspecified; Z68.41 Body mass index [BMI] 40.0-44.9, adult
CPT/HCPCS: 36415; 71045; 74177; 80053; 81003; 82550; 82962; 83690; 84484; 85025; 86850; 86900; 86901; 93005; 93010; 96360; 96361; 96372; 99217; 99220; 99234; 99285; G0378; A9270; Q9967

== ENCOUNTER 2019-03-18 01:38 | Inpatient (IN) | payer MEDICARE, MEDICAID, SELFPAY ==
[2019-03-18] VITALS (8 sets, daily range): BP systolic 98–134; BP diastolic 49–82; PULSE 68–94; RESP 15–21; TEMP 36.2–37.2; O2SAT 94–98; BMI 49.1
--- NOTE | 2019-03-18 02:02 | ED.GIBLEED ---
HPI - GI Bleed General Chief complaint: GI Bleed Stated complaint: GI Bleed Time Seen by Provider: 03/18/19 01:44 Source: patient Mode of arrival: EMS Limitations: altered mental status History of Present Illness HPI Narrative: The patient resides in [facility]. She has frequent visits to the ER and frequent admissions to the hospital. She has a history of seizure disorder, cognitive dysfunction, DM 2, and recent admission for GI bleed/proctitis. The patient does not feel well, but denies fever chills. She has no sore throat, chest pain or dyspnea. She has no abdominal complaints. She does feel generalized weakness. She denies dysuria. She has prior history of UTI, in December 2018 she had an E coli UTI with resistance to Levaquin/Cipro. Liver that month she had an Enterobacter resistant to many antibiotics, but sensitive to Levaquin. She has no complaints of skin rash. Related Data Home Medications Medication Instructions Recorded Confirmed Robitussin Dm 5 ml PO Q4H PRN 12/09/18 03/07/19 nystatin 1 applic TOPICAL PRN PRN 12/09/18 03/07/19 furosemide 40 mg PO DAILY 02/02/19 03/07/19 Previous Rx's Medication Instructions Recorded ondansetron HCl 4 mg tablet 4 mg PO Q6H PRN #30 tab 05/29/18 loperamide 2 mg capsule 2 mg PO Q2-4H PRN #60 cap 10/17/18 pen needle, diabetic 30 gauge x #100 each 11/20/18/ acetaminophen 325 mg tablet 650 mg PO Q4H PRN #90 tab 12/12/18 meclizine 25 mg tablet 25 mg PO Q6H PRN #90 tab 12/12/18 lancets 30 gauge #100 each 02/02/19 aspirin 81 mg tablet,delayed 81 mg PO DAILY #30 tab 03/02/19 release atorvastatin 10 mg tablet 10 mg PO DAILY #30 tab 03/02/19 cholecalciferol (vitamin D3) 1,000 1,000 unit PO DAILY #90 cap 03/02/19 unit capsule citalopram 20 mg tablet 20 mg PO DAILY #90 tab 03/02/19 dexamethasone 2 mg tablet 2 mg PO BID #60 tab 03/02/19 folic acid 400 mcg tablet 0.4 mg PO QPM #90 tab 03/02/19 hydrocortisone acetate 1 % topical 1 applic TOPICAL Q8H PRN #57 gram 03/02/19 cream ibuprofen 400 mg tablet 400 mg PO BID #60 tab 03/02/19 insulin aspart U-100 100 unit/mL 3 unit SUBCUT TID #15 ml 03/02/19 subcutaneous cartridge insulin glargine 100 unit/mL (3 65 unit SUBCUT DAILY #15 ml 03/02/19 mL) subcutaneous pen insulin glargine 100 unit/mL (3 70 unit SUBCUT QPM #15 ml 03/02/19 mL) subcutaneous pen levetiracetam 250 mg tablet 500 mg PO DAILY #60 tab 03/02/19 levetiracetam 250 mg tablet 750 mg PO BEDTIME #90 tab 03/02/19 magnesium oxide 400 mg (241.3 mg 400 mg PO BID #60 tab 03/02/19 magnesium) tablet melatonin 3 mg tablet 6 mg PO BEDTIME #180 tab 03/02/19 midodrine 5 mg tablet 5 mg PO BID #30 tab 03/02/19 omega 2-zcy-czy-fish oil 1,000 mg 1 cap PO DAILY #30 cap 03/02/19 (120 mg-180 mg) capsule omeprazole 20 mg capsule,delayed 20 mg PO BID #180 cap 03/02/19 release potassium chloride 20 mEq 40 meq PO BID #180 tab 03/02/19 tablet,extended release(part/cryst) glucagon (human recombinant) 1 mg See Rx Instructions .ROUTE 03/03/19 solution for injection .COMPLEX #1 each oxycodone-acetaminophen 1 tab PO BEDTIME PRN #30 tab 03/09/19 wheat dextrin 3 gram/4 gram oral 1 packet PO DAILY #28 each 03/12/19 powder packet Allergies Allergy/AdvReac Type Severity Reaction Status Date / Time adhesive tape Allergy Unknown Verified 01/14/19 20:39 Penicillins Allergy Unknown Verified 01/14/19 20:39 silicone Allergy Unknown Verified 01/14/19 20:39 zonisamide Allergy Unknown Verified 01/14/19 20:39 escitalopram AdvReac Unknown Verified 01/14/19 20:39 lamotrigine AdvReac Unknown Verified 01/14/19 20:39 Review of Systems Constitutional Constitutional: Reports body ache(s), Denies chills, Denies fever(s), Reports headache(s), Reports lethargy and Reports weakness Eyes Eyes: Denies change in vision, Denies eye discharge, Denies irritation and Denies loss of vision ENT Ears, Nose, Mouth, and Throat: Reports headache(s), Denies mouth pain, Denies neck mass, Denies neck pain, Denies sinus pain and Reports sore throat Cardiovascular Cardiovascular: Denies chest pain, Denies rapid heart rate, Denies irregular heart rhythm, Denies lightheadedness, Denies palpitations, Denies dyspnea and Denies orthopnea Respiratory Respiratory: Denies cough, Denies dyspnea and Denies wheezing Gastrointestinal Gastrointestinal: Denies abdominal pain, Denies change in bowel habits, Denies diarrhea, Denies nausea and Denies vomiting Genitourinary Genitourinary: Denies hematuria, Denies dysuria, Denies flank pain and Denies urinary urgency Musculoskeletal Musculoskeletal: Denies back pain, Denies neck pain and Denies numbness Integumentary/Breasts Skin/Breast: Denies pruritus, Denies erythema, Denies rash and Denies wounds Neurologic Neurologic: Reports confusion, Reports headache(s), Denies loss of vision, Denies memory loss, Denies numbness and Reports weakness Psychiatric Psychiatric: Reports confusion and Denies memory loss Endocrine Endocrine: Denies palpitations Hematologic/Lymphatic Hematologic/Lymphatic: Denies easy bleeding Allergic/Immunologic Allergic/Immunologic: Denies wheezing Patient History Medical History Anxiety (Chronic) Chicken pox (Resolved ~1966) Cognitive dysfunction (Chronic) Depression (Chronic) Diabetes mellitus type 2, insulin dependent (Chronic ~2007) Fecal incontinence (Chronic) Fractures (Resolved ~2017) GERD without esophagitis (Chronic) Hearing loss (Chronic ~2016) High serum lactate (Chronic) Measles (Resolved ~1963) Oligodendroglioma (Chronic ~2011) Orthostatic hypotension (Chronic) Other and unspecified hyperlipidemia (Chronic) Ovarian cyst (Chronic ~1983) Seizure disorder (Chronic) Sepsis (Acute) Urinary incontinence (Chronic ~2015) Vision disorder (Chronic) Surgical History Anesthesia (Resolved) H/O pelvic surgery (Inactive ~2016) History of cholecystectomy (Resolved ~1987) History of hysterectomy (Resolved ~1988) Social History marital status: number of children: 3 household members: caregiver and other lives independently: Yes caregiver/support person: Yes housing: assisted living facility pets and animals: No education level: high school occupational status: disabled Previous occupational history: [employer] in [place] duncan/yazidi: None leisure activities: games (MinoMonsters) and other (Movies, TV) Smoking Status: Former smoker Tobacco: How many years used: 2 Smokeless tobacco user: other (Cigarettes) quit status: quit date established (2010) second hand exposure: No alcohol intake: never substance use type: does not use alcohol intake frequency: holidays/special occasions only Substance Use Type: does not use Exam Initial Vital Signs Initial Vital Signs: Vital Signs Temperature 97.4 F L 03/18/19 01:40 Pulse Rate 94 H 03/18/19 01:40 Respiratory Rate 18 03/18/19 01:40 Blood Pressure 134/82 03/18/19 01:40 Pulse Oximetry 95 03/18/19 01:40 Const General: cooperative and well developed Nutritional Appearance: well nourished Orientation: alert, awake, oriented x3 and not confused HENMT Head: normocephalic and atraumatic Ears: TM's normal bilaterally Face and sinus: sinuses nontender, face symmetric and no sinus tenderness Mouth: oral mucosae normal and moist mucous membranes Throat: posterior oropharynx normal Eyes General: appearance normal, both eyes and all related structures Eyelids: eyelids normal Conjunctivae: conjunctivae normal Sclera: sclerae normal Pupils: PERRL EOM: EOM intact bilaterally Neck Neck: No JVD Chest Chest: normal inspection of the chest Resp Effort & Inspection: normal respiratory effort, able to speak in complete sentences, no respiratory distress and no use of accessory muscles Auscultation: clear to auscultation bilaterally, no rales, no rhonchi and no wheezes Cardio Rate: regular rate Rhythm: regular rhythm Heart Sounds: S1 normal, S2 normal, no click, no gallops, no murmurs and no rubs Pulses: normal peripheral pulses GI Inspection: non-distended, large pannus and obesity Palpation: soft, no hepatosplenomegaly, No guarding, No pulsatile mass and No tender Auscultation: normal bowel sounds Back/Spine/Pelvis Back: No back tenderness and No CVA tenderness Sacrum: erythema (Small grade 1 decubitus ulcer) Skin General: no rashes or lesions noted (Other than noted on the back exam.) Neuro Other: Severe generalized weakness. Confusion. Disoriented to time. GCS 15. Course Course Course Narrative: The patient was found to have a urinary tract infection. She has an elevated lactic acid level. She has received IV fluid boluses. She was initially given Levaquin after blood and urine cultures. Reviewing prior cultures, and prior sensitivities, I also ordered a single dose of Rocephin. She will likely have urine culture results available before other decisions are necessary. I have discussed the case with Dr. Dias, the on-call physician. He has agreed to admission. The patient be admitted to the patient's PCM, Dr. Vaughn. A repeat lactic acid level has been ordered before the patient is transferred to the floor. Decision to Admit Date: 03/18/19 Decision to Admit time: 05:44 Orders Ordered: ED Orders 03/18/19 02:15 Influenza A and B by PCR Rapid Stat 03/18/19 02:25 Complete Blood Count AUTO DIFF Stat Comprehensive Metabolic Panel Stat Lactate (Lactic Acid) Stat Partial Thromboplastin Time Stat Prothrombin Time INR Stat Type and Screen Stat 03/18/19 03:08 XR chest 1V Stat 03/18/19 03:35 Blood Culture Stat 03/18/19 03:50 UA Complete [Urinalysis and Microscopic] Stat Urine Culture Stat Sodium Chloride (Normal Saline 0.9%) 1,000 mls @ 250 mls/hr IV CONT VERONICA Last Infusion: 03/18/19 05:04 Dose: 0 mls/hr Documented by: Admin: 03/18/19 02:30 Dose: 250 mls/hr Documented by: MMCFARL Sodium Chloride (Normal Saline 0.9%) 1,000 mls @ 1,000 mls/hr IV BOLUS PRN PRN Reason: Fluid replacement Levofloxacin (Levaquin) 500 mg in 100 mls @ 100 mls/hr IV NOW ONE Stop: 03/18/19 05:57 Last Admin: 03/18/19 05:03 Dose: 100 mls/hr Documented by: MMCFARL Sodium Chloride (Normal Saline 0.9%) 1,000 mls @ 1,000 mls/hr IV BOLUS ONE Stop: 03/18/19 05:58 Vital Signs Vital signs: Vital Signs - 8 hr 03/18/19 01:40 03/18/19 03:43 03/18/19 04:30 Temperature 97.4 F L Pulse Rate 94 H 78 78 Respiratory Rate 18 15 Blood Pressure 134/82 Blood Pressure [Left Arm] 129/73 110/49 L Pulse Oximetry 95 94 95 MDM - GI Bleed Lab Data Result diagrams: 03/18/19 02:25 03/18/19 02:25 Labs: Lab Results 03/18/19 03/18/19 03/18/19 Range/Units 02:15 02:25 02:25 WBC 8.3 (4.5-11.0) X10^3/uL RBC 3.56 L (4.0-5.2) X10^6/uL Hgb 11.9 L (12.0-16.0) g/dL Hct 35.6 L (36-46) % MCV 100.2 H (80-100) fL MCH 33.6 (26-34) PG MCHC 33.5 (30-36) % RDW 15.4 H (11.6-14.8) % Plt Count 171 (150-400) X10^3/uL Neut % (Auto) 76.4 H (50-75) % Lymph % (Auto) 14.9 L (25-40) % [facility] % (Auto) 7.8 (3-14) % Eos % (Auto) 0.2 L (2-4) % Baso % (Auto) 0.7 (0-2) % Neut # (Auto) 6300 (7727-5493) /uL Lymph # (Auto) 1200 (4294-0364) /uL [facility] # (Auto) 600 (0-900) /uL Eos # (Auto) 0 (0-450) /uL Baso # (Auto) 100 (0-100) /uL PT 10.6 (10.1-12.7) SECONDS INR 0.9 (0.9-1.3) APTT 25 L D (26.4-36.2) SECONDS Sodium (137-145) mmol/L Potassium (3.4-5.1) mmol/L Chloride (98-107) mmol/L Carbon Dioxide (22-32) mmol/L BUN (7-17) mg/dL Creatinine (0.52-1.04) mg/dL Estimated GFR (>60) mL/min BUN/Creatinine Ratio (6-22) Glucose (70-100) mg/dL Lactate (0.7-2.1) mmol/L Calcium (8.4-10.2) mg/dL Total Bilirubin (0.2-1.3) mg/dL AST (14-36) IU/L ALT (<35) IU/L Alkaline Phosphatase (38-126) U/L Total Protein (6.3-8.2) g/dL Albumin (3.5-5.0) g/dL Globulin (1.7-4.1) g/dL Albumin/Globulin Ratio (1.0-2.8) Urine Color Urine Appearance Urine pH (4.5-8.0) Ur Specific [place] (1.000-1.035) Urine Protein (Negative) Urine Glucose (UA) (Negative) g/dL Urine Ketones (NEGATIVE) Urine Occult Blood (Negative) Urine Nitrate (Negative) Urine Bilirubin (NEGATIVE) Urine Urobilinogen (0.2) E.U./dL Ur Leukocyte Esterase (NEGATIVE) Urine RBC (0-5/HPF) Urine WBC (0-5/HPF) Ur Squamous Epith Cells (0-5/HPF) Urine Bacteria (None) Ur Culture Indicated? Influenza A & B (PCR) Negative (Negative) Blood Type Antibody Screen 03/18/19 03/18/19 03/18/19 Range/Units 02:25 02:25 02:25 WBC (4.5-11.0) X10^3/uL RBC (4.0-5.2) X10^6/uL Hgb (12.0-16.0) g/dL Hct (36-46) % MCV (80-100) fL MCH (26-34) PG MCHC (30-36) % RDW (11.6-14.8) % Plt Count (150-400) X10^3/uL Neut % (Auto) (50-75) % Lymph % (Auto) (25-40) % [facility] % (Auto) (3-14) % Eos % (Auto) (2-4) % Baso % (Auto) (0-2) % Neut # (Auto) (0440-7909) /uL Lymph # (Auto) (7699-5803) /uL [facility] # (Auto) (0-900) /uL Eos # (Auto) (0-450) /uL Baso # (Auto) (0-100) /uL PT (10.1-12.7) SECONDS INR (0.9-1.3) APTT (26.4-36.2) SECONDS Sodium 138 (137-145) mmol/L Potassium 3.8 (3.4-5.1) mmol/L Chloride 101 (98-107) mmol/L Carbon Dioxide 28 (22-32) mmol/L BUN 28 H (7-17) mg/dL Creatinine 0.70 (0.52-1.04) mg/dL Estimated GFR > 60.0 (>60) mL/min BUN/Creatinine Ratio 40.0 H (6-22) Glucose 279 H D (70-100) mg/dL Lactate 3.0 H (0.7-2.1) mmol/L Calcium 8.6 (8.4-10.2) mg/dL Total Bilirubin 0.4 (0.2-1.3) mg/dL AST 121 H (14-36) IU/L ALT 145 H (<35) IU/L Alkaline Phosphatase 227 H (38-126) U/L Total Protein 5.5 L (6.3-8.2) g/dL Albumin 3.2 L (3.5-5.0) g/dL Globulin 2.3 (1.7-4.1) g/dL Albumin/Globulin Ratio 1.4 (1.0-2.8) Urine Color Urine Appearance Urine pH (4.5-8.0) Ur Specific [place] (1.000-1.035) Urine Protein (Negative) Urine Glucose (UA) (Negative) g/dL Urine Ketones (NEGATIVE) Urine Occult Blood (Negative) Urine Nitrate (Negative) Urine Bilirubin (NEGATIVE) Urine Urobilinogen (0.2) E.U./dL Ur Leukocyte Esterase (NEGATIVE) Urine RBC (0-5/HPF) Urine WBC (0-5/HPF) Ur Squamous Epith Cells (0-5/HPF) Urine Bacteria (None) Ur Culture Indicated? Influenza A & B (PCR) (Negative) Blood Type O Positive Antibody Screen Negative 03/18/19 03/18/19 Range/Units 03:50 05:08 WBC (4.5-11.0) X10^3/uL RBC (4.0-5.2) X10^6/uL Hgb (12.0-16.0) g/dL Hct (36-46) % MCV (80-100) fL MCH (26-34) PG MCHC (30-36) % RDW (11.6-14.8) % Plt Count (150-400) X10^3/uL Neut % (Auto) (50-75) % Lymph % (Auto) (25-40) % [facility] % (Auto) (3-14) % Eos % (Auto) (2-4) % Baso % (Auto) (0-2) % Neut # (Auto) (4642-9029) /uL Lymph # (Auto) (1897-2331) /uL [facility] # (Auto) (0-900) /uL Eos # (Auto) (0-450) /uL Baso # (Auto) (0-100) /uL PT (10.1-12.7) SECONDS INR (0.9-1.3) APTT (26.4-36.2) SECONDS Sodium (137-145) mmol/L Potassium (3.4-5.1) mmol/L Chloride (98-107) mmol/L Carbon Dioxide (22-32) mmol/L BUN (7-17) mg/dL Creatinine (0.52-1.04) mg/dL Estimated GFR (>60) mL/min BUN/Creatinine Ratio (6-22) Glucose (70-100) mg/dL Lactate 2.4 H (0.7-2.1) mmol/L Calcium (8.4-10.2) mg/dL Total Bilirubin (0.2-1.3) mg/dL AST (14-36) IU/L ALT (<35) IU/L Alkaline Phosphatase (38-126) U/L Total Protein (6.3-8.2) g/dL Albumin (3.5-5.0) g/dL Globulin (1.7-4.1) g/dL Albumin/Globulin Ratio (1.0-2.8) Urine Color Yellow Urine Appearance Cloudy Urine pH 6.0 (4.5-8.0) Ur Specific [place] 1.010 (1.000-1.035) Urine Protein Trace H (Negative) Urine Glucose (UA) 2+ H (Negative) g/dL Urine Ketones Negative (NEGATIVE) Urine Occult Blood 2+ H (Negative) Urine Nitrate Negative (Negative) Urine Bilirubin Negative (NEGATIVE) Urine Urobilinogen 0.2 (0.2) E.U./dL Ur Leukocyte Esterase 1+ H (NEGATIVE) Urine RBC 0-1/hpf (0-5/HPF) Urine WBC 30-100/hpf H (0-5/HPF) Ur Squamous Epith Cells 0-1 /hpf (0-5/HPF) Urine Bacteria Many (>30) H (None) Ur Culture Indicated? Specimen cultured Influenza A & B (PCR) (Negative) Blood Type Antibody Screen Point of Care Testing Glucose POC 308 Imaging Data Chest x-ray: My impression: No acute cardiopulmonary process identified. Critical Care Time Critical Care Time Critical Care Time: Yes Total Critical Care Time: 40 Attestation: Critical care included initial assessment, records review, review of lab and x-ray data, and clinical decision making. Time included discussing the lab results with the patient, and discussing admission with the accepting physician. Discharge Plan Departure Patient Disposition: Admitted As Inpatient Clinical Impression: Cognitive dysfunction, Diabetes mellitus type 2 in obese Sepsis Qualifiers: Sepsis type: sepsis due to unspecified organism Sepsis acute organ dysfunction status: without acute organ dysfunction Qualified Code(s): A41.9 - Sepsis, unspecified organism Urinary tract infection Qualifiers: Urinary tract infection type: acute cystitis Hematuria presence: without hematuria Qualified Code(s): N30.00 - Acute cystitis without hematuria Decubitus skin ulcer Qualifiers: Pressure injury location: buttock Pressure injury stage: stage 1 Laterality: unspecified laterality Qualified Code(s): L89.301 - Pressure ulcer of unspecified buttock, stage 1 Discharge Date/Time: 03/18/19 05:50 Admit Date/Time: 03/18/19 05:34 Admit Provider: Naveen Vaughn
[2019-03-18] MEDS: SODIUM CHLORIDE 0.9% 1,000 ML 250 ML IV (02:30)
[2019-03-18 02:40] LABS: Add Manual Diff / Slide Review NO; Basophils Absolute Auto 100 /uL (0-100); Basophils Percent Auto 0.7 % (0-2); Eosinophils Absolute Auto 0 /uL (0-450); Eosinophils Percent Auto 0.2 % (2-4); Hematocrit 35.6 % (36-46); Hemoglobin 11.9 g/dL (12.0-16.0); Lymphocytes Absolute Auto 1200 /uL (1100-4500); Lymphocytes Percent Auto 14.9 % (25-40); Mean Corpuscular HGB Conc 33.5 % (30-36); Mean Corpuscular Hemoglobin 33.6 PG (26-34); Mean Corpuscular Volume 100.2 fL (80-100); Monocytes Absolute Auto 600 /uL (0-900); Monocytes Percent Auto 7.8 % (3-14); Neutrophils Absolute Auto 6300 /uL (1500-7000); Neutrophils Percent Auto 76.4 % (50-75); Platelet Count 171 X10^3/uL (150-400); Red Blood Cell Count 3.56 X10^6/uL (4.0-5.2); Red Cell Distribution Width 15.4 % (11.6-14.8); White Blood Cell Count 8.3 X10^3/uL (4.5-11.0)
[2019-03-18 02:41] LABS: INR 0.9 (0.9-1.3); Prothrombin Time 10.6 SECONDS (10.1-12.7)
[2019-03-18 02:43] LABS: PTT Partial Thromboplastin Tim 25 SECONDS (26.4-36.2)
[2019-03-18 02:44] LABS: Alanine Aminotransferase 145 IU/L (<35); Albumin 3.2 g/dL (3.5-5.0); Albumin Globulin Ratio 1.4 (1.0-2.8); Alkaline Phosphatase 227 U/L (38-126); Aspartate Aminotransferase 121 IU/L (14-36); Bilirubin Total 0.4 mg/dL (0.2-1.3); Blood Urea Nitrogen 28 mg/dL (7-17); Calcium 8.6 mg/dL (8.4-10.2); Carbon Dioxide 28 mmol/L (22-32); Chloride 101 mmol/L (98-107); Estimated Glomerular Filt Rate > 60.0 mL/min (>60); Globulin 2.3 g/dL (1.7-4.1); Glucose 279 mg/dL (70-100); HEMOLYSIS < 15 (0-50); Potassium 3.8 mmol/L (3.4-5.1); Sodium 138 mmol/L (137-145); Total Protein 5.5 g/dL (6.3-8.2)
--- NOTE | 2019-03-18 02:45 | PC.NURSE ---
Medication reconciliation attempted and not obtained, pt unable to recall medications and [facility] staff report computers are down and unable to send.
[2019-03-18 02:46] LABS: Influenza A and B by PCR Rapid Negative (Negative)
--- NOTE | 2019-03-18 03:08 | DI.RAD.S_ITS ---
PROCEDURE: XR CHEST 1V INDICATIONS: dyspnea TECHNIQUE: One view of the chest was acquired. COMPARISON: [facility], CR, XR CHEST 1V, 03/07/2019, 12:41. FINDINGS: Surgical changes and devices: None. Lungs and pleura: Lungs are clear. No pleural effusions or pneumothorax. Mediastinum: Mediastinal contours appear normal. Heart is enlarged. Bones and chest wall: No suspicious bony lesions. Overlying soft tissues appear unremarkable. IMPRESSION: No acute cardiopulmonary disease process. Dictated by: Stacie King MD, PhD on 03/18/2019 at 7:59 Approved by: Stacie King MD, PhD on 03/18/2019 at 7:59
[2019-03-18 04:31] LABS: Bilirubin Urine UA NEGATIVE (NEGATIVE); Color Urine UA YELLOW; Glucose Urine UA 2+ g/dL (Negative); Ketones Urine UA NEGATIVE (NEGATIVE); Leukocyte Esterase Urine UA 1+ (NEGATIVE); Nitrite Urine UA NEGATIVE (Negative); Occult Blood Urine UA 2+ (Negative); Protein Urine UA TRACE (Negative); Urobilinogen Urine UA 0.2 E.U./dL (0.2)
[2019-03-18 04:33] LABS: Appearance Urine UA CLOUDY
[2019-03-18 04:40] LABS: Bacteria Urine Many (>30); Culture Indicated Urine Specimen Cultured; RBC Urine 0-1/HPF (0-5/HPF); Squamous Epithelial Cell Urine 0-1 /HPF (0-5/HPF); WBC Urine 30-100/HPF (0-5/HPF)
[2019-03-18 04:47] LABS: Reflexed Lactate in 2 Hours Y
[2019-03-18] MEDS: SODIUM CHLORIDE 0.9% 1,000 ML 1000 ML IV (05:00)
[2019-03-18] MEDS: levoFLOXacin 500 MG/100 ML PIGGYBACK 100 MG IV (05:03)
[2019-03-18 05:25] LABS: Lactate 2HR (Lactic Acid Rflx) 2.4 mmol/L (0.7-2.1)
--- NOTE | 2019-03-18 05:40 | PC.NURSE ---
Pt repositioned, red excoriated skin on coccyx noted, Dr. Gasca aware and report given to admission RN.
[2019-03-18] MEDS: CEFTRIAXONE 1 GM/50 ML FROZ.PIGGY IV (06:39)
--- NOTE | 2019-03-18 06:57 | CM.MNRNOTE ---
Admitted to room 225, pt. sleepy answers questions slowly & falls back to sleep. Not able to confirmed her home meds. No paper works form [facility]. Clarified fluids via ER. MD Leija RN states she needed 2 more liters of NS bolus after the bag from ER is completed. Rocephin 1 gm. is infusing @ this time. Admiited with multiple ecchymoses in her extremities, rt. shoulder, lt. chest, & stage 2 pressure ulcer, barrier cream applied & repositioned to her Rt. side. Klaus motley
--- NOTE | 2019-03-18 08:00 | P.HP_ITS ---
History of Present Illness History of Present Illness Date Patient Seen: 03/18/19 Time Patient Seen: 08:00 Chief complaint: GI Bleed Narrative: 58-year-old very unfortunate female well known to this facility for multiple admissions who presented to the [facility] Emergency Department after being sent by her facility because they ?found her brief full of blood? period after speaking with the facility staff there is no evidence of stool that was merely evidence of red blood in her brief and they transferred her to [facility] ER for evaluation In the ER there is no evidence of GI bleeding which is presumed to be the reason for transfer. She was however found to have an abnormal urine consistent with a urinary tract infection and a slightly elevated lactate level which is been seen on almost every blood draw this patient has had obtained at any point whether not she is ill. Was not Found to have an elevation of her white blood cell count, does have elevations of her LFTs consistent with prior readings, patient also with history of chronic pancreatitis but lipase was not checked this time. Patient was admitted via emergency department for presumed sepsis given her elevated lactate level despite normal or baseline numbers otherwise. Patient herself is really unable to provide any insight into were may may not be going on with her, which is her baseline. She says she felt fine the day prior to admission and when she went to bed in that evening was having no active issues. She was unaware that the facility staff were concerned about her constipation which had been faxed to me urgently day prior to admission as well. This morning she says she feels okay has no complaints whatsoever. Patient History Medical History Anxiety (Chronic) Chicken pox (Resolved ~1966) Cognitive dysfunction (Chronic) Depression (Chronic) Diabetes mellitus type 2, insulin dependent (Chronic ~2007) Fecal incontinence (Chronic) Fractures (Resolved ~2017) GERD without esophagitis (Chronic) Hearing loss (Chronic ~2016) High serum lactate (Chronic) Measles (Resolved ~1963) Oligodendroglioma (Chronic ~2011) Orthostatic hypotension (Chronic) Other and unspecified hyperlipidemia (Chronic) Ovarian cyst (Chronic ~1983) Seizure disorder (Chronic) Sepsis (Acute) Urinary incontinence (Chronic ~2015) Vision disorder (Chronic) Surgical History Anesthesia (Resolved) H/O pelvic surgery (Inactive ~2016) History of cholecystectomy (Resolved ~1987) History of hysterectomy (Resolved ~1988) Family & Social History Family History Father Cancer Diabetes mellitus Hypertension Sister Hypertension Sister Cancer Grandfather Heart disease Grandmother Heart disease Social History: household members caregiver,other Prior Living Arrangements Assisted Living lives independently Yes caregiver/support person Yes Safety & Behavioral: Feels Safe in Current Yes Environment Been Physically Hurt or No Threatened By a Person Suicidal Ideation Description None Suicide Plan Description No Plan Tobacco & Substance use: Smoking Status Former smoker alcohol intake never alcohol intake frequency holiday/special occasion Substance Use Type does not use Meds Home Medications and Allergies Home Medications Medication Instructions Recorded Confirmed Type ondansetron HCl 4 mg tablet 4 mg PO Q6H PRN #30 tab 05/29/18 03/07/19 Rx loperamide 2 mg capsule 2 mg PO Q2-4H PRN #60 cap 10/17/18 03/07/19 Rx pen needle, diabetic 30 gauge x #100 each 11/20/18 03/07/19 Rx 5/16 Robitussin Dm 5 ml PO Q4H PRN 12/09/18 03/07/19 History nystatin 1 applic TOPICAL PRN PRN 12/09/18 03/07/19 History acetaminophen 325 mg tablet 650 mg PO Q4H PRN #90 tab 12/12/18 03/07/19 Rx meclizine 25 mg tablet 25 mg PO Q6H PRN #90 tab 12/12/18 03/07/19 Rx furosemide 40 mg PO DAILY 02/02/19 03/07/19 History lancets 30 gauge #100 each 02/02/19 03/07/19 Rx aspirin 81 mg tablet,delayed 81 mg PO DAILY #30 tab 03/02/19 03/07/19 Rx release atorvastatin 10 mg tablet 10 mg PO DAILY #30 tab 03/02/19 03/07/19 Rx cholecalciferol (vitamin D3) 1,000 1,000 unit PO DAILY #90 cap 03/02/19 03/07/19 Rx unit capsule citalopram 20 mg tablet 20 mg PO DAILY #90 tab 03/02/19 03/07/19 Rx dexamethasone 2 mg tablet 2 mg PO BID #60 tab 03/02/19 03/07/19 Rx folic acid 400 mcg tablet 0.4 mg PO QPM #90 tab 03/02/19 03/07/19 Rx hydrocortisone acetate 1 % topical 1 applic TOPICAL Q8H PRN #57 gram 03/02/19 03/07/19 Rx cream ibuprofen 400 mg tablet 400 mg PO BID #60 tab 03/02/19 03/07/19 Rx insulin aspart U-100 100 unit/mL 3 unit SUBCUT TID #15 ml 03/02/19 03/07/19 Rx subcutaneous cartridge insulin glargine 100 unit/mL (3 65 unit SUBCUT DAILY #15 ml 03/02/19 03/07/19 Rx mL) subcutaneous pen insulin glargine 100 unit/mL (3 70 unit SUBCUT QPM #15 ml 03/02/19 03/07/19 Rx mL) subcutaneous pen levetiracetam 250 mg tablet 500 mg PO DAILY #60 tab 03/02/19 03/07/19 Rx levetiracetam 250 mg tablet 750 mg PO BEDTIME #90 tab 03/02/19 03/07/19 Rx magnesium oxide 400 mg (241.3 mg 400 mg PO BID #60 tab 03/02/19 03/07/19 Rx magnesium) tablet melatonin 3 mg tablet 6 mg PO BEDTIME #180 tab 03/02/19 03/07/19 Rx midodrine 5 mg tablet 5 mg PO BID #30 tab 03/02/19 03/07/19 Rx omega 0-mdy-gwy-fish oil 1,000 mg 1 cap PO DAILY #30 cap 03/02/19 03/07/19 Rx (120 mg-180 mg) capsule omeprazole 20 mg capsule,delayed 20 mg PO BID #180 cap 03/02/19 03/07/19 Rx release potassium chloride 20 mEq 40 meq PO BID #180 tab 03/02/19 03/07/19 Rx tablet,extended release(part/cryst) glucagon (human recombinant) 1 mg See Rx Instructions .ROUTE 03/03/19 03/07/19 Rx solution for injection .COMPLEX #1 each oxycodone-acetaminophen 1 tab PO BEDTIME PRN #30 tab 03/09/19 Rx wheat dextrin 3 gram/4 gram oral 1 packet PO DAILY #28 each 03/12/19 Rx powder packet Allergies Allergy/AdvReac Type Severity Reaction Status Date / Time adhesive tape Allergy Unknown Verified 01/14/19 20:39 Penicillins Allergy Unknown Verified 01/14/19 20:39 silicone Allergy Unknown Verified 01/14/19 20:39 zonisamide Allergy Unknown Verified 01/14/19 20:39 escitalopram AdvReac Unknown Verified 01/14/19 20:39 lamotrigine AdvReac Unknown Verified 01/14/19 20:39 Review of Systems Review of Systems Narrative: Patient is a unreliable historian basically has no complaints ROS Unobtainable: unobtainable due to mental condition Exam Vital Signs (past 8 hours): - 03/18/19 01:40 03/18/19 03:43 03/18/19 04:30 Temperature 97.4 F L Pulse Rate 94 H 78 78 Respiratory Rate 18 15 Blood Pressure 134/82 Blood Pressure [Left Arm] 129/73 110/49 L Pulse Oximetry 95 94 95 03/18/19 05:30 03/18/19 06:13 Temperature 97.3 F L Pulse Rate 75 82 Respiratory Rate 16 16 Blood Pressure 122/66 Blood Pressure [Left Arm] 101/57 L Pulse Oximetry 94 95 Oxygen Delivery Method Room Air Oxygen Flow Rate 0 Const General: cooperative, healthy appearing, comfortable, well developed and well groomed Nutritional Appearance: well nourished Orientation: alert, awake and oriented x3 HENMT Head: normocephalic, atraumatic, No cyanosis of lips/distal nose, No raccoon eyes and No periorbital ecchymosis Ears: hearing grossly normal bilaterally and external ears normal Nose: external nose normal and nares normal Face and sinus: normal facial exam and face symmetric Mouth: oral mucosae normal, lip normal and tongue normal Eyes Alignment and Position: alignment normal Periorbital: periorbital findings normal Eyelids: eyelids normal Conjunctivae: conjunctivae normal Sclera: sclerae normal Cornea: corneas normal Pupils: PERRL EOM: EOM intact bilaterally Neck Neck: normal visual inspection, full ROM, trachea midline and No anterior neck swelling Thyroid: not diffusely enlarged Carotids: normal carotid upstroke Lymphatic: No lymphadenopathy Chest Chest: normal inspection of the chest, No crepitus and No tenderness Breast inspection: normal inspection of the breasts Resp Effort & Inspection: normal respiratory effort, able to speak in complete sentences, no audible wheezes, no cough, no retractions and not tachypneic Auscultation: clear to auscultation bilaterally, no rales, no rhonchi, no wheezes and no rubs Percussion: percussion normal Tactile Fremitus: tactile fremitus absent Cardio Palpation: normal PMI Rate: regular rate Rhythm: regular rhythm Heart Sounds: S1 normal, S2 normal and normal, physiologic split S2 Bruits: no carotid bruits Pulses: brachial pulses present and radial pulses present GI Inspection: normal to inspection Palpation: soft and no hepatosplenomegaly Percussion: normal to percussion Auscultation: normal bowel sounds Back/Spine/Pelvis Back: No CVA tenderness Cervical Spine: normal cervical lordosis Thoracic/Lumbar Spine: thoracic and lumbar spine normal to inspection Skin General: no rashes or lesions noted, No excoriations, No induration, No jaundice, No mottling and No petechiae Lesions: no lesions (no worrisome/abl lesions) Rashes: no rashes Trauma: no lacerations or abrasions Wounds: no wounds Hair: normal Neuro General: alert, awake, oriented x3, tone normal and normal light touch, pain and propioception Cranial Nerves: CN's II-XI intact bilaterally Cognition: normal cognition Speech: speech normal Motor: muscle tone normal throughout Sensory Exam: no sensory deficits noted DTR's: Rt Biceps: 2+, Lt Biceps: 2+, Rt Brachioradialis: 2+, Lt Brachioradialis: 2+, Rt Patellar: 2+ and Lt Patellar: 2+ Extrem General: normal to inspection, no clubbing, cyanosis or edema and No calf tenderness Right upper extremity: normal to inspection Left upper extremity: normal to inspection Right lower extremity: normal to inspection Left lower extremity: normal to inspection Psych Appearance: grossly normal Mental Status: mental status grossly normal Speech and Movement: speech and movement normal and speech clear Mood: congruent mood Affect: normal affect Attitude: cooperative Thought Process: normal Thought Content: normal Judgment: judgment good Objective Labs Result Diagrams: 03/18/19 02:25 03/18/19 02:25 Labs: Laboratory Results - last 24 hr 03/18/19 03/18/19 03/18/19 02:15 02:25 02:25 WBC 8.3 RBC 3.56 L Hgb 11.9 L Hct 35.6 L MCV 100.2 H MCH 33.6 MCHC 33.5 RDW 15.4 H Plt Count 171 Neut % (Auto) 76.4 H Lymph % (Auto) 14.9 L Bartholomew % (Auto) 7.8 Eos % (Auto) 0.2 L Baso % (Auto) 0.7 Neut # (Auto) 6300 Lymph # (Auto) 1200 Bartholomew # (Auto) 600 Eos # (Auto) 0 Baso # (Auto) 100 PT 10.6 INR 0.9 APTT 25 L D Sodium Potassium Chloride Carbon Dioxide BUN Creatinine Estimated GFR BUN/Creatinine Ratio Glucose Lactate Calcium Total Bilirubin AST ALT Alkaline Phosphatase Total Protein Albumin Globulin Albumin/Globulin Ratio Urine Color Urine Appearance Urine pH Ur Specific [place] Urine Protein Urine Glucose (UA) Urine Ketones Urine Occult Blood Urine Nitrate Urine Bilirubin Urine Urobilinogen Ur Leukocyte Esterase Urine RBC Urine WBC Ur Squamous Epith Cells Urine Bacteria Ur Culture Indicated? Influenza A & B (PCR) Negative Blood Type Antibody Screen 03/18/19 03/18/19 03/18/19 02:25 02:25 02:25 WBC RBC Hgb Hct MCV MCH MCHC RDW Plt Count Neut % (Auto) Lymph % (Auto) Bartholomew % (Auto) Eos % (Auto) Baso % (Auto) Neut # (Auto) Lymph # (Auto) Bartholomew # (Auto) Eos # (Auto) Baso # (Auto) PT INR APTT Sodium 138 Potassium 3.8 Chloride 101 Carbon Dioxide 28 BUN 28 H Creatinine 0.70 Estimated GFR > 60.0 BUN/Creatinine Ratio 40.0 H Glucose 279 H D Lactate 3.0 H Calcium 8.6 Total Bilirubin 0.4 AST 121 H ALT 145 H Alkaline Phosphatase 227 H Total Protein 5.5 L Albumin 3.2 L Globulin 2.3 Albumin/Globulin Ratio 1.4 Urine Color Urine Appearance Urine pH Ur Specific [place] Urine Protein Urine Glucose (UA) Urine Ketones Urine Occult Blood Urine Nitrate Urine Bilirubin Urine Urobilinogen Ur Leukocyte Esterase Urine RBC Urine WBC Ur Squamous Epith Cells Urine Bacteria Ur Culture Indicated? Influenza A & B (PCR) Blood Type O Positive Antibody Screen Negative 03/18/19 03/18/19 03:50 05:08 WBC RBC Hgb Hct MCV MCH MCHC RDW Plt Count Neut % (Auto) Lymph % (Auto) Bartholomew % (Auto) Eos % (Auto) Baso % (Auto) Neut # (Auto) Lymph # (Auto) Bartholomew # (Auto) Eos # (Auto) Baso # (Auto) PT INR APTT Sodium Potassium Chloride Carbon Dioxide BUN Creatinine Estimated GFR BUN/Creatinine Ratio Glucose Lactate 2.4 H Calcium Total Bilirubin AST ALT Alkaline Phosphatase Total Protein Albumin Globulin Albumin/Globulin Ratio Urine Color Yellow Urine Appearance Cloudy Urine pH 6.0 Ur Specific [place] 1.010 Urine Protein Trace H Urine Glucose (UA) 2+ H Urine Ketones Negative Urine Occult Blood 2+ H Urine Nitrate Negative Urine Bilirubin Negative Urine Urobilinogen 0.2 Ur Leukocyte Esterase 1+ H Urine RBC 0-1/hpf Urine WBC 30-100/hpf H Ur Squamous Epith Cells 0-1 /hpf Urine Bacteria Many (>30) H Ur Culture Indicated? Specimen cultured Influenza A & B (PCR) Blood Type Antibody Screen Assessment & Plan Assessment & Plan narrative: 1. UTI-patient with evidence of a UTI based on urinalysis. Patient is basically completely incontinent of urine and thus I think has become colonized with bacteria. I think aggressive attempts to eradicate all bacteria in her urinary tract have merely resulted in the creation of resistant organisms. I am not convinced the patient has an active pathologic urinary tract infection at this time as she really is quite asymptomatic and there are no other objective findings beyond the abnormalities in her urine to suggest a pathologic infection. Her lactate level is frequently in fact nearly universally elevated whenever it is checked, and therefore I do not believe the lactate is a useful test in this patient, and I will not make any clinical or therapeutic decisions based on that result, I would advocate in the future that this be considered when assessing her lactate level. She has been started on broad-spectrum antibiotics tailored to previous cultures which seems appropriate for now. Will await culture results from the sample. The blood in the urine is almost certainly these blood seen in the patient's brief by staff as the facility where she stays. No evidence of GI bleeding in fact they had reported severe constipation in this patient over the last several days. In the future as far as urinary tract infections goes I would think there needs to be some objective evidence of pathologic infection before treating otherwise I would assume patient is merely colonized and would avoid further efforts to treat UTI in that setting as again we will be creating more resistant organisms than actually appropriately treating patient. 2. Seizure disorder-continue patient's usual antiepileptic medications 3. Oligodendroglioma-patient is on chronic steroid therapy to reduce inter cerebral edema. No therapeutic options available per Oncology. 4. Diabetes-continue patient's insulin at usual doses. Her insulin requirement sometimes goes down in the hospital sometimes not. She clearly has better control and she is hospitalized under diet is better controlled. Monitor numbers carefully a looking for evidence of hypoglycemia and need to reduce insu [place] but for now will order her usual doses. Coverage insulin as needed as well. 5. Code status-patient is clearly indicated wishes for no resuscitation event with sudden event so she has made a no code 6. VTE prophylaxis-will employ Lovenox Overall patient appears to be at her baseline in my opinion. We will keep her in the hospital to we have identified organism in her urine and then discharge her. This is assuming there is no clinical decline, she likely be ready for discharge in the next 24-48 hours. However I also believe that her care is more than can be managed at the [facility] [place] and would strongly recommend an alternative to placement their be sought. She has been in and out of the hospital (5 admissions over the last 8 weeks) repeatedly for relatively minor things that I think are factor more of the inability of the facility to manage her complex [place] of care rather than actual medical issues with the patient. The longest time she has been out of the hospital in the last 6 months has been when she has been in long term. Unfortunately I am not sure there are any other good options. She did certainly quite well in long term previously and I would think long term placement would be optimal for this patient given her high acuity needs for care, but of course pain med and insurance coverage will likely be the driving factor in her placement. Quality VTE Deep Vein Thrombosis/Pulmonary Embolism Present on Admission: No
[2019-03-18] MEDS: NYSTATIN POWDER 15GM 1 APPLIC TOP ×2 (09:17→20:21)
[2019-03-18] MEDS: FISH OIL 1,000 MG CAPSULE 1000 MG PO (09:18)
[2019-03-18] MEDS: MIDODRINE HCL 5 MG TABLET PO ×2 (09:18→20:22)
[2019-03-18] MEDS: levETIRAcetam 250 MG TABLET 500 MG PO (09:18)
[2019-03-18] MEDS: ATORVASTATIN 10 MG TABLET PO (09:18)
[2019-03-18] MEDS: PANTOPRAZOLE 20 MG TABLET PO ×2 (09:22→20:20)
[2019-03-18] MEDS: CHOLECALCIFEROL (VITAMIN D3) 1,000 UNIT TABLET 1000 UNIT PO (09:22)
[2019-03-18] MEDS: ASPIRIN EC 81 MG TABLET PO (09:22)
[2019-03-18] MEDS: POTASSIUM CHLORIDE 20 MEQ TAB 40 MEQ PO ×2 (09:22→20:20)
[2019-03-18] MEDS: CITALOPRAM 20 MG TABLET PO (09:22)
[2019-03-18] MEDS: FUROSEMIDE 40 MG TABLET PO (09:22)
[2019-03-18] MEDS: ENOXAPARIN 40 MG/0.4 ML SYRINGE SUBCUT ×2 (09:22→20:20)
[2019-03-18] MEDS: MAGNESIUM OXIDE 400 MG TABLET PO ×2 (09:23→20:20)
[2019-03-18] MEDS: dexAMETHasone 1 MG TABLET 2 MG PO ×2 (09:23→20:21)
[2019-03-18] MEDS: IBUPROFEN 400 MG TABLET PO ×2 (09:23→20:20)
[2019-03-18] MEDS: INSULIN GLARGINE 100 UNIT/ML 3ML PEN 65 UNIT SUBCUT (09:26)
--- NOTE | 2019-03-18 11:27 | CM.DANOTE ---
DCP: Case received, EMR reviewed and met with patient. Introduced self and role, but patient unable to understand conversation regarding discharge planning.. She did not yes, when this wrapper caser asked her if she lives at [facility]. Was able to get in touch with Alexandria at [facility] for further information. DCP assessment/template completed with information currently available. Patient is a 58 year old female who admitted early this morning to the care of the hospitalist team. PCP: Dr. Vaughn. Payer: confirmed: Medicare/Medicaid. Patient came to the hospital via ambulance secondary to rectal bleeding. Patient holds diagnosis of UTI. She resides at [facility]. Patient does have a [facility] wrapper caser named Gillian Murphy. Her direct number is: [phone]. Left her a message to call this wrapper caser back, regarding multiple admissions. Also, left a message with Ajay Lazo, through [facility] as well, to discuss care needs. Reached out to Alexandria at [facility]. She stated that patient is total care, hoier lift, does need assist with meals at times. She stated they can meet her needs there. Patient has a mother named Mackenzie Clark who resides in [place]. Alexandria had left her a message, she did not have her phone number readily available. Alexandria mentioned that Mackenzie is the main decision maker, and she has been pleased with [facility]. P: DCP will continue to follow the case closely. Will see if patient will be able to return to [facility] versus skilled, but will also need to have discussion with her wrapper caser, Gillian, or Ajay Lazo, to ensure that alternate placement could be possible if needed. Marbella Hope RN/Tow Feeder
--- NOTE | 2019-03-18 11:38 | PC.NURSE ---
AM NOTE - pt awakens easily, speech is delayed, responses are clear, 3-4+ srikanth pedal edema, scattered bruises in various stages of healing, r cheek, shoulder, srikanth ue, srikanth le, Dr. Vaughn in this am and bolus fluid finished and new order to dc ivf rec'd, hernandez w/concentrated yellow urine, ekg ordered and completed, placed on tele, scd placed.
[2019-03-18] MEDS: INSULIN ASPART 100 UNIT/ML INSULN PEN SUBCUT ×3 (12:32→20:42)
[2019-03-18] MEDS: FOLIC ACID 0.4 MG TABLET PO (17:15)
[2019-03-18] MEDS: INSULIN GLARGINE 100 UNIT/ML 3ML PEN 70 UNIT SUBCUT (17:15)
[2019-03-18] MEDS: CEFEPIME 1 GM in SODIUM CHLORIDE 0.9% 100 ML 200 ML IV (18:38)
[2019-03-18] MEDS: MELATONIN 3 MG TABLET 6 MG PO (20:20)
[2019-03-18] MEDS: levETIRAcetam 250 MG TABLET 750 MG PO (20:20)
[2019-03-19] MEDS: CEFEPIME 1 GM in SODIUM CHLORIDE 0.9% 100 ML 200 ML IV ×2 (05:39→18:15)
[2019-03-19 06:02] VITALS: BP 138/72; PULSE 71; RESP 18; TEMP 36.2; O2SAT 98
[2019-03-19] MEDS: levoFLOXacin 500 MG/100 ML PIGGYBACK 100 MG IV (06:19)
--- NOTE | 2019-03-19 07:54 | PM.PN.1 ---
Subjective Subjective Date Patient Seen: 03/19/19 Time Patient Seen: 07:54 Interval history: Uneventful day yesterday. Patient without any specific complaints. No evidence of recurrent gross hematuria or potentially GI source of bleeding. (Although, as noted in my H&P, I suspect hematuria as a source of blood found by staff at her facility) Exam Vital Signs (past 8 hours): - 03/19/19 06:02 Temperature 97.1 F L Pulse Rate 71 Respiratory Rate 18 Blood Pressure 138/72 Pulse Oximetry 98 Oxygen Delivery Method Room Air Oxygen Flow Rate 0 Objective Labs Result Diagrams: 03/18/19 02:25 03/18/19 02:25 Assessment & Plan Assessment & Plan narrative: 1. UTI-growing 2 different gram-negative bacilli. Awaiting culture results. On current antibiotic therapy that should cover most what's been grown recently including resistance patterns. 2. Diabetes-no evidence of hypoglycemia continue current insulin doses. If anything patient is a bit hyperglycemic 3. Seizure disorder-continue usual meds 4. Edema-patient lower extremity edema is significantly increased. Likely due to the volume resuscitation she received when she was thought to be septic in the ED. I am going to leave her Edwards catheter in place administer some IV Lasix to try and mobilize some of that fluid. She will continue on her usual dose oral Lasix as well. 5. Depression-patient on citalopram which does interact with Levaquin potentially causing prolonged QT. This is why patient is on telemetry while she is here. However given the resistance patterns of the organisms that were previously identified empiric treatment at this time until we have culture results I think necessitates use of Levaquin that I would be reticent to discontinue her SSRI even in the short term. This is relatively low risk and unusual although certainly at potential interaction and we will monitor her while she is here. If she shows no evidence of significant QT segment prolongation then I think she can be safely discharged on the Levaquin plus the citalopram together. Currently her QT has lengthened slightly from under 400 chente seconds to just over 400 milliseconds but well below any threshold for concern. 6. Disposition-again it is my belief that this patient requires more care than can be administered at the [facility] however we have no other options for discharge, the facility itself is adamant that they are able to manage her care and family's apparently been pleased with the care there at least prior to her mother and father moving to [place]. Therefore lacking any specific and objective evidence of poor care and/or mistreatment she will likely be discharged back to [facility] Note: Greater than 30 minutes was spent evaluating the patient on the floor, including examining the patient, discussing clinical course with clinical and nursing staff, reviewing clinical course in the computer, preparing documentation and writing orders for continued management of care, discussing status with family as appropriate, reviewing plans for the next 24 hours with both patient/family and nursing staff as appropriate. Quality VTE Deep Vein Thrombosis/Pulmonary Embolism Present on Admission: No
[2019-03-19 08:10] VITALS: BP 126/75; PULSE 71; RESP 18; TEMP 36.1; O2SAT 97
[2019-03-19] MEDS: INSULIN ASPART 100 UNIT/ML INSULN PEN SUBCUT ×4 (08:44→20:49)
[2019-03-19] MEDS: INSULIN GLARGINE 100 UNIT/ML 3ML PEN 65 UNIT SUBCUT (08:46)
[2019-03-19] MEDS: MIDODRINE HCL 5 MG TABLET PO ×2 (08:52→20:47)
[2019-03-19] MEDS: ATORVASTATIN 10 MG TABLET PO (08:52)
[2019-03-19] MEDS: FUROSEMIDE 40 MG/4 ML VIAL IV (08:52)
[2019-03-19] MEDS: dexAMETHasone 1 MG TABLET 2 MG PO ×2 (08:52→20:48)
[2019-03-19] MEDS: FISH OIL 1,000 MG CAPSULE 1000 MG PO (08:52)
[2019-03-19] MEDS: ENOXAPARIN 40 MG/0.4 ML SYRINGE SUBCUT ×2 (08:52→20:46)
[2019-03-19] MEDS: levETIRAcetam 250 MG TABLET 500 MG PO (08:53)
[2019-03-19] MEDS: POLYETHYLENE GLYCOL 3350 17 GM POWD.PACK PO (08:53)
[2019-03-19] MEDS: MAGNESIUM OXIDE 400 MG TABLET PO ×2 (08:53→20:47)
[2019-03-19] MEDS: PANTOPRAZOLE 20 MG TABLET PO ×2 (08:53→20:46)
[2019-03-19] MEDS: CITALOPRAM 20 MG TABLET PO (08:53)
[2019-03-19] MEDS: ASPIRIN EC 81 MG TABLET PO (08:53)
[2019-03-19] MEDS: POTASSIUM CHLORIDE 20 MEQ TAB 40 MEQ PO ×2 (08:54→20:47)
[2019-03-19] MEDS: IBUPROFEN 400 MG TABLET PO ×2 (08:54→20:46)
[2019-03-19] MEDS: CHOLECALCIFEROL (VITAMIN D3) 1,000 UNIT TABLET 1000 UNIT PO (08:54)
--- NOTE | 2019-03-19 09:29 | CM.DPC ---
DCP Cont: Discussed discharge with Dr. Vaughn, let him know that this case hardener attempted to reach our to her MATTHEW case hardener, Gillian Murphy, as well as Ajay Lazo, have not heard back. Dr. Vaughn anticipates that patient will be here for another day to see what bacteria grows in her urine. P: DCP to follow closely. She should be able to discharge back to [place], could be by tomorrow. Will need to contact Alexandria at [facility] for assessment. Marbella Hope RN/Transit Operator
[2019-03-19 11:26] LABS: Acinetobacter baumannii Not Detected (Not Detect); Candida albicans Not Detected (Not Detect); Candida glabrata Not Detected (Not Detect); Candida krusei Not Detected (Not Detect); Candida parapsilosis Not Detected (Not Detect); Candida tropicalis Not Detected (Not Detect); E. coli Not Detected (Not Detect); Enterobacter cloacae complex Not Detected (Not Detect); Enterobacteriaceae species Not Detected (Not Detect); Enterococcus species Not Detected (Not Detect); Haemophilus influenzae Not Detected (Not Detect); Listeria monocytogenes Not Detected (Not Detect); Neisseria meningitidis Not Detected (Not Detect); Proteus species Not Detected (Not Detect); Pseudomonas aeruginosa Not Detected (Not Detect); Serratia marcescens Not Detected (Not Detect); Staphylococcus species Not Detected (Not Detect); Streptococcus agalactiae (Gr B Not Detected (Not Detect); Streptococcus pneumonia Not Detected (Not Detect); Streptococcus pyogenes (Gr A) Not Detected (Not Detect); Streptococcus species Not Detected (Not Detect)
[2019-03-19 11:40] VITALS: BP 127/77; PULSE 81; RESP 16; TEMP 36.3; O2SAT 93
--- NOTE | 2019-03-19 12:06 | PC.NURSE ---
Addendum entered by Radha Hernandez R.N. 03/19/19 14:28: ADDENUM - verified with Dr. Vaughn pt to receive both po 40 lasix and the 40mg iv, reported the gram + cocci michel harris MD to review. Addendum entered by Radha Hernandez R.N. 03/19/19 13:44: GI - pt has some incont stool, noted to have some addl hard, round stool at anus and some davie blood, disempacted the small walnut sized stool and admin a dulcolax suppos, hermelindo care performed, noted to have a small slit opening at top buttock crease, some surrounding redness, no other breakdown buttock, barrier cream and repositioned. Original Note: AM NOTE - pt awakened for breakfast, states some le discomfort, repositioned upright for meal and set up provided, pt responses are delayed, oriented self, could not name hospital, hernandez w/clear, yellow urine, discussed 4+ pedal edema with this am and iv 40mg lasix admin.
[2019-03-19] MEDS: FUROSEMIDE 40 MG TABLET PO (12:28)
[2019-03-19] MEDS: BISACODYL 10 MG SUPP PR (13:41)
[2019-03-19 15:57] VITALS: BP 133/83; PULSE 94; RESP 18; TEMP 36.4; O2SAT 96
[2019-03-19] MEDS: FOLIC ACID 0.4 MG TABLET PO (18:10)
[2019-03-19] MEDS: INSULIN GLARGINE 100 UNIT/ML 3ML PEN 70 UNIT SUBCUT (18:11)
[2019-03-19 20:36] VITALS: BP 129/73; PULSE 82; RESP 20; TEMP 36.4; O2SAT 96
[2019-03-19] MEDS: levETIRAcetam 250 MG TABLET 750 MG PO (20:47)
[2019-03-19] MEDS: MELATONIN 3 MG TABLET 6 MG PO (20:47)
[2019-03-19 23:48] VITALS: BP 122/76; PULSE 88; RESP 16; TEMP 36.2
[2019-03-20] MEDS: OXYCODONE/ACETAMINOPHEN 5/325 TABLET 1 TAB PO (00:53)
--- NOTE | 2019-03-20 01:11 | PC.NURSE ---
Pt restless, pulling at and removing tele leads, reports generalized discomfort and burning at areas of tele lead placement resulting in shearing of skin. Discussed with pt importance of tele monitoring, leads help RN to assess pt cardiac rhythm and for safely please leave leads intact. In addition removing leads is resulting in impaired skin integrity. Topical cream applied around tele skin tear areas, but not to open skin. Pt awake, alert and oriented. Offered/administered 1 tab percocet that is ordered PRN at HS. Edwards patent, draining clear yellow urine, denies discomfort at bladder or hermelindo area.
[2019-03-20] MEDS: levoFLOXacin 500 MG/100 ML PIGGYBACK 100 MG IV (05:30)
[2019-03-20 05:54] VITALS: BP 112/71; PULSE 72; RESP 16; TEMP 36.3; O2SAT 94
[2019-03-20] MEDS: CEFEPIME 1 GM in SODIUM CHLORIDE 0.9% 100 ML 200 ML IV (06:51)
[2019-03-20 07:23] VITALS: BP 116/63; PULSE 64; RESP 16; TEMP 36.3; O2SAT 94
--- NOTE | 2019-03-20 08:07 | P.DS_ITS ---
History of Present Illness History of Present Illness Chief complaint: GI Bleed Narrative: 58-year-old very unfortunate female well known to this facility for multiple admissions who presented to the [facility] Emergency Department after being sent by her facility because they ?found her brief full of blood? period after speaking with the facility staff there is no evidence of stool that was merely evidence of red blood in her brief and they transferred her to [facility] ER for evaluation In the ER there is no evidence of GI bleeding which is presumed to be the reason for transfer. She was however found to have an abnormal urine consistent with a urinary tract infection and a slightly elevated lactate level which is been seen on almost every blood draw this patient has had obtained at any point whether not she is ill. Was not Found to have an elevation of her white blood cell count, does have elevations of her LFTs consistent with prior readings, patient also with history of chronic pancreatitis but lipase was not checked this time. Patient was admitted via emergency department for presumed sepsis given her elevated lactate level despite normal or baseline numbers otherwise. Patient herself is really unable to provide any insight into were may may not be going on with her, which is her baseline. She says she felt fine the day prior to admission and when she went to bed in that evening was having no active issues. She was unaware that the facility staff were concerned about her constipation which had been faxed to me urgently day prior to admission as well. This morning she says she feels okay has no complaints whatsoever. Discharge Providers Provider Date of admission: 03/18/19 05:34 Discharge Date: 03/20/19 Primary care physician: Naveen Vaughn MD Consults: 03/18/19 07:55 Consult to Discharge Planning Routine Comment: alternative to [place] Discharge provider: Naveen Vaughn MD Summary Hospital Course Discharge Diagnosis: 1. UTI with E coli and Enterobacter 2. Hematuria due to problem 1. Above 3. Cognitive dysfunction 4. Type 2 diabetes on insulin with poor control 5. Oligodendroglioma 6. Decubitus skin ulcer 7. Chronic urinary incontinence despite stimulator placement Hospital Course: Patient was sent from her assisted living facility because of evidence of blood in her adult diaper. There is no stool and in the end this was felt to be due to hematuria from her obvious UTI. Patient is chronically completely incontinent of urine and has at least been chronically colonized with some evidence at times of actual pathologic cystitis/UTI. On this occasion she was felt as though her hematuria was due to an active infection in her bladder. Urine was cultured and she was started on empiric antibiotics based on previous culture results. Eventually she did grow Enterobacter and E coli similar to what been grown previously from her urine. Patient was quite asymptomatic through all of this including on the night/morning of transfer from her facility. Given the identification of the organisms an appropriate oral antibiotic therapy that could be tailored she was felt to be safe for discharge back to her care facility on the morning of March 20, 2019 Patient also has ongoing issues with constipation. The day of admission patient's medical regimen had been switched from a methylcellulose bulking agent (Bene fiber) to MiraLax. This was continued in the hospital and will be continued upon discharge as well. Patient's diabetes was treated with her usual dose insulin as well as coverage insulin. Patient's blood sugar numbers were certainly not excellent but actually somewhat improved over her typical numbers at her care facility. She is both on steroids orally as well as some significant dietary indiscretions which have led to persistent hyperglycemia. In the setting of her other comorbidities is not been felt to be important to tightly control her diabetes Overall patient continues to decline significantly likely secondary to her underlying diagnosis of an oligodendroglioma which is not felt to be appropriate for any further therapies are interventions per Oncology evaluations. She is unable to participate in any transfers or even moving about the bed. She requires a great deal of care which I am sure complicates issues such as her personal hygiene above etc Overall patient appears to be at baseline and seems stable for discharge back to her assisted living facility. Patient would likely benefit from a higher level of care but there appears to be no insurance coverage and/or indication for chronic jail placement but work to see if we can identify some weight to make that happen will continue, but at this point patient does not have any needs that require ongoing care in a hospital setting. Status at Discharge Cognitive/behavioral status at discharge: at baseline, confused Functional status at discharge: bed bound Overall status at discharge: patient is back to baseline Time Spent with Patient Time spent: Greater than 30 minutes Exam Vital Signs (past 8 hours): - 03/20/19 05:54 Temperature 97.4 F L Pulse Rate 72 Respiratory Rate 16 Blood Pressure 112/71 Pulse Oximetry 94 Oxygen Delivery Method Room Air Oxygen Flow Rate 0 Narrative Exam Narrative: Middle-aged female who looks much older than her stated age HEENT-unremarkable, normocephalic resolving bruising about the right face Neck-no lymphadenopathy no bruits Lungs-clear anteriorly and posteriorly no wheezes no crackles good breath sounds Heart-regular rate and rhythm, no murmur, rub, or gallop. normal S1-S2 Abdomen-positive bowel tones, soft, nontender, nondistended, no hepatosplenomegaly, no masses palpable, although obesity limits exam Neuro-no focal deficits, gait not tested, oriented to self but not to time or place Extremities-no cyanosis clubbing 4+ edema at the feet bilaterally, similar to previous Objective Labs Result Diagrams: 03/18/19 02:25 03/18/19 02:25 Labs: Laboratory Results - last 24 hr 03/18/19 03:30 A. baumannii (PCR) Not detected Elizabeth albicans (PCR) Not detected C. glabrata (PCR) Not detected C. krusei (PCR) Not detected C. parapsilosis (PCR) Not detected C. tropicalis (PCR) Not detected Enterobacteriac sp PCR Not detected E. cloacae complex PCR Not detected Enterococcus sp PCR Not detected E. coli (PCR) Not detected H. influenzae (PCR) Not detected Klebsiella oxytoca PCR Not detected Klebsiella pneumoniae Not detected List. monocytogenes PCR Not detected N. meningitidis (PCR) Not detected Proteus species (PCR) Not detected Serratia marcescens PCR Not detected Staphylococcus sp PCR Not detected Staph aureus (PCR) Not detected mecA-Methicil Res Gene Not Reportable Streptococcus sp PCR Not detected Group A Strep (PCR) Not detected Strep agalactiae (PCR) Not detected Strep pneumoniae (PCR) Not detected P. aeruginosa (PCR) Not detected Laura/B-Vanco Res Genes Not Reportable KPC-Carbap Res Gene PCR Not Reportable Discharge Plan Discharge Plan Patient Disposition: Assisted Living Transfer to: [facility] Under care of provider: Tito Discharge orders & Medications Discharge Orders: Discharge (Order); Ordered 03/20/19 Ordered By: Naveen Vaughn Prescriptions: New sulfamethoxazole-trimethoprim 800-160 mg Tablet 1 tab PO BID 30 Days Qty: 60 RF: 0 Continued ondansetron HCl 4 mg tablet 4 mg PO Q6H PRN (Reason: Nausea And Vomiting) Qty: 30 RF: 0 loperamide [Imodium A-D] 2 mg capsule 2 mg PO Q2-4H PRN (Reason: loose stool) Qty: 60 RF: 0 (DME) Easy Touch Pen Needle 30 gauge x 5/16 needle See Dose Instructions .ROUTE .MEDSUPPLY Qty: 100 RF: 1 meclizine 25 mg tablet 25 mg PO Q6H PRN (Reason: dizziness or vertigo) Qty: 90 RF: 3 acetaminophen 325 mg tablet 650 mg PO Q4H PRN (Reason: Fever Or Pain) Qty: 90 RF: 0 (DME) lancets [TRUEplus Lancets] 30 gauge misc See Rx Instructions .ROUTE .MEDSUPPLY Qty: 100 RF: 3 hydrocortisone acetate 1 % cream 1 applic TOPICAL Q8H PRN (Reason: Rash) Qty: 57 RF: 0 midodrine 5 mg tablet 5 mg PO BID Qty: 30 RF: 8 dexamethasone 2 mg tablet 2 mg PO BID Qty: 60 RF: 11 citalopram 20 mg tablet 20 mg PO DAILY Qty: 90 RF: 1 omega 7-dxh-vmc-fish oil [Fish Oil] 1,000 mg (120 mg-180 mg) capsule 1 cap PO DAILY Qty: 30 RF: 8 cholecalciferol (vitamin D3) 1,000 unit capsule 1,000 unit PO DAILY Qty: 90 RF: 3 Basaglar KwikPen U-100 Insulin 100 unit/mL (3 mL) insulin pen 70 unit subcut QPM Qty: 15 RF: 11 aspirin 81 mg tablet,delayed release (DR/EC) 81 mg PO DAILY Qty: 30 RF: 11 folic acid 400 mcg tablet 0.4 mg PO QPM Qty: 90 RF: 1 levetiracetam 250 mg tablet 500 mg PO DAILY Qty: 60 RF: 8 levetiracetam 250 mg tablet 750 mg PO BEDTIME Qty: 90 RF: 8 atorvastatin 10 mg tablet 10 mg PO DAILY Qty: 30 RF: 12 Basaglar KwikPen U-100 Insulin 100 unit/mL (3 mL) insulin pen 65 unit subcut DAILY Qty: 15 RF: 12 potassium chloride 20 mEq tablet,ER particles/crystals 40 meq PO BID Qty: 180 RF: 3 omeprazole 20 mg capsule,delayed release(DR/EC) 20 mg PO BID Qty: 180 RF: 1 ibuprofen 400 mg tablet 400 mg PO BID Qty: 60 RF: 3 magnesium oxide 400 mg (241.3 mg magnesium) tablet 400 mg PO BID Qty: 60 RF: 5 melatonin 3 mg tablet 6 mg PO BEDTIME Qty: 180 RF: 0 Novolog PenFill U-100 Insulin 100 unit/mL cartridge 3 unit SUBCUT TID Qty: 15 RF: 12 polyethylene glycol 3350 17 gram/dose powder 17 gram PO DAILY Qty: 510 RF: 3 Glucagon Emergency Kit (human) 1 mg recon soln See Rx Instructions .ROUTE .COMPLEX RF: 0 nystatin 100,000 unit/gram powder 1 applic topical PRN PRN (Reason: Rash) RF: 0 Robitussin Dm 5 ml PO Q4H PRN (Reason: Cough) RF: 0 furosemide 40 mg tablet 40 mg PO DAILY RF: 0 oxycodone-acetaminophen 5-325 mg tablet 1 tab PO BEDTIME PRN (Reason: moderate pain/discomfort) Qty: 30 RF: 0 Discontinued Benefiber Sugar Free (dextrin) 3 gram/4 gram powder in packet 1 packet PO DAILY Qty: 28 RF: 3 Follow up/Referrals: Naveen Vaughn MD [Primary Care Provider] - Discharge Health Status Multidrug resistant organism: No MDRO Precautions: [place] Diet/Activity/Treatments Diet: Carb-consistent/Diabetic Food texture: Regular Skin/Wound/Dressing Care Skin care: Patient needs careful attention to perineal care and personal hygiene Visit Report/Discharge Packet Visit Report Forms: Patient Portal/API, Stroke Signs & Symptoms Discharge Data Primary Care Provider: Naveen Vaughn Quality VTE Deep Vein Thrombosis/Pulmonary Embolism Present on Admission: No
[2019-03-20] MEDS: CITALOPRAM 20 MG TABLET PO (08:57)
[2019-03-20] MEDS: ENOXAPARIN 40 MG/0.4 ML SYRINGE SUBCUT (08:57)
[2019-03-20] MEDS: ATORVASTATIN 10 MG TABLET PO (08:57)
[2019-03-20] MEDS: CHOLECALCIFEROL (VITAMIN D3) 1,000 UNIT TABLET 1000 UNIT PO (08:57)
[2019-03-20] MEDS: ASPIRIN EC 81 MG TABLET PO (08:57)
[2019-03-20] MEDS: MIDODRINE HCL 5 MG TABLET PO (08:58)
[2019-03-20] MEDS: IBUPROFEN 400 MG TABLET PO (08:58)
[2019-03-20] MEDS: PANTOPRAZOLE 20 MG TABLET PO (08:58)
[2019-03-20] MEDS: MAGNESIUM OXIDE 400 MG TABLET PO (08:58)
[2019-03-20] MEDS: levETIRAcetam 250 MG TABLET 500 MG PO (08:58)
[2019-03-20] MEDS: FUROSEMIDE 40 MG TABLET PO (08:58)
[2019-03-20] MEDS: dexAMETHasone 1 MG TABLET 2 MG PO (08:58)
[2019-03-20] MEDS: TRIMETH/SULFA 160/800 (DS) TABLET 1 TAB PO (08:58)
[2019-03-20] MEDS: POTASSIUM CHLORIDE 20 MEQ TAB 40 MEQ PO (08:59)
[2019-03-20] MEDS: SODIUM CHLORIDE 0.9% FLUSH 10 ML IV (08:59)
[2019-03-20] MEDS: POLYETHYLENE GLYCOL 3350 17 GM POWD.PACK PO (08:59)
[2019-03-20] MEDS: FISH OIL 1,000 MG CAPSULE 1000 MG PO (08:59)
[2019-03-20] MEDS: INSULIN ASPART 100 UNIT/ML INSULN PEN SUBCUT ×2 (09:00→11:46)
[2019-03-20] MEDS: INSULIN GLARGINE 100 UNIT/ML 3ML PEN 65 UNIT SUBCUT (09:01)
[2019-03-20 10:35] VITALS: BP 122/72; PULSE 65; RESP 18; TEMP 36.7; O2SAT 99
--- NOTE | 2019-03-20 11:56 | CM.DPC ---
Faxed signed med list and discharge summary to [facility] at fax # [phone]. Fax confirmation scanned in. Ines Mcneil, [facility] Emergency Department Balance Engineer
--- NOTE | 2019-03-20 12:15 | CM.DPNOTE ---
DCP continued: EMR reviewed: CM/RN talked with Moose at [facility] who came to [facility] to asses the patient and determined they will accept the patient back today at D/C. CM/ RN talked with patient and explained patient will be D/C back to [facility] today. Patient stated understanding and CM/RN contacted the patients mother Mackenzie at [phone] and informed her about the patients D/C back to [facility]. Cm/RN signed IMM and noted that D/C was discussed with both patient and patients mother and given to Ines to scan. ' [facility] will be coming by to pick patient up at D/C at 2pm. Patients nurse notified, LARD REFINER notified and Ines will send D/C summary, orders to [facility] for their review. Mary Molina RN
--- NOTE | 2019-03-20 14:30 | PC.NURSE ---
Pt out via personal w/c by [facility] personnel with all belongings to return to [facility].
== END 2019-03-20 14:31 | DRG 690 ==
LOC: ED 05:34 → AC 07:23
PROVIDERS: Admitting Provider Internal Medicine; Emergency Provider Emergency Medicine; PCP Internal Medicine; Visit Provider Internal Medicine
DX: N39.0 Urinary tract infection, site not specified (principal); Z16.24 Resistance to multiple antibiotics; Z68.42 Body mass index [BMI] 45.0-49.9, adult; C71.9 Malignant neoplasm of brain, unspecified; B95.2 Enterococcus as the cause of diseases classified elsewhere; R31.0 Gross hematuria; E66.9 Obesity, unspecified; G31.84 Mild cognitive impairment of uncertain or unknown etiology; R40.2362 Coma scale, best motor response, obeys commands, at arrival to emergency department; R40.2142 Coma scale, eyes open, spontaneous, at arrival to emergency department; R40.2242 Coma scale, best verbal response, confused conversation, at arrival to emergency department; R60.9 Edema, unspecified; F32.9 Major depressive disorder, single episode, unspecified; L89.90 Pressure ulcer of unspecified site, unspecified stage; G40.909 Epilepsy, unspecified, not intractable, without status epilepticus; E11.9 Type 2 diabetes mellitus without complications; Z79.4 Long term (current) use of insulin; B96.20 Unspecified Escherichia coli [E. coli] as the cause of diseases classified elsewhere; B96.89 Other specified bacterial agents as the cause of diseases classified elsewhere; K59.00 Constipation, unspecified
CPT/HCPCS: 36415; 71045; 80053; 81001; 82962; 83605; 85025; 85610; 85730; 86850; 86900; 86901; 87040; 87077; 87086; 87147; 87150; 87186; 87205; 87502; 93005; 93010; 96360; 99223; 99233; 99238; 99283; 99285; A9270; J0692; J1650; J1940; J1956

== ENCOUNTER 2019-03-24 22:39 | Observation (INO) | payer MEDICARE, MEDICAID, SELFPAY ==
[2019-03-18 06:09] VITALS: BMI 49.1
[2019-03-24 22:44] VITALS: BP 144/88; PULSE 86; RESP 16; O2SAT 97
[2019-03-24 23:05] LABS: INR 0.9 (0.9-1.3); Prothrombin Time 10.6 SECONDS (10.1-12.7)
[2019-03-24 23:06] LABS: Add Manual Diff / Slide Review NO; Basophils Absolute Auto 100 /uL (0-100); Basophils Percent Auto 0.9 % (0-2); Eosinophils Absolute Auto 0 /uL (0-450); Eosinophils Percent Auto 0.1 % (2-4); Hemoglobin 12.1 g/dL (12.0-16.0); Lymphocytes Absolute Auto 1500 /uL (1100-4500); Lymphocytes Percent Auto 13.3 % (25-40); Mean Corpuscular HGB Conc 32.7 % (30-36); Mean Corpuscular Hemoglobin 33.2 PG (26-34); Mean Corpuscular Volume 101.5 fL (80-100); Monocytes Absolute Auto 800 /uL (0-900); Monocytes Percent Auto 7.1 % (3-14); Neutrophils Absolute Auto 8900 /uL (1500-7000); Neutrophils Percent Auto 78.6 % (50-75); Platelet Count 193 X10^3/uL (150-400); Red Blood Cell Count 3.65 X10^6/uL (4.0-5.2); Red Cell Distribution Width 16.1 % (11.6-14.8); White Blood Cell Count 11.4 X10^3/uL (4.5-11.0)
[2019-03-24 23:08] LABS: PTT Partial Thromboplastin Tim 25 SECONDS (26.4-36.2)
[2019-03-24 23:10] LABS: Alanine Aminotransferase 181 IU/L (<35); Albumin 3.6 g/dL (3.5-5.0); Albumin Globulin Ratio 1.4 (1.0-2.8); Alkaline Phosphatase 287 U/L (38-126); Aspartate Aminotransferase 171 IU/L (14-36); Bilirubin Total 0.6 mg/dL (0.2-1.3); Blood Urea Nitrogen 29 mg/dL (7-17); Calcium 9.7 mg/dL (8.4-10.2); Carbon Dioxide 26 mmol/L (22-32); Chloride 102 mmol/L (98-107); Estimated Glomerular Filt Rate 56.9 mL/min (>60); Globulin 2.6 g/dL (1.7-4.1); Glucose 335 mg/dL (70-100); HEMOLYSIS < 15 (0-50); Potassium 4.8 mmol/L (3.4-5.1); Sodium 136 mmol/L (137-145); Total Protein 6.2 g/dL (6.3-8.2)
--- NOTE | 2019-03-24 23:15 | ED_ITS ---
HPI - GI Bleed General Chief complaint: GI Bleed Stated complaint: Possible GI bleed Time Seen by Provider: 03/24/19 22:40 Source: EMS Mode of arrival: EMS Limitations: no limitations History of Present Illness HPI Narrative: 59-year-old female former smoker with extensive medical history including type 2 diabetes, atorvastatin and seizure disorder presents again for evaluation of bright red bleeding per rectum. She passed a large amount of bright red blood in a brief just prior to arrival with some vague abdominal cramping. She is dizzy, weak and lightheaded. She has had stable vital signs. She is not anticoagulated and per PCP has never had a colonoscopy. Onset (ago): hour(s) Severity: moderate Relieving factors: none Exacerbating factors: none Context: history of GI bleed Treatments Prior to Arrival: none Related Data Home Medications Medication Instructions Recorded Confirmed Robitussin Dm 5 ml PO Q4H PRN 12/09/18 03/20/19 furosemide 40 mg PO DAILY 02/02/19 03/20/19 Glucagon Emergency Kit (human) See Rx Instructions .ROUTE .COMPLEX 03/20/19 03/20/19 Previous Rx's Medication Instructions Recorded ondansetron HCl 4 mg tablet 4 mg PO Q6H PRN #30 tab 05/29/18 loperamide 2 mg capsule 2 mg PO Q2-4H PRN #60 cap 10/17/18 pen needle, diabetic 30 gauge x #100 each 11/20/1809/18 acetaminophen 325 mg tablet 650 mg PO Q4H PRN #90 tab 12/12/18 meclizine 25 mg tablet 25 mg PO Q6H PRN #90 tab 12/12/18 lancets 30 gauge #100 each 02/02/19 aspirin 81 mg tablet,delayed 81 mg PO DAILY #30 tab 03/02/19 release atorvastatin 10 mg tablet 10 mg PO DAILY #30 tab 03/02/19 cholecalciferol (vitamin D3) 1,000 1,000 unit PO DAILY #90 cap 03/02/19 unit capsule citalopram 20 mg tablet 20 mg PO DAILY #90 tab 03/02/19 dexamethasone 2 mg tablet 2 mg PO BID #60 tab 03/02/19 folic acid 400 mcg tablet 0.4 mg PO QPM #90 tab 03/02/19 hydrocortisone acetate 1 % topical 1 applic TOPICAL Q8H PRN #57 gram 03/02/19 cream ibuprofen 400 mg tablet 400 mg PO BID #60 tab 03/02/19 insulin aspart U-100 100 unit/mL 3 unit SUBCUT TID #15 ml 03/02/19 subcutaneous cartridge insulin glargine 100 unit/mL (3 65 unit SUBCUT DAILY #15 ml 03/02/19 mL) subcutaneous pen insulin glargine 100 unit/mL (3 70 unit SUBCUT QPM #15 ml 03/02/19 mL) subcutaneous pen levetiracetam 250 mg tablet 500 mg PO DAILY #60 tab 03/02/19 levetiracetam 250 mg tablet 750 mg PO BEDTIME #90 tab 03/02/19 magnesium oxide 400 mg (241.3 mg 400 mg PO BID #60 tab 03/02/19 magnesium) tablet melatonin 3 mg tablet 6 mg PO BEDTIME #180 tab 03/02/19 midodrine 5 mg tablet 5 mg PO BID #30 tab 03/02/19 omega 9-dbf-btn-fish oil 1,000 mg 1 cap PO DAILY #30 cap 03/02/19 (120 mg-180 mg) capsule omeprazole 20 mg capsule,delayed 20 mg PO BID #180 cap 03/02/19 release potassium chloride 20 mEq 40 meq PO BID #180 tab 03/02/19 tablet,extended release(part/cryst) oxycodone-acetaminophen 1 tab PO BEDTIME PRN #30 tab 03/09/19 polyethylene glycol 3350 17 17 gram PO DAILY #510 gram 03/19/19 gram/dose oral powder sulfamethoxazole-trimethoprim 1 tab PO BID 30 Days #60 tab 03/20/19 nystatin 100,000 unit/gram topical 1 applic TOPICAL PRN PRN #30 gram 03/23/19 powder Allergies Allergy/AdvReac Type Severity Reaction Status Date / Time adhesive tape Allergy Unknown Verified 01/14/19 20:39 Penicillins Allergy Unknown Verified 01/14/19 20:39 silicone Allergy Unknown Verified 01/14/19 20:39 zonisamide Allergy Unknown Verified 01/14/19 20:39 escitalopram AdvReac Unknown Verified 01/14/19 20:39 lamotrigine AdvReac Unknown Verified 01/14/19 20:39 Review of Systems Constitutional Constitutional: Denies chills, Denies fatigue, Denies fever(s), Denies frequent falls, Denies lethargy and Denies weakness Eyes Eyes: Denies change in vision, Denies eye discharge, Denies irritation and Denies loss of vision ENT Ears, Nose, Mouth, and Throat: Denies change in voice, Denies dizziness, Denies neck pain, Denies sore throat and Denies throat swelling Cardiovascular Cardiovascular: Denies chest pain, Denies irregular heart rhythm, Denies lightheadedness, Denies palpitations, Denies dyspnea, Denies dyspnea on exertion and Denies orthopnea Respiratory Respiratory: Denies cough, Denies dyspnea, Denies dyspnea on exertion and Denies wheezing Gastrointestinal Gastrointestinal: Denies abdominal pain, Reports hematochezia, Denies change in bowel habits, Denies diarrhea, Denies nausea and Denies vomiting Genitourinary Genitourinary: Denies hematuria, Denies flank pain, Denies urinary incontinence and Denies urinary urgency Musculoskeletal Musculoskeletal: Denies back pain, Denies muscle weakness, Denies neck pain, Denies numbness and Denies tingling Integumentary/Breasts Skin/Breast: Denies pruritus, Denies erythema, Denies rash and Denies wounds Neurologic Neurologic: Denies behavioral changes, Denies confusion, Denies dizziness, Denies frequent falls, Denies loss of vision, Denies numbness, Denies tingling and Denies weakness Psychiatric Psychiatric: Denies anxiety, Denies behavioral changes, Denies confusion, Denies depression, Denies homicidal ideation and Denies suicidal ideation Endocrine Endocrine: Denies fatigue, Denies flushing and Denies palpitations Hematologic/Lymphatic Hematologic/Lymphatic: Denies easy bruising Allergic/Immunologic Allergic/Immunologic: Denies urticaria, Denies throat swelling and Denies wheezing Patient History Medical History Anxiety (Chronic) Chicken pox (Resolved ~1966) Cognitive dysfunction (Chronic) Depression (Chronic) Diabetes mellitus type 2, insulin dependent (Chronic ~2007) Fecal incontinence (Chronic) Fractures (Resolved ~2017) GERD without esophagitis (Chronic) Hearing loss (Chronic ~2016) High serum lactate (Chronic) Measles (Resolved ~1963) Oligodendroglioma (Chronic ~2011) Orthostatic hypotension (Chronic) Other and unspecified hyperlipidemia (Chronic) Ovarian cyst (Chronic ~1983) Seizure disorder (Chronic) Urinary incontinence (Chronic ~2015) Vision disorder (Chronic) Surgical History Anesthesia (Resolved) H/O pelvic surgery (Inactive ~2016) History of cholecystectomy (Resolved ~1987) History of hysterectomy (Resolved ~1988) Family History Father Cancer Diabetes mellitus Hypertension Sister Hypertension Sister Cancer Grandfather Heart disease Grandmother Heart disease Social History marital status: number of children: 3 household members: caregiver and other lives independently: Yes caregiver/support person: Yes housing: assisted living facility pets and animals: No education level: high school occupational status: disabled Previous occupational history: [employer] in [place] duncan/sikh: None leisure activities: games (twago - teamwork across [employer]) and other (Movies, TV) Smoking Status: Former smoker Tobacco: How many years used: 2 Smokeless tobacco user: other (Cigarettes) quit status: quit date established (2010) second hand exposure: No alcohol intake: never substance use type: does not use alcohol intake frequency: holidays/special occasions only Substance Use Type: does not use Exam Narrative Exam Narrative: GENERAL: [51] year old patient appears stated age. Flat affect, poor historian, morbidly obese HEAD: Atraumatic. Normocephalic. EYES: Pupils equal round and reactive. Extraocular motions intact. No scleral icterus. No injection or drainage. ENT: Nose without bleeding, purulent drainage. Throat without erythema, tonsillar hypertrophy or exudate. Airway patent. NECK: Trachea midline. Non tender CARDIOVASCULAR: Regular rate and rhythm without murmurs, gallops, or rubs. RESPIRATORY: Clear to auscultation. Breath sounds equal bilaterally. No wheezes, rales, or rhonchi. GASTROINTESTINAL: Abdomen soft, non-tender, nondistended. Significant amount of bright red blood per rectum, actively flowing briskly EXTREMITIES: No edema or joint tenderness. BACK: Nontender without deformity or crepitance. No flank tenderness. NEURO: AOx3. SKIN: No rash or erythema of visible areas Initial Vital Signs Initial Vital Signs: Vital Signs Pulse Rate 86 03/24/19 22:44 Respiratory Rate 16 03/24/19 22:44 Blood Pressure 144/88 H 03/24/19 22:44 Pulse Oximetry 97 03/24/19 22:44 Course Orders Ordered: ED Orders 03/24/19 22:45 Complete Blood Count AUTO DIFF Stat Comprehensive Metabolic Panel Stat Partial Thromboplastin Time Stat Prothrombin Time INR Stat Type and Screen Stat Discontinued Medications Pantoprazole Sodium (Protonix) 80 mg IV NOW ONE Stop: 03/25/19 00:27 Last Admin: 03/25/19 00:35 Dose: 80 mg Documented by: [facility] Consultations Consultation #1: Call to General surgery, will see patient and scope, requests bowel prep Dr. Godwin called and stated that though patient had historically been with Dr. Vaughn, that now she is her patient and she requests admission to hosp [facility] service call to hospitalist whom is happy to accept patient Time: 00:00 Vital Signs Vital signs: Vital Signs - 8 hr 03/24/19 22:44 03/25/19 00:11 Pulse Rate 86 89 Respiratory Rate 16 16 Blood Pressure 144/88 H Blood Pressure [Right Wrist] 124/74 Pulse Oximetry 97 98 MDM - GI Bleed Lab Data Result diagrams: 03/24/19 22:45 03/24/19 22:45 Labs: Lab Results 03/24/19 03/24/19 03/24/19 Range/Units 22:45 22:45 22:45 WBC 11.4 H (4.5-11.0) X10^3/uL RBC 3.65 L (4.0-5.2) X10^6/uL Hgb 12.1 (12.0-16.0) g/dL Hct 37.0 (36-46) % MCV 101.5 H (80-100) fL MCH 33.2 (26-34) PG MCHC 32.7 (30-36) % RDW 16.1 H (11.6-14.8) % Plt Count 193 (150-400) X10^3/uL Neut % (Auto) 78.6 H (50-75) % Lymph % (Auto) 13.3 L (25-40) % Norton % (Auto) 7.1 (3-14) % Eos % (Auto) 0.1 L (2-4) % Baso % (Auto) 0.9 (0-2) % Neut # (Auto) 8900 H (9104-8964) /uL Lymph # (Auto) 1500 (5601-5474) /uL Norton # (Auto) 800 (0-900) /uL Eos # (Auto) 0 (0-450) /uL Baso # (Auto) 100 (0-100) /uL PT 10.6 (10.1-12.7) SECONDS INR 0.9 (0.9-1.3) APTT 25 L (26.4-36.2) SECONDS Sodium 136 L (137-145) mmol/L Potassium 4.8 (3.4-5.1) mmol/L Chloride 102 (98-107) mmol/L Carbon Dioxide 26 (22-32) mmol/L BUN 29 H (7-17) mg/dL Creatinine 1.00 (0.52-1.04) mg/dL Estimated GFR 56.9 L (>60) mL/min BUN/Creatinine Ratio 29.0 H (6-22) Glucose 335 H (70-100) mg/dL Calcium 9.7 (8.4-10.2) mg/dL Total Bilirubin 0.6 (0.2-1.3) mg/dL AST 171 H (14-36) IU/L ALT 181 H (<35) IU/L Alkaline Phosphatase 287 H (38-126) U/L Total Protein 6.2 L (6.3-8.2) g/dL Albumin 3.6 (3.5-5.0) g/dL Globulin 2.6 (1.7-4.1) g/dL Albumin/Globulin Ratio 1.4 (1.0-2.8) Blood Type Antibody Screen 03/24/19 Range/Units 22:45 WBC (4.5-11.0) X10^3/uL RBC (4.0-5.2) X10^6/uL Hgb (12.0-16.0) g/dL Hct (36-46) % MCV (80-100) fL MCH (26-34) PG MCHC (30-36) % RDW (11.6-14.8) % Plt Count (150-400) X10^3/uL Neut % (Auto) (50-75) % Lymph % (Auto) (25-40) % Norton % (Auto) (3-14) % Eos % (Auto) (2-4) % Baso % (Auto) (0-2) % Neut # (Auto) (9723-6393) /uL Lymph # (Auto) (5278-8350) /uL Norton # (Auto) (0-900) /uL Eos # (Auto) (0-450) /uL Baso # (Auto) (0-100) /uL PT (10.1-12.7) SECONDS INR (0.9-1.3) APTT (26.4-36.2) SECONDS Sodium (137-145) mmol/L Potassium (3.4-5.1) mmol/L Chloride (98-107) mmol/L Carbon Dioxide (22-32) mmol/L BUN (7-17) mg/dL Creatinine (0.52-1.04) mg/dL Estimated GFR (>60) mL/min BUN/Creatinine Ratio (6-22) Glucose (70-100) mg/dL Calcium (8.4-10.2) mg/dL Total Bilirubin (0.2-1.3) mg/dL AST (14-36) IU/L ALT (<35) IU/L Alkaline Phosphatase (38-126) U/L Total Protein (6.3-8.2) g/dL Albumin (3.5-5.0) g/dL Globulin (1.7-4.1) g/dL Albumin/Globulin Ratio (1.0-2.8) Blood Type O Positive Antibody Screen Negative Discharge Plan Departure Patient Disposition: Admitted as Observation Clinical Impression: Bright red rectal bleeding Admit Date/Time: 03/25/19 00:36 Admit Provider: Francisca Zuñiga
[2019-03-25] VITALS (10 sets, daily range): BP systolic 118–140; BP diastolic 64–83; PULSE 65–89; RESP 16–20; TEMP 35.6–36.7; O2SAT 97–100; BMI 43.2
--- NOTE | 2019-03-25 00:04 | PC.NURSE ---
Pt arrived via EMS from [facility] for bright red rectal bleeding. Pt AAOx1. States the year is 1925. Appears pale, reports she is weak and dizzy. On assessment, Pt has bright red clots in brief and blood appears to have non stop ooze of bright red blood per rectum, Lungs clear, NSR 91, BP 124/74, Abd SNT with visible bruising to lower abd. pt denies use of blood thinners. Denies pain at this time. incontinence care provided and linens changed. IV in place. Awaiting further orders.
--- NOTE | 2019-03-25 00:32 | PC.NURSE ---
Pts hermelindo area,abdominal folds and groin cleaned,dried and barrier cream applied.
[2019-03-25] MEDS: PANTOPRAZOLE 40 MG VIAL 80 MG IV (00:35)
[2019-03-25] MEDS: PANTOPRAZOLE 80 MG in SODIUM CHLORIDE 0.9% 100 ML 10 ML IV (01:57)
[2019-03-25] MEDS: BISACODYL 5 MG TABLET PO (01:58)
--- NOTE | 2019-03-25 02:02 | P.HP_ITS ---
History of Present Illness History of Present Illness Date Patient Seen: 03/25/19 Time Patient Seen: 02:02 Chief complaint: Possible GI bleed Narrative: HPI is obtained via direct interview with the patient and review of records. Patient is an unreliable historian. She is awake, alert, and oriented to self only. Follows commands and able to make needs known. At this time her baseline mentation is not known. The patient is a 59-year-old female with PMH of cognitive dysfunction, oligodendraoglioma w/ prior radiation and chemotherapy, HTN, DM 2T, HLD, morbid obesity (BMI 43.2), seizure disorder, prior tobacco dependence, GERD, chronic pancreatitis, bladder stimulator in place (not a candidate for MRI/MRCP), bowel and bladder incontinence, and debility/deconditioning. Patient requires total care. She is wheelchair-bound at baseline. Patient presented to the ED via EMS transfer from [facility] on 03/24/2019 out of concern for hematochezia. Patient was noted to have heavy rectal bleeding with numerous clots and abdominal distension. According to the patient herself she has not been having any diarrhea or bloody stools. It is being communicated by the ED physician that patient was noted to have bright red clots and losing of blood out of her rectum. Her vital signs, both, at the care center (BP 125/78 HR 83) and ED (BP 144/88 HR 86) were stable. Presenting hemoglobin is 12.1 (baseline 11-12 g/dL). Associated symptoms include abdominal pain (LLQ), left flank pain, and generalized weakness. She denies dizziness, lighthead edness, nausea, and vomiting (including hematemesis). Reports shortness of breath; however, she is not dyspneic or tachypneic at rest. Denies CP and palpitations. Patient is unable to describe magnitude and quality of the pain, states it feels like shit. Reports pain to be similar to the pain she experienced 3 weeks ago. Reports experiencing frequent bruising. Patient is on ASA 81 QD (last taken 03/24) and ibuprofen 400 mg BID (last taken 03/24 0800). Patient has a complex past medical history. This is her 5th admission in the past 8 weeks for a combination of the following... Abdominal pain, dehydration, ZARA, UTI, constipation, acute on chronic pancreatitis, colitis, proctitis, and suspected GIB. Patient has had an EGD and a colonoscopy on 02/03/2019. EGD was unremarkable Colonoscopy with findings of polyps (s/p polypectomy) and proctitis. Previously was previously seen by Dr. Naveen Vaughn. At present time patient is being managed by Dr. Radha Turner, request is made for patient to be admitted to the hospitalist service. ED Presentation & Work-Up VS, 03/24 2244. BP 144/88 HR 86 RR 16 SpO2 97% on RA GCS 15 Labs, 04/03/2019 2245 WBC 11.4 HGB 12.[address]:T 193 PT 10.6 INR 0.9 aPTT 25 Na 136 K 4.8 Cl 102 Ca 9.7 Alb 3.6 GLU 335 CO2 26 BUN 29 Cr 1.0 BUN:Cr 29 AST 171 ALT 181 ALK Phos 287 T.Bili 0.6 No abdominal imaging was done. Patient was given 80 mg of IV Protonix in the ED. Patient History Medical History Anxiety (Chronic) Chicken pox (Resolved ~1966) Cognitive dysfunction (Chronic) Depression (Chronic) Diabetes mellitus type 2, insulin dependent (Chronic ~2007) Fecal incontinence (Chronic) Fractures (Resolved ~2017) GERD without esophagitis (Chronic) Hearing loss (Chronic ~2016) High serum lactate (Chronic) Measles (Resolved ~1963) Oligodendroglioma (Chronic ~2011) Orthostatic hypotension (Chronic) Other and unspecified hyperlipidemia (Chronic) Ovarian cyst (Chronic ~1983) Seizure disorder (Chronic) Urinary incontinence (Chronic ~2015) Vision disorder (Chronic) Surgical History Anesthesia (Resolved) H/O pelvic surgery (Inactive ~2016) History of cholecystectomy (Resolved ~1987) History of hysterectomy (Resolved ~1988) Family & Social History Family History Father Cancer Diabetes mellitus Hypertension Sister Hypertension Sister Cancer Grandfather Heart disease Grandmother Heart disease Social History: household members caregiver,other Prior Living Arrangements Skilled Nurse Facility lives independently Yes caregiver/support person Yes Safety & Behavioral: Feels Safe in Current Yes Environment Been Physically Hurt or No Threatened By a Person Tobacco & Substance use: Smoking Status Former smoker alcohol intake never alcohol intake frequency holiday/special occasion Substance Use Type does not use Meds Home Medications and Allergies Home Medications Medication Instructions Recorded Confirmed Type ondansetron HCl 4 mg tablet 4 mg PO Q6H PRN #30 tab 05/29/18 03/25/19 Rx loperamide 2 mg capsule 2 mg PO Q2-4H PRN #60 cap 10/17/18 03/25/19 Rx pen needle, diabetic 30 gauge x #100 each 11/20/18 03/20/19 Rx 5/16 dextromethorphan-guaifenesin 5 ml PO Q4H PRN #0 12/09/18 03/25/19 History [Robitussin Cough-Chest Gil DM] acetaminophen 325 mg tablet 650 mg PO Q4H PRN #90 tab 12/12/18 03/25/19 Rx meclizine 25 mg tablet 25 mg PO Q6H PRN #90 tab 12/12/18 03/25/19 Rx furosemide 40 mg PO DAILY 02/02/19 03/25/19 History lancets 30 gauge #100 each 02/02/19 03/20/19 Rx aspirin 81 mg tablet,delayed 81 mg PO DAILY #30 tab 03/02/19 03/25/19 Rx release atorvastatin 10 mg tablet 10 mg PO DAILY #30 tab 03/02/19 03/25/19 Rx cholecalciferol (vitamin D3) 1,000 1,000 unit PO DAILY #90 cap 03/02/19 03/25/19 Rx unit capsule citalopram 20 mg tablet 20 mg PO DAILY #90 tab 03/02/19 03/25/19 Rx dexamethasone 2 mg tablet 2 mg PO BID #60 tab 03/02/19 03/25/19 Rx folic acid 400 mcg tablet 0.4 mg PO QPM #90 tab 03/02/19 03/25/19 Rx hydrocortisone acetate 1 % topical 1 applic TOPICAL Q8H PRN #57 gram 03/02/19 03/25/19 Rx cream ibuprofen 400 mg tablet 400 mg PO BID #60 tab 03/02/19 03/25/19 Rx insulin glargine 100 unit/mL (3 65 unit SUBCUT DAILY #15 ml 03/02/19 03/25/19 Rx mL) subcutaneous pen insulin glargine 100 unit/mL (3 70 unit SUBCUT QPM #15 ml 03/02/19 03/25/19 Rx mL) subcutaneous pen levetiracetam 250 mg tablet 500 mg PO DAILY #60 tab 03/02/19 03/25/19 Rx levetiracetam 250 mg tablet 750 mg PO BEDTIME #90 tab 03/02/19 03/25/19 Rx magnesium oxide 400 mg (241.3 mg 400 mg PO BID #60 tab 03/02/19 03/25/19 Rx magnesium) tablet melatonin 3 mg tablet 6 mg PO BEDTIME #180 tab 03/02/19 03/25/19 Rx midodrine 5 mg tablet 5 mg PO BID #30 tab 03/02/19 03/25/19 Rx omega 9-rnh-hbt-fish oil 1,000 mg 1 cap PO DAILY #30 cap 03/02/19 03/25/19 Rx (120 mg-180 mg) capsule omeprazole 20 mg capsule,delayed 20 mg PO BID #180 cap 03/02/19 03/25/19 Rx release potassium chloride 20 mEq 40 meq PO BID #180 tab 03/02/19 03/25/19 Rx tablet,extended release(part/cryst) oxycodone-acetaminophen 1 tab PO BEDTIME PRN #30 tab 03/09/19 03/25/19 Rx polyethylene glycol 3350 17 17 gram PO DAILY #510 gram 03/19/19 03/25/19 Rx gram/dose oral powder Glucagon Emergency Kit (human) See Rx Instructions .ROUTE .COMPLEX 03/20/19 03/25/19 History sulfamethoxazole-trimethoprim 1 tab PO BID 30 Days #60 tab 03/20/19 03/25/19 Rx nystatin 100,000 unit/gram topical 1 applic TOPICAL PRN PRN #30 gram 03/23/19 03/25/19 Rx powder insulin lispro [Humalog U-100 1 sliding scale dose SUBCUT 03/25/19 03/25/19 Hist ory Insulin] USEASDIRECTD sennosides 17.2 mg PO BID 03/25/19 03/25/19 History Allergies Allergy/AdvReac Type Severity Reaction Status Date / Time adhesive tape Allergy Unknown Verified 01/14/19 20:39 Penicillins Allergy Unknown Verified 01/14/19 20:39 silicone Allergy Unknown Verified 01/14/19 20:39 zonisamide Allergy Unknown Verified 01/14/19 20:39 escitalopram AdvReac Unknown Verified 01/14/19 20:39 lamotrigine AdvReac Unknown Verified 01/14/19 20:39 Review of Systems Review of Systems ROS Unobtainable: All systems reviewed & are unremarkable except as noted in HPI and below Exam Vital Signs (past 8 hours): - 03/24/19 22:44 03/25/19 00:11 03/25/19 01:02 Temperature Pulse Rate 86 89 87 Respiratory Rate 16 16 16 Blood Pressure 144/88 H 128/83 Blood Pressure [Right Wrist] 124/74 Pulse Oximetry 97 98 97 03/25/19 01:15 Temperature 98.1 F Pulse Rate 86 Respiratory Rate 20 Blood Pressure 140/80 Blood Pressure [Right Wrist] Pulse Oximetry 100 Oxygen Delivery Method Room Air Oxygen Flow Rate 0 Narrative Exam Narrative: Constitutional: Patient appears older than her stated age. Morbidly obese habitus (BMI 43.2) w/ a malnourished disposition Neurologic: Awake. Alert. Oriented to self, season, and president. Aware of being in the hospital, but gives incorrect name. Notes year is 1919. Follows commands. No facial asymmetry. No unilateral extremity weakness. No tremor or fasciculations Poor historian Head: NC, AT Eyes: PERRL, EOMI, sclerae anicteric Ears: external ears normal, possibly hard of hearing Nose: external nose normal, no rhinorrhea or epistaxis Throat: Dry MM, oropharynx w/o exudate Neck: no masses, lymphadenopathy, or JVD Chest / Respiratory: Diminished breath sounds, no dyspnea or tachypnea at rest, on room air SpO2 96% Heart / CV: S1S2, no murmur, distant tones Abdomen / GI: Large and round, central obesity, pannus, soft Difficult to palpate for organomegaly given degree of obesity and large abdominal contour Bruising present on the abdomen. Left lower quadrant with hematoma (does not appear acute) Abdominal pain on palpation in the LLQ and left flank, potentially some refe rred pain in the LUQ No pain in the epigastric area, right upper quadrant or right lower quadrant : no suprapubic tenderness, no Edwards catheter present, by history patient has a bladder stimulator Peripheral / Vascular: warm to touch, there is b/l LE edema, DP and PT pulses palpable, no edema Musc: full ROM of upper and lower extremities, adequate muscle tone and bulk Skin: no ecchymosis or suspicious lesions / ulcers Objective Labs Result Diagrams: 03/25/19 02:55 03/25/19 02:55 Labs: Laboratory Results - last 24 hr 03/24/19 03/24/19 03/24/19 22:45 22:45 22:45 WBC 11.4 H RBC 3.65 L Hgb 12.1 Hct 37.0 MCV 101.5 H MCH 33.2 MCHC 32.7 RDW 16.1 H Plt Count 193 Neut % (Auto) 78.6 H Lymph % (Auto) 13.3 L [place] % (Auto) 7.1 Eos % (Auto) 0.1 L Baso % (Auto) 0.9 Neut # (Auto) 8900 H Lymph # (Auto) 1500 [place] # (Auto) 800 Eos # (Auto) 0 Baso # (Auto) 100 PT 10.6 INR 0.9 APTT 25 L Sodium 136 L Potassium 4.8 Chloride 102 Carbon Dioxide 26 BUN 29 H Creatinine 1.00 Estimated GFR 56.9 L BUN/Creatinine Ratio 29.0 H Glucose 335 H Calcium 9.7 Total Bilirubin 0.6 AST 171 H ALT 181 H Alkaline Phosphatase 287 H Total Protein 6.2 L Albumin 3.6 Globulin 2.6 Albumin/Globulin Ratio 1.4 Blood Type Antibody Screen 03/24/19 22:45 WBC RBC Hgb Hct MCV MCH MCHC RDW Plt Count Neut % (Auto) Lymph % (Auto) [place] % (Auto) Eos % (Auto) Baso % (Auto) Neut # (Auto) Lymph # (Auto) [place] # (Auto) Eos # (Auto) Baso # (Auto) PT INR APTT Sodium Potassium Chloride Carbon Dioxide BUN Creatinine Estimated GFR BUN/Creatinine Ratio Glucose Calcium Total Bilirubin AST ALT Alkaline Phosphatase Total Protein Albumin Globulin Albumin/Globulin Ratio Blood Type O Positive Antibody Screen Negative Assessment & Plan Assessment & Plan narrative: Patient is being admitted for hematochezia and con cern for lower GI hemorrhage. Lower GI hemorrhage, acute, present on admission, active - S/S hematochezia, weakness, and dyspnea. Etiology is not entirely known, potentially multi-factorial. Recently treated for proctitis. On ASA and chronic ibuprofen use. - D/C ASA and Ibuprofen (preferred indefinitely) - No s/s of hemodynamic decompensation at this time, will monitor closely - Presenting Hgb 12.1, at baseline (baseline b/w 11-12), trend Q4H - Consult General Surgery. ED provider, Dr. Shaw, spoke w/ Dr. Altamirano w/ reported plan for colonoscopy. Hospitalist service to initiate bowel prep. - Start bowel prep, will plan for an NGT if she is having difficulty drinking the prep - Received 80 mg IV protonix bolus in ED, will start on protonix gtt - Start IVF at 150 ml/hr - NPO, will hold all [employer] meds, with exception of those that can be continued in IV equivalent formulation Abdominal pain, acute on chronic, present on admission, active - LLQ pain with reported active hemorrhage. Recently has been constipated. There is a concern for active UTI. All could be contributing to pain the patient is experiencing. - Patient had a colonoscopy 1 month that was positive for proctitis, she was treated with steroid enemas. - Bowel prep tonight - IVF - Check CRP and lactate - Hold off on empiric therapy at this time ZARA, present on admission, active - Mild, sCr 1.0 (baseline 0.6-0.7 mg/dL), multi-factorial in the setting of acute hemorrhage, use of NSAIDs coupled w/ recent initiation of Bactrim - Trend renal function and electrolytes with routine lab - IVF started - Avoid /discontinue nephrotoxic agents, optimize renal perfusion IDDM 2T, chronic condition, present on admission, active / inadequately controlled A1C 8.5 (01/2019) with hyperglycemia. Review of med rec from correction shows BG POC [employer]IST regimen consists of Bassaglar 70 units QAM and 65 units QPM and Humalong SSI QID. - Hold home regimen - Currently NPO - GLU POC Q6H. Start on moderate does short-acting SSI Elevated liver enzymes, chronic, present on admission, active AST 171 ALT 181 ALK Phos 287 T.Bili 0.6 - Check lipase, history of recurrent chronic pancreatitis - Patient needs to see a specialist for further biliary work-up, ERCP was previously recommended. Patient unable to do MRCP due to presence of bladder stimulator. - Patient is on a number of medications predisposing to liver injury. Underlying hepatic steatosis. And triglyceridemia Positive urine culture 03/18/2019, present on admission, active - started on sulfamethoxazole-trimethoprim 800-160 b.i.d. for 30 days, started on 03/21 Enterobacter aerogenes > 1000,000 CFU/ml and Escherichia coli > 100,000 CFU/ml Patient is asymptomatic. No fever chills. Mild leukocytosis (likely reactive) on presentation with no significant left shift. Prior urine cultures have shown resistance to Bactrim with Enterobacter sp. Given count of bacterial species on urine culture I suspect that patient is colonized and further empiric therapy may be harmful harmful when considering long-term outcomes. If, ABX were to be continued I would recommend ertapenem. In addition Bactrim would not be an ideal choice as it tends to predispose or exacerbate pancreatitis. Chronic pancreatitis, present on admission, stable Denies history of alcohol use. Prior workup unremarkable for gallbladder disease, however the workup is only partially completed. Underlying risk factors of hepatic steatosis and elevated triglycerides. Patient is on a number of medications that would predispose towards pancreatitis. - patient's pain is not consistent with an acute pancreatic flare - check lipase Macrocytic anemia, chronic condition, present on admission, stable - Check B12/Folate Peripheral edema, chronic, present on admission, active - suspected to be multi-factorial, poorly controlled diabetes, chronic dexamethasone, and debility/deconditioning - currently patient is being hydrated, madie hold off on restarting Lasix - Echo, 12/09/2018 patient had a premature termination of the echocardiogram on 12/09/2018 due to d iscomfort caused by pro pressure. From that study normal LV size and EF noted. No abnormalities in the mitral or aortic valve noted. - Check BMP with a.m. labs. - Patient appears to be stable from respiratory standpoint at this time. If worsens will get a chest x-ray. Oligodendroglioma (dx 2011) w/ prior radiation and chemotherapy, chronic condition, present on admission, stable - She is being followed by oncology, Dr. Rodney - Continue [employer] regimen of dexamethasone 2 mg IV BID (IV formulation) Seizure disorder, chronic, present on admission, stable - Seizure precautions, last suspected seizure was in December of 2018 - Resume Keppra in IV formulation, [employer] regimen 500 mg QAM and 750 QPM missed evening dose on 03/24 due to late admission - Will give 750 mg for am dose x1, then resume regular dosing - Keppra level - Ativan 2 mg IV prn seizure activity Code status discussed. Patient is not mentating adequately to make a decision in regard to an advanced directive. She has a POLST form specifying DNR; however, patient verbalized that she wishes to make a change to FULL CODE. Her mother is her DPOA. Will need to contact her in the morning to discuss. Home medications reviewed and reconciled accordingly. VTE prophylaxis with SCDs. Quality VTE Deep Vein Thrombosis/Pulmonary Embolism Present on Admission: No
[2019-03-25] MEDS: SODIUM CHLORIDE 0.9% 1,000 ML 150 ML IV (02:04)
[2019-03-25] MEDS: PEG3350/SOD SULF,BICARB,CL/KCL 4,000 ML SOLUTION 2000 ML PO (02:28)
[2019-03-25] MEDS: INSULIN ASPART 100 UNIT/ML INSULN PEN SUBCUT ×2 (02:48→18:47)
[2019-03-25 03:14] LABS: Add Manual Diff / Slide Review NO; Basophils Absolute Auto 100 /uL (0-100); Basophils Percent Auto 1.1 % (0-2); Eosinophils Absolute Auto 0 /uL (0-450); Eosinophils Percent Auto 0.2 % (2-4); Hematocrit 35.2 % (36-46); Hemoglobin 11.8 g/dL (12.0-16.0); Lymphocytes Absolute Auto 1700 /uL (1100-4500); Lymphocytes Percent Auto 15.9 % (25-40); Mean Corpuscular HGB Conc 33.7 % (30-36); Mean Corpuscular Hemoglobin 33.9 PG (26-34); Mean Corpuscular Volume 100.9 fL (80-100); Monocytes Absolute Auto 800 /uL (0-900); Monocytes Percent Auto 7.6 % (3-14); Neutrophils Absolute Auto 8100 /uL (1500-7000); Neutrophils Percent Auto 75.2 % (50-75); Platelet Count 181 X10^3/uL (150-400); Red Blood Cell Count 3.49 X10^6/uL (4.0-5.2); Red Cell Distribution Width 15.8 % (11.6-14.8); White Blood Cell Count 10.7 X10^3/uL (4.5-11.0)
[2019-03-25 03:20] LABS: Lipase 348 U/L (23-300)
[2019-03-25 03:21] LABS: BUN Creatinine Ratio 36.3 (6-22); Blood Urea Nitrogen 29 mg/dL (7-17); Calcium 9.7 mg/dL (8.4-10.2); Carbon Dioxide 28 mmol/L (22-32); Chloride 104 mmol/L (98-107); Estimated Glomerular Filt Rate > 60.0 mL/min (>60); Glucose 277 mg/dL (70-100); HEMOLYSIS < 15 (0-50); Lactate (Lactic Acid) 2.1 mmol/L (0.7-2.1); Magnesium 1.9 mg/dL (1.6-2.3); Potassium 4.9 mmol/L (3.4-5.1); Sodium 137 mmol/L (137-145)
--- NOTE | 2019-03-25 03:37 | PC.ADMIT ---
911 Admission Note: Pt arrived to unit without issues. Transferred via slider board. Alert and oriented to self. Disoriented to time and location. Pt reports Left flank pain when palpating abdomen. Small amount red blood coming from rectum with dark clots, patient changed and WCTM. Seizure precautions in place. Scds applied. Telemetry applied, showing SR on the monitor. Pt has no complaints at this time. Skin check done with MANNY Wade. Scattered bruising shown throughout upper and lower extremities. Excoriation on coccyx, with blanchable redness. The patient,Breana Claudio,59 y/o, was given written information regarding hospital policies, unit procedures and contact persons. Patient's smoking status: Former smoker. Vital Signs - 8 hr 03/24/19 22:44 03/25/19 00:11 03/25/19 01:02 Temperature Pulse Rate 86 89 87 Respiratory Rate 16 16 16 Blood Pressure 144/88 H 128/83 Blood Pressure [Right Wrist] 124/74 Pulse Oximetry 97 98 97 03/25/19 01:15 Temperature 98.1 F Pulse Rate 86 Respiratory Rate 20 Blood Pressure 140/80 Blood Pressure [Right Wrist] Pulse Oximetry 100
--- NOTE | 2019-03-25 04:42 | PC.NURSE ---
Tommy NORIEGA perform guiac test. Guiac test results back positive
[2019-03-25 07:22] LABS: Eosinophils Absolute Auto 0 /uL (0-450); Hemoglobin 11.7 g/dL (12.0-16.0); Monocytes Absolute Auto 900 /uL (0-900)
[2019-03-25 07:35] LABS: Add Manual Diff / Slide Review NO; Basophils Absolute Auto 0 /uL (0-100); Basophils Percent Auto 0.4 % (0-2); Eosinophils Percent Auto 0.5 % (2-4); Hematocrit 34.4 % (36-46); Lymphocytes Absolute Auto 1800 /uL (1100-4500); Lymphocytes Percent Auto 17.1 % (25-40); Mean Corpuscular Hemoglobin 34.4 PG (26-34); Mean Corpuscular Volume 101.1 fL (80-100); Monocytes Percent Auto 8.7 % (3-14); Neutrophils Absolute Auto 7600 /uL (1500-7000); Neutrophils Percent Auto 73.3 % (50-75); Platelet Count 177 X10^3/uL (150-400); Red Cell Distribution Width 15.3 % (11.6-14.8); White Blood Cell Count 10.4 X10^3/uL (4.5-11.0)
[2019-03-25 07:40] LABS: Alanine Aminotransferase 181 IU/L (<35); Albumin 3.5 g/dL (3.5-5.0); Albumin Globulin Ratio 1.3 (1.0-2.8); Alkaline Phosphatase 258 U/L (38-126); Aspartate Aminotransferase 143 IU/L (14-36); BUN Creatinine Ratio 33.8 (6-22); Bilirubin Total 0.6 mg/dL (0.2-1.3); Blood Urea Nitrogen 27 mg/dL (7-17); Calcium 9.5 mg/dL (8.4-10.2); Carbon Dioxide 29 mmol/L (22-32); Chloride 103 mmol/L (98-107); Estimated Glomerular Filt Rate > 60.0 mL/min (>60); Globulin 2.6 g/dL (1.7-4.1); Glucose 210 mg/dL (70-100); HEMOLYSIS < 15 (0-50); Magnesium 1.9 mg/dL (1.6-2.3); Potassium 4.1 mmol/L (3.4-5.1); Sodium 137 mmol/L (137-145); Total Protein 6.1 g/dL (6.3-8.2)
[2019-03-25 07:41] LABS: C-Reactive Protein Quant 1.6 mg/dL (<1.0)
[2019-03-25 07:49] LABS: B Type Natriuretic Peptide < 100 (<100)
[2019-03-25 07:53] LABS: Procalcitonin 0.43 ng/mL (<0.5)
--- NOTE | 2019-03-25 08:27 | DI.CT.S_ITS ---
PROCEDURE: CT ABDOMEN PELVIS W CON INDICATIONS: possible colitis TECHNIQUE: After the administration of intravenous contrast, 5 mm thick sections acquired from the diaphragm to the symphysis. 5 mm coronal and sagittal reformats were acquired. For radiation dose reduction, the following was used: automated exposure control, adjustment of mA and/or kV according to patient size. COMPARISON: [facility], CT, CT ABDOMEN PELVIS W CON, 03/07/2019, 14:30. FINDINGS: Image quality: Excellent. ABDOMEN: Lung bases: Lung bases are clear. Minimal dependent atelectasis versus atelectasis. Small calcified granuloma. Heart size is normal. Solid organs: Liver is normal in size. Hepatic steatosis. Gallbladder is surgically absent. Biliary system is non dilated. Pancreas enhances normally. Spleen is normal in size and enhancement. No adrenal nodules. Kidneys demonstrate normal size and enhancement, without hydronephrosis. Small simple left renal cyst. Peritoneum and bowel: The rectum is now decompressed which limits evaluation for wall thickening. No perirectal fat stranding or enlarged mesorectal lymph nodes. No fluid collection. A few sigmoid colon diverticula. No bowel obstruction. The appendix is not identified. No free fluid or air. Nodes and vessels: No retroperitoneal or mesenteric adenopathy by size criteria. Aorta and inferior vena cava are normal in size. Miscellaneous: No ventral hernias. Subcutaneous ventral abdominal wall nodules likely due to subcutaneous injections. PELVIS: Genitourinary: Bladder wall thickness is normal. Uterus is absent. Miscellaneous: No inguinal hernias or adenopathy. Right buttocks generator device with right sacral lead. Bones: No suspicious bony lesions. No vertebral body compression fractures. IMPRESSION: 1. The rectum is now decompressed which limits evaluation for bowel wall thickening. However, no adjacent inflammatory change demonstrated. 2. No bowel obstruction. 3. Hepatic steatosis. Dictated by: Dave Singh M.D. on 03/25/2019 at 12:21 Approved by: Dave Singh M.D. on 03/25/2019 at 12:32
[2019-03-25 08:45] LABS: Folate 11.4 ng/mL (2.76-20.0); Vitamin B12 383 pg/mL (239-931)
[2019-03-25] MEDS: DEXAMETHASONE 4 MG/ML VIAL 2 MG IV (09:52)
[2019-03-25] MEDS: INSULIN ASPART 100 UNIT/ML 10ML VIAL SUBCUT (09:52)
[2019-03-25] MEDS: levETIRAcetam 500 MG in SODIUM CHLORIDE 0.9% 100 ML 420 ML IV (10:00)
--- NOTE | 2019-03-25 13:08 | P.CONS_ITS ---
History of Present Illness Consult details Date Patient Seen: 03/25/19 Time Patient Seen: 13:20 Chief complaint: Possible GI bleed Narrative: This is a 59-year-old woman with multiple medical problems including DM, dementia and brain tumor which makes obtaining her complete history difficult. Essentially she presented to the emergency room yesterday transferred from her correction facility for reports of bright red blood per rectum. Once she was admitted to the hospital she has had no further episodes bloody bowel movements her initial hematocrit was 37 it was 36 1 week ago, hemodynamically stable. She recently underwent EGD and colonoscopy by my partner 6 weeks ago that was entirely normal with the exception of proctitis. She was to be treated with steroid enemas I am unclear as to if she was actually receiving them at her living facility. [facility] Medical History Anxiety (Chronic) Chicken pox (Resolved ~1966) Cognitive dysfunction (Chronic) Depression (Chronic) Diabetes mellitus type 2, insulin dependent (Chronic ~2007) Fecal incontinence (Chronic) Fractures (Resolved ~2017) GERD without esophagitis (Chronic) Hearing loss (Chronic ~2016) High serum lactate (Chronic) Measles (Resolved ~1963) Oligodendroglioma (Chronic ~2011) Orthostatic hypotension (Chronic) Other and unspecified hyperlipidemia (Chronic) Ovarian cyst (Chronic ~1983) Seizure disorder (Chronic) Urinary incontinence (Chronic ~2015) Vision disorder (Chronic) Surgical History Anesthesia (Resolved) H/O pelvic surgery (Inactive ~2016) History of cholecystectomy (Resolved ~1987) History of hysterectomy (Resolved ~1988) Family History Father Cancer Diabetes mellitus Hypertension Sister Hypertension Sister Cancer Grandfather Heart disease Grandmother Heart disease Social History marital status: number of children: 3 household members: caregiver and other lives independently: Yes caregiver/support person: Yes housing: assisted living facility pets and animals: No education level: high school occupational status: disabled Previous occupational history: [employer] in [place] duncan/hinduism: None leisure activities: games (Bingo) and other (Movies, TV) Smoking Status: Former smoker Tobacco: How many years used: 2 Smokeless tobacco user: other (Cigarettes) quit status: quit date established (2010) second hand exposure: No alcohol intake: never substance use type: does not use Meds Home Medications and Allergies Home Medications Medication Instructions Recorded Confirmed Type ondansetron HCl 4 mg tablet 4 mg PO Q6H PRN #30 tab 05/29/18 03/25/19 Rx loperamide 2 mg capsule 2 mg PO Q2-4H PRN #60 cap 10/17/18 03/25/19 Rx pen needle, diabetic 30 gauge x #100 each 11/20/18 03/25/19 Rx 5/16 dextromethorphan-guaifenesin 5 ml PO Q4H PRN #0 12/09/18 03/25/19 History [Robitussin Cough-Chest Gil DM] acetaminophen 325 mg tablet 650 mg PO Q4H PRN #90 tab 12/12/18 03/25/19 Rx meclizine 25 mg tablet 25 mg PO Q6H PRN #90 tab 12/12/18 03/25/19 Rx furosemide 40 mg PO DAILY 02/02/19 03/25/19 History lancets 30 gauge #100 each 02/02/19 03/25/19 Rx aspirin 81 mg tablet,delayed 81 mg PO DAILY #30 tab 03/02/19 03/25/19 Rx release atorvastatin 10 mg tablet 10 mg PO DAILY #30 tab 03/02/19 03/25/19 Rx cholecalciferol (vitamin D3) 1,000 1,000 unit PO DAILY #90 cap 03/02/19 03/25/19 Rx unit capsule citalopram 20 mg tablet 20 mg PO DAILY #90 tab 03/02/19 03/25/19 Rx dexamethasone 2 mg tablet 2 mg PO BID #60 tab 03/02/19 03/25/19 Rx folic acid 400 mcg tablet 0.4 mg PO QPM #90 tab 03/02/19 03/25/19 Rx hydrocortisone acetate 1 % topical 1 applic TOPICAL Q8H PRN #57 gram 03/02/19 03/25/19 Rx cream ibuprofen 400 mg tablet 400 mg PO BID #60 tab 03/02/19 03/25/19 Rx insulin glargine 100 unit/mL (3 65 unit SUBCUT DAILY #15 ml 03/02/19 03/25/19 Rx mL) subcutaneous pen insulin glargine 100 unit/mL (3 70 unit SUBCUT QPM #15 ml 03/02/19 03/25/19 Rx mL) subcutaneous pen levetiracetam 250 mg tablet 500 mg PO DAILY #60 tab 03/02/19 03/25/19 Rx levetiracetam 250 mg tablet 750 mg PO BEDTIME #90 tab 03/02/19 03/25/19 Rx magnesium oxide 400 mg (241.3 mg 400 mg PO BID #60 tab 03/02/19 03/25/19 Rx magnesium) tablet melatonin 3 mg tablet 6 mg PO BEDTIME #180 tab 03/02/19 03/25/19 Rx midodrine 5 mg tablet 5 mg PO BID #30 tab 03/02/19 03/25/19 Rx omega 7-jbn-jsv-fish oil 1,000 mg 1 cap PO DAILY #30 cap 03/02/19 03/25/19 Rx (120 mg-180 mg) capsule omeprazole 20 mg capsule,delayed 20 mg PO BID #180 cap 03/02/19 03/25/19 Rx release potassium chloride 20 mEq 40 meq PO BID #180 tab 03/02/19 03/25/19 Rx tablet,extended release(part/cryst) oxycodone-acetaminophen 1 tab PO BEDTIME PRN #30 tab 03/09/19 03/25/19 Rx polyethylene glycol 3350 17 17 gram PO DAILY #510 gram 03/19/19 03/25/19 Rx gram/dose oral powder Glucagon Emergency Kit (human) See Rx Instructions .ROUTE .COMPLEX 03/20/19 03/25/19 History sulfamethoxazole-trimethoprim 1 tab PO BID 30 Days #60 tab 03/20/19 03/25/19 Rx nystatin 100,000 unit/gram topical 1 applic TOPICAL PRN PRN #30 gram 03/23/19 03/25/19 Rx powder insulin lispro [Humalog U-100 1 sliding scale dose SUBCUT 03/25/19 03/25/19 History Insulin] USEASDIRECTD sennosides 17.2 mg PO BID 03/25/19 03/25/19 History Allergies Allergy/AdvReac Type Severity Reaction Status Date / Time adhesive tape Allergy Unknown Verified 01/14/19 20:39 Penicillins Allergy Unknown Verified 01/14/19 20:39 silicone Allergy Unknown Verified 01/14/19 20:39 zonisamide Allergy Unknown Verified 01/14/19 20:39 escitalopram AdvReac Unknown Verified 01/14/19 20:39 lamotrigine AdvReac Unknown Verified 01/14/19 20:39 Exam Vital Signs (past 8 hours): - 03/25/19 06:00 03/25/19 08:37 Temperature 97.4 F L 97.6 F Pulse Rate 81 84 Respiratory Rate 19 18 Blood Pressure 132/83 128/72 Pulse Oximetry 100 97 Oxygen Delivery Method Room Air Oxygen Flow Rate 0 Narrative Exam Narrative: General-no acute distress, obese woman HEENT-moist mucous membranes, no scleral icterus Neck-supple, no lymphadenopathy Chest- non labored respirations, clear to auscultation bilaterally Cardiac-regular rate no peripheral edema Abdomen-soft, nontender, non distended Extremities-warm, well perfused Neurological-alert but entirely disoriented Objective Labs Result Diagrams: 03/25/19 07:02 03/25/19 07:02 Labs: Laboratory Results - last 24 hr 03/24/19 03/24/19 03/24/19 22:45 22:45 22:45 WBC 11.4 H RBC 3.65 L Hgb 12.1 Hct 37.0 MCV 101.5 H MCH 33.2 MCHC 32.7 RDW 16.1 H Plt Count 193 Neut % (Auto) 78.6 H Lymph % (Auto) 13.3 L Nicholas % (Auto) 7.1 Eos % (Auto) 0.1 L Baso % (Auto) 0.9 Neut # (Auto) 8900 H Lymph # (Auto) 1500 Nicholas # (Auto) 800 Eos # (Auto) 0 Baso # (Auto) 100 PT 10.6 INR 0.9 APTT 25 L Sodium 136 L Potassium 4.8 Chloride 102 Carbon Dioxide 26 BUN 29 H Creatinine 1.00 Estimated GFR 56.9 L BUN/Creatinine Ratio 29.0 H Glucose 335 H Lactate Calcium 9.7 Magnesium Total Bilirubin 0.6 AST 171 H ALT 181 H Alkaline Phosphatase 287 H C-Reactive Protein B-Natriuretic Peptide Total Protein 6.2 L Albumin 3.6 Globulin 2.6 Albumin/Globulin Ratio 1.4 Lipase Vitamin B12 Folate Procalcitonin Blood Type Antibody Screen 03/24/19 03/25/19 03/25/19 22:45 02:55 02:55 WBC 10.7 RBC 3.49 L Hgb 11.8 L Hct 35.2 L MCV 100.9 H MCH 33.9 MCHC 33.7 RDW 15.8 H Plt Count 181 Neut % (Auto) 75.2 H Lymph % (Auto) 15.9 L Nicholas % (Auto) 7.6 Eos % (Auto) 0.2 L Baso % (Auto) 1.1 Neut # (Auto) 8100 H Lymph # (Auto) 1700 Nicholas # (Auto) 800 Eos # (Auto) 0 Baso # (Auto) 100 PT INR APTT Sodium 137 Potassium 4.9 Chloride 104 Carbon Dioxide 28 BUN 29 H Creatinine 0.80 Estimated GFR > 60.0 BUN/Creatinine Ratio 36.3 H Glucose 277 H Lactate Calcium 9.7 Magnesium 1.9 Total Bilirubin AST ALT Alkaline Phosphatase C-Reactive Protein B-Natriuretic Peptide Total Protein Albumin Globulin Albumin/Globulin Ratio Lipase Vitamin B12 Folate Procalcitonin Blood Type O Positive Antibody Screen Negative 03/25/19 03/25/19 03/25/19 02:55 02:55 07:02 WBC RBC Hgb Hct MCV MCH MCHC RDW Plt Count Neut % (Auto) Lymph % (Auto) Nicholas % (Auto) Eos % (Auto) Baso % (Auto) Neut # (Auto) Lymph # (Auto) Nicholas # (Auto) Eos # (Auto) Baso # (Auto) PT INR APTT Sodium Potassium Chloride Carbon Dioxide BUN Creatinine Estimated GFR BUN/Creatinine Ratio Glucose Lactate 2.1 Calcium Magnesium Total Bilirubin AST ALT Alkaline Phosphatase C-Reactive Protein B-Natriuretic Peptide < 100 Total Protein Albumin Globulin Albumin/Globulin Ratio Lipase 348 H Vitamin B12 Folate Procalcitonin Blood Type Antibody Screen 03/25/19 03/25/19 03/25/19 07:02 07:02 07:02 WBC 10.4 RBC 3.40 L Hgb 11.7 L Hct 34.4 L MCV 101.1 H MCH 34.4 H MCHC 34.0 RDW 15.3 H Plt Count 177 Neut % (Auto) 73.3 Lymph % (Auto) 17.1 L Nicholas % (Auto) 8.7 Eos % (Auto) 0.5 L Baso % (Auto) 0.4 Neut # (Auto) 7600 H Lymph # (Auto) 1800 Nicholas # (Auto) 900 Eos # (Auto) 0 Baso # (Auto) 0 PT INR APTT Sodium 137 Potassium 4.1 Chloride 103 Carbon Dioxide 29 BUN 27 H Creatinine 0.80 Estimated GFR > 60.0 BUN/Creatinine Ratio 33.8 H Glucose 210 H Lactate Calcium 9.5 Magnesium 1.9 Total Bilirubin 0.6 AST 143 H ALT 181 H Alkaline Phosphatase 258 H C-Reactive Protein B-Natriuretic Peptide Total Protein 6.1 L Albumin 3.5 Globulin 2.6 Albumin/Globulin Ratio 1.3 Lipase Vitamin B12 383 Folate 11.4 Procalcitonin Blood Type Antibody Screen 03/25/19 03/25/19 07:02 07:02 WBC RBC Hgb Hct MCV MCH MCHC RDW Plt Count Neut % (Auto) Lymph % (Auto) Nicholas % (Auto) Eos % (Auto) Baso % (Auto) Neut # (Auto) Lymph # (Auto) Nicholas # (Auto) Eos # (Auto) Baso # (Auto) PT INR APTT Sodium Potassium Chloride Carbon Dioxide BUN Creatinine Estimated GFR BUN/Creatinine Ratio Glucose Lactate Calcium Magnesium Total Bilirubin AST ALT Alkaline Phosphatase C-Reactive Protein 1.6 H B-Natriuretic Peptide Total Protein Albumin Globulin Albumin/Globulin Ratio Lipase Vitamin B12 Folate Procalcitonin 0.43 Blood Type Antibody Screen Assessment & Plan Assessment & Plan narrative: This is a 59-year-old woman with a complex medical history who presents with a some bright red blood per rectum per staff at her [place] [facility]. She has been having no further bloody bowel movements since hospital admission and hct 37 on admission, hemodynamically stable. In addition she underwent EGD and colonoscopy 6 weeks ago which was notable only for proctitis. She was suppose to be receiving steroid enemas its unclear to me if this has been occurring at her facility. I doubt that another colonoscopy at this point will contribute to her care. I will order a bleeding scan to evaluate for another possible source and if this is negative it is likely that her proctitis has not yet been adequately treated. -Clears -Bleeding scan -Hydrocortisone enema daily
--- NOTE | 2019-03-25 13:41 | CM.DPC ---
DCP Cont: Faxed H&P to [facility] at fax # [phone] as requested. Fax confirmation scanned in. Ines Mcneil, [facility] Hospital[facility]
[2019-03-25] MEDS: NYSTATIN POWDER 30 GM 1 APPLIC TOP ×3 (13:47→19:00)
[2019-03-25] MEDS: FLUCONAZOLE 150 MG TABLET PO (14:08)
--- NOTE | 2019-03-25 14:13 | CM.DANOTE ---
Patient is a 59 year old female who was admitted on 03/25/19 for Possible G.I. Bleed. Pt has [facility] for insurance and her PCP has changed from Dr. Vaughn to Dr. Godwin. EMR was reviewed. Per MD, pt has had at least 8 admissions in the past couple months for multiple medical concerns. Pt is a poor historian due to cognitive deficits and is mostly w/c bound and total care. Surgeon Consult for possible need for colonoscopy to determine source of bleed. Per Consult, no significant source or need for further intervention at this time and per MD pt may be stable for d/c back to [facility] tomorrow if remains stable overnight. MD consulted with Dr. Vaughn and Dr. Godwin regarding pt's ongoing medical complexity. SW called RN Violet at [facility] and confirmed that pt was admitted from their facility and had recently been discharged from [facility] to [facility] and was transferred to [facility] to be closer to [facility] and has been at [facility] for a week or so. Family requested [facility] in-house MD Dr. Godwin be pt's ongoing PCP as she is already at [facility]. Violet aware that pt may be stable for d/c soon and will send an RN to assess if needed tomorrow. ALEX called pt's mom/DPOA Mackenzie Clark ([phone]) and confirmed that she is aware that pt is admitted to the hospital again. Mother states that she has DPOA pwk but that it is not notarized. Mother and pt's sister Lena both live in [place] but pt has 2 brothers who live in [place] and visit pt regularly. Mother states that she is frustrated that pt continues to be admitted to the hospital with no good source of her bleeding or medical needs and is appreciative of all the care provided. Mother states that she does not speak to the pt much on the phone anymore as pt cannot hear well and does not talk much anymore. Mother is agreeable with d/c back to [facility] when stable. PEARL Chacon kindly faxed H&P to pt's assigned ZBIGNIEW JÚNIOR Murphy and SW left [facility] regarding her admission to [phone]. Pt also connected with [facility] with assigned júnior Lazo for community coordination of services. Plan: SW to follow closely tomorrow for coordination with [facility] for bedside assessment for pt to return when stable for discharge and to keep pt's mother Mackenzie updated on pt status and d/c. MERRY Aguirre Discharge Planning/Care Management CM Discharge Assessment Start: 03/25/19 14:09 Freq: Status: Active Protocol: Document 03/25/19 14:10 BF (Rec: 03/25/19 14:13 BF [id number]) Discharge Planning Assessment Assigned Licensed Insurance Sales Agent KASSY Castro DPOA/Assigned Designee Name Mother Mackenzie Clark Contact Information [phone] Advance Directives? Yes: POLST Advance Directives on File Yes History Provided By Patient,Family Member,Medical Record Has Patient been admitted in last 30 Yes days? Comment Recently discharged 03/20/19 back to [facility] Prior Living Arrangements Assisted Living Household Members other Type of transporation used prior to Relies on Others admit Facility Name Admitted From: [facility] Willing to Return to Facility? Yes Independent with ADL's No Is patient alert and oriented? No Needs Assistance With Grooming,Meal Prep,Toileting, Managing Medications,Home Chores / Shopping Caregiver for Another No Comment Has frida lift for transfers. Name of Agency [facility] Faxed Yes Comment Faxed Zbigniew CALLEJAS Comment Likely return to [facility] Barriers to Discharge No Comment Has had multiple readmissions Discharge Plan Assisted Living Facility Transportation Arrangement Likely facility van Referrals Initiated None needed Additional Comment Patient is enrolled in [facility] program. They check on patient monthly at [facility]. Contact is Ajay Lazo ph# [phone]. Left message with Ajay Lazo, and Gillian [facility]. ZBIGNIEW case therapist at: [phone] Review Status In Process Please Provide Date Initial DC 03/25/19 Assessment Was Performed Next Review Type Continued Stay Review
[2019-03-25] MEDS: IBUPROFEN 400 MG TABLET PO (22:35)
[2019-03-25] MEDS: levETIRAcetam 250 MG TABLET 750 MG PO (22:36)
[2019-03-25] MEDS: MAGNESIUM OXIDE 400 MG TABLET PO (22:37)
[2019-03-25] MEDS: dexAMETHasone 1 MG TABLET 2 MG PO (22:37)
[2019-03-25] MEDS: MELATONIN 3 MG TABLET PO (22:37)
[2019-03-25] MEDS: MIDODRINE HCL 5 MG TABLET PO (22:38)
[2019-03-25] MEDS: HYDROCORTISONE 100 MG/60 ML ENEMA PR (22:38)
[2019-03-25] MEDS: PANTOPRAZOLE 40 MG TABLET PO (22:40)
[2019-03-25] MEDS: INSULIN GLARGINE 100 UNIT/ML 3ML PEN 60 UNIT SUBCUT (22:42)
[2019-03-26 05:00] VITALS: BP 114/65; PULSE 64; RESP 16; TEMP 36.1; O2SAT 99
[2019-03-26] MEDS: INSULIN ASPART 100 UNIT/ML INSULN PEN SUBCUT ×3 (05:56→18:08)
[2019-03-26] MEDS: PANTOPRAZOLE 40 MG TABLET PO ×2 (06:00→22:30)
[2019-03-26 06:50] LABS: Hematocrit 30.8 % (36-46); Hemoglobin 10.7 g/dL (12.0-16.0); Mean Corpuscular HGB Conc 34.8 % (30-36); Mean Corpuscular Hemoglobin 34.9 PG (26-34); Mean Corpuscular Volume 100.4 fL (80-100); Platelet Count 154 X10^3/uL (150-400); Red Blood Cell Count 3.07 X10^6/uL (4.0-5.2); White Blood Cell Count 7.4 X10^3/uL (4.5-11.0)
[2019-03-26 07:00] LABS: Blood Urea Nitrogen 15 mg/dL (7-17); Calcium 9.4 mg/dL (8.4-10.2); Carbon Dioxide 27 mmol/L (22-32); Chloride 105 mmol/L (98-107); Estimated Glomerular Filt Rate > 60.0 mL/min (>60); Glucose 168 mg/dL (70-100); HEMOLYSIS < 15 (0-50); Potassium 3.9 mmol/L (3.4-5.1); Sodium 137 mmol/L (137-145)
[2019-03-26 09:00] VITALS: BP 128/71; PULSE 64; RESP 16; TEMP 36.4; O2SAT 96
[2019-03-26 09:23] VITALS: O2SAT 97
[2019-03-26] MEDS: POTASSIUM CHLORIDE 20 MEQ TAB 40 MEQ PO ×2 (09:42→21:26)
[2019-03-26] MEDS: POLYETHYLENE GLYCOL 3350 17 GM POWD.PACK PO (09:42)
[2019-03-26] MEDS: IBUPROFEN 400 MG TABLET PO ×2 (09:42→21:25)
[2019-03-26] MEDS: levETIRAcetam 250 MG TABLET 500 MG PO (09:42)
[2019-03-26] MEDS: ASPIRIN EC 81 MG TABLET PO (09:43)
[2019-03-26] MEDS: SENNOSIDES 8.6 MG TABLET 17.2 MG PO ×2 (09:43→21:21)
[2019-03-26] MEDS: CITALOPRAM 20 MG TABLET PO (09:43)
[2019-03-26] MEDS: MAGNESIUM OXIDE 400 MG TABLET PO ×2 (09:43→21:25)
[2019-03-26] MEDS: FUROSEMIDE 40 MG TABLET PO (09:43)
[2019-03-26] MEDS: MIDODRINE HCL 5 MG TABLET PO ×2 (09:44→21:24)
[2019-03-26] MEDS: ATORVASTATIN 10 MG TABLET PO (09:44)
[2019-03-26] MEDS: NYSTATIN POWDER 30 GM 1 APPLIC TOP ×2 (09:44→22:30)
[2019-03-26] MEDS: FOLIC ACID 0.4 MG TABLET PO (09:44)
[2019-03-26] MEDS: dexAMETHasone 1 MG TABLET 2 MG PO ×2 (09:45→22:30)
[2019-03-26] MEDS: FLUCONAZOLE 150 MG TABLET PO (09:45)
--- NOTE | 2019-03-26 11:30 | PT.IIE ---
Surgery Performed Operation Date: 03/25/19 16:45 <No data on this case meets the specified criteria> Surgical History (Last Reviewed 03/25/19 @ 13:08 by Connor Altamirano MD) Anesthesia (Resolved) H/O pelvic surgery (Inactive ~2016) History of cholecystectomy (Resolved ~1987) History of hysterectomy (Resolved ~1988) Medical History (Last Reviewed 03/25/19 @ 13:08 by Connor Altamirano MD) Anxiety (Chronic) Chicken pox (Resolved ~1966) Cognitive dysfunction (Chronic) Depression (Chronic) Diabetes mellitus type 2, insulin dependent (Chronic ~2007) Fecal incontinence (Chronic) Fractures (Resolved ~2017) GERD without esophagitis (Chronic) Hearing loss (Chronic ~2016) High serum lactate (Chronic) Measles (Resolved ~1963) Oligodendroglioma (Chronic ~2011) Orthostatic hypotension (Chronic) Other and unspecified hyperlipidemia (Chronic) Ovarian cyst (Chronic ~1983) Seizure disorder (Chronic) Urinary incontinence (Chronic ~2015) Vision disorder (Chronic) Physical Therapy Inpatient Evaluation/Re-Eval M1 PT/OT-IP Prior Functional Status Start: 03/26/19 13:18 Freq: NEEDED Status: Active Protocol: Document 03/26/19 11:30 AB (Rec: 03/26/19 13:36 AB [id number]) Medical Review Prior Functional Status Medical History Reviewed Yes Communication able to verbalize needs but is not consistent with providing appropriate answers to questions Mobility and Gait per [facility]: pt is a frida lift transfer and requires 2-3 person to assist with mobility. pt is w/c bound and requires assist with w/c mobility Activities of Daily Living and IADL's [facility] stated that pt is max to total A with care Social History Household Members caregiver,other Living Arrangements Skilled Nurse Facility Home Equipment Manual Wheelchair,Mechanical Lift,Hospital Bed M2 PT-IP Current Condition Start: 03/26/19 13:18 Freq: NEEDED Status: Active Protocol: Document 03/26/19 11:30 AB (Rec: 03/26/19 13:36 AB [id number]) Physical Therapy Current Condition Current Condition Evaluation Date 03/26/19 Treatment Diagnosis GI bleed; generalized weakness Onset Date 03/25/19 M3 PT-IP Subjective Start: 03/26/19 13:18 Freq: NEEDED Status: Active Protocol: Document 03/26/19 11:30 AB (Rec: 03/26/19 13:36 AB [id number]) Subjective Physical Therapy Visit Type Type Initial Evaluation Visit Start Time 11:30 Visit Stop Time 11:50 Total Visit Minutes 20 Number of PHOTOGRAMMETRIC TECH Visits 0 Physical Therapy Visit Comments Patient Comments pt agreeable to do PT Therapy Pain Assessment Pain When Pain Assessed During Mobility Pain Present Pain Present Pain Reported Location Left Hip Scale Used pain scale not stated Pain Behaviors Guarding,Wincing M4 PT-IP Mobility and Gait Start: 03/26/19 13:18 Freq: NEEDED Status: Active Protocol: Document 03/26/19 11:30 AB (Rec: 03/26/19 13:36 AB [id number]) PT-Bed Mobility Assessment Supine to Sit Supine to Sit Maximum Assistance,1 Person Assistance,2 Person Assistance ,Head of Bed Elevated Sit to Supine Sit to Supine Maximum Assistance,Total Assistance,2 Person Assistance Scooting Scooting to Edge of Bed Maximum Assistance Scooting Up and Down in Bed Maximum Assistance PT-Transfer Assessment Sit to and From Stand Sit to and from Stand Maximum Assistance,2 Person Assistance,Use of Upper Extremities Equipment Transfer Assistive Device Gait Belt,Front Wheeled Walker Comments Mobility Comments pt completed bed mobility max A x 1-2 with max cues and HOB elevated. pt was able to sit on EOB with initial mod A and able to sit with CGA to min A after repositioning. pt completed sit <>stand x 2 reps requiring max A x 2 and another person stabilizing the FWW. pt was not able to stand fully upright and with increase leaning of BLE against the bed. pt assisted back to bed requiring max A x 2 sit to supine and required max A x 2 for positioning in bed. call light and table placed within reach. PT-Balance Assessment Sitting Balance and Reactions Static Sitting Balance Ability Fair Dynamic Sitting Balance Ability Poor Standing Balance and Reactions Static Standing Balance Ability Poor Dynamic Standing Balance Ability Poor Device Used FWW M5 PT-IP Objective Assessments Start: 03/26/19 13:18 Freq: NEEDED Status: Active Protocol: Document 03/26/19 11:30 AB (Rec: 03/26/19 13:36 AB [id number]) Orientation Orientation/Cognition Level of Alertness Confusional State Orientation Name Safety Awareness Decreased Safety Awareness Memory Description Short Term Impaired,Fci Impaired Gross Range of Motion Lower Extremity ROM Assessment Within Functional Limits Strength Lower Extremity Strength Assessment Bilaterally Impaired Hip 3+/5 Knee 3+/5 M6 PT-IP Treatment Start: 03/26/19 13:18 Freq: NEEDED Status: Active Protocol: Document 03/26/19 11:30 AB (Rec: 03/26/19 13:36 AB [id number]) Physical Therapy Treatment Education Education Provided Safety M7 PT-IP Assessment and Plan Start: 03/26/19 13:18 Freq: NEEDED Status: Active Protocol: Document 03/26/19 11:30 AB (Rec: 03/26/19 13:36 AB [id number]) PT Summary Assessment and Plan Potential Rehabilitation Potential Fair Status of Condition at Evaluation Stable Summary Impairments Pain,ROM,Strength,Balance, Coordination,Sensation,Tone, Cognition,Bed Mobility, Transfers,Gait,Activity Tolerance Assessment Summary pt stated that she was receiving PT homehealth services ~ 6 months ago and was able to stand with FWW. [facility] stated that pt has been using a frida lift for transfers since last year. Dr. Lindo stated that pt's mom wants pt to be able to walk again. Assessed pt strength and mobility to determine rehab potential and possible PT interventions to improve pt's strength and mobility. Pt is willing to work with PT and may benefit from homeheatlh PT to improve strength, sitting balance/ tolerance. Pt will benefit from a restorative program/ maintenance exercise program when pt is back on [facility]. Goals Bed Mobility Goal Maximal Assistance Other Goals to improve sitting balance static: F +; dynamic: F- Days to Meet Goals 10 Frequency of Treatment Frequency Of Treatment Once a Day Treatment Plan Physical Therapy Treatment Plan Bed Mobility Training,Transfer Training,Therapeutic Exercise ,Balance Retraining,Discharge Planning,Neuromuscular Re-ed, Coordination Retraining,Manual Therapy Other Recommendations and Next Treatment bed mobility; sitting bal/karen Focus Recommendations To Nursing Amount of Assist Needed Mechanical Lift Discharge Recommendations PT Discharge Recommendations SNF Rehab
[2019-03-26 13:00] VITALS: BP 103/60; PULSE 69; RESP 20; TEMP 36.4; O2SAT 99
--- NOTE | 2019-03-26 13:04 | P.PN_ITS ---
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 Patient is resting in bed comfortably. She appears slightly anxious with a very flat affect. She reports crampy abdominal pain and mild chronic frontal headache. She has had several bowel movements with bowel prep and she has had no recurrence of bleeding. Her hemoglobin and hematocrit are stable. Her Elizabeth intertrigo and vaginal yeast infection are proving. She endorses va ginal pruritus, burning and skin irritation. She otherwise has no complaints and denies chest pain, shortness of breath, abdominal pain, nausea, vomiting, fever, chills, dysuria, diarrhea or constipation. Exam Vital Signs (past 8 hours): - 03/26/19 09:00 03/26/19 09:23 03/26/19 13:00 Temperature 97.5 F L 97.6 F Pulse Rate 64 69 Respiratory Rate 16 20 Blood Pressure 128/71 103/60 Pulse Oximetry 96 97 99 Oxygen Delivery Method Room Air Oxygen Flow Rate 0 Narrative Exam Narrative: General: Middle-aged female lying in bed and in no acute distress, appears older than stated age and chronically ill, well-developed, well-nourished, appropriately interactive HEENT: Normocephalic, atraumatic. External ears without defect. Pupils equal, round, and reactive to light. Anicteric sclerae, moist conjunctivae, and no lid lag. Oropharynx free of erythema and cobble stoning with moist mucosa. Mild le ft upward gaze. Neck: Supple with full range of motion. No jugular venous distension. No lymphadenopathy or thyromegaly. Cardiovascular: Regular rate and rhythm without murmurs, rubs, or gallops sophia reciated Pulmonary: Clear to auscultation bilaterally without crackles, wheezes, or rhonchi. Normal respiratory effort with no use of accessory muscles. Abdomen: Soft, obese, bowel sounds present, nontender, nondistended. Extremities: No clubbing or cyanosis. Bilateral lower extremity edema. Skin: Elizabeth intertrigo including breast folds, inguinal folds, and panniculus. Stage I pressure injury on gluteal fold and coccyx. Neurological: Cranial nerves grossly intact. Psychiatric: Anxious mood and flat affect. Alert and oriented to person and place. 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 1. Acute lower GI bleed, secondary to proctitis, present on admission. Resolved. -Patient presented with acute on chronic left lower quadrant abdominal pain, hematochezia, weakness, and dyspnea. -Secondary to stercoral causing proctitis that was inadequately treated. -Discontinued ibuprofen. Continued aspirin 81 mg with Protonix 20 mg twice daily due to high risk of cardiovascular disease. -Patient is hemodynamically stable without decompensation. -Initial hemoglobin 12.1 and hematocrit 37 which is at her baseline. Continued to monitor hemoglobin and hematocrit closely which was stable. -Consulted general surgery, Dr. Altamirano, who did not perform colonoscopy as patient is high risk of perforation and recommended completing course for proctitis. It would be abnormal to have significant change in colonoscopy findings in 1 month time. -Continue hydrocortisone enemas daily at bedtime for 1 month. Follow up with [facility] in 4-6 weeks. -Continue aggressive bowel regimen as an outpatient to keep stools soft and regular. 2. Severe Elizabeth intertrigo, present on admission. -Continue nystatin powder 3 times daily to affected areas. -Started and continue Diflucan 150 mg x7 days. 3. ZARA, present on admission. Resolved. -Multifactorial and secondary to use of NSAIDs, recent initiation of Bactrim, and now acute blood loss. -Initial creatinine 1.0. Baseline creatinine 0.6-0.7 mg/dL. -Continued IV fluids until adequately hydrated then discontinued. -Avoid nephrotoxic agents. Discontinued Bactrim. -Continue to monitor renal function closely. 4. Diabetes mellitus type 2, insulin using, chronic, present on admission. Stable. -Hemoglobin A1C 8.5% (01/24/2019). -Continue Lantus 65 units daily and 70 units at bedtime. -Continue ACHS blood glucose checks and high-dose correctional scale insulin. -Advanced diet from clears to heart healthy/carbohydrate consistent diet. 5. Fatty liver disease, chronic, present on admission. Active. -Elevated LFTs with AST 171, ALT 181, ALK Phos 287, and normal T.Bili 0.6. -Lipase mildly elevated at 384 and is not indicative of pancreatitis. -Patient needs to see a specialist for further biliary work-up and ERCP was previously recommended. Patient unable to do MRCP due to presence of bladder stimulator. -Patient is on a number of medications predisposing to liver injury. Underlying hepatic steatosis and triglyceridemia 6. Probable asymptomatic bacteriuria, present on admission. Stable. -Previous outpatient urine culture grew Enterobacter aerogenes > 1000,000 CFU/ml and Escherichia coli > 100,000 CFU/ml -Patient was recently started 03/21 on sulfamethoxazole-trimethoprim 800-160 twice daily for 30 days?? Patient denies any symptoms and is asymptomatic. No fever or chills. Patient had mild leukocytosis without left shift on admissi on which was reactive versus steroid induced and resolved. Prior urine cultures have shown resistance to Bactrim with Enterobacter sp. Given count of bacterial species on urine culture I suspect that patient is colonized and further empiric therapy may be harmful when considering long-term outcomes. If patient does develop UTI in future would recommend meropenem. In addition Bactrim would not be an ideal choice as it tends to predispose or exacerbate pancreatitis. Discontinued Bactrim as patient has no evidence of infection. 7. History of chronic pancreatitis. -Denies history of alcohol use. Prior workup unremarkable for gallbladder disease, however the workup is only partially completed. Underlying risk factors of hepatic steatosis and elevated triglycerides. Patient is on a number of medications that would predispose towards pancreatitis. -Patient's pain is not consistent with an acute pancreatic flare. -Lipase mildly elevated at 384 and is not indicative of pancreatitis. 8. Chronic mild macrocytic anemia now with mild acute blood loss, present on admission. Stable. -B12 normal at 383 and Folate 11.2. -Patient is hemodynamically stable without decompensation. -Initial hemoglobin 12.1 and hematocrit 37 which is at her baseline. Continued to monitor hemoglobin and hematocrit closely which was stable. 9. Peripheral edema, chronic, present on admission. Stable. -Suspected to be multi-factorial, poorly controlled diabetes, chronic dexamethasone, and debility/deconditioning. -Previous echocardiogram on 12/09/2018 was prematurely terminated due to discomfort caused by probe pressure. From that study normal LV size and EF noted. No abnormalities in the mitral or aortic valve noted. -Patient is stable from respiratory standpoint at this time. -Held furosemide 40 mg daily due to acute blood loss and potential for hemodynamic instability. 10. Oligodendroglioma with prior radiation and chemotherapy, chronic, present on admission. Presumed stable. -She is being followed by oncology, Dr. Echols, and Neurology, Dr. Rodney. -Continue dexamethasone 2 mg twice daily. 11. Seizure disorder, secondary to brain tumor, chronic, present on admission, stable -Continue seizure precautions, last suspected seizure was in December of 2018. -Continue home Keppra 500 mg daily and 750 mg daily at bedtime. -Ordered Keppra level, pending. -Ordered Ativan 2 mg IV prn seizure activity. 12. 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 Active. -Continue physical and occupational therapy. -Attempted to discuss glucocorticoid therapy with patient's oncologist Dr. Echols but was unable to reach him. Patient is on midodrine 5 mg twice daily possibly due to adrenal insufficiency? 13. Depression, chronic, present on admission. Stable. -Continue citalopram 20 mg daily. Disposition: Patient was medically stable to be discharged but awaiting placement. Patient is likely to discharge back to assisted living facility with home health versus residential facility for continued rehabilitation. Quality VTE Deep Vein Thrombosis/Pulmonary Embolism Present on Admission: No
--- NOTE | 2019-03-26 15:28 | OT.IP.EVAL ---
Surgery Performed Operation Date: 03/25/19 16:45 <No data on this case meets the specified criteria> Past Medical History (Last Reviewed 03/25/19 @ 13:08 by Connor Altamirano MD) Anxiety (Chronic) Chicken pox (Resolved ~1966) Cognitive dysfunction (Chronic) Depression (Chronic) Diabetes mellitus type 2, insulin dependent (Chronic ~2007) Fecal incontinence (Chronic) Fractures (Resolved ~2017) GERD without esophagitis (Chronic) Hearing loss (Chronic ~2016) High serum lactate (Chronic) Measles (Resolved ~1963) Oligodendroglioma (Chronic ~2011) Orthostatic hypotension (Chronic) Other and unspecified hyperlipidemia (Chronic) Ovarian cyst (Chronic ~1983) Seizure disorder (Chronic) Urinary incontinence (Chronic ~2015) Vision disorder (Chronic) Surgical History (Last Reviewed 03/25/19 @ 13:08 by Connor lAtamirano MD) Anesthesia (Resolved) H/O pelvic surgery (Inactive ~2016) History of cholecystectomy (Resolved ~1987) History of hysterectomy (Resolved ~1988) Occupational Therapy Inpatient Evaluation/Re-Eval M1 PT/OT-IP Prior Functional Status Start: 03/26/19 13:18 Freq: NEEDED Status: Active Protocol: Document 03/26/19 13:28 PJM (Rec: 03/26/19 16:35 PJM [id number]) Medical Review Prior Functional Status Medical History Reviewed Yes Diet/Fluid Consistency Regular,Thin Liquids Communication able to verbalize needs but is not consistent with providing appropriate answers to questions Mobility and Gait per [facility]: pt is a frida lift transfer and requires 2-3 person to assist with mobility. pt is w/c bound and requires assist with w/c mobility. Activities of Daily Living and IADL's Per caregiver at [facility], pt able to feed self with supervision and intermittent assist at times, pt is mod to max assist with grooming, max assist with upper body dressing, total assist with lower body dressing, total assist with toileting due to incontinence of bowel and bladder and total assist with showering in using rolling shower chair Social History Household Members caregiver,other Living Arrangements Skilled Nurse Facility Number of Floors (Floors) One Floor Number of Stairs To Enter/Railing? none Home Equipment Manual Wheelchair,Mechanical Lift,Hospital Bed Additional Social History Comment pt is [facility] care pt at [facility] M2 OT-IP Current Condition Start: 03/26/19 16:07 Freq: Status: Active Protocol: Document 03/26/19 13:28 PJM (Rec: 03/26/19 16:35 PJM [id number]) Occupational Therapy Current Condition Current Condition Evaluation Date 03/26/19 Treatment Diagnosis decr'd self care, mobility, cognition s/p brain tumor 2011 DX: GI bleed Diagnosis Onset Date 03/25/19 Post Operative Precautions Other Precautions fall risk, seizures, ceiling lift transfer at [facility] Weight Bearing Status Weight Bearing Status Weight Bear as Tolerated M3 OT- IP Subjective and Pain Start: 03/26/19 16:07 Freq: Status: Active Protocol: Document 03/26/19 13:28 PJM (Rec: 03/26/19 16:35 PJM [id number]) OT- Subjective Occupational Therapy Visit Type Type Initial Evaluation Visit Start Time 15:00 Visit Stop Time 15:28 Total Visit Minutes 28 OT Pain Assessment Pain When Pain Assessed After Treatment Pain Present Pain Present Pain Reported Location Abdomen Intensity 9 Scale Used Numeric (1 - 10) Description Aching,Acute M4 OT- IP ADL's Start: 03/26/19 16:07 Freq: Status: Active Protocol: Document 03/26/19 13:28 PJM (Rec: 03/26/19 16:35 PJM [id number]) OT [id number] Comments OT Self-Feeding Comments TANK TRUCK LOADER reports pt needs full tray set up then intermittent supervision with min spilling noted OT ADL-Grooming General Evaluation Grooming Ability Minimal Assistance Areas Needing Assistance Retrieving/Set-up of Grooming Items,Combing/Brushing Hair, Face Washing Comments OT Grooming Comments after set up in chair position in bed OT ADL-Oral Care General Eval Oral Care Ability Standby Assistance Areas of Assistance Brushing Teeth,Retrieving/Set- Up of Items Devices Oral Care Devices Toothbrush Comments Oral Care Comments after set up in bed, min cues for unfamiliar set up OT ADL-Dressing General Eval Upper Body Dressing Ability Moderate Assistance Lower Body Dressing Ability Total Assistance Comments OT Dressing Comments mod assist with gown in bed OT ADL-Toileting General Evaluation Toileting Ability Total Assistance OT ADL-Bathing Bathing Type Bathing Type Bed Bath General Evaluation Bathing Ability Total Assistance Comments OT Bathing Comments in acute care setting M5 OT- IP IADL's Start: 03/26/19 16:07 Freq: Status: Active Protocol: Document 03/26/19 13:28 PJM (Rec: 03/26/19 16:35 [facility] [id number]) OT-Instrumental Activities of Daily Living Deficits IADL Deficits Identified Deficits Home Safety Awareness Home Safety Comments pt is [facility] resident with all IADLS done by caregivers M6 OT- IP Functional Cognition Start: 03/26/19 16:07 Freq: Status: Active Protocol: Document 03/26/19 13:28 PJM (Rec: 03/26/19 16:35 [facility] [id number]) Cognitive Factors Limiting Selfcare Function Cognitive Ability Level of Alertness Alert Patient Orientation Name,Birthday,Place Attention Span Ability Capable of Focused Attention Ability to Follow Commands Able to Follow One Step Commands Memory Description Short Term Impaired Safety Awareness Underestimates Need for Assistance Problem Solving Ability Needs Assist to Identify Solutions Cognitive Comments Cognitive Assessment Comments mildly distractable, mildly slowed sped of processing noted, good effort and participation OT- Vision and Hearing OT- Hearing Assessment OT- Hearing Assessment WFL OT- Vision Assessment Visual Acuity WFL,Glasses For Reading Visual Attentiveness WFL Occular Pursuits Impaired Horizontal Visual Ramachandran WFL Vision Assessment Comments pt able to read wall clock accurately and operate TV controls independently M7 OT- IP Mobility and Balance Start: 03/26/19 16:07 Freq: Status: Active Protocol: Document 03/26/19 13:28 PJM (Rec: 03/26/19 16:35 [facility] [id number]) OT-Transfer Assessment Comments Mobility Comments see P.T. notes, 2 person assist required OT- Gait Assessment Comments Gait Ability Comments pt non ambulatory at present OT- Balance Assessment Comments Other Balance Tests/Deviations/Treatment see P.T. notes : M8 OT- IP Objective Assessments Start: 03/26/19 16:07 Freq: Status: Active Protocol: Document 03/26/19 13:28 PJM (Rec: 03/26/19 16:35 [facility] [id number]) OT Gross Range of Motion Upper Extremity Range of Motion Assessment Within Functional Limits ROM Impairments except B wrist flex/ext limited to ~30 degrees OT Strength Upper Extremity Strength Assessment Within Functional Limits Hand Associate Field Service Engineer Strength Hand Dominance Right OT- Coordination Assessment Comments Coordination Comments BUE WFL for ADLS, indep managing toothpaste cap and oral care set up OT-Muscle Tone Assessment Muscle Tone WNL Yes OT Sensation Assessment Comments Summary Comments Pt detects lt touch in BUE's M9 OT- IP Assessment and Plan Start: 03/26/19 16:07 Freq: Status: Active Protocol: Document 03/26/19 13:28 PJToyin (Rec: 03/26/19 16:35 PJM [id number]) OT Summary Assessment and Plan Potential Rehabilitation Potential Fair Summary OT Impairments Balance,Functional Cognition, Functional Mobility,Grooming, Dressing,Toileting,Bathing, Toilet Transfers,Shower Transfers Assessment Summary Low complexity OT assessment completed on this 59 yr old woman with hx of brain tumor resection in 2011, currently a [facility] care resident at [facility]. Pt admitted under OBS status with GI bleed 03/25 and note pt has had 5 admissions in last 8 weeks for abdominal pain, dehydration, ZARA< UTI, constipation, pancreatitis, colitis, proctitis. Pt presents today with cognitive deficits in orientation and short term memory but alert and follows one step commands with good effort and participation in grooming tasks in bed. BUE sensorimotor function WFL with no focal deficits noted. Vision WFL for self care tasks. Pt has significant performance deficits in all functional mobility and ceiling lift used for transfers at her care facility. Pt also has performance deficits in self feeding, grooming, dressing, bathing and toileting requiring mod to total assist. See details above. Pt appears willing to participate in therapy to increase independence in basic self care and functional transfers. Recommend trial of OT services at discharge to see if pt's functional performance can be improved. Goals Self-Feeding Goal Standby Assistance Grooming Goal Standby Assistance Dressing Goal Standby Assistance OT-Other Goals Grooming to be done in chair at sink. Dressing goal is for donning pullover shirt in chair Days to Meet Goals 5 Frequency of Treatment Frequency Of Treatment Once a Day Treatment Plan OT Treatment Plan ADL Training,Functional Mobility,Patient/Family Education,Discharge Planning Discharge Recommendations Other Discharge Recommendations return to [facility] with HH OT
--- NOTE | 2019-03-26 15:49 | CM.DPC ---
Spoke with Coby Kimbrough Director of Risk Management and advised to contact [facility]. Attempted to call agency and they seem to be having phone issues as the call has been dropped numerous times. I attempted to complete online report but don't know [employer] License number so willl need to continue to try to reach via phone. Will try again in am if unsuccessful rupert.
[2019-03-26 15:50] VITALS: BP 110/67; PULSE 69; RESP 19; TEMP 36.2; O2SAT 99
--- NOTE | 2019-03-26 15:58 | CM.SWNOTE ---
SUSTAINABLE DESIGN CONSULTANT Consult Note: This SUSTAINABLE DESIGN CONSULTANT requested this morning to take over case from RN caseload to help assist in DCP w/possible need for APS referral? Worked on this DCP throughout the day, unable to contact [facility] today. According to Dr Lindo and RN Coordinator Janet, pt has had 7 visits to our hospital in a [address] Lindo suggests that pt admits here, gets better and is sent back to [facility] only to worsen clinically..so question seems to be is [facility] the appropriate care environment for pt's termite control service representative care needs or ? [facility] has requested Dr Godwin be pt's PCP and Mom is agreeable to pt returning to [facility] for care. Placed call to Nyla at [facility] to inquire about open Medicaid termite control service representative care beds and Nyla states she has none available currently. Dr Lindo/Clinical staff have identified primary concerns as follows: -numerous readmissions -continued rectal bleeding.. steroid enema has been suggested and prescribed (?) for recurrent proctitis and it has been suspected this was not being done at [facility] -worsening skin integrity -worsened yeast infection in groin and in skin folds -Palliative care/quality of life conversation? Prognosis ? All above brought to Lyn Segal, community relations w/ the [facility], w/assist from JÚNIOR Kulkarni and RN Coordinator Janet. Lyn had planned to investigate, internally, the barriers to pt remaining at home ([facility]) and get back to this SUSTAINABLE DESIGN CONSULTANT about plans on how to move forward and meet pt's care needs at [facility] vs taking her at [facility] ? According to Dr Lindo, Dr Godwin contacted her and had explained she felt confident about meeting pt's needs at [facility] now that she was managing pt's medical care (as PCP) w/AIR BATTLE MANAGER assist which would provide close medical oversight for pt in house. Dr Lindo agreeable to pt returning to [facility] today, DC order in place. Then spoke w/Lyn and Violet at [facility] and this SUSTAINABLE DESIGN CONSULTANT asked when they could pick pt up? Dr Godwin suggested pt should come home this afternoon. Violet explained they still needed to have a staff member assess this evening and pt could return tomorrow morning approx 1130. Relayed above to Dr Lindo and to JÚNIOR Kulkarni. Cayla completing an APS referral, Coby Kimbrough in Quality aware. P: DC planned for tomorrow, back to [facility] via w/c van. This SUSTAINABLE DESIGN CONSULTANT will call mom Mackenzie to update on today's events. MERRY Rangel
[2019-03-26 20:05] VITALS: BP 112/68; PULSE 84; RESP 20; TEMP 36.1; O2SAT 97
[2019-03-26] MEDS: levETIRAcetam 250 MG TABLET 750 MG PO (21:23)
[2019-03-26] MEDS: MELATONIN 3 MG TABLET PO (21:24)
[2019-03-26] MEDS: HYDROCORTISONE 100 MG/60 ML ENEMA PR (21:27)
[2019-03-26] MEDS: INSULIN GLARGINE 100 UNIT/ML 10ML VIAL 70 UNIT SUBCUT (21:46)
--- NOTE | 2019-03-26 22:48 | PC.NURSE ---
Meet with Moose the director business development at [facility] this evening and had a extensive conversation about my professional concerns and what needs of the patient are. Discussed that my biggest concern is her skin and it not being properly cared for when she returns back to facility, discussed documentation on JUL and per nurse notes indicating that patient has been having worsening in skin issues but only medicated for them on the 3 out of 10 days. Discussed importance of q2 turns and discussed suggestion of whether [place] [facility] appropriate for patient given she is not able to facilitate for herself or make her needs known. Moose stated I am going to go back to the facility with this info and have a team meeting to see how we can better meet her needs and give her better and more appropriate health care, He also states, I would like to see her with less admissions to the hospital. Moose reported that with prev. provider many things in patient's care was dropped and not carried through, reports there is a new provider on board with patients care and he is fully invested in filling her in on our concerns and what her needs are. Moose also states I feel like she is well and ready to return back to facility and they are excited to see her come back.
[2019-03-27 02:00] VITALS: BP 119/71; PULSE 61; RESP 20; TEMP 36.4; O2SAT 98
[2019-03-27 04:35] VITALS: BP 113/62; PULSE 64; RESP 20; TEMP 36.4; O2SAT 96
[2019-03-27] MEDS: PANTOPRAZOLE 40 MG TABLET PO (06:11)
--- NOTE | 2019-03-27 06:14 | PC.NURSE ---
Patient alert to self,birthdate at this time. Thought she was in [place], but knew it was was a hospital and that she was sick. Provider states will order AC/HS insulin instead of Q6 insulin.
[2019-03-27 09:00] VITALS: BP 109/66; PULSE 74; RESP 16; TEMP 36.9; O2SAT 99
[2019-03-27 09:13] LABS: Hematocrit 33.6 % (36-46); Hemoglobin 11.4 g/dL (12.0-16.0)
[2019-03-27 09:26] LABS: Ammonia (NH3) < 9.0 umol/L (9-30)
[2019-03-27] MEDS: ASPIRIN EC 81 MG TABLET PO (10:25)
[2019-03-27] MEDS: CITALOPRAM 20 MG TABLET PO (10:26)
[2019-03-27] MEDS: ATORVASTATIN 10 MG TABLET PO (10:26)
[2019-03-27] MEDS: FLUCONAZOLE 150 MG TABLET PO (10:26)
[2019-03-27] MEDS: dexAMETHasone 1 MG TABLET 2 MG PO (10:26)
[2019-03-27] MEDS: FOLIC ACID 0.4 MG TABLET PO (10:27)
[2019-03-27] MEDS: levETIRAcetam 250 MG TABLET 500 MG PO (10:27)
[2019-03-27] MEDS: FUROSEMIDE 40 MG TABLET PO (10:27)
[2019-03-27] MEDS: MIDODRINE HCL 5 MG TABLET PO (10:30)
[2019-03-27] MEDS: MAGNESIUM OXIDE 400 MG TABLET PO (10:30)
[2019-03-27] MEDS: NYSTATIN POWDER 30 GM 1 APPLIC TOP (10:30)
[2019-03-27] MEDS: POTASSIUM CHLORIDE 20 MEQ TAB 40 MEQ PO (10:31)
[2019-03-27] MEDS: SENNOSIDES 8.6 MG TABLET 17.2 MG PO (10:31)
[2019-03-27] MEDS: POLYETHYLENE GLYCOL 3350 17 GM POWD.PACK PO (10:31)
--- NOTE | 2019-03-27 10:52 | PM.DS.1 ---
History of Present Illness History of Present Illness Date Patient Seen: 03/25/19 Chief complaint: Possible GI bleed Narrative: Written by Francisca NORIEGA: HPI is obtained via direct interview with the patient and review of records. Patient is an unreliable historian. She is awake, alert, and oriented to self only. Follows commands and able to make needs known. At this time her baseline mentation is not known. The patient is a 59-year-old female with PMH of cognitive dysfunction, oligodendraoglioma w/ prior radiation and chemotherapy, HTN, DM 2T, HLD, morbid obesity (BMI 43.2), seizure disorder, prior tobacco dependence, GERD, chronic pancreatitis, bladder stimulator in place (not a candidate for MRI/MRCP), bowel and bladder incontinence, and debility/deconditioning. Patient requires total care. She is wheelchair-bound at baseline. Patient presented to the ED via EMS transfer from [facility] on 03/24/2019 out of concern for hematochezia. Patient was noted to have heavy rectal bleeding with numerous clots and abdominal distension. According to the patient herself she has not been having any diarrhea or bloody stools. It is being communicated by the ED physician that patient was noted to have bright red clots and losing of blood out of her rectum. Her vital signs, both, at the care center (BP 125/78 HR 83) and ED (BP 144/88 HR 86) were stable. Presenting hemoglobin is 12.1 (baseline 11-12 g/dL). Associated symptoms include abdominal pain (LLQ), left flank pain, and generalized weakness. She denies dizziness, lightheadedness, nausea, and vomiting (including hematemesis). Reports shortness of breath; however, she is not dyspneic or tachypneic at rest. Denies CP and palpitations. Patient is unable to describe magnitude and quality of the pain, states it feels like shit. Reports pain to be similar to the pain she experienced 3 weeks ago. Reports experiencing frequent bruising. Patient is on ASA 81 QD (last taken 03/24) and ibuprofen 400 mg BID (last taken 03/24 0800). Patient has a complex past medical history. This is her 5th admission in the past 8 weeks for a combination of the following... Abdominal pain, dehydration, ZARA, UTI, constipation, acute on chronic pancreatitis, colitis, proctitis, and suspected GIB. Patient has had an EGD and a colonoscopy on 02/03/2019. EGD was unremarkable Colonoscopy with findings of polyps (s/p polypectomy) and proctitis. Previously was previously seen by Dr. Naveen Vaughn. At present time patient is being managed by Dr. Radha Turner, request is made for patient to be admitted to the hospitalist service. ED Presentation & Work-Up VS, 03/24 2244. BP 144/88 HR 86 RR 16 SpO2 97% on RA GCS 15 Labs, 04/03/2019 2245 WBC 11.4 HGB 12.[address]:T 193 PT 10.6 INR 0.9 aPTT 25 Na 136 K 4.8 Cl 102 Ca 9.7 Alb 3.6 GLU 335 CO2 26 BUN 29 Cr 1.0 BUN:Cr 29 AST 171 ALT 181 ALK Phos 287 T.Bili 0.6 No abdominal imaging was done. Patient was given 80 mg of IV Protonix in the ED. Discharge Providers Provider Date of admission: 03/25/19 00:36 Discharge Date: 03/27/19 Primary care physician: Naveen Vaughn MD Consults: 03/25/19 00:46 Consult to General Surgery Routine Comment: Consulting Provider: Connor Altamirano Reason for consultation: Brisk GI bleed Has provider been notified: Yes 03/26/19 02:12 Consult to [employer] [facility] - [employer] [employer] Routine Comment: worsening rash on serial admits from SNF [facility] Consult: APS/CPS Crisis Referral 03/26/19 10:21 Consult to Physical Therapy Evaluate & Treat Comment: Please see prior to Pt's discharge today Physician Instructions: Evaluate and Treat 03/26/19 10:22 Consult to Occupational Therapy Evaluate & Treat Comment: Please see Pt prior to Pt's discharge today Physician Instructions: Evaluate and treat Discharge provider: Nury Lindo DO Summary Hospital Course Discharge Diagnosis: 1. Acute lower GI bleed, secondary to proctitis, present on admission. Resolved. 2. 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 Active. 3. Severe Elizabeth intertrigo, present on admission. Resolving. 4. ZARA, present on admission. Resolved. 5. Probable asymptomatic bacteriuria, present on admission. Stable. 6. Diabetes mellitus type 2, insulin using, chronic, present on admission. Stable. 7. Fatty liver disease, chronic, present on admission. Stable. 8. History of chronic pancreatitis. 9. Chronic mild macrocytic anemia now with mild acute blood loss, present on admission. Stable. 10. Peripheral edema, chronic, present on admission. Stable. 11. Oligodendroglioma with prior radiation and chemotherapy, chronic, present on admission. Presumed stable. 12. Seizure disorder, secondary to brain tumor, chronic, present on admission. Stable. 13. Depression, chronic, present on admission. Stable. Hospital Course: Ritika Claudio is a 59-year-old female with a past medical history significant for oligodendraoglioma with prior radiation and chemotherapy on dexamethasone with subsequent cognitive impairment and seizure disorder, hypertension, hyperlipidemia, diabetes mellitus type 2, insulin using, morbid obesity (BMI 43.2), prior tobacco dependence, GERD, chronic pancreatitis, bladder stimulator in place (not a candidate for MRI/MRCP), bowel and bladder incontinence, debility, deconditioning and is wheelchair-bound at baseline requiring total care who presented to the ED via EMS from [facility] for hematochezia. 1. Acute lower GI bleed, secondary to proctitis, present on admission. Resolved. -Patient presented with acute on chronic left lower quadrant abdominal pain, hematochezia, weakness, and dyspnea. -Secondary to stercoral causing proctitis that was inadequately treated. -Discontinued ibuprofen. Continued aspirin 81 mg with Protonix 20 mg twice daily due to high risk of cardiovascular disease. -Patient is hemodynamically stable. Patient has had no recurrence of bleeding since admission. -Initial hemoglobin 12.1 and hematocrit 37 which is at her baseline. Continued to monitor hemoglobin and hematocrit closely which was stable. -Consulted general surgery, Dr. Altamirano, who did not perform colonoscopy as patient is high risk of perforation and recommended completing course for proctitis. It would be abnormal to have significant change in colonoscopy findings in 1 month time. -Continued hydrocortisone enemas daily at bedtime for 1 month. Follow up with [facility] in 4-6 weeks. -Recommend continued aggressive bowel regimen as an outpatient to keep stools soft and regular. 2. 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 Active. -Continue physical and occupational therapy. -Attempted to discuss glucocorticoid therapy with patient's oncologist Dr. Echols but was unable to reach him. Patient is on midodrine 5 mg twice daily possibly due to adrenal insufficiency? Consider endocrinology evaluation and attempt at titrating off glucocorticoid therapy. 3. Severe Elizabeth intertrigo, present on admission. Resolving. -Continued nystatin powder 3 times daily to affected areas. -Started and continued Diflucan 150 mg x7 days. 4. ZARA, present on admission. Resolved. -Multifactorial and secondary to use of NSAIDs, recent initiation of Bactrim, and now acute blood loss. -Initial creatinine 1.0. Baseline creatinine 0.6-0.7 mg/dL. Creatinine now 0.6. -Continued IV fluids until adequately hydrated then discontinued. -Avoided nephrotoxic agents. Discontinued Bactrim. -Continued to monitor renal function closely. 5. Probable asymptomatic bacteriuria, present on admission. Stable. -Previous outpatient urine culture grew Enterobacter aerogenes > 1000,000 CFU/ml and Escherichia coli > 100,000 CFU/ml -Patient was recently started 03/21 on sulfamethoxazole-trimethoprim 800-160 twice daily for 30 days?? Patient denies any symptoms and is asymptomatic. No fever or chills. Patient had mild leukocytosis without left shift on admission which was reactive versus steroid induced and resolved. Prior urine cultures have shown resistance to Bactrim with Enterobacter sp. Given count of bacterial species on urine culture I suspect that patient is colonized and further empiric therapy may be harmful when considering long-term outcomes. If patient does develop UTI in future would recommend meropenem. In addition Bactrim would not be an ideal choice as it tends to predispose or exacerbate pancreatitis. Discontinued Bactrim as patient has no evidence of infection. 6. Diabetes mellitus type 2, insulin using, chronic, present on admission. Stable. -Hemoglobin A1C 8.5% (01/24/2019). -Continued Lantus 65 units daily and 70 units at bedtime. -Continued [facility] blood glucose checks and high-dose correctional scale insulin. -Advanced diet from clears to heart healthy/carbohydrate consistent diet. 7. Fatty liver disease, chronic, present on admission. Stable. -Elevated LFTs with AST 171, ALT 181, ALK Phos 287, and normal T.Bili 0.6. -Lipase mildly elevated at 384 and is not indicative of pancreatitis. -Patient needs to see a specialist for further biliary work-up and ERCP was previously recommended. Patient unable to do MRCP due to presence of bladder stimulator. -Patient is on a number of medications predisposing to liver injury. Underlying hepatic steatosis and triglyceridemia. 8. History of chronic pancreatitis. -Denies history of alcohol use. Prior workup unremarkable for gallbladder disease, however the workup is only partially completed. Underlying risk factors of hepatic steatosis and elevated triglycerides. Patient is on a number of medications that would predispose towards pancreatitis. -Patient's pain is not consistent with an acute pancreatic flare. -Lipase mildly elevated at 384 and is not indicative of pancreatitis. 9. Chronic mild macrocytic anemia now with mild acute blood loss, present on admission. Stable. -B12 normal at 383 and Folate 11.2. -Patient is hemodynamically stable without overt signs of bleeding. -Initial hemoglobin 12.1 and hematocrit 37 which is at her baseline. Continued to monitor hemoglobin and hematocrit closely which was stable. 10. Peripheral edema, chronic, present on admission. Stable. -Suspected to be multi-factorial, poorly controlled diabetes, chronic dexamethasone, and debility/deconditioning. -Previous echocardiogram on 12/09/2018 was prematurely terminated due to discomfort caused by probe pressure. From that study normal LV size and EF noted. No abnormalities in the mitral or aortic valve noted. -Patient is stable from respiratory standpoint at this time. -Held furosemide 40 mg daily due to acute blood loss and potential for hemodynamic instability. 11. Oligodendroglioma with prior radiation and chemotherapy, chronic, present on admission. Presumed stable. -She is being followed by oncology, Dr. Echols, and Neurology, Dr. Rodney. -Continued dexamethasone 2 mg twice daily. 12. Seizure disorder, secondary to brain tumor, chronic, present on admission. Stable. -Continued seizure precautions, last suspected seizure was in December of 2018. -Continued home Keppra 500 mg daily and 750 mg daily at bedtime. -Ordered Keppra level, pending. -Ordered Ativan 2 mg IV as needed for seizure activity. 13. Depression, chronic, present on admission. Stable. -Continued citalopram 20 mg daily. Exam Vital Signs (past 8 hours): - 03/27/19 04:35 03/27/19 09:00 Temperature 97.5 F L 98.4 F Pulse Rate 64 74 Respiratory Rate 20 16 Blood Pressure 113/62 109/66 Pulse Oximetry 96 99 Oxygen Delivery Method Room Air Oxygen Flow Rate 0 Narrative Exam Narrative: General: Middle-aged female lying in bed and in no acute distress, appears older than stated age and chronically ill, well-developed, well-nourished, moderate cognitive impairment but otherwise appropriately interactive. HEENT: Normocephalic, atraumatic. External ears without defect. Pupils equal, round, and reactive to light. Anicteric sclerae, moist conjunctivae, and no lid lag. Oropharynx free of erythema and cobble stoning with moist mucosa. Mild left upward gaze. Neck: Supple with full range of motion. No jugular venous distension. No lymphadenopathy or thyromegaly. Cardiovascular: Regular rate and rhythm without murmurs, rubs, or gallops appreciated Pulmonary: Clear to auscultation bilaterally without crackles, wheezes, or rhonchi. Normal respiratory effort with no use of accessory muscles. Abdomen: Soft, obese, bowel sounds present, nontender, nondistended. Extremities: No clubbing or cyanosis. Mild bilateral lower extremity edema to pretibial area bilaterally. Skin: Elizabeth intertrigo including breast folds, inguinal folds, and panniculus. Stage I pressure injury blanchable on gluteal fold and coccyx. Neurological: Cranial nerves grossly intact. Psychiatric: Anxious mood and flat affect. Alert and oriented to person and place. Moderate cognitive impairment with short-term memory recall deficit. Objective Labs Result Diagrams: 03/27/19 08:55 03/26/19 06:40 Labs: Laboratory Results - last 24 hr 03/27/19 03/27/19 08:55 08:55 Hgb 11.4 L Hct 33.6 L Ammonia < 9.0 L Discharge Plan Discharge Plan Patient Disposition: Assisted Living Other facility: [facility] Under care of provider: Dr. Godwin Transportation: Facility vehicle Discharge orders & Medications Discharge Orders: Discharge (Order); Ordered 03/27/19 Ordered By: Nury Lindo Prescriptions: New fluconazole [Diflucan] 150 mg Tablet 150 mg PO DAILY Qty: 5 RF: 0 hydrocortisone 100 mg/60 mL Enema 100 mg ID BEDTIME 30 Days Qty: 1680 RF: 0 Continued ondansetron HCl 4 mg tablet 4 mg PO Q6H PRN (Reason: Nausea And Vomiting) Qty: 30 RF: 0 (DME) Easy Touch Pen Needle 30 gauge x 5/16 needle See Dose Instructions .ROUTE .MEDSUPPLY Qty: 100 RF: 1 meclizine 25 mg tablet 25 mg PO Q6H PRN (Reason: dizziness or vertigo) Qty: 90 RF: 3 acetaminophen 325 mg tablet 650 mg PO Q4H PRN (Reason: Fever Or Pain) Qty: 90 RF: 0 (DME) lancets [TRUEplus Lancets] 30 gauge misc See Rx Instructions .ROUTE .MEDSUPPLY Qty: 100 RF: 3 hydrocortisone acetate 1 % cream 1 applic TOPICAL Q8H PRN (Reason: Rash) Qty: 57 RF: 0 midodrine 5 mg tablet 5 mg PO BID Qty: 30 RF: 8 dexamethasone 2 mg tablet 2 mg PO BID Qty: 60 RF: 11 citalopram 20 mg tablet 20 mg PO DAILY Qty: 90 RF: 1 omega 3-sxt-azh-fish oil [Fish Oil] 1,000 mg (120 mg-180 mg) capsule 1 cap PO DAILY Qty: 30 RF: 8 cholecalciferol (vitamin D3) 1,000 unit capsule 1,000 unit PO DAILY Qty: 90 RF: 3 Basaglar KwikPen U-100 Insulin 100 unit/mL (3 mL) insulin pen 70 unit subcut QPM Qty: 15 RF: 11 aspirin 81 mg tablet,delayed release (DR/EC) 81 mg PO DAILY Qty: 30 RF: 11 folic acid 400 mcg tablet 0.4 mg PO QPM Qty: 90 RF: 1 levetiracetam 250 mg tablet 500 mg PO DAILY Qty: 60 RF: 8 levetiracetam 250 mg tablet 750 mg PO BEDTIME Qty: 90 RF: 8 atorvastatin 10 mg tablet 10 mg PO DAILY Qty: 30 RF: 12 Basaglar KwikPen U-100 Insulin 100 unit/mL (3 mL) insulin pen 65 unit subcut DAILY Qty: 15 RF: 12 potassium chloride 20 mEq tablet,ER particles/crystals 40 meq PO BID Qty: 180 RF: 3 omeprazole 20 mg capsule,delayed release(DR/EC) 20 mg PO BID Qty: 180 RF: 1 magnesium oxide 400 mg (241.3 mg magnesium) tablet 400 mg PO BID Qty: 60 RF: 5 melatonin 3 mg tablet 6 mg PO BEDTIME Qty: 180 RF: 0 polyethylene glycol 3350 17 gram/dose powder 17 gram PO DAILY Qty: 510 RF: 3 nystatin 100,000 unit/gram powder 1 applic topical PRN PRN (Reason: Rash) Qty: 30 RF: 3 Glucagon Emergency Kit (human) 1 mg recon soln See Rx Instructions .ROUTE .COMPLEX RF: 0 Robitussin Cough-Chest Gil DM 5-100 mg/5 mL Liquid 5 ml PO Q4H PRN (Reason: Cough) Qty: 0 RF: 0 furosemide 40 mg tablet 40 mg PO DAILY RF: 0 sennosides 8.6 mg Tablet 17.2 mg PO BID RF: 0 insulin lispro [Humalog U-100 Insulin] 100 unit/mL Solution 1 sliding scale dose SUBCUT USEASDIRECTD RF: 0 Discontinued loperamide [Imodium A-D] 2 mg capsule 2 mg PO Q2-4H PRN (Reason: loose stool) Qty: 60 RF: 0 ibuprofen 400 mg tablet 400 mg PO BID Qty: 60 RF: 3 sulfamethoxazole-trimethoprim 800-160 mg Tablet 1 tab PO BID 30 Days Qty: 60 RF: 0 oxycodone-acetaminophen 5-325 mg tablet 1 tab PO BEDTIME PRN (Reason: moderate pain/discomfort) Qty: 30 RF: 0 Follow up/Referrals: Naveen Vaughn MD [Primary Care Provider] - Diet/Activity/Treatments Diet: Carb-consistent/Diabetic, Low-fat, Low-sodium and Low-cholesterol Activity: Continue aggressive rehabilitation with physical and occupational therapy. [facility] Rehab type: Physical therapy and Occupational therapy Visit Report/Discharge Packet Instructions: Hydrocortisone Rectal Visit Report Forms: Patient Portal/API, Stroke Signs & Symptoms Discharge Data Primary Care Provider: Naveen Vaughn Attending Provider: Francisca Zuñiga Admit Date/Time: 03/25/19 00:36 Discharges patient from system. Discharge Date/Time: 03/27/19 11:40 Quality VTE Deep Vein Thrombosis/Pulmonary Embolism Present on Admission: No
[2019-03-27] MEDS: INSULIN GLARGINE 100 UNIT/ML 3ML PEN 65 UNIT SUBCUT (10:57)
--- NOTE | 2019-03-27 11:05 | CM.DPC ---
Because we are mandated to report concerns, I spoke to [facility] at [phone] due to frequent re-admission (7x in 3 months) and declining pt. concerns (Dr. Lindo reports worsening skin breakdown and the worst yeast infection I have ever seen.
--- NOTE | 2019-03-27 11:48 | PC.NURSE ---
(Late Note) 1030 Patient resting in bed, denies shortness of breath or chest pain. Patient is alert, oriented to name and date. Does not know today's date, but understands she is in a hospital because I'm sick. Reports abdominal pain at rest, abdomen is soft, bowel sounds active, patient is passing flatulence. Patient confirms burning while urinating and itching in hermelindo area. Patient has redness surrounding hermelindo area. Patient is voiding in brief, no blood noted in brief with stool. Various bruising along arms and lower extremities noted with generalized edema bilaterally. Patient repositioned in bed. Call light in reach. Medications administered. Patient transferred to facility wheelchair via frida lift. Patient tolerated transfer.
--- NOTE | 2019-03-27 12:10 | CM.DPC ---
DCP Cont: Faxed signed med list and discharge summary to [facility] at fax # [phone]. Fax confirmation scanned in. Ines Mcneil, [facility] Swabber
--- NOTE | 2019-03-27 14:52 | CM.DPNOTE ---
DC Note: Spoke w/ Violet at [facility] this morning, pt okay to come back to their facility today and transport available at 1130. Updated Dr Lindo. Completed DC ppk, signed med list and DC summary faxed to [facility] by ESME Chacon. Received call from Dr Godwin this morning, she addressed the following items w/this ENVIRONMENTAL DESIGNER based on information brought to her from Lyn Segal, community relations and Dr Lindo: From this ENVIRONMENTAL DESIGNER's note dated 19: -numerous readmissions Dr Godwin hopeful her in house attention w/assist from TIRE GROOVER at [facility] will help address this concern, pt will be visited at least x2 weekly by medical providers -continued rectal bleeding.. steroid enema has been suggested and prescribed (?) for recurrent proctitis and it has been suspected this was not being done at [facility] There was not an order sent by former PCP for steroid enema -worsening skin integrity No comment -worsened yeast infection in groin and in skin folds Pt with diabetes, incontinence, steroid use, making it difficult to eradicate yeast, Dr Godwin understands concerns and attempting to address -Palliative care/quality of life conversation? Prognosis ? Dr Godwin feels strongly pt needs a chance w/more medical oversight at [facility] before reviewing Palliative care/hospice approach. Then placed call to pt's mom Mackenzie. Reviewed DCP and Mackenzie agreeable to DC back to [facility] today. Continued conversation and Mackenzie confirmed that she agreed to Dr Godwin being pt's PCP/in house management. Mackenzie hopeful her dtr will improve but still concerned pt continues to have bouts of bleeding. Discussed goals of care w/ mom Mackenzie and when this ENVIRONMENTAL DESIGNER asks if visiting the hospital this may times in the last 3 months is an acceptable quality of life for pt? She responds no, I don't think so. This ENVIRONMENTAL DESIGNER strongly suggested to Mackenzie that she consider discussing a Palliative care or Hospice plan of care w/ Dr Godwin if pt continues to readmit frequently to the hospital and Mackenzie agreeable. Mackenzie seemed appreciative of the conversation and was encouraged to contact ENVIRONMENTAL DESIGNER team w/questions/concerns when pt admitted. P: DC back to [facility] today via w/c tiesha. APS report made by JÚNIOR Kimbrough. MERRY Rangel
[2019-03-28 09:01] LABS: Levetiracetam Keppra 11.8 mcg/mL (12.0-46.0)
--- NOTE | 2019-04-01 10:40 | CM.DPC ---
DCP Cont: Faxed clinicals for review to [facility] at fax # [phone]. Fax confirmation scanned in. Ines Mcneil, [facility] Checkman
--- NOTE | 2019-04-08 11:58 | PC.NURSE ---
Late entry: NS stopped 03/25 1300 Pantoprazole stopped 03/25 1835
== END 2019-03-27 11:40 ==
LOC: ED 23:57 → AC 03-25 00:37
PROVIDERS: Internal Medicine; Nurse Practitioner Adult Health; Admitting Provider Nurse Practitioner Gerontology; Emergency Provider Emergency Medicine; PCP Internal Medicine; Visit Provider Nurse Practitioner Gerontology
DX: K62.5 Hemorrhage of anus and rectum (principal); K62.89 Other specified diseases of anus and rectum; C71.9 Malignant neoplasm of brain, unspecified; E11.9 Type 2 diabetes mellitus without complications; Z79.4 Long term (current) use of insulin; G40.909 Epilepsy, unspecified, not intractable, without status epilepticus; G72.9 Myopathy, unspecified; E24.9 Cushing's syndrome, unspecified; B37.2 Candidiasis of skin and nail; D53.9 Nutritional anemia, unspecified; F32.9 Major depressive disorder, single episode, unspecified; Z87.891 Personal history of nicotine dependence
CPT/HCPCS: 36415; 36592; 74176; 74177; 80048; 80053; 80177; 82140; 82607; 82746; 82962; 83605; 83690; 83735; 83880; 84145; 85014; 85018; 85025; 85027; 85610; 85730; 86140; 86850; 86900; 86901; 93005; 94762; 96365; 96366; 96367; 96372; 96375; 97161; 97165; 97535; 99219; 99283; 99284; G0378; C9113; J1100; J1953

== ENCOUNTER → 2019-03-31 08:01 | Outpatient (ROUT) | payer MEDICARE, MEDICAID, SELFPAY ==
[2019-03-25 01:33] VITALS: BMI 43.2
[2019-03-31 08:13] LABS: Ammonia (NH3) < 9.0 umol/L (9-30)
[2019-03-31 08:58] LABS: Add Manual Diff / Slide Review NO; Basophils Absolute Auto 0 /uL (0-100); Basophils Percent Auto 0.3 % (0-2); Eosinophils Absolute Auto 0 /uL (0-450); Eosinophils Percent Auto 0.1 % (2-4); Hematocrit 31.1 % (36-46); Hemoglobin 10.9 g/dL (12.0-16.0); Lymphocytes Absolute Auto 1500 /uL (1100-4500); Lymphocytes Percent Auto 14.5 % (25-40); Mean Corpuscular HGB Conc 35.1 % (30-36); Mean Corpuscular Hemoglobin 35.3 PG (26-34); Mean Corpuscular Volume 100.6 fL (80-100); Monocytes Absolute Auto 700 /uL (0-900); Neutrophils Absolute Auto 8300 /uL (1500-7000); Neutrophils Percent Auto 78.1 % (50-75); Platelet Count 205 X10^3/uL (150-400); Red Blood Cell Count 3.09 X10^6/uL (4.0-5.2); Red Cell Distribution Width 15.9 % (11.6-14.8); White Blood Cell Count 10.6 X10^3/uL (4.5-11.0)
[2019-03-31 09:13] LABS: HEMOLYSIS < 15 (0-50); Iron 70 ug/dL (37-170)
[2019-03-31 09:23] LABS: Percent Iron Saturation 24 % (15-50); Total Iron Binding Capacity 288 ug/dL (265-497); Transferrin 236 mg/dL (206-381)
[2019-03-31 10:18] LABS: Folate 11.4 ng/mL (2.76-20.0); Vitamin B12 441 pg/mL (239-931)
[2019-04-05 08:29] LABS: Hepatitis A Antibody IgM NONREACTIVE; Hepatitis B Core Antibody IgM NONREACTIVE; Hepatitis B Surface Antigen NONREACTIVE; Hepatitis C Antibody NONREACTIVE
== END ==
PROVIDERS: PCP Internal Medicine; Visit Provider Internal Medicine
DX: R94.5 Abnormal results of liver function studies (principal); R41.82 Altered mental status, unspecified; R60.1 Generalized edema
CPT/HCPCS: 36415; 80074; 82140; 82607; 82728; 82746; 83540; 83550; 85025

== ENCOUNTER 2019-04-06 13:50 | Emergency (ER) | payer MEDICARE, MEDICAID, SELFPAY ==
[2019-03-25 01:33] VITALS: BMI 43.2
[2019-04-06] VITALS (22 sets, daily range): BP systolic 72–130; BP diastolic 43–114; PULSE 113–124; RESP 15–26; TEMP 37.1–38.2; O2SAT 94–99
--- NOTE | 2019-04-06 13:53 | DI.CT.S_ITS ---
PROCEDURE: CT HEAD/BRAIN WO CON INDICATIONS: AMS TECHNIQUE: Noncontrast 4.5 mm thick angled axial sections acquired from the foramen magnum to the vertex, with coronal and sagittal reformats. For radiation dose reduction, the following was used: automated exposure control, adjustment of mA and/or kV according to patient size. COMPARISON: [facility], MR, MR BRAIN WITH/WITHOUT CONTRAST, 03/31/2019, 10:28. [facility], CT, CT HEAD/BRAIN WO CON, 12/08/2018, 20:39. [facility], CT, CT HEAD/BRAIN WO CON, 06/06/2018, 18:51. FINDINGS: Image quality: Excellent. CSF spaces: Basal cisterns are patent. No extra-axial fluid collections. Ventricles are normal in size and shape. Brain: No midline shift. No intracranial masses or hemorrhage. Sainz-white matter interface is extensively abnormal in the frontal regions bilaterally, extending into the parietal regions bilaterally greater on the left than the right and there are bands of calcification extending through this area to the right of midline. Reportedly this is related to radiation therapy. Skull and face: Calvarium and visualized facial bones are intact, without suspicious lesions. Sinuses: Visualized sinuses and mastoids are clear. IMPRESSION: No warp changer time. Apparent gliosis related to prior radiation therapy stable over time. Source of new altered mental status is not seen Dictated by: Amadou Garcia M.D. on 04/06/2019 at 14:25 Approved by: Amadou Garcia M.D. on 04/06/2019 at 14:27
--- NOTE | 2019-04-06 13:55 | DI.RAD.S_ITS ---
PROCEDURE: XR CHEST 1V INDICATIONS: sepsis work up eval fo PNA TECHNIQUE: One view of the chest was acquired. COMPARISON: [facility], CR, XR CHEST 1V, 03/18/2019, 3:14. FINDINGS: Surgical changes and devices: None. Lungs and pleura: Low lung volumes with scattered subsegmental atelectasis/scarring. No pleural effusions or pneumothorax. Mediastinum: Mediastinal contours appear normal. Heart size is normal. Bones and chest wall: No suspicious bony lesions. Overlying soft tissues appear unremarkable. IMPRESSION: Low lung volumes with scattered subsegmental atelectasis/scarring. Dictated by: Monico Galaviz M.D. on 04/06/2019 at 14:29 Approved by: Monico Galaviz M.D. on 04/06/2019 at 15:07
[2019-04-06 14:16] LABS: Prothrombin Time 11.4 SECONDS (10.1-12.7)
[2019-04-06 14:19] LABS: Basophils Absolute Auto 100 /uL (0-100); Eosinophils Absolute Auto 100 /uL (0-450); Eosinophils Percent Auto 0.7 % (2-4); Hematocrit 37.9 % (36-46); Hemoglobin 12.2 g/dL (12.0-16.0); Lymphocytes Absolute Auto 2800 /uL (1100-4500); Lymphocytes Percent Auto 23.8 % (25-40); Mean Corpuscular HGB Conc 32.2 % (30-36); Mean Corpuscular Hemoglobin 33.1 PG (26-34); Mean Corpuscular Volume 102.9 fL (80-100); Monocytes Absolute Auto 1000 /uL (0-900); Monocytes Percent Auto 8.4 % (3-14); Neutrophils Absolute Auto 7900 /uL (1500-7000); Neutrophils Percent Auto 66.1 % (50-75); PTT Partial Thromboplastin Tim 25 SECONDS (26.4-36.2); Platelet Count 215 X10^3/uL (150-400); Red Blood Cell Count 3.68 X10^6/uL (4.0-5.2); Red Cell Distribution Width 16.5 % (11.6-14.8); White Blood Cell Count 11.9 X10^3/uL (4.5-11.0)
[2019-04-06 14:22] LABS: Acetaminophen < 10 ug/mL (10-30); Add Manual Diff / Slide Review SLIDE REVIEW; Alanine Aminotransferase 159 IU/L (<35); Albumin 3.3 g/dL (3.5-5.0); Albumin Globulin Ratio 1.4 (1.0-2.8); Alkaline Phosphatase 306 U/L (38-126); Aspartate Aminotransferase 124 IU/L (14-36); Bilirubin Total 0.9 mg/dL (0.2-1.3); Blood Urea Nitrogen 29 mg/dL (7-17); Calcium 10.4 mg/dL (8.4-10.2); Carbon Dioxide 26 mmol/L (22-32); Chloride 114 mmol/L (98-107); Estimated Glomerular Filt Rate 56.9 mL/min (>60); Ethanol (ETOH) < 10 mg/dL; Globulin 2.3 g/dL (1.7-4.1); Glucose 157 mg/dL (70-100); HEMOLYSIS < 15 (0-50); Lipase 651 U/L (23-300); Potassium 3.5 mmol/L (3.4-5.1); Sodium 148 mmol/L (137-145); Total Protein 5.6 g/dL (6.3-8.2)
[2019-04-06 14:42] LABS: Macrocytosis 1+; Platelet Estimate Adequate on smear
[2019-04-06] MEDS: SODIUM CHLORIDE 0.9% 1,000 ML 125 ML IV (14:50)
[2019-04-06 14:53] LABS: Lactate (Lactic Acid) 3.8 mmol/L (0.7-2.1)
[2019-04-06 14:54] LABS: Magnesium 1.8 mg/dL (1.6-2.3); Phosphorous 3.1 mg/dL (2.5-4.5); Salicylate < 1.0 mg/dL (<20)
--- NOTE | 2019-04-06 14:54 | ED.GENADULT ---
HPI - General Adult General Chief complaint: Unresponsive Stated complaint: decreased responsiveness. Time Seen by Provider: 04/06/19 13:51 Source: EMS Mode of arrival: EMS Limitations: altered mental status History of Present Illness HPI narrative: 59-year-old female with multiple medical problems to include insulin-dependent diabetes and recently a admission to the hospital for with thought was a GI bleed sent over from her nursing facility for a concern for sepsis. I did receive a call from the provider at the nursing facility who stated that the patient has been more altered than normal. She has not been hypotensive at the nursing facility. They were concerned about it urinary tract infection which apparently she has had in the past. She was febrile to 101 at the nursing facility. Arrived by EMS. Related Data Home Medications Medication Instructions Recorded Confirmed furosemide 40 mg PO DAILY 02/02/19 04/06/19 Glucagon Emergency Kit (human) See Rx Instructions .ROUTE .COMPLEX 03/20/19 04/06/19 insulin lispro [Humalog U-100 1 sliding scale dose SUBCUT QID 03/25/19 04/06/19 Insulin] sennosides 17.2 mg PO BID 03/25/19 04/06/19 Basaglar KwikPen U-100 Insulin 70 unit SUBCUT QAM 04/06/19 04/06/19 Robitussin Dm 5 ml PO Q4H PRN 04/06/19 04/06/19 atorvastatin 10 mg PO BEDTIME 04/06/19 04/06/19 dexamethasone 2 mg PO [id number] 04/06/19 04/06/19 folic acid 0.4 mg PO BEDTIME 04/06/19 04/06/19 insulin glargine [Basaglar KwikPen 65 unit SUBCUT BEDTIME 04/06/19 04/06/19 U-100 Insulin] insulin lispro [Humalog KwikPen 20 unit SUBCUT QPM 04/06/19 04/06/19 Insulin] levetiracetam 500 mg PO QAM 04/06/19 04/06/19 Previous Rx's Medication Instructions Recorded ondansetron HCl 4 mg tablet 4 mg PO Q6H PRN #30 tab 05/29/18 pen needle, diabetic 30 gauge x #100 each 11/20/1809/18 acetaminophen 325 mg tablet 650 mg PO Q4H PRN #90 tab 12/12/18 meclizine 25 mg tablet 25 mg PO Q6H PRN #90 tab 12/12/18 lancets 30 gauge #100 each 02/02/19 aspirin 81 mg tablet,delayed 81 mg PO DAILY #30 tab 03/02/19 release cholecalciferol (vitamin D3) 1,000 1,000 unit PO DAILY #90 cap 03/02/19 unit capsule citalopram 20 mg tablet 20 mg PO DAILY #90 tab 03/02/19 hydrocortisone acetate 1 % topical 1 applic TOPICAL Q8H PRN #57 gram 03/02/19 cream levetiracetam 250 mg tablet 750 mg PO BEDTIME #90 tab 03/02/19 magnesium oxide 400 mg (241.3 mg 400 mg PO BID #60 tab 03/02/19 magnesium) tablet melatonin 3 mg tablet 6 mg PO BEDTIME #180 tab 03/02/19 midodrine 5 mg tablet 5 mg PO BID #30 tab 03/02/19 omega [id number] oil 1,000 mg 1 cap PO DAILY #30 cap 03/02/19 (120 mg-180 mg) capsule omeprazole 20 mg capsule,delayed 20 mg PO BID #180 cap 03/02/19 release potassium chloride 20 mEq 40 meq PO BID #180 tab 03/02/19 tablet,extended release(part/cryst) polyethylene glycol 3350 17 17 gram PO DAILY #510 gram 03/19/19 gram/dose oral powder nystatin 100,000 unit/gram topical 1 applic TOPICAL PRN PRN #30 gram 03/23/19 powder fluconazole [Diflucan] 150 mg PO DAILY #5 tab 03/27/19 hydrocortisone 100 mg AK BEDTIME 30 Days #1680 ml 03/27/19 Allergies Allergy/AdvReac Type Severity Reaction Status Date / Time adhesive tape Allergy Unknown Verified 01/14/19 20:39 Penicillins Allergy Unknown Verified 01/14/19 20:39 silicone Allergy Unknown Verified 01/14/19 20:39 zonisamide Allergy Unknown Verified 01/14/19 20:39 escitalopram AdvReac Unknown Verified 01/14/19 20:39 lamotrigine AdvReac Unknown Verified 01/14/19 20:39 Review of Systems Review of Systems ROS Unobtainable: Unobtainable due to mental status/LOC Patient History Medical History Anxiety (Chronic) Chicken pox (Resolved ~1966) Cognitive dysfunction (Chronic) Depression (Chronic) Diabetes mellitus type 2, insulin dependent (Chronic ~2007) Fecal incontinence (Chronic) Fractures (Resolved ~2017) GERD without esophagitis (Chronic) Hearing loss (Chronic ~2016) High serum lactate (Chronic) Measles (Resolved ~1963) Oligodendroglioma (Chronic ~2011) Orthostatic hypotension (Chronic) Other and unspecified hyperlipidemia (Chronic) Ovarian cyst (Chronic ~1983) Seizure disorder (Chronic) Urinary incontinence (Chronic ~2015) Vision disorder (Chronic) Surgical History Anesthesia (Resolved) H/O pelvic surgery (Inactive ~2016) History of cholecystectomy (Resolved ~1987) History of hysterectomy (Resolved ~1988) Social History marital status: number of children: 3 household members: caregiver and other lives independently: Yes caregiver/support person: Yes housing: assisted living facility pets and animals: No education level: high school occupational status: disabled Previous occupational history: [employer] in [place] duncan/pentecostal: None leisure activities: games (Invodo) and other (Movies, TV) Smoking Status: Former smoker Tobacco: How many years used: 2 Smokeless tobacco user: other (Cigarettes) quit status: quit date established (2010) second hand exposure: No alcohol intake: never substance use type: does not use alcohol intake frequency: holidays/special occasions only Substance Use Type: does not use Exam Initial Vital Signs Initial Vital Signs: Vital Signs Temperature 100.7 F H 04/06/19 13:55 Respiratory Rate 26 H 04/06/19 13:55 Blood Pressure 97/60 04/06/19 13:55 Pulse Oximetry 98 04/06/19 13:55 Const General: comfortable Orientation: confused Limitations: altered mental status HENMT Head: normal to inspection and normocephalic Eyes Pupils: PERRL Chest Chest: No crepitus Resp Effort & Inspection: normal respiratory effort Auscultation: clear to auscultation bilaterally Cardio Rate: tachycardic Rhythm: regular rhythm Pulses: radial pulses present GI Inspection: non-distended Palpation: soft and tender (Generalized tenderness) Skin Other: Decubitus ulcers sacral area minimal surrounding erythema Neuro General: awake Cognition: abnormal cognition Extrem General: normal to inspection, capillary refill normal and No edema Psych Appearance: grossly normal and well kempt Scores GCS Gray coma scale eye opening: Spontaneous Gray coma scale verbal response: Words Gray coma scale motor response: Obey commands Gray coma scale total score: 13 Course Orders Ordered: ED Orders 04/06/19 13:45 Acetaminophen Stat Complete Blood Count AUTO DIFF Stat Comprehensive Metabolic Panel Stat Ethanol (ETOH) Stat Lipase Stat Partial Thromboplastin Time Stat Prothrombin Time INR Stat 04/06/19 13:53 CT head/brain wo con Stat EKG-12 Lead Stat 04/06/19 13:55 XR chest 1V Stat 04/06/19 14:25 Ammonia (NH3) Stat B Type Natriuretic Peptide Stat Ketones (Beta-Hydroxybutyrate) Stat Lactate (Lactic Acid) Stat Magnesium Stat Phosphorous Stat Procalcitonin Stat Salicylate Stat Troponin I Stat 04/06/19 14:42 Blood Culture Stat 04/06/19 14:55 Urinalysis and Microscopic Stat Urine Culture Stat Urine Drug Screen, Rapid Stat 04/06/19 15:24 CT abdomen pelvis w con Stat 04/06/19 17:01 Troponin I Stat Sodium Chloride (Normal Saline 0.9%) 1,000 mls @ 125 mls/hr IV CONT VERONICA Last Admin: 04/06/19 14:50 Dose: 125 mls/hr Documented by: ASHELY Sodium Chloride (Normal Saline 0.9%) 3,681 mls @ 1,227 mls/hr 30 ml/kg infuse over 3 hr (3681 ml) IV NOW ONE Stop: 04/06/19 21:11 Discontinued Medications Aspirin (Aspirin Chew) 324 mg PO NOW ONE Stop: 04/06/19 15:25 Last Admin: 04/06/19 16:20 Dose: Not Given Documented by: ASHELY Aspirin (Aspirin) 300 mg AK NOW ONE Stop: 04/06/19 15:32 Last Admin: 04/06/19 16:00 Dose: 300 mg Documented by: ASHELY Ceftriaxone Sodium/Dextrose (Rocephin) 1 gm in 50 mls @ 100 mls/hr IV NOW ONE Stop: 04/06/19 15:33 Last Infusion: 04/06/19 16:46 Dose: 0 mls/hr Documented by: Admin: 04/06/19 16:16 Dose: 100 mls/hr Documented by: ASHELY Sodium Chloride (Normal Saline 0.9%) 1,000 mls @ 1,000 mls/hr IV BOLUS ONE Stop: 04/06/19 16:05 Last Infusion: 04/06/19 17:16 Dose: 0 mls/hr Documented by: Admin: 04/06/19 16:16 Dose: 1,000 mls/hr Documented by: ASHELY Sodium Chloride (Normal Saline 0.9%) 1,000 mls @ 1,000 mls/hr IV BOLUS ONE Stop: 04/06/19 18:49 Last Admin: 04/06/19 17:56 Dose: 1,000 mls/hr Documented by: ASHELY Vancomycin HCl (Vancomycin) 1,000 mg in 200 mls @ 200 mls/hr IV NOW ONE Stop: 04/06/19 19:06 Last Admin: 04/06/19 18:12 Dose: 200 mls/hr Documented by: ASHELY Vital Signs Vital signs: Vital Signs - 8 hr 04/06/19 13:55 04/06/19 14:10 04/06/19 14:30 Temperature 100.7 F H 99.4 F Pulse Rate 123 H 124 H Respiratory Rate 26 H 20 18 Blood Pressure 97/60 Blood Pressure [Left Arm] Blood Pressure [Right Wrist] 101/80 Pulse Oximetry 98 94 95 04/06/19 14:40 04/06/19 14:50 04/06/19 15:00 Temperature Pulse Rate 123 H 124 H 121 H Respiratory Rate 18 18 17 Blood Pressure Blood Pressure [Left Arm] Blood Pressure [Right Wrist] 109/79 97/75 97/81 Pulse Oximetry 97 96 98 04/06/19 15:10 04/06/19 15:20 04/06/19 15:30 Temperature 100.1 F H Pulse Rate 122 H 122 H 115 H Respiratory Rate 15 17 16 Blood Pressure Blood Pressure [Left Arm] Blood Pressure [Right Wrist] 97/81 103/71 Pulse Oximetry 98 97 97 04/06/19 16:00 04/06/19 16:12 04/06/19 16:24 Temperature 99.6 F Pulse Rate 120 H 121 H 118 H Respiratory Rate 18 19 18 Blood Pressure Blood Pressure [Left Arm] 102/65 101/72 Blood Pressure [Right Wrist] 130/114 H Pulse Oximetry 99 99 97 04/06/19 16:30 04/06/19 16:40 12/02/19 16:50 Temperature Pulse Rate 116 H 118 H 116 H Respiratory Rate 16 16 16 Blood Pressure Blood Pressure [Left Arm] 95/60 83/53 L 83/52 L Blood Pressure [Right Wrist] Pulse Oximetry 99 97 98 04/06/19 17:00 04/06/19 17:15 04/06/19 17:30 Temperature 99.5 F Pulse Rate 116 H 116 H 118 H Respiratory Rate 17 15 18 Blood Pressure Blood Pressure [Left Arm] 83/65 L 80/61 L 82/51 L Blood Pressure [Right Wrist] Pulse Oximetry 97 99 99 04/06/19 17:40 04/06/19 18:00 Temperature 99.4 F Pulse Rate 115 H 115 H Respiratory Rate 15 15 Blood Pressure Blood Pressure [Left Arm] 76/50 L 90/43 L Blood Pressure [Right Wrist] Pulse Oximetry 96 97 Medical Decision Making Lab Data Lab results reviewed: Yes I reviewed the patient's lab results. Result diagrams: 04/06/19 13:45 04/06/19 13:45 Labs: Lab Results 04/06/19 04/06/19 04/06/19 Range/Units 13:45 13:45 13:45 WBC 11.9 H (4.5-11.0) X10^3/uL RBC 3.68 L (4.0-5.2) X10^6/uL Hgb 12.2 (12.0-16.0) g/dL Hct 37.9 (36-46) % MCV 102.9 H (80-100) fL MCH 33.1 (26-34) PG MCHC 32.2 (30-36) % RDW 16.5 H (11.6-14.8) % Plt Count 215 (150-400) X10^3/uL Neut % (Auto) 66.1 (50-75) % Lymph % (Auto) 23.8 L (25-40) % [place] % (Auto) 8.4 (3-14) % Eos % (Auto) 0.7 L (2-4) % Baso % (Auto) 1.0 (0-2) % Neut # (Auto) 7900 H (7421-2931) /uL Lymph # (Auto) 2800 (3764-4803) /uL [place] # (Auto) 1000 H (0-900) /uL Eos # (Auto) 100 (0-450) /uL Baso # (Auto) 100 (0-100) /uL Platelet Estimate Adequate on smear Plt Morphology Comment RBC Morphology See below Macrocytosis 1+ H PT 11.4 (10.1-12.7) SECONDS INR 1.0 (0.9-1.3) APTT 25 L (26.4-36.2) SECONDS Sodium 148 H (137-145) mmol/L Potassium 3.5 (3.4-5.1) mmol/L Chloride 114 H (98-107) mmol/L Carbon Dioxide 26 (22-32) mmol/L BUN 29 H (7-17) mg/dL Creatinine 1.00 (0.52-1.04) mg/dL Estimated GFR 56.9 L (>60) mL/min BUN/Creatinine Ratio 29.0 H (6-22) Glucose 157 H (70-100) mg/dL Lactate (0.7-2.1) mmol/L Calcium 10.4 H (8.4-10.2) mg/dL Phosphorus (2.5-4.5) mg/dL Magnesium (1.6-2.3) mg/dL Total Bilirubin 0.9 (0.2-1.3) mg/dL AST 124 H (14-36) IU/L ALT 159 H (<35) IU/L Alkaline Phosphatase 306 H (38-126) U/L Ammonia (9-30) umol/L Troponin I (0.01-0.034) ng/mL B-Natriuretic Peptide (<100) Total Protein 5.6 L (6.3-8.2) g/dL Albumin 3.3 L (3.5-5.0) g/dL Globulin 2.3 (1.7-4.1) g/dL Albumin/Globulin Ratio 1.4 (1.0-2.8) Lipase 651 H (23-300) U/L Procalcitonin (<0.5) ng/mL Urine Color Urine Appearance Urine pH (4.5-8.0) Ur Specific [place] (1.000-1.035) Urine Protein (Negative) Urine Glucose (UA) (Negative) g/dL Urine Ketones (NEGATIVE) Urine Occult Blood (Negative) Urine Nitrate (Negative) Urine Bilirubin (NEGATIVE) Urine Urobilinogen (0.2) E.U./dL Ur Leukocyte Esterase (NEGATIVE) Urine RBC (0-5/HPF) Urine WBC (0-5/HPF) Ur Squamous Epith Cells (0-5/HPF) Amorphous Sediment Urine Bacteria (None) Ur Culture Indicated? Salicylates (<20) mg/dL U Morph 300 ng/mL cutoff (Negative) Ur Oxycodone Screen (Negative) Urine Methadone Screen (Negative) Acetaminophen < 10 L (10-30) ug/mL Ur Barbiturates Screen (Negative) U Tricyclic Antidepress (Negative) Ur Phencyclidine Scrn (Negative) Ur Amphetamines Screen (Negative) U Methamphetamines Scrn (Negative) Ur MDMA Scrn (Ecstasy) (Negative) U Benzodiazepines Scrn (Negative) Urine Cocaine Screen (Negative) U Marijuana (THC) Screen (Negative) Ethyl Alcohol < 10 ( - 10) mg/dL Ketones (<0.27) mmol/L 04/06/19 04/06/19 04/06/19 Range/Units 14:25 14:25 14:25 WBC (4.5-11.0) X10^3/uL RBC (4.0-5.2) X10^6/uL Hgb (12.0-16.0) g/dL Hct (36-46) % MCV (80-100) fL MCH (26-34) PG MCHC (30-36) % RDW (11.6-14.8) % Plt Count (150-400) X10^3/uL Neut % (Auto) (50-75) % Lymph % (Auto) (25-40) % [place] % (Auto) (3-14) % Eos % (Auto) (2-4) % Baso % (Auto) (0-2) % Neut # (Auto) (9867-3149) /uL Lymph # (Auto) (8306-3096) /uL [place] # (Auto) (0-900) /uL Eos # (Auto) (0-450) /uL Baso # (Auto) (0-100) /uL Platelet Estimate Plt Morphology Comment RBC Morphology Macrocytosis PT (10.1-12.7) SECONDS INR (0.9-1.3) APTT (26.4-36.2) SECONDS Sodium (137-145) mmol/L Potassium (3.4-5.1) mmol/L Chloride (98-107) mmol/L Carbon Dioxide (22-32) mmol/L BUN (7-17) mg/dL Creatinine (0.52-1.04) mg/dL Estimated GFR (>60) mL/min BUN/Creatinine Ratio (6-22) Glucose (70-100) mg/dL Lactate 3.8 H (0.7-2.1) mmol/L Calcium (8.4-10.2) mg/dL Phosphorus 3.1 (2.5-4.5) mg/dL Magnesium 1.8 (1.6-2.3) mg/dL Total Bilirubin (0.2-1.3) mg/dL AST (14-36) IU/L ALT (<35) IU/L Alkaline Phosphatase (38-126) U/L Ammonia 12.0 (9-30) umol/L Troponin I 0.028 (0.01-0.034) ng/mL B-Natriuretic Peptide (<100) Total Protein (6.3-8.2) g/dL Albumin (3.5-5.0) g/dL Globulin (1.7-4.1) g/dL Albumin/Globulin Ratio (1.0-2.8) Lipase (23-300) U/L Procalcitonin (<0.5) ng/mL Urine Color Urine Appearance Urine pH (4.5-8.0) Ur Specific [place] (1.000-1.035) Urine Protein (Negative) Urine Glucose (UA) (Negative) g/dL Urine Ketones (NEGATIVE) Urine Occult Blood (Negative) Urine Nitrate (Negative) Urine Bilirubin (NEGATIVE) Urine Urobilinogen (0.2) E.U./dL Ur Leukocyte Esterase (NEGATIVE) Urine RBC (0-5/HPF) Urine WBC (0-5/HPF) Ur Squamous Epith Cells (0-5/HPF) Amorphous Sediment Urine Bacteria (None) Ur Culture Indicated? Salicylates < 1.0 (<20) mg/dL U Morph 300 ng/mL cutoff (Negative) Ur Oxycodone Screen (Negative) Urine Methadone Screen (Negative) Acetaminophen (10-30) ug/mL Ur Barbiturates Screen (Negative) U Tricyclic Antidepress (Negative) Ur Phencyclidine Scrn (Negative) Ur Amphetamines Screen (Negative) U Methamphetamines Scrn (Negative) Ur MDMA Scrn (Ecstasy) (Negative) U Benzodiazepines Scrn (Negative) Urine Cocaine Screen (Negative) U Marijuana (THC) Screen (Negative) Ethyl Alcohol ( - 10) mg/dL Ketones 0.23 (<0.27) mmol/L 04/06/19 04/06/19 04/06/19 Range/Units 14:25 14:25 14:55 WBC (4.5-11.0) X10^3/uL RBC (4.0-5.2) X10^6/uL Hgb (12.0-16.0) g/dL Hct (36-46) % MCV (80-100) fL MCH (26-34) PG MCHC (30-36) % RDW (11.6-14.8) % Plt Count (150-400) X10^3/uL Neut % (Auto) (50-75) % Lymph % (Auto) (25-40) % [place] % (Auto) (3-14) % Eos % (Auto) (2-4) % Baso % (Auto) (0-2) % Neut # (Auto) (7151-5737) /uL Lymph # (Auto) (8052-9055) /uL [place] # (Auto) (0-900) /uL Eos # (Auto) (0-450) /uL Baso # (Auto) (0-100) /uL Platelet Estimate Plt Morphology Comment RBC Morphology Macrocytosis PT (10.1-12.7) SECONDS INR (0.9-1.3) APTT (26.4-36.2) SECONDS Sodium (137-145) mmol/L Potassium (3.4-5.1) mmol/L Chloride (98-107) mmol/L Carbon Dioxide (22-32) mmol/L BUN (7-17) mg/dL Creatinine (0.52-1.04) mg/dL Estimated GFR (>60) mL/min BUN/Creatinine Ratio (6-22) Glucose (70-100) mg/dL Lactate (0.7-2.1) mmol/L Calcium (8.4-10.2) mg/dL Phosphorus (2.5-4.5) mg/dL Magnesium (1.6-2.3) mg/dL Total Bilirubin (0.2-1.3) mg/dL AST (14-36) IU/L ALT (<35) IU/L Alkaline Phosphatase (38-126) U/L Ammonia (9-30) umol/L Troponin I (0.01-0.034) ng/mL B-Natriuretic Peptide < 100 (<100) Total Protein (6.3-8.2) g/dL Albumin (3.5-5.0) g/dL Globulin (1.7-4.1) g/dL Albumin/Globulin Ratio (1.0-2.8) Lipase (23-300) U/L Procalcitonin 1.01 H (<0.5) ng/mL Urine Color Yellow Urine Appearance Slightly cloudy Urine pH 5.0 (4.5-8.0) Ur Specific [place] <=1.005 (1.000-1.035) Urine Protein Negative (Negative) Urine Glucose (UA) Negative (Negative) g/dL Urine Ketones Negative (NEGATIVE) Urine Occult Blood 3+ H (Negative) Urine Nitrate Negative (Negative) Urine Bilirubin Negative (NEGATIVE) Urine Urobilinogen 0.2 (0.2) E.U./dL Ur Leukocyte Esterase 1+ H (NEGATIVE) Urine RBC 1-5/hpf (0-5/HPF) Urine WBC 5-10/hpf H (0-5/HPF) Ur Squamous Epith Cells 0-1 /hpf (0-5/HPF) Amorphous Sediment 1+ Urine Bacteria Few (2-10) H (None) Ur Culture Indicated? Specimen cultured Salicylates (<20) mg/dL U Morph 300 ng/mL cutoff (Negative) Ur Oxycodone Screen (Negative) Urine Methadone Screen (Negative) Acetaminophen (10-30) ug/mL Ur Barbiturates Screen (Negative) U Tricyclic Antidepress (Negative) Ur Phencyclidine Scrn (Negative) Ur Amphetamines Screen (Negative) U Methamphetamines Scrn (Negative) Ur MDMA Scrn (Ecstasy) (Negative) U Benzodiazepines Scrn (Negative) Urine Cocaine Screen (Negative) U Marijuana (THC) Screen (Negative) Ethyl Alcohol ( - 10) mg/dL Ketones (<0.27) mmol/L 04/06/19 04/06/19 04/06/19 Range/Units 14:55 17:01 17:01 WBC (4.5-11.0) X10^3/uL RBC (4.0-5.2) X10^6/uL Hgb (12.0-16.0) g/dL Hct (36-46) % MCV (80-100) fL MCH (26-34) PG MCHC (30-36) % RDW (11.6-14.8) % Plt Count (150-400) X10^3/uL Neut % (Auto) (50-75) % Lymph % (Auto) (25-40) % [place] % (Auto) (3-14) % Eos % (Auto) (2-4) % Baso % (Auto) (0-2) % Neut # (Auto) (1861-5123) /uL Lymph # (Auto) (4798-6037) /uL [place] # (Auto) (0-900) /uL Eos # (Auto) (0-450) /uL Baso # (Auto) (0-100) /uL Platelet Estimate Plt Morphology Comment RBC Morphology Macrocytosis PT (10.1-12.7) SECONDS INR (0.9-1.3) APTT (26.4-36.2) SECONDS Sodium (137-145) mmol/L Potassium (3.4-5.1) mmol/L Chloride (98-107) mmol/L Carbon Dioxide (22-32) mmol/L BUN (7-17) mg/dL Creatinine (0.52-1.04) mg/dL Estimated GFR (>60) mL/min BUN/Creatinine Ratio (6-22) Glucose (70-100) mg/dL Lactate 3.6 H (0.7-2.1) mmol/L Calcium (8.4-10.2) mg/dL Phosphorus (2.5-4.5) mg/dL Magnesium (1.6-2.3) mg/dL Total Bilirubin (0.2-1.3) mg/dL AST (14-36) IU/L ALT (<35) IU/L Alkaline Phosphatase (38-126) U/L Ammonia (9-30) umol/L Troponin I 0.040 H (0.01-0.034) ng/mL B-Natriuretic Peptide (<100) Total Protein (6.3-8.2) g/dL Albumin (3.5-5.0) g/dL Globulin (1.7-4.1) g/dL Albumin/Globulin Ratio (1.0-2.8) Lipase (23-300) U/L Procalcitonin (<0.5) ng/mL Urine Color Urine Appearance Urine pH (4.5-8.0) Ur Specific [place] (1.000-1.035) Urine Protein (Negative) Urine Glucose (UA) (Negative) g/dL Urine Ketones (NEGATIVE) Urine Occult Blood (Negative) Urine Nitrate (Negative) Urine Bilirubin (NEGATIVE) Urine Urobilinogen (0.2) E.U./dL Ur Leukocyte Esterase (NEGATIVE) Urine RBC (0-5/HPF) Urine WBC (0-5/HPF) Ur Squamous Epith Cells (0-5/HPF) Amorphous Sediment Urine Bacteria (None) Ur Culture Indicated? Salicylates (<20) mg/dL U Morph 300 ng/mL cutoff Negative (Negative) Ur Oxycodone Screen Negative (Negative) Urine Methadone Screen Negative (Negative) Acetaminophen (10-30) ug/mL Ur Barbiturates Screen Negative (Negative) U Tricyclic Antidepress Negative (Negative) Ur Phencyclidine Scrn Negative (Negative) Ur Amphetamines Screen Negative (Negative) U Methamphetamines Scrn Negative (Negative) Ur MDMA Scrn (Ecstasy) Negative (Negative) U Benzodiazepines Scrn Negative (Negative) Urine Cocaine Screen Negative (Negative) U Marijuana (THC) Screen Negative (Negative) Ethyl Alcohol ( - 10) mg/dL Ketones (<0.27) mmol/L Imaging Data CT scan - head: Radiologist's impression: [address] [address] [address] Scan Report Signed Patient: Breana Claudio R#: [id number] : 1960cct:[id number] Age/Sex: 59 / FDate of Service: 04/06/19 Loc: ED Accession Number: [id number] Procedure: CT head/brain wo con Ordering Provider: Jose Daniel Greco D.O. PROCEDURE: CT HEAD/BRAIN WO CON INDICATIONS: AMS TECHNIQUE: Noncontrast 4.5 mm thick angled axial sections acquired from the foramen magnum to the vertex, with coronal and sagittal reformats. For radiation dose reduction, the following was used: automated exposure control, adjustment of mA and/or kV according to patient size. COMPARISON: [facility], MR, MR BRAIN WITH/WITHOUT CONTRAST, 03/31/2019, 10:28. [facility], CT, CT HEAD/BRAIN WO CON, 12/08/2018, 20:39. [facility], CT, CT HEAD/BRAIN WO CON, 06/06/2018, 18:51. FINDINGS: Image quality: Excellent. CSF spaces: Basal cisterns are patent. No extra-axial fluid collections. Ventricles are normal in size and shape. Brain: No midline shift. No intracranial masses or hemorrhage. Sainz-white matter interface is extensively abnormal in the frontal regions bilaterally, extending into the parietal regions bilaterally greater on the left than the right and there are bands of calcification extending through this area to the right of midline. Reportedly this is related to radiation therapy. Skull and face: Calvarium and visualized facial bones are intact, without suspicious lesions. Sinuses: Visualized sinuses and mastoids are clear. IMPRESSION: No traveler changer time. Apparent gliosis related to prior radiation therapy stable over time. Source of new altered mental status is not seen Dictated by: Amadou Garcia M.D. on 04/06/2019 at 14:25 Approved by: Amadou Garcia M.D. on 04/06/2019 at 14:27 Chest x-ray: Radiologist's impression: [place] [address] XRay Report Signed Patient: Breana Claudio JMR#: [id number] : 1Acct:[id number] Age/Sex: 59 / FDate of Service: 04/06/19 Loc: ED Accession Number: [id number] Procedure: XR chest 1V Ordering Provider: Jose Daniel Greco D.O. PROCEDURE: XR CHEST 1V INDICATIONS: sepsis work up eval fo [facility]NA TECHNIQUE: One view of the chest was acquired. COMPARISON: [facility], CR, XR CHEST 1V, 03/18/2019, 3:14. FINDINGS: Surgical changes and devices: None. Lungs and pleura: Low lung volumes with scattered subsegmental atelectasis/scarring. No pleural effusions or pneumothorax. Mediastinum: Mediastinal contours appear normal. Heart size is normal. Bones and chest wall: No suspicious bony lesions. Overlying soft tissues appear unremarkable. IMPRESSION: Low lung volumes with scattered subsegmental atelectasis/scarring. Dictated by: Monico Galaviz M.D. on 04/06/2019 at 14:29 Approved by: Monico Galaviz M.D. on 04/06/2019 at 15:07 CT scan - abdomen: Radiologist's impression: [address] [address] [address] Scan Report Signed Patient: Breana Claudio JMR#: [id number] : 1960cct:[id number] Age/Sex: 59 / FDate of Service: 04/06/19 Loc: ED Accession Number: [id number] Procedure: CT abdomen pelvis w con Ordering Provider: Jose Daniel Greco D.O. PROCEDURE: CT ABDOMEN PELVIS W CON INDICATIONS: Generalized abdominal pain TECHNIQUE: After the administration of oral and intravenous contrast, 5 mm thick sections acquired from the diaphragms to the symphysis. 5 mm thick coronal and sagittal reformats were performed. For radiation dose reduction, the following was used: automated exposure control, adjustment of mA and/or kV according to patient size. COMPARISON: [facility], CT, CT ABDOMEN PELVIS W CON, 03/25/2019, 11:21. [facility], CT, CT ABDOMEN PELVIS W CON, 03/07/2019, 14:30. FINDINGS: Image quality: Excellent. ABDOMEN: Lung bases: Lung bases are clear. Heart size is normal. Solid organs: Liver is normal in size and enhancement. Gallbladder has been previously resected. Biliary system is non-dilated. Pancreas enhances normally. Spleen is normal in size and enhancement. No adrenal nodules. Kidneys are normal in size and enhancement, without hydronephrosis. Peritoneum and bowel: Stomach, small bowel, and colon loops are normal in caliber and wall thickness. No free fluid or air. Nodes and vessels: No retroperitoneal or mesenteric adenopathy. Aorta and inferior vena cava are normal in caliber. Miscellaneous: No ventral hernias. PELVIS: Genitourinary: Bladder wall thickness is normal. A Edwards catheter empties the bladder lumen. Miscellaneous: No inguinal hernias or adenopathy. Bones: No suspicious bony lesions. No vertebral body compression fractures. IMPRESSION: Edwards catheter empties the bladder lumen. Source of generalized abdominal pain is not seen. Prior cholecystectomy. Dictated by: Amadou Garcia M.D. on 04/06/2019 at 16:01 Approved by: Amadou Garcia M.D. on 04/06/2019 at 16:02 ECG Data Attestation: I personally reviewed and interpreted this ECG as follows: Prior ECG tracings: available for review Interpretation: Sinus tachycardia Ventricular rate of 123 Normal as needed oval Normal axis ST depression in 1 aVL V3 V4 V5 V6 No ST elevations Comparison EKG 06/06/2018 Sinus rhythm Rate [address] T wave changes MDM Narrative Medical decision making narrative: 59-year-old female with multiple medical problems arise tachycardic and febrile. Had an elevated lactate. Was given vancomycin Rocephin. Fluids were administered. Unsure the exact etiology. Chest x-ray is negative. Urine shows no signs of infection. She does have sacral decubitus ulcers however these do not appear to be the source of her infection. Her mental status does seem to improving somewhat with fluids in the antibiotics. She does have an elevated lipase. Has generalized abdominal pain. CT scan shows no source of her infection. She has had her gallbladder removed. She has had elevated lipase in the past with prior admissions. No specific reason for this. There are no CT scan findings concerning for pancreatitis. Has recent as the beginning of last month she was admitted for GI bleed. This does appear to be a proctitis issue given those notes. She has been receiving steroid enemas because of this at the nursing facility. She does have ST depressions V 1 aVL and laterally. No ST elevations. Her initial troponin was detectable but negative 2nd troponin was slightly more elevated. She has never been complaining of chest pain however this is in the setting of someone who is slightly altered with regard to her mental status. I feel that given her troponin changes in her lack of chest pain and her recent GI bleeds that holding on heparin is warranted in her case. I did discuss the case with cardiology at [facility] who agrees with this. Also discussed the case with the hospitalist at [facility] who accepts the patient in transport. I do feel that given her sepsis of unknown origin and her EKG changes that transferring to [facility] has cardiology is warranted. Patient is stable for transport. Critical Care Time Critical Care Time Total Critical Care Time: 40 Attestation: The high probability of a clinically significant, sudden or life threatening deterioration of the cardiovascular, system(s) required my full and direct attention, intervention and personal management. The aggregate critical care time was 40 minutes. This time is in addition to time spent performing reported procedures but includes the following: [] Data Review and interpretation [] Patient assessment and monitoring of vital signs [] Documentation [] Medication orders and management Discharge Plan Departure Patient Disposition: [facility] Clinical Impression: Fever of unknown origin, Elevated troponin, Elevated lipase Prescriptions: No Action ondansetron HCl 4 mg tablet 4 mg PO Q6H PRN (Reason: Nausea And Vomiting) Qty: 30 RF: 0 (DME) Easy Touch Pen Needle 30 gauge x 5/16 needle See Dose Instructions .ROUTE .MEDSUPPLY Qty: 100 RF: 1 meclizine 25 mg tablet 25 mg PO Q6H PRN (Reason: dizziness or vertigo) Qty: 90 RF: 3 acetaminophen 325 mg tablet 650 mg PO Q4H PRN (Reason: Fever Or Pain) Qty: 90 RF: 0 (DME) lancets [TRUEplus Lancets] 30 gauge misc See Rx Instructions .ROUTE .MEDSUPPLY Qty: 100 RF: 3 hydrocortisone acetate 1 % cream 1 applic TOPICAL Q8H PRN (Reason: Rash) Qty: 57 RF: 0 midodrine 5 mg tablet 5 mg PO BID Qty: 30 RF: 8 citalopram 20 mg tablet 20 mg PO DAILY Qty: 90 RF: 1 omega 2-cee-dry-fish oil [Fish Oil] 1,000 mg (120 mg-180 mg) capsule 1 cap PO DAILY Qty: 30 RF: 8 cholecalciferol (vitamin D3) 1,000 unit capsule 1,000 unit PO DAILY Qty: 90 RF: 3 aspirin 81 mg tablet,delayed release (DR/EC) 81 mg PO DAILY Qty: 30 RF: 11 levetiracetam 250 mg tablet 750 mg PO BEDTIME Qty: 90 RF: 8 potassium chloride 20 mEq tablet,ER particles/crystals 40 meq PO BID Qty: 180 RF: 3 omeprazole 20 mg capsule,delayed release(DR/EC) 20 mg PO BID Qty: 180 RF: 1 magnesium oxide 400 mg (241.3 mg magnesium) tablet 400 mg PO BID Qty: 60 RF: 5 melatonin 3 mg tablet 6 mg PO BEDTIME Qty: 180 RF: 0 polyethylene glycol 3350 17 gram/dose powder 17 gram PO DAILY Qty: 510 RF: 3 nystatin 100,000 unit/gram powder 1 applic topical PRN PRN (Reason: Rash) Qty: 30 RF: 3 Glucagon Emergency Kit (human) 1 mg recon soln See Rx Instructions .ROUTE .COMPLEX RF: 0 furosemide 40 mg tablet 40 mg PO DAILY RF: 0 sennosides 8.6 mg Tablet 17.2 mg PO BID RF: 0 insulin lispro [Humalog U-100 Insulin] 100 unit/mL Solution 1 sliding scale dose SUBCUT QID RF: 0 fluconazole [Diflucan] 150 mg Tablet 150 mg PO DAILY Qty: 5 RF: 0 hydrocortisone 100 mg/60 mL Enema 100 mg AK BEDTIME 30 Days Qty: 1680 RF: 0 atorvastatin 10 mg tablet 10 mg PO BEDTIME RF: 0 Basaglar KwikPen U-100 Insulin 100 unit/mL (3 mL) insulin pen 70 unit subcut QAM RF: 0 Basaglar KwikPen U-100 Insulin 100 unit/mL (3 mL) insulin pen 65 unit subcut BEDTIME RF: 0 dexamethasone 1 mg Tablet 2 mg PO [id number] RF: 0 insulin lispro [Humalog KwikPen Insulin] 100 unit/mL Insulin Pen 20 unit SUBCUT QPM RF: 0 Robitussin Dm 5 ml PO Q4H PRN (Reason: Cough) RF: 0 folic acid 400 mcg tablet 0.4 mg PO BEDTIME RF: 0 levetiracetam 250 mg tablet 500 mg PO QAM RF: 0 Referrals: Naveen Vaughn MD [Primary Care Provider] -
[2019-04-06 15:05] LABS: Troponin I 0.028 ng/mL (0.01-0.034)
[2019-04-06 15:14] LABS: Bilirubin Urine UA NEGATIVE (NEGATIVE); Color Urine UA YELLOW; Glucose Urine UA NEGATIVE (Negative); Ketones Urine UA NEGATIVE (NEGATIVE); Leukocyte Esterase Urine UA 1+ (NEGATIVE); Nitrite Urine UA NEGATIVE (Negative); Occult Blood Urine UA 3+ (Negative); Protein Urine UA NEGATIVE (Negative); Specific Gravity Urine UA <=1.005 (1.000-1.035); Urobilinogen Urine UA 0.2 E.U./dL (0.2)
[2019-04-06 15:15] LABS: Ketones (Beta-Hydroxybutyrate) 0.23 mmol/L (<0.27)
[2019-04-06 15:16] LABS: Procalcitonin 1.01 ng/mL (<0.5)
[2019-04-06 15:24] LABS: Appearance Urine UA Slightly Cloudy; RBC Urine 1-5/HPF (0-5/HPF); Squamous Epithelial Cell Urine 0-1 /HPF (0-5/HPF); UR Morphine/Opiate cutoff 300 Negative (Negative); Ur Creatinine Normal (Normal); Ur Specific Gravity Normal (Normal); Urine Amphetamines Negative (Negative); Urine Barbiturates Negative (Negative); Urine Benzodiazepines Negative (Negative); Urine Cocaine Negative (Negative); Urine MDMA Negative (Negative); Urine Methadone Negative (Negative); Urine Methamphetamines Negative (Negative); Urine Oxycodone Negative (Negative); Urine Phencyclidine Negative (Negative); Urine Tetrahydrocannabinol Negative (Negative); Urine Tricyclic Antidepressant Negative (Negative); Urine pH Normal (Normal); WBC Urine 5-10/HPF (0-5/HPF)
--- NOTE | 2019-04-06 15:24 | DI.CT.S_ITS ---
PROCEDURE: CT ABDOMEN PELVIS W CON INDICATIONS: Generalized abdominal pain TECHNIQUE: After the administration of oral and intravenous contrast, 5 mm thick sections acquired from the diaphragms to the symphysis. 5 mm thick coronal and sagittal reformats were performed. For radiation dose reduction, the following was used: automated exposure control, adjustment of mA and/or kV according to patient size. COMPARISON: [facility], CT, CT ABDOMEN PELVIS W CON, 03/25/2019, 11:21. [facility], CT, CT ABDOMEN PELVIS W CON, 03/07/2019, 14:30. FINDINGS: Image quality: Excellent. ABDOMEN: Lung bases: Lung bases are clear. Heart size is normal. Solid organs: Liver is normal in size and enhancement. Gallbladder has been previously resected. Biliary system is non-dilated. Pancreas enhances normally. Spleen is normal in size and enhancement. No adrenal nodules. Kidneys are normal in size and enhancement, without hydronephrosis. Peritoneum and bowel: Stomach, small bowel, and colon loops are normal in caliber and wall thickness. No free fluid or air. Nodes and vessels: No retroperitoneal or mesenteric adenopathy. Aorta and inferior vena cava are normal in caliber. Miscellaneous: No ventral hernias. PELVIS: Genitourinary: Bladder wall thickness is normal. A Edwards catheter empties the bladder lumen. Miscellaneous: No inguinal hernias or adenopathy. Bones: No suspicious bony lesions. No vertebral body compression fractures. IMPRESSION: Edwards catheter empties the bladder lumen. Source of generalized abdominal pain is not seen. Prior cholecystectomy. Dictated by: Amadou Garcia M.D. on 04/06/2019 at 16:01 Approved by: Amadou Garcia M.D. on 04/06/2019 at 16:02
[2019-04-06 15:25] LABS: Amorphous Sediment Urine 1+; Bacteria Urine Few (2-10); Culture Indicated Urine Specimen Cultured
[2019-04-06 15:41] LABS: B Type Natriuretic Peptide < 100 (<100)
[2019-04-06] MEDS: ASPIRIN 300 MG SUPP PR (16:00)
[2019-04-06] MEDS: CEFTRIAXONE 1 GM/50 ML FROZ.PIGGY IV (16:16)
[2019-04-06] MEDS: SODIUM CHLORIDE 0.9% 1,000 ML 1000 ML IV ×2 (16:16→17:56)
--- NOTE | 2019-04-06 16:23 | PC.NURSE ---
During pericare this RN noticed two small open areas on coccyx. No bleeding from wound. Pt cleaned up for stool incontinence, blood noted in stool, Dr. Greco aware.
[2019-04-06 16:35] LABS: Reflexed Lactate in 2 Hours Y
[2019-04-06 17:19] LABS: Lactate 2HR (Lactic Acid Rflx) 3.6 mmol/L (0.7-2.1)
[2019-04-06] MEDS: VANCOMYCIN 1,000 MG/200 ML PIGGYBACK 200 MG IV (18:12)
[2019-04-06] MEDS: SODIUM CHLORIDE 0.9% 1227 ML IV (19:00)
[2019-04-06] MEDS: HYDROCORTISONE 100 MG/2 ML VIAL IV (19:36)
[2019-04-06 19:56] LABS: Hematocrit 38.3 % (36-46); Hemoglobin 12.1 g/dL (12.0-16.0)
--- NOTE | 2019-04-06 20:00 | PC.NURSE ---
Provider ordered 30 ml/kg NS after 2 liters had been given. Pt received final 1681 mL starting at 1900. Pt received a total of 3681 mL NS at time of transport.
--- NOTE | 2019-04-07 15:22 | CM.DPC ---
Accessed this chart for [facility] family preservation caseworker Mireya to provide her with a disposition for the patient so that they can follow up with her as appropriate.
--- NOTE | 2019-04-08 14:20 | CM.DPC ---
DCP Cont: Faxed all clinicals from recent ER visit to Mireya with [facility] at fax # [phone]. Fax confirmation scanned in. Ines Mcneil, [employer] Department Supervisor
== END 2019-04-06 20:15 | disposition short-term general hospital (02) ==
PROVIDERS: Emergency Provider Emergency Medicine; PCP Internal Medicine
DX: R50.9 Fever, unspecified (principal); R79.89 Other specified abnormal findings of blood chemistry; R10.84 Generalized abdominal pain; R00.0 Tachycardia, unspecified; I95.9 Hypotension, unspecified
CPT/HCPCS: 36415; 51701; 70450; 71045; 74177; 80053; 80305; 80320; 80329; 81001; 82009; 82140; 82962; 83605; 83690; 83735; 83880; 84100; 84145; 84484; 85014; 85018; 85025; 85610; 85730; 87040; 87077; 87086; 87186; 93005; 96361; 96365; 96367; 96375; 99285; 99291; 99292; G0480; J1720; Q9967

== ENCOUNTER → 2019-04-20 19:26 | Outpatient (ROUT) | payer MEDICARE, MEDICAID, SELFPAY ==
[2019-03-25 01:33] VITALS: BMI 43.2
[2019-04-20 19:29] LABS: RBC Urine None Seen (0-5/HPF)
[2019-04-20 19:34] LABS: Appearance Urine UA CLOUDY; Bilirubin Urine UA NEGATIVE (NEGATIVE); Color Urine UA YELLOW; Glucose Urine UA NEGATIVE (Negative); Ketones Urine UA TRACE (NEGATIVE); Leukocyte Esterase Urine UA TRACE (NEGATIVE); Nitrite Urine UA POSITIVE (Negative); Occult Blood Urine UA NEGATIVE (Negative); Protein Urine UA 1+ (Negative); Urobilinogen Urine UA 0.2 E.U./dL (0.2)
[2019-04-20 19:52] LABS: Squamous Epithelial Cell Urine 0-1 /HPF (0-5/HPF); WBC Urine 10-30/HPF (0-5/HPF)
[2019-04-20 19:53] LABS: Amorphous Sediment Urine 3+; Bacteria Urine Many (>30); Culture Indicated Urine Specimen Cultured; Mucus Urine 1+ (Negative)
== END ==
PROVIDERS: PCP Internal Medicine; Visit Provider Internal Medicine
DX: R10.2 Pelvic and perineal pain (principal)
CPT/HCPCS: 81001; 87077; 87086; 87102; 87186

== ENCOUNTER → 2019-05-12 10:10 | Outpatient (ROUT) | payer MEDICARE, MEDICAID, SELFPAY ==
[2019-03-25 01:33] VITALS: BMI 43.2
[2019-05-12 10:31] LABS: Add Manual Diff / Slide Review NO; Basophils Absolute Auto 100 /uL (0-100); Basophils Percent Auto 0.6 % (0-2); Eosinophils Absolute Auto 100 /uL (0-450); Eosinophils Percent Auto 0.5 % (2-4); Hematocrit 31.9 % (36-46); Hemoglobin 10.6 g/dL (12.0-16.0); Lymphocytes Absolute Auto 2000 /uL (1100-4500); Lymphocytes Percent Auto 19.7 % (25-40); Mean Corpuscular HGB Conc 33.2 % (30-36); Mean Corpuscular Hemoglobin 32.5 PG (26-34); Mean Corpuscular Volume 98.1 fL (80-100); Monocytes Absolute Auto 900 /uL (0-900); Monocytes Percent Auto 8.4 % (3-14); Neutrophils Absolute Auto 7200 /uL (1500-7000); Neutrophils Percent Auto 70.8 % (50-75); Platelet Count 223 X10^3/uL (150-400); Red Blood Cell Count 3.25 X10^6/uL (4.0-5.2); Red Cell Distribution Width 16.9 % (11.6-14.8); White Blood Cell Count 10.1 X10^3/uL (4.5-11.0)
[2019-05-12 10:49] LABS: Alanine Aminotransferase 178 IU/L (<35); Albumin 3.2 g/dL (3.5-5.0); Albumin Globulin Ratio 1.3 (1.0-2.8); Alkaline Phosphatase 328 U/L (38-126); Aspartate Aminotransferase 232 IU/L (14-36); Bilirubin Total 0.4 mg/dL (0.2-1.3); Blood Urea Nitrogen 19 mg/dL (7-17); Calcium 9.2 mg/dL (8.4-10.2); Carbon Dioxide 29 mmol/L (22-32); Chloride 105 mmol/L (98-107); Estimated Glomerular Filt Rate > 60.0 mL/min (>60); Globulin 2.4 g/dL (1.7-4.1); Glucose 77 mg/dL (70-100); HEMOLYSIS < 15 (0-50); Magnesium 1.8 mg/dL (1.6-2.3); Potassium 3.7 mmol/L (3.4-5.1); Sodium 138 mmol/L (137-145); Total Protein 5.6 g/dL (6.3-8.2)
== END ==
PROVIDERS: PCP Internal Medicine; Visit Provider Internal Medicine
DX: I50.9 Heart failure, unspecified (principal); E87.6 Hypokalemia; E03.9 Hypothyroidism, unspecified; R94.5 Abnormal results of liver function studies
CPT/HCPCS: 36415; 80053; 83735; 85025

== ENCOUNTER → 2019-05-19 08:12 | Outpatient (ROUT) | payer MEDICARE, MEDICAID, SELFPAY ==
[2019-03-25 01:33] VITALS: BMI 43.2
[2019-05-19 08:59] LABS: Alanine Aminotransferase 124 IU/L (<35); Albumin 3.2 g/dL (3.5-5.0); Albumin Globulin Ratio 1.2 (1.0-2.8); Alkaline Phosphatase 277 U/L (38-126); Aspartate Aminotransferase 140 IU/L (14-36); Bilirubin Total 0.4 mg/dL (0.2-1.3); Blood Urea Nitrogen 19 mg/dL (7-17); Calcium 9.2 mg/dL (8.4-10.2); Carbon Dioxide 31 mmol/L (22-32); Chloride 103 mmol/L (98-107); Estimated Glomerular Filt Rate > 60.0 mL/min (>60); Globulin 2.6 g/dL (1.7-4.1); Glucose 92 mg/dL (70-100); HEMOLYSIS < 15 (0-50); Potassium 3.4 mmol/L (3.4-5.1); Sodium 139 mmol/L (137-145); Total Protein 5.8 g/dL (6.3-8.2)
== END ==
PROVIDERS: PCP Internal Medicine; Visit Provider Nurse Practitioner Family
DX: R74.8 Abnormal levels of other serum enzymes (principal)
CPT/HCPCS: 36415; 80053

== ENCOUNTER 2019-05-29 14:00 | Inpatient (IN) | payer MEDICARE, MEDICAID, SELFPAY ==
[2019-03-25 01:33] VITALS: BMI 43.2
[2019-05-29] VITALS (7 sets, daily range): BP systolic 96–141; BP diastolic 44–80; PULSE 102–118; RESP 17–27; TEMP 36.7–37.4; O2SAT 94–100; BMI 43.7
--- NOTE | 2019-05-29 14:10 | DI.RAD.S_ITS ---
PROCEDURE: XR CHEST 1V INDICATIONS: suspected sepsis TECHNIQUE: One view of the chest was acquired. COMPARISON: [facility], CR, XR CHEST 1V, 04/06/2019, 14:08. FINDINGS: Surgical changes and devices: None. Lungs and pleura: Increased pulmonary vascularity is present. Minimal appearance of streaky opacities are present in the retrocardiac region, unchanged. Mediastinum: Mediastinal contours appear normal. Heart size is minimally prominent. Bones and chest wall: No suspicious bony lesions. Overlying soft tissues appear unremarkable. IMPRESSION: Increased pulmonary vascularity suggestive of edema. Minimal streaky retrocardiac opacities are present which could represent atelectasis, developing pneumonia and/or focal edema. Dictated by: Clementine Menjivar M.D. on 05/29/2019 at 15:21 Approved by: Clementine Menjivar M.D. on 05/29/2019 at 15:25
[2019-05-29 14:15] LABS: Add Manual Diff / Slide Review NO; Basophils Absolute Auto 100 /uL (0-100); Basophils Percent Auto 0.9 % (0-2); Eosinophils Absolute Auto 100 /uL (0-450); Eosinophils Percent Auto 0.6 % (2-4); Hematocrit 33.4 % (36-46); Hemoglobin 10.8 g/dL (12.0-16.0); Lymphocytes Absolute Auto 1500 /uL (1100-4500); Lymphocytes Percent Auto 15.1 % (25-40); Mean Corpuscular HGB Conc 32.4 % (30-36); Mean Corpuscular Volume 98.9 fL (80-100); Monocytes Absolute Auto 1100 /uL (0-900); Monocytes Percent Auto 10.5 % (3-14); Neutrophils Absolute Auto 7400 /uL (1500-7000); Neutrophils Percent Auto 72.9 % (50-75); Platelet Count 234 X10^3/uL (150-400); Red Blood Cell Count 3.38 X10^6/uL (4.0-5.2); Red Cell Distribution Width 15.9 % (11.6-14.8); White Blood Cell Count 10.1 X10^3/uL (4.5-11.0)
[2019-05-29 14:19] LABS: INR 1.1 (0.9-1.3); Prothrombin Time 12.3 SECONDS (10.1-12.7)
[2019-05-29 14:22] LABS: PTT Partial Thromboplastin Tim 27 SECONDS (26.4-36.2)
[2019-05-29 14:36] LABS: Creatine Kinase 204 U/L (30-135); Lipase 340 U/L (23-300)
[2019-05-29 14:37] LABS: Albumin 3.5 g/dL (3.5-5.0); Albumin Globulin Ratio 1.1 (1.0-2.8); Alkaline Phosphatase 247 U/L (38-126); Aspartate Aminotransferase 116 IU/L (14-36); BUN Creatinine Ratio 21.1 (6-22); Bilirubin Total 1.2 mg/dL (0.2-1.3); Blood Urea Nitrogen 19 mg/dL (7-17); Calcium 9.3 mg/dL (8.4-10.2); Carbon Dioxide 25 mmol/L (22-32); Chloride 104 mmol/L (98-107); Estimated Glomerular Filt Rate > 60.0 mL/min (>60); Globulin 3.1 g/dL (1.7-4.1); Glucose 405 mg/dL (70-100); HEMOLYSIS 43 (0-50); Lipase 347 U/L (23-300); Potassium 3.7 mmol/L (3.4-5.1); Sodium 140 mmol/L (137-145); Total Protein 6.6 g/dL (6.3-8.2)
[2019-05-29 14:44] LABS: Alanine Aminotransferase 81 IU/L (<35)
[2019-05-29 14:48] LABS: Troponin I < 0.012 ng/mL (0.01-0.034)
[2019-05-29 14:49] LABS: Procalcitonin 1.08 ng/mL (<0.5)
[2019-05-29 14:52] LABS: CKMB % Relative Index 0.7 % (1.5-5.0); Creatine Kinase MB 1.49 ng/mL (<2.37)
[2019-05-29] MEDS: SODIUM CHLORIDE 0.9% 1,000 ML 1000 ML IV ×2 (15:03→16:28)
--- NOTE | 2019-05-29 15:35 | PC.NURSE ---
Attempted hernandez placement, unsuccessful. Second RN to attempt.
--- NOTE | 2019-05-29 15:48 | DI.CT.S_ITS ---
PROCEDURE: CT HEAD/BRAIN WO CON INDICATIONS: altered mental status TECHNIQUE: Noncontrast 4.5 mm thick angled axial sections acquired from the foramen magnum to the vertex, with coronal and sagittal reformats. For radiation dose reduction, the following was used: automated exposure control, adjustment of mA and/or kV according to patient size. COMPARISON: [facility], MR, MR BRAIN WITH/WITHOUT CONTRAST, 03/31/2019, 10:28. , CT, CT HEAD/BRAIN WO CON, 04/06/2019, 13:52. FINDINGS: Image quality: This examination is limited by involuntary motion artifact. Images are repeated, with some improvement. CSF spaces: Basal cisterns are patent. No extra-axial fluid collections. Ventricles are normal in size and shape. Brain: Remote bifrontal lobe encephalomalacia is seen, with volume loss and dystrophic calcification. This is not significantly changed compared to the prior examination. No midline shift. No intracranial masses or hemorrhage. Sainz-white matter interface is normal. Skull and face: Left-sided craniotomy changes are seen. Calvarium and visualized facial bones are intact, without suspicious lesions. Sinuses: Visualized sinuses and mastoids are clear. IMPRESSION: Stable, remote frontal encephalomalacia with volume loss and with dystrophic calcifications. No acute intracranial process is seen. No acute intracranial hemorrhage is seen. Dictated by: Chetan Black M.D. on 05/29/2019 at 15:20 Approved by: Chetan Black M.D. on 05/29/2019 at 15:22
[2019-05-29 16:01] LABS: RBC Urine None Seen (0-5/HPF)
[2019-05-29 16:03] LABS: Appearance Urine UA CLEAR; Bilirubin Urine UA NEGATIVE (NEGATIVE); Color Urine UA YELLOW; Glucose Urine UA 2+ g/dL (Negative); Ketones Urine UA NEGATIVE (NEGATIVE); Leukocyte Esterase Urine UA TRACE (NEGATIVE); Nitrite Urine UA NEGATIVE (Negative); Occult Blood Urine UA NEGATIVE (Negative); Protein Urine UA NEGATIVE (Negative); Specific Gravity Urine UA 1.015 (1.000-1.035); Urobilinogen Urine UA 0.2 E.U./dL (0.2)
--- NOTE | 2019-05-29 16:03 | ED_ITS ---
HPI - Altered Mental Status <HARI Neal - Last Filed: 05/29/19 22:16> General Chief Complaint: Altered Mental Status Stated Complaint: Hyperglycemia Time Seen by Provider: 05/29/19 14:07 Source: EMS Mode of arrival: EMS Limitations: no limitations History of Present Illness HPI narrative: This is a 59-year-old female who was brought in by EMS from [facility] with elevated blood sugar and vomiting and diarrhea for 1 week. She visits to ED frequent with admission to the hospital extensive medical history of seizure disorder, cognitive dysfunction, insulin-dependent diabetes, GI bleed, pancreatitis, UTI. Patient denies abdominal pain, dysuria or chest pain but reports difficulty breathing. Difficulty obtaining history due to decreased mental status. Related Data Home Medications Medication Instructions Recorded Confirmed furosemide 40 mg PO DAILY 02/02/19 05/29/19 sennosides 17.2 mg PO BID 03/25/19 05/29/19 atorvastatin 10 mg PO BEDTIME 04/06/19 05/29/19 folic acid 0.4 mg PO BEDTIME 04/06/19 05/29/19 insulin glargine [Basaglar KwikPen 30 unit SUBCUT BEDTIME 04/06/19 05/29/19 U-100 Insulin] acetaminophen 650 mg CO Q4H PRN 05/29/19 05/29/19 furosemide 80 mg PO DAILY 05/29/19 05/29/19 insulin aspart U-100 [Novolog 15 unit SUBCUT BID 05/29/19 05/29/19 Flexpen U-100 Insulin] insulin aspart U-100 [Novolog See Rx Instructions .ROUTE .COMPLEX 05/29/19 05/29/19 Flexpen U-100 Insulin] levetiracetam 500 mg PO QAM 05/29/19 05/29/19 levetiracetam 750 mg PO BEDTIME 05/29/19 05/29/19 potassium chloride 20 meq PO BID 05/29/19 05/29/19 Previous Rx's Medication Instructions Recorded ondansetron HCl 4 mg tablet 4 mg PO Q6H PRN #30 tab 05/29/18 pen needle, diabetic 30 gauge x #100 each 11/20/1809/18 acetaminophen 325 mg tablet 650 mg PO Q4H PRN #90 tab 12/12/18 meclizine 25 mg tablet 25 mg PO Q6H PRN #90 tab 12/12/18 lancets 30 gauge #100 each 02/02/19 aspirin 81 mg tablet,delayed 81 mg PO DAILY #30 tab 03/02/19 release cholecalciferol (vitamin D3) 25 1,000 unit PO DAILY #90 cap 03/02/19 mcg (1,000 unit) capsule citalopram 20 mg tablet 20 mg PO DAILY #90 tab 03/02/19 hydrocortisone acetate 1 % topical 1 applic TOPICAL Q8H PRN #57 gram 03/02/19 cream magnesium oxide 400 mg (241.3 mg 400 mg PO BID #60 tab 03/02/19 magnesium) tablet melatonin 3 mg tablet 6 mg PO BEDTIME #180 tab 03/02/19 midodrine 5 mg tablet 5 mg PO BID #30 tab 03/02/19 omeprazole 20 mg capsule,delayed 20 mg PO BID #180 cap 03/02/19 release polyethylene glycol 3350 17 17 gram PO DAILY #510 gram 03/19/19 gram/dose oral powder nystatin 100,000 unit/gram topical 1 applic TOPICAL PRN PRN #30 gram 03/23/19 powder Allergies Allergy/AdvReac Type Severity Reaction Status Date / Time adhesive tape Allergy Unknown Verified 01/14/19 20:39 Penicillins Allergy Unknown Verified 01/14/19 20:39 silicone Allergy Unknown Verified 01/14/19 20:39 zonisamide Allergy Unknown Verified 01/14/19 20:39 escitalopram AdvReac Unknown Verified 01/14/19 20:39 lamotrigine AdvReac Unknown Verified 01/14/19 20:39 Review of Systems <HARI Neal - Last Filed: 05/29/19 22:16> Review of Systems Narrative: General: Denies fever, chills, (+) fatigue, malaise, sweats. HEENT: Denies sinus pain, ear pain, sore throat, difficulty swallowing, dizziness. Respiratory: Reports dyspnea, (-) cough, wheezing, hemoptysis, sputum. Cardiovascular: Denies chest pain, palpitations, orthopnea, edema. Gastrointestinal: Denies nausea, (+) vomiting, abdominal pain, (+) diarrhea, constipation, melena. : Denies dysuria, frequency, incontinence, hematuria, urinary retention. Musculoskeletal: Denies weakness, joint pain or bony pain. Skin: Denies rash, skin lesions, or other. Neurologic: Denies weakness, headache, numbness, change in speech, confusion, seizures, incoordination. Psychiatric: No concerning psychosocial issues. 12-point review of systems is negative except for those stated above. Patient History <HARI Neal - Last Filed: 05/29/19 22:16> Medical History Anxiety (Chronic) Chicken pox (Resolved ~1966) Cognitive dysfunction (Chronic) Depression (Chronic) Diabetes mellitus type 2, insulin dependent (Chronic ~2007) Fecal incontinence (Chronic) Fractures (Resolved ~2017) GERD without esophagitis (Chronic) Hearing loss (Chronic ~2016) High serum lactate (Chronic) Measles (Resolved ~1963) Oligodendroglioma (Chronic ~2011) Orthostatic hypotension (Chronic) Other and unspecified hyperlipidemia (Chronic) Ovarian cyst (Chronic ~1983) Seizure disorder (Chronic) Urinary incontinence (Chronic ~2015) Vision disorder (Chronic) Surgical History Anesthesia (Resolved) H/O pelvic surgery (Inactive ~2016) History of cholecystectomy (Resolved ~1987) History of hysterectomy (Resolved ~1988) Family History Father Cancer Diabetes mellitus Hypertension Sister Hypertension Sister Cancer Grandfather Heart disease Grandmother Heart disease Social History marital status: number of children: 3 household members: caregiver and other lives independently: Yes caregiver/support person: Yes housing: assisted living facility pets and animals: No education level: high school occupational status: disabled Previous occupational history: [employer] in [place] duncan/shinto: None leisure activities: games (Bingo) and other (Movies, TV) Smoking Status: Former smoker Tobacco: How many years used: 2 Smokeless tobacco user: other (Cigarettes) quit status: quit date established (2010) second hand exposure: No alcohol intake: never substance use type: does not use Smoking Status: Former smoker alcohol intake frequency: holidays/special occasions only Substance Use Type: does not use Exam <HARI Neal - Last Filed: 05/29/19 22:16> Narrative Exam Narrative: GEN: Obtundent, aroused by touch and verbal command. Oriented x place and person, ill appearing and pale. Head: Normal cephalic, atraumatic. No scalp or temporal tenderness, palpable mass or rash. EYES: Pupils are equal, round, and reactive to light and accommodation. Extraocular muscles are intact bilaterally. There is no subconjunctival hemorrhage, exudate and sclera non-icteric. ENT: Bilateral auditory canals and tympanic membranes clear. Hearing grossly intact. Nose without bleeding, purulent discharge or deviation. Facial sinuses nontender to palpate. Periorbital edema. Mucous membrane severely dry. Throat without erythema, tonsillar hypertrophy or exudate. Uvula in midline, airway patent. Neck: Trachea in midline. No JVD, non-tender without lymphadenopathy. No masses or thyroid megaly. Supple, non-tender and no meningeal signs. CARDIAC: Normal regular tachy rate and rhythm without murmurs, gallops, or rubs. No chest wall tenderness. 2+ peripheral edema, cyanosis or pallor. Capillary refill is less than 2 seconds. RESPIRATORY: Lungs are clear to decreased to auscultate in all lobes. No cough, wheezes, rales, or rhonchi. No stridor, respiratory distress, increase work of breathing, or accessary muscle used. ABD: Abdomen soft, nontender, obese and distended. No guarding or rebound tenderness to palpate. Bowel sounds are normal in all 4 quadrants. There is no palpable masses or organomegaly. SKIN: Warm, dry. No erythema, lesions or rash over visible areas. NEUROLOGICAL: No facial droops, dysphasia. PSYCHIATRIC: No hallucinations, abnormal affect or abnormal behaviors during the examination. Initial Vital Signs Initial Vital Signs: Vital Signs Temperature 98.6 F 05/29/19 14:05 Pulse Rate 118 H 05/29/19 14:05 Respiratory Rate 05/29/19 14:05 Blood Pressure 96/78 05/29/19 14:05 Pulse Oximetry 98 05/29/19 14:05 <Naveen Lipscomb MD - Last Filed: 06/01/19 20:56> Initial Vital Signs Initial Vital Signs: Vital Signs Temperature 98.6 F 05/29/19 14:05 Pulse Rate 118 H 05/29/19 14:05 Respiratory Rate 23 05/29/19 14:05 Blood Pressure 96/78 05/29/19 14:05 Pulse Oximetry 98 05/29/19 14:05 Scores <Leonidas MojicaHARI - Last Filed: 05/29/19 22:16> GCS Janusz coma scale eye opening: To sound [place] coma scale verbal response: Orientated (Place and self) [place] coma scale motor response: Obey commands [place] coma scale total score: 14 Course <Leonidas MojicaHARI - Last Filed: 05/29/19 22:16> Orders Ordered: Acetaminophen (Tylenol) 650 mg CO Q4HR PRN PRN Reason: Fever/Mild Pain (1-3) Artificial Tears (Artificial Tears) 1 drops EYE-BOTH Q2HR PRN PRN Reason: Dry Eye(s) Diphenhydramine HCl (Benadryl) 25 mg IV Q4HR PRN PRN Reason: Itching Last Admin: 06/01/19 09:09 Dose: 25 mg Documented by: ALFONZO Fentanyl (Sublimaze) 25 mcg IV Q15MIN [facility] Last Admin: 05/31/19 15:57 Dose: 25 mcg Documented by: Admin: 05/31/19 15:14 Dose: 25 mcg Documented by: TARYN Sodium Chloride (Normal Saline 0.9%) 250 mls @ 21 mls/hr IV Q24H PRN PRN Reason: Flush Last Admin: 05/31/19 22:26 Dose: 21 mls/hr Documented by: TARYN Levofloxacin (Levaquin) 250 mg in 50 mls @ 100 mls/hr IV Q24H [facility] Last Infusion: 06/01/19 10:10 Dose: 0 mls/hr Documented by: Admin: 06/01/19 09:10 Dose: 100 mls/hr Documented by: ALFONZO Levetiracetam 750 mg/ Sodium (Chloride) 107.5 mls @ 430 mls/hr IV Q12HR [facility] Lorazepam (Ativan) 1 mg IV Q1HR PRN PRN Reason: Agitation/Anxiety Morphine Sulfate (Morphine Sulfate) 5 mg IV Q15MIN PRN PRN Reason: comfort care Last Admin: 06/01/19 18:27 Dose: 5 mg Documented by: Admin: 06/01/19 12:52 Dose: 5 mg Documented by: Admin: 06/01/19 09:09 Dose: 5 mg Documented by: Admin: 06/01/19 06:14 Dose: 5 mg Documented by: Admin: 06/01/19 02:22 Dose: 5 mg Documented by: Admin: 06/01/19 01:15 Dose: 5 mg Documented by: Admin: 05/31/19 16:44 Dose: 5 mg Documented by: TARYN Naloxone HCl (Narcan) 0.2 mg IV Q2MIN PRN PRN Reason: Opiate Reversal Nystatin (Nystop) 1 applic TOP PRN PRN PRN Reason: Rash Last Admin: 05/30/19 09:09 Dose: 1 applic Documented by: JESSICA Ondansetron HCl (Zofran) 4 mg IV Q8HR PRN PRN Reason: Nausea And Vomiting Scopolamine (Transderm-Scop) 1 patch TOP Q72H [facility] Last Admin: 06/01/19 06:12 Dose: 1 patch Documented by: DANNY Discontinued Medications Acetaminophen (Tylenol) 650 mg PO Q4H PRN PRN Reason: Fever Or Pain Last Admin: 05/30/19 12:14 Dose: 650 mg Documented by: JESSICA Acetaminophen (Tylenol) 650 mg CO Q6HR PRN PRN Reason: Fever/Mild Pain (1-3) Last Admin: 05/31/19 10:56 Dose: 650 mg Documented by: JESSICA Aspirin (Aspirin Ec) 81 mg PO DAILY [facility] Last Admin: 06/01/19 09:10 Dose: Not Given Documented by: Admin: 05/31/19 12:28 Dose: Not Given Documented by: Admin: 05/30/19 09:09 Dose: 81 mg Documented by: JESSICA Atorvastatin Calcium (Lipitor) 10 mg PO BEDTIME [facility] Last Admin: 05/31/19 19:54 Dose: Not Given Documented by: Admin: 05/30/19 21:40 Dose: 10 mg Documented by: ROSSANA Citalopram Hydrobromide (Celexa) 20 mg PO DAILY [facility] Last Admin: 06/01/19 09:11 Dose: Not Given Documented by: Admin: 05/31/19 12:28 Dose: Not Given Documented by: Admin: 05/30/19 09:09 Dose: 20 mg Documented by: JESSICA Enoxaparin Sodium (Lovenox) 40 mg SUBCUT DAILY [facility] Last Admin: 05/31/19 12:34 Dose: 40 mg Documented by: JESSICA Fentanyl (Sublimaze) 25 mcg IV NOW ONE Stop: 05/31/19 14:59 Last Admin: 05/31/19 15:02 Dose: 25 mcg Documented by: ALFONZO Furosemide (Lasix) 40 mg PO DAILY [facility] Last Admin: 05/31/19 12:29 Dose: Not Given Documented by: Admin: 05/30/19 09:09 Dose: 40 mg Documented by: JESSICA Heparin Sodium (Porcine) (Heparin) 7,500 unit SUBCUT Q8H [facility] Last Admin: 06/01/19 09:09 Dose: 7,500 unit Documented by: ALFONZO Hydrocortisone (Solu-Cortef) 200 mg IV NOW ONE Stop: 05/31/19 14:29 Last Admin: 05/31/19 14:46 Dose: 200 mg Documented by: ALFONZO Hydrocortisone (Solu-Cortef) 100 mg IV Q6HR [facility] Last Admin: 06/01/19 06:12 Dose: 100 mg Documented by: Admin: 06/01/19 00:30 Dose: 100 mg Documented by: Admin: 05/31/19 18:41 Dose: 100 mg Documented by: TARYN Sodium Chloride (Normal Saline 0.9%) 1,000 mls @ 1,000 mls/hr IV BOLUS ONE Stop: 05/29/19 15:09 Last Infusion: 05/29/19 16:30 Dose: 0 mls/hr Documented by: Admin: 05/29/19 15:03 Dose: 1,000 mls/hr Documented by: ASHELY Sodium Chloride (Normal Saline 0.9%) 1,000 mls @ 1,000 mls/hr IV BOLUS ONE Stop: 05/29/19 16:56 Last Infusion: 05/29/19 17:55 Dose: 0 mls/hr Documented by: Admin: 05/29/19 16:28 Dose: 1,000 mls/hr Documented by: ASHELY Ceftriaxone Sodium/Dextrose (Rocephin) 1 gm in 50 mls @ 100 mls/hr IV NOW ONE Stop: 05/29/19 16:27 Last Infusion: 05/29/19 16:59 Dose: 0 mls/hr Documented by: Admin: 05/29/19 16:29 Dose: 100 mls/hr Documented by: ASHELY Magnesium Sulfate (Magnesium Sulfate) 4 gm in 100 mls @ 50 mls/hr IV NOW ONE Stop: 05/29/19 23:13 Last Admin: 05/29/19 22:24 Dose: 50 mls/hr Documented by: ANNIE Cosigned by: LATESHA Levetiracetam 1,000 mg/ Sodium (Chloride) 110 mls @ 440 mls/hr IV NOW ONE Stop: 05/29/19 21:25 Last Admin: 05/29/19 22:09 Dose: 440 mls/hr Documented by: ANNIE Levetiracetam 750 mg/ Sodium (Chloride) 107.5 mls @ 430 mls/hr IV Q12H [facility] Last Infusion: 05/30/19 14:47 Dose: 0 mls/hr Documented by: Admin: 05/30/19 12:09 Dose: 430 mls/hr Documented by: JESSICA Ceftriaxone Sodium/Dextrose (Rocephin) 1 gm in 50 mls @ 100 mls/hr IV Q24H [facility] Last Infusion: 05/31/19 19:54 Dose: 0 mls/hr Documented by: Admin: 05/31/19 17:46 Dose: 100 mls/hr Documented by: Infusion: 05/30/19 17:05 Dose: 0 mls/hr Documented by: Admin: 05/30/19 16:32 Dose: 100 mls/hr Documented by: ROSSANA Vancomycin HCl/Dextrose (Vancomycin) 1,500 mg in 300 mls @ 120 mls/hr IV Q12H [facility] Last Admin: 05/31/19 16:00 Dose: Not Given Documented by: Infusion: 05/31/19 12:32 Dose: 0 mls/hr Documented by: Admin: 05/31/19 02:43 Dose: 200 mls/hr Documented by: Infusion: 05/30/19 16:15 Dose: 0 mls/hr Documented by: Admin: 05/30/19 14:43 Dose: 200 mls/hr Documented by: JESSICA Sodium Chloride (Normal Saline 0.9%) 1,000 mls @ 150 mls/hr IV CONT [facility] Last Admin: 05/31/19 10:56 Dose: 100 mls/hr Documented by: Infusion: 05/31/19 03:49 Dose: 100 mls/hr Documented by: Admin: 05/30/19 17:49 Dose: 100 mls/hr Documented by: GINNY Potassium Chloride 40 meq/ (Sodium Chloride) 520 mls @ 130 mls/hr IV NOW ONE Stop: 05/31/19 01:05 Last Admin: 05/30/19 22:15 Dose: 130 mls/hr Documented by: GINNY Cosigned by: RM Levetiracetam 750 mg/ Sodium (Chloride) 107.5 mls @ 430 mls/hr IV Q12H [facility] Last Admin: 05/31/19 02:26 Dose: 430 mls/hr Documented by: ANITA Levetiracetam 750 mg/ Sodium (Chloride) 107.5 mls @ 430 mls/hr IV Q12H [facility] Last Infusion: 06/01/19 01:30 Dose: 0 mls/hr Documented by: Admin: 06/01/19 01:15 Dose: 430 mls/hr Documented by: Admin: 05/31/19 16:00 Dose: Not Given Documented by: JESSICA Sodium Chloride (Normal Saline 0.9%) 1,000 mls @ 1,000 mls/hr IV BOLUS ONE Stop: 05/31/19 12:14 Last Infusion: 05/31/19 16:46 Dose: 0 mls/hr Documented by: Admin: 05/31/19 11:30 Dose: 1,000 mls/hr Documented by: JESSICA Dopamine HCl/Dextrose (Dopamine 400 Mg-D5w 250 Ml) 400 mg in 250 mls @ 22.969 mls/hr IV TITRATE [facility]; Protocol Last Titration: 05/31/19 15:58 Dose: 0 mcg/kg/min, 0 mls/hr Documented by: Titration: 05/31/19 15:00 Dose: 50 mcg/kg/min, 229.688 mls/hr Documented by: Titration: 05/31/19 15:00 Dose: 22.42 mcg/kg/min, 103 mls/hr Documented by: Titration: 05/31/19 14:38 Dose: 7.84 mcg/kg/min, 36 mls/hr Documented by: Admin: 05/31/19 14:30 Dose: 5 mcg/kg/min, 22.969 mls/hr Documented by: TARYN Sodium Chloride (Normal Saline 0.9%) 1,000 mls @ 1,000 mls/hr IV BOLUS ONE Stop: 05/31/19 15:28 Last Admin: 05/31/19 16:45 Dose: Not Given Documented by: TARYN Norepinephrine Bitartrate 4 mg (/ Dextrose) 254 mls @ 30.48 mls/hr IV TITRATE [facility]; Protocol Last Titration: 05/31/19 15:58 Dose: 0 mcg/min, 0 mls/hr Documented by: Titration: 05/31/19 15:45 Dose: 40 mcg/min, 152.4 mls/hr Documented by: Titration: 05/31/19 15:31 Dose: 30 mcg/min, 114.3 mls/hr Documented by: Titration: 05/31/19 15:22 Dose: 20 mcg/min, 76.2 mls/hr Documented by: Admin: 05/31/19 15:10 Dose: 10 mcg/min, 38.1 mls/hr Documented by: TARYN Vancomycin HCl/Dextrose (Vancomycin) 1,500 mg in 300 mls @ 120 mls/hr IV Q24H [facility] Last Infusion: 06/01/19 05:27 Dose: 0 mls/hr Documented by: Admin: 06/01/19 02:23 Dose: 120 mls/hr Documented by: DANNY Insulin Aspart (Novolog Flexpen) 15 unit SUBCUT BID [facility] Last Admin: 06/01/19 09:11 Dose: Not Given Documented by: Admin: 05/31/19 19:55 Dose: Not Given Documented by: Admin: 05/31/19 12:29 Dose: Not Given Documented by: Admin: 05/30/19 20:37 Dose: Not Given Documented by: Admin: 05/30/19 12:50 Dose: Not Given Documented by: JESSICA Insulin Aspart (Novolog Flexpen) 0 unit SUBCUT Q6H [facility]; Protocol Last Admin: 05/31/19 14:41 Dose: Not Given Documented by: Admin: 05/31/19 11:01 Dose: 7 unit Documented by: JESSICA Cosigned by: WILMER Admin: 05/31/19 02:22 Dose: 2 unit Documented by: ANITA Cosigned by: LUIS FELIPE Admin: 05/30/19 21:44 Dose: 5 unit Documented by: ROSSANA Cosigned by: GINNY Admin: 05/30/19 14:42 Dose: 4 unit Documented by: JESSICA Cosigned by: BOB Admin: 05/30/19 09:12 Dose: 4 unit Documented by: JESSICA Cosigned by: FREDERICK Insulin Aspart (Novolog Flexpen) 0 unit SUBCUT Q6H [facility]; Protocol Last Admin: 06/01/19 06:13 Dose: 10 unit Documented by: DANNY Cosigned by: DAVON Admin: 06/01/19 00:30 Dose: 10 unit Documented by: DANNY Cosigned by: AMPARO Admin: 05/31/19 18:51 Dose: 10 unit Documented by: TARYN Cosigned by: LETITIA Insulin Glargine (Lantus Solostar (Pen)) 20 unit SUBCUT BEDTIME [facility] Last Admin: 05/30/19 21:42 Dose: 20 unit Documented by: ROSSANA Cosigned by: GINNY Admin: 05/29/19 21:11 Dose: 20 unit Documented by: ANNIE Cosigned by: LATESHA Insulin Glargine (Lantus Solostar (Pen)) 30 unit SUBCUT BEDTIME [facility] Last Admin: 05/31/19 21:02 Dose: 30 unit Documented by: TARYN Cosigned by: LETITIA Insulin Human Regular (Humulin R) 10 unit SUBCUT NOW ONE Stop: 05/29/19 16:58 Last Admin: 05/29/19 17:52 Dose: 10 unit Documented by: ASHELY Cosigned by: JOSÉ Magnesium Oxide (Mag Ox) 400 mg PO BID [facility] Last Admin: 05/31/19 20:58 Dose: Not Given Documented by: Admin: 05/31/19 12:30 Dose: Not Given Documented by: Admin: 05/30/19 21:46 Dose: 400 mg Documented by: Admin: 05/30/19 09:09 Dose: 400 mg Documented by: JESSICA Melatonin (Melatonin) 6 mg PO BEDTIME [facility] Last Admin: 05/31/19 20:58 Dose: Not Given Documented by: Admin: 05/30/19 21:40 Dose: 6 mg Documented by: ROSSANA Methylprednisolone (Solu-Medrol 125 Mg Vial) 125 mg IV NOW ONE Stop: 06/01/19 08:51 Last Admin: 06/01/19 09:16 Dose: 125 mg Documented by: AFLONZO Midodrine (Midodrine) 5 mg PO BID [facility] Last Admin: 05/31/19 20:58 Dose: Not Given Documented by: Admin: 05/31/19 12:30 Dose: Not Given Documented by: Admin: 05/30/19 21:40 Dose: 5 mg Documented by: Admin: 05/30/19 09:22 Dose: 5 mg Documented by: JESSICA Pantoprazole Sodium (Protonix) 20 mg PO 0600,2100 [facility] Last Admin: 06/01/19 06:15 Dose: Not Given Documented by: Admin: 05/31/19 20:58 Dose: Not Given Documented by: Admin: 05/31/19 05:58 Dose: Not Given Documented by: Admin: 05/30/19 21:47 Dose: 20 mg Documented by: Admin: 05/30/19 09:22 Dose: 20 mg Documented by: JESSICA Polyethylene Glycol (Miralax) 17 gm PO DAILY [facility] Last Admin: 06/01/19 09:11 Dose: Not Given Documented by: Admin: 05/31/19 12:30 Dose: Not Given Documented by: Admin: 05/30/19 09:09 Dose: 17 gm Documented by: JESSICA Potassium Chloride (Klor-Con M20) 20 meq PO BID [facility] Last Admin: 06/01/19 09:11 Dose: Not Given Documented by: Admin: 05/31/19 20:58 Dose: Not Given Documented by: Admin: 05/31/19 12:30 Dose: Not Given Documented by: Admin: 05/30/19 21:46 Dose: 20 meq Documented by: Admin: 05/30/19 09:09 Dose: 20 meq Documented by: JESSICA Sennosides (Senna) 17.2 mg PO BID [facility] Last Admin: 06/01/19 09:11 Dose: Not Given Documented by: Admin: 05/31/19 20:58 Dose: Not Given Documented by: Admin: 05/31/19 12:30 Dose: Not Given Documented by: Admin: 05/30/19 21:41 Dose: 17.2 mg Documented by: Admin: 05/30/19 09:09 Dose: 17.2 mg Documented by: JESSICA Vancomycin HCl (Vancomycin Trough) 1 [place] [facility] [place] [address] [facility] Stop: 06/01/19 01:31 Vancomycin HCl (Vancomycin Trough) 1 [place] [facility] [place] [address] [facility] Stop: 06/02/19 01:31 Vital Signs Vital signs: Vital Signs - 8 hr 05/29/19 14:05 05/29/19 16:32 05/29/19 17:34 Temperature 98.6 F Pulse Rate 118 H 109 H 102 H Respiratory Rate 23 19 17 Blood Pressure 96/78 Blood Pressure [Right Arm] 132/80 115/60 Pulse Oximetry 98 100 96 <Naveen Lipscomb MD - Last Filed: 06/01/19 20:56> Orders Ordered: Acetaminophen (Tylenol) 650 mg CO Q4HR PRN PRN Reason: Fever/Mild Pain (1-3) Artificial Tears (Artificial Tears) 1 drops EYE-BOTH Q2HR PRN PRN Reason: Dry Eye(s) Diphenhydramine HCl (Benadryl) 25 mg IV Q4HR PRN PRN Reason: Itching Last Admin: 06/01/19 09:09 Dose: 25 mg Documented by: ALFONZO Fentanyl (Sublimaze) 25 mcg IV Q15MIN [facility] Last Admin: 05/31/19 15:57 Dose: 25 mcg Documented by: Admin: 05/31/19 15:14 Dose: 25 mcg Documented by: TARYN Sodium Chloride (Normal Saline 0.9%) 250 mls @ 21 mls/hr IV Q24H PRN PRN Reason: Flush Last Admin: 05/31/19 22:26 Dose: 21 mls/hr Documented by: TARYN Levofloxacin (Levaquin) 250 mg in 50 mls @ 100 mls/hr IV Q24H [facility] Last Infusion: 06/01/19 10:10 Dose: 0 mls/hr Documented by: Admin: 06/01/19 09:10 Dose: 100 mls/hr Documented by: ALFONZO Levetiracetam 750 mg/ Sodium (Chloride) 107.5 mls @ 430 mls/hr IV Q12HR [facility] Lorazepam (Ativan) 1 mg IV Q1HR PRN PRN Reason: Agitation/Anxiety Morphine Sulfate (Morphine Sulfate) 5 mg IV Q15MIN PRN PRN Reason: comfort care Last Admin: 06/01/19 18:27 Dose: 5 mg Documented by: Admin: 06/01/19 12:52 Dose: 5 mg Documented by: Admin: 06/01/19 09:09 Dose: 5 mg Documented by: Admin: 06/01/19 06:14 Dose: 5 mg Documented by: Admin: 06/01/19 02:22 Dose: 5 mg Documented by: Admin: 06/01/19 01:15 Dose: 5 mg Documented by: Admin: 05/31/19 16:44 Dose: 5 mg Documented by: TARYN Naloxone HCl (Narcan) 0.2 mg IV Q2MIN PRN PRN Reason: Opiate Reversal Nystatin (Nystop) 1 applic TOP PRN PRN PRN Reason: Rash Last Admin: 05/30/19 09:09 Dose: 1 applic Documented by: JESSICA Ondansetron HCl (Zofran) 4 mg IV Q8HR PRN PRN Reason: Nausea And Vomiting Scopolamine (Transderm-Scop) 1 patch TOP Q72H [facility] Last Admin: 06/01/19 06:12 Dose: 1 patch Documented by: DANNY Discontinued Medications Acetaminophen (Tylenol) 650 mg PO Q4H PRN PRN Reason: Fever Or Pain Last Admin: 05/30/19 12:14 Dose: 650 mg Documented by: JESSICA Acetaminophen (Tylenol) 650 mg CO Q6HR PRN PRN Reason: Fever/Mild Pain (1-3) Last Admin: 05/31/19 10:56 Dose: 650 mg Documented by: JESSICA Aspirin (Aspirin Ec) 81 mg PO DAILY [facility] Last Admin: 06/01/19 09:10 Dose: Not Given Documented by: Admin: 05/31/19 12:28 Dose: Not Given Documented by: Admin: 05/30/19 09:09 Dose: 81 mg Documented by: JESSICA Atorvastatin Calcium (Lipitor) 10 mg PO BEDTIME [facility] Last Admin: 05/31/19 19:54 Dose: Not Given Documented by: Admin: 05/30/19 21:40 Dose: 10 mg Documented by: ROSSANA Citalopram Hydrobromide (Celexa) 20 mg PO DAILY [facility] Last Admin: 06/01/19 09:11 Dose: Not Given Documented by: Admin: 05/31/19 12:28 Dose: Not Given Documented by: Admin: 05/30/19 09:09 Dose: 20 mg Documented by: JESSICA Enoxaparin Sodium (Lovenox) 40 mg SUBCUT DAILY [facility] Last Admin: 05/31/19 12:34 Dose: 40 mg Documented by: JESSICA Fentanyl (Sublimaze) 25 mcg IV NOW ONE Stop: 05/31/19 14:59 Last Admin: 05/31/19 15:02 Dose: 25 mcg Documented by: ALFONZO Furosemide (Lasix) 40 mg PO DAILY [facility] Last Admin: 05/31/19 12:29 Dose: Not Given Documented by: Admin: 05/30/19 09:09 Dose: 40 mg Documented by: JESSICA Heparin Sodium (Porcine) (Heparin) 7,500 unit SUBCUT Q8H [facility] Last Admin: 06/01/19 09:09 Dose: 7,500 unit Documented by: ALFONZO Hydrocortisone (Solu-Cortef) 200 mg IV NOW ONE Stop: 05/31/19 14:29 Last Admin: 05/31/19 14:46 Dose: 200 mg Documented by: ALFONZO Hydrocortisone (Solu-Cortef) 100 mg IV Q6HR [facility] Last Admin: 06/01/19 06:12 Dose: 100 mg Documented by: Admin: 06/01/19 00:30 Dose: 100 mg Documented by: Admin: 05/31/19 18:41 Dose: 100 mg Documented by: TARYN Sodium Chloride (Normal Saline 0.9%) 1,000 mls @ 1,000 mls/hr IV BOLUS ONE Stop: 05/29/19 15:09 Last Infusion: 05/29/19 16:30 Dose: 0 mls/hr Documented by: Admin: 05/29/19 15:03 Dose: 1,000 mls/hr Documented by: ASHELY Sodium Chloride (Normal Saline 0.9%) 1,000 mls @ 1,000 mls/hr IV BOLUS ONE Stop: 05/29/19 16:56 Last Infusion: 05/29/19 17:55 Dose: 0 mls/hr Documented by: Admin: 05/29/19 16:28 Dose: 1,000 mls/hr Documented by: ASHELY Ceftriaxone Sodium/Dextrose (Rocephin) 1 gm in 50 mls @ 100 mls/hr IV NOW ONE Stop: 05/29/19 16:27 Last Infusion: 05/29/19 16:59 Dose: 0 mls/hr Documented by: Admin: 05/29/19 16:29 Dose: 100 mls/hr Documented by: ASHELY Magnesium Sulfate (Magnesium Sulfate) 4 gm in 100 mls @ 50 mls/hr IV NOW ONE Stop: 05/29/19 23:13 Last Admin: 05/29/19 22:24 Dose: 50 mls/hr Documented by: ANNIE Cosigned by: LATESHA Levetiracetam 1,000 mg/ Sodium (Chloride) 110 mls @ 440 mls/hr IV NOW ONE Stop: 05/29/19 21:25 Last Admin: 05/29/19 22:09 Dose: 440 mls/hr Documented by: ANNIE Levetiracetam 750 mg/ Sodium (Chloride) 107.5 mls @ 430 mls/hr IV Q12H [facility] Last Infusion: 05/30/19 14:47 Dose: 0 mls/hr Documented by: Admin: 05/30/19 12:09 Dose: 430 mls/hr Documented by: JESSICA Ceftriaxone Sodium/Dextrose (Rocephin) 1 gm in 50 mls @ 100 mls/hr IV Q24H [facility] Last Infusion: 05/31/19 19:54 Dose: 0 mls/hr Documented by: Admin: 05/31/19 17:46 Dose: 100 mls/hr Documented by: Infusion: 05/30/19 17:05 Dose: 0 mls/hr Documented by: [email or web address].[email or web address] Admin: 05/30/19 16:32 Dose: 100 mls/hr Documented by: ROSSANA Vancomycin HCl/Dextrose (Vancomycin) 1,500 mg in 300 mls @ 120 mls/hr IV Q12H [facility] Last Admin: 05/31/19 16:00 Dose: Not Given Documented by: Infusion: 05/31/19 12:32 Dose: 0 mls/hr Documented by: Admin: 05/31/19 02:43 Dose: 200 mls/hr Documented by: Infusion: 05/30/19 16:15 Dose: 0 mls/hr Documented by: Admin: 05/30/19 14:43 Dose: 200 mls/hr Documented by: JESSICA Sodium Chloride (Normal Saline 0.9%) 1,000 mls @ 150 mls/hr IV CONT [facility] Last Admin: 05/31/19 10:56 Dose: 100 mls/hr Documented by: Infusion: 05/31/19 03:49 Dose: 100 mls/hr Documented by: Admin: 05/30/19 17:49 Dose: 100 mls/hr Documented by: GINNY Potassium Chloride 40 meq/ (Sodium Chloride) 520 mls @ 130 mls/hr IV NOW ONE Stop: 05/31/19 01:05 Last Admin: 05/30/19 22:15 Dose: 130 mls/hr Documented by: GINNY Cosigned by: RM Levetiracetam 750 mg/ Sodium (Chloride) 107.5 mls @ 430 mls/hr IV Q12H [facility] Last Admin: 05/31/19 02:26 Dose: 430 mls/hr Documented by: ANITA Levetiracetam 750 mg/ Sodium (Chloride) 107.5 mls @ 430 mls/hr IV Q12H [facility] Last Infusion: 06/01/19 01:30 Dose: 0 mls/hr Documented by: Admin: 06/01/19 01:15 Dose: 430 mls/hr Documented by: Admin: 05/31/19 16:00 Dose: Not Given Documented by: JESSICA Sodium Chloride (Normal Saline 0.9%) 1,000 mls @ 1,000 mls/hr IV BOLUS ONE Stop: 05/31/19 12:14 Last Infusion: 05/31/19 16:46 Dose: 0 mls/hr Documented by: Admin: 05/31/19 11:30 Dose: 1,000 mls/hr Documented by: JESSICA Dopamine HCl/Dextrose (Dopamine 400 Mg-D5w 250 Ml) 400 mg in 250 mls @ 22.969 mls/hr IV TITRATE [facility]; Protocol Last Titration: 05/31/19 15:58 Dose: 0 mcg/kg/min, 0 mls/hr Documented by: Titration: 05/31/19 15:00 Dose: 50 mcg/kg/min, 229.688 mls/hr Documented by: Titration: 05/31/19 15:00 Dose: 22.42 mcg/kg/min, 103 mls/hr Documented by: Titration: 05/31/19 14:38 Dose: 7.84 mcg/kg/min, 36 mls/hr Documented by: Admin: 05/31/19 14:30 Dose: 5 mcg/kg/min, 22.969 mls/hr Documented by: TARYN Sodium Chloride (Normal Saline 0.9%) 1,000 mls @ 1,000 mls/hr IV BOLUS ONE Stop: 05/31/19 15:28 Last Admin: 05/31/19 16:45 Dose: Not Given Documented by: TARYN Norepinephrine Bitartrate 4 mg (/ Dextrose) 254 mls @ 30.48 mls/hr IV TITRATE [facility]; Protocol Last Titration: 05/31/19 15:58 Dose: 0 mcg/min, 0 mls/hr Documented by: Titration: 05/31/19 15:45 Dose: 40 mcg/min, 152.4 mls/hr Documented by: Titration: 05/31/19 15:31 Dose: 30 mcg/min, 114.3 mls/hr Documented by: Titration: 05/31/19 15:22 Dose: 20 mcg/min, 76.2 mls/hr Documented by: Admin: 05/31/19 15:10 Dose: 10 mcg/min, 38.1 mls/hr Documented by: TARYN Vancomycin HCl/Dextrose (Vancomycin) 1,500 mg in 300 mls @ 120 mls/hr IV Q24H [facility] Last Infusion: 06/01/19 05:27 Dose: 0 mls/hr Documented by: Admin: 06/01/19 02:23 Dose: 120 mls/hr Documented by: DANNY Insulin Aspart (Novolog Flexpen) 15 unit SUBCUT BID [facility] Last Admin: 06/01/19 09:11 Dose: Not Given Documented by: Admin: 05/31/19 19:55 Dose: Not Given Documented by: Admin: 05/31/19 12:29 Dose: Not Given Documented by: Admin: 05/30/19 20:37 Dose: Not Given Documented by: Admin: 05/30/19 12:50 Dose: Not Given Documented by: JESSICA Insulin Aspart (Novolog Flexpen) 0 unit SUBCUT Q6H [facility]; Protocol Last Admin: 05/31/19 14:41 Dose: Not Given Documented by: Admin: 05/31/19 11:01 Dose: 7 unit Documented by: JESSICA Cosigned by: WILMER Admin: 05/31/19 02:22 Dose: 2 unit Documented by: ANITA Cosigned by: LUIS FELIPE Admin: 05/30/19 21:44 Dose: 5 unit Documented by: ROSSANA Cosigned by: GINNY Admin: 05/30/19 14:42 Dose: 4 unit Documented by: JESSICA Cosigned by: BOB Admin: 05/30/19 09:12 Dose: 4 unit Documented by: JESSICA Palmaigned by: FREDERICK Insulin Aspart (Novolog Flexpen) 0 unit SUBCUT Q6H [facility]; Protocol Last Admin: 06/01/19 06:13 Dose: 10 unit Documented by: DANNY Cosigned by: DAVON Admin: 06/01/19 00:30 Dose: 10 unit Documented by: DANNY Cosigned by: AMPARO Admin: 05/31/19 18:51 Dose: 10 unit Documented by: TARYN Cosigned by: LETITIA Insulin Glargine (Lantus Solostar (Pen)) 20 unit SUBCUT BEDTIME [facility] Last Admin: 05/30/19 21:42 Dose: 20 unit Documented by: ROSSANA Cosigned by: GINNY Admin: 05/29/19 21:11 Dose: 20 unit Documented by: ANNIE Cosigned by: LATESHA Insulin Glargine (Lantus Solostar (Pen)) 30 unit SUBCUT BEDTIME [facility] Last Admin: 05/31/19 21:02 Dose: 30 unit Documented by: TARYN Cosigned by: LETITIA Insulin Human Regular (Humulin R) 10 unit SUBCUT NOW ONE Stop: 05/29/19 16:58 Last Admin: 05/29/19 17:52 Dose: 10 unit Documented by: ASHELY Cosigned by: JOSÉ Magnesium Oxide (Mag Ox) 400 mg PO BID [facility] Last Admin: 05/31/19 20:58 Dose: Not Given Documented by: Admin: 05/31/19 12:30 Dose: Not Given Documented by: Admin: 05/30/19 21:46 Dose: 400 mg Documented by: Admin: 05/30/19 09:09 Dose: 400 mg Documented by: JESSICA Melatonin (Melatonin) 6 mg PO BEDTIME [facility] Last Admin: 05/31/19 20:58 Dose: Not Given Documented by: Admin: 05/30/19 21:40 Dose: 6 mg Documented by: SARANARTLivan Methylprednisolone (Solu-Medrol 125 Mg Vial) 125 mg IV NOW ONE Stop: 06/01/19 08:51 Last Admin: 06/01/19 09:16 Dose: 125 mg Documented by: ALFONZO Midodrine (Midodrine) 5 mg PO BID [facility] Last Admin: 05/31/19 20:58 Dose: Not Given Documented by: Admin: 05/31/19 12:30 Dose: Not Given Documented by: Admin: 05/30/19 21:40 Dose: 5 mg Documented by: Admin: 05/30/19 09:22 Dose: 5 mg Documented by: JESSICA Pantoprazole Sodium (Protonix) 20 mg PO 0600,2100 [facility] Last Admin: 06/01/19 06:15 Dose: Not Given Documented by: Admin: 05/31/19 20:58 Dose: Not Given Documented by: Admin: 05/31/19 05:58 Dose: Not Given Documented by: Admin: 05/30/19 21:47 Dose: 20 mg Documented by: Admin: 05/30/19 09:22 Dose: 20 mg Documented by: JESSICA Polyethylene Glycol (Miralax) 17 gm PO DAILY [facility] Last Admin: 06/01/19 09:11 Dose: Not Given Documented by: Admin: 05/31/19 12:30 Dose: Not Given Documented by: Admin: 05/30/19 09:09 Dose: 17 gm Documented by: JESSICA Potassium Chloride (Klor-Con M20) 20 meq PO BID [facility] Last Admin: 06/01/19 09:11 Dose: Not Given Documented by: Admin: 05/31/19 20:58 Dose: Not Given Documented by: Admin: 05/31/19 12:30 Dose: Not Given Documented by: Admin: 05/30/19 21:46 Dose: 20 meq Documented by: Admin: 05/30/19 09:09 Dose: 20 meq Documented by: JESSICA Sennosides (Senna) 17.2 mg PO BID [facility] Admin: 06/01/19 09:11 Dose: Not Given Documented by: Admin: 05/31/19 20:58 Dose: Not Given Documented by: Admin: 05/31/19 12:30 Dose: Not Given Documented by: Admin: 05/30/19 21:41 Dose: 17.2 mg Documented by: Admin: 05/30/19 09:09 Dose: 17.2 mg Documented by: JESSICA Vancomycin HCl (Vancomycin Trough) 1 [place] [facility] [place] [address] [facility] Stop: 06/01/19 01:31 Vancomycin HCl (Vancomycin Trough) 1 [place] [facility] [place] [address] [facility] Stop: 06/02/19 01:31 Vital Signs Vital signs: Vital Signs - 8 hr 05/29/19 14:05 05/29/19 16:32 05/29/19 17:34 Temperature 98.6 F Pulse Rate 118 H 109 H 102 H Respiratory Rate 23 19 17 Blood Pressure 96/78 Blood Pressure [Right Arm] 132/80 115/60 Pulse Oximetry 98 100 96 MDM - Altered Mental Status <Leonidas HARI Mojica - Last Filed: 05/29/19 22:16> Differential Diagnosis Differential diagnosis: Likely altered mental status, other (Pneumonia, aspiration, insulin-dependent diabetic with elevated blood glucose.) and sepsis (UTI) Medical Records Attestation: I reviewed the patient's medical records. Lab Data Attestation: I reviewed the patient's lab results. Result diagrams: 06/01/19 04:46 06/01/19 04:46 Labs: Lab Results 05/29/19 05/29/19 05/29/19 Range/Units 14:00 14:00 14:00 WBC 10.1 (4.5-11.0) X10^3/uL RBC 3.38 L (4.0-5.2) X10^6/uL Hgb 10.8 L (12.0-16.0) g/dL Hct 33.4 L (36-46) % MCV 98.9 (80-100) fL MCH 32.0 (26-34) PG MCHC 32.4 (30-36) % RDW 15.9 H (11.6-14.8) % Plt Count 234 (150-400) X10^3/uL Neut % (Auto) 72.9 (50-75) % Lymph % (Auto) 15.1 L (25-40) % [place] % (Auto) 10.5 (3-14) % Eos % (Auto) 0.6 L (2-4) % Baso % (Auto) 0.9 (0-2) % Neut # (Auto) 7400 H (9654-7228) /uL Lymph # (Auto) 1500 (8102-5592) /uL [place] # (Auto) 1100 H (0-900) /uL Eos # (Auto) 100 (0-450) /uL Baso # (Auto) 100 (0-100) /uL PT 12.3 (10.1-12.7) SECONDS INR 1.1 (0.9-1.3) APTT 27 D (26.4-36.2) SECONDS ABG pH (7.35-7.45) ABG pCO2 (35-45) mmHg ABG pO2 (80-100) mmHg ABG HCO3 (22-26) mmol/L ABG Total CO2 (21-31) mmol/L ABG O2 Saturation (95-100) % ABG Base Excess (-2-2) mmol/L FiO2 Sodium (137-145) mmol/L Potassium (3.4-5.1) mmol/L Chloride (98-107) mmol/L Carbon Dioxide (22-32) mmol/L BUN (7-17) mg/dL Creatinine (0.52-1.04) mg/dL Estimated GFR (>60) mL/min BUN/Creatinine Ratio (6-22) Glucose (70-100) mg/dL Lactate (0.7-2.1) mmol/L Calcium (8.4-10.2) mg/dL Total Bilirubin (0.2-1.3) mg/dL AST (14-36) IU/L ALT (<35) IU/L Alkaline Phosphatase (38-126) U/L Total Creatine Kinase (30-135) U/L CK-MB (CK-2) (<2.37) ng/mL CK-MB (CK-2) Rel Index (1.5-5.0) % Troponin I (0.01-0.034) ng/mL Total Protein (6.3-8.2) g/dL Albumin (3.5-5.0) g/dL Globulin (1.7-4.1) g/dL Albumin/Globulin Ratio (1.0-2.8) Lipase (23-300) U/L Procalcitonin 1.08 H (<0.5) ng/mL Urine Color Urine Appearance Urine pH (4.5-8.0) Ur Specific [place] (1.000-1.035) Urine Protein (Negative) Urine Glucose (UA) (Negative) g/dL Urine Ketones (NEGATIVE) Urine Occult Blood (Negative) Urine Nitrate (Negative) Urine Bilirubin (NEGATIVE) Urine Urobilinogen (0.2) E.U./dL Ur Leukocyte Esterase (NEGATIVE) Urine RBC (0-5/HPF) Urine WBC (0-5/HPF) Ur Squamous Epith Cells (0-5/HPF) Urine Bacteria (None) Ur Culture Indicated? Ketones (<0.27) mmol/L 05/29/19 05/29/19 05/29/19 Range/Units 14:00 14:00 14:00 WBC (4.5-11.0) X10^3/uL RBC (4.0-5.2) X10^6/uL Hgb (12.0-16.0) g/dL Hct (36-46) % MCV (80-100) fL MCH (26-34) PG MCHC (30-36) % RDW (11.6-14.8) % Plt Count (150-400) X10^3/uL Neut % (Auto) (50-75) % Lymph % (Auto) (25-40) % [place] % (Auto) (3-14) % Eos % (Auto) (2-4) % Baso % (Auto) (0-2) % Neut # (Auto) (6587-4597) /uL Lymph # (Auto) (2761-6608) /uL [place] # (Auto) (0-900) /uL Eos # (Auto) (0-450) /uL Baso # (Auto) (0-100) /uL PT (10.1-12.7) SECONDS INR (0.9-1.3) APTT (26.4-36.2) SECONDS ABG pH (7.35-7.45) ABG pCO2 (35-45) mmHg ABG pO2 (80-100) mmHg ABG HCO3 (22-26) mmol/L ABG Total CO2 (21-31) mmol/L ABG O2 Saturation (95-100) % ABG Base Excess (-2-2) mmol/L FiO2 Sodium 140 (137-145) mmol/L Potassium 3.7 (3.4-5.1) mmol/L Chloride 104 (98-107) mmol/L Carbon Dioxide 25 (22-32) mmol/L BUN 19 H (7-17) mg/dL Creatinine 0.90 (0.52-1.04) mg/dL Estimated GFR > 60.0 (>60) mL/min BUN/Creatinine Ratio 21.1 (6-22) Glucose 405 H (70-100) mg/dL Lactate (0.7-2.1) mmol/L Calcium 9.3 (8.4-10.2) mg/dL Total Bilirubin 1.2 (0.2-1.3) mg/dL AST 116 H (14-36) IU/L ALT 81 H (<35) IU/L Alkaline Phosphatase 247 H (38-126) U/L Total Creatine Kinase 204 H (30-135) U/L CK-MB (CK-2) 1.49 (<2.37) ng/mL CK-MB (CK-2) Rel Index 0.7 L (1.5-5.0) % Troponin I < 0.012 (0.01-0.034) ng/mL Total Protein 6.6 (6.3-8.2) g/dL Albumin 3.5 (3.5-5.0) g/dL Globulin 3.1 (1.7-4.1) g/dL Albumin/Globulin Ratio 1.1 (1.0-2.8) Lipase 347 H 340 H (23-300) U/L Procalcitonin (<0.5) ng/mL Urine Color Urine Appearance Urine pH (4.5-8.0) Ur Specific [place] (1.000-1.035) Urine Protein (Negative) Urine Glucose (UA) (Negative) g/dL Urine Ketones (NEGATIVE) Urine Occult Blood (Negative) Urine Nitrate (Negative) Urine Bilirubin (NEGATIVE) Urine Urobilinogen (0.2) E.U./dL Ur Leukocyte Esterase (NEGATIVE) Urine RBC (0-5/HPF) Urine WBC (0-5/HPF) Ur Squamous Epith Cells (0-5/HPF) Urine Bacteria (None) Ur Culture Indicated? Ketones 0.40 H (<0.27) mmol/L 05/29/19 05/29/19 05/29/19 Range/Units 14:55 15:50 16:41 WBC (4.5-11.0) X10^3/uL RBC (4.0-5.2) X10^6/uL Hgb (12.0-16.0) g/dL Hct (36-46) % MCV (80-100) fL MCH (26-34) PG MCHC (30-36) % RDW (11.6-14.8) % Plt Count (150-400) X10^3/uL Neut % (Auto) (50-75) % Lymph % (Auto) (25-40) % [place] % (Auto) (3-14) % Eos % (Auto) (2-4) % Baso % (Auto) (0-2) % Neut # (Auto) (6123-4004) /uL Lymph # (Auto) (2280-5571) /uL [place] # (Auto) (0-900) /uL Eos # (Auto) (0-450) /uL Baso # (Auto) (0-100) /uL PT (10.1-12.7) SECONDS INR (0.9-1.3) APTT (26.4-36.2) SECONDS ABG pH 7.43 (7.35-7.45) ABG pCO2 37.6 (35-45) mmHg ABG pO2 69 L (80-100) mmHg ABG HCO3 25 (22-26) mmol/L ABG Total CO2 26 (21-31) mmol/L ABG O2 Saturation 94 L (95-100) % ABG Base Excess 1.0 (-2-2) mmol/L FiO2 21 Sodium (137-145) mmol/L Potassium (3.4-5.1) mmol/L Chloride (98-107) mmol/L Carbon Dioxide (22-32) mmol/L BUN (7-17) mg/dL Creatinine (0.52-1.04) mg/dL Estimated GFR (>60) mL/min BUN/Creatinine Ratio (6-22) Glucose (70-100) mg/dL Lactate 4.0 H (0.7-2.1) mmol/L Calcium (8.4-10.2) mg/dL Total Bilirubin (0.2-1.3) mg/dL AST (14-36) IU/L ALT (<35) IU/L Alkaline Phosphatase (38-126) U/L Total Creatine Kinase (30-135) U/L CK-MB (CK-2) (<2.37) ng/mL CK-MB (CK-2) Rel Index (1.5-5.0) % Troponin I (0.01-0.034) ng/mL Total Protein (6.3-8.2) g/dL Albumin (3.5-5.0) g/dL Globulin (1.7-4.1) g/dL Albumin/Globulin Ratio (1.0-2.8) Lipase (23-300) U/L Procalcitonin (<0.5) ng/mL Urine Color Yellow Urine Appearance Clear Urine pH 5.0 (4.5-8.0) Ur Specific [place] 1.015 (1.000-1.035) Urine Protein Negative (Negative) Urine Glucose (UA) 2+ H (Negative) g/dL Urine Ketones Negative (NEGATIVE) Urine Occult Blood Negative (Negative) Urine Nitrate Negative (Negative) Urine Bilirubin Negative (NEGATIVE) Urine Urobilinogen 0.2 (0.2) E.U./dL Ur Leukocyte Esterase Trace H (NEGATIVE) Urine RBC None seen (0-5/HPF) Urine WBC 0-1/hpf (0-5/HPF) Ur Squamous Epith Cells 0-1 /hpf (0-5/HPF) Urine Bacteria Moderate (10-30) H (None) Ur Culture Indicated? Specimen cultured Ketones (<0.27) mmol/L 05/29/19 Range/Units 17:15 WBC (4.5-11.0) X10^3/uL RBC (4.0-5.2) X10^6/uL Hgb (12.0-16.0) g/dL Hct (36-46) % MCV (80-100) fL MCH (26-34) PG MCHC (30-36) % RDW (11.6-14.8) % Plt Count (150-400) X10^3/uL Neut % (Auto) (50-75) % Lymph % (Auto) (25-40) % [place] % (Auto) (3-14) % Eos % (Auto) (2-4) % Baso % (Auto) (0-2) % Neut # (Auto) (4467-5125) /uL Lymph # (Auto) (2732-0306) /uL [place] # (Auto) (0-900) /uL Eos # (Auto) (0-450) /uL Baso # (Auto) (0-100) /uL PT (10.1-12.7) SECONDS INR (0.9-1.3) APTT (26.4-36.2) SECONDS ABG pH (7.35-7.45) ABG pCO2 (35-45) mmHg ABG pO2 (80-100) mmHg ABG HCO3 (22-26) mmol/L ABG Total CO2 (21-31) mmol/L ABG O2 Saturation (95-100) % ABG Base Excess (-2-2) mmol/L FiO2 Sodium (137-145) mmol/L Potassium (3.4-5.1) mmol/L Chloride (98-107) mmol/L Carbon Dioxide (22-32) mmol/L BUN (7-17) mg/dL Creatinine (0.52-1.04) mg/dL Estimated GFR (>60) mL/min BUN/Creatinine Ratio (6-22) Glucose (70-100) mg/dL Lactate 2.5 H (0.7-2.1) mmol/L Calcium (8.4-10.2) mg/dL Total Bilirubin (0.2-1.3) mg/dL AST (14-36) IU/L ALT (<35) IU/L Alkaline Phosphatase (38-126) U/L Total Creatine Kinase (30-135) U/L CK-MB (CK-2) (<2.37) ng/mL CK-MB (CK-2) Rel Index (1.5-5.0) % Troponin I (0.01-0.034) ng/mL Total Protein (6.3-8.2) g/dL Albumin (3.5-5.0) g/dL Globulin (1.7-4.1) g/dL Albumin/Globulin Ratio (1.0-2.8) Lipase (23-300) U/L Procalcitonin (<0.5) ng/mL Urine Color Urine Appearance Urine pH (4.5-8.0) Ur Specific [place] (1.000-1.035) Urine Protein (Negative) Urine Glucose (UA) (Negative) g/dL Urine Ketones (NEGATIVE) Urine Occult Blood (Negative) Urine Nitrate (Negative) Urine Bilirubin (NEGATIVE) Urine Urobilinogen (0.2) E.U./dL Ur Leukocyte Esterase (NEGATIVE) Urine RBC (0-5/HPF) Urine WBC (0-5/HPF) Ur Squamous Epith Cells (0-5/HPF) Urine Bacteria (None) Ur Culture Indicated? Ketones (<0.27) mmol/L Point of Care Testing Glucose POC 338 Imaging Data Chest x-ray: Radiologist's Impression: [address] [address] XRay Report Signed Patient: Breana Claudio JMR#: [id number] : 1960cct:[id number] Age/Sex: 59 / FDate of Service: 05/29/19 Loc: ED Accession Number: [id number] Procedure: XR chest 1V Ordering Provider: Leonidas Mojica PROCEDURE: XR CHEST 1V INDICATIONS: suspected sepsis TECHNIQUE: One view of the chest was acquired. COMPARISON: [facility], CR, XR CHEST 1V, 04/06/2019, 14:08. FINDINGS: Surgical changes and devices: None. Lungs and pleura: Increased pulmonary vascularity is present. Minimal appearance of streaky opacities are present in the retrocardiac region, unchanged. Mediastinum: Mediastinal contours appear normal. Heart size is minimally prominent. Bones and chest wall: No suspicious bony lesions. Overlying soft tissues appear unremarkable. IMPRESSION: Increased pulmonary vascularity suggestive of edema. Minimal streaky retrocardiac opacities are present which could represent atelectasis, developing pneumonia and/or focal edema. Dictated by: Clementine Menjivar M.D. on 05/29/2019 at 15:21 Approved by: Clementine Menjivar M.D. on 05/29/2019 at 15:25 CT scan - head: Radiologist's Impression: [place] [address] CT Scan Report Signed Patient: Breana Claudio JMR#: [id number] : 1960cct:[id number] Age/Sex: 59 / FDate of Service: 05/29/19 Loc: ED Accession Number: [id number] Procedure: CT head/brain wo con Ordering Provider: Leonidas Mojica PROCEDURE: CT HEAD/BRAIN WO CON INDICATIONS: altered mental status TECHNIQUE: Noncontrast 4.5 mm thick angled axial sections acquired from the foramen magnum to the vertex, with coronal and sagittal reformats. For radiation dose reduction, the following was used: automated exposure control, adjustment of mA and/or kV according to patient size. COMPARISON: [facility], MR, MR BRAIN WITH/WITHOUT CONTRAST, 03/31/2019, 10:28. [facility], CT, CT HEAD/BRAIN WO CON, 04/06/2019, 13:52. FINDINGS: Image quality: This examination is limited by involuntary motion artifact. Images are repeated, with some improvement. CSF spaces: Basal cisterns are patent. No extra-axial fluid collections. Ventricles are normal in size and shape. Brain: Remote bifrontal lobe encephalomalacia is seen, with volume loss and dystrophic calcification. This is not significantly changed compared to the prior examination. No midline shift. No intracranial masses or hemorrhage. Sainz-white matter interface is normal. Skull and face: Left-sided craniotomy changes are seen. Calvarium and visualized facial bones are intact, without suspicious lesions. Sinuses: Visualized sinuses and mastoids are clear. IMPRESSION: Stable, remote frontal encephalomalacia with volume loss and with dystrophic calcifications. No acute intracranial process is seen. No acute intracranial hemorrhage is seen. Dictated by: Chetan Black M.D. on 05/29/2019 at 15:20 Approved by: Chetan Black M.D. on 05/29/2019 at 15:22 CT scan - abdomen/pelvis: Radiologist's Impression: [place] [address] CT Scan Report Signed Patient: Breana Claudio R#: [id number] : 1Acct:[id number] Age/Sex: 59 / FDate of Service: 05/29/19 Loc: ED Accession Number: [id number] Procedure: CT abdomen pelvis w con Ordering Provider: Leonidas Mojica PROCEDURE: CT ABDOMEN PELVIS W CON INDICATIONS: AMS, elevated lactate, vomiting TECHNIQUE: After the administration of intravenous contrast, 5 mm thick sections acquired from the diaphragm to the symphysis. 5 mm coronal and sagittal reformats were acquired. For radiation dose reduction, the following was used: automated exposure control, adjustment of mA and/or kV according to patient size. COMPARISON: None. FINDINGS: Image quality: Excellent. ABDOMEN: Lung bases: Lung bases are clear. Heart size is normal. Solid organs: Liver is normal in size and enhancement. Mild hepatic steatosis. Prominent Cynthia's lobe of the liver. Gallbladder is surgically absent. Biliary system is non dilated. Pancreas enhances normally. Spleen is normal in size and enhancement. No adrenal nodules. Kidneys demonstrate normal size and enhancement, without hydronephrosis. Peritoneum and bowel: Bowel loops demonstrate normal wall thickness and caliber. No free fluid or air. Nodes and vessels: No retroperitoneal or mesenteric adenopathy by size criteria. Aorta and inferior vena cava are normal in size. Miscellaneous: No ventral hernias. PELVIS: Genitourinary: The bladder is decompressed by a Edwards catheter. Miscellaneous: No inguinal hernias or adenopathy. Remote hysterectomy. Bones: No suspicious bony lesions. No vertebral body compression fractures. IMPRESSION: 1. No evidence acute abdominal process. 2. Mild hepatic steatosis. 3. Remote cholecystectomy and hysterectomy. Dictated by: Inderjit Mehta M.D. on 05/29/2019 at 16:41 Approved by: Inderjit Mehta M.D. on 05/29/2019 at 16:43 ECG Data Attestation: I personally reviewed and interpreted this ECG as follows: Prior ECG tracings: available for review Interpretation: ST rate at 116 Normal [place] Low QRS voltage in precordial leads NO significant EKG changes from 06/2018 [facility] Narrative Medical decision making narrative: This is a 59-year-old female who presents to ED by [facility] from [facility] with decreased mental status, vomiting and elevated blood glucose. Patient has multiple medical history such as insulin-dependent diabetes, hypertension, morbid obesity, cognitive dysfunction, oligodendraoglioma with prior radiation and chemotherapy, seizure disorder, GERD, chronic pancreatitis, recent GI bleed, who is wheelchair-bound at baseline and needs total care. Upon arrival, patient had low blood pressure of 96/78 with tachycardia of 118 and tachypnea. Patient was obtunded and but aroused by touch/verbal reports difficulty breathing. Her oral mucous membrane was extremely dried and her blood sugar was over 400. Afebrile in the ED with O2 sat of 96% in room air. GCS of 14 (E3/V5/M6). Initially patient denied abdominal discomfort with palpation but when RN assessed abdomen patient reported right upper quadrant discomfort. Low H&H of 10.8 and 33.4 with normal white count with mildly elevated neutrophil of 7400. Lactic acid was 4.0 with procalcitonin of 1.08. Urine was obtained via Edwards catheter and shows moderate bacteria, trace leuks with negative nitrates. Urine cultures pending. Two blood culture has been obtained and pending. Increased pulmonary vascularity with minimum appearance of strict ED opacity in the retrocardiac region which is likely for versus pneumonia or focal edema. Head CT indicates no acute intracranial process or hemorrhage. CT of Abd/Pelvis was added per Dr. Selby's request and shows no acute abdominal process but mild hepatic steatosis. Moderately elevated liver function tests of AST 116/ALT 81/alkaline phosphatase 247, lipase 340 today. Troponin was negative with low CK-MB of 0.7 Serum BG of 405 and mildly increased BUN of 19 with ABG with pH of 7.43, pO2 of 69 with HCO3 of 25 and BE of 1.0 with normal anion gap. Patient was treated with 2 L of IV fluid, administer 10 units of regular subcutaneous insulin as requested by Dr. Selby. Patient was treated with broad-spectrum antibiotic medication 1 g of Rocephin to cover possible UTI and pneumonia. Dr. Wisdom kindly accepted patient's care for UTI and sepsis. Patient is full code and POLST form faxed to ED from nursing facility. Patient had not received 30 mL/kilogram IV fluid bolus for sepsis due to patient takes furosemide for possible heart failure and had exhibited only once for hypotension when patient arrived to ED. <Naveen Lipscomb MD - Last Filed: 06/01/19 20:56> Lab Data Labs: Lab Results 05/29/19 05/29/19 05/29/19 Range/Units 14:00 14:00 14:00 WBC 10.1 (4.5-11.0) X10^3/uL RBC 3.38 L (4.0-5.2) X10^6/uL Hgb 10.8 L (12.0-16.0) g/dL Hct 33.4 L (36-46) % MCV 98.9 (80-100) fL MCH 32.0 (26-34) PG MCHC 32.4 (30-36) % RDW 15.9 H (11.6-14.8) % Plt Count 234 (150-400) X10^3/uL Neut % (Auto) 72.9 (50-75) % Lymph % (Auto) 15.1 L (25-40) % [place] % (Auto) 10.5 (3-14) % Eos % (Auto) 0.6 L (2-4) % Baso % (Auto) 0.9 (0-2) % Neut # (Auto) 7400 H (4802-9475) /uL Lymph # (Auto) 1500 (5756-7914) /uL [place] # (Auto) 1100 H (0-900) /uL Eos # (Auto) 100 (0-450) /uL Baso # (Auto) 100 (0-100) /uL PT 12.3 (10.1-12.7) SECONDS INR 1.1 (0.9-1.3) APTT 27 D (26.4-36.2) SECONDS ABG pH (7.35-7.45) ABG pCO2 (35-45) mmHg ABG pO2 (80-100) mmHg ABG HCO3 (22-26) mmol/L ABG Total CO2 (21-31) mmol/L ABG O2 Saturation (95-100) % ABG Base Excess (-2-2) mmol/L FiO2 Sodium (137-145) mmol/L Potassium (3.4-5.1) mmol/L Chloride (98-107) mmol/L Carbon Dioxide (22-32) mmol/L BUN (7-17) mg/dL Creatinine (0.52-1.04) mg/dL Estimated GFR (>60) mL/min BUN/Creatinine Ratio (6-22) Glucose (70-100) mg/dL Lactate (0.7-2.1) mmol/L Calcium (8.4-10.2) mg/dL Total Bilirubin (0.2-1.3) mg/dL AST (14-36) IU/L ALT (<35) IU/L Alkaline Phosphatase (38-126) U/L Total Creatine Kinase (30-135) U/L CK-MB (CK-2) (<2.37) ng/mL CK-MB (CK-2) Rel Index (1.5-5.0) % Troponin I (0.01-0.034) ng/mL Total Protein (6.3-8.2) g/dL Albumin (3.5-5.0) g/dL Globulin (1.7-4.1) g/dL Albumin/Globulin Ratio (1.0-2.8) Lipase (23-300) U/L Procalcitonin 1.08 H (<0.5) ng/mL Urine Color Urine Appearance Urine pH (4.5-8.0) Ur Specific [place] (1.000-1.035) Urine Protein (Negative) Urine Glucose (UA) (Negative) g/dL Urine Ketones (NEGATIVE) Urine Occult Blood (Negative) Urine Nitrate (Negative) Urine Bilirubin (NEGATIVE) Urine Urobilinogen (0.2) E.U./dL Ur Leukocyte Esterase (NEGATIVE) Urine RBC (0-5/HPF) Urine WBC (0-5/HPF) Ur Squamous Epith Cells (0-5/HPF) Urine Bacteria (None) Ur Culture Indicated? Ketones (<0.27) mmol/L 05/29/19 05/29/19 05/29/19 Range/Units 14:00 14:00 14:00 WBC (4.5-11.0) X10^3/uL RBC (4.0-5.2) X10^6/uL Hgb (12.0-16.0) g/dL Hct (36-46) % MCV (80-100) fL MCH (26-34) PG MCHC (30-36) % RDW (11.6-14.8) % Plt Count (150-400) X10^3/uL Neut % (Auto) (50-75) % Lymph % (Auto) (25-40) % [place] % (Auto) (3-14) % Eos % (Auto) (2-4) % Baso % (Auto) (0-2) % Neut # (Auto) (7320-7267) /uL Lymph # (Auto) (2582-3483) /uL [place] # (Auto) (0-900) /uL Eos # (Auto) (0-450) /uL Baso # (Auto) (0-100) /uL PT (10.1-12.7) SECONDS INR (0.9-1.3) APTT (26.4-36.2) SECONDS ABG pH (7.35-7.45) ABG pCO2 (35-45) mmHg ABG pO2 (80-100) mmHg ABG HCO3 (22-26) mmol/L ABG Total CO2 (21-31) mmol/L ABG O2 Saturation (95-100) % ABG Base Excess (-2-2) mmol/L FiO2 Sodium 140 (137-145) mmol/L Potassium 3.7 (3.4-5.1) mmol/L Chloride 104 (98-107) mmol/L Carbon Dioxide 25 (22-32) mmol/L BUN 19 H (7-17) mg/dL Creatinine 0.90 (0.52-1.04) mg/dL Estimated GFR > 60.0 (>60) mL/min BUN/Creatinine Ratio 21.1 (6-22) Glucose 405 H (70-100) mg/dL Lactate (0.7-2.1) mmol/L Calcium 9.3 (8.4-10.2) mg/dL Total Bilirubin 1.2 (0.2-1.3) mg/dL AST 116 H (14-36) IU/L ALT 81 H (<35) IU/L Alkaline Phosphatase 247 H (38-126) U/L Total Creatine Kinase 204 H (30-135) U/L CK-MB (CK-2) 1.49 (<2.37) ng/mL CK-MB (CK-2) Rel Index 0.7 L (1.5-5.0) % Troponin I < 0.012 (0.01-0.034) ng/mL Total Protein 6.6 (6.3-8.2) g/dL Albumin 3.5 (3.5-5.0) g/dL Globulin 3.1 (1.7-4.1) g/dL Albumin/Globulin Ratio 1.1 (1.0-2.8) Lipase 347 H 340 H (23-300) U/L Procalcitonin (<0.5) ng/mL Urine Color Urine Appearance Urine pH (4.5-8.0) Ur Specific [place] (1.000-1.035) Urine Protein (Negative) Urine Glucose (UA) (Negative) g/dL Urine Ketones (NEGATIVE) Urine Occult Blood (Negative) Urine Nitrate (Negative) Urine Bilirubin (NEGATIVE) Urine Urobilinogen (0.2) E.U./dL Ur Leukocyte Esterase (NEGATIVE) Urine RBC (0-5/HPF) Urine WBC (0-5/HPF) Ur Squamous Epith Cells (0-5/HPF) Urine Bacteria (None) Ur Culture Indicated? Ketones 0.40 H (<0.27) mmol/L 05/29/19 05/29/19 05/29/19 Range/Units 14:55 15:50 16:41 WBC (4.5-11.0) X10^3/uL RBC (4.0-5.2) X10^6/uL Hgb (12.0-16.0) g/dL Hct (36-46) % MCV (80-100) fL MCH (26-34) PG MCHC (30-36) % RDW (11.6-14.8) % Plt Count (150-400) X10^3/uL Neut % (Auto) (50-75) % Lymph % (Auto) (25-40) % [place] % (Auto) (3-14) % Eos % (Auto) (2-4) % Baso % (Auto) (0-2) % Neut # (Auto) (4515-0470) /uL Lymph # (Auto) (0555-3552) /uL [place] # (Auto) (0-900) /uL Eos # (Auto) (0-450) /uL Baso # (Auto) (0-100) /uL PT (10.1-12.7) SECONDS INR (0.9-1.3) APTT (26.4-36.2) SECONDS ABG pH 7.43 (7.35-7.45) ABG pCO2 37.6 (35-45) mmHg ABG pO2 69 L (80-100) mmHg ABG HCO3 25 (22-26) mmol/L ABG Total CO2 26 (21-31) mmol/L ABG O2 Saturation 94 L (95-100) % ABG Base Excess 1.0 (-2-2) mmol/L FiO2 21 Sodium (137-145) mmol/L Potassium (3.4-5.1) mmol/L Chloride (98-107) mmol/L Carbon Dioxide (22-32) mmol/L BUN (7-17) mg/dL Creatinine (0.52-1.04) mg/dL Estimated GFR (>60) mL/min BUN/Creatinine Ratio (6-22) Glucose (70-100) mg/dL Lactate 4.0 H (0.7-2.1) mmol/L Calcium (8.4-10.2) mg/dL Total Bilirubin (0.2-1.3) mg/dL AST (14-36) IU/L ALT (<35) IU/L Alkaline Phosphatase (38-126) U/L Total Creatine Kinase (30-135) U/L CK-MB (CK-2) (<2.37) ng/mL CK-MB (CK-2) Rel Index (1.5-5.0) % Troponin I (0.01-0.034) ng/mL Total Protein (6.3-8.2) g/dL Albumin (3.5-5.0) g/dL Globulin (1.7-4.1) g/dL Albumin/Globulin Ratio (1.0-2.8) Lipase (23-300) U/L Procalcitonin (<0.5) ng/mL Urine Color Yellow Urine Appearance Clear Urine pH 5.0 (4.5-8.0) Ur Specific [place] 1.015 (1.000-1.035) Urine Protein Negative (Negative) Urine Glucose (UA) 2+ H (Negative) g/dL Urine Ketones Negative (NEGATIVE) Urine Occult Blood Negative (Negative) Urine Nitrate Negative (Negative) Urine Bilirubin Negative (NEGATIVE) Urine Urobilinogen 0.2 (0.2) E.U./dL Ur Leukocyte Esterase Trace H (NEGATIVE) Urine RBC None seen (0-5/HPF) Urine WBC 0-1/hpf (0-5/HPF) Ur Squamous Epith Cells 0-1 /hpf (0-5/HPF) Urine Bacteria Moderate (10-30) H (None) Ur Culture Indicated? Specimen cultured Ketones (<0.27) mmol/L 05/29/19 Range/Units 17:15 WBC (4.5-11.0) X10^3/uL RBC (4.0-5.2) X10^6/uL Hgb (12.0-16.0) g/dL Hct (36-46) % MCV (80-100) fL MCH (26-34) PG MCHC (30-36) % RDW (11.6-14.8) % Plt Count (150-400) X10^3/uL Neut % (Auto) (50-75) % Lymph % (Auto) (25-40) % [place] % (Auto) (3-14) % Eos % (Auto) (2-4) % Baso % (Auto) (0-2) % Neut # (Auto) (5013-6717) /uL Lymph # (Auto) (6516-1533) /uL [place] # (Auto) (0-900) /uL Eos # (Auto) (0-450) /uL Baso # (Auto) (0-100) /uL PT (10.1-12.7) SECONDS INR (0.9-1.3) APTT (26.4-36.2) SECONDS ABG pH (7.35-7.45) ABG pCO2 (35-45) mmHg ABG pO2 (80-100) mmHg ABG HCO3 (22-26) mmol/L ABG Total CO2 (21-31) mmol/L ABG O2 Saturation (95-100) % ABG Base Excess (-2-2) mmol/L FiO2 Sodium (137-145) mmol/L Potassium (3.4-5.1) mmol/L Chloride (98-107) mmol/L Carbon Dioxide (22-32) mmol/L BUN (7-17) mg/dL Creatinine (0.52-1.04) mg/dL Estimated GFR (>60) mL/min BUN/Creatinine Ratio (6-22) Glucose (70-100) mg/dL Lactate 2.5 H (0.7-2.1) mmol/L Calcium (8.4-10.2) mg/dL Total Bilirubin (0.2-1.3) mg/dL AST (14-36) IU/L ALT (<35) IU/L Alkaline Phosphatase (38-126) U/L Total Creatine Kinase (30-135) U/L CK-MB (CK-2) (<2.37) ng/mL CK-MB (CK-2) Rel Index (1.5-5.0) % Troponin I (0.01-0.034) ng/mL Total Protein (6.3-8.2) g/dL Albumin (3.5-5.0) g/dL Globulin (1.7-4.1) g/dL Albumin/Globulin Ratio (1.0-2.8) Lipase (23-300) U/L Procalcitonin (<0.5) ng/mL Urine Color Urine Appearance Urine pH (4.5-8.0) Ur Specific [place] (1.000-1.035) Urine Protein (Negative) Urine Glucose (UA) (Negative) g/dL Urine Ketones (NEGATIVE) Urine Occult Blood (Negative) Urine Nitrate (Negative) Urine Bilirubin (NEGATIVE) Urine Urobilinogen (0.2) E.U./dL Ur Leukocyte Esterase (NEGATIVE) Urine RBC (0-5/HPF) Urine WBC (0-5/HPF) Ur Squamous Epith Cells (0-5/HPF) Urine Bacteria (None) Ur Culture Indicated? Ketones (<0.27) mmol/L Point of Care Testing Glucose POC 338 Discharge Plan Departure Patient Disposition: Admitted As Inpatient Clinical Impression: Sepsis Qualifiers: Sepsis type: sepsis due to unspecified organism Sepsis acute organ dysfunction status: unspecified Qualified Code(s): A41.9 - Sepsis, unspecified organism UTI (urinary tract infection) Qualifiers: Urinary tract infection type: site unspecified Hematuria presence: without hematuria Qualified Code(s): N39.0 - Urinary tract infection, site not specified Discharge Date/Time: 05/29/19 18:25 Referrals: Naveen Vaughn MD [Primary Care Provider] - Admit Date/Time: 05/29/19 18:13 Admit Provider: Gabriele Selby
[2019-05-29 16:09] LABS: Bacteria Urine Moderate (10-30); Squamous Epithelial Cell Urine 0-1 /HPF (0-5/HPF); WBC Urine 0-1/HPF (0-5/HPF)
[2019-05-29 16:10] LABS: Culture Indicated Urine Specimen Cultured
[2019-05-29] MEDS: CEFTRIAXONE 1 GM/50 ML FROZ.PIGGY IV (16:29)
--- NOTE | 2019-05-29 16:57 | DI.CT.S_ITS ---
PROCEDURE: CT ABDOMEN PELVIS W CON INDICATIONS: AMS, elevated lactate, vomiting TECHNIQUE: After the administration of intravenous contrast, 5 mm thick sections acquired from the diaphragm to the symphysis. 5 mm coronal and sagittal reformats were acquired. For radiation dose reduction, the following was used: automated exposure control, adjustment of mA and/or kV according to patient size. COMPARISON: None. FINDINGS: Image quality: Excellent. ABDOMEN: Lung bases: Lung bases are clear. Heart size is normal. Solid organs: Liver is normal in size and enhancement. Mild hepatic steatosis. Prominent Cynthia's lobe of the liver. Gallbladder is surgically absent. Biliary system is non dilated. Pancreas enhances normally. Spleen is normal in size and enhancement. No adrenal nodules. Kidneys demonstrate normal size and enhancement, without hydronephrosis. Peritoneum and bowel: Bowel loops demonstrate normal wall thickness and caliber. No free fluid or air. Nodes and vessels: No retroperitoneal or mesenteric adenopathy by size criteria. Aorta and inferior vena cava are normal in size. Miscellaneous: No ventral hernias. PELVIS: Genitourinary: The bladder is decompressed by a Edwards catheter. Miscellaneous: No inguinal hernias or adenopathy. Remote hysterectomy. Bones: No suspicious bony lesions. No vertebral body compression fractures. IMPRESSION: 1. No evidence acute abdominal process. 2. Mild hepatic steatosis. 3. Remote cholecystectomy and hysterectomy. Dictated by: Inderjit Mehta M.D. on 05/29/2019 at 16:41 Approved by: Inderjit Mehta M.D. on 05/29/2019 at 16:43
[2019-05-29 17:00] LABS: Reflexed Lactate in 2 Hours Y
[2019-05-29 17:00] LABS: Fractionated Inspired Oxygen 21; HCO3 ABG 25 mmol/L (22-26); Oxygen Saturation ABG 94 % (95-100); PCO2 ABG 37.6 mmHg (35-45); PO2 ABG 69 mmHg (80-100); TCO2 ABG 26 mmol/L (21-31); pH ABG 7.43 (7.35-7.45)
[2019-05-29 17:39] LABS: Lactate 2HR (Lactic Acid Rflx) 2.5 mmol/L (0.7-2.1)
[2019-05-29] MEDS: INSULIN REGULAR 100 UNIT/ML 3 ML VIAL 10 UNIT SUBCUT (17:52)
--- NOTE | 2019-05-29 19:09 | P.HP_ITS ---
History of Present Illness History of Present Illness Date Patient Seen: 05/29/19 Chief complaint: Hyperglycemia Narrative: HPI is obtained via direct interview with the patient and review of records. Patient herself is somnolent and may be an unreliable historian. The patient is a 59-year-old female with PMH of cognitive dysfunction, oligodendraoglioma w/ prior radiation and chemotherapy, HTN, IDDM 2T, HLD, morbid obesity (BMI 43.2), seizure disorder, prior tobacco dependence, GERD, hepatic steatosis, chronic pancreatitis, bladder stimulator in place (not a candidate for MRI/MRCP), bowel and bladder incontinence, and debility/deconditioning. Patient requires total care. She is wheelchair-bound at baseline. Patient presented to the ED on 05/29/2019 (triaged at 1405) by EMS from [facility] out of concern for altered mental status. ED records comment that in the nursing facility patient was noted to have change in level of consciousness after an episode of vomiting. Patient was also noted to be hypotensive. On presentation to the ED patient was found to have elevated blood sugar of 405. Patient herself is not able to comment why she is in the hospital. She is somewhat somnolent; however, she was able to report having elevated blood sugars, vomiting, and an episode of seizure on 05/28/2019. Patient denies chest pain, palpitations, and difficulty breathing. She notes presence of abdominal pain in the right upper quadrant. She denies diarrhea. ED Presentation & Work-Up VS, 05/29/2019. T 98.6F BP 96/78 HR 118 RR 23 SpO2 98% on RA. GCS 15 Labs, 05/29 1400 WBC 10.1 Lactate 4.0 (1400) -> 2.5 (1715) PCT 1.08 Hgb 10.8 Hct 33.4 Plt 234 PT 12.3 INR 1.1 aPTT 27 Na 140 K 3.7 Cl 104 Ca 9.3 Alb 3.5 Glu 405 CO2 25 BUN 19 Cr 0.9 BUN:Cr 21.1 T.Bili 1.2 AST 116 ALT 81 ALP 247 CK 204 Trop < 0.012 Ketones 0.4 UA... Glucose 2+, LE (+ trace), WBC (moderate 10-30) ABG... pH 7.43 pCO2 37.6 pO2 [address] HEAD Stable, remote bifrontal lobe encephalomalacia with volume loss and dystrophic calcification. No midline shift. No intracranial masses or hemorrhage. Left- sided craniotomy changes are seen. Calvarium and visualized facial bones are intact, without suspicious lesions. XR CHEST. Increased pulmonary vascularity suggestive of edema. Minimal streaky retrocardiac opacities are present which could represent atelectasis, developing pneumonia and/or focal edema. CT A/P No evidence acute abdominal process. Mild hepatic steatosis. Remote cholecystectomy and hysterectomy. 2L NS bolus (1503, 1628), ceftriaxone 1 gm (1629), 10 units IV insulin Patient History Medical History Anxiety (Chronic) Chicken pox (Resolved ~1966) Cognitive dysfunction (Chronic) Depression (Chronic) Diabetes mellitus type 2, insulin dependent (Chronic ~2007) Fecal incontinence (Chronic) Fractures (Resolved ~2017) GERD without esophagitis (Chronic) Hearing loss (Chronic ~2016) High serum lactate (Chronic) Measles (Resolved ~1963) Oligodendroglioma (Chronic ~2011) Orthostatic hypotension (Chronic) Other and unspecified hyperlipidemia (Chronic) Ovarian cyst (Chronic ~1983) Seizure disorder (Chronic) Urinary incontinence (Chronic ~2015) Vision disorder (Chronic) Surgical History Anesthesia (Resolved) H/O pelvic surgery (Inactive ~2016) History of cholecystectomy (Resolved ~1987) History of hysterectomy (Resolved ~1988) Family & Social History Family History Father Cancer Diabetes mellitus Hypertension Sister Hypertension Sister Cancer Grandfather Heart disease Grandmother Heart disease Social History: household members caregiver,other Prior Living Arrangements Skilled Nurse Facility lives independently Yes caregiver/support person Yes Safety & Behavioral: Feels Safe in Current Yes Environment Been Physically Hurt or No Threatened By a Person Suicidal Ideation Description None Suicide Plan Description No Plan Tobacco & Substance use: Smoking Status Former smoker alcohol intake never alcohol intake frequency holiday/special occasion Substance Use Type does not use Meds Home Medications and Allergies Home Medications Medication Instructions Recorded Confirmed Type ondansetron HCl 4 mg tablet 4 mg PO Q6H PRN #30 tab 05/29/18 05/29/19 Rx pen needle, diabetic 30 gauge x #100 each 11/20/18 05/29/19 Rx 5/16 acetaminophen 325 mg tablet 650 mg PO Q4H PRN #90 tab 12/12/18 05/29/19 Rx meclizine 25 mg tablet 25 mg PO Q6H PRN #90 tab 12/12/18 05/29/19 Rx furosemide 40 mg PO DAILY 02/02/19 05/29/19 History lancets 30 gauge #100 each 02/02/19 05/29/19 Rx aspirin 81 mg tablet,delayed 81 mg PO DAILY #30 tab 03/02/19 05/29/19 Rx release cholecalciferol (vitamin D3) 1,000 1,000 unit PO DAILY #90 cap 03/02/19 05/29/19 Rx unit capsule citalopram 20 mg tablet 20 mg PO DAILY #90 tab 03/02/19 05/29/19 Rx hydrocortisone acetate 1 % topical 1 applic TOPICAL Q8H PRN #57 gram 03/02/19 05/29/19 Rx cream magnesium oxide 400 mg (241.3 mg 400 mg PO BID #60 tab 03/02/19 05/29/19 Rx magnesium) tablet melatonin 3 mg tablet 6 mg PO BEDTIME #180 tab 03/02/19 05/29/19 Rx midodrine 5 mg tablet 5 mg PO BID #30 tab 03/02/19 05/29/19 Rx omeprazole 20 mg capsule,delayed 20 mg PO BID #180 cap 03/02/19 05/29/19 Rx release polyethylene glycol 3350 17 17 gram PO DAILY #510 gram 03/19/19 05/29/19 Rx gram/dose oral powder nystatin 100,000 unit/gram topical 1 applic TOPICAL PRN PRN #30 gram 03/23/19 05/29/19 Rx powder sennosides 17.2 mg PO BID 03/25/19 05/29/19 History atorvastatin 10 mg PO BEDTIME 04/06/19 05/29/19 History folic acid 0.4 mg PO BEDTIME 04/06/19 05/29/19 History insulin glargine [Basaglar KwikPen 30 unit SUBCUT BEDTIME 04/06/19 05/29/19 History U-100 Insulin] acetaminophen 650 mg GA Q4H PRN 05/29/19 05/29/19 History furosemide 80 mg PO DAILY 05/29/19 05/29/19 History insulin aspart U-100 [Novolog 15 unit SUBCUT BID 05/29/19 05/29/19 History Flexpen U-100 Insulin] insulin aspart U-100 [Novolog See Rx Instructions .ROUTE .COMPLEX 05/29/19 05/29/19 History Flexpen U-100 Insulin] levetiracetam 500 mg PO QAM 05/29/19 05/29/19 History levetiracetam 750 mg PO BEDTIME 05/29/19 05/29/19 History potassium chloride 20 meq PO BID 05/29/19 05/29/19 History Allergies Allergy/AdvReac Type Severity Reaction Status Date / Time adhesive tape Allergy Unknown Verified 01/14/19 20:39 Penicillins Allergy Unknown Verified 01/14/19 20:39 silicone Allergy Unknown Verified 01/14/19 20:39 zonisamide Allergy Unknown Verified 01/14/19 20:39 escitalopram AdvReac Unknown Verified 01/14/19 20:39 lamotrigine AdvReac Unknown Verified 01/14/19 20:39 Review of Systems Review of Systems ROS Unobtainable: unobtainable due to mental status (Patient is somnolent w/ difficulty maintaining wakeful state) Exam Vital Signs (past 8 hours): - 05/29/19 14:05 05/29/19 16:32 05/29/19 17:34 Temperature 98.6 F Pulse Rate 118 H 109 H 102 H Respiratory Rate 23 19 17 Blood Pressure 96/78 Blood Pressure [Right Arm] 132/80 115/60 Pulse Oximetry 98 100 96 05/29/19 18:18 Temperature Pulse Rate 103 H Respiratory Rate 27 H Blood Pressure 118/66 Blood Pressure [Right Arm] Pulse Oximetry 96 Oxygen Delivery Method Room Air Narrative Exam Narrative: Constitutional: NAD, obese habitus BMI 43.8 Neurologic: somnolent, withdraws to a sternal rub, GCS 13 E (2) V (5) M (6) able to follow simple commands, generalized weakness speech is slurred Head: NC, AT, right facial bruise Eyes: pupils equal 2/2 sluggish, gaze conjugate, no scleral icterus Ears: external ears normal, no otorrhea Nose: external nose normal, no rhinorrhea or epistaxis Throat: Dry MM, oropharynx w/o exudate Neck: thick / short, no JVD, no lymphadenopathy Chest / Respiratory: equal chest rise unlabored respiratory effort, no dyspnea or tachypnea at rest Heart / CV: S1S2, no murmur Abdomen / GI: marked central obesity and distention + hepatomegally + tenderness in the RUQ on palpation + BS : no suprapubic tenderness hernandez catheter in place Peripheral / Vascular: sensation intact, mildly cool + BLE edema 2+ (R > L) Musc: strength equal, but weak in both upper and lower extremities Skin: multiple areas of bruising on extremities and abdomen Stretch hsuton on abdomen w/ evidence of inflammation Objective Labs Result Diagrams: 05/29/19 14:00 05/29/19 14:00 Labs: Laboratory Results - last 24 hr 05/29/19 05/29/19 05/29/19 14:00 14:00 14:00 WBC 10.1 RBC 3.38 L Hgb 10.8 L Hct 33.4 L MCV 98.9 MCH 32.0 MCHC 32.4 RDW 15.9 H Plt Count 234 Neut % (Auto) 72.9 Lymph % (Auto) 15.1 L [place] % (Auto) 10.5 Eos % (Auto) 0.6 L Baso % (Auto) 0.9 Neut # (Auto) 7400 H Lymph # (Auto) 1500 [place] # (Auto) 1100 H Eos # (Auto) 100 Baso # (Auto) 100 PT 12.3 INR 1.1 APTT 27 D ABG pH ABG pCO2 ABG pO2 ABG HCO3 ABG Total CO2 ABG O2 Saturation ABG Base Excess FiO2 Sodium Potassium Chloride Carbon Dioxide BUN Creatinine Estimated GFR BUN/Creatinine Ratio Glucose Lactate Calcium Total Bilirubin AST ALT Alkaline Phosphatase Total Creatine Kinase CK-MB (CK-2) CK-MB (CK-2) Rel Index Troponin I Total Protein Albumin Globulin Albumin/Globulin Ratio Lipase Procalcitonin 1.08 H Urine Color Urine Appearance Urine pH Ur Specific [place] Urine Protein Urine Glucose (UA) Urine Ketones Urine Occult Blood Urine Nitrate Urine Bilirubin Urine Urobilinogen Ur Leukocyte Esterase Urine RBC Urine WBC Ur Squamous Epith Cells Urine Bacteria Ur Culture Indicated? Ketones 05/29/19 05/29/19 05/29/19 14:00 14:00 14:00 WBC RBC Hgb Hct MCV MCH MCHC RDW Plt Count Neut % (Auto) Lymph % (Auto) [place] % (Auto) Eos % (Auto) Baso % (Auto) Neut # (Auto) Lymph # (Auto) [place] # (Auto) Eos # (Auto) Baso # (Auto) PT INR APTT ABG pH ABG pCO2 ABG pO2 ABG HCO3 ABG Total CO2 ABG O2 Saturation ABG Base Excess FiO2 Sodium 140 Potassium 3.7 Chloride 104 Carbon Dioxide 25 BUN 19 H Creatinine 0.90 Estimated GFR > 60.0 BUN/Creatinine Ratio 21.1 Glucose 405 H Lactate Calcium 9.3 Total Bilirubin 1.2 AST 116 H ALT 81 H Alkaline Phosphatase 247 H Total Creatine Kinase 204 H CK-MB (CK-2) 1.49 CK-MB (CK-2) Rel Index 0.7 L Troponin I < 0.012 Total Protein 6.6 Albumin 3.5 Globulin 3.1 Albumin/Globulin Ratio 1.1 Lipase 347 H 340 H Procalcitonin Urine Color Urine Appearance Urine pH Ur Specific [place] Urine Protein Urine Glucose (UA) Urine Ketones Urine Occult Blood Urine Nitrate Urine Bilirubin Urine Urobilinogen Ur Leukocyte Esterase Urine RBC Urine WBC Ur Squamous Epith Cells Urine Bacteria Ur Culture Indicated? Ketones 0.40 H 05/29/19 05/29/19 05/29/19 14:55 15:50 16:41 WBC RBC Hgb Hct MCV MCH MCHC RDW Plt Count Neut % (Auto) Lymph % (Auto) [place] % (Auto) Eos % (Auto) Baso % (Auto) Neut # (Auto) Lymph # (Auto) [place] # (Auto) Eos # (Auto) Baso # (Auto) PT INR APTT ABG pH 7.43 ABG pCO2 37.6 ABG pO2 69 L ABG HCO3 25 ABG Total CO2 26 ABG O2 Saturation 94 L ABG Base Excess 1.0 FiO2 21 Sodium Potassium Chloride Carbon Dioxide BUN Creatinine Estimated GFR BUN/Creatinine Ratio Glucose Lactate 4.0 H Calcium Total Bilirubin AST ALT Alkaline Phosphatase Total Creatine Kinase CK-MB (CK-2) CK-MB (CK-2) Rel Index Troponin I Total Protein Albumin Globulin Albumin/Globulin Ratio Lipase Procalcitonin Urine Color Yellow Urine Appearance Clear Urine pH 5.0 Ur Specific [place] 1.015 Urine Protein Negative Urine Glucose (UA) 2+ H Urine Ketones Negative Urine Occult Blood Negative Urine Nitrate Negative Urine Bilirubin Negative Urine Urobilinogen 0.2 Ur Leukocyte Esterase Trace H Urine RBC None seen Urine WBC 0-1/hpf Ur Squamous Epith Cells 0-1 /hpf Urine Bacteria Moderate (10-30) H Ur Culture Indicated? Specimen cultured Ketones 05/29/19 17:15 WBC RBC Hgb Hct MCV MCH MCHC RDW Plt Count Neut % (Auto) Lymph % (Auto) [place] % (Auto) Eos % (Auto) Baso % (Auto) Neut # (Auto) Lymph # (Auto) [place] # (Auto) Eos # (Auto) Baso # (Auto) PT INR APTT ABG pH ABG pCO2 ABG pO2 ABG HCO3 ABG Total CO2 ABG O2 Saturation ABG Base Excess FiO2 Sodium Potassium Chloride Carbon Dioxide BUN Creatinine Estimated GFR BUN/Creatinine Ratio Glucose Lactate 2.5 H Calcium Total Bilirubin AST ALT Alkaline Phosphatase Total Creatine Kinase CK-MB (CK-2) CK-MB (CK-2) Rel Index Troponin I Total Protein Albumin Globulin Albumin/Globulin Ratio Lipase Procalcitonin Urine Color Urine Appearance Urine pH Ur Specific [place] Urine Protein Urine Glucose (UA) Urine Ketones Urine Occult Blood Urine Nitrate Urine Bilirubin Urine Urobilinogen Ur Leukocyte Esterase Urine RBC Urine WBC Ur Squamous Epith Cells Urine Bacteria Ur Culture Indicated? Ketones Assessment & Plan Assessment & Plan narrative: Patient is being admitted under observation status for acute metabolic encephalopathy Metabolic encephalopathy, acute, present on admission, active - infection (pneumonia) vs post ictal state - neuro checks Q4H - additional labs: prolactin, ammonia level, keppra level - hold DISTRIBUTED [employer]ER[employer]S CONSULTANT oral meds while lethargic / somnolent, will convert to IV formulation if able Sepsis, suspected / acute, present on admission, active - 2/2 PNA, community acquired vs aspiration (in the setting of seizure activity ?) - SIRS (hypotension, tachycardia, tachypnea), lactate 4.0, acute metabolic encephalopathy (acute organ dysfx) - CXR... Increased pulmonary vascularity suggestive of edema. Atelectasis versus developing pneumonia versus focal edema. - UA... Glucose 2+, LE (+ trace), WBC (moderate 10-30), cx pending - Blood Cx collected in ED (05/29, x2 sets), pending - Trend lactate Q3H until normal, 4.0 -> 2.5 - Received rocephin 1 gm in ED, will continue at this time - Repeat PCT in am IDDM 2T w/ hyperglycemia, chronic condition, present on admission, active / uncontrolled - A1C - Glu 405 on presentation, received 10 units IV insulin - Glu POC AC, HS, 0000, and 0300 - DISTRIBUTED ENERGY SYSTEMS CONSULTANT regimen: bassaglar 30 units QHS and - Resume bassaglar at 20 units QHS (30% reduction, pt NPO tonight / controlled diet in inpatient setting). Will start on SSI high dose. - NPO tonight while somnolent / lethargic, advance to heart healthy w/ con sistant carb once mental status improves Seizure disorder, secondary to brain tumor, chronic, present on admission, active - Seizure precautions, last reported seizure activity yesterday, 05/28/2019 - DIST[employer] CONS[employer]ANT anti-epileptic regimen consists of Keppra 500 mg QAM and 750 mg QHS - Keppra level, prolactin level, and Mg tonight Mg 1.2, will replete w/ 4 gm MgSO4 rider Prolactin level 27.6 (elevated) Keppra level still pending (level in April was slightly subtherapeutic and no adjustments to home regimen), Tonight will give Keppra 1000 mg IV x1, re-evaluate and adjust keppra dose in am, pending results of Keppra level Normocytic anemia, chronic condition, present on admission, active - Hgb 10.8, stable, continue to trend w/ routine lab Elevated liver enzymes, chronic condition, present on admission, active - AST 116 ALT 81 ALP 247 Lipase 340 - Patient needs to see a specialist for further biliary work-up and ERCP, this is being continuously recommended. Not a candidate for MRCP due to presence of a bladder stimulator. Oligodendroglioma with prior radiation and chemotherapy, chronic, present on admission. Presumed stable. - Follows w/ outpatient oncology (Dr. Echols) and outpatietn neurology (Dr. Rodney) - DISTRI[employer]ED [employer]S CONSULTANT on dexamethasone 2 mg twice daily, resume Full code. POLST form on file. Home medications reviewed and reconciled accordingly VTE prophylaxis w/ heparin
[2019-05-29 21:02] LABS: Ammonia (NH3) < 9.0 umol/L (9-30)
[2019-05-29 21:03] LABS: Lactate (Lactic Acid) 2.5 mmol/L (0.7-2.1); Magnesium 1.2 mg/dL (1.6-2.3)
[2019-05-29] MEDS: INSULIN GLARGINE 100 UNIT/ML 3ML PEN 20 UNIT SUBCUT (21:11)
[2019-05-29 21:20] LABS: Prolactin 27.6 ng/mL (3.0-18.6)
[2019-05-29] MEDS: levETIRAcetam 1,000 MG in SODIUM CHLORIDE 0.9% 100 ML 440 ML IV (22:09)
[2019-05-29] MEDS: MAGNESIUM SULFATE 4 GM/100 ML PIGGYBACK IV (22:24)
[2019-05-29 22:45] LABS: Reflexed Lactate in 2 Hours Y
[2019-05-29 23:17] LABS: Lactate 2HR (Lactic Acid Rflx) 2.3 mmol/L (0.7-2.1)
[2019-05-30] VITALS (8 sets, daily range): BP systolic 92–115; BP diastolic 52–69; PULSE 112–130; RESP 20; TEMP 36.3–38.5; O2SAT 92–98
--- NOTE | 2019-05-30 08:35 | PC.NURSE ---
Addendum entered by Malika Ferguson R.N. 05/30/19 14:20: Patient with a fever of 101.3 earlier, down to 101.0 when last checked after giving tylenol. She is lethargic and confused. Patient has some significant redness around her thighs, groin, and lower abdomen. Lower redness outlined in black pen, also a couple of area's on the side of her r.thigh and back. aware and area's look like cellulitis to him. Started on vancomycin. She was repositioned to her r.side and bed bath given. On chucks pad, pt has a pin point area to her inner buttocks that has been cleaned up and cream applied. Patient took a couple of bites at breakfast and lunch. Her blood sugars were 217, and 240 and 4u of insulin given to patient. Her 15u of novolog not given as she did not eat much at breakfast. She is resting now comfortably. Original Note: Assess- Patient is Alert and Oriented x3. She denies pain but is tender to touch, with blood pressure cuff. Patient has multiple skin issues, please see skin under physical assessment. She will wake up and talk but patient is lethargic and sleepy. Repositioning every two hours, Edwards patent and putting out yellow urine. Patient with 3-4+ edema to both lower extremities. BS this morning 217. Patient will be getting her insulin soon.
[2019-05-30] MEDS: SENNOSIDES 8.6 MG TABLET 17.2 MG PO ×2 (09:09→21:41)
[2019-05-30] MEDS: FUROSEMIDE 40 MG TABLET PO (09:09)
[2019-05-30] MEDS: MAGNESIUM OXIDE 400 MG TABLET PO ×2 (09:09→21:46)
[2019-05-30] MEDS: POLYETHYLENE GLYCOL 3350 17 GM POWD.PACK PO (09:09)
[2019-05-30] MEDS: POTASSIUM CHLORIDE 20 MEQ TAB PO ×2 (09:09→21:46)
[2019-05-30] MEDS: NYSTATIN POWDER 15GM 1 APPLIC TOP (09:09)
[2019-05-30] MEDS: ASPIRIN EC 81 MG TABLET PO (09:09)
[2019-05-30] MEDS: CITALOPRAM 20 MG TABLET PO (09:09)
[2019-05-30] MEDS: INSULIN ASPART 100 UNIT/ML INSULN PEN SUBCUT ×3 (09:12→21:44)
[2019-05-30] MEDS: MIDODRINE HCL 5 MG TABLET PO ×2 (09:22→21:40)
[2019-05-30] MEDS: PANTOPRAZOLE 20 MG TABLET PO ×2 (09:22→21:47)
[2019-05-30] MEDS: levETIRAcetam 750 MG in SODIUM CHLORIDE 0.9% 100 ML 430 ML IV (12:09)
[2019-05-30] MEDS: ACETAMINOPHEN 325 MG TABLET 650 MG PO (12:14)
[2019-05-30] MEDS: VANCOMYCIN 1,500 MG/300 ML FROZ.PIGGY 200 MG IV (14:43)
--- NOTE | 2019-05-30 15:07 | CM.DANOTE ---
Patient is a 59 year old female who was admitted on 05/30/19 for Hyperglycemia. Pt has [facility] and [facility] for insurance and her PCP has changed from Dr. Vaughn to Dr. Godwin. EMR was reviewed. Per MD, pt has had at least 8 admissions in the past couple months for multiple medical concerns. Pt is a poor historian due to cognitive deficits and is mostly w/c bound and total care. Per RN, pt quite sick today with possible underlying sepsis and not appropriate for bedside assessment at this time. Pt has a long hx of SNF prior to return to Assisted Living at [facility] and has hx at [facility] and [facility]. Family requested [facility] in-house MD Dr. Godwin be pt's ongoing PCP as she is already at [facility]. SW left msg for pt's mom/DPOA Mackenzie Clark ([phone]) Mother and pt's sister Lena both live in [place] but pt has 2 brothers who live in [facility] and visit pt regularly. Pt's assigned MATTHEW CM Gillian Murphy and SW left ms regarding her admission to [phone]. Pt also connected with [facility] through [facility] with assigned cm Ajay Lazo for community coordination of services. SW did not have time to fax clinicals to review to MATTHEW CALLEJAS yet during this admission. Pt was last admitted in Mar 2019 and concerns regarding pt's many admits to the hospital and multiple medical concerns led to APS report for outpt follow up to confirm pt is receiving adequate care at Assisted Living as pt is a vulnerable adult. and Dr. Godwin and SW discussed concerns at length at last admit in March. Plan: SW to follow closely tomorrow to determine pt's medical needs and bedside assessment when pt more medically appropriate and follow for return call from pt's mom/DPOA to further discuss possible needs at d/c and if pt safe for d/c back to [facility] assisted living. MERRY Aguirre Discharge Planning/Care Management Advanced directive, confirm from FAMILY Start: 05/29/19 19:05 Freq: Q24H Status: Complete Protocol: Document 05/29/19 19:05 AKMike (Rec: 05/29/19 19:05 AKMike [id number]) Advance Directive, confirm on record Time 19:05 Person contacted sent from facility Copy received Yes Advanced directive available on record Yes CM Discharge Assessment Start: 05/30/19 15:04 Freq: Status: Active Protocol: Document 05/30/19 15:04 BF (Rec: 05/30/19 15:07 BF [id number]) Discharge Planning Assessment Assigned Fertilizer Processing Supervisor MERRY Castro DPOA/Assigned Designee Name mother Mackenzie Manning Contact Information [phone] Advance Directives? Yes: POLST Advance Directives on File Yes History Provided By Patient,Family Member,Medical Record Has Patient been admitted in last 30 No days? Comment Last admitted in Mar 2019 Prior Living Arrangements Assisted Living Household Members caregiver,other Type of transporation used prior to Relies on Others admit Facility Name Admitted From: [facility] Willing to Return to Facility? Yes Independent with ADL's No Is patient alert and oriented? No Caregiver for Another No Comment Has frida lift for transfers. Name of Agency Gillian Albrecht Contact Phone [phone] Comment Has had multiple readmissions Discharge Plan Assisted Living Facility Transportation Arrangement Likely facility van Referrals Initiated None needed Additional Comment Patient is enrolled in [facility] program. They check on patient monthly at [facility]. Contact is Ajay Lazo ph# .and Gillian CASTRO foster care case manager at: [phone] Review Status In Process Please Provide Date Initial DC 05/30/19 Assessment Was Performed Next Review Type Continued Stay Review
[2019-05-30] MEDS: CEFTRIAXONE 1 GM/50 ML FROZ.PIGGY IV (16:32)
--- NOTE | 2019-05-30 17:34 | P.PN_ITS ---
Subjective Subjective Date Patient Seen: 05/30/19 Interval history: The patient is a 59-year-old female with PMH of cognitive dysfunction, oligodendraoglioma w/ prior radiation and chemotherapy, HTN, IDDM 2T, HLD, morbid obesity (BMI 43.2), seizure disorder, prior tobacco dependence, GERD, hepatic steatosis, chronic pancreatitis, bladder stimulator in place (not a candidate for MRI/MRCP), bowel and bladder incontinence, and debility/deconditioning. Patient requires total care. She is wheelchair-bound at baseline. She was sent to emergency department from [facility] due to altered LOC. She is unarousable and unable to provide any history but appear septic with fever, acute hypotension and tachycardia. Exam Vital Signs (past 8 hours): - 05/30/19 11:52 05/30/19 12:14 05/30/19 15:40 Temperature 101.3 F H 101.3 F H 100.0 F H Pulse Rate 124 H 112 H Respiratory Rate 20 20 Blood Pressure 111/52 L 105/62 Pulse Oximetry 93 94 Oxygen Delivery Method Room Air Oxygen Flow Rate 0 Narrative Exam Narrative: GENERAL: Patient appears uncomfortable but is not arousable HEENT: Head normocephalic, atraumatic. CHEST: Clear to auscultation bilaterally. CARDIAC: Regular rate and rhythm. ABDOMEN: Obese, soft, no tenderness elicited EXTREMITIES: Chronic bilateral 2+ lower extremity edema NEUROLOGICAL: Decreased LOC SKIN: There is macular erythema of bilateral inner thighs extending up groin and into the lower abdomen Objective Labs Result Diagrams: 05/29/19 14:00 05/29/19 14:00 Labs: Laboratory Results - last 24 hr 05/29/19 05/29/19 05/29/19 17:15 20:30 20:40 Lactate 2.5 H 2.5 H Magnesium Ammonia < 9.0 L Prolactin 05/29/19 05/29/19 05/29/19 20:40 20:40 22:55 Lactate 2.3 H Magnesium 1.2 L Ammonia Prolactin 27.6 H Assessment & Plan Assessment & Plan narrative: 1. Acute encephalopathy, likely metabolic due to sepsis, present on admission -treat sepsis, also received bolus of Keppra IV due to seizure history and recent low normal Keppra level 2. Sepsis, present on admission -source likely due to cellulitis and UTI -patient with temperature spike, tachycardia, hypotension, elevated lactate and procalcitonin -chest x-ray with retrocardiac streaking which appears chronic for her and not a new pneumonia -lactate trending down -continue vancomycin and Rocephin -continue IV fluids -holding her diuretics 3. Cellulitis, bilateral lower extremities and abdomen, present on admission -continue vancomycin with pharmacy to monitor trough levels and follow clinical exam 4. UTI, present on admission -urine culture growing Gram-negative bacilli, somewhat unclear if UTI clinically significant and source of sepsis or asymptomatic bacteriuria, but should treat in light of sepsis -continue Rocephin 5. Diabetes, insulin requiring, with hyperglycemia new -glucose 405 on presentation and patient received 10 units IV insulin, glucose trending down -Resumed bsaglar at 20 units QHS (30% reduction, pt NPO tonight / controlled diet in inpatient setting). -continue high dose NovoLog sliding scale 6. Seizure history, chronic -unclear if patient had acute seizure causing or worsening encephalopathy, maintained on Keppra, recent low Keppra level in March 2019 -received 1000 mg IV loading dose Keppra -continue Keppra 750 mg IV b.i.d. then change to p.o. when able, patient's usual home dose of Keppra is 500 mg b.i.d. 7. Hepatic steatosis, chronic -elevated liver enzymes appear at baseline 8. DVT prophylaxis -Lovenox
[2019-05-30] MEDS: SODIUM CHLORIDE 0.9% 1,000 ML 100 ML IV (17:49)
[2019-05-30 19:37] LABS: Add Manual Diff / Slide Review NO; Basophils Absolute Auto 200 /uL (0-100); Basophils Percent Auto 1.2 % (0-2); Eosinophils Absolute Auto 200 /uL (0-450); Eosinophils Percent Auto 1.5 % (2-4); Hematocrit 33.1 % (36-46); Hemoglobin 10.7 g/dL (12.0-16.0); Lymphocytes Absolute Auto 2400 /uL (1100-4500); Lymphocytes Percent Auto 17.6 % (25-40); Mean Corpuscular HGB Conc 32.5 % (30-36); Mean Corpuscular Hemoglobin 31.7 PG (26-34); Mean Corpuscular Volume 97.6 fL (80-100); Monocytes Absolute Auto 800 /uL (0-900); Monocytes Percent Auto 6.2 % (3-14); Neutrophils Absolute Auto 10000 /uL (1500-7000); Neutrophils Percent Auto 73.5 % (50-75); Platelet Count 248 X10^3/uL (150-400); Red Blood Cell Count 3.39 X10^6/uL (4.0-5.2); Red Cell Distribution Width 16.2 % (11.6-14.8); White Blood Cell Count 13.6 X10^3/uL (4.5-11.0)
[2019-05-30 19:54] LABS: Alanine Aminotransferase 66 IU/L (<35); Albumin Globulin Ratio 1.1 (1.0-2.8); Alkaline Phosphatase 251 U/L (38-126); Aspartate Aminotransferase 93 IU/L (14-36); Bilirubin Total 0.9 mg/dL (0.2-1.3); Blood Urea Nitrogen 18 mg/dL (7-17); Calcium 8.8 mg/dL (8.4-10.2); Carbon Dioxide 26 mmol/L (22-32); Chloride 107 mmol/L (98-107); Estimated Glomerular Filt Rate > 60.0 mL/min (>60); Globulin 2.8 g/dL (1.7-4.1); Glucose 316 mg/dL (70-100); HEMOLYSIS < 15 (0-50); Potassium 3.3 mmol/L (3.4-5.1); Sodium 141 mmol/L (137-145); Total Protein 5.8 g/dL (6.3-8.2)
[2019-05-30] MEDS: MELATONIN 3 MG TABLET 6 MG PO (21:40)
[2019-05-30] MEDS: ATORVASTATIN 10 MG TABLET PO (21:40)
[2019-05-30] MEDS: INSULIN GLARGINE 100 UNIT/ML 3ML PEN 20 UNIT SUBCUT (21:42)
[2019-05-30] MEDS: POTASSIUM CHLORIDE 40 MEQ in SODIUM CHLORIDE 0.9% 500 ML 130 ML IV (22:15)
[2019-05-31] VITALS (21 sets, daily range): BP systolic 40–101; BP diastolic 17–62; PULSE 71–143; RESP 16–26; TEMP 36.4–38.6; O2SAT 95–100
[2019-05-31] MEDS: INSULIN ASPART 100 UNIT/ML INSULN PEN SUBCUT ×3 (02:22→18:51)
[2019-05-31] MEDS: levETIRAcetam 750 MG in SODIUM CHLORIDE 0.9% 100 ML 430 ML IV (02:26)
[2019-05-31] MEDS: VANCOMYCIN 1,500 MG/300 ML FROZ.PIGGY 200 MG IV (02:43)
--- NOTE | 2019-05-31 04:01 | PC.NURSE ---
Addendum entered by Calista Ocasio R.N. 05/31/19 06:09: Patient continues to localize to pain, less responsive to voice, does not verbalize on command but will moan/cry out to pain. LEAVE SPECIALIST notified of patient's declining mental status in last 24 hours. Original Note: Shift note: Received pt from evening shift. Patient arousable to voice and touch/pain, incoherently mumbles to questions or stimuli. LEAVE SPECIALIST aware of patient's mental status at start of shift. Patient unable to follow commands to take a deep breath, lung sounds are coarse on right. Vital signs notable for tachycardia and hypotension but is afebrile and on room air. Patient has extensive skin issues, noted rash on chest and thighs to abdomen, steri strips have fallen off left elbow wound. Patient is being turned every 2 hours for pressure relief, has 4+ pitting edema to bilateral feet. Unable to call appropriately, cannot use call light, bed alarm on and functioning, high fall risk, in view room.
[2019-05-31 06:06] LABS: Hematocrit 34.3 % (36-46); Hemoglobin 11.1 g/dL (12.0-16.0); Mean Corpuscular HGB Conc 32.4 % (30-36); Mean Corpuscular Hemoglobin 31.8 PG (26-34); Mean Corpuscular Volume 98.2 fL (80-100); Platelet Count 281 X10^3/uL (150-400); Red Blood Cell Count 3.49 X10^6/uL (4.0-5.2); Red Cell Distribution Width 16.1 % (11.6-14.8); White Blood Cell Count 17.6 X10^3/uL (4.5-11.0)
[2019-05-31 06:08] LABS: Add Manual Diff / Slide Review YES
[2019-05-31 06:11] LABS: Blood Urea Nitrogen 18 mg/dL (7-17); Calcium 8.5 mg/dL (8.4-10.2); Carbon Dioxide 22 mmol/L (22-32); Chloride 111 mmol/L (98-107); Estimated Glomerular Filt Rate 56.9 mL/min (>60); Glucose 230 mg/dL (70-100); HEMOLYSIS < 15 (0-50); Magnesium 1.8 mg/dL (1.6-2.3); Potassium 3.6 mmol/L (3.4-5.1); Sodium 143 mmol/L (137-145)
[2019-05-31 06:58] LABS: Neutrophils Absolute Manual 14256 /uL (3000-5900); Polychromasia 1+; Total Cells Counted 100
--- NOTE | 2019-05-31 10:14 | P.PN_ITS ---
Subjective Subjective Date Patient Seen: 05/31/19 Interval history: The patient is a 59-year-old female with PMH of cognitive dysfunction, oligodendraoglioma w/ prior radiation and chemotherapy, HTN, IDDM 2T, HLD, morbid obesity (BMI 43.2), seizure disorder, prior tobacco dependence, GERD, hepatic steatosis, chronic pancreatitis, bladder stimulator in place (not a candidate for MRI/MRCP), bowel and bladder incontinence, and debility/deconditioning. Patient requires total care. She is wheelchair-bound at baseline. She was sent to emergency department from [facility] due to altered LOC. She is being treated for sepsis. She remains on arousable since admission. Exam Vital Signs (past 8 hours): - 05/31/19 03:00 Temperature 98.4 F Pulse Rate 124 H Respiratory Rate 20 Blood Pressure 101/54 L Pulse Oximetry 95 Oxygen Delivery Method Room Air Oxygen Flow Rate 0 Narrative Exam Narrative: GENERAL: Patient is not arousable CHEST: Clear to auscultation bilaterally. CARDIAC: Regular rate and rhythm. ABDOMEN: Obese, soft, no tenderness elicited EXTREMITIES: Chronic bilateral 2+ lower extremity edema NEUROLOGICAL: Decreased LOC SKIN: There is previously noted macular erythema of bilateral inner thighs extending up groin and into the lower abdomen. In addition there is patchy macular erythema on the neck, anterior chest and arms. Objective Labs Result Diagrams: 05/31/19 05:38 05/31/19 05:38 Labs: Laboratory Results - last 24 hr 05/30/19 05/30/19 05/30/19 19:26 19:26 19:26 WBC 13.6 H RBC 3.39 L Hgb 10.7 L Hct 33.1 L MCV 97.6 MCH 31.7 MCHC 32.5 RDW 16.2 H Plt Count 248 Neut % (Auto) 73.5 Lymph % (Auto) 17.[address] [facility] % (Auto) 6.2 Eos % (Auto) 1.5 L Baso % (Auto) 1.2 Neut # (Auto) 94257 H Lymph # (Auto) 2400 [facility] # (Auto) 800 Eos # (Auto) 200 Baso # (Auto) 200 H Total Counted Seg Neutrophils % Band Neutrophils % Lymphocytes % (Manual) Monocytes % (Manual) Eosinophils % (Manual) Neutrophils # (Manual) RBC Morphology Polychromasia Sodium 141 Potassium 3.3 L Chloride 107 Carbon Dioxide 26 BUN 18 H Creatinine 0.90 Estimated GFR > 60.0 BUN/Creatinine Ratio 20.0 Glucose 316 H Calcium 8.8 Magnesium 2.0 Total Bilirubin 0.9 AST 93 H ALT 66 H Alkaline Phosphatase 251 H Total Protein 5.8 L Albumin 3.0 L Globulin 2.8 Albumin/Globulin Ratio 1.1 05/31/19 05/31/19 05:38 05:38 WBC 17.6 H RBC 3.49 L Hgb 11.1 L Hct 34.3 L MCV 98.2 MCH 31.8 MCHC 32.4 RDW 16.1 H Plt Count 281 Neut % (Auto) Not Reportable Lymph % (Auto) Not Reportable [facility] % (Auto) Not Reportable Eos % (Auto) Not Reportable Baso % (Auto) Not Reportable Neut # (Auto) Lymph # (Auto) Not Reportable [facility] # (Auto) Not Reportable Eos # (Auto) Baso # (Auto) Not Reportable Total Counted 100 Seg Neutrophils % 65.0 Band Neutrophils % 16.0 H Lymphocytes % (Manual) 9.0 L Monocytes % (Manual) 9.0 Eosinophils % (Manual) 1.0 L Neutrophils # (Manual) 03915 H RBC Morphology See below Polychromasia 1+ H Sodium 143 Potassium 3.6 Chloride 111 H Carbon Dioxide 22 BUN 18 H Creatinine 1.00 Estimated GFR 56.9 L BUN/Creatinine Ratio 18.0 Glucose 230 H Calcium 8.5 Magnesium 1.8 Total Bilirubin AST ALT Alkaline Phosphatase Total Protein Albumin Globulin Albumin/Globulin Ratio Assessment & Plan Assessment & Plan narrative: The patient is a 59-year-old female with PMH of cognitive dysfunction, oligodendraoglioma w/ prior radiation and chemotherapy, HTN, IDDM 2T, HLD, morbid obesity (BMI 43.2), seizure disorder, prior tobacco dependence, GERD, hepatic steatosis, chronic pancreatitis, bladder stimulator in place (not a candidate for MRI/MRCP), bowel and bladder incontinence, and debility/deconditioning. Patient requires total care. She is wheelchair-bound at baseline. She was sent to emergency department from [facility] due to altered LOC. She is being treated for sepsis. She remains on arousable since admission. 1. Acute encephalopathy, likely metabolic due to sepsis, present on admission -treat sepsis, also received bolus of Keppra IV due to seizure history and recent low normal Keppra level 2. Sepsis, present on admission -source likely due to cellulitis and UTI -patient admitted with fever, tachycardia, hypotension, elevated lactate and procalcitonin -WBC increasing since admission, currently 17.6, but lactate was trending down, temperature trending down as well -chest x-ray with retrocardiac streaking which appears chronic for her and not a new pneumonia -continue vancomycin and Rocephin -continue IV fluids -holding her diuretics 3. Cellulitis, bilateral lower extremities and lower abdomen, present on admission -unclear if rash on thighs and lower abdomen is true cellulitis versus acute/chronic dermatitis but treating for cellulitis in light of sepsis presentation -continue vancomycin with pharmacy to monitor trough levels and follow clinical exam -this a.m. she has developed patchy macular erythema on the neck, chest and arms which could be red man syndrome from vancomycin verses an allergic reaction or hypersensitivity to antibiotic, it does not appear as hives -requested nursing to give vancomycin at slower rate in case this is red man sy ndrome 4. UTI, present on admission -urine culture positive for Enterobacter, sensitive to Rocephin and Levaquin, somewhat unclear if UTI clinically significant and source of sepsis or asymptomatic bacteriuria, but should treat in light of sepsis -continue Rocephin 5. Diabetes, insulin requiring, with hyperglycemia new -glucose 405 on presentation and patient received 10 units IV insulin, glucose trending down -now on home regimen of insulin glargine 30 units HS -continue high dose NovoLog sliding scale -remains NPO and getting IV fluids due to encephalopathy 6. Seizure history, chronic -unclear if patient had acute seizure causing or worsening encephalopathy, maintained on Keppra, recent low Keppra level in March 2019 -received 1000 mg IV loading dose Keppra -continue Keppra 750 mg IV b.i.d. then change to p.o. when able, patient's usual home dose of Keppra is 500 mg q.a.m. and 750 mg q.h.s. 7. Hepatic steatosis, chronic -elevated liver enzymes appear improved from recent baseline -abdomen and pelvis CT 05/29/2019 without evidence of acute abdominal process, noted mild hepatic steatosis, remote cholecystectomy and hysterectomy 8. DVT prophylaxis -Lovenox Patient was previously under care of Dr. Naveen Vaughn at [facility] but left practice after hospitalization in March last year. Unsure whether she establish with new PCP. She is chronic resident of [facility].
[2019-05-31] MEDS: ACETAMINOPHEN 650 MG SUPP PR (10:56)
[2019-05-31] MEDS: SODIUM CHLORIDE 0.9% 1,000 ML 100 ML IV (10:56)
[2019-05-31] MEDS: SODIUM CHLORIDE 0.9% 1,000 ML 1000 ML IV (11:30)
[2019-05-31] MEDS: ENOXAPARIN 40 MG/0.4 ML SYRINGE SUBCUT (12:34)
[2019-05-31] MEDS: DOPAMINE HCL IN DEXTROSE 5 % 400 MG/250 ML PLAST..BAG 22.969 MG IV (14:30)
--- NOTE | 2019-05-31 14:34 | P.EN_ITS ---
Event Note Date Patient Seen: 05/31/19 Time Patient Seen: 14:00 Event Note: Acute hypotension: I was asked to evaluate patient due to acute hypotension around 2:00 p.m. this afternoon. We had noted low urine output this shift and she got 1 L fluid bolus without improvement in her urine output but at that time she was not hypotensive. She then acutely dropped her blood pressure to 50 systolic. Heart rate in the 120s. At this point we started another fluid bolus and arranged for transfer to the intensive care unit. I am most concerned about acute adrenal insufficiency as patient had been on and off dexamethasone last year for cerebral edema associated with her brain tumor. She was not on steroids at the time of this admission but has been on midodrine for BP support. Plan: Transfer to ICU Hydrocortisone 200 mg IV x1 then 100 mg IV q.6 hours Dopamine drip titrate to map 65 NS bolus Code status: Patient's mom is DPOA and lives in [place]. I was able to talk to her by phone, reviewed current situation, and she would like patient to be DNR, no CPR and no intubation. She directs to keep patient comfortable if she is not responding to current resuscitation measures. Patient's brother and sister were in the room as I was talking to mom and verify and support change in code status. As previously noted, patient with very poor baseline health, essentially bed bound and needs 24/7 care, with poor prognosis of improvement of her underlying medical issues. Total time critical care floor management of up to 60 minutes during this afternoon's encounter.
[2019-05-31] MEDS: HYDROCORTISONE 100 MG/2 ML VIAL 200 MG IV (14:46)
[2019-05-31] MEDS: fentaNYL 100 MCG/2 ML INJ 25 MCG IV ×3 (15:02→15:57)
[2019-05-31] MEDS: NOREPINEPHRINE 4 MG in DEXTROSE 5% IN WATER 250 ML 38.1 ML IV (15:10)
--- NOTE | 2019-05-31 15:24 | RT ---
Called to room at 1400 for ABG. Patient obtunded with low BP, and minimally responsive to sternal rub. Sats 98% on RA. Nasal trumpet placed to aid in keeping airway patent due to snoring respirations. Patient transferred to ICU after rapid response called. Several attempts made to obtain ABG but patient was shut down peripherally and no pulse was found either radially or brachially with aid of Doppler. MD Garcia attempted femoral draw with aid of doppler, but unable to obtain as well. Patient's blood pressure continued to drop though she did become reactive to some pain. Sats stayed good throughout. Patient's family only wanted pressors given but did apply 6 liters nasal cannula after we were no longer able to obtain a sat due to vasoconstriction. Patient is being given fentanyl and family is at bedside. Current plan, as patient is on two different pressors and no intubation or CPR is the family's current wishes, is to let patient pass comfortably.
--- NOTE | 2019-05-31 15:25 | PC.NURSE ---
Addendum entered by Malika Ferguson R.N. 05/31/19 16:15: Pt did have a temperature of 101 earlier on in shift and was given a tylenol rectal suppository. This did bring her fever down and her respirations. She was transferred to the ICU at 1410. IV vanco and iv seizure medication not given and DR. Garcia aware of this. Original Note: 1400- Earlier in the morning patient was lethargic but would open her eyes to voice and sternal rub. BP wnl, and 95-100% on RA. Pt has multiple skin issues and possibly red man syndrome from IV Vanco per Dr. Garcia. Vanco dose was going to be decreased. Given 1 bolus of NS earlier as urine output was only about 50cc for the shift. Patients blood pressure down to 70s/40s and then 58/27 l.arm at 1408 and 1403 r.arm, 71/40. Family here to visit and asked to wait in the waiting room. BS 194 at this time as well. made the decision to transfer patient down to the ICU. Still having issues with BP and going down to 40/20s. Pt now has a nasal trumpet and IO access. Report passed onto RN for ICU.
--- NOTE | 2019-05-31 15:36 | PC.NURSE ---
Responded to staff emergency MULTIMEDIA PRODUCTION ASSISTANT at 1410. Pt is minimally responsive to painful stimuli. RR 20s on RA SPO2 96%. BPs low 50s/20s. Pt is noted to have erythemic rash with sloughing skin over much of her body surface area. Dr. Garcia at bedside giving verbal orders for Dopamine gtt, IVF bolus, and steroids. Pt was transferred to room 230. Pt with infiltrated PIV. Attempts x3 to initiate access with 1 successful [address] Garcia at bedside giving orders. Dopamine infusing. Dr. Garcia gave verbal order to place I/O. ENROLLED NURSE Mckenzie called to bedside and placed 45 MM 15 ga I/O to LLE. Pt tolerated well. IVFs and dopamine moved to I/O site. Dr Garcia attempted ABG unsuccessfully. Pt intermittently moaning to painful stimulus. Orders received for IV fentanyl. Given with good affect. Dr. Garcia spoke with family and clarified code status. Pt is a no code but family is accepting of current interventions. (See code flow sheet and emar for intervention times/med administration).
--- NOTE | 2019-05-31 16:24 | PC.NURSE ---
Addendum entered by Leelee Ludwig R.N. 05/31/19 19:30: 1800 - Pt moans during care. Does not open eyes. CO2 9, MD aware. Persistent hypotension. 55/37, Hr 113. Nasal trumpet to left nare. NC at 4L. RR 20's with deep respirations. Pharmacy notified to adjust vanco dosing. BG 319 per lab. Insulin per s/s. Edwards catheter with 50cc, cloudy urine. Slight repositioning. Unable to fully reposition r/t hemodynamic instability. Original Note: 1500 - Entered to Rapid Response in progress. Assist Coordinator Janet to obtain Fentanyl. Verbal order from Dr. Garcia to initiate Norepinephrine gtt. Medication mixed. Verbal verification from pharmacy, Eleazar, compatible with Dopamine. Gtt initiated at 1510 at 10mcg. Titrate to BP. Pt moaning to painful stimuli. Verbal orders for Fentanyl q 15 for pain. 1558 - Pt BP remains unresponsive to Dopamine at 103 cc/hr, Norepinephrine at 40 mcg[address] Garcia at bedside family agreeable to withdrawal care and continue providing comfort. Gtt and bolus infusions stopped. Fentanyl given. Questions answered with family. Comfort offered. Monitor.
[2019-05-31] MEDS: MORPHINE 5 MG/ML INJ IV (16:44)
[2019-05-31] MEDS: CEFTRIAXONE 1 GM/50 ML FROZ.PIGGY IV (17:46)
[2019-05-31 18:16] LABS: BUN Creatinine Ratio 10.5 (6-22); Blood Urea Nitrogen 20 mg/dL (7-17); Calcium 8.2 mg/dL (8.4-10.2); Chloride 114 mmol/L (98-107); Estimated Glomerular Filt Rate 27.2 mL/min (>60); Glucose 319 mg/dL (70-100); HEMOLYSIS < 15 (0-50); Hematocrit 37.6 % (36-46); Hemoglobin 10.8 g/dL (12.0-16.0); Mean Corpuscular HGB Conc 28.6 % (30-36); Mean Corpuscular Hemoglobin 30.9 PG (26-34); Platelet Count 308 X10^3/uL (150-400); Potassium 4.3 mmol/L (3.4-5.1); Red Blood Cell Count 3.48 X10^6/uL (4.0-5.2); Red Cell Distribution Width 17.7 % (11.6-14.8); Sodium 144 mmol/L (137-145); White Blood Cell Count 28.5 X10^3/uL (4.5-11.0)
[2019-05-31 18:20] LABS: Carbon Dioxide 9 mmol/L (22-32)
[2019-05-31 18:22] LABS: Add Manual Diff / Slide Review YES
[2019-05-31] MEDS: HYDROCORTISONE 100 MG/2 ML VIAL IV (18:41)
[2019-05-31 18:45] LABS: Dohle Bodies 2+; Neutrophils Absolute Manual 21090 /uL (3000-5900); Nucleated Red Blood Cells 3 #/Diff; Total Cells Counted 100; Toxic Granulation Present; Toxic Vacuolation 3+
[2019-05-31] MEDS: INSULIN GLARGINE 100 UNIT/ML 3ML PEN 30 UNIT SUBCUT (21:02)
[2019-05-31] MEDS: SODIUM CHLORIDE 0.9% 250 ML 21 ML IV (22:26)
[2019-06-01] VITALS (8 sets, daily range): BP systolic 67–79; BP diastolic 33–59; PULSE 105–108; RESP 13–20; TEMP 37.2–37.4; O2SAT 97–100
[2019-06-01] MEDS: HYDROCORTISONE 100 MG/2 ML VIAL IV ×2 (00:30→06:12)
[2019-06-01] MEDS: INSULIN ASPART 100 UNIT/ML INSULN PEN SUBCUT ×2 (00:30→06:13)
[2019-06-01] MEDS: MORPHINE 5 MG/ML INJ IV ×7 (01:15→23:55)
[2019-06-01] MEDS: levETIRAcetam 750 MG in SODIUM CHLORIDE 0.9% 100 ML 430 ML IV (01:15)
[2019-06-01] MEDS: VANCOMYCIN 1,500 MG/300 ML FROZ.PIGGY 120 MG IV (02:23)
[2019-06-01 05:23] LABS: Hematocrit 37.5 % (36-46); Hemoglobin 11.2 g/dL (12.0-16.0); Mean Corpuscular Hemoglobin 31.6 PG (26-34); Mean Corpuscular Volume 105.4 fL (80-100); Platelet Count 277 X10^3/uL (150-400); Red Blood Cell Count 3.56 X10^6/uL (4.0-5.2); Red Cell Distribution Width 17.5 % (11.6-14.8); White Blood Cell Count 26.3 X10^3/uL (4.5-11.0)
[2019-06-01 05:24] LABS: Add Manual Diff / Slide Review YES
[2019-06-01 05:26] LABS: BUN Creatinine Ratio 12.4 (6-22); Blood Urea Nitrogen 26 mg/dL (7-17); Calcium 8.6 mg/dL (8.4-10.2); Carbon Dioxide 13 mmol/L (22-32); Chloride 114 mmol/L (98-107); Estimated Glomerular Filt Rate 24.2 mL/min (>60); Glucose 347 mg/dL (70-100); HEMOLYSIS < 15 (0-50); Potassium 4.8 mmol/L (3.4-5.1); Sodium 145 mmol/L (137-145)
[2019-06-01 05:37] LABS: Neutrophils Absolute Manual 22881 /uL (3000-5900); Nucleated Red Blood Cells 3 #/Diff; Total Cells Counted 100
[2019-06-01 05:38] LABS: Polychromasia 1+
[2019-06-01 05:39] LABS: Dohle Bodies 1+; Toxic Vacuolation Present
[2019-06-01 05:40] LABS: Anisocytosis 1+; Toxic Granulation Present
[2019-06-01] MEDS: SCOPOLAMINE 1 PATCH TOP (06:12)
--- NOTE | 2019-06-01 06:44 | PC.NURSE ---
Electric Hoist Operator Note-Patient remains non-verbal, does flash eyes open to stimuli, does not track, moves upper extremeties purposefully, reaching to pull on NC or scratch at rash on chest. Medicated with 5mg IV morphine per prn for comfort, is effective. T 99.4, ST 105-110, BP remains 70s/40s with MAP 50s, see vital trends. Vancomycin, IV steroids, and IV Keppra administered as scheduled. Total UOP 125ml hannah urine. Family has been in room throughout night.
[2019-06-01] MEDS: diphenhydrAMINE 50 MG/ML VIAL 25 MG IV (09:09)
[2019-06-01] MEDS: HEPARIN 5,000 UNIT/ML VIAL 7500 UNIT SUBCUT (09:09)
[2019-06-01] MEDS: levoFLOXacin 250 MG/50 ML PIGGYBACK 100 MG IV (09:10)
[2019-06-01] MEDS: methylPREDNISolone 125 MG/2 ML VIAL IV (09:16)
--- NOTE | 2019-06-01 10:46 | P.PN_ITS ---
Subjective Subjective Date Patient Seen: 06/01/19 Interval history: Ritika Claudio is a 59-year-old female with a past medical history significant for oligodendraoglioma with prior radiation and chemotherapy on dexamethasone with subsequent cognitive impairment and seizure disorder, hypertension, hyperlipidemia, diabetes mellitus type 2, insulin using, morbid obesity (BMI 43.2), prior tobacco dependence, GERD, chronic pancreatitis, bladder stimulator in place (not a candidate for MRI/MRCP), bowel and bladder incontinence, debility, deconditioning and is wheelchair-bound at baseline requiring total care who presented to the ED via EMS from [facility] out of concern for altered mental status. HPI review of systems is unobtainable due to patient status. Interval history: The patient continues to have an erythematous rash with scattered bullae of her thorax which is starting to spread to her lower extremities. Discussed case with Dr. Shahzad Lyons of dermatology in [place] for which he believes this is likely metals sales representative of a toxic shock syndrome versus red man syndrome. Discontinued vancomycin and ceftriaxone and started Levaquin. The patient has multi-system organ failure including kidneys, liver and cardiac. Discussed the patient with her mother and FABIAN Talavera who would like her to be made comfort care only. Exam Vital Signs (past 8 hours): - 06/01/19 03:00 06/01/19 04:00 06/01/19 05:00 Temperature 99.0 F Pulse Rate 106 H 106 H 107 H Respiratory Rate 14 13 13 Blood Pressure 67/41 L 72/49 L 76/53 L Pulse Oximetry 99 98 98 06/01/19 06:30 06/01/19 08:45 Temperature 99.4 F Pulse Rate 106 H 108 H Respiratory Rate 13 20 Blood Pressure 79/46 L 69/51 L Pulse Oximetry 98 97 Oxygen Delivery Method Nasal Cannula Oxygen Flow Rate 0 Narrative Exam Narrative: General: Middle-aged female lying in bed, appears older than stated age, chronically ill, obtunded but appears uncomfortable and in pain. HEENT: Normocephalic, atraumatic. External ears without defect. Pupils pinpoint, equal, round, and reactive to light. Anicteric but edematous sclerae, moist conjunctivae, and no lid lag. Oropharynx dry mucosa. Neck: Supple. No jugular venous distension. No lymphadenopathy or thyromegaly. Cardiovascular: Regular rate and rhythm without murmurs, rubs, or gallops appreciated Pulmonary: Clear to auscultation bilaterally without crackles, wheezes, or rhonchi. Normal respiratory effort with no use of accessory muscles. Abdomen: Soft, obese, bowel sounds present, nontender, nondistended. Extremities: No clubbing or cyanosis. Anasarca. Skin: Extensive erythematous rash with scattered bullae on torso extending slightly to lower extremities. Objective Labs Result Diagrams: 06/01/19 04:46 06/01/19 04:46 Labs: Laboratory Results - last 24 hr 05/31/19 05/31/19 06/01/19 18:00 18:00 04:46 WBC 28.5 H D 26.3 H RBC 3.48 L 3.56 L Hgb 10.8 L 11.2 L Hct 37.6 37.5 MCV 108.0 H D 105.4 H MCH 30.9 31.6 MCHC 28.6 L D 30.0 RDW 17.7 H 17.5 H Plt Count 308 277 Neut % (Auto) Not Reportable Not Reportable Lymph % (Auto) Not Reportable Not Reportable Keith % (Auto) Not Reportable Not Reportable Eos % (Auto) Not Reportable Not Reportable Baso % (Auto) Not Reportable Not Reportable Lymph # (Auto) Not Reportable Not Reportable Keith # (Auto) Not Reportable Not Reportable Baso # (Auto) Not Reportable Not Reportable Total Counted 100 100 Seg Neutrophils % 57.0 72.0 H Band Neutrophils % 17.0 H 15.0 H Lymphocytes % (Manual) 11.0 L 7.0 L Atypical Lymphs % 3.0 H Monocytes % (Manual) 5.0 3.0 Metamyelocytes % 2.0 H 2.0 H Myelocytes % 5.0 H 1.0 H Neutrophils # (Manual) 32043 H 63702 H Nucleated RBCs 3 H 3 H Toxic Granulation Present H Present H Toxic Vacuolation 3+ Present H Dohle Bodies 2+ H 1+ H RBC Morphology Not Reportable See below Polychromasia 1+ H Anisocytosis 1+ H Sodium 144 Potassium 4.3 Chloride 114 H Carbon Dioxide 9 L* BUN 20 H Creatinine 1.90 H Estimated GFR 27.2 L BUN/Creatinine Ratio 10.5 Glucose 319 H Calcium 8.2 L 06/01/19 04:46 WBC RBC Hgb Hct MCV MCH MCHC RDW Plt Count Neut % (Auto) Lymph % (Auto) Keith % (Auto) Eos % (Auto) Baso % (Auto) Lymph # (Auto) Keith # (Auto) Baso # (Auto) Total Counted Seg Neutrophils % Band Neutrophils % Lymphocytes % (Manual) Atypical Lymphs % Monocytes % (Manual) Metamyelocytes % Myelocytes % Neutrophils # (Manual) Nucleated RBCs Toxic Granulation Toxic Vacuolation Dohle Bodies RBC Morphology Polychromasia Anisocytosis Sodium 145 Potassium 4.8 Chloride 114 H Carbon Dioxide 13 L BUN 26 H Creatinine 2.10 H Estimated GFR 24.2 L BUN/Creatinine Ratio 12.4 Glucose 347 H Calcium 8.6 Assessment & Plan Assessment & Plan narrative: Ritika Claudio is a 59-year-old female with a past medical history significant for oligodendraoglioma with prior radiation and chemotherapy on dexamethasone with subsequent cognitive impairment and seizure disorder, hypertension, hyperlipidemia, diabetes mellitus type 2, insulin using, morbid obesity (BMI 43.2), prior tobacco dependence, GERD, chronic pancreatitis, bladder stimulator in place (not a candidate for MRI/MRCP), bowel and bladder incontinence, debility, deconditioning and is wheelchair-bound at baseline requiring total care who presented to the ED via EMS from [facility] out of concern for altered mental status. 1. Palliative care. -Patient'smother Mackenzie Talavera and FABIAN has decided to withdraw care and keep patient comfortable. -Ordered comfort care medications including: Morphine, lorazepam, fentanyl, scopolamine, acetaminophen and Zofran. -Edwards catheter is in place for comfort. 2. Septic shock with multiorgan failure, present on admission. Active. -Source due to UTI and possible cellulitis with toxic shock syndrome. -Patient presented febrile, tachycardic, hypotensive, leukocytosis, elevated procalcitonin and lactate with end-organ dysfunction ZARA, encephalopathy, cardiac with source felt to be UTI and cellulitis -Early goal-directed therapy met including: IV fluid resuscitation and broad- spectrum antibiotics. Vasopressors were initiated and withdrawn at family's request. 3. Acute metabolic encephalopathy, present on admission. Active. -Secondary to sepsis and treated as above and below without improvement. -Patient received bolus of IV Keppra due to seizure history and recent low normal Keppra level. 4. Acute Enterobacter aerogenes UTI, present on admission. Active. -Urine culture grew Enterobacter aerogenes resistant to amoxicillin, cefazolin and nitrofurantoin. -Switched antibiotics from ceftriaxone and vancomycin to Levaquin 250 mg IV daily due to possible cross-reactivity with ceftriaxone as patient has penicillin allergy and erythematous rash likely toxic shock syndrome versus cellulitis versus red man syndrome. The patient's mother Mackenzie Talavera would like antibiotics to remain in place for now. 5. Cellulitis with probable toxic shock syndrome, present on admission. Active. -Unclear if rash on torso and spreading to lower extremities is metals sales representative of cellulitis versus other etiology. Differential diagnosis is vast and includes toxic shock syndrome, cross reactivity to ceftriaxone with penicillin allergy, red man syndrome, hypersensitivity reaction, Claude González syndrome. -Switched antibiotics from ceftriaxone and vancomycin to Levaquin 250 mg IV daily due to possible cross-reactivity with ceftriaxone as patient has penicillin allergy. The patient's mother Mackenzie Talavera would like antibiotics to remain in place for now. -Received methylprednisolone 125 mg IV x 1 and continue Benadryl 25 mg every 4 hours for possible allergic or hypersensitivity reaction. 6. Diabetes mellitus type 2, insulin using, chronic, present on admission. Active. -Glucose 405 on presentation and patient received 10 units IV insulin, glucose trending down. -Discontinued insulin patient as patient is palliative care only. 7. Seizure history, chronic, present on admission. Stable. -Unclear if patient had acute seizure causing or worsening encephalopathy. Patient is maintained on Keppra with recent low Keppra level in March 2019. -Received Keppra 1000 mg IV loading dose. Continue Keppra 750 mg IV twice daily as comfort measure. 8. Hepatic steatosis, chronic, present on admission. Stable. -Elevated liver enzymes appear improved from recent baseline. -CT abdomen and pelvis with contrast on 05/29/2019 without evidence of acute abdominal process, noted mild hepatic steatosis, remote cholecystectomy and hysterectomy. Code status: DNR/DNI DVT prophylaxis: SQ Heparin Disposition: Patient has been made palliative care only and is likely to in the next 24-48 hours.
[2019-06-01 11:25] LABS: Albumin 2.8 g/dL (3.5-5.0); Alkaline Phosphatase 194 U/L (38-126); Aspartate Aminotransferase 105 IU/L (14-36); Bilirubin Conjugated 0.1 md/dL (0.0-0.3); Bilirubin Total 1.3 mg/dL (0.2-1.3); Bilirubin Unconjugated 0.2 mg/dL (0.0-1.1); Globulin 2.8 g/dL (1.7-4.1); HEMOLYSIS < 15 (0-50); Total Protein 5.6 g/dL (6.3-8.2)
[2019-06-01 11:33] LABS: Alanine Aminotransferase 60 IU/L (<35)
[2019-06-01 11:40] LABS: Procalcitonin 32.05 ng/mL (<0.5)
--- NOTE | 2019-06-01 14:03 | PC.NURSE ---
Addendum entered by Monico Slater R.N. 06/01/19 14:39: Titrated O2 to 2L NC as pt's SPO2 was consistently greater than 95% when on continuous pulse ox and higher flow rates of O2 may cause drying of mucous membranes. Family agreeable. Removed nasal trumpet after premedicating for turn and partial linen change. Pt tolerated well. Original Note: Dr. Lindo rounded early AM. Reviewed pt assessment, skin integrity, VS, labs. Dr. Lindo called to DPOA to update on pt condition and clarify goals of care. Plan is to perform limited interventions with comfort as the goal. Family at bedside requesting that pt not be poked and prodded. Educated to interventions available to promote comfort. They verbalize understanding. They decline consult to hospital laborer cook house.
--- NOTE | 2019-06-01 22:58 | PC.NURSE ---
Patient on comfort care. Multiple family members present. Family requests that patient not be disturbed unless she needs to be changed and to premedicate with morphine at that time. Patient has mostly been nonresponsive to voice but has opened eyes on occasion and when being moved. Patient was changed once during shift. Vitals are daily only. 2L O2 NC for comfort, very noisy mouth breathing, slow and deep.
[2019-06-01] MEDS: levETIRAcetam 750 MG in SODIUM CHLORIDE 0.9% 100 ML 200 ML IV (23:56)
[2019-06-02] VITALS: PULSE 112; RESP 8; O2SAT 98
[2019-06-02] MEDS: MORPHINE 5 MG/ML INJ IV ×3 (03:21→19:33)
--- NOTE | 2019-06-02 06:05 | PC.NURSE ---
Rolling Mill Plugger Note-Patient is comfort care, unresponsive to care except to moan occasionally during care, pre-medicated with 5mg IV morphine prior to repositioning, and linen change, continues to weep from popped blisters on torso, righ side > than left. Dereje-Stoke breathing, SpO2 >92% on 2L NC. HR tachy 115. IV TKO for meds, total UOP 75ml tea color. Family at bedside overnight.
[2019-06-02 08:17] VITALS: BP 106/73; PULSE 115; RESP 8; TEMP 38.4; O2SAT 95
[2019-06-02] MEDS: levoFLOXacin 250 MG/50 ML PIGGYBACK 100 MG IV (08:54)
[2019-06-02 09:12] LABS: Levetiracetam Keppra 15.4 mcg/mL (12.0-46.0)
[2019-06-02] MEDS: SODIUM CHLORIDE 0.9% 250 ML 21 ML IV (12:36)
[2019-06-02] MEDS: levETIRAcetam 750 MG in SODIUM CHLORIDE 0.9% 100 ML 200 ML IV (12:37)
--- NOTE | 2019-06-02 13:38 | PM.PN.1 ---
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 out of concern for altered mental status. Patient has been on comfort care accept for antibiotic and anti seizure IV medications. We are treating sources of pain due to her erythematous rash with scattered bullae thought secondary to toxic shock syndrome. She has multisystem organ failure including kidneys with less than 10 cc/hour urine output, liver and circulatory collapse although random BP this morning was at around 100 systolic, possibly due to inadequately treated pain. Exam Vital Signs (past 8 hours): - 06/02/19 08:17 Temperature 101.2 F H Pulse Rate 115 H Respiratory Rate 8 L Blood Pressure 106/73 Pulse Oximetry 95 Oxygen Delivery Method Nasal Cannula Oxygen Flow Rate 2 Narrative Exam Narrative: Patient is unresponsive. Pupils equal and slightly reactive. There is extensive erythematous, D squat made if rash on her torso and arms with scattered bullae. 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 out of concern for altered mental status. 1. Palliative care. -Patient'smother Mackenzie Talavera and DPOA had decided to withdraw care and keep patient comfortable. She is due to arrive here from [place] this afternoon whereupon we will have further discussion regarding patient's management. -continue comfort care medications including: Morphine, lorazepam, fentanyl, scopolamine, acetaminophen and Zofran. -Edwards catheter is in place for comfort. 2. Septic shock with multiorgan failure, present on admission. Active. -Source due to UTI and possible cellulitis with toxic shock syndrome. -Patient presented febrile, tachycardic, hypotensive, leukocytosis, elevated procalcitonin and lactate with end-organ dysfunction ZARA, encephalopathy, cardiac with source felt to be UTI and cellulitis -Early goal-directed therapy met including: IV fluid resuscitation and broad-spectrum antibiotics. Vasopressors were initiated and withdrawn at family's request due to medical futility. 3. Acute metabolic encephalopathy, present on admission. Active. -Secondary to sepsis, circulatory collapse, and treated as above and below without improvement. 4. Acute Enterobacter aerogenes UTI, present on admission. Active. -Urine culture grew Enterobacter aerogenes resistant to amoxicillin, cefazolin and nitrofurantoin. -Switched antibiotics from ceftriaxone and vancomycin to Levaquin 250 mg IV daily due to possible cross-reactivity with ceftriaxone as patient has penicillin allergy and erythematous rash likely toxic shock syndrome versus cellulitis versus red man syndrome. The patient's mother Mackenzie Talavera would like antibiotics to remain in place for now. 5. Cellulitis with probable toxic shock syndrome, present on admission. Active. -Unclear if rash on torso and spreading to lower extremities is site safety representative of cellulitis versus other etiology. Differential diagnosis is vast and includes toxic shock syndrome, cross reactivity to ceftriaxone with penicillin allergy, red man syndrome, hypersensitivity reaction, Claude González syndrome. -Switched antibiotics from ceftriaxone and vancomycin to Levaquin 250 mg IV daily due to possible cross-reactivity with ceftriaxone as patient has penicillin allergy. The patient's mother Mackenzie Talavera had indicated she would like antibiotics to remain in place for now. -Received methylprednisolone 125 mg IV x 1 and continue Benadryl 25 mg every 4 hours for possible allergic or hypersensitivity reaction. 6. Diabetes mellitus type 2, insulin using, chronic, present on admission. Active. -Glucose 405 on presentation and patient received 10 units IV insulin, glucose trending down. -Discontinued insulin patient as patient is palliative care only. 7. Seizure history, chronic, present on admission. Stable. -Unclear if patient had acute seizure causing or worsening encephalopathy. Patient is maintained on Keppra with recent low Keppra level in March 2019. -Received Keppra 1000 mg IV loading dose. Continue Keppra 750 mg IV twice daily although this will need to be discussed with DPOA as unlikely to affect clinical outcome. 8. Hepatic steatosis, chronic, present on admission. Stable. -Elevated liver enzymes appeared improved from recent baseline. -CT abdomen and pelvis with contrast on 05/29/2019 without evidence of acute abdominal process, noted mild hepatic steatosis, remote cholecystectomy and hysterectomy. 9. Acute adrenal crisis -thought contributor to patient's circulatory collapse resulting in ICU transfer and initiation of vasopressors over the weekend -currently not on steroid replacement due to transition to comfort care measures
--- NOTE | 2019-06-02 16:02 | CM.DPC ---
DCP/continued: Reviewed chart. Spoke with Dr. Garcia in AM rounds. He reports that patient is currently on comfort measures. Dr. Garcia reports that patient's mother/Mackenzie will be arriving today from [place]. Dr. Garcia plans to discuss next steps with mother/DPOA when she arrives. Unclear if IV abx treatment will continue vs. complete comfort and transfer to facility? HATCHERY HELPER placed call to [facility] spoke with Kalli. She reports that they can accept under comfort care if needed. They can also initiate hospice if needed. Patient has both Medicare and Medicaid. Kalli at [facility] reports that patient will have higher acuity care at [facility] than at [facility]. DPOA will need to make final decision on where they would like patient to be under comfort care. P: Pending. [facility] on comfort measures vs. return to [facility] with hospice? Patient can have hospice at either place under her insurance. MERRY Jamil
[2019-06-03 00:45] VITALS: PULSE 115; RESP 12; O2SAT 97
[2019-06-03] MEDS: levETIRAcetam 750 MG in SODIUM CHLORIDE 0.9% 100 ML IV (00:51)
[2019-06-03] MEDS: SODIUM CHLORIDE 0.9% 250 ML 21 ML IV (00:52)
[2019-06-03] MEDS: MORPHINE 5 MG/ML INJ IV ×3 (00:52→11:14)
[2019-06-03 06:10] VITALS: PULSE 115; RESP 10; O2SAT 99
--- NOTE | 2019-06-03 07:04 | PC.NURSE ---
Level Vial Inspector And Tester Note-Patient is unresponsive. Medicated with 5mg IV morphine per prn, is effective, tolerates turning and linen changes. Skin still sloughing and peeling. Total UOP 250ml.
[2019-06-03] MEDS: LORazepam 2 MG/ML INJ 1 MG IV (11:14)
[2019-06-03] MEDS: SCOPOLAMINE 1 PATCH TOP (11:16)
[2019-06-03 12:16] VITALS: TEMP 36.4
--- NOTE | 2019-06-03 13:45 | PC.NURSE ---
pt transferred to [facility] - report called to severo family here and supportive
--- NOTE | 2019-06-03 14:20 | P.DS_ITS ---
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 Discharge Providers Provider Date of admission: 05/29/19 18:13 Discharge Date: 06/03/19 Primary care physician: Naveen Vaughn MD Consults: 05/29/19 20:10 Consult to Discharge Planning Routine Comment: Discharge provider: Vince Garcia MD Summary Hospital Course Discharge Diagnosis: 1. Septic shock with multiorgan system failure 2. Acute adrenal crisis 3. Acute metabolic encephalopathy 4. Acute tubular necrosis 5. Enterobacter UTI 6. Cellulitis of lower abdomen and lower extremities 7. Likely toxic shock syndrome causing severe rash 8. Type 2 diabetes insulin using 9. Seizure history 10. Hepatic steatosis Hospital Course: Patient admitted with sepsis and acute metabolic encephalopathy with evidence of Enterobacter UTI and cellulitis. She really never became responsive. On hospital day 4. Patient became acutely hypotensive and transferred to the ICU. She was further volume resuscitated, given stress dose steroids, and started on 2 vasopressors which were maximized with patient still extremely hypotensive with blood pressures in the 40 systolic range. Subsequently after discussion with her mom who is DPOA family elected to withdraw aggressive care, and to institute comfort care measures, but to continu e the antibiotic and IV seizure medication. Over course of ensuing hours patient's blood pressure did recover somewhat although clinically she was deteriorating with lack of urine output and progressive severe rash on her trunk and extremities thought secondary to toxic shock syndrome. On a.m. of discharge mom decided to stop all IV medications and keep patient on comfort care and agreed patient to transfer to [facility] across the street with hospice consult pending. The physicians and nursing staff taking care of patient are in full agreement with decision for comfort care in light of her very poor survival prognosis. At time of discharge patient appears to be resting comfortably and breathing mostly regularly with occasional very brief apneic episodes. Patient is expected to pass away at nursing facility. Time Spent with Patient Time spent: Greater than 30 minutes Exam Vital Signs (past 8 hours): - 06/03/19 12:16 Temperature 97.6 F Oxygen Delivery Method Nasal Cannula Oxygen Flow Rate 2 Objective Labs Result Diagrams: 06/01/19 04:46 06/01/19 04:46 Discharge Plan Discharge Plan Patient Disposition: SNF Transfer to: [facility] Discharge comment: Patient is being discharged with comfort care and expected to pass away at facility. Hospice referral requested. Discharge orders & Medications Prescriptions: New morphine 20 mg/5 mL (4 mg/mL) solution 20 mg PO Q30MIN PRN (Reason: comfort care) Qty: 500 RF: 0 lorazepam 2 mg/mL concentrate 1 mg BUCCAL Q60MIN PRN (Reason: anxiety) Qty: 30 RF: 0 scopolamine base [Transderm-Scop] 1 mg over 3 days Patch 3 Day 1 patch topical Q72H Qty: 4 RF: 0 Discontinued ondansetron HCl 4 mg tablet 4 mg PO Q6H PRN (Reason: Nausea And Vomiting) Qty: 30 RF: 0 meclizine 25 mg tablet 25 mg PO Q6H PRN (Reason: dizziness or vertigo) Qty: 90 RF: 3 acetaminophen 325 mg tablet 650 mg PO Q4H PRN (Reason: Fever Or Pain) Qty: 90 RF: 0 hydrocortisone acetate 1 % cream 1 applic TOPICAL Q8H PRN (Reason: Rash) Qty: 57 RF: 0 midodrine 5 mg tablet 5 mg PO BID Qty: 30 RF: 8 citalopram 20 mg tablet 20 mg PO DAILY Qty: 90 RF: 1 cholecalciferol (vitamin D3) 1,000 unit capsule 1,000 unit PO DAILY Qty: 90 RF: 3 aspirin 81 mg tablet,delayed release (DR/EC) 81 mg PO DAILY Qty: 30 RF: 11 omeprazole 20 mg capsule,delayed release(DR/EC) 20 mg PO BID Qty: 180 RF: 1 magnesium oxide 400 mg (241.3 mg magnesium) tablet 400 mg PO BID Qty: 60 RF: 5 melatonin 3 mg tablet 6 mg PO BEDTIME Qty: 180 RF: 0 polyethylene glycol 3350 17 gram/dose powder 17 gram PO DAILY Qty: 510 RF: 3 nystatin 100,000 unit/gram powder 1 applic topical PRN PRN (Reason: Rash) Qty: 30 RF: 3 furosemide 40 mg tablet 40 mg PO DAILY RF: 0 sennosides 8.6 mg Tablet 17.2 mg PO BID RF: 0 atorvastatin 10 mg tablet 10 mg PO BEDTIME RF: 0 Basaglar KwikPen U-100 Insulin 100 unit/mL (3 mL) insulin pen 30 unit subcut BEDTIME RF: 0 folic acid 400 mcg tablet 0.4 mg PO BEDTIME RF: 0 furosemide 80 mg tablet 80 mg PO DAILY RF: 0 levetiracetam 750 mg tablet 750 mg PO BEDTIME RF: 0 levetiracetam 500 mg tablet 500 mg PO QAM RF: 0 potassium chloride 20 mEq tablet,ER particles/crystals 20 meq PO BID RF: 0 acetaminophen 650 mg Suppository 650 mg NM Q4H PRN (Reason: Fever) RF: 0 Novolog Flexpen U-100 Insulin 100 unit/mL (3 mL) insulin pen See Rx Instructions .ROUTE .COMPLEX RF: 0 Novolog Flexpen U-100 Insulin 100 unit/mL (3 mL) insulin pen 15 unit SUBCUT BID RF: 0 No Action (DME) Easy Touch Pen Needle 30 gauge x 5/16 needle See Dose Instructions .ROUTE .MEDSUPPLY Qty: 100 RF: 1 (DME) lancets [TRUEplus Lancets] 30 gauge misc See Rx Instructions .ROUTE .MEDSUPPLY Qty: 100 RF: 3 Discharge Health Status Multidrug resistant organism: No MDRO Precautions: [facility] Diet/Activity/Treatments Diet comment: NPO Discharge Data Primary Care Provider: Naveen Vaughn Discharges patient from system. Discharge Date/Time: 06/03/19 13:00
== END 2019-06-03 13:00 | DRG 871 ==
LOC: ED 17:53 → AC 18:14 → ICU 06-02 08:41
PROVIDERS: Internal Medicine; Nurse Practitioner Adult Health; Nurse Practitioner Gerontology; Admitting Provider Internal Medicine; Emergency Provider Nurse Practitioner Family; PCP Internal Medicine; Visit Provider Internal Medicine
DX: A41.9 Sepsis, unspecified organism (principal); R65.21 Severe sepsis with septic shock; G93.41 Metabolic encephalopathy; K72.00 Acute and subacute hepatic failure without coma; N17.0 Acute kidney failure with tubular necrosis; N39.0 Urinary tract infection, site not specified; Z16.11 Resistance to penicillins; Z16.19 Resistance to other specified beta lactam antibiotics; Z16.39 Resistance to other specified antimicrobial drug; E27.2 Addisonian crisis; Z68.42 Body mass index [BMI] 45.0-49.9, adult; G40.802 Other epilepsy, not intractable, without status epilepticus; C71.9 Malignant neoplasm of brain, unspecified; L03.116 Cellulitis of left lower limb; L03.115 Cellulitis of right lower limb; E11.65 Type 2 diabetes mellitus with hyperglycemia; E66.01 Morbid (severe) obesity due to excess calories; Z99.3 Dependence on wheelchair; D64.9 Anemia, unspecified; B96.89 Other specified bacterial agents as the cause of diseases classified elsewhere; Z51.5 Encounter for palliative care; Z87.891 Personal history of nicotine dependence; Z79.4 Long term (current) use of insulin
CPT/HCPCS: 36415; 36600; 51701; 70450; 71045; 74177; 80048; 80053; 80076; 80177; 81001; 82009; 82140; 82550; 82553; 82805; 82962; 83605; 83690; 83735; 84145; 84146; 84484; 85025; 85610; 85730; 87040; 87077; 87086; 87186; 93005; 93010; 94762; 96361; 96365; 99285; J1200; J1644; J1650; J1720; J1953; J2060; J2270; J2930; J3010; J3475; J3480; Q9967